=== PATIENT | female | born 1950 | race Caucasian/White ===

== ENCOUNTER → 2022-12-06 13:54 | Outpatient (BNVA) | payer MEDICARE, SELFPAY | PROVIDERS: PCP Physical Medicine & Rehabilitation; Visit Provider Physician Assistant | DX: M53.3 Sacrococcygeal disorders, not elsewhere classified (principal); G89.29 Other chronic pain; M43.26 Fusion of spine, lumbar region; Z85.528 Personal history of other malignant neoplasm of kidney; Z90.5 Acquired absence of kidney | CPT/HCPCS: 99202 ==

== ENCOUNTER 2024-03-04 08:22 | Outpatient (REF) | payer MEDICARE, SELFPAY ==
--- NOTE | ~2024-03-04 | XR_ITS ---
EXAMINATION: XR PELVIS CLINICAL INFORMATION: Hip pain. COMPARISON: None available. TECHNIQUE: AP view of the pelvis. FINDINGS: There is bony demineralization. The right acetabular joint space is well-maintained. There is moderate narrowing of the supermedial left acetabular joint space. There is peripheral osteophyte formation of the articular surfaces of the left hip. There is subchondral sclerosis of the acetabular roofs bilaterally. The femoral heads are smooth. The sacroiliac joints are symmetric and well-maintained. The pubic symphysis is intact. There are degenerative changes of the lumbosacral spine. L4-5 fusion hardware is noted. There are abdominal and pelvic surgical clips. XR/XR pelvis 1-2V IMPRESSION: 1. There is moderate to marked osteoarthritic change of the left hip, and minimal osteoarthritic change is seen of the right hip. 2. No fracture or dislocation is seen. Electronically signed by: Zane Lopez MD 04/02/2024 04:20 PM EDT
== END 2024-03-04 08:23 | disposition home or self-care (01) ==
LOC: HO.HOSX 08:22
PROVIDERS: Visit Provider Orthopaedic Surgery
DX: M25.559 Pain in unspecified hip (principal); M16.12 Unilateral primary osteoarthritis, left hip
CPT/HCPCS: 72170; 99202

== ENCOUNTER 2024-03-04 09:04 | Outpatient (AMB) | payer MEDICARE, SELFPAY ==
--- NOTE | 2024-03-04 09:10 | A.OFFVIS_ITS ---
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 Patient reports thatthis pain has been present for about two years now. No hx of physical therapy. About 3 months ago she had injections done in the hip andl the knee. She explains that the injection administered to the lateral aspect of the hip. She has some numbness and tingling radiating down the leg, which does improve with movement. Her pain is felt more significantly with gait initiation and prolonged walking. 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 Patient reports that this pain has been present for about two years now. No hx of physical therapy. About 3 months ago she had injections done in the hip andl the knee. She explains that the injection administered to the lateral aspect of the hip. She has some numbness and tingling radiating down the leg, which does improve with movement. Her pain is felt more significantly with gait initiation and prolonged walking. She had a spinal fusion which she feels contributes to much of her buttock pain. She has had intra-articular injections which have only been minimally helpful. 2 years ago she was able to play pickleball and walk comfortably. SHe would like to get back to such activity. [facility] Surgical History (Updated 03/04/24 @ 09:18 by Holly Alonso [facility]) History of back surgery Hx of right knee surgery History of left knee surgery History of hysterectomy H/O bilateral breast biopsy Hx of appendectomy (~1967) Physical Exam Vital Signs: BMI result Body Mass Index 25.8 Extrem Other: + Trendelenberg gait on the left + impingement on left hip Results Reviewed Results Reviewed: I personally reviewed relevant radiographs. S/p Lumbar fusion with left hop moderate to severe OA. Assessment & Plan Assessment & Plan (1) Arthritis of left hip: Code(s): M16.12 - Unilateral primary osteoarthritis, left hip Category: Medical Plan: This is a 73 yo F with left hip OA. She cannot walk comfortably or engage in daily activities without pain. She has taken NSAIDs (Meloxicam) and had intra- articualr injections with no benefit. This pain has been worsening for ~2 years. I recommend left SAM. I discussed the risks benefits and alternatives including but not limited to the risk of pain, infection, dislocation, LLD, dislocation, nerve injury, need for further surgery as well as potential medical complications such as blood clots, pulmonary embolism and cardiac complications. SHe expressed understanding and would like to proceed forward. We will have her speak with our Nurse Navigator and begin the pre operative clearance process. All her questions were answered. Plan I recommend Left SAM, She will meet with our Nurse Navigator Kathy for surgical planning Orders: Orders XR pelvis 1-2V Today M25.559 - Pain in unspecified hip Coding Level of Care Code New Pt Level 4 (77810) Diagnoses Arthritis of left hip M16.12
[2024-03-04 09:12] VITALS: BMI 25.8
== END 2024-03-04 10:00 | disposition home or self-care (01) ==
PROVIDERS: PCP Physical Medicine & Rehabilitation; Visit Provider Orthopaedic Surgery
DX: M16.12 Unilateral primary osteoarthritis, left hip (principal)
CPT/HCPCS: 99204

== ENCOUNTER → 2024-03-12 08:49 | Outpatient (BNVA) | payer MEDICARE, SELFPAY | PROVIDERS: PCP Internal Medicine | DX: Z01.818 Encounter for other preprocedural examination (principal) ==

== ENCOUNTER 2024-04-11 08:04 | Outpatient (REF) | payer MEDICARE, SELFPAY ==
--- NOTE | ~2024-04-11 | XR_ITS ---
EXAMINATION: XR HIP, LEFT CLINICAL INFORMATION: Left hip pain. Preoperative evaluation. COMPARISON: Pelvic radiograph dated 03/04/2024. TECHNIQUE: AP view of the pelvis as well as AP and frog-leg lateral views of the left hip. FINDINGS: Severe left hip joint space narrowing with subchondral sclerosis, marginal osteophytes, and femoral neck buttressing. Mild right hip joint space narrowing with marginal osteophytes. No acute fracture or dislocation. No concerning lytic or blastic osseous lesion. No evidence of femoral head avascular necrosis. XR/XR hip LT w PEL1V IMPRESSION: 1. Severe left hip osteoarthritis with femoral neck buttressing. 2. Mild right hip osteoarthritis. Electronically signed by: Alireza Thacker MD 04/17/2024 12:05 PM EDT
== END 2024-04-11 08:05 | disposition home or self-care (01) ==
LOC: HO.HOSX 08:04
PROVIDERS: Visit Provider Physician Assistant
DX: Z01.818 Encounter for other preprocedural examination (principal); M25.552 Pain in left hip; M16.12 Unilateral primary osteoarthritis, left hip
CPT/HCPCS: 73502; 99212

== ENCOUNTER 2024-04-11 09:06 | Outpatient (AMB) | payer MEDICARE, SELFPAY ==
--- NOTE | 2024-04-11 09:09 | A.OFFVIS_ITS ---
Vital Signs 04/11/24 09:13 Height 5 ft 6 in Weight 160 lb BMI 25.8 Intake Visit Reasons: Pre-Op: L SAM w/NE 04/17/24 Intake Note: Courtney is a 73 year old female who presents today for a pre op appointment for her left SAM 04/17/24 NE. Allergies itraconazole [From Sporanox] Allergy (Severe, Verified 04/11/24 09:12) Facial Swelling, throat swelling HPI HPI Pre-Op: L SAM w/NE 04/17/24: Details: 73-year-old female who presents in the office today for her preoperative history and physical exam prior to a left total hip arthroplasty to be performed on 04/17/[address] Akhil Donato.?She has tried and fail all conservative treatment and the left hip osteoarthritis has affected her quality of life and therefore, she has elected to move forward with a left total hip arthroplasty. ? Patient has an allergy history, as follows:? -Itraconazole; facial edema and throat edema? ? Patient is currently taking, as follows:? -Bupropion HCI SR 150 mg PO QAM? -Calcium carbonate 200 mg PO BID PRN? -Fluoxetine 40 mg PO QAM? -Omeprazole magnesium 20 mg PO daily PRN? -Solifenacin 5 mg PO daily? ? Patient has a medical history, as follows:? -Depression? -Anxiety? -Fatty liver? -GERD? -Hx of blood transfusion? -Hx of kidney cancer? ? Patient has a surgical history, as follows:? -Hx of nephrectomy, left 2005? -Hx?of pubovaginal sling? -Hx of colonoscopy? -Hx of tubal ligation? -Hx of ovarian cystectomy? -Hx of back surgery? -Hx of right knee surgery? -Hx of left knee surgery? -Hx of hysterectomy? -Hx?bilateral breast biopsy? -Hx of appendectomy? ? Patient has a social history, as follows:? -Tobacco: Former user? PFSH Medical History (Updated 04/09/24 @ 10:44 by Maria Dolores Chen RN) Depression Anxiety Arthritis Fatty liver Osteoarthritis Back pain GERD (gastroesophageal reflux disease) History of blood transfusion (~2000) History of kidney cancer Surgical History (Updated 04/11/24 @ 09:38 by Christi George PA-C) History of nephrectomy, left (~2005) History of pubovaginal sling Hx of colonoscopy Hx of tubal ligation Hx of ovarian cystectomy History of back surgery Hx of right knee surgery History of left knee surgery History of hysterectomy H/O bilateral breast biopsy Hx of appendectomy (~1966) Social History (Updated 04/11/24 @ 09:12 by Олег Lazaro) Are you a primary primary health care nurse to a significant other at home: No Do you presently have visiting nurse or other home services: No Alcohol intake: never Comment: aware of trip hazard Patient Tobacco Use Status: Former Tobacco user Tobacco use type: Cigarette Review of Systems Const All systems reviewed & are unremarkable except as noted in HPI and below Physical Exam Vital Signs: BMI result Body Mass Index 25.8 Const General: cooperative, healthy appearing, comfortable, no acute distress, well developed, alert and awake Orientation/consciousness: patient oriented x3 HEENT Head: Yes normal to inspection, Yes normocephalic and Yes atraumatic Eyes General: appearance normal, both eyes and all related structures Neck Neck: Yes normal visual inspection and Yes no lymphadenopathy Resp Effort & Inspection: normal respiratory effort and able to speak in complete sentences Cardio Rate: regular rate Peripheral pulses: Peripheral pulses 2+ throughout GI Inspection: Yes normal to inspection Palpation (GI): Soft to palpation Skin General skin exam: no rashes or lesions noted Neuro General: patient oriented x3 Extrem Other: + Trendelenberg gait on the left + impingement on left hip Psych Mental Status: mental status grossly normal Assessment & Plan Assessment & Plan (1) Arthritis of left hip: Code(s): M16.12 - Unilateral primary osteoarthritis, left hip Category: Medical Plan Ms. De Santiago is a 73-year-old female who presents in the office today for her preoperative history and physical exam prior to a left total hip arthroplasty to be performed on 04/17/[address] Akhil Donato.?? ? Patient has an allergy history, as follows:? -Itraconazole; facial edema and throat edema? ? Patient is currently taking, as follows:? -Bupropion HCI SR 150 mg PO QAM? -Calcium carbonate 200 mg PO BID PRN? -Fluoxetine 40 mg PO QAM? -Omeprazole magnesium 20 mg PO daily PRN? -Solifenacin 5 mg PO daily? ? Patient has a medical history, as follows:? -Depression? -Anxiety? -Fatty liver? -GERD? -Hx of blood transfusion? -Hx of kidney cancer; in 2006, has one kidney ? Patient has a surgical history, as follows:? -Hx of nephrectomy, left 2005? -Hx?of pubovaginal sling? -Hx of colonoscopy? -Hx of tubal ligation? -Hx of ovarian cystectomy? -Hx of back surgery? -Hx of right knee surgery? -Hx of left knee surgery? -Hx of hysterectomy? -Hx?bilateral breast biopsy? -Hx of appendectomy? ? Patient has a social history, as follows:? -Tobacco: Former user? ? I discussed in detail the procedure and what to expect pre and post operatively. We discussed the risks, benefits, alternatives to the surgery and the rehabilitation course. The risks include infection, bleeding, nerve injury, ongoing pain, swelling, and stiffness, perioperative risk of injury to bones and soft tissues, and blood clots.?? ? I have answered all questions and with their understanding they have consented to move forward with a left total hip arthroplasty to be performed on 04/17/[address] Akhil Donato.? Patient confirms having a walker. We discussed post operative PT. The patient would like to attend an outpatient facility but is unsure the location at this time. I will place the order today and the patient will call once she decides where she would like to attend. The order will be faxed at that time. ? Patient is unable to take NSAIDs due to a hx of nephrectomy in 2005. Will be prescribe Lovanox for 6 weeks post-op for DVT prophylaxis due to hx of kidney cancer. Follow-up will be at the post operative appointment on 05/02/24, or sooner if needed.? ? X-rays obtained for surgical planning.? Orders: Orders XR hip LT w PEL1V Today M25.559 - Pain in unspecified hip PT Evaluation and Treatment Today Z96.642 - Presence of left artificial hip joint Patient Instructions: Scribed by Kisha Berg medical review coordinator, for Christi George PA-C on 04/11/2024 at 9:25 am, EST.? Coding Level of Care Code Global (91136) Diagnoses Arthritis of left hip M16.12
[2024-04-11 09:13] VITALS: BMI 25.8
== END 2024-04-11 09:36 | disposition home or self-care (01) ==
PROVIDERS: PCP Internal Medicine; Visit Provider Physician Assistant
DX: M16.12 Unilateral primary osteoarthritis, left hip (principal)
CPT/HCPCS: 99024

== ENCOUNTER 2024-04-17 06:31 | Inpatient (IN) | payer MEDICARE, SELFPAY ==
[2024-04-09 10:24] VITALS: BP 126/76; PULSE 88; RESP 16; O2SAT 96; BMI 25.5
--- NOTE | 2024-04-09 10:47 | HO.ANESPROP2 ---
Documented by User: Anju Landaverde NP 04/16/24 10:34 HPI - Anesthesia Eval Consult details Narrative: 73yo F for Left Hip Total Replacement, 04/17/24 Medically optimized per [facility] preop clinic Cardiac optimized No recent illness. Mild seasonal allergy, no PND No CP/SOB with limited activity d/t hip pain GERD: ppi controls PMFSH Active Problems Active Problems: All Active Problems Arthritis of left hip (Acute) Chronic SI joint pain (Acute) Past Medical History Medical History Depression Anxiety Arthritis Fatty liver Osteoarthritis Back pain GERD (gastroesophageal reflux disease) History of blood transfusion (~2000) History of kidney cancer Family History Family history of problems with anesthesia: No Surgical History Surgical History History of nephrectomy, left (~2005) History of pubovaginal sling Hx of colonoscopy Hx of tubal ligation Hx of ovarian cystectomy History of back surgery Hx of right knee surgery History of left knee surgery History of hysterectomy H/O bilateral breast biopsy Hx of appendectomy (~1966) History of Problems with Anesthesia: No Social History Social History Household Members: Spouse and Significant Other Housing: House Are you a primary rn progressive care unit to a significant other at home: No Do you presently have visiting nurse or other home services: No Alcohol intake: never Comment: aware of trip hazard Patient Tobacco Use Status: Former Tobacco user Tobacco use type: Cigarette Smoked in Last 30 Days: No Use of substances other than those prescribed or required for medical reasons: No Have you been hit, kicked, punched, or otherwise hurt by someone within the past year? If so, by whom?: No Spiritual Healthcare Practices: none Oriental Orthodox Healthcare Practices: none Cultural Healthcare Practices: none Are you DNR?: No Advance Directives: No Advance Directives Information Provided: Yes Advance Directives on File: No Recently lost weight without trying: No Nutrition Risks: No Nutritional Risk Meds Allergies Allergy/AdvReac Type Severity Reaction Status Date / Time itraconazole [From Sporanox] Allergy Severe Facial Verified 04/11/24 09:12 Swelling, throat swelling Home Medications ?Medication ?Instructions ?Recorded ?Confirmed ?Last Taken ?Type solifenacin 5 mg tablet (Vesicare) 5 mg PO DAILY 03/04/24 04/09/24 04/16/24 History bupropion HCl 150 mg tablet,12 hr 150 mg PO QAM 04/09/24 04/09/24 04/16/24 History sustained-release calcium carbonate (Tums) 200 mg PO BID PRN Gastric Reflux 04/09/24 04/09/24 04/16/24 History fluoxetine 40 mg capsule 40 mg PO QAM 04/09/24 04/09/24 04/17/24 History omeprazole magnesium 20 mg 20 mg PO DAILY PRN Gastric Reflux 04/09/24 04/09/24 04/17/24 History tablet,delayed release (Prilosec OTC) Exam Height,Weight and Vital Signs: Height 5 ft 6.14 in Weight 72.1 kg Last Vital Signs Pulse 88 04/09/24 10:24 Resp 16 04/09/24 10:24 BP 126/76 04/09/24 10:24 Pulse Ox 96 04/09/24 10:24 O2 Del Method Room Air 04/09/24 10:24 Narrative Narrative: ECHO 12/2023 Summary The left ventricle is normal in size, wall thickness and systolic function. The ejection fraction is 55-65%. No regional wall motion abnormalities seen. Normal diastolic function. The right ventricle is normal in size and function. No significant valve disease. Comparison Comparison is made to the study of December 12, 2012. EKG 07/2023 Ventricular Rate: 76 BPM Atrial Rate: 76 BPM P-R Interval: 164 ms QRS Duration: 88 ms Q-T Interval: 412 ms QTC Calculation(Bazett): 463 ms P [place]: 20 degrees R [place]: 60 degrees T [place]: 52 degrees Normal sinus rhythm Nonspecific ST abnormality Abnormal ECG When compared with ECG of 27-SEP-2010 08:03, Nonspecific T wave abnormality now evident in Inferior leads Confirmed by JILLIAN LOCKWOOD ([id number]) on 07/31/2023 12:16:26 PM Airway Mallampati Class: I TM Dist: >3cm Neck ROM: Full Partial: Upper Loose/Missing/Broken Teeth: Yes (implants broken, posts remain) Heart: RRR Lungs: CTAB Assessment and Plan Assessment Anesthesia Assessment: Anesthesia Plan Discussed and PAT Visit Final Anesthetic Review Family History of Problems with Anesthesia: No History of Problems with Anesthesia: No Documented by User: Stephanie Copeland MD 04/17/24 08:28 PMFSH Past Medical History Medical History Depression Anxiety Arthritis Fatty liver Osteoarthritis Back pain GERD (gastroesophageal reflux disease) History of blood transfusion (~2000) History of kidney cancer Surgical History Surgical History History of nephrectomy, left (~2005) History of pubovaginal sling Hx of colonoscopy Hx of tubal ligation Hx of ovarian cystectomy History of back surgery Hx of right knee surgery History of left knee surgery History of hysterectomy H/O bilateral breast biopsy Hx of appendectomy (~1966) Social History Social History Household Members: Spouse and Significant Other Housing: House Are you a primary rn progressive care unit to a significant other at home: No Do you presently have visiting nurse or other home services: No Alcohol intake: never Comment: aware of trip hazard Patient Tobacco Use Status: Former Tobacco user Tobacco use type: Cigarette Smoked in Last 30 Days: No Use of substances other than those prescribed or required for medical reasons: No Have you been hit, kicked, punched, or otherwise hurt by someone within the past year? If so, by whom?: No Spiritual Healthcare Practices: none Oriental [employer] Healthcare Practices: none Cultural Healthcare Practices: none Are you DNR?: No Advance Directives: No Advance Directives Information Provided: Yes Advance Directives on File: No Recently lost weight without trying: No Nutrition Risks: No Nutritional Risk Meds Allergies Allergy/AdvReac Type Severity Reaction Status Date / Time itraconazole [From Sporanox] Allergy Severe Facial Verified 04/11/24 09:12 Swelling, throat swelling Home Medications ?Medication ?Instructions ?Recorded ?Confirmed ?Last Taken ?Type solifenacin 5 mg tablet (Vesicare) 5 mg PO DAILY 03/04/24 04/09/24 04/16/24 History bupropion HCl 150 mg tablet,12 hr 150 mg PO QAM 04/09/24 04/09/24 04/16/24 History sustained-release calcium carbonate (Tums) 200 mg PO BID PRN Gastric Reflux 04/09/24 04/09/24 04/16/24 History fluoxetine 40 mg capsule 40 mg PO QAM 04/09/24 04/09/24 04/17/24 History omeprazole magnesium 20 mg 20 mg PO DAILY PRN Gastric Reflux 04/09/24 04/09/24 04/17/24 History tablet,delayed release (Prilosec OTC) Exam Airway Mallampati Class: II Assessment and Plan Final Anesthetic Review NPO: Yes ASA Class: II Final Preanesthetic Review: No Changes in Pt Med Stat, Meds/Allgs Chart Reviewed, Consent Obtained/Reviewed and Anes Risks/Benef Reviewed Patient Risk: Low Procedure Risk: Low Anesthetic Plan Anesthetic Plan: GA Disposition: Standard PACU
[2024-04-09 12:02] LABS: Hematocrit 40.1 % (37.0-47.0); Hemoglobin 13.4 g/dl (12.0-16.0); Mean Corpuscular HGB Conc 33.4 g/dl (31.0-35.0); Mean Corpuscular Hemoglobin 31.2 pg (27.0-33.0); Mean Corpuscular Volume 93.5 fL (80.0-98.0); Mean Platelet Volume 9.6 fL (9.4-12.3); Platelet Count 286 X10*3/uL (160-400); Red Blood Count 4.29 X10*6/uL (4.20-5.50); Red Cell Distribution Width 13.4 % (11.0-16.0); White Blood Count 8.1 X10*3/uL (4.8-10.8)
[2024-04-09 12:37] LABS: Anion Gap 13 (12-20); Blood Urea Nitrogen 21 mg/dL (9-16); Calcium 9.8 mg/dL (8.4-10.2); Carbon Dioxide 26 mmol/L (22-29); Chloride 107 mmol/L (96-108); Creatinine Clr Calc Pharmacy 54.5; Estimated Glomerular Filt Rate 60; Glucose Random 104 mg/dL (60-115); Potassium 4.1 mmol/L (3.3-5.1); Sodium 142 mmol/L (135-145)
[2024-04-09 12:56] LABS: MRSA Nasal PCR NEGATIVE (Negative); SA Nasal PCR NEGATIVE (Negative)
[2024-04-17] VITALS (14 sets, daily range): BP systolic 97–137; BP diastolic 54–76; PULSE 78–96; RESP 14–20; TEMP 36.1–36.9; O2SAT 93–100
--- NOTE | ~2024-04-17 | XR_ITS ---
EXAMINATION: XR PELVIS CLINICAL INFORMATION: Status post revision left hip. COMPARISON: None available. TECHNIQUE: AP view of the pelvis. FINDINGS: Status post total hip prosthesis revision and postoperative changes present. There are surgical sherlyn along the lateral hip from intervention. XR/XR pelvis 1-2V IMPRESSION: Is post left hip prosthetic revision. There is new lateral proximal femoral curved fransisca and cerclage wires when compared to previous study 04/17/2024. No change in the left hip total prosthesis. Rest of the pelvis is unremarkable. Electronically signed by: João James MD 04/19/2024 07:58 PM EDT RP
--- NOTE | ~2024-04-17 | XR_ITS ---
EXAMINATION: XR HIP, LEFT CLINICAL INFORMATION: [place] snap while ambulating COMPARISON: April 17, 2024 TECHNIQUE: Two views of the left hip. FINDINGS: Patient is status post total left hip replacement with well-positioned prosthesis. There is fracture through the base of the greater can't, new since previous study. Soft tissues unremarkable. Postsurgical sherlyn present in the left hip XR/XR hip LT w PEL1V IMPRESSION: Fracture through the greater trochanter Electronically signed by: Boston Almendarez MD 04/18/2024 08:39 AM EDT
--- NOTE | ~2024-04-17 | XR_ITS ---
EXAMINATION: XR PELVIS CLINICAL INFORMATION: Total left hip arthroplasty. COMPARISON: Left hip radiographs dated 04/11/2024. TECHNIQUE: AP view of the lower pelvis. FINDINGS: Left hip arthroplasty in expected anatomic alignment. No hardware fracture or dislocation. No osseous fracture. No perihardware lucency. No radiopaque foreign body. Overlying surgical sherlyn. Phleboliths within the pelvis. Mild right hip osteoarthritis. XR/XR pelvis 1-2V IMPRESSION: Left hip arthroplasty without evidence of complication. Electronically signed by: Alireza Thacker MD 04/17/2024 12:04 PM EDT
[2024-04-17] MEDS: Lactated Ringers 1,000 ML 100 ML IVCONT ×3 (06:48→22:03)
[2024-04-17] MEDS: oxyCODONE HCl ER 10 MG TAB.ER.12H PO ×3 (06:48→22:08)
[2024-04-17 06:58] LABS: Hematocrit 38.3 % (37.0-47.0)
--- NOTE | 2024-04-17 07:28 | MHC.SHP ---
Pre-Procedural Eval Section A - 24 Hr Update-Section A only Date of Service: 04/17/24 The patient is an INPATIENT: No Changes since office visit: No Cold of Flu in the past 2 weeks, No New Medical Problems, No Changes in Medication and No Patient answered all questions The patient has been examined within 24 hours of the surgical procedure. The History & Physical has been completed within 30 days and I have reviewed it.: Yes Section B - Complete if H&P > 30 days Chief Complaint: LTHA Allergies: Allergies Allergy/AdvReac Type Severity Reaction Status Date / Time itraconazole [From Sporanox] Allergy Severe Facial Verified 04/11/24 09:12 Swelling, throat swelling Plan I have reviewed the history and physical and performed a pertinent physical examination on my patient. No changes have occurred unless specified. Time Spent With Patient Time: Total time managing care of this patient today ____ minutes.
--- NOTE | 2024-04-17 09:26 | PM.OP ---
Brief Operative Note Date of Service: 04/17/24 Pre-op diagnosis: Left hip OA Post-op diagnosis: same Procedure: Left SAM Implants: [place] Trident2 52 [place] Accolade2 #6 132 /+2.5 36 ceramic Surgeon: Akhil Donato MD Anesthesia: GETA and local Was an Procedures Nurse used for this Procedure?: Yes Procedures Nurse: Christi George Estimated blood loss (mL): 250 IV fluids (mL): 1,000 Pathology: other Condition: stable Disposition: PACU
--- NOTE | 2024-04-17 09:36 | PHA.MEDREC ---
Addendum entered by Moisés Hood 04/17/24 09:42: [facility] verified Original Note: Pharmacy Consult ? Medication Reconciliation Pharmacy has reviewed the medication reconciliation done by nurse.
[2024-04-17] MEDS: Tolterodine Tartrate LA 4 MG CAP.ER.24H PO (11:58)
[2024-04-17] MEDS: FLUoxetine HCl 20 MG CAPSULE 40 MG PO (11:59)
[2024-04-17] MEDS: HYDROmorphone HCl 0.5 MG/0.5 ML SYRINGE 0.25 MG IVPUSH ×3 (11:59→22:07)
[2024-04-17] MEDS: Docusate Sodium 100 MG CAPSULE PO ×2 (11:59→22:08)
[2024-04-17] MEDS: ceFAZolin Sodium/Dextrose,Iso 2 GM/50 ML PIGGYBACK IV (13:49)
[2024-04-17] MEDS: oxyCODONE HCl Immed Release 5 MG TABLET PO (13:55)
--- NOTE | 2024-04-17 14:21 | HO.PM.IMCN ---
History of Present Illness Data of Consult Service Date: 04/17/24 Requesting physician: Akhil Donato Primary Care Provider: Billy Floyd MD HPI Reason for consult: medical consult 74 yo f with a medical hx including GERD, mood disorder, and hx of L kidney cancer (s/p left nephrectomy) now s/p L THR secondary to OA post op day 0. Feeling well. No N/V, dizziness, SOB or chest pain. has not urinated yet. L leg still with numbness. Review of Systems ENT: Denies dizziness Cardiovascular: Cardiovascular: Denies chest pain and Denies dyspnea Respiratory: Respiratory: Denies dyspnea Gastrointestinal: Gastrointestinal: Denies abdominal pain Neurologic: Denies dizziness [facility] Medical History (Updated 04/17/24 @ 15:03 by Kathrine Ovalle PA-C) Depression Anxiety Arthritis Fatty liver Osteoarthritis Back pain GERD (gastroesophageal reflux disease) History of blood transfusion (~2000) History of kidney cancer Surgical History History of nephrectomy, left (~2005) History of pubovaginal sling Hx of colonoscopy Hx of tubal ligation Hx of ovarian cystectomy History of back surgery Hx of right knee surgery History of left knee surgery History of hysterectomy H/O bilateral breast biopsy Hx of appendectomy (~1966) Social History Household Members: Significant Other Housing: House Are you a primary resident care supervisor to a significant other at home: No Do you presently have visiting nurse or other home services: No Alcohol intake: never Comment: aware of trip hazard Patient Tobacco Use Status: Former Tobacco user Tobacco use type: Cigarette Smoked in Last 30 Days: No Use of substances other than those prescribed or required for medical reasons: No Have you been hit, kicked, punched, or otherwise hurt by someone within the past year? If so, by whom?: No Do you feel safe in your current relationship?: Yes Is there a partner from a previous relationship who is making you feel unsafe now?: No Are you made to feel afraid or neglected: No Spiritual Healthcare Practices: none Voodoo Healthcare Practices: none Cultural Healthcare Practices: none Are you DNR?: No Advance Directives: No Advance Directives Information Provided: Yes Advance Directives on File: No Do you have a plan to hurt others: No Plan Recently lost weight without trying: No Eating poorly because of decreased appetite: No Nutrition Risks: No Nutritional Risk Patient : No : No Poor oral hygiene: No Meds Allergies Allergy/AdvReac Type Severity Reaction Status Date / Time itraconazole [From Sporanox] Allergy Severe Facial Verified 04/11/24 09:12 Swelling, throat swelling Active Medications: Current Medications Acetaminophen (Acetaminophen 325 Mg Tablet) 650 mg PO Q6H PRN PRN Reason: Pain, Mild (Pain Scale 1-3), fever or headache Bupropion HCl (Bupropion Hcl Xl 150 Mg Tab.Er.24h) 150 mg PO DAILY [facility] Calcium Carbonate (Calcium Carbonate 750 Mg Tab.Chew) 375 mg PO BID PRN PRN Reason: Gastric Reflux Docusate Sodium (Docusate Sodium 100 Mg Capsule) 100 mg PO BID [facility] Last Admin: 04/17/24 11:59 Dose: 100 mg Fluoxetine HCl (Fluoxetine Hcl 20 Mg Capsule) 40 mg PO DAILY [facility] Last Admin: 04/17/24 11:59 Dose: 40 mg Hydromorphone HCl (Hydromorphone Hcl 0.5 Mg/0.5 Ml Syringe) 0.25 mg IVPUSH Q5M PRN PRN Reason: Pain, Moderate to Severe (Pain Scale 4-10) Stop: 04/17/24 14:29 Hydromorphone HCl (Hydromorphone Hcl 0.5 Mg/0.5 Ml Syringe) 0.25 mg IVPUSH Q4H PRN; Protocol PRN Reason: Pain, Severe (Pain Scale 7-10) Last Admin: 04/17/24 11:59 Dose: 0.25 mg Lactated Ringer's (Lr) 1,000 mls @ 100 mls/hr IVCONT .Q10H [facility] Last Admin: 04/17/24 12:05 Dose: 100 mls/hr Cefazolin Sodium/Dextrose (Ancef) 2 gm in 50 mls @ 100 mls/hr IV POSTOP@1430 ONE Stop: 04/17/24 14:59 Last Admin: 04/17/24 13:49 Dose: 100 mls/hr Naloxone HCl (Naloxone Hcl 0.4 Mg/Ml Vial) 0.04 mg IVPUSH Q5M PRN PRN Reason: Excessive sedation or RR < 8 Omeprazole (Omeprazole 20 Mg Capsule.Dr) 20 mg PO DAILY PRN PRN Reason: Gastric Reflux Ondansetron HCl (Ondansetron Hcl 4 Mg/2 Ml Vial) 4 mg IVPUSH ONCE PRN PRN Reason: Nausea and Vomiting Stop: 04/17/24 14:29 Ondansetron HCl (Ondansetron Hcl 4 Mg/2 Ml Vial) 4 mg IVPUSH Q8H PRN PRN Reason: Nausea and Vomiting Oxycodone HCl (Oxycodone Hcl Immed Release 5 Mg Tablet) 5 mg PO Q4H PRN PRN Reason: Pain, Moderate(Pain Scale 4-6) Last Admin: 04/17/24 13:55 Dose: 5 mg Oxycodone HCl (Oxycodone Hcl Er 10 Mg Tab.Er.12h) 10 mg PO BID [facility] Last Admin: 04/17/24 11:58 Dose: 10 mg Sodium Chloride (0.9 % Sodium Chloride Flush 3 Ml Syringe) [facility] Tolterodine Tartrate (Tolterodine Tartrate La 4 Mg Cap.Er.24h) 4 mg PO DAILY [facility] Last Admin: 04/17/24 11:58 Dose: 4 mg Home Medications ?Medication ?Instructions ?Recorded ?Confirmed ?Last Taken ?Type solifenacin 5 mg tablet (Vesicare) 5 mg PO DAILY 03/04/24 04/09/24 04/16/24 History bupropion HCl 150 mg tablet,12 hr 150 mg PO DAILY 04/09/24 04/17/24 04/16/24 History sustained-release calcium carbonate (Tums) 200 mg PO BID PRN Gastric Reflux 04/09/24 04/09/24 04/16/24 History fluoxetine 40 mg capsule 40 mg PO DAILY 04/09/24 04/17/24 04/17/24 History omeprazole magnesium 20 mg 20 mg PO DAILY PRN Gastric Reflux 04/09/24 04/09/24 04/17/24 History tablet,delayed release (Prilosec OTC) Physical Exam Vital Signs and Narrative: Vital Signs: Last Vital Signs Temp 97.4 F 04/17/24 11:26 Pulse 84 04/17/24 11:26 Resp 16 04/17/24 11:26 BP 105/61 04/17/24 11:26 Pulse Ox 96 04/17/24 11:26 O2 Del Method Room Air 04/17/24 11:26 O2 Flow Rate 3 04/17/24 10:58 BMI result Body Mass Index 25.5 Const: Other: notes still some mild confusion from anesthesia General: cooperative, healthy appearing, comfortable, no acute distress, alert and awake Orientation/consciousness: oriented to person, oriented to place and oriented to time Resp: Effort & Inspection: normal respiratory effort and able to speak in complete sentences Auscultation: clear to auscultation bilaterally Cardio: Rate: regular rate Rhythm: regular rhythm Heart sounds: S1 normal heart sound present and S2 normal heart sound present GI: Inspection: Yes normal to inspection Percussion: Yes normal to percussion Auscultation: normal bowel sounds Neuro: General: oriented to person, oriented to place and oriented to time Extrem: Other: pneumo boots on currently. able to move legs Results Labs 04/17/24 06:52 04/09/24 11:17 Imaging Radiologist's Impressions: Impressions Pelvis X-Ray 04/17/24 10:40 IMPRESSION: Left hip arthroplasty without evidence of complication. Electronically signed by: Alireza Thacker MD 04/17/2024 12:04 PM EDT RP Assessment and Plan (1) Status post total hip replacement, left: Status: Acute (2) Arthritis of left hip: Status: Chronic (3) GERD (gastroesophageal reflux disease): Status: Chronic (4) History of kidney cancer: Status: Resolved Plan 74 yo f with a medical hx including GERD, mood disorder, and hx of L kidney cancer (s/p left nephrectomy) now s/p L THR secondary to OA post op day 0 L hip OA - s/p L THR - plan per ortho GERD - continue omeprazole 20mg QD PRN - TUMs 375mg PO BID PRN mood disorder - continue buproprion 150mg PO QD and fluoxetine 40mg PO QD hx L kidney ca - s/p nephrectomy Thank you for allowing me to consult and care for this patient. If any questions or concerns regarding her care please contact me.
--- NOTE | 2024-04-17 15:00 | P.OP_ITS ---
Operative Note Operative Note Date of Service: 04/17/24 Narrative: Date of Service: 04/17/24 Pre-op diagnosis: Left hip OA Post-op diagnosis: same Procedure: Left SAM Implants: [place]2 52 Rosalinda Accolade2 #6 132 /+2.5 36 ceramic Surgeon: Akhil Donato MD Anesthesia: GETA and local Was an Produce Field Merchandiser used for this Procedure?: Yes Produce Field Merchandiser: Christi George Estimated blood loss (mL): 250 IV fluids (mL): 1,000 Pathology: other Condition: stable Disposition: PACU Patient was brought into the operating room and placed in the right lateral decubitus position. All bony prominences were well padded and the limb was prepped and draped in standard sterile fashion. A time-out was called to identify proper site procedure proper surgeon IV antibiotics and 1 g of tranexamic acid were administered. I began by making a curvilinear incision over the posterolateral aspect of the greater trochanter. Dissection was taken down to the tensor fascia which was incised in line with the incision and a Charnley retractor was placed. Cautery was used to maintain hemostasis. The hip was internally rotated and the external rotators were identified. The vessels were cauterized and a full-thickness capsular/external rotator layer was developed starting just proximal to the piriformis. This layer was tagged and a dull Hohmann retractor was placed underneath the neck in the hip was dislocated. A neck cut was made 1 cm proximal to the lesser trochanter and the head and neck were removed and measured 48-50mm on the back table. The head was deformed and eburnated. I then removed the labrum and cauterized the fovea. I started with a 44 reamer and medialized to the inner table. I sequentially reamed up to a size 52 and impacted a 52mm cup at 45 degrees of inclination and 25 degrees of version. I then placed a 20 deg posterior lipped liner and turned my attention to the femur. I identified the piriformis insertion and used this as a starting point for my manny cutter. The medius tendon was protected with a Hibs retractor. A Charnley awl was inserted in the canal and a curved curette used to remove the lateral bone. I irrigated copiously. I then sequentially broached in the patient's natural version to a size 6 and placed my trial implants. I used a #6/132/+2.5 based on my pre-operative template. I removed all instrumentation and copiously irrigated. I placed my final femoral implant and again took the hip through range of motion and was satisfied with the stability and length. The final +2.5 implant was impacted in place and the hip reduced. I then irrigated copiously and placed 1 g of local tranexamic acid. I performed a capsular closure with 2.0 fiberwire, Preeti's fascia with 0 Vicryl, subcuticular with 2-0 Vicryl and the skin with sherlyn. Patient was placed into a sterile dressing. Patient was extubated brought to the recovery room in stable condition. There were no known complications.
[2024-04-17] MEDS: 0.9 % Sodium Chloride Flush 3 ML SYRINGE IVFLUSH (22:07)
[2024-04-18] VITALS (8 sets, daily range): BP systolic 96–123; BP diastolic 50–62; PULSE 87–97; RESP 16–18; TEMP 34.7–37.8; O2SAT 95–98
[2024-04-18] MEDS: HYDROmorphone HCl 0.5 MG/0.5 ML SYRINGE 0.25 MG IVPUSH ×4 (02:00→19:33)
[2024-04-18] MEDS: Acetaminophen 325 MG TABLET 650 MG PO ×2 (04:30→11:58)
[2024-04-18] MEDS: oxyCODONE HCl Immed Release 5 MG TABLET PO ×2 (04:30→11:39)
[2024-04-18 06:46] LABS: Anion Gap 10 (12-20); Blood Urea Nitrogen 14 mg/dL (9-16); Carbon Dioxide 27 mmol/L (22-29); Chloride 106 mmol/L (96-108); Creatinine Clr Calc Pharmacy 58.1; Estimated Glomerular Filt Rate > 60; Glucose Fasting 120 mg/dL (60-99); Potassium 4.7 mmol/L (3.3-5.1); Sodium 138 mmol/L (135-145)
[2024-04-18 07:08] LABS: Basophils Percent Auto 0.3 % (0-2); Hematocrit 28.9 % (37.0-47.0); Hemoglobin 9.5 g/dl (12.0-16.0); Imm Gran Pct Auto 0.7 % (0.0-0.4); Lymphocytes Percent Auto 7.3 % (20-40); MANUAL DIFF FLAG SCAN; Mean Corpuscular HGB Conc 32.9 g/dl (31.0-35.0); Mean Corpuscular Hemoglobin 30.4 pg (27.0-33.0); Mean Corpuscular Volume 92.6 fL (80.0-98.0); Mean Platelet Volume 9.9 fL (9.4-12.3); Monocytes Absolute Auto 1.7 X10*3/uL (0.1-1.2); Monocytes Percent Auto 11.6 % (2-11); Neutrophils Absolute Auto 11.4 x10*3/uL (2.0-8.3); Neutrophils Percent Auto 80.1 % (45-73); Platelet Count 224 X10*3/uL (160-400); Red Blood Count 3.12 X10*6/uL (4.20-5.50); Red Cell Distribution Width 13.3 % (11.0-16.0); SCAN SMEAR FLAG 1; White Blood Count 14.2 X10*3/uL (4.8-10.8)
--- NOTE | 2024-04-18 07:56 | HO.POSTANES ---
Post Anesthesia Evaluation Post Anesthesia Evaluation Date of Service: 04/18/24 Vital Signs: Vital Signs Temp Pulse Resp BP Pulse Ox O2 Del Method 04/18/24 07:24 106/57 L 04/18/24 07:00 94.4 F L 95 18 96/50 L 95 Room Air 04/18/24 03:00 97.2 F 88 17 123/56 L 95 Room Air 04/17/24 23:00 97.2 F 87 18 107/59 L 96 Room Air Anesthesia: General Endotracheal-GETA Mental Status: Awake Pain Control: Satisfactory Nausea/Vomiting: None Hydration: Adequate Anesthesia-Related Issues: No Anes. Related Issues
[2024-04-18] MEDS: Docusate Sodium 100 MG CAPSULE PO ×2 (08:14→19:33)
[2024-04-18] MEDS: FLUoxetine HCl 20 MG CAPSULE 40 MG PO (08:14)
[2024-04-18] MEDS: 0.9 % Sodium Chloride Flush 3 ML SYRINGE IVFLUSH (08:14)
[2024-04-18] MEDS: Tolterodine Tartrate LA 4 MG CAP.ER.24H PO (08:14)
[2024-04-18] MEDS: Lactated Ringers 1,000 ML 100 ML IVCONT ×2 (08:59→19:31)
[2024-04-18 09:15] LABS: SLIDE REVIEW VERIFIED
[2024-04-18] MEDS: oxyCODONE HCl ER 10 MG TAB.ER.12H PO ×2 (09:25→19:33)
--- NOTE | 2024-04-18 09:37 | PM.PNORT ---
Subjective Subjective Date of Service: 04/18/24 Interval history: Patient is a 74-year-old female who is postop day 1 from left total hip arthroplasty Patient reports that overnight, she was attempting to ambulate to the commode, when she felt a snapping sensation, and had increased pain Has been unable to bear weight since that time Increased pain in the left lower extremity, particularly at the hip Physical Exam Vital Signs: Vital Signs: Last Vital Signs Temp 94.4 F L 04/18/24 07:00 Pulse 95 04/18/24 07:00 Resp 18 04/18/24 07:00 BP 106/57 L 04/18/24 07:24 Pulse Ox 95 04/18/24 07:00 O2 Del Method Room Air 04/18/24 07:00 O2 Flow Rate 3 04/17/24 10:58 BMI result Body Mass Index 25.5 Extrem: Other: No visible deformity of the left hip Patient reports tenderness to gentle palpation about the lateral aspect of the left hip Dressing clean, dry, intact Compartments soft, nontender Distal sensation intact Capillary refill brisk No evidence of shortening or external rotation Procedures Date of Service Date of Service: 04/18/24 Progress Note: A&P Assessment and plan (1) Status post total hip replacement, left: Status: Acute (2) Periprosthetic fracture around internal prosthetic left hip joint: Status: Acute Plan X-rays today demonstrate minimally displaced periprosthetic fracture of the greater trochanter of the left hip Case was discussed with Dr. Donato, who did see the patient this morning Toe-touch weight-bearing on left lower extremity NPO at midnight for surgery tomorrow The risks and benefits of operative treatment were discussed with the patient and the patient wishes to proceed with surgery. These risks include, but are not limited to, risk of damage to blood vessels, nerves, tendons, infection, recurrence, incomplete relief of preoperative symptoms, persistent pain, possible need for further surgery, and the risks associated with regional blocks and/or anesthesia. Plan is to take the patient to the operating room at some point in the next few weeks for the following procedures: 1. Left total hip arthroplasty revision Time Spent With Patient Time: Total time managing care of this patient today ____ minutes. Quality Stroke Does the patient have a stroke diagnosis?: No VTE Prior VTE?: No VTE Risk Level:: Surgical - very high VTE Device Contraindication: N/A - Device Ordered VTE Drug Contraindication: Treatment Not Indicated (Revision tomorrow)
--- NOTE | 2024-04-18 11:24 | MHC.CM.PN ---
IMM delivered. Patient lives in a home w/ S[place]Juan[address] [place]. Independent. Uses cane/walker PRN. PCP Billy Floyd MD Report she has an HCP naming agents: Dionna, [place] and daughter Kathrine. S.O will bring in copy. DP: Awaiting revision in OR tomorrow. Will need STR. Prefers [facility]. Referral in [facility]. CM will continue to follow.
[2024-04-18] MEDS: buPROPion HCl XL 150 MG TAB.ER.24H PO (11:41)
[2024-04-19] VITALS (12 sets, daily range): BP systolic 92–133; BP diastolic 53–70; PULSE 84–99; RESP 14–19; TEMP 36.3–38.4; O2SAT 94–100
[2024-04-19] MEDS: HYDROmorphone HCl 0.5 MG/0.5 ML SYRINGE 0.25 MG IVPUSH ×5 (03:53→21:14)
[2024-04-19] MEDS: Lactated Ringers 1,000 ML 100 ML IVCONT (03:56)
[2024-04-19 07:39] LABS: Basophils Absolute Auto 0.1 X10*3/uL (0.0-0.2); Basophils Percent Auto 0.4 % (0-2); Eosinophils Percent Auto 0.3 % (0-4); Hematocrit 26.8 % (37.0-47.0); Imm Gran Pct Auto 0.8 % (0.0-0.4); Lymphocytes Absolute Auto 1.6 X10*3/uL (1.2-4.9); Lymphocytes Percent Auto 12.7 % (20-40); MANUAL DIFF FLAG SCAN; Mean Corpuscular HGB Conc 33.6 g/dl (31.0-35.0); Mean Corpuscular Hemoglobin 31.5 pg (27.0-33.0); Mean Corpuscular Volume 93.7 fL (80.0-98.0); Monocytes Absolute Auto 1.6 X10*3/uL (0.1-1.2); Neutrophils Absolute Auto 9.1 x10*3/uL (2.0-8.3); PLT CLUMP 1; Red Blood Count 2.86 X10*6/uL (4.20-5.50); Red Cell Distribution Width 13.3 % (11.0-16.0); SCAN SMEAR FLAG 1
--- NOTE | 2024-04-19 07:55 | PM.EVENT ---
Event Note Date of Service: 04/19/24 Event Note: Patient seen this morning Revision LT SAM to be done later today She is NPO All questions answered Time Spent With Patient Time: Total time managing care of this patient today ____ minutes.
[2024-04-19 08:12] LABS: Neutrophils Percent Auto 10.7 % (45-73); Platelet Count 199 X10*3/uL (160-400); White Blood Count 12.6 X10*3/uL (4.8-10.8)
[2024-04-19 08:13] LABS: SLIDE REVIEW VERIFIED
[2024-04-19 08:17] LABS: Anion Gap 13 (12-20); Blood Urea Nitrogen 10 mg/dL (9-16); Calcium 8.9 mg/dL (8.4-10.2); Carbon Dioxide 23 mmol/L (22-29); Chloride 105 mmol/L (96-108); Creatinine Clr Calc Pharmacy 64.2; Estimated Glomerular Filt Rate > 60; Glucose Fasting 99 mg/dL (60-99); Sodium 137 mmol/L (135-145)
[2024-04-19] MEDS: oxyCODONE HCl ER 10 MG TAB.ER.12H PO ×2 (09:24→19:47)
--- NOTE | 2024-04-19 10:29 | MHC.CM.PN ---
Patient scheduled for OR today. [facility] are following. Will need updated PT eval post op. CM will continue to follow.
--- NOTE | 2024-04-19 12:46 | PC.NURSE ---
Pt reporting pain in left left. PRN and scheduled pain medications given with moderate/good affect. Pt requesting ice packs for affected leg. Education provided to pt on appropriate use of ice pack, 15-20 mins on, followed by 15-20 mins off. Pt has purwick in place due to pain with ambulation to bedside commode, per MAKEDA Duarte and MD Donato may be toe touch weight bearing at this time. Pt aware of plan to go to OR this shift. Pt maintains NPO status for procedure.
--- NOTE | 2024-04-19 13:57 | PC.NURSE ---
Patient arrived to [facility] with one IV present. #22 right FA. Site asymptomatic, flushed well.
--- NOTE | 2024-04-19 13:58 | MHC.SHP ---
Pre-Procedural Eval Section A - 24 Hr Update-Section A only Date of Service: 04/19/24 The patient is an INPATIENT: Yes Changes since office visit: No Cold of Flu in the past 2 weeks, No New Medical Problems, No Changes in Medication and No Patient answered all questions The patient has been examined within 24 hours of the surgical procedure. The History & Physical has been completed within 30 days and I have reviewed it.: Yes Section B - Complete if H&P > 30 days Chief Complaint: LTHA Allergies: Allergies Allergy/AdvReac Type Severity Reaction Status Date / Time itraconazole [From Sporanox] Allergy Severe Facial Verified 04/19/24 13:32 Swelling, throat swelling Plan I have reviewed the history and physical and performed a pertinent physical examination on my patient. No changes have occurred unless specified. Time Spent With Patient Time: Total time managing care of this patient today ____ minutes.
--- NOTE | 2024-04-19 14:05 | PC.NURSE ---
Nose to Toes wash completed preop for SAM revision. Patient unable to turn due to increased pain. OR nurse to finish wash once in the OR.
[2024-04-19] MEDS: Lactated Ringers 1,000 ML 80 ML IVCONT (14:33)
[2024-04-19] MEDS: ceFAZolin Sodium/Dextrose,Iso 2 GM/50 ML PIGGYBACK IV ×2 (14:50→21:03)
--- NOTE | 2024-04-19 16:50 | HO.ANESPROP2 ---
HPI - Anesthesia Eval Consult details Narrative: For revision left hip replacement PMFSH Active Problems Active Problems: All Active Problems Periprosthetic fracture around internal prosthetic left hip joint (Acute) Status post total hip replacement, left (Acute) Arthritis of left hip (Chronic) Chronic SI joint pain (Acute) GERD (gastroesophageal reflux disease) (Chronic) Past Medical History Medical History Depression Anxiety Arthritis Fatty liver Osteoarthritis Back pain GERD (gastroesophageal reflux disease) History of blood transfusion (~2000) History of kidney cancer Narrative: no h/o cardiac or pulmon disease. Family History Family history of problems with anesthesia: No Surgical History Surgical History (Updated 04/19/24 @ 13:32 by Desi Jones RN) History of total left hip arthroplasty History of nephrectomy, left (~2005) History of pubovaginal sling Hx of colonoscopy Hx of tubal ligation Hx of ovarian cystectomy History of back surgery Hx of right knee surgery History of left knee surgery History of hysterectomy H/O bilateral breast biopsy Hx of appendectomy (~1966) History of Problems with Anesthesia: No Social History Social History Household Members: Significant Other Housing: House Are you a primary intensive care anaesthetist to a significant other at home: No Do you presently have visiting nurse or other home services: No Alcohol intake: never Comment: aware of trip hazard Patient Tobacco Use Status: Former Tobacco user Tobacco use type: Cigarette Smoked in Last 30 Days: No Use of substances other than those prescribed or required for medical reasons: No Currently Displaying Signs/Symptoms of Drug Intoxication Withdrawal: No Have you been hit, kicked, punched, or otherwise hurt by someone within the past year? If so, by whom?: No Do you feel safe in your current relationship?: Yes Is there a partner from a previous relationship who is making you feel unsafe now?: No Are you made to feel afraid or neglected: No Spiritual Healthcare Practices: none Yarsanism Healthcare Practices: none Cultural Healthcare Practices: none Are you DNR?: No Advance Directives: No Advance Directives Information Provided: Yes Advance Directives on File: No Do you have a plan to hurt others: No Plan Recently lost weight without trying: No Eating poorly because of decreased appetite: No Nutrition Risks: No Nutritional Risk Patient : No : No Poor oral hygiene: No service: No Meds Allergies Allergy/AdvReac Type Severity Reaction Status Date / Time itraconazole [From Sporanox] Allergy Severe Facial Verified 04/19/24 13:32 Swelling, throat swelling Active Medications: Current Medications Acetaminophen (Acetaminophen 325 Mg Tablet) 650 mg PO Q6H PRN PRN Reason: Pain, Mild (Pain Scale 1-3), fever or headache Last Admin: 04/18/24 11:58 Dose: 650 mg Bupropion HCl (Bupropion Hcl Xl 150 Mg Tab.Er.24h) 150 mg PO DAILY [facility] Last Admin: 04/19/24 08:36 Dose: Not Given Calcium Carbonate (Calcium Carbonate 750 Mg Tab.Chew) 375 mg PO BID PRN PRN Reason: Gastric Reflux Docusate Sodium (Docusate Sodium 100 Mg Capsule) 100 mg PO BID [facility] Last Admin: 04/19/24 08:36 Dose: Not Given Fluoxetine HCl (Fluoxetine Hcl 20 Mg Capsule) 40 mg PO DAILY [facility] Last Admin: 04/19/24 08:36 Dose: Not Given Hydromorphone HCl (Hydromorphone Hcl 0.5 Mg/0.5 Ml Syringe) 0.25 mg IVPUSH Q4H PRN; Protocol PRN Reason: Pain, Severe (Pain Scale 7-10) Last Admin: 04/19/24 13:00 Dose: 0.25 mg Lactated Ringer's (Lr) 1,000 mls @ 80 mls/hr IVCONT .[id number] [facility] Last Admin: 04/19/24 14:33 Dose: 80 mls/hr Sodium Chloride (Ns) 100 mls @ 100 mls/hr IV ONCE ONE Stop: 04/19/24 16:50 Naloxone HCl (Naloxone Hcl 0.4 Mg/Ml Vial) 0.04 mg IVPUSH Q5M PRN PRN Reason: Excessive sedation or RR < 8 Omeprazole (Omeprazole 20 Mg Capsule.Dr) 20 mg PO DAILY PRN PRN Reason: Gastric Reflux Ondansetron HCl (Ondansetron Hcl 4 Mg/2 Ml Vial) 4 mg IVPUSH Q8H PRN PRN Reason: Nausea and Vomiting Oxycodone HCl (Oxycodone Hcl Immed Release 5 Mg Tablet) 5 mg PO Q4H PRN PRN Reason: Pain, Moderate(Pain Scale 4-6) Last Admin: 04/18/24 11:39 Dose: 5 mg Oxycodone HCl (Oxycodone Hcl Er 10 Mg Tab.Er.12h) 10 mg PO BID [facility] Last Admin: 04/19/24 09:24 Dose: 10 mg Sodium Chloride (0.9 % Sodium Chloride Flush 3 Ml Syringe) 3 ml IVFLUSH QSHIFT [facility] Last Admin: 04/19/24 08:01 Dose: Not Given Tolterodine Tartrate (Tolterodine Tartrate La 4 Mg Cap.Er.24h) 4 mg PO DAILY [facility] Last Admin: 04/19/24 08:38 Dose: Not Given Home Medications ?Medication ?Instructions ?Recorded ?Confirmed ?Last Taken ?Type solifenacin 5 mg tablet (Vesicare) 5 mg PO DAILY 03/04/24 04/09/24 04/16/24 History bupropion HCl 150 mg tablet,12 hr 150 mg PO DAILY 04/09/24 04/17/24 04/16/24 History sustained-release calcium carbonate (Tums) 200 mg PO BID PRN Gastric Reflux 04/09/24 04/09/24 04/16/24 History fluoxetine 40 mg capsule 40 mg PO DAILY 04/09/24 04/17/24 04/17/24 History omeprazole magnesium 20 mg 20 mg PO DAILY PRN Gastric Reflux 04/09/24 04/09/24 04/17/24 History tablet,delayed release (Prilosec OTC) Exam Height,Weight and Vital Signs: Height 5 ft 6.14 in Weight 72.1 kg Last Vital Signs Temp 101.1 F H 04/19/24 13:32 Pulse 94 04/19/24 13:32 Resp 16 04/19/24 13:32 BP 131/70 04/19/24 13:32 Pulse Ox 98 04/19/24 13:32 O2 Del Method Room Air 04/19/24 13:32 O2 Flow Rate 3 04/17/24 10:58 Pertinent Lab Results Pertinent Lab Results: Laboratory Tests 04/09/24 04/09/24 04/09/24 10:57 11:15 11:17 WBC 8.1 RBC 4.29 Hgb 13.4 Hct 40.1 MCV 93.5 MCH 31.2 MCHC 33.4 RDW 13.4 Plt Count 286 MPV 9.6 Immature Gran % (Auto) Neut % (Auto) Lymph % (Auto) [place] % (Auto) Eos % (Auto) Baso % (Auto) Lymph # (Auto) [place] # (Auto) Eos # (Auto) Baso # (Auto) Abs Immat Gran (auto) Absolute Neuts (auto) Absolute Nucleated RBC 0.000 Nucleated RBC % (auto) 0.0 Smear Tech's Comments Sodium 142 Potassium 4.1 Chloride 107 Carbon Dioxide 26 Anion Gap 13 BUN 21 H Creatinine 0.92 Estim Creat Clear Calc 54.5 Estimated GFR 60 Random Glucose 104 Fasting Glucose Calcium 9.8 Nasal Screen MRSA (PCR) NEGATIVE Nasal S. aureus Screen NEGATIVE Nasal MRSA/S.aureus Interp SEE NOTE Blood Type B Negative Antibody Screen NEGATIVE Crossmatch 04/17/24 04/18/24 04/19/24 06:52 05:39 05:37 WBC 14.2 H 12.6 H RBC 3.12 L D 2.86 L Hgb 13.0 9.5 L D 9.0 L Hct 38.3 28.9 L D 26.8 L MCV 92.6 93.7 MCH 30.4 31.5 MCHC 32.9 33.6 RDW 13.3 13.3 Plt Count 224 199 MPV 9.9 10.0 Immature Gran % (Auto) 0.7 H 0.8 H Neut % (Auto) 80.1 H 10.7 L Lymph % (Auto) 7.3 L 12.7 L [place] % (Auto) 11.6 H 13.0 H Eos % (Auto) 0.0 0.3 Baso % (Auto) 0.3 0.4 Lymph # (Auto) 1.0 L 1.6 [place] # (Auto) 1.7 H 1.6 H Eos # (Auto) 0.0 0.0 Baso # (Auto) 0.0 0.1 Abs Immat Gran (auto) 0.10 H 0.10 H Absolute Neuts (auto) 11.4 H 9.1 H Absolute Nucleated RBC 0.000 0.000 Nucleated RBC % (auto) 0.0 0.0 Smear Tech's Comments VERIFIED VERIFIED Sodium 138 137 Potassium 4.7 4.0 Chloride 106 105 Carbon Dioxide 27 23 Anion Gap 10 L 13 BUN 14 10 Creatinine 0.85 0.77 Estim Creat Clear Calc 58.1 64.2 Estimated GFR > 60 > 60 Random Glucose Fasting Glucose 120 H 99 Calcium 9.0 D 8.9 Nasal Screen MRSA (PCR) Nasal S. aureus Screen Nasal MRSA/S.aureus Interp Blood Type Antibody Screen Crossmatch 04/19/24 08:52 WBC RBC Hgb Hct MCV MCH MCHC RDW Plt Count MPV Immature Gran % (Auto) Neut % (Auto) Lymph % (Auto) [place] % (Auto) Eos % (Auto) Baso % (Auto) Lymph # (Auto) [place] # (Auto) Eos # (Auto) Baso # (Auto) Abs Immat Gran (auto) Absolute Neuts (auto) Absolute Nucleated RBC Nucleated RBC % (auto) Smear Tech's Comments Sodium Potassium Chloride Carbon Dioxide Anion Gap BUN Creatinine Estim Creat Clear Calc Estimated GFR Random Glucose Fasting Glucose Calcium Nasal Screen MRSA (PCR) Nasal S. aureus Screen Nasal MRSA/S.aureus Interp Blood Type B Negative Antibody Screen NEGATIVE Crossmatch See Detail Airway Mallampati Class: II TM Dist: <=3cm Neck ROM: Full Heart: ok Lungs: ok Assessment and Plan Assessment Anesthesia Assessment: Anesthesia Plan Discussed and Chart Reviewed Final Anesthetic Review Family History of Problems with Anesthesia: No History of Problems with Anesthesia: No NPO: Yes ASA Class: III Final Preanesthetic Review: No Changes in Pt Med Stat, Meds/Allgs Chart Reviewed, Consent Obtained/Reviewed and Anes Risks/Benef Reviewed Patient Risk: Intermediate Procedure Risk: Intermediate Anesthetic Plan Anesthetic Plan: Spinal and Agree w/ Assess. and Plan Disposition: Standard PACU
--- NOTE | 2024-04-19 17:40 | PM.OP ---
Brief Operative Note Date of Service: 04/19/24 Pre-op diagnosis: Periprosthetic fracture left femur Post-op diagnosis: same Procedure: Revision arthroplasty left femur with ORIF greater trochanter Surgeon: Akhil Donato MD Anesthesia: MAC, local and spinal Was an Resident Services Manager used for this Procedure?: Yes Resident Services Manager: Christi George Estimated blood loss (mL): 500 IV fluids (mL): 1,000 Pathology: none sent Condition: stable Disposition: PACU
--- NOTE | 2024-04-19 17:44 | P.OP_ITS ---
Operative Note Operative Note Date of Service: 04/19/24 Narrative: Date of Service: 04/19/24 Pre-op diagnosis: Periprosthetic fracture left femur Post-op diagnosis: same Procedure: Revision arthroplasty left femur with ORIF greater trochanter Implants: [place] Modular jainism [id number] stem with 19+10 conical body and - 5/36 ceramic Roslainda greater trochanteric 100 mm long claw plate and 4 cerclage wires. Surgeon: Akhil Donato MD Anesthesia: MAC, local and spinal Was an Marine Design Engineer used for this Procedure?: Yes Marine Design Engineer: Christi George Estimated blood loss (mL): 500 IV fluids (mL): 1,000 Pathology: none sent Condition: stable Disposition: PACU Indications: This is a 74-year-old woman who underwent left total hip arthroplasty approximately 48 hours ago. This was uncomplicated but in the middle of the night postop day 1 she got out of bed and twisted and stepped awkwardly and heard a pop. Radiographs showed a fracture of the greater trochanter and a rotational change in her femoral alignment. She was consented to return to the operating room to undergo greater trochanteric ORIF plus/minus revision arthroplasty. Procedure in detail Patient was brought into the operating room and placed in the right lateral decubitus position. All bony prominences were well padded and the limb was prepped and draped in standard sterile fashion. A time-out was called to identify proper site procedure proper surgeon IV antibiotics and 1 g of tranexamic acid were administered. I began by making a curvilinear incision over the posterolateral aspect of the greater trochanter. Dissection was taken down through the prior incision. There was a hematoma but no unusual findings. I opened up the capsulotomy. There was a greater trochanteric fracture. I put a bone hook under the neck of the femur and as I dislocated I pulled out the entire femur. Given this instability I elected to place a modular jainism stem. I reamed aggressively to a 17 and placed 155 mm x 17 stem. I then trialed a +10 19 conical body and was satisfied with the stability and length. This was removed and I turned my attention to the greater trochanter. I selected 100 mm greater trochanteric claw plate. Two cerclage wires were passed distal to the lesser tuberosity using a cerclage Passer and hugging the bone circumferentially. I placed 2 cerclage wires through the greater trochanteric and reduced the fracture. I had an anatomic reduction and I tightened the wires proximally and distally. I was satisfied with the reduction and so I loosened up the cerclage and returned to the body. I reamed to a 19 and placed a 19+ 10 modular jainism conical body. I trialed with several heads and was most satisfied with a -5. 0 satisfied with the length and stability. My final implant was placed and the hip was reduced. In a reduced position I retightened all the cerclage wires and again was happy with the reduction. These were crimped and cut and I took the hip through range of motion. It was stable in the length was good. The reduction was anatomic. I then irrigated copiously and closed with FiberWire and the capsule and a Quill on the fascia and Vicryl 0 and 2-0 for the subQ and sherlyn on the skin. Patient was placed in a sterile dressing and placed supine on the operative table. A radiograph was obtained I was satisfied with the length and the alignment and the hardware position. Patient was then extubated and brought to recovery room in stable condition. There were no known complications.
[2024-04-19] MEDS: Acetaminophen 1,000 MG/100 ML PIGGYBACK 400 MG IV ×2 (17:57→23:26)
[2024-04-19 18:21] LABS: Hematocrit 33.8 % (37.0-47.0); Hemoglobin 11.4 g/dl (12.0-16.0); Mean Corpuscular HGB Conc 33.7 g/dl (31.0-35.0); Mean Corpuscular Hemoglobin 31.1 pg (27.0-33.0); Mean Corpuscular Volume 92.1 fL (80.0-98.0); Mean Platelet Volume 9.6 fL (9.4-12.3); Platelet Count 188 X10*3/uL (160-400); Red Blood Count 3.67 X10*6/uL (4.20-5.50); Red Cell Distribution Width 13.3 % (11.0-16.0); White Blood Count 16.8 X10*3/uL (4.8-10.8)
[2024-04-19 18:22] LABS: Anion Gap 11 (12-20); Blood Urea Nitrogen 8 mg/dL (9-16); Calcium 8.5 mg/dL (8.4-10.2); Carbon Dioxide 25 mmol/L (22-29); Chloride 105 mmol/L (96-108); Creatinine Clr Calc Pharmacy 63.3; Estimated Glomerular Filt Rate > 60; Glucose Random 102 mg/dL (60-115); Potassium 3.7 mmol/L (3.3-5.1); Sodium 137 mmol/L (135-145)
--- NOTE | 2024-04-19 19:17 | PC.NURSE ---
Pt received 2 units of blood in OR. Per PACU nurse Shonda CORDERO cannot be completed as Anesthesiologist charts blood transfusions on paper. MAKEDA Lomax texted at 19:21 to clarify any restrictions on pt, per PA patient can be TTWB.
[2024-04-19] MEDS: Docusate Sodium 100 MG CAPSULE PO (19:46)
[2024-04-19] MEDS: oxyCODONE HCl Immed Release 5 MG TABLET 10 MG PO (23:28)
[2024-04-20] VITALS (14 sets, daily range): BP systolic 91–119; BP diastolic 54–65; PULSE 86–105; RESP 16–20; TEMP 36.6–37.2; O2SAT 93–96
[2024-04-20] MEDS: Lactated Ringers 1,000 ML 80 ML IVCONT ×2 (03:18→17:20)
[2024-04-20] MEDS: oxyCODONE HCl Immed Release 5 MG TABLET 10 MG PO ×3 (03:42→17:26)
[2024-04-20] MEDS: ceFAZolin Sodium/Dextrose,Iso 2 GM/50 ML PIGGYBACK IV ×3 (04:41→23:59)
[2024-04-20] MEDS: Acetaminophen 1,000 MG/100 ML PIGGYBACK 400 MG IV ×3 (05:11→17:19)
[2024-04-20 06:33] LABS: MANUAL DIFF FLAG NO
[2024-04-20 06:59] LABS: Anion Gap 12 (12-20); Blood Urea Nitrogen 9 mg/dL (9-16); Calcium 8.1 mg/dL (8.4-10.2); Carbon Dioxide 23 mmol/L (22-29); Chloride 104 mmol/L (96-108); Estimated Glomerular Filt Rate > 60; Glucose Fasting 122 mg/dL (60-99); Potassium 3.8 mmol/L (3.3-5.1); Sodium 135 mmol/L (135-145)
[2024-04-20 07:03] LABS: Basophils Percent Auto 0.3 % (0-2); Eosinophils Absolute Auto 0.1 X10*3/uL (0.0-0.4); Eosinophils Percent Auto 0.7 % (0-4); Hematocrit 26.2 % (37.0-47.0); Hemoglobin 8.7 g/dl (12.0-16.0); Imm Gran Abs Auto 0.11 X10*3/uL (0.00-0.03); Imm Gran Pct Auto 0.9 % (0.0-0.4); Lymphocytes Absolute Auto 1.5 X10*3/uL (1.2-4.9); Lymphocytes Percent Auto 12.1 % (20-40); Mean Corpuscular HGB Conc 33.2 g/dl (31.0-35.0); Mean Corpuscular Hemoglobin 30.7 pg (27.0-33.0); Mean Corpuscular Volume 92.6 fL (80.0-98.0); Mean Platelet Volume 10.3 fL (9.4-12.3); Monocytes Absolute Auto 1.4 X10*3/uL (0.1-1.2); Monocytes Percent Auto 11.1 % (2-11); Neutrophils Absolute Auto 9.3 x10*3/uL (2.0-8.3); Neutrophils Percent Auto 74.9 % (45-73); Platelet Count 158 X10*3/uL (160-400); Red Blood Count 2.83 X10*6/uL (4.20-5.50); Red Cell Distribution Width 13.3 % (11.0-16.0); White Blood Count 12.4 X10*3/uL (4.8-10.8)
[2024-04-20] MEDS: oxyCODONE HCl ER 10 MG TAB.ER.12H PO ×2 (09:02→20:22)
[2024-04-20] MEDS: FLUoxetine HCl 20 MG CAPSULE 40 MG PO (09:02)
[2024-04-20] MEDS: Docusate Sodium 100 MG CAPSULE PO ×2 (09:02→20:21)
[2024-04-20] MEDS: Tolterodine Tartrate LA 4 MG CAP.ER.24H PO (09:02)
[2024-04-20] MEDS: buPROPion HCl XL 150 MG TAB.ER.24H PO (09:03)
--- NOTE | 2024-04-20 10:05 | PM.PNORT ---
Subjective Subjective Date of Service: 04/20/24 Interval history: POD1 s/p revision arthroplasty left femur with ORIF greater trochanter Patient is resting in bed - reports pain Overnight the patient reported uncontrolled pain - Adjustmenets made, continues to struggle with pain management No additional complaints Physical Exam Vital Signs: Vital Signs: Last Vital Signs Temp 98.4 F 04/20/24 07:57 Pulse 87 04/20/24 08:06 Resp 18 04/20/24 07:57 BP 106/58 L 04/20/24 08:06 Pulse Ox 94 04/20/24 07:57 O2 Del Method Room Air 04/20/24 07:57 O2 Flow Rate 3 04/17/24 10:58 BMI result Body Mass Index 25.5 Const: General: cooperative, healthy appearing and no acute distress Resp: Effort & Inspection: normal respiratory effort and able to speak in complete sentences Cardio: Rate: regular rate Peripheral pulses: Peripheral pulses 2+ throughout GI: Palpation (GI): Soft to palpation Skin: Lesions: no lesions Rashes: no rashes Extrem: Other: left hip dressing is c/d/i. Able to dorsi/plantar flex. Calf is supple and nontender. Sensation intact. Pedal pulse intact. Procedures Date of Service Date of Service: 04/20/24 Progress Note: A&P Assessment and plan (1) Periprosthetic fracture around internal prosthetic left hip joint: Status: Acute (2) Status post total hip replacement, left: Status: Acute Plan Continue pain mgmnt H&H 8.7/26.2 - 2 units of pRBC's ordered, was transfused 2 units during surgery as well Continue to monitor H&H Continue dvt ppx Continue PT/OT for revision arthroplasty left femur with ORIF greater trochanter - TTWB LLE Dispo planning-Pending new PT eval, pain mgmnt continue to be a struggle, monitor and adjustments as needed. Overnight Oxycodone increased to 10mg, Dilaudid frequency increased and added IV tylenol Time Spent With Patient Time: Total time managing care of this patient today ____ minutes. Quality Stroke Does the patient have a stroke diagnosis?: No VTE Prior VTE?: No VTE Risk Level:: Surgical - very high VTE Device Contraindication: N/A - Device Ordered VTE Drug Contraindication: Treatment Not Indicated (Revision tomorrow)
[2024-04-20] MEDS: HYDROmorphone HCl 0.5 MG/0.5 ML SYRINGE 0.25 MG IVPUSH ×2 (11:57→22:45)
--- NOTE | 2024-04-20 16:19 | HO.POSTANES ---
Post Anesthesia Evaluation Post Anesthesia Evaluation Date of Service: 04/20/24 Vital Signs: Vital Signs Temp Pulse Resp BP Pulse Ox O2 Del Method 04/20/24 16:00 97.9 F 87 20 109/56 L 04/20/24 15:32 97.9 F 87 20 109/56 L 96 Room Air 04/20/24 12:25 98.8 F 100 16 104/56 L 04/20/24 12:05 98.5 F 105 H 18 113/56 L 04/20/24 11:58 98.5 F 105 H 18 113/56 L 96 Room Air 04/20/24 08:06 87 106/58 L 04/20/24 07:57 98.4 F 90 18 91/54 L 94 Room Air Anesthesia: Spinal Mental Status: Awake Pain Control: Satisfactory (pain is still an issue) Nausea/Vomiting: None Hydration: Adequate Anesthesia-Related Issues: No Anes. Related Issues
[2024-04-21] MEDS: oxyCODONE HCl Immed Release 5 MG TABLET 10 MG PO ×4 (02:37→18:32)
[2024-04-21 02:57] VITALS: BP 148/71; PULSE 91; RESP 16; TEMP 37; O2SAT 96
[2024-04-21] MEDS: HYDROmorphone HCl 0.5 MG/0.5 ML SYRINGE 0.25 MG IVPUSH ×3 (04:38→16:06)
[2024-04-21] MEDS: Lactated Ringers 1,000 ML 80 ML IVCONT (05:57)
[2024-04-21 06:24] LABS: MANUAL DIFF FLAG NO
[2024-04-21 06:46] LABS: Anion Gap 12 (12-20); Blood Urea Nitrogen 8 mg/dL (9-16); Calcium 8.8 mg/dL (8.4-10.2); Carbon Dioxide 23 mmol/L (22-29); Chloride 108 mmol/L (96-108); Estimated Glomerular Filt Rate > 60; Glucose Fasting 93 mg/dL (60-99); Potassium 3.8 mmol/L (3.3-5.1); Sodium 139 mmol/L (135-145)
[2024-04-21 06:56] LABS: Basophils Absolute Auto 0.1 X10*3/uL (0.0-0.2); Basophils Percent Auto 0.4 % (0-2); Eosinophils Absolute Auto 0.2 X10*3/uL (0.0-0.4); Eosinophils Percent Auto 1.7 % (0-4); Hematocrit 32.6 % (37.0-47.0); Hemoglobin 10.9 g/dl (12.0-16.0); Imm Gran Abs Auto 0.13 X10*3/uL (0.00-0.03); Imm Gran Pct Auto 1.1 % (0.0-0.4); Lymphocytes Absolute Auto 1.3 X10*3/uL (1.2-4.9); Lymphocytes Percent Auto 10.2 % (20-40); Mean Corpuscular HGB Conc 33.4 g/dl (31.0-35.0); Mean Corpuscular Volume 89.8 fL (80.0-98.0); Mean Platelet Volume 10.5 fL (9.4-12.3); Monocytes Absolute Auto 1.3 X10*3/uL (0.1-1.2); Monocytes Percent Auto 10.9 % (2-11); Neutrophils Absolute Auto 9.3 x10*3/uL (2.0-8.3); Neutrophils Percent Auto 75.7 % (45-73); Platelet Count 164 X10*3/uL (160-400); Red Blood Count 3.63 X10*6/uL (4.20-5.50); Red Cell Distribution Width 14.3 % (11.0-16.0); White Blood Count 12.2 X10*3/uL (4.8-10.8)
[2024-04-21 07:54] VITALS: BP 138/70; PULSE 97; RESP 18; TEMP 37.2; O2SAT 95
[2024-04-21] MEDS: ceFAZolin Sodium/Dextrose,Iso 2 GM/50 ML PIGGYBACK IV ×3 (08:42→23:40)
[2024-04-21] MEDS: oxyCODONE HCl ER 10 MG TAB.ER.12H PO ×2 (08:42→20:24)
[2024-04-21] MEDS: buPROPion HCl XL 150 MG TAB.ER.24H PO (08:43)
[2024-04-21] MEDS: FLUoxetine HCl 20 MG CAPSULE 40 MG PO (08:43)
[2024-04-21] MEDS: Tolterodine Tartrate LA 4 MG CAP.ER.24H PO (08:43)
[2024-04-21] MEDS: Docusate Sodium 100 MG CAPSULE PO ×2 (08:43→20:24)
[2024-04-21] MEDS: Acetaminophen 325 MG TABLET 650 MG PO (09:30)
--- NOTE | 2024-04-21 09:31 | PC.NURSE ---
PRN 650mg Tylenol given for 6/10 pain at pt request.
--- NOTE | 2024-04-21 09:31 | PM.PNORT ---
Subjective Subjective Date of Service: 04/21/24 Interval history: POD2 s/p revision arthroplasty left femur with ORIF greater trochanter Patient is resting in bed - reports pain Worked with P.T./O.T. yesterday to get into the recliner - Pain No additional complaints Physical Exam Vital Signs: Vital Signs: Last Vital Signs Temp 99.0 F 04/21/24 07:54 Pulse 97 04/21/24 07:54 Resp 18 04/21/24 07:54 BP 138/70 04/21/24 07:54 Pulse Ox 95 04/21/24 07:54 O2 Del Method Room Air 04/21/24 07:54 O2 Flow Rate 3 04/17/24 10:58 BMI result Body Mass Index 25.5 Const: General: cooperative, healthy appearing and no acute distress Resp: Effort & Inspection: normal respiratory effort and able to speak in complete sentences Cardio: Rate: regular rate Peripheral pulses: Peripheral pulses 2+ throughout GI: Palpation (GI): Soft to palpation Skin: Lesions: no lesions Rashes: no rashes Extrem: Other: left hip dressing is reinforced - c/d/i. Able to dorsi/plantar flex. Calf is supple and nontender. Sensation intact. Pedal pulse intact. Procedures Date of Service Date of Service: 04/21/24 Progress Note: A&P Assessment and plan (1) Periprosthetic fracture around internal prosthetic left hip joint: Status: Acute (2) Status post total hip replacement, left: Status: Acute Plan Continue pain mgmnt H&H improved today after 2 units pRBC's transfused yesterday 10.9/32.6 Continue to monitor H&H Continue dvt ppx Continue PT/OT for revision arthroplasty left femur with ORIF greater trochanter - TTWB LLE Dispo planning-PT, pain mgmnt. Time Spent With Patient Time: Total time managing care of this patient today ____ minutes. Quality Stroke Does the patient have a stroke diagnosis?: No VTE Prior VTE?: No VTE Risk Level:: Surgical - very high VTE Device Contraindication: N/A - Device Ordered VTE Drug Contraindication: Treatment Not Indicated (Revision tomorrow)
[2024-04-21 11:34] VITALS: BP 133/64; PULSE 95; RESP 20; TEMP 36.8; O2SAT 96
[2024-04-21 15:37] VITALS: BP 116/69; PULSE 89; RESP 16; TEMP 36.8; O2SAT 96
[2024-04-21 19:39] VITALS: BP 116/66; PULSE 77; RESP 17; TEMP 36.5; O2SAT 96
[2024-04-21 23:39] VITALS: BP 106/56; PULSE 87; RESP 16; TEMP 36.6; O2SAT 94
[2024-04-22 03:40] VITALS: BP 104/57; PULSE 86; RESP 16; TEMP 36.6; O2SAT 96
[2024-04-22] MEDS: HYDROmorphone HCl 0.5 MG/0.5 ML SYRINGE 0.25 MG IVPUSH ×5 (05:38→23:21)
[2024-04-22 06:16] LABS: MANUAL DIFF FLAG NO
[2024-04-22 06:21] LABS: Basophils Absolute Auto 0.1 X10*3/uL (0.0-0.2); Basophils Percent Auto 0.6 % (0-2); Eosinophils Absolute Auto 0.4 X10*3/uL (0.0-0.4); Eosinophils Percent Auto 3.6 % (0-4); Hematocrit 33.2 % (37.0-47.0); Hemoglobin 10.9 g/dl (12.0-16.0); Imm Gran Abs Auto 0.19 X10*3/uL (0.00-0.03); Imm Gran Pct Auto 1.7 % (0.0-0.4); Lymphocytes Absolute Auto 1.8 X10*3/uL (1.2-4.9); Lymphocytes Percent Auto 16.4 % (20-40); Mean Corpuscular HGB Conc 32.8 g/dl (31.0-35.0); Mean Corpuscular Hemoglobin 30.1 pg (27.0-33.0); Mean Corpuscular Volume 91.7 fL (80.0-98.0); Mean Platelet Volume 9.5 fL (9.4-12.3); Monocytes Absolute Auto 1.3 X10*3/uL (0.1-1.2); Monocytes Percent Auto 11.4 % (2-11); Neutrophils Absolute Auto 7.3 x10*3/uL (2.0-8.3); Neutrophils Percent Auto 66.3 % (45-73); Platelet Count 225 X10*3/uL (160-400); Red Blood Count 3.62 X10*6/uL (4.20-5.50); Red Cell Distribution Width 14.1 % (11.0-16.0)
[2024-04-22 07:01] LABS: Anion Gap 12 (12-20); Blood Urea Nitrogen 9 mg/dL (9-16); Calcium 9.2 mg/dL (8.4-10.2); Carbon Dioxide 28 mmol/L (22-29); Chloride 104 mmol/L (96-108); Creatinine Clr Calc Pharmacy 62.6; Estimated Glomerular Filt Rate > 60; Glucose Fasting 91 mg/dL (60-99); Potassium 4.3 mmol/L (3.3-5.1); Sodium 140 mmol/L (135-145)
[2024-04-22 07:36] VITALS: BP 120/70; PULSE 84; RESP 18; TEMP 36.1; O2SAT 94
--- NOTE | 2024-04-22 07:37 | PM.PNORT ---
Subjective Subjective Date of Service: 04/22/24 Interval history: POD3 s/p revision arthroplasty left femur with ORIF greater troch Patient is resting in bed - reports pain Worked with P.T./O.T. yesterday to get into the recliner - Pain No additional complaints Physical Exam Vital Signs: Vital Signs: Last Vital Signs Temp 97 F 04/22/24 07:36 Pulse 84 04/22/24 07:36 Resp 18 04/22/24 07:36 BP 120/70 04/22/24 07:36 Pulse Ox 94 04/22/24 07:36 O2 Del Method Room Air 04/22/24 07:36 O2 Flow Rate 3 04/17/24 10:58 BMI result Body Mass Index 25.5 Const: General: cooperative, healthy appearing and no acute distress Resp: Effort & Inspection: normal respiratory effort and able to speak in complete sentences Cardio: Rate: regular rate Peripheral pulses: Peripheral pulses 2+ throughout GI: Palpation (GI): Soft to palpation Skin: Lesions: no lesions Rashes: no rashes Extrem: Other: left hip dressing taken down and replaced with new Aquacel dressing. [place] intact. No surrounding erythema or drainage. Able to dorsi/plantar flex. Calf is supple and nontender. Sensation intact. Pedal pulse intact. Procedures Date of Service Date of Service: 04/22/24 Progress Note: A&P Assessment and plan (1) Periprosthetic fracture around internal prosthetic left hip joint: Status: Acute (2) Status post total hip replacement, left: Status: Acute Plan Continue pain mgmnt Continue dvt ppx Continue PT/OT for revision arthroplasty left femur with ORIF greater trochanter - TTWB LLE Dispo planning-PT, pain mgmnt., rehab placement - Cleared for d/c from orthopedic perspective Time Spent With Patient Time: Total time managing care of this patient today ____ minutes. Quality Stroke Does the patient have a stroke diagnosis?: No VTE Prior VTE?: No VTE Risk Level:: Surgical - very high VTE Device Contraindication: N/A - Device Ordered VTE Drug Contraindication: Treatment Not Indicated (Revision tomorrow)
[2024-04-22] MEDS: oxyCODONE HCl Immed Release 5 MG TABLET 10 MG PO ×3 (07:40→15:55)
[2024-04-22] MEDS: Docusate Sodium 100 MG CAPSULE PO ×2 (07:40→19:57)
[2024-04-22] MEDS: FLUoxetine HCl 20 MG CAPSULE 40 MG PO (07:40)
[2024-04-22] MEDS: buPROPion HCl XL 150 MG TAB.ER.24H PO (07:40)
[2024-04-22] MEDS: Tolterodine Tartrate LA 4 MG CAP.ER.24H PO (07:41)
[2024-04-22] MEDS: oxyCODONE HCl ER 10 MG TAB.ER.12H PO (07:41)
[2024-04-22] MEDS: ceFAZolin Sodium/Dextrose,Iso 2 GM/50 ML PIGGYBACK IV ×3 (07:41→23:22)
--- NOTE | 2024-04-22 07:42 | PM.DS ---
DS: Providers Provider Date of Service: 04/22/24 Date of admission: 04/17/24 06:31 Primary care physician: Billy Floyd MD Consults: 04/17/24 11:18 Consult to Hospitalist Routine Comment: Consulting Provider: Hospitalist Reason For Exam: Medical management - one kidney DS: Diagnosis Discharge Diagnosis (1) Periprosthetic fracture around internal prosthetic left hip joint: Status: Acute (2) Status post total hip replacement, left: Status: Acute DS: Summary Hospital Course Hospital Course: The patient underwent a successful left total hip arthroplasty, they were transferred to PACU and then to the floor to recover. Post operative x-rays were obtained and revealed good alignment and positioning of SAM. POD0 evening the patient was ambulating to the bathroom and felt a snap and increased pain in the left hip. X-rays were obtained and she was found to have a new periprosthetic hip fracture. The patient was brought back to the operating room for revision left total hip arthroplasty with ORIF of the greater trochanter. Intraoperatively the patient was transfused 2 units of pRBC's. The following day POD1 he H&H was still low at 8.7/26.2. She was transfused 2 units of pRBC's as well. Her vitals are stable, afebrile at 97.0. Labs on discharge are stable H/H 10.9/33.2. POD 1 they were started on Aspirin 325mg po bid for DVT ppx, they also received Physical Therapy services twice a day. Prior to discharge, their dressing was changed, incision clean dry and intact, new Aquacel dressing applied and the plan was to be discharged to rehab for additional physical therapy and occupational therapy. TTWB left lower extremity with a walker Time Attestation Discharge Coordination Time (in mins): 30 Quality: Safe Use of Opioids Does Pt have an Active Cancer Diagnosis on the Problem List?: No Quality: Stroke Does the patient have a stroke diagnosis?: No Physical Exam Vital Signs: Vital Signs: Last Vital Signs Temp 97 F 04/22/24 07:36 Pulse 84 04/22/24 07:36 Resp 18 04/22/24 07:36 BP 120/70 04/22/24 07:36 Pulse Ox 94 04/22/24 07:36 O2 Del Method Room Air 04/22/24 07:36 O2 Flow Rate 3 04/17/24 10:58 BMI result Body Mass Index 25.5 Const: General: cooperative, healthy appearing and no acute distress Resp: Effort & Inspection: normal respiratory effort and able to speak in complete sentences Cardio: Rate: regular rate Peripheral pulses: Peripheral pulses 2+ throughout GI: Palpation (GI): Soft to palpation Skin: Lesions: no lesions Rashes: no rashes Extrem: Other: left hip dressing taken down and replaced with new Aquacel dressing. [place] intact. No surrounding erythema or drainage. Able to dorsi/plantar flex. Calf is supple and nontender. Sensation intact. Pedal pulse intact. DS: Data Data Completed and Pending Completed studies during hospitalization [Text1]: Pending at discharge 04/17/24 09:16 Surgical [PTH] Routine Labs on day of discharge: Laboratory Results - last 24 hr 04/19/24 04/22/24 08:52 05:28 WBC 11.0 H RBC 3.62 L Hgb 10.9 L Hct 33.2 L MCV 91.7 MCH 30.1 MCHC 32.8 RDW 14.1 Plt Count 225 D MPV 9.5 Immature Gran % (Auto) 1.7 H Neut % (Auto) 66.3 Lymph % (Auto) 16.4 L [place] % (Auto) 11.4 H Eos % (Auto) 3.6 Baso % (Auto) 0.6 Lymph # (Auto) 1.8 [place] # (Auto) 1.3 H Eos # (Auto) 0.4 Baso # (Auto) 0.1 Abs Immat Gran (auto) 0.19 H Absolute Neuts (auto) 7.3 Absolute Nucleated RBC 0.000 Nucleated RBC % (auto) 0.0 Sodium 140 Potassium 4.3 Chloride 104 Carbon Dioxide 28 Anion Gap 12 BUN 9 Creatinine 0.79 Estim Creat Clear Calc 62.6 Estimated GFR > 60 Fasting Glucose 91 Calcium 9.2 Blood Type B Negative Antibody Screen NEGATIVE Crossmatch See Detail Discharge Plan Discharge Anticipated Discharge Date/Time: 04/22/24 12:00 Patient Disposition: Xfer SNF Discharge Diagnosis: s/p left total hip arthroplasty with ORIF greater trochanter Referrals: Billy Floyd MD [Primary Care Provider] - 1 Week Discharge Medications: New acetaminophen 325 mg Tablet 650 mg PO Q6H PRN (Reason: Pain, Mild (Pain Scale 1-3), fever or headache) 30 Days Qty: 240 0RF oxycodone 10 mg tablet 10 mg PO Q4H PRN (Reason: Pain, Moderate(Pain Scale 4-6)) 7 Days Qty: 42 0RF Rx Instructions: Partial Fill upon patient request. docusate sodium 100 mg Capsule 100 mg PO BID 30 Days Qty: 60 0RF Continued (DME) walker Misc See Rx Instructions .ROUTE .MEDSUPPLY Qty: 1 0RF Rx Instructions: Folding front wheeled walker fluoxetine 40 mg Capsule 40 mg PO DAILY bupropion HCl 150 mg Tablet Sustained-Release 12 Hr 150 mg PO DAILY calcium carbonate [Tums] 200 mg calcium (500 mg) Tablet,Chewable 200 mg PO BID PRN (Reason: Gastric Reflux) omeprazole magnesium [Prilosec OTC] 20 mg Tablet,Delayed Release (Dr/Ec) 20 mg PO DAILY PRN (Reason: Gastric Reflux) solifenacin [Vesicare] 5 mg tablet 5 mg PO DAILY Discharge Orders: Discharge Order (Routine); Ordered 04/22/24 Ordered By: Christi George Diet: Advance to usual diet Activity on Discharge: Use cane or walker Stand Alone Forms: Patient Portal Discharge page Print Language: Croatian Care Plan Goals: restore fxn to left hip Health Concerns: Avoid NSAIDs Plan of Treatment: Physical Therapy for total hip arthroplasty: posterior precautions, gait training, ROM, strength TTWB WITH WALKER LLE Limit stair climbing No showering, no tub bath-keep dressing clean, dry and intact No driving x6 weeks Continue Aspirin x 6 weeks for DVT ppx Follow up with [facility] Orth[facility]ics in 2 weeks Assessment: stable for d/c
--- NOTE | 2024-04-22 09:24 | MHC.CM.PN ---
Addendum entered by Rasheeda Guzman RN 04/22/24 09:44: Per ortho, dc cancelled. Plan to dc tomorrow. Patient, RN and facility aware. Original Note: Per ortho, patient cleared for dc to acute rehab. Patient accepted a bed at [facility]. BLS transport scheduled for 12pm. RN, patient and ortho aware. IMM delivered.
[2024-04-22] MEDS: Calcium Carbonate 750 MG TAB.CHEW 375 MG PO (11:47)
[2024-04-22 12:25] VITALS: BP 126/66; PULSE 97; RESP 18; TEMP 36.3; O2SAT 98
[2024-04-22] MEDS: Acetaminophen 325 MG TABLET 650 MG PO ×2 (15:55→23:21)
[2024-04-22 16:00] VITALS: BP 130/69; PULSE 99; RESP 18; TEMP 36.3; O2SAT 97
[2024-04-22 19:23] VITALS: BP 105/59; PULSE 93; RESP 16; TEMP 36.7; O2SAT 96
[2024-04-22 23:31] VITALS: BP 125/60; PULSE 84; RESP 16; TEMP 36.4; O2SAT 97
[2024-04-23 03:20] VITALS: BP 119/58; PULSE 91; RESP 16; TEMP 36.2; O2SAT 99
[2024-04-23] MEDS: HYDROmorphone HCl 0.5 MG/0.5 ML SYRINGE 0.25 MG IVPUSH ×6 (03:31→22:24)
[2024-04-23] MEDS: oxyCODONE HCl Immed Release 5 MG TABLET 10 MG PO ×5 (05:33→23:53)
[2024-04-23 07:45] VITALS: BP 115/64; PULSE 86; RESP 18; TEMP 36.1; O2SAT 97
[2024-04-23] MEDS: Docusate Sodium 100 MG CAPSULE PO ×2 (08:32→20:02)
[2024-04-23] MEDS: ceFAZolin Sodium/Dextrose,Iso 2 GM/50 ML PIGGYBACK IV ×3 (08:32→23:54)
[2024-04-23] MEDS: buPROPion HCl XL 150 MG TAB.ER.24H PO (08:32)
[2024-04-23] MEDS: Tolterodine Tartrate LA 4 MG CAP.ER.24H PO (08:32)
[2024-04-23] MEDS: FLUoxetine HCl 20 MG CAPSULE 40 MG PO (08:32)
[2024-04-23 08:55] LABS: MANUAL DIFF FLAG NO
[2024-04-23 08:58] LABS: Basophils Absolute Auto 0.1 X10*3/uL (0.0-0.2); Basophils Percent Auto 0.7 % (0-2); Eosinophils Absolute Auto 0.4 X10*3/uL (0.0-0.4); Eosinophils Percent Auto 3.9 % (0-4); Hematocrit 32.3 % (37.0-47.0); Hemoglobin 10.8 g/dl (12.0-16.0); Lymphocytes Absolute Auto 1.2 X10*3/uL (1.2-4.9); Lymphocytes Percent Auto 12.5 % (20-40); Mean Corpuscular HGB Conc 33.4 g/dl (31.0-35.0); Mean Corpuscular Hemoglobin 30.5 pg (27.0-33.0); Mean Corpuscular Volume 91.2 fL (80.0-98.0); Mean Platelet Volume 9.6 fL (9.4-12.3); Monocytes Absolute Auto 0.9 X10*3/uL (0.1-1.2); Monocytes Percent Auto 9.5 % (2-11); Neutrophils Percent Auto 70.4 % (45-73); Platelet Count 261 X10*3/uL (160-400); Red Blood Count 3.54 X10*6/uL (4.20-5.50); White Blood Count 9.9 X10*3/uL (4.8-10.8)
--- NOTE | 2024-04-23 09:12 | P.DS_ITS ---
DS: Providers Provider Date of Service: 04/23/24 Date of admission: 04/17/24 06:31 Primary care physician: Billy Floyd MD Consults: 04/17/24 11:18 Consult to Hospitalist Routine Comment: Consulting Provider: Hospitalist Reason For Exam: Medical management - one kidney DS: Diagnosis Discharge Diagnosis (1) Periprosthetic fracture around internal prosthetic left hip joint: Status: Acute (2) Status post total hip replacement, left: Status: Acute DS: Summary Hospital Course Hospital Course: The patient underwent a successful left total hip arthroplasty, they were transferred to PACU and then to the floor to recover. Post operative x-rays were obtained and revealed good alignment and positioning of SAM. POD0 evening the patient was ambulating to the bathroom and felt a snap and increased pain in the left hip. X-rays were obtained and she was found to have a new periprosthetic hip fracture. The patient was brought back to the operating room for revision left total hip arthroplasty with ORIF of the greater trochanter. Intraoperatively the patient was transfused 2 units of pRBC's. The following day POD1 he H&H was still low at 8.7/26.2. She was transfused 2 units of pRBC's as well. Her vitals are stable, afebrile at 97.0. Labs on discharge are stable H/H 10.9/33.2. POD 1 they were started on Aspirin 325mg po bid for DVT ppx, they a lso received Physical Therapy services twice a day. Prior to discharge, their dressing was changed, incision clean dry and intact, new Aquacel dressing applied and the plan was to be discharged to rehab for additional physical therapy and occupational therapy. TTWB left lower extremity with a walker Time Attestation Discharge Coordination Time (in mins): 30 Quality: Safe Use of Opioids Does Pt have an Active Cancer Diagnosis on the Problem List?: No Quality: Stroke Does the patient have a stroke diagnosis?: No Physical Exam Vital Signs: Vital Signs: Last Vital Signs Temp 97.0 F 04/23/24 07:45 Pulse 86 04/23/24 07:45 Resp 18 04/23/24 07:45 BP 115/64 04/23/24 07:45 Pulse Ox 97 04/23/24 07:45 O2 Del Method Room Air 04/23/24 07:45 O2 Flow Rate 3 04/17/24 10:58 BMI result Body Mass Index 25.5 Extrem: Other: left hip dressing is c/d/i. Able to dorsi/plantar flex. Calf is supple and nontender. Sensation intact. Pedal pulse intact. DS: Data Data Completed and Pending Completed studies during hospitalization [Text1]: Pending at discharge 04/17/24 09:16 Surgical [PTH] Routine Labs on day of discharge: Laboratory Results - last 24 hr 04/23/24 08:14 WBC 9.9 RBC 3.54 L Hgb 10.8 L Hct 32.3 L MCV 91.2 MCH 30.5 MCHC 33.4 RDW 14.0 Plt Count 261 MPV 9.6 Immature Gran % (Auto) 3.0 H Neut % (Auto) 70.4 Lymph % (Auto) 12.5 L [place] % (Auto) 9.5 Eos % (Auto) 3.9 Baso % (Auto) 0.7 Lymph # (Auto) 1.2 [place] # (Auto) 0.9 Eos # (Auto) 0.4 Baso # (Auto) 0.1 Abs Immat Gran (auto) 0.30 H Absolute Neuts (auto) 7.0 Absolute Nucleated RBC 0.000 Nucleated RBC % (auto) 0.0 Discharge Plan Discharge Anticipated Discharge Date/Time: 04/22/24 12:00 Patient Disposition: Xfer [facility] Discharge Diagnosis: s/p left total hip arthroplasty with ORIF greater trochanter Referrals: [facility] [Outside] - 1 Week Billy Floyd MD [Primary Care Provider] - 1 Week Discharge Medications: New acetaminophen 325 mg Tablet 650 mg PO Q6H PRN (Reason: Pain, Mild (Pain Scale 1-3), fever or headache) 30 Days Qty: 240 0RF oxycodone 10 mg tablet 10 mg PO Q4H PRN (Reason: Pain, Moderate(Pain Scale 4-6)) 7 Days Qty: 42 0RF Rx Instructions: Partial Fill upon patient request. docusate sodium 100 mg Capsule 100 mg PO BID 30 Days Qty: 60 0RF Continued (DME) walker Misc See Rx Instructions .ROUTE .MEDSUPPLY Qty: 1 0RF Rx Instructions: Folding front wheeled walker fluoxetine 40 mg Capsule 40 mg PO DAILY bupropion HCl 150 mg Tablet Sustained-Release 12 Hr 150 mg PO DAILY calcium carbonate [Tums] 200 mg calcium (500 mg) Tablet,Chewable 200 mg PO BID PRN (Reason: Gastric Reflux) omeprazole magnesium [Prilosec OTC] 20 mg Tablet,Delayed Release (Dr/Ec) 20 mg PO DAILY PRN (Reason: Gastric Reflux) solifenacin [Vesicare] 5 mg tablet 5 mg PO DAILY Discharge Orders: Discharge Order (Routine); Ordered 04/23/24 Ordered By: Christi George Diet: Advance to usual diet Activity on Discharge: Use cane or walker Stand Alone Forms: Patient Portal Discharge page Print Language: Macedonian Care Plan Goals: restore fxn to left hip Health Concerns: Avoid NSAIDs Plan of Treatment: Physical Therapy for total hip arthroplasty: posterior precautions, gait training, ROM, strength TTWB WITH WALKER LLE Limit stair climbing No showering, no tub bath-keep dressing clean, dry and intact No driving x6 weeks Continue Aspirin x 6 weeks for DVT ppx Follow up with [facility] Orthopedics in 2 weeks Assessment: stable for d/c
--- NOTE | 2024-04-23 09:28 | MHC.CM.PN ---
Discharge to [facility] is cancelled today. Patient to work with PT and OT again today. Fabian and Rafy have been notified of the cancelled discharge today.
[2024-04-23 11:14] VITALS: BP 121/68; PULSE 89; RESP 18; TEMP 36.7; O2SAT 95
--- NOTE | 2024-04-23 13:18 | PM.PNORT ---
Subjective Subjective Date of Service: 04/23/24 Interval history: POD4 s/p revision arthroplasty left femur with ORIF greater troch Patient is resting in bed - reports pain Worked with P.T./O.T. yesterday to get into the recliner - Pain , continues to have limitations with activity No additional complaints Physical Exam Vital Signs: Vital Signs: Last Vital Signs Temp 98.1 F 04/23/24 11:14 Pulse 89 04/23/24 11:14 Resp 18 04/23/24 11:14 BP 121/68 04/23/24 11:14 Pulse Ox 95 04/23/24 11:14 O2 Del Method Room Air 04/23/24 11:14 O2 Flow Rate 3 04/17/24 10:58 BMI result Body Mass Index 25.5 Extrem: Other: left hip dressing is c/d/i. Able to dorsi/plantar flex. Calf is supple and nontender. Sensation intact. Pedal pulse intact. Procedures Date of Service Date of Service: 04/23/24 Progress Note: A&P Assessment and plan (1) Periprosthetic fracture around internal prosthetic left hip joint: Status: Acute (2) Status post total hip replacement, left: Status: Acute Plan Continue pain mgmnt Continue dvt ppx Continue PT/OT for revision arthroplasty left femur with ORIF greater trochanter - TTWB LLE Dispo planning-continued PT, pain mgmnt., rehab placement - Time Spent With Patient Time: Total time managing care of this patient today ____ minutes. Quality Stroke Does the patient have a stroke diagnosis?: No VTE Prior VTE?: No VTE Risk Level:: Surgical - very high VTE Device Contraindication: N/A - Device Ordered VTE Drug Contraindication: Treatment Not Indicated (Revision tomorrow)
[2024-04-23] MEDS: methocarbamoL 750 MG TABLET PO ×2 (14:14→20:02)
[2024-04-23 15:45] VITALS: BP 122/68; PULSE 100; RESP 18; TEMP 37.3; O2SAT 96
[2024-04-23 19:10] VITALS: BP 117/57; PULSE 99; RESP 14; TEMP 37.4; O2SAT 95
[2024-04-23 22:55] VITALS: BP 132/66; PULSE 90; RESP 16; TEMP 37.1; O2SAT 96
[2024-04-24] MEDS: HYDROmorphone HCl 0.5 MG/0.5 ML SYRINGE 0.25 MG IVPUSH (02:51)
[2024-04-24 02:57] VITALS: BP 130/70; PULSE 92; RESP 16; TEMP 36.8; O2SAT 94
[2024-04-24] MEDS: ceFAZolin Sodium/Dextrose,Iso 2 GM/50 ML PIGGYBACK IV (07:15)
[2024-04-24] MEDS: oxyCODONE HCl Immed Release 5 MG TABLET 10 MG PO (07:25)
[2024-04-24] MEDS: FLUoxetine HCl 20 MG CAPSULE 40 MG PO (07:26)
[2024-04-24] MEDS: buPROPion HCl XL 150 MG TAB.ER.24H PO (07:26)
[2024-04-24] MEDS: Docusate Sodium 100 MG CAPSULE PO (07:26)
[2024-04-24] MEDS: methocarbamoL 750 MG TABLET PO (07:26)
[2024-04-24] MEDS: Tolterodine Tartrate LA 4 MG CAP.ER.24H PO (07:26)
--- NOTE | 2024-04-24 07:39 | PM.DS ---
DS: Providers Provider Date of Service: 04/24/24 Date of admission: 04/17/24 06:31 Primary care physician: Billy Floyd MD Consults: 04/17/24 11:18 Consult to Hospitalist Routine Comment: Consulting Provider: Hospitalist Reason For Exam: Medical management - one kidney DS: Diagnosis Discharge Diagnosis (1) Periprosthetic fracture around internal prosthetic left hip joint: Status: Acute (2) Status post total hip replacement, left: Status: Acute DS: Summary Hospital Course Hospital Course: The patient underwent a successful left total hip arthroplasty, they were transferred to PACU and then to the floor to recover. Post operative x-rays were obtained and revealed good alignment and positioning of SAM. POD0 evening the patient was ambulating to the bathroom and felt a snap and increased pain in the left hip. X-rays were obtained and she was found to have a new periprosthetic hip fracture. The patient was brought back to the operating room for revision left total hip arthroplasty with ORIF of the greater trochanter. Intraoperatively the patient was transfused 2 units of pRBC's. The following day POD1 he H&H was still low at 8.7/26.2. She was transfused 2 units of pRBC's as well. Her vitals are stable, afebrile at 98.3. Labs on discharge are stable H/H 10.8/32.3. POD 1 they were started on Aspirin 325mg po bid for DVT ppx, they also received Physical Therapy services twice a day. Prior to discharge, their dressing was changed, incision clean dry and intact, new Aquacel dressing applied and the plan was to be discharged to rehab for additional physical therapy and occupational therapy. TTWB left lower extremity with a walker Time Attestation Discharge Coordination Time (in mins): 30 Quality: Safe Use of Opioids Does Pt have an Active Cancer Diagnosis on the Problem List?: No Quality: Stroke Does the patient have a stroke diagnosis?: No Physical Exam Vital Signs: Vital Signs: Last Vital Signs Temp 98.3 F 04/24/24 02:57 Pulse 92 04/24/24 02:57 Resp 16 04/24/24 02:57 BP 130/70 04/24/24 02:57 Pulse Ox 94 04/24/24 02:57 O2 Del Method Room Air 04/24/24 02:57 O2 Flow Rate 3 04/17/24 10:58 BMI result Body Mass Index 25.5 Extrem: Other: left hip dressing is c/d/i. Able to dorsi/plantar flex. Calf is supple and nontender. Sensation intact. Pedal pulse intact. DS: Data Data Completed and Pending Completed studies during hospitalization [Text1]: Pending at discharge 04/17/24 09:16 Surgical [PTH] Routine Labs on day of discharge: Laboratory Results - last 24 hr 04/23/24 08:14 WBC 9.9 RBC 3.54 L Hgb 10.8 L Hct 32.3 L MCV 91.2 MCH 30.5 MCHC 33.4 RDW 14.0 Plt Count 261 MPV 9.6 Immature Gran % (Auto) 3.0 H Neut % (Auto) 70.4 Lymph % (Auto) 12.5 L [place] % (Auto) 9.5 Eos % (Auto) 3.9 Baso % (Auto) 0.7 Lymph # (Auto) 1.2 [place] # (Auto) 0.9 Eos # (Auto) 0.4 Baso # (Auto) 0.1 Abs Immat Gran (auto) 0.30 H Absolute Neuts (auto) 7.0 Absolute Nucleated RBC 0.000 Nucleated RBC % (auto) 0.0 Discharge Plan Discharge Anticipated Discharge Date/Time: 04/22/24 12:00 Patient Disposition: Xfer [facility] Discharge Diagnosis: s/p left total hip arthroplasty with ORIF greater trochanter Referrals: [facility] [Outside] - 1 Week Christi George PA-C [Physician Power Shear Operator] - 2 Weeks (05/02/24 14:15 [facility] Christi George PA-C) Discharge Medications: New acetaminophen 325 mg Tablet 650 mg PO Q6H PRN (Reason: Pain, Mild (Pain Scale 1-3), fever or headache) 30 Days Qty: 240 0RF oxycodone 10 mg tablet 10 mg PO Q4H PRN (Reason: Pain, Moderate(Pain Scale 4-6)) 7 Days Qty: 42 0RF Rx Instructions: Partial Fill upon patient request. docusate sodium 100 mg Capsule 100 mg PO BID 30 Days Qty: 60 0RF Continued (KORY) pao [place] See Rx Instructions .ROUTE .MEDSUPPLY Qty: 1 0RF Rx Instructions: Folding front wheeled walker fluoxetine 40 mg Capsule 40 mg PO DAILY bupropion HCl 150 mg Tablet Sustained-Release 12 Hr 150 mg PO DAILY calcium carbonate [Tums] 200 mg calcium (500 mg) Tablet,Chewable 200 mg PO BID PRN (Reason: Gastric Reflux) omeprazole magnesium [Prilosec OTC] 20 mg Tablet,Delayed Release (Dr/Ec) 20 mg PO DAILY PRN (Reason: Gastric Reflux) solifenacin [Vesicare] 5 mg tablet 5 mg PO DAILY Discharge Orders: Discharge Order (Routine); Ordered 04/24/24 Ordered By: Christi George Diet: Advance to usual diet Activity on Discharge: Use cane or walker Stand Alone Forms: Patient Portal Discharge page Print Language: Hebrew Care Plan Goals: restore fxn to left hip Health Concerns: Avoid NSAIDs Plan of Treatment: Physical Therapy for total hip arthroplasty: posterior precautions, gait training, ROM, strength TTWB WITH WALKER LLE Limit stair climbing No showering, no tub bath-keep dressing clean, dry and intact No driving x6 weeks Continue Aspirin x 6 weeks for DVT ppx Follow up with [facility] Orthopedics in 2 weeks Assessment: stable for d/c Discharge Date/Time: 04/24/24 11:30
[2024-04-24 08:00] VITALS: BP 134/72; PULSE 92; RESP 18; TEMP 36.4; O2SAT 96
[2024-04-24] MEDS: Aspirin 325 MG TABLET PO (08:21)
--- NOTE | 2024-04-24 10:23 | MHC.CM.PN ---
Patient is discharged today. [facility] @ 11:30am via BLS.
[2024-04-24 11:25] VITALS: BP 136/63; PULSE 95; RESP 18; TEMP 36.2; O2SAT 98
--- NOTE | 2024-05-20 13:11 | P.CDIM_ITS ---
PROVIDER RESPONSE TEXT: To clarify, the appropriate diagnosis supported by the clinical indicators: Periprosthetic fracture left hip: Tramuatic QUERY TEXT: PHYSICIAN'S DOCUMENTATION REQUEST Date of Query: 05/03/2024 09:53 AM EDT Patient Name: Courtney De Santiago Admit Date: 04/17/2024 Dear Akhil Donato MD, RETROSPECTIVE QUERY A review of the medical record indicates additional documentation may be needed. Please review below and update the documentation accordingly. Documentation in the record indicates the patient was admitted with a fracture. Clinical Indicators: Op note dated 04/19/24 - Total left hip arthroplasty performed. Hospital course documentation: This was uncomplicated but in the middle of the night postop day 1 she got out of bed and twisted and stepped awkwardly and heard a pop. Radiographs showed a fracture of the greater trochanter and a rotational change in her femoral alignm ent. X-ray - New periprosthetic hip fracture. Patient brought to the operating room for revision left tota l hip arthroplasty with ORIF of the greater trochanter. Please provide the following additional clarification regarding further specifics to the documented h ip fracture: Periprosthetic fracture left hip Traumatic, Pathologic, Mechanical or other Other (explain) Clinically unable to determine (explain) Thank you, Ana Maria Ferro, CCS, CDIS Use of terms such as suspected, likely, concern for, or probable (associated with a specific diagnosi s that is being evaluated, monitored, or treated as if it exists) are acceptable and can be coded in the inpatient se tting, when documented at the time of discharge. Please use your independent medical judgment in providing your response. THIS QUERY IS PART OF THE PERMANENT MEDICAL RECORD
== END 2024-04-24 11:30 | disposition skilled nursing facility (03) | DRG 467 ==
LOC: HO.SSSA 06:33 → HO.S3 10:20
PROVIDERS: Anesthesiology; Nurse Practitioner; Physician Assistant; Admitting Provider Orthopaedic Surgery; PCP Internal Medicine; Visit Provider Orthopaedic Surgery
PROC: 0SRB03A Replacement of Left Hip Joint with Ceramic Synthetic Substitute, Uncemented, Open Approach (ICD-10-PCS; CPT 27130; principal; 2024-04-17 08:40)
PROC: 0SPS0JZ Removal of Synthetic Substitute from Left Hip Joint, Femoral Surface, Open Approach (ICD-10-PCS; principal; 2024-04-19 15:00)
DX: M16.12 Unilateral primary osteoarthritis, left hip (principal); M97.02XA Periprosthetic fracture around internal prosthetic left hip joint, initial encounter; S72.112A Displaced fracture of greater trochanter of left femur, initial encounter for closed fracture; X58.XXXA Exposure to other specified factors, initial encounter; K21.9 Gastro-esophageal reflux disease without esophagitis; F39 Unspecified mood [affective] disorder; Z85.528 Personal history of other malignant neoplasm of kidney; Z90.5 Acquired absence of kidney; Z87.891 Personal history of nicotine dependence; Z79.899 Other long term (current) drug therapy
CPT/HCPCS: 36415; 72170; 73502; 80048; 85014; 85018; 85025; 85027; 86850; 86900; 86901; 86923; 87640; 87641; 88304; 88311; 97110; 97116; 97161; 97163; 97166; 97167; 97530; 97535; C1713; C1776; J0131; J0690; J1100; J1170; J2250; J2371; J2405; J2704; J2795; J3010; J7120; P9016

== ENCOUNTER → 2024-04-17 06:31 | Outpatient (BNV) | payer MEDICARE, SELFPAY | PROVIDERS: Admitting Provider Orthopaedic Surgery; PCP Internal Medicine; Visit Provider Physician Assistant | DX: K21.9 Gastro-esophageal reflux disease without esophagitis (principal); M16.12 Unilateral primary osteoarthritis, left hip; Z85.528 Personal history of other malignant neoplasm of kidney; Z96.642 Presence of left artificial hip joint | CPT/HCPCS: 99221 ==

== ENCOUNTER → 2024-04-17 06:31 | Outpatient (BNV) | payer MEDICARE, SELFPAY | PROVIDERS: Admitting Provider Orthopaedic Surgery; PCP Internal Medicine; Visit Provider Orthopaedic Surgery | DX: M97.02XA Periprosthetic fracture around internal prosthetic left hip joint, initial encounter (principal); Z96.642 Presence of left artificial hip joint | CPT/HCPCS: 27130; 27138; 27248; 99024; 99499 ==

== ENCOUNTER 2024-05-02 14:13 | Outpatient (REF) | payer MEDICARE, SELFPAY ==
--- NOTE | ~2024-05-02 | XR_ITS ---
EXAMINATION: XR PELVIS 2 VIEWS CLINICAL INFORMATION: Periprosthetic fracture around internal prosthetic left hip joint M97.02XA. COMPARISON: XR Pelvis 04/19/2024. TECHNIQUE: AP views of the pelvis. FINDINGS: Redemonstration of a left hip arthroplasty with a lateral femoral stabilization plate and cerclage wires in unchanged anatomic alignment. No hardware fracture or perihardware lucency to suggest loosening or infection. Redemonstration of a proximal left femoral fracture in near-anatomic alignment. No significant new bone/callus formation. No concerning lytic or blastic osseous lesion. Mild right hip osteoarthritis, unchanged. Phleboliths and surgical clips within the pelvis. Partially visualized lower lumbar spine orthopedic hardware. XR/XR pelvis 1-2V IMPRESSION: Left hip arthroplasty and left femoral ORIF without evidence of complication. Proximal left femoral fracture in near-anatomic alignment without significant new bone/callus formation. Electronically signed by: Alireza Thacker MD 07/03/2024 12:12 PM JOSE RAUL
== END 2024-05-02 14:14 | disposition home or self-care (01) ==
LOC: HO.HOSX 14:13
PROVIDERS: Visit Provider Physician Assistant
DX: M97.02XA Periprosthetic fracture around internal prosthetic left hip joint, initial encounter (principal); Z96.642 Presence of left artificial hip joint
CPT/HCPCS: 72170; 99212

== ENCOUNTER 2024-05-02 14:24 | Outpatient (AMB) | payer MEDICARE, SELFPAY ==
--- NOTE | 2024-05-02 14:27 | A.OFFVIS_ITS ---
Intake Visit Reasons: 2WK PO: L SAM w/NE 04/17/24 Intake Note: Courtney is a 74 year old male who presents to the office today for a 2WK PO: L SAM w/NE 04/17/24. Pt states her pain is controlled with the tylenol and oxycodone. Pt states she has PT 3x a day at her facility which she states is very helpful. Allergies itraconazole [From Sporanox] Allergy (Severe, Verified 05/02/24 14:28) Facial Swelling, throat swelling HPI HPI 2WK PO: L SAM w/NE 04/17/24: Details: 74-year-old female who presents in the office today 2 weeks status post left total hip arthroplasty, which was performed on 04/17/[address] Donato. The patient underwent a revision arthroplasty of the left femur with ORIF greater trochanter which was performed on 04/19/[address] Donato. While in the office today, the patient reports her left hip pain is managed with Tylenol and oxycodone. She is attending physical therapy three times a week at her facility with benefit. She remains TTWB with a walker. Overall she is doing quite well. [facility] Medical History (Updated 05/02/24 @ 00:04 by Background Daemon) Arthritis of left hip Depression Anxiety Arthritis Fatty liver Osteoarthritis Back pain GERD (gastroesophageal reflux disease) History of blood transfusion (~2000) History of kidney cancer Surgical History (Updated 05/02/24 @ 00:04 by Background Daemon) History of total left hip arthroplasty History of nephrectomy, left (~2005) History of pubovaginal sling Hx of colonoscopy Hx of tubal ligation Hx of ovarian cystectomy History of back surgery Hx of right knee surgery History of left knee surgery History of hysterectomy H/O bilateral breast biopsy Hx of appendectomy (~1966) Social History Household Members: Significant Other Housing: House Are you a primary senior resident care director to a significant other at home: No Do you presently have visiting nurse or other home services: No 75 years or older and lives alone: No Alcohol intake: never Comment: aware of trip hazard Patient Tobacco Use Status: Former Tobacco user Tobacco use type: Cigarette service: No Review of Systems Const All systems reviewed & are unremarkable except as noted in HPI and below Physical Exam Extrem Other: Left hip incision site is c/d/i. [place] intact. No surrounding erythema, edema or drainage. Able to dorsi/plantar flex. NVI. Assessment & Plan Assessment & Plan (1) Status post total hip replacement, left: Code(s): Z96.642 - Presence of left artificial hip joint Category: Surgical Plan 74-year-old female who presents in the office today 2 weeks status post left total hip arthroplasty, which was performed on 04/17/[address] Donato. The patient underwent a revision arthroplasty of the left femur with ORIF greater t rochanter which was performed on 04/19/[address] Donato. While in the office today, the patient reports her left hip pain is managed with Tylenol and oxycodone. She is attending physical therapy three times a week at her facility with benefit. She remains TTWB with a walker. Overall she is doing quite well. While in the office today her catina were removed, steri-strips applied. She will remain TTWB for a total of 6 weeks post op. She will continue to work with physical therapy. She will f/u in 4 weeks with x-rays with Dr. Donato, sooner if needed. Orders: Orders XR pelvis 1-2V 05/02/24 M97.02XA - Periprosthetic fracture around internal prosthetic left hip joint, initial encounter Patient Instructions: Scribed by Yane Valencia medical equipment repair technician, for Christi George PA-C on 05/02/24 at 2:43 pm EST. Coding Level of Care Code Global (31802) Diagnoses Status post total hip replacement, left Z96.642
== END 2024-05-02 15:07 | disposition home or self-care (01) ==
PROVIDERS: PCP Internal Medicine; Visit Provider Physician Assistant
DX: Z96.642 Presence of left artificial hip joint (principal)
CPT/HCPCS: 99024

== ENCOUNTER 2024-06-03 12:04 | Outpatient (REF) | payer MEDICARE, SELFPAY ==
--- NOTE | ~2024-06-03 | XR_ITS ---
EXAMINATION: XR PELVIS CLINICAL INFORMATION: M25.559 - Pain in unspecified hip. COMPARISON: Most recent pelvic radiograph dated 05/02/2024. TECHNIQUE: AP views of the pelvis. FINDINGS: Redemonstration of a left hip arthroplasty with a lateral femoral stabilization plate and cerclage wires. No hardware fracture. Persistent fracture line within the proximal femur which appears more prominent when compared to the prior examination and could indicate nonunion. Mild new bone/callus formation along the medial aspect of the most distal cerclage wires. There is mild increased prominence in lucency adjacent to the proximal femoral component measuring 4.6 cm in craniocaudal dimension. Findings could represent the postsurgical result versus stress shielding. Early loosening could be considered, however, is thought less likely. Mild right hip osteoarthritis, unchanged. No concerning lytic or blastic osseous lesion. Surgical clips and phleboliths redemonstrated within the pelvis. XR/XR pelvis 1-2V IMPRESSION: 1. Left hip arthroplasty with a lateral femoral stabilization plate and cerclage wires. Persistent fracture line within the proximal femur which appears more prominent when compared to the prior examination and could indicate nonunion. Mild new bone/callus formation along the medial aspect of the most distal cerclage wires. 2. Mild increased prominence in lucency adjacent to the proximal femoral component measuring 4.6 cm in craniocaudal dimension. Findings could represent a postsurgical result versus stress shielding. Electronically signed by: Alireza Thacker MD 07/03/2024 12:12 PM [facility] [place] Workstation: [id number]
== END 2024-06-03 12:05 | disposition home or self-care (01) ==
LOC: HO.HOSX 12:04
PROVIDERS: Visit Provider Orthopaedic Surgery
DX: M25.559 Pain in unspecified hip (principal); M97.02XA Periprosthetic fracture around internal prosthetic left hip joint, initial encounter
CPT/HCPCS: 72170; 99212

== ENCOUNTER 2024-06-03 13:15 | Outpatient (AMB) | payer MEDICARE, SELFPAY ==
--- NOTE | 2024-06-03 13:28 | A.OFFVIS_ITS ---
Intake Visit Reasons: PO - L SAM Revision 04/19/24 Intake Note: Courtney is a 74 year old male who presents to the office today for a post operative appointment s/p L SAM w/NE 04/17/24. As per Alicias note, the patients was instructed to remain Toe Touch Weight Bearing at her last visit . She currently is in a wheelchair and states that she was not able to begin toe touch weight bearing. Her pain is tolerable as she is taking Oxycodone and Tylenol. She is looking to be able to start walking. Allergies itraconazole [From Sporanox] Allergy (Severe, Verified 06/03/24 13:29) Facial Swelling, throat swelling HPI HPI PO - L SAM Revision 04/19/24: Details: Courtney is a 74 year old male who presents to the office today for a post operative appointment s/p L SAM w/NE 04/17/24. She has no pain and but has not been weight-bearing yet. Her pain is tolerable as she is taking Oxycodone and Tylenol. She is looking to be able to start walking. [facility] Medical History (Updated 05/02/24 @ 00:04 by Background Daemon) Arthritis of left hip Depression Anxiety Arthritis Fatty liver Osteoarthritis Back pain GERD (gastroesophageal reflux disease) History of blood transfusion (~2000) History of kidney cancer Surgical History (Updated 05/02/24 @ 00:04 by Background Daemon) History of total left hip arthroplasty History of nephrectomy, left (~2005) History of pubovaginal sling Hx of colonoscopy Hx of tubal ligation Hx of ovarian cystectomy History of back surgery Hx of right knee surgery History of left knee surgery History of hysterectomy H/O bilateral breast biopsy Hx of appendectomy (~1966) Social History Household Members: Significant Other Housing: House Are you a primary home health care physician to a significant other at home: No Do you presently have visiting nurse or other home services: No 75 years or older and lives alone: No Alcohol intake: never Comment: aware of trip hazard Patient Tobacco Use Status: Former Tobacco user Tobacco use type: Cigarette service: No Physical Exam Extrem Other: No pain with hip range of motion. Incision clean dry and intact. 2+ dorsalis pedis pulse Results Reviewed Results Reviewed: I personally reviewed relevant radiographs. Left hip revision with trochanteric plate in unchanged alignment from prior. No hardware complications. Assessment & Plan Assessment & Plan (1) Periprosthetic fracture around internal prosthetic left hip joint: Code(s): M97.02XA - Periprosthetic fracture around internal prosthetic left hip joint, initial encounter Category: Medical Plan: Courtney is 6 weeks status post revision left hip arthroplasty. She may begin weight-bearing as tolerated with a walker. I wrote a prescription for physical therapy. Follow up 6 weeks. Orders: Orders PT Evaluation and Treatment Today M97.02XA - Periprosthetic fracture around internal prosthetic left hip joint, initial encounter XR pelvis 1-2V Today M25.559 - Pain in unspecified hip Coding Level of Care Code Global (38629) Diagnoses Periprosthetic fracture around internal prosthetic left hip joint M97.02XA
== END 2024-06-03 13:50 | disposition home or self-care (01) ==
PROVIDERS: PCP Internal Medicine; Visit Provider Orthopaedic Surgery
DX: M97.02XA Periprosthetic fracture around internal prosthetic left hip joint, initial encounter (principal)
CPT/HCPCS: 99024

== ENCOUNTER 2024-06-18 08:00 | Outpatient (REF) | payer MEDICARE, SELFPAY | END 2024-06-18 08:01 | disposition home or self-care (01) | LOC: HO.HOSX 08:00 | PROVIDERS: Visit Provider Physician Assistant | DX: Z13.89 Encounter for screening for other disorder (principal) ==

== ENCOUNTER 2024-07-29 08:41 | Outpatient (REF) | payer MEDICARE, SELFPAY ==
--- NOTE | ~2024-07-29 | XR_ITS ---
EXAMINATION: XR HIP, LEFT CLINICAL INFORMATION: M25.552 - Pain in left hip COMPARISON: Correlated to pelvis x-rays same day and pelvis x-ray dated June 03, 2024 TECHNIQUE: Proximal lateral oblique view of the left hip. FINDINGS: There is loosening in the intertrochanteric region of the metallic prosthesis. There is a old cortical irregularity/disruption of the proximal diaphysis, left femur. Status post total left hip arthroplasty, cerclage and femoral stabilization plate. XR/XR hip LT 1V IMPRESSION: Persistent loosening and probable old nonhealing fracture, intertrochanteric region/proximal diaphysis, left femur Electronically signed by: Dennis Mccray MD 08/01/2024 08:05 AM JOSE RAUL KELLY
--- NOTE | ~2024-07-29 | XR_ITS ---
EXAMINATION: XR PELVIS CLINICAL INFORMATION: M25.559 - Pain in unspecified hip COMPARISON: X-ray dated June 03, 2024. TECHNIQUE: AP view of the pelvis. FINDINGS: Excluded to the iliac crests, bilaterally. Metallic left hip arthroplasty prosthesis with an acetabular and femoral component well-seated in the osseous structures. Status post cerclage in the intertrochanteric region of the left femur and status post metallic anchor in the greater trochanter to the proximal diaphysis of the left femur. There is loosening in the intertrochanteric region of the metallic prosthesis. No gross malalignment. Osteopenia versus osteoporosis. Right hip is intact with normal alignment. Multiple vascular clips overlapping the lower pelvis. XR/XR pelvis 1-2V IMPRESSION: Status post left hip arthroplasty cerclage and lateral femoral stabilization plate with persistent loosening in the intertrochanteric region. Electronically signed by: Dennis Mccray MD 08/01/2024 08:03 AM JOSE RAUL
--- OUTSIDE RECORDS SUMMARY | 2024-07-29 09:05 | XMS_ITS | Continuity of Care Document ---
Author Organization [facility] Address [address] [place] [address] Phone Care Team Providers Care Blood Tester Name Role Phone Van KAY, RVT, RPVI, David Unavailable U navailable Allergies, Adverse Reactions, Alerts Substance Reaction Status Criticality itraconazole Active No Information Medications Medication Instructions Dosage Effective Dates (start - stop) Status Comments Eliquis 5 mg tablet 2 tablets twice a da y for 1 week, the take 1 tablet twice a day - Active Wellbutrin XL 150 mg 24 hr tablet, extended release - Active Vesicare 5 mg tablet - Active Procedures Procedure Date Office/Oupt E&M New Pt 30 Mins- CT & [place] Duplex Scan-extrem Veins; Uni/ CT & [place] J Advance Directives Directive Yes / No Effective Date File Name Other Directive No 07/26/2024 N/A WARNING:The information contained in this section is historical and is provided for information only and does not constitute a legal document or any assurance that the information is still accurate. Please verify the information with the mary of the legal document before using it for clinical purposes. Encounters Encounter Description Practice Location Reason(s) For Visit Diagnoses Date Provider Providers Copied on Encounter Office/Oupt E&M New Pt 30 Mins- CT & [place] [facility], [address] [place] [address] [address], [id number], [place] tel:[phone] [facility] Chronic venous hypertension (idiopathic) without complications of left lower extremityPostth rombotic syndrome with other complications of left lower extremityLymphe hattie, not elsewhere classifiedHered itary lymphedema 5 Van KAY, KOBI, RUKHSANA Hernandez. [address], [address], [place], [id number] , [place]. tel:[phone] [facility], [address], [place], [id number], [place] tel:[phone] [facility] [place] [facility] [place] Pain in left leg 5 Van KAY, KOBI, RUKHSANA Hernandez. [address], [address], [place], [id number] , [place]. [phone] Referring Provider: David Araujo MD, KOBI, RUKHSANA, [address], [place], [address] . tel:[phone] Family History Family Member Type Diagnosis Age At Onset No Information Payers Payer name Insurance type Covered republican ID Authoriza tion(s) Medicare SUZY JOY [id number] [facility] AARP Supplement CI [id number] Social History Type Description Quantity Date Captured Comments Alcohol Use Details Unknown Caffeine Use Details Unknown Tobacco Use Status No Information Smoking Status Former Smoker Non-Smoking Tobacco Use Details : No Details Available : No Details Available Sex Female Vital Signs Date / Time: Height Weight BMI Pulse Rate Blood Pressure Temperature Respiratory Rate Body Surface Area Head Circumference Head Circ. Percentile Wt./Ever. Percentile BMI percentile Pulse Ox Inhaled Ox 72.570 kg (160.00 lbs) 25.9 0 kg/m eter (2) 132/76 mm[Hg] Chief Complaint And Reason For Visit No Information Reason For Referral Reason For Referral No Information Plan Of Treatment Date Type Action Status Goal Diet education completed Goal Tobacco cessation counseling completed Referral Ordered: Weight management: Referral to physician timeframe: 3 Months (related to Body mass index (BMI) 25.0-25.9, adult) ordered Appointment Cuortney De SantiagoED Appointment Courtney De Santiago BOOKED History Of Present Illness Encounter Date Complaint History Of Prese nt Illness No Information Functional Status Date Functional Assessmen t No Information Instructions Date Instruction Additional Infor kezia Patient education booklet given Related to Chronic venous hypertension (idiopathic) without complications of left lower extremity Diet education Related to Body mass index (BMI) 25.0-25.9, adult Giving Encouragement to exercise Related to Body mass index (BMI) 25.0-25.9, adult Lifestyle education Related to B verónica mass index (BMI) 25.0-25.9, adult Compression stocking usage as conservative measure Related to Chronic venous hypertension (idiopathic) without complications of left lower extremity Assessments Type Assessment Date No Information Patient Care Teams Name Effective Dates (start - stop) Status Members No Information
--- OUTSIDE RECORDS SUMMARY | 2024-07-29 09:05 | XMS_ITS ---
Author Name [facility] Organization Unknown History of Medication Use Medication Directions Dispensed Refills Start Date End Date [facility] bupropion HCl 300 mg oral tablet extended release 24 hr 07/09/2022 completed Vesicare 5 mg oral tablet 07/09/2022 completed prednisone 10 mg oral tablet 07/09/2022 completed cyclobenzaprine 10 mg oral tablet take 1 tablet (10 mg) by oral route 2 times per day 07/09/2022 completed oxycodone 5 mg oral tablet take 1 tablet (5 mg) by oral route every 4-6 hours as needed 07/09/2022 completed alendronate 70 mg oral tablet 07/09/2022 completed Neurontin 100 mg oral capsule take 1 capsule (100 mg) by oral route 3 times per day 07/09/2022 completed zolpidem 5 mg oral tablet 07/09/2022 completed sulfamethoxazole-trim ethoprim 800-160 mg oral tablet 07/09/2022 completed fluoxetine 20 mg oral capsule 07/09/2022 completed gabapentin 100 mg oral capsule 07/09/2022 completed Vesicare 10 mg oral tablet 07/09/2022 completed omeprazole 20 mg oral capsule,delayed release(/EC) 07/09/2022 completed
--- OUTSIDE RECORDS SUMMARY | 2024-07-29 09:05 | XMS_ITS | Clinical Summary ---
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, ESTRADA Unavailable Unav ailable Payers Payer Name Policy Type Policy Number Effective Date Expira tion Date MEDICARE.NGS.PDGM [id number] Problems Condition Name Condition Details Condition Category Status Onset Date Resolution Date Last Treatment Date Treating Clinician Comments PATHOLOGICAL FRACTURE, LEFT FEMUR, SUBS FOR FX W ROUTN HEAL Active 2023-07 00:00: 00 PERIPROSTH FRACTURE AROUND INTERNAL PROSTH L HIP JT, SUBS Active 2023-07 00:00: 00 DEPRESSION, UNSPECIFIED Active 07-24 00:00: 00 ANXIETY DISORDER, UNSPECIFIED Active 07-24 00:00: 00 OVERACTIVE BLADDER Active 07-24 00:00: 00 ANEMIA, UNSPECIFIED Active 07-24 00:00: 00 PRESENCE OF LEFT ARTIFICIAL HIP JOINT Active 04-17 00:00: 00 RETIREMENT (CURRENT) USE OF ASPIRIN Active 2023-07 00:00: 00 ARTHRODESIS STATUS Active 07-24 00:00: 00 Allergies, Adverse Reactions, Alerts Allergy Name Allergy Type Status Severity Reaction(s) Onset Date Inactive Date Treating Clinician Comments ITRACONAZOLE Propensity to adverse reactions Active 03-19 11:15: 36 Medications Ordered Medication Name Filled Medication Name Start Date Stop Date Current Medication? Ordering Clinician Indication Dosage Frequency Signature (SIG) Comments Components aspirin 325 mg tablet 2023-07 00:00: 00 Yes [id number] NSAID 325 mg 2 TIMES DAILY 325 mg 2 TIMES DAILY (route: oral) Med Classific ation: Analgesic , Anti-infl ammatory or Antipyret ic oxycodone 5 mg capsule 2023-07 00:00: 00 Yes [id number] PAIN 5 mg EVERY 6 HOURS 5 mg EVERY 6 HOURS (route: oral) Med Classific ation: Analgesic , Anti-infl ammatory or Antipyret ic Prozac 40 mg capsule 2023-07 00:00: 00 Yes [id number] DEPRESSION 40 mg DAILY 40 mg DAILY (route: oral) Med Classific ation: Central Nervous System Agents Tylenol 325 mg capsule 2023-07 00:00: 00 Yes [id number] PAIN MED 975 mg 3 TIMES DAILY 975 mg 3 TIMES DAILY (route: oral) Med Classific ation: Analgesic , Anti-infl ammatory or Antipyret ic Vesicare 10 mg tablet 2023-07 00:00: 00 Yes [id number] OVERACTIVE BLADDER 5 mg DAILY 5 mg DAILY (route: oral) Med Classific ation: Genitouri nary Therapy Wellbutrin XL 150 mg 24 hr tablet, extended release 2023-07 00:00: 00 Yes [id number] DEPRESSION 150 mg DAILY 150 mg DAILY (route: oral) Med Classific ation: Central Nervous System Agents Calcium 600 + D(3) 600 mg-10 mcg (400 unit) tablet 2023-07 00:00: 00 Yes [id number] SUPPLEMENT 1 tablet 2 TIMES DAILY 1 tablet 2 TIMES DAILY (route: oral) Med Classific ation: Electroly te Balance-N utritiona l Products Immunizations Ordered Immunization Name Filled Immunization Name Date Status Comments Refusal Reason INFLUENZA, TIV (INACTIVATED) 2023-06-21 00:00:00 BOOSTER -COVID-19 VACCINE, COVID-19 VACCINE 2021-11-10 00:00:00 DOSE #2, COVID-19 VACCINE 2020-10-26 00:00:00 DOSE #1, COVID-19 VACCINE 2020-10-06 00:00:00 SHINGLES, TIV (INACTIVATED) 2020-04-30 00:00:00 PNEUMOCOCCAL (PPV), PPV 2018-08-30 00:00:00 Vital Signs Vital Name Observation Time Observation Value Commen ts Temperature 2024-06-10 09:11:00.000 97.6 [degF] Temperature 2024-06-04 12:15:00.000 97.7 [degF] Temperature 2024-05-29 09:30:00.000 97.6 [degF] Temperature 2024-05-27 09:02:00.000 97.6 [degF] Temperature 2024-05-21 13:17:00.000 97.2 [degF] Temperature 2024-05-20 09:36:00.000 97.8 [degF] Temperature 2024-05-17 11:32:00.000 97.2 [degF] Temperature 2024-05-16 09:14:00.000 98.6 [degF] Temperature 2024-05-13 10:01:00.000 98 [degF] Temperature 2024-05-09 09:48:00.000 98.1 [degF] Temperature 2024-05-07 12:36:00.000 97 [degF] Temperature 2024-05-06 09:38:00.000 98.5 [degF] Temperature 2024-05-05 11:12:00.000 100.4 [degF] BMI (%) 2024-05-05 11:12:00.000 25 kg/m2 Height 2024-05-05 11:12:00.000 66 [in_us] Pulse 2024-06-10 09:11:00.000 80 /min Pulse 2024-06-04 12:15:00.000 87 /min Pulse 2024-05-29 09:30:00.000 72 /min Pulse 2024-05-27 09:02:00.000 82 /min Pulse 2024-05-21 13:17:00.000 74 /min Pulse 2024-05-20 09:36:00.000 88 /min Pulse 2024-05-17 11:32:00.000 82 /min Pulse 2024-05-16 09:14:00.000 89 /min Pulse 2024-05-13 10:01:00.000 92 /min Pulse 2024-05-09 09:48:00.000 98 /min Pulse 2024-05-07 12:36:00.000 95 /min Pulse 2024-05-06 09:38:00.000 82 /min Pulse 2024-05-05 11:12:00.000 84 /min O2 Saturation (%) 2024-06-10 09:12:00.000 97 % O2 Saturation (%) 2024-06-04 12:15:00.000 95 % O2 Saturation (%) 2024-05-29 09:30:00.000 99 % O2 Saturation (%) 2024-05-27 09:03:00.000 97 % O2 Saturation (%) 2024-05-21 13:18:00.000 97 % O2 Saturation (%) 2024-05-17 11:32:00.000 96 % O2 Saturation (%) 2024-05-16 09:14:00.000 97 % O2 Saturation (%) 2024-05-09 09:48:00.000 95 % O2 Saturation (%) 2024-05-07 12:36:00.000 96 % O2 Saturation (%) 2024-05-06 09:40:00.000 97 % O2 Saturation (%) 2024-05-05 11:12:00.000 97 % Respirations 2024-06-10 09:11:00.000 18 /min Respirations 2024-06-04 12:15:00.000 18 /min Respirations 2024-05-29 09:30:00.000 18 /min Respirations 2024-05-27 09:02:00.000 18 /min Respirations 2024-05-21 13:17:00.000 18 /min Respirations 2024-05-20 09:36:00.000 18 /min Respirations 2024-05-17 11:32:00.000 16 /min Respirations 2024-05-16 09:14:00.000 16 /min Respirations 2024-05-13 10:01:00.000 18 /min Respirations 2024-05-09 09:48:00.000 16 /min Respirations 2024-05-07 12:36:00.000 16 /min Respirations 2024-05-06 09:38:00.000 18 /min Respirations 2024-05-05 11:12:00.000 18 /min Weight (lbs) 2024-05-05 11:12:00.000 160 [lb_av] Systolic Blood Pressure 2024-06-10 09:11:00.000 126 mm [Hg] Systolic Blood Pressure 2024-06-04 12:15:00.000 120 mm [Hg] Systolic Blood Pressure 2024-05-29 09:30:00.000 118 mm [Hg] Systolic Blood Pressure 2024-05-27 09:02:00.000 126 mm [Hg] Systolic Blood Pressure 2024-05-21 13:17:00.000 124 mm [Hg] Systolic Blood Pressure 2024-05-20 09:36:00.000 124 mm [Hg] Systolic Blood Pressure 2024-05-17 11:32:00.000 120 mm [Hg] Systolic Blood Pressure 2024-05-16 09:14:00.000 128 mm [Hg] Systolic Blood Pressure 2024-05-13 10:01:00.000 140 mm [Hg] Systolic Blood Pressure 2024-05-09 09:48:00.000 120 mm [Hg] Systolic Blood Pressure 2024-05-07 12:36:00.000 118 mm [Hg] Systolic Blood Pressure 2024-05-06 09:38:00.000 134 mm [Hg] Systolic Blood Pressure 2024-05-05 11:12:00.000 128 mm [Hg] Diastolic Blood Pressure 2024-06-10 09:11:00.000 72 mm [Hg] Diastolic Blood Pressure 2024-06-04 12:15:00.000 70 mm [Hg] Diastolic Blood Pressure 2024-05-29 09:30:00.000 62 mm [Hg] Diastolic Blood Pressure 2024-05-27 09:02:00.000 78 mm [Hg] Diastolic Blood Pressure 2024-05-21 13:17:00.000 68 mm [Hg] Diastolic Blood Pressure 2024-05-20 09:36:00.000 72 mm [Hg] Diastolic Blood Pressure 2024-05-17 11:32:00.000 80 mm [Hg] Diastolic Blood Pressure 2024-05-16 09:14:00.000 70 mm [Hg] Diastolic Blood Pressure 2024-05-13 10:01:00.000 76 mm [Hg] Diastolic Blood Pressure 2024-05-09 09:48:00.000 62 mm [Hg] Diastolic Blood Pressure 2024-05-07 12:36:00.000 64 mm [Hg] Diastolic Blood Pressure 2024-05-06 09:38:00.000 66 mm [Hg] Diastolic Blood Pressure 2024-05-05 11:12:00.000 70 mm [Hg] Plan of Treatment Planned Activity Planned Date Details Comments Future Scheduled Test RN TO OBSE RVE, ASSESS, EVALUATE, AND DEVELOP AN INDIVIDUALIZED PLAN OF CARE. AGENCY MAY ACCEPT ORDERS FROM CONSULTING PHYSICIANS RN TO OBSERVE AND ASSESS, STEM DRYER MAINTAINER/TAPE MAKER TO OBSERVE FOR RISK FOR FALLS AND INSTRUCT IN FALL PREVENTION, HOME SAFETY, MEDICATION MANAGEMENT, INFECTION PREVENTION, AND NUTRITION MANAGEMENT. RN/STEM DRYER MAINTAINER/TAPE MAKER NURSE MAY PERFORM O2 SATURATION LEVEL ON ADMISSION AND PRN FOR RN TO ASSESS/STEM DRYER MAINTAINER TO OBSERVE PATIENT, WITH NOTIFICATION TO THE PHYSICIAN IF SATURATION IS 90% IN THE ABSENCE OF MORE SPECIFIC PARAMETERS FROM THE PHYSICIAN. AGENCY MAY PERFORM A RESUMPTION OF CARE VISIT FOLLOWING ANY HOSPITAL ADMISSION. RN/STEM DRYER MAINTAINER/TAPE MAKER TO MONITOR CO-MORBID CONDITIONS LISTED ON THE PLAN OF CARE AND ANY NEW CONDITIONS THAT PRESENT THEMSELVES DURING THIS EPISODE TO IDENTIFY CHANGES AND INTERVENE TO MINIMIZE COMPLICATIONS. [code = RN TO OBSERVE, ASSESS, EVALUATE, AND DEVELOP AN INDIVIDUALIZED PLAN OF CARE. AGENCY MAY ACCEPT ORDERS FROM CONSULTING PHYSICIANS RN TO OBSERVE AND ASSESS, STEM DRYER MAINTAINER/TAPE MAKER TO OBSERVE FOR RISK FOR FALLS AND INSTRUCT IN FALL PREVENTION, HOME SAFETY, MEDICATION MANAGEMENT, INFECTION PREVENTION, AND NUTRITION MANAGEMENT. RN/STEM DRYER MAINTAINER/TAPE MAKER NURSE MAY PERFORM O2 SATURATION LEVEL ON ADMISSION AND PRN FOR RN TO ASSESS/STEM DRYER MAINTAINER TO OBSERVE PATIENT, WITH NOTIFICATION TO THE PHYSICIAN IF SATURATION IS 90% IN THE ABSENCE OF MORE SPECIFIC PARAMETERS FROM THE PHYSICIAN. AGENCY MAY PERFORM A RESUMPTION OF CARE VISIT FOLLOWING ANY HOSPITAL ADMISSION. RN/STEM DRYER MAINTAINER/TAPE MAKER TO MONITOR CO-MORBID CONDITIONS LISTED ON THE PLAN OF CARE AND ANY NEW CONDITIONS THAT PRESENT THEMSELVES DURING THIS EPISODE TO IDENTIFY CHANGES AND INTERVENE TO MINIMIZE COMPLICATIONS.] Future Scheduled Test RISK FOR H OSPITALIZATION; RN TO ASSESS/TEACH, TAPE MAKER/STEM DRYER MAINTAINER TO OBSERVE/TEACH PATIENT/CAREGIVER ON RISK FOR HOSPITALIZATION/EMERGENCY ROOM VISITS, TEACH SIGNS AND SYMPTOMS THAT PUT PATIENT AT RISK, WHEN TO NOTIFY NURSE/PHYSICIAN OF COMPLICATIONS/DECLINE, AND WHEN TO CALL 911. [code = RISK FOR HOSPITALIZATION; RN TO ASSESS/TEACH, TAPE MAKER/STEM DRYER MAINTAINER TO OBSERVE/TEACH PATIENT/CAREGIVER ON RISK FOR HOSPITALIZATION/EMERGENCY ROOM VISITS, TEACH SIGNS AND SYMPTOMS THAT PUT PATIENT AT RISK, WHEN TO NOTIFY NURSE/PHYSICIAN OF COMPLICATIONS/DECLINE, AND WHEN TO CALL 911.] Future Scheduled Test MEDICATION MANAGEMENT; RN/STEM DRYER MAINTAINER/TAPE MAKER TO REVIEW MEDICATIONS FOR INTERACTIONS, EFFECTIVENESS OF DRUG THERAPY, AND SIGNS/SYMPTOMS OF ADVERSE REACTIONS. MAY INSTRUCT AND REINFORCE MEDICATION TEACHING RELATED TO THE USE OF MEDICATIONS, DOSAGE, FREQUENCY, PURPOSE, SIDE EFFECTS, AND TO REPORT COMPLICATIONS. [code = MEDICATION MANAGEMENT; RN/STEM DRYER MAINTAINER/TAPE MAKER TO REVIEW MEDICATIONS FOR INTERACTIONS, EFFECTIVENESS OF DRUG THERAPY, AND SIGNS/SYMPTOMS OF ADVERSE REACTIONS. MAY INSTRUCT AND REINFORCE MEDICATION TEACHING RELATED TO THE USE OF MEDICATIONS, DOSAGE, FREQUENCY, PURPOSE, SIDE EFFECTS, AND TO REPORT COMPLICATIONS.] Future Scheduled Test RN/STEM DRYER MAINTAINER/TAPE MAKER TO PERFORM/TEACH INCISION TO LEFT HIP TO PT/ CAREGIVER [code = RN/STEM DRYER MAINTAINER/TAPE MAKER TO PERFORM/TEACH INCISION TO LEFT HIP TO PT/ CAREGIVER ] Future Scheduled Test PAIN MANAG EMENT; RN TO ASSESS AND TEACH, TAPE MAKER/STEM DRYER MAINTAINER TO OBSERVE AND TEACH AND PROVIDE EDUCATION ON PAIN MANAGEMENT TECHNIQUES. [code = PAIN MANAGEMENT; RN TO ASSESS AND TEACH, TAPE MAKER/STEM DRYER MAINTAINER TO OBSERVE AND TEACH AND PROVIDE EDUCATION ON PAIN MANAGEMENT TECHNIQUES.] Future Scheduled Test FALL REDUC TION MANAGEMENT; RN TO ASSESS AND TEACH, STEM DRYER MAINTAINER/TAPE MAKER TO OBSERVE AND TEACH ON EDUCATION AND INTERVENTION TO IDENTIFY FALL RISK FACTORS SUCH MEDICATIONS THAT MAY CAUSE DIZZINESS, CHRONIC DISEASES, PSYCHOLOGICAL FACTORS, AND EMPOWER/EDUCATE PATIENT/CAREGIVER TO MINIMIZE FALL RISK. [code = FALL REDUCTION MANAGEMENT; RN TO ASSESS AND TEACH, STEM DRYER MAINTAINER/TAPE MAKER TO OBSERVE AND TEACH ON EDUCATION AND INTERVENTION TO IDENTIFY FALL RISK FACTORS SUCH MEDICATIONS THAT MAY CAUSE DIZZINESS, CHRONIC DISEASES, PSYCHOLOGICAL FACTORS, AND EMPOWER/EDUCATE PATIENT/CAREGIVER TO MINIMIZE FALL RISK.] Future Scheduled Test PHYSICAL T HERAPIST TO EVALUATE FOR STRENGTH TRAINING AND MOBILITY [code = PHYSICAL THERAPIST TO EVALUATE FOR STRENGTH TRAINING AND MOBILITY ] Future Scheduled Test AGENCY MAY PERFORM A RESUMPTION OF CARE VISIT FOLLOWING ANY HOSPITAL ADMISSION. PT TO EVALUATE, OBSERVE / ASSESS, AND MONITOR, SENIOR EXECUTIVE ASSISTANT TO OBSERVE AND MONITOR, PROVIDE SKILLED THERAPEUTIC INTERVENTION, ACTIVITY, EDUCATION, AND TRAINING TO ADDRESS; PT/SENIOR EXECUTIVE ASSISTANT TO PROVIDE GAIT TRAINING FOR IMPROVED MOBILITY AND /OR TO NORMALIZE GAIT PATTERN THERAPEUTIC EXERCISES AND ESTABLISHING A HOME EXERCISE PROGRAM (PT/SENIOR EXECUTIVE ASSISTANT) PT/SENIOR EXECUTIVE ASSISTANT TO PROVIDE STAIR TRAINING SIT TO/FROM STAND TRANSFERS (PT/SENIOR EXECUTIVE ASSISTANT) PT / SENIOR EXECUTIVE ASSISTANT TO MONITOR AND EDUCATE ON OXYGEN SATURATION DURING ADLS/IADLS, NOTIFY PHYSICIAN AND/OR THE RN CLINICAL MATH INSTRUCTOR FOR PHYSICIAN NOTIFICATION AND IF O2 SATS BELOW PHYSICIAN ORDERED PARAMETERS AFTER 10 MIN OF REST PT / SENIOR EXECUTIVE ASSISTANT TO EDUCATE ON HIP REPLACEMENT SELF-MANAGEMENT PT/SENIOR EXECUTIVE ASSISTANT TO IDENTIFY FALL RISK FACTORS; EDUCATE THE PATIENT/CAREGIVER ON WAYS TO REDUCE FALL RISK FACTORS AND ESTABLISH HOME EXERCISE PROGRAM TO MINIMIZE FALL RISK. MAY TEACH THE PATIENT FLOOR RECOVERY WHEN CLINICALLY APPROPRIATE PT / SENIOR EXECUTIVE ASSISTANT MAY EDUCATE ON PAIN MANAGEMENT CLINICALLY INDICATED, INCLUDING NON-PHARMACOLOGICAL PAIN REDUCTION TECHNIQUES. [code = AGENCY MAY PERFORM A RESUMPTION OF CARE VISIT FOLLOWING ANY HOSPITAL ADMISSION. PT TO EVALUATE, OBSERVE / ASSESS, AND MONITOR, SENIOR EXECUTIVE ASSISTANT TO OBSERVE AND MONITOR, PROVIDE SKILLED THERAPEUTIC INTERVENTION, ACTIVITY, EDUCATION, AND TRAINING TO ADDRESS; PT/SENIOR EXECUTIVE ASSISTANT TO PROVIDE GAIT TRAINING FOR IMPROVED MOBILITY AND /OR TO NORMALIZE GAIT PATTERN THERAPEUTIC EXERCISES AND ESTABLISHING A HOME EXERCISE PROGRAM (PT/SENIOR EXECUTIVE ASSISTANT) PT/SENIOR EXECUTIVE ASSISTANT TO PROVIDE STAIR TRAINING SIT TO/FROM STAND TRANSFERS (PT/SENIOR EXECUTIVE ASSISTANT) PT / SENIOR EXECUTIVE ASSISTANT TO MONITOR AND EDUCATE ON OXYGEN SATURATION DURING ADLS/IADLS, NOTIFY PHYSICIAN AND/OR THE RN CLINICAL MATH INSTRUCTOR FOR PHYSICIAN NOTIFICATION AND IF O2 SATS BELOW PHYSICIAN ORDERED PARAMETERS AFTER 10 MIN OF REST PT / SENIOR EXECUTIVE ASSISTANT TO EDUCATE ON HIP REPLACEMENT SELF-MANAGEMENT PT/SENIOR EXECUTIVE ASSISTANT TO IDENTIFY FALL RISK FACTORS; EDUCATE THE PATIENT/CAREGIVER ON WAYS TO REDUCE FALL RISK FACTORS AND ESTABLISH HOME EXERCISE PROGRAM TO MINIMIZE FALL RISK. MAY TEACH THE PATIENT FLOOR RECOVERY WHEN CLINICALLY APPROPRIATE PT / SENIOR EXECUTIVE ASSISTANT MAY EDUCATE ON PAIN MANAGEMENT CLINICALLY INDICATED, INCLUDING NON-PHARMACOLOGICAL PAIN REDUCTION TECHNIQUES. ] Future Scheduled Test AGENCY MAY PERFORM A RESUMPTION OF CARE VISIT FOLLOWING ANY HOSPITAL ADMISSION. OT TO EVALUATE, OBSERVE / ASSESS, AND MONITOR, JACKIE TO OBSERVE AND MONITOR, PROVIDE SKILLED THERAPEUTIC INTERVENTION, ACTIVITY, EDUCATION, AND TRAINING TO ADDRESS; PERSONAL HYGIENE/GROOMING (OT/AJCKIE) BATHING/SHOWERING (OT/MECHANIC CHIEF) DRESSING (OT/JACKIE) ACTIVITIES OF DAILY LIVING (OT/JACKIE) TOILET TRANSFER (OT/MECHANIC CHIEF) BATH/SHOWER TRANSFER (OT/MECHANIC CHIEF) THERAPEUTIC EXERCISE (OT/MECHANIC CHIEF) OT/MECHANIC CHIEF TO MONITOR AND EDUCATE ON OXYGEN SATURATION DURING ADLS/IADLS, NOTIFY PHYSICIAN AND/OR THE RN CLINICAL MATH INSTRUCTOR FOR PHYSICIAN NOTIFICATION AND IF O2 SATS BELOW 90% AFTER 10 MIN OF REST. OT / MECHANIC CHIEF TO IDENTIFY FALL RISK FACTORS; EDUCATE THE PATIENT/CAREGIVER ON WAYS TO REDUCE FALL RISK FACTORS AND ESTABLISH HOME EXERCISE PROGRAM TO MINIMIZE FALL RISK. MAY TEACH THE PATIENT FLOOR RECOVERY WHEN CLINICALLY APPROPRIATE. OT/MECHANIC CHIEF TO TEACH HIP REPLACEMENT SELF-MANAGEMENT OT/JACKIE MAY EDUCATE ON PAIN MANAGEMENT CLINICALLY INDICATED, INCLUDING NON-PHARMACOLOGICAL PAIN REDUCTION TECHNIQUES. [code = AGENCY MAY PERFORM A RESUMPTION OF CARE VISIT FOLLOWING ANY HOSPITAL ADMISSION. OT TO EVALUATE, OBSERVE / ASSESS, AND MONITOR, JACKIE TO OBSERVE AND MONITOR, PROVIDE SKILLED THERAPEUTIC INTERVENTION, ACTIVITY, EDUCATION, AND TRAINING TO ADDRESS; PERSONAL HYGIENE/GROOMING (OT/JACKIE) BATHING/SHOWERING (OT/JACKIE) DRESSING (OT/JACKIE) ACTIVITIES OF DAILY LIVING (OT/MECHANIC CHIEF) TOILET TRANSFER (OT/MECHANIC CHIEF) BATH/SHOWER TRANSFER (OT/MECHANIC CHIEF) THERAPEUTIC EXERCISE (OT/MECHANIC CHIEF) OT/JACKIE TO MONITOR AND EDUCATE ON OXYGEN SATURATION DURING ADLS/IADLS, NOTIFY PHYSICIAN AND/OR THE RN CLINICAL MATH INSTRUCTOR FOR PHYSICIAN NOTIFICATION AND IF O2 SATS BELOW 90% AFTER 10 MIN OF REST. OT / MECHANIC CHIEF TO IDENTIFY FALL RISK FACTORS; EDUCATE THE PATIENT/CAREGIVER ON WAYS TO REDUCE FALL RISK FACTORS AND ESTABLISH HOME EXERCISE PROGRAM TO MINIMIZE FALL RISK. MAY TEACH THE PATIENT FLOOR RECOVERY WHEN CLINICALLY APPROPRIATE. OT/JACKIE TO TEACH HIP REPLACEMENT SELF-MANAGEMENT OT/MECHANIC CHIEF MAY EDUCATE ON PAIN MANAGEMENT CLINICALLY INDICATED, INCLUDING NON-PHARMACOLOGICAL PAIN REDUCTION TECHNIQUES. ] Goal 2024-06-10 Patient Goal - T O HEAL WITHOUT COMPLICATIONS Goal Provider Goal - A PLAN OF CARE WILL BE ESTABLISHED THAT MEETS THE PATIENTS NEEDS. PATIENT WILL DEMONSTRATE OXYGEN SATURATION WITHIN NORMAL LIMITS OR PATIENTS OPTIMAL LEVEL ESTABLISHED BY THE PHYSICIAN THROUGHOUT CARE. CHANGES TO CO-MORBID CONDITIONS AND ANY NEW CONDITIONS WILL BE IDENTIFIED AND REPORTED TO THE PHYSICIAN. Goal Provider Goal - PATIENT/CAREGIVER WILL VERBALIZE UNDERSTANDING OF SIGNS AND SYMPTOMS THAT PUT THE PATIENT AT RISK FOR HOSPITALIZATION /EMERGENCY ROOM VISITS, WHEN TO NOTIFY NURSE/PHYSICIAN OF COMPLICATIONS/DECLINE AND WHEN TO CALL 911. Goal Provider Goal - PATIENT/ CAREGIVER TO VERBALIZE, AND CONSISTENTLY DEMONSTRATE EFFECTIVE, SAFE MANAGEMENT OF MEDICATION INCLUDING KNOWLEDGE OF EFFECTIVENESS, POTENTIAL SIDE EFFECTS AND DRUG REACTIONS AND WHEN TO CONTACT THE APPROPRIATE CARE PROVIDER. PATIENT/CAREGIVER WILL BE ABLE TO VERBALIZE UNDERSTANDING OF MEDICATION REGIMEN AND ACCURATELY TAKE MEDICATIONS PRESCRIBED WITHOUT ADVERSE EFFECTS BY END OF EPISODE. Goal Provider Goal - PATIENT/CAREGIVER WILL VERBALIZE / DEMONSTRATE ABILITY TO ASSESS INCISION ON LEFT HIP FOR S/S OF INFECTION DAILY. WOUND STATUS WILL IMPROVE EVIDENCED BY A DECREASE IN SIZE, ABSENCE OF INFECTION, AND DECREASED PAIN BY END OF EPISODE. Goal Provider Goal - PATIENT /CAREGIVER WILL VERBALIZE / DEMONSTRATE UNDERSTANDING OF PAIN CONTROL MEASURES BY END OF EPISODE. Goal Provider Goal - PATIENT/CAREGIVER ABLE TO IDENTIFY FALL RISK FACTORS AND IMPLEMENT STRATEGIES TO MINIMIZE FALL RISK. PATIENT/WILL VERBALIZE/DEMONSTRATE AN ABILITY TO ADHERE TO FALL REDUCTION SELF-MANAGEMENT AND LIFE-STYLE CHANGES AT DISCHARGE. PERSONAL GOAL STATED BY PATIENT/ WILL BE MET BY END OF EPISODE Goal Provider Goal - PATIENT WILL DEMO INDEP PERFORMANCE OF SUPINE AND SEATED HEP IN 4 WEEKS TO PROMOTE LE STABILITY AND ACTIVITY TOLERANCE PATIENT WILL IMPROVE HOUSEHOLD GAIT AND STAIRS FROM MIN LILI INDEPENDENT IN 8 WEEKS TO PROMOTE IMPROVED FUNCTIONAL MOBILITY PATIENT WILL IMPROVE HOUSEHOLD TRANSFERS FROM CGA AND MIN A TO INDEPENDENT IN 6 WEEKS TO PROMOTE IMPROVED FUNCTIONAL MOBILITY PT LTG: PATIENT WILL MAINTAIN OXYGEN SATURATION WITHIN PHYSICIAN ORDERED PARAMETERS THROUGHOUT EPISODE OF CARE. PT GOAL: PATIENT WILL DEMONSTRATE OPTIMAL OUTCOMES INCLUDING INCREASED ROM AND STRENGTH WITH NO COMPLICATIONS FOLLOWING HIP SURGERY BY END OF EPISODE. PT LTG: PATIENT/CAREGIVER WILL DEMONSTRATE ADHERENCE TO FALL REDUCTION SELF-MANAGEMENT AND REDUCING FALL RISK FACTORS TO MINIMIZE FALL RISK BY END OF EPISODE PT LTG: PATIENT WILL BE INDEPENDENT WITH IMPLEMENTATION OF HEP WITHIN 4 WEEKS PT LTG: CAREGIVER WILL BE INDEPENDENT ASSISTING PATIENT TO COMPLETE HEP WITHIN 4 WEEKS PT GOAL: PATIENT WILL DEMONSTRATE UNDERSTANDING OF PAIN MANAGEMENT TECHNIQUES BY END OF EPISODE. Goal Provider Goal - OT STG: PATIENT WILL BE ABLE TO COMPLETE GROOMING SKILLS FROM MINIMAL ASSISTANCE IN FRONT OF THE SINK TO MODIFIED INDEPENDENCE SITTING IN FRONT OF THE SINK WITH A SECURE CHAIR WITHIN 3 WEEKS. OT LTG: PATIENT WILL DEMONSTRATE IMPROVED ABILITY TO PERFORM BATHING/SHOWERING AND REDUCE CAREGIVER BURDEN FROM UNABLE TO MIN A TO SHOWER WITHIN 6 WEEKS OT STG: PATIENT WILL DEMONSTRATE IMPROVED ABILITY TO PERFORM LOWER BODY DRESSING FOLLOWING HIP PRECAUTIONS TO REDUCE CAREGIVER BURDEN AND UTILIZING ADAPTIVE EQUIPMENT FROM MOD A TO MODIFIED INDEPENDENCE WITHIN 4 WEEKS. OT STG: PATIENT WILL DEMONSTRATE IMPROVEMENT IN MODIFIED JOEL INDEX SCORE FROM 62 TO 75 INDICATING DECREASED DEPENDENCY ON CAREGIVER ASSISTANCE WITH ACTIVITIES OF DAILY LIVING WITHIN 8 WEEKS OT LTG: PATIENT WILL DEMONSTRATE IMPROVED ABILITY TO PERFORM TOILET TRANSFERS TO REDUCE FALL RISK AND RISK OF INCONTINENCE AND UTI DEVELOPMENT FROM MIN A TO MODIFIED INDEPENDENCE WITHIN 4 WEEKS MAINTAINING HIP PRECAUTIONS AND WEIGHT BEARING LLE. OT LTG: PATIENT WILL DEMONSTRATE IMPROVED ABILITY AND SAFETY TO PERFORM BATH/SHOWER TRANSFER FROM UNABLE TO MIN A WITHIN 6 WEEKS OT LTG: PATIENT WILL DEMONSTRATE IMPROVED BUE MUSCLE STRENGTH EVIDENCED BY AN IMPROVEMENT IN MMT/FUNCTIONAL STRENGTH FROM 3+/5 TO 4+/5 WITHIN 6 WEEKS IN ORDER TO COMPLETE TRANSFER TRAINING AND FUNCTIONAL MOBILITY MORE INDEPENDENTLY WHEN ABLE TO WALK. OT LTG: PATIENT WILL MAINTAIN OXYGEN SATURATION WITHIN PHYSICIAN ORDERED PARAMETERS THROUGHOUT THE EPISODE OF CARE. OT LTG: PATIENT/CAREGIVER WILL BE ABLE TO IMPLEMENT RECOMMENDATIONS SPECIFIC TO FALL REDUCTION FOR IMPROVED ADL/IADL COMPLETION AND HOME SAFETY BY END OF EPISODE. OT GOAL: PATIENT/CAREGIVER WILL INCORPORATE HIP REPLACEMENT PATIENT EMPOWERMENT STRATEGIES INTO DAILY ROUTINE BY END OF EPISODE. OT LTG: PATIENT WILL DEMONSTRATE UNDERSTANDING OF PAIN MANAGEMENT TECHNIQUES BY END OF EPISODE. Reason for Visit INDEPENDENT WITH USE OF ASSISTIVE DEVICE Encounters Start Date/Time End Date/Time Encounter Type Admission Type Attending [facility] Department Encounter ID Discharge Date Discharge Status Discharge Condition Discharge Reason Percent Goals Met 2024-05-05 00:00:00 2024-06-10 00:00:00 Outpatient NEW ADMISSION [facility] [id number] 2024-06-10 00:00:00 DISCHARGE TO HOME OR SELF CARE INDEPENDEN T WITH USE OF ASSISTIVE DEVICE HH OR [facility]- GOALS MET 100.00
== END 2024-07-29 08:42 | disposition home or self-care (01) ==
LOC: HO.HOSX 08:41
PROVIDERS: Visit Provider Orthopaedic Surgery
DX: M25.552 Pain in left hip (principal); M25.559 Pain in unspecified hip
CPT/HCPCS: 72170; 73501; 99212

== ENCOUNTER 2024-07-29 10:23 | Outpatient (AMB) | payer MEDICARE, SELFPAY ==
--- NOTE | 2024-07-29 10:36 | MHC.OFFVIS ---
Intake Visit Reasons: PO - L SAM Revision 04/19/24 Intake Note: Courtney is a 74 year old female who presents today for a follow up s/p Left Hip Arthroplasty 04/17/24 & Revision Arthroplasty with ORIF of greater Trochanter 04/19/24. At her last visit in May she was instructed to begin weight bearing as tolerated with a walker. She presents today ambulating with a cane, she reports that the hip has felt better. continues to work with PT. She thinks that the left leg is shorter than the right. On she was concerned of pain and swelling of the left lower extremity, she was seen at PT who suggested to be checked to rule out DVT. She had 2 DVT - being treated with Elliquis. Allergies itraconazole [From Sporanox] Allergy (Severe, Verified 06/03/24 13:29) Facial Swelling, throat swelling HPI HPI PO - L SAM Revision 04/19/24: Details: Courtney is a 74 year old female who presents today for a follow up s/p Left Hip Arthroplasty 04/17/24 & Revision Arthroplasty with ORIF of greater Trochanter 04/19/24. At her last visit in May she was instructed to begin weight bearing as tolerated with a walker. She presents today ambulating with a cane, she reports that the hip has felt better. continues to work with PT. She thinks that the left leg is shorter than the right. On she was concerned of pain and swelling of the left lower extremity, she was seen at PT who suggested to be checked to rule out DVT. She had 2 DVT - being treated with Elliquis. [facility] Medical History (Updated 05/02/24 @ 00:04 by Background Daemon) Arthritis of left hip Depression Anxiety Arthritis Fatty liver Osteoarthritis Back pain GERD (gastroesophageal reflux disease) History of blood transfusion (~2000) History of kidney cancer Surgical History (Updated 05/02/24 @ 00:04 by Background Daemon) History of total left hip arthroplasty History of nephrectomy, left (~2005) History of pubovaginal sling Hx of colonoscopy Hx of tubal ligation Hx of ovarian cystectomy History of back surgery Hx of right knee surgery History of left knee surgery History of hysterectomy H/O bilateral breast biopsy Hx of appendectomy (~1966) Social History Household Members: Significant Other Housing: House Are you a primary child care to a significant other at home: No Do you presently have visiting nurse or other home services: No 75 years or older and lives alone: No Alcohol intake: never Comment: aware of trip hazard Patient Tobacco Use Status: Former Tobacco user Tobacco use type: Cigarette service: No Physical Exam Extrem Other: Trendelenburg gait. No pain with passive motion. Results Reviewed Results Reviewed: I personally reviewed relevant radiographs. Radiographs suggest possible proximal migration of the plate although hard to be certain. Fracture appears unchanged from prior. No evidence of healing but no evidence of displacement either. Assessment & Plan Assessment & Plan (1) Periprosthetic fracture around internal prosthetic left hip joint: Code(s): M97.02XA - Periprosthetic fracture around internal prosthetic left hip joint, initial encounter Category: Medical Plan: Continue weight-bearing with walker and PT. like to see her back in 3 months. She had a blood clot and is being treated with Eliquis. She is looking to find a cheaper alternative. (2) Status post total hip replacement, left: Code(s): Z96.642 - Presence of left artificial hip joint Category: Surgical Plan: Orders: Orders XR pelvis 1-2V Today M25.559 - Pain in unspecified hip XR hip LT 1V Today M25.552 - Pain in left hip Coding Level of Care Code Global (44028) Diagnoses Periprosthetic fracture around internal prosthetic left hip joint M97.02XA Status post total hip replacement, left Z96.642
--- OUTSIDE RECORDS SUMMARY | 2024-07-29 11:24 | XMS_ITS | Continuity of Care Document ---
Author Organization [facility] Address [address] [place] [address] Phone Care Team Providers Care Stone Setter Apprentice Name Role Phone Van KAY, RVT, RPVI, [...] Mins- [place] & [place] [facility], [address] [place] [address] [address], [id number], [place] tel:[phone] [facility] Chronic venous hypertension (idiopathic) without complications of left lower extremityPostth rombotic syndrome with other complications of left lower extremityLymphe hattie, not elsewhere classifiedHered itary lymphedema 5 Van KAY, KOBI, RUKHSANA Hernandez. [address], [address], [place], [id number] , [place]. tel:[phone] [facility], [address], [place], [id number], [place] tel:[phone] [facility] [place] Pain in left leg 5 Van KAY, KOBI, RUKHSANA Hernandez. [address], [address], [place], [id number] , [place]. [phone] Referring Provider: David Araujo MD, KOBI, RUKHSANA, [address], [place], [address] . tel:[phone] Family History Family Member Type Diagnosis Age At Onset No Information Payers Payer name Insurance type Covered constitution party ID Authoriza tion(s) Medicare SUZY JOY [id number] [facility] AARP Supplement CI [id number] Social History Type Description Quantity Date [...] mass index (BMI) 25.0-25.9, adult) ordered Appointment Courtney De SantiagoED Appointment Courtney De Santiago BOOKED [...]
--- OUTSIDE RECORDS SUMMARY | 2024-07-29 11:24 | XMS_ITS | Clinical Summary ---
Author Organization Unknown Care Team Providers Care Vp Of Customer Experience Strategy Name Role Phone OSMANY KAY, JJ Unavailable Unavailable NAPJOANIE OT, VALENCIA Unavailable Unavailable CONDINO ENGINEERING PROJECT DESIGNER/PRICE, ESTRADA Unavailable Unav ailable Payers Payer Name Policy Type Policy Number Effective Date Expira tion Date MEDICARE.NGS.PDGM [id number] Problems Condition Name Condition Details Condition Category [...] ARTIFICIAL HIP JOINT Active 04-17 00:00: 00 SHELTER (CURRENT) USE OF ASPIRIN Active 2023-07 00:00: [...] 325 mg tablet 2023-07 00:00: 00 Yes [id number] NSAID 325 mg 2 TIMES DAILY 325 mg 2 TIMES DAILY (route: oral) Med Classific ation: Analgesic , Anti-infl ammatory or Antipyret ic oxycodone 5 mg capsule 2023-07 00:00: 00 Yes [id number] PAIN 5 mg EVERY 6 HOURS 5 mg EVERY 6 HOURS (route: oral) Med Classific ation: Analgesic , Anti-infl ammatory or Antipyret ic Prozac 40 mg capsule 2023-07 00:00: 00 Yes [id number] DEPRESSION 40 mg DAILY 40 mg DAILY (route: oral) Med Classific ation: Central Nervous System Agents Tylenol 325 mg capsule 2023-07 00:00: 00 Yes [id number] PAIN MED 975 mg 3 TIMES DAILY 975 mg 3 TIMES DAILY (route: oral) Med Classific ation: Analgesic , Anti-infl ammatory or Antipyret ic Vesicare 10 mg tablet 2023-07 00:00: 00 Yes [id number] OVERACTIVE BLADDER 5 mg DAILY 5 mg DAILY (route: oral) Med Classific ation: Genitouri nary Therapy Wellbutrin XL 150 mg 24 hr tablet, extended release 2023-07 00:00: 00 Yes [id number] DEPRESSION 150 mg DAILY 150 mg DAILY (route: oral) Med Classific ation: Central Nervous System Agents Calcium 600 + D(3) 600 mg-10 mcg (400 unit) tablet 2023-07 00:00: 00 Yes [id number] SUPPLEMENT 1 tablet 2 TIMES DAILY 1 [...] CONSULTING PHYSICIANS RN TO OBSERVE AND ASSESS, AWS SOLUTION ARCHITECT/ALTERNATIVE ENERGY ENGINEER TO OBSERVE FOR RISK FOR FALLS AND INSTRUCT IN FALL PREVENTION, HOME SAFETY, MEDICATION MANAGEMENT, INFECTION PREVENTION, AND NUTRITION MANAGEMENT. RN/AWS SOLUTION ARCHITECT/ALTERNATIVE ENERGY ENGINEER NURSE MAY PERFORM O2 SATURATION LEVEL ON ADMISSION AND PRN FOR RN TO ASSESS/AWS SOLUTION ARCHITECT TO OBSERVE PATIENT, WITH NOTIFICATION TO THE PHYSICIAN IF SATURATION IS 90% IN THE ABSENCE OF MORE SPECIFIC PARAMETERS FROM THE PHYSICIAN. AGENCY MAY PERFORM A RESUMPTION OF CARE VISIT FOLLOWING ANY HOSPITAL ADMISSION. RN/AWS SOLUTION ARCHITECT/ALTERNATIVE ENERGY ENGINEER TO MONITOR CO-MORBID CONDITIONS LISTED ON THE PLAN OF CARE AND ANY NEW CONDITIONS THAT PRESENT THEMSELVES DURING THIS EPISODE TO IDENTIFY CHANGES AND INTERVENE TO MINIMIZE COMPLICATIONS. [code = RN TO OBSERVE, ASSESS, EVALUATE, AND DEVELOP AN INDIVIDUALIZED PLAN OF CARE. AGENCY MAY ACCEPT ORDERS FROM CONSULTING PHYSICIANS RN TO OBSERVE AND ASSESS, AWS SOLUTION ARCHITECT/ALTERNATIVE ENERGY ENGINEER TO OBSERVE FOR RISK FOR FALLS AND INSTRUCT IN FALL PREVENTION, HOME SAFETY, MEDICATION MANAGEMENT, INFECTION PREVENTION, AND NUTRITION MANAGEMENT. RN/AWS SOLUTION ARCHITECT/ALTERNATIVE ENERGY ENGINEER NURSE MAY PERFORM O2 SATURATION LEVEL ON ADMISSION AND PRN FOR RN TO ASSESS/AWS SOLUTION ARCHITECT TO OBSERVE PATIENT, WITH NOTIFICATION TO THE PHYSICIAN IF SATURATION IS 90% IN THE ABSENCE OF MORE SPECIFIC PARAMETERS FROM THE PHYSICIAN. AGENCY MAY PERFORM A RESUMPTION OF CARE VISIT FOLLOWING ANY HOSPITAL ADMISSION. RN/AWS SOLUTION ARCHITECT/ALTERNATIVE ENERGY ENGINEER TO MONITOR CO-MORBID CONDITIONS LISTED ON THE PLAN OF CARE AND ANY NEW CONDITIONS THAT PRESENT THEMSELVES DURING THIS EPISODE TO IDENTIFY CHANGES AND INTERVENE TO MINIMIZE COMPLICATIONS.] Future Scheduled Test RISK FOR H OSPITALIZATION; RN TO ASSESS/TEACH, ALTERNATIVE ENERGY ENGINEER/AWS SOLUTION ARCHITECT TO OBSERVE/TEACH PATIENT/CAREGIVER ON RISK FOR HOSPITALIZATION/EMERGENCY ROOM VISITS, TEACH SIGNS AND SYMPTOMS THAT PUT PATIENT AT RISK, WHEN TO NOTIFY NURSE/PHYSICIAN OF COMPLICATIONS/DECLINE, AND WHEN TO CALL 911. [code = RISK FOR HOSPITALIZATION; RN TO ASSESS/TEACH, ALTERNATIVE ENERGY ENGINEER/AWS SOLUTION ARCHITECT TO OBSERVE/TEACH PATIENT/CAREGIVER ON RISK FOR HOSPITALIZATION/EMERGENCY ROOM VISITS, TEACH SIGNS AND SYMPTOMS THAT PUT PATIENT AT RISK, WHEN TO NOTIFY NURSE/PHYSICIAN OF COMPLICATIONS/DECLINE, AND WHEN TO CALL 911.] Future Scheduled Test MEDICATION MANAGEMENT; RN/AWS SOLUTION ARCHITECT/ALTERNATIVE ENERGY ENGINEER TO REVIEW MEDICATIONS FOR INTERACTIONS, EFFECTIVENESS OF DRUG THERAPY, AND SIGNS/SYMPTOMS OF ADVERSE REACTIONS. MAY INSTRUCT AND REINFORCE MEDICATION TEACHING RELATED TO THE USE OF MEDICATIONS, DOSAGE, FREQUENCY, PURPOSE, SIDE EFFECTS, AND TO REPORT COMPLICATIONS. [code = MEDICATION MANAGEMENT; RN/AWS SOLUTION ARCHITECT/ALTERNATIVE ENERGY ENGINEER TO REVIEW MEDICATIONS FOR INTERACTIONS, EFFECTIVENESS OF DRUG THERAPY, AND SIGNS/SYMPTOMS OF ADVERSE REACTIONS. MAY INSTRUCT AND REINFORCE MEDICATION TEACHING RELATED TO THE USE OF MEDICATIONS, DOSAGE, FREQUENCY, PURPOSE, SIDE EFFECTS, AND TO REPORT COMPLICATIONS.] Future Scheduled Test RN/AWS SOLUTION ARCHITECT/ALTERNATIVE ENERGY ENGINEER TO PERFORM/TEACH INCISION TO LEFT HIP TO PT/ CAREGIVER [code = RN/AWS SOLUTION ARCHITECT/ALTERNATIVE ENERGY ENGINEER TO PERFORM/TEACH INCISION TO LEFT HIP TO PT/ CAREGIVER ] Future Scheduled Test PAIN MANAG EMENT; RN TO ASSESS AND TEACH, ALTERNATIVE ENERGY ENGINEER/AWS SOLUTION ARCHITECT TO OBSERVE AND TEACH AND PROVIDE EDUCATION ON PAIN MANAGEMENT TECHNIQUES. [code = PAIN MANAGEMENT; RN TO ASSESS AND TEACH, ALTERNATIVE ENERGY ENGINEER/AWS SOLUTION ARCHITECT TO OBSERVE AND TEACH AND PROVIDE EDUCATION ON PAIN MANAGEMENT TECHNIQUES.] Future Scheduled Test FALL REDUC TION MANAGEMENT; RN TO ASSESS AND TEACH, AWS SOLUTION ARCHITECT/ALTERNATIVE ENERGY ENGINEER TO OBSERVE AND TEACH ON EDUCATION AND INTERVENTION TO IDENTIFY FALL RISK FACTORS SUCH MEDICATIONS THAT MAY CAUSE DIZZINESS, CHRONIC DISEASES, PSYCHOLOGICAL FACTORS, AND EMPOWER/EDUCATE PATIENT/CAREGIVER TO MINIMIZE FALL RISK. [code = FALL REDUCTION MANAGEMENT; RN TO ASSESS AND TEACH, AWS SOLUTION ARCHITECT/ALTERNATIVE ENERGY ENGINEER TO OBSERVE AND TEACH ON EDUCATION AND [...] TO EVALUATE, OBSERVE / ASSESS, AND MONITOR, HOP FARM WORKER TO OBSERVE AND MONITOR, PROVIDE SKILLED THERAPEUTIC INTERVENTION, ACTIVITY, EDUCATION, AND TRAINING TO ADDRESS; PT/HOP FARM WORKER TO PROVIDE GAIT TRAINING FOR IMPROVED MOBILITY AND /OR TO NORMALIZE GAIT PATTERN THERAPEUTIC EXERCISES AND ESTABLISHING A HOME EXERCISE PROGRAM (PT/HOP FARM WORKER) PT/HOP FARM WORKER TO PROVIDE STAIR TRAINING SIT TO/FROM STAND TRANSFERS (PT/HOP FARM WORKER) PT / HOP FARM WORKER TO MONITOR AND EDUCATE ON OXYGEN SATURATION DURING ADLS/IADLS, NOTIFY PHYSICIAN AND/OR THE RN CLINICAL MANAGER OF CASE MANAGEMENT FOR PHYSICIAN NOTIFICATION AND IF O2 SATS BELOW PHYSICIAN ORDERED PARAMETERS AFTER 10 MIN OF REST PT / HOP FARM WORKER TO EDUCATE ON HIP REPLACEMENT SELF-MANAGEMENT PT/HOP FARM WORKER TO IDENTIFY FALL RISK FACTORS; EDUCATE THE PATIENT/CAREGIVER ON WAYS TO REDUCE FALL RISK FACTORS AND ESTABLISH HOME EXERCISE PROGRAM TO MINIMIZE FALL RISK. MAY TEACH THE PATIENT FLOOR RECOVERY WHEN CLINICALLY APPROPRIATE PT / HOP FARM WORKER MAY EDUCATE ON PAIN MANAGEMENT CLINICALLY INDICATED, INCLUDING NON-PHARMACOLOGICAL PAIN REDUCTION TECHNIQUES. [code = AGENCY MAY PERFORM A RESUMPTION OF CARE VISIT FOLLOWING ANY HOSPITAL ADMISSION. PT TO EVALUATE, OBSERVE / ASSESS, AND MONITOR, HOP FARM WORKER TO OBSERVE AND MONITOR, PROVIDE SKILLED THERAPEUTIC INTERVENTION, ACTIVITY, EDUCATION, AND TRAINING TO ADDRESS; PT/HOP FARM WORKER TO PROVIDE GAIT TRAINING FOR IMPROVED MOBILITY AND /OR TO NORMALIZE GAIT PATTERN THERAPEUTIC EXERCISES AND ESTABLISHING A HOME EXERCISE PROGRAM (PT/HOP FARM WORKER) PT/HOP FARM WORKER TO PROVIDE STAIR TRAINING SIT TO/FROM STAND TRANSFERS (PT/HOP FARM WORKER) PT / HOP FARM WORKER TO MONITOR AND EDUCATE ON OXYGEN SATURATION DURING ADLS/IADLS, NOTIFY PHYSICIAN AND/OR THE RN CLINICAL MANAGER OF CASE MANAGEMENT FOR PHYSICIAN NOTIFICATION AND IF O2 SATS BELOW PHYSICIAN ORDERED PARAMETERS AFTER 10 MIN OF REST PT / HOP FARM WORKER TO EDUCATE ON HIP REPLACEMENT SELF-MANAGEMENT PT/HOP FARM WORKER TO IDENTIFY FALL RISK FACTORS; EDUCATE THE PATIENT/CAREGIVER ON WAYS TO REDUCE FALL RISK FACTORS AND ESTABLISH HOME EXERCISE PROGRAM TO MINIMIZE FALL RISK. MAY TEACH THE PATIENT FLOOR RECOVERY WHEN CLINICALLY APPROPRIATE PT / HOP FARM WORKER MAY EDUCATE ON PAIN MANAGEMENT CLINICALLY INDICATED, INCLUDING NON-PHARMACOLOGICAL PAIN REDUCTION TECHNIQUES. ] Future Scheduled Test AGENCY MAY PERFORM A RESUMPTION OF CARE VISIT FOLLOWING ANY HOSPITAL ADMISSION. OT TO EVALUATE, OBSERVE / ASSESS, AND MONITOR, JACKIE TO OBSERVE AND MONITOR, PROVIDE SKILLED THERAPEUTIC INTERVENTION, ACTIVITY, EDUCATION, AND TRAINING TO ADDRESS; PERSONAL HYGIENE/GROOMING (OT/JACKIE) BATHING/SHOWERING (OT/ENGINEERING PROJECT DESIGNER) DRESSING (OT/JACKIE) ACTIVITIES OF DAILY LIVING (OT/JACKIE) TOILET TRANSFER (OT/ENGINEERING PROJECT DESIGNER) BATH/SHOWER TRANSFER (OT/ENGINEERING PROJECT DESIGNER) THERAPEUTIC EXERCISE (OT/ENGINEERING PROJECT DESIGNER) OT/ENGINEERING PROJECT DESIGNER TO MONITOR AND EDUCATE ON OXYGEN SATURATION DURING ADLS/IADLS, NOTIFY PHYSICIAN AND/OR THE RN CLINICAL MANAGER OF CASE MANAGEMENT FOR PHYSICIAN NOTIFICATION AND IF O2 SATS BELOW 90% AFTER 10 MIN OF REST. OT / ENGINEERING PROJECT DESIGNER TO IDENTIFY FALL RISK FACTORS; EDUCATE THE PATIENT/CAREGIVER ON WAYS TO REDUCE FALL RISK FACTORS AND ESTABLISH HOME EXERCISE PROGRAM TO MINIMIZE FALL RISK. MAY TEACH THE PATIENT FLOOR RECOVERY WHEN CLINICALLY APPROPRIATE. OT/ENGINEERING PROJECT DESIGNER TO TEACH HIP REPLACEMENT SELF-MANAGEMENT OT/JACKIE MAY [...] (OT/JACKIE) DRESSING (OT/JACKIE) ACTIVITIES OF DAILY LIVING (OT/ENGINEERING PROJECT DESIGNER) TOILET TRANSFER (OT/ENGINEERING PROJECT DESIGNER) BATH/SHOWER TRANSFER (OT/ENGINEERING PROJECT DESIGNER) THERAPEUTIC EXERCISE (OT/ENGINEERING PROJECT DESIGNER) OT/JACKIE TO MONITOR AND EDUCATE ON OXYGEN SATURATION DURING ADLS/IADLS, NOTIFY PHYSICIAN AND/OR THE RN CLINICAL MANAGER OF CASE MANAGEMENT FOR PHYSICIAN NOTIFICATION AND IF O2 SATS BELOW 90% AFTER 10 MIN OF REST. OT / ENGINEERING PROJECT DESIGNER TO IDENTIFY FALL RISK FACTORS; EDUCATE THE PATIENT/CAREGIVER ON WAYS TO REDUCE FALL RISK FACTORS AND ESTABLISH HOME EXERCISE PROGRAM TO MINIMIZE FALL RISK. MAY TEACH THE PATIENT FLOOR RECOVERY WHEN CLINICALLY APPROPRIATE. OT/JACKIE TO TEACH HIP REPLACEMENT SELF-MANAGEMENT OT/ENGINEERING PROJECT DESIGNER MAY EDUCATE ON PAIN MANAGEMENT CLINICALLY INDICATED, [...] End Date/Time Encounter Type Admission Type Attending [facility] Department Encounter ID Discharge Date Discharge Status Discharge Condition Discharge Reason Percent Goals Met 2024-05-05 00:00:00 2024-06-10 00:00:00 Outpatient NEW ADMISSION VALENCIA BENNETT [facility] [id number] 2024-06-10 00:00:00 DISCHARGE TO HOME OR SELF CARE INDEPENDEN T WITH USE OF ASSISTIVE DEVICE HH OR PAL- GOALS MET 100.00
== END 2024-07-29 11:27 | disposition home or self-care (01) ==
PROVIDERS: PCP Internal Medicine; Visit Provider Orthopaedic Surgery
DX: M97.02XA Periprosthetic fracture around internal prosthetic left hip joint, initial encounter (principal); Z96.642 Presence of left artificial hip joint
CPT/HCPCS: 99024

== ENCOUNTER → 2024-07-29 10:29 | Outpatient (BNV) | payer MEDICARE, SELFPAY | PROVIDERS: Visit Provider Radiology Diagnostic Radiology | DX: S72.142A Displaced intertrochanteric fracture of left femur, initial encounter for closed fracture (principal); Z96.642 Presence of left artificial hip joint | CPT/HCPCS: 72170; 73501 ==

== ENCOUNTER 2024-10-31 08:18 | Outpatient (REF) | payer MEDICARE, SELFPAY ==
--- NOTE | ~2024-10-31 | XR_ITS ---
EXAMINATION: XR PELVIS XR HIP, LEFT CLINICAL INFORMATION: M25.552 - Pain in left hip COMPARISON: Numerous priors, dating back to 03/04/2024, most recently 07/29/2024. TECHNIQUE: Two views of the left hip. FINDINGS: Redemonstration of a revision arthroplasty of the left hip. Stable mild lucency surrounding the most proximal aspect of the femoral stem prosthesis, without significant change. Fixation hardware with cerclage wires involving the lateral greater trochanter , unchanged in appearance. No significant subsidence when compared with the most recent radiographs. No acute fracture. Stable subtle lucency surrounding the superior one third of the acetabular prosthesis. This is unchanged compared with the postoperative radiographs of 05/02/2024. Mild osteoarthrosis of the right hip joint, unchanged. No bone lesions. Fixation hardware in the lower lumbar spine at L4-5 with disc prosthesis. No complication evident. Soft tissues demonstrate small surgical clips within the right paramedian pelvis. There are vascular calcifications. XR/XR pelvis 1-2V IMPRESSION: Since the most recent exam, no significant interval change in the appearance of the revision left hip arthroplasty. No acute findings seen. Electronically signed by: Freddy Kim MD 10/31/2024 09:51 AM EDT
--- NOTE | ~2024-10-31 | XR_ITS ---
EXAMINATION: XR PELVIS XR HIP, LEFT CLINICAL INFORMATION: M25.552 - Pain in left hip COMPARISON: Numerous priors, dating back to 03/04/2024, most recently 07/29/2024. TECHNIQUE: Two views of the left hip. FINDINGS: Redemonstration of a revision arthroplasty of the left hip. Stable mild lucency surrounding the most proximal aspect of the femoral stem prosthesis, without significant change. Fixation hardware with cerclage wires involving the lateral greater trochanter , unchanged in appearance. No significant subsidence when compared with the most recent radiographs. No acute fracture. Stable subtle lucency surrounding the superior one third of the acetabular prosthesis. This is unchanged compared with the postoperative radiographs of 05/02/2024. Mild osteoarthrosis of the right hip joint, unchanged. No bone lesions. Fixation hardware in the lower lumbar spine at L4-5 with disc prosthesis. No complication evident. Soft tissues demonstrate small surgical clips within the right paramedian pelvis. There are vascular calcifications. XR/XR hip LT 1V IMPRESSION: Since the most recent exam, no significant interval change in the appearance of the revision left hip arthroplasty. No acute findings seen. Electronically signed by: Freddy Kim MD 10/31/2024 09:51 AM EDT
--- OUTSIDE RECORDS SUMMARY | 2024-10-31 08:27 | XMS_ITS | Clinical Summary ---
Author Organization [facility] ity Address [address] [place] [address] Care Team Providers Care Muck Boss Name Role Phone Unavailable Primary Care Provider Unavailabl e Social History Tobacco Use Types Packs/Day Years Used Date Smoking Tobacco: Never Assessed Comments Unknown Sex and Gender Information Value Date Recorded Sex Assigned at Not on file Legal Sex Female 1:27 PM EST Gender Identity Not on file Sexual Orientation Not on file Plan of Treatment Health Maintenance Due Date Last Done Comments DTaP,Tdap,and Td Vaccines (1 - Tdap) 1968 Pneumococcal Vaccine: 50+ Ye ars (1 of 1 - PCV) 1999 Zoster Vaccines (1 of 2) 1999 COVID-19 Vaccine (2023-2 5 season) 2024 RSV Immunization Adult Patie nts (1 - 1-dose 75+ series) 2024 Colorectal Cancer Screening: Colonoscopy 05/17/2024 Depression Screening 05/17/2024 Falls Risk Assessment 05/17/2024 Hepatitis C Screening 05/17/2024 Osteoporosis Screening (Bone Density Screening) 05/17/2024 Social Influencers of Health Screening 05/17/2024 Influenza Vaccine (Season Ended) 2025 HIB Vaccines Aged Out No longer eligi ble based on patient's age to complete this topic HPV Vaccines Aged Out No longer eligi ble based on patient's age to complete this topic Hepatitis A Vaccines Aged Out No long er eligible based on patient's age to complete this topic Hepatitis B Vaccines Aged Out No long er eligible based on patient's age to complete this topic IPV Vaccines Aged Out No longer eligi ble based on patient's age to complete this topic MMR Vaccines Aged Out No longer eligi ble based on patient's age to complete this topic Meningococcal ACWY Vaccine Aged Out N o longer eligible based on patient's age to complete this topic Meningococcal B Vaccine Aged Out No l onger eligible based on patient's age to complete this topic RSV Immunization Patients Un effie 20 months Aged Out No longer eligible b ased on patient's age to complete this topic Varicella Vaccines Aged Out No longer eligible based on patient's age to complete this topic Advance Directives Documents on File Type Date Recorded Patient Stenciling Machine Tender Expl anation Health Care Decision (hx) 05/13/2024 AD SAMM DIRECTIVE
--- OUTSIDE RECORDS SUMMARY | 2024-10-31 08:28 | XMS_ITS | Clinical Summary ---
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 Swallow whole; do not crush, chew, or divide. Active solifenacin (VESICARE) 10 MG tablet Take 10 mg by mouth every morning. Active zolpidem (AMBIEN) 5 MG tablet Take 5 mg by mouth nightly as needed for sleep. Active FLUoxetine (PROzac) 20 MG capsule Take 20 mg by mouth every morning. Active Cyanocobalamin (VITAMIN B-12 PO) Take 1 tablet by mouth nightly. Active Calcium Carbonate-Vitamin D (CALCIUM-VITAMIN D3 PO) Take 1 tablet by mouth nightly. Active Active Problems Problem Noted Date Diagnosed Date Spinal stenosis, lumbar jamel on, without neurogenic claudication 02/06/2018 Social History Tobacco Use Types Packs/Day Years Used Date Smoking Tobacco: Former Cigarettes Q uit: 01/31/1968 Smokeless Tobacco: Former Alcohol Use Standard Drinks/Week Comments No 0 (1 standard drink = 0.6 oz pur e alcohol) occass AUDIT-C Answer Date Recorded Frequency of Alcohol Consumption Never 01/30/2018 Average Number of Drinks Not on file 018 Frequency of Binge Drinking Not on file 01/21 Sex and Gender Information Value Date Recorded Sex Assigned at Not on file Gender Identity Not on file Sexual Orientation Not on file Last Filed Vital Signs Vital Sign Reading Time Taken Comments Blood Pressure 103/64 02/07/2018 11:17 AM EDT Pulse 72 02/07/2018 11:17 AM EDT Temperature 36.8 ??C (98.2 ??F) 02/07/2018 11:17 AM E DT Respiratory Rate 18 02/07/2018 11:17 AM EDT Oxygen Saturation 97% 02/07/2018 11:17 AM EDT Inhaled Oxygen Concentration - - Weight 73 kg (161 lb) 02/06/2018 7:50 AM EDT Height 165.1 cm (5' 5 ) 02/06/2018 7:50 AM EDT Body Mass Index 26.79 02/06/2018 7:50 AM EDT Plan of Treatment Health Maintenance Due Date Last Done Comments Hepatitis C Virus Screening 1950 DTaP/Tdap/Td Vaccines (1 - Tdap) 1968 Mammogram 1989 Colonoscopy 1994 Pneumococcal Vaccines 50+ (1 of 1 - PCV) 1999 Zoster (Shingles) Vaccine (1 of 2) 1999 DXA Bone Density (Females,Ag es 65 and older) 2014 Influenza Vaccine 02/22/2024 05/16/2006 COVID-19 Vaccine (1 - 2023-2 5 season) 2024 RSV Vaccine 60 years and old er and Patients (1 - 1-dose 75+ series) 2024 Hepatitis B Vaccines Aged Out No long er eligible based on patient's age to complete this topic Medical Devices Implanted Type Area On Site Manager Device Identifier Shelf Expiration Date Model / Serial / Lot 7-13 Rise 8mm Cage Implanted:Qt y: 1 on 02/06/2018 by Shemar Small MD at [facility] Cage N/A: Spine Lumbar [employer] 193.001 / / 35mm Deangelo Implanted:Qt y: 1 on 02/06/2018 by Shemar Small MD at [facility] Nail/Deangelo N/A: Spine Lumbar [employer] MINIMALLY INVASIVE T [id number] / / 40mm Deangelo Implanted:Qt y: 1 on 02/06/2018 by Shemar Small MD at [facility] Nail/Deangelo N/A: Spine Lumbar [employer] MINIMALLY INVASIVE T [id number] / / 6.5 X 55mm Voyager Screw Implanted:Qt y: 1 on 02/06/2018 by Shemar Small MD at [facility] Screw N/A: Spine Lumbar [employer] MINIMALLY INVASIVE T [id number] / / 6.5 X 50mm Voyager Screw Implanted:Qt y: 1 on 02/06/2018 by Shemar Small MD at [facility] Screw N/A: Spine Lumbar [employer] MINIMALLY INVASIVE T [id number] / / 6.5 X 45mm Voyager Screw Implanted:Qt y: 2 on 02/06/2018 by Shemar Small MD at [facility] Screw N/A: Spine Lumbar [employer] MINIMALLY INVASIVE T [id number] / / Fibrinet Implanted:Qt y: 1 on 02/06/2018 by Shemar Small MD at [facility] Tissue N/A: Spine Lumbar Other 03/20/2018 [id number] / / [id number] Advance Directives * Full Code (Latest Code Status on File) Date Activated Date Inactivated Comments 02/06/2018 3:26 PM Care Teams Carpenters Helper Relationship Specialty Start Date End Date Billy Floyd MD [address] [id number] PCP - General Internal Medicine 01/30/18
--- OUTSIDE RECORDS SUMMARY | 2024-10-31 08:28 | XMS_ITS | Data Portability ---
Author Organization [facility], Main Office Address [address] [facility] [address] [place] [address] Care Team Providers Care Quality Assurance Group Leader Name Role Phone MAGGY FLOYD Primary Care Provider [facility] Referring Provider ALLEN RUBALCAVA Orthopedic Surgeon [phone] MARTHA PACE Chemical Operator JAKE BERNARD Hydrodynamics Teacher SHARON CASTANEDA Referring Provider [phone] JOSE TEMPLETON Orthopedic Surgeon JARAD RO Referring Provider ELADIA DUKE Phys. Med. & Rehab [phone] JJ DONATO Referring Provider [phone] OFE AMIN Referring Provider Assessment Encounter Date Assessment Date Assessment LastModified by Organization Details LastModified Time 01/08/2024 01/08/2024 This service was provided using telemedicine. Patient consented to video & audio visit Patient was located in the [facility]. Provider was located in the office. No other persons participated in the telemedicine visit except for the patient unless otherwise indicated here. {{}} Total time of visit was 25 minutes. [email or web address] Not available 01/08/2024 13:29:51 05/09/2024 05/09/2024 This service was provided using telemedicine. Patient consented to video & audio visit Patient was located in the [facility]. Provider was located in the office. No other persons participated in the telemedicine visit except for the patient unless otherwise indicated here. {{}} Total time of visit was 25 minutes. [email or web address] Not available 05/10/2024 08:50:33 Plan of Treatment Reminders Order Date Submit Date Provider Last Modified By Organization Details Last Modified Time Details Appointments None recorded. Lab vitamin D, 25-hydroxy, total, serum 2024 025 [facility] (Centralized Electronic Ordering - All Locations), Patient Can Go To The Location Of Their Choice, 18:05:52 BNP (B-type natriuretic peptide), serum or plasma 2024 025 [facility] (Centralized Electronic Ordering - All Locations), Patient Can Go To The Location Of Their Choice, 18:05:52 CMP, serum or plasma 2024 025 [facility] (Centralized Electronic Ordering - All Locations), Patient Can Go To The Location Of Their Choice, 18:05:51 CBC w/ auto diff 2024 025 [facility] (Centralized Electronic Ordering - All Locations), Patient Can Go To The Location Of Their Choice, 18:05:50 TSH, ultra-sensi tive, serum 2024 025 [facility] (Centralized Electronic Ordering - All Locations), Patient Can Go To The Location Of Their Choice, 18:05:52 CBC w/ auto diff 2023 024 [facility] (Centralized Electronic Ordering - All Locations), Patient Can Go To The Location Of Their Choice, 4 09:04:53 iron + total iron-bindin g capacity (TIBC), serum 2023 [facility] (Centralized Electronic Ordering - All Locations), Patient Can Go To The Location Of Their Choice, 09:04:52 ferritin, serum or plasma 2023 024 [facility] (Centralized Electronic Ordering - All Locations), Patient Can Go To The Location Of Their Choice, 09:04:52 Referral orthopedic surgeon referral - Ongoing L. inner thigh pain. 06/17/ 2024 06/17/2 024 [facility], [address], [place], [address], 10:34:58 Procedures None recorded. Surgeries None recorded. Imaging None recorded. Medication Orders calcium 600 mg (as carbonate)- vitamin D3 10 mcg (400 unit) tablet 2023 [facility], [address] [place], [address], 11:18:45 meloxicam 15 mg tablet 2023 [facility], [address] [place], [address], 15:19:34 Patient TargetsNo targets recorded. Patient Instructions Encounter Date Encounter Id Patient Instructions Last Modified By Organization Details Last Modified Time 05/07/2024 [id number] I have reviewed the note and agree with the assessment and plan of care. [email or web address] Not available 05/07/2024 11:42:02 05/09/2024 [id number] osteoporosis: care instructions [email or web address] Not available 05/10/2024 09:03:32 anemia: care instructions [email or web address] Not available 05/10/2024 09:04:49 At [facility] follow up visit, all current and discharge medications (OTC, herbal therapies, supplements) reviewed and reconciled with patient and or caregiver, including potential side effects, drug interactions, instructions, and the consequences of not taking medication. Reviewed potential barriers to medication adherence, such as side effects from medication or cost of medication. [email or web address] Not available 05/09/2024 15:17:45 Reason for Referral Orthopedic Surgeon Referral for Pain of left thigh Ongoing L. inner thigh pain. Referring Physician: Ilda Booker, Internal Medicine, Encounter Date: 01/08/2024 Results Created Date Observation Date Name Description Value Unit Range Abnormal Flag Note LastModifiedBy Organization Detail LastModifiedTime 10/08/1910/07/2024 CBC WITH DIFFE RENTI AL/PL ATELE T WBC 8.1 x10e3 /uL 3.4-10 .8 normal Not Available [facility] ([facility]) [address] [place], [address], 10/08/2024 18:05:50 10/08/19 25 10/07/2024 CBC WITH DIFFE RENTI AL/PL ATELE T RBC 4.54 x10e6 /uL 3.77-5 .28 normal Not Available [facility] ([facility]) [address] [place], [address], 10/08/2024 18:05:50 10/08/19 25 10/07/2024 CBC WITH DIFFE RENTI AL/PL ATELE T hemoglobin 13.5 g/dL 11.1-1 5.9 normal Not Available [facility] ([facility]) [address] [place], [address], 10/08/2024 18:05:50 10/08/19 25 10/07/2024 CBC WITH DIFFE RENTI AL/PL ATELE T hematocrit 40.2 % 34.0-4 6.6 normal Not Available [facility] ([facility]) [address] [place], [address], 10/08/2024 18:05:50 10/08/19 25 10/07/2024 CBC WITH DIFFE RENTI AL/PL ATELE T MCV 89 fL 79-97 normal Not Available [facility] ([facility]) [address] [place], [address], 10/08/2024 18:05:50 10/08/19 25 10/07/2024 CBC WITH DIFFE RENTI AL/PL ATELE T MCH 29.7 pg 26.6-3 3.0 normal Not Available [facility] ([facility]) [address] [place], [address], 10/08/2024 18:05:50 10/08/19 25 10/07/2024 CBC WITH DIFFE RENTI AL/PL ATELE T MCHC 33.6 g/dL 31.5-3 5.7 normal Not Available [facility] ([facility]) [address] [place], [address], 10/08/2024 18:05:50 10/08/19 25 10/07/2024 CBC WITH DIFFE RENTI AL/PL ATELE T RDW 13.3 % 11.7-1 5.4 Not Available [facility] ([facility]) [address] [place], [address], 10/08/2024 18:05:50 10/08/19 25 10/07/2024 CBC WITH DIFFE RENTI AL/PL ATELE T platelets 369 x10e3 /uL 150-45 0 normal Not Available [facility] ([facility]) [address] [place], [address], 10/08/2024 18:05:50 10/08/19 25 10/07/2024 CBC WITH DIFFE RENTI AL/PL ATELE T neutrophils 65 % not estab. normal Not Available [facility] ([facility]) [address] [place], [address], 10/08/2024 18:05:50 10/08/19 25 10/07/2024 CBC WITH DIFFE RENTI AL/PL ATELE T lymphs 22 % not estab. normal Not Available [facility] ([facility]) [address] [place], [address], 10/08/2024 18:05:50 10/08/19 25 10/07/2024 CBC WITH DIFFE RENTI AL/PL ATELE T monocytes 9 % not estab. normal Not Available [facility] ([facility]) [address] [place], [address], 10/08/2024 18:05:50 10/08/19 25 10/07/2024 CBC WITH DIFFE RENTI AL/PL ATELE T eos 2 % not estab. normal Not Available [facility] ([facility]) [address] [facility], [place], [address], 10/08/2024 18:05:50 10/08/19 25 10/07/2024 CBC WITH DIFFE RENTI AL/PL ATELE T basos 1 % not estab. normal Not Available [facility] ([facility]) [address] [facility], [place], [address], 10/08/2024 18:05:50 10/08/19 25 10/07/2024 CBC WITH DIFFE RENTI AL/PL ATELE T immature cells MACHINE II COREMAKER Not Available [facility] ([facility]) [address] [facility], [place], [address], 10/08/2024 18:05:50 10/08/19 25 10/07/2024 CBC WITH DIFFE RENTI AL/PL ATELE T neutrophils (absolute) 5.3 x10e3 /uL 1.4-7. 0 normal Not Available [facility] ([facility]) [address] [place], [address], 10/08/2024 18:05:50 10/08/19 25 10/07/2024 CBC WITH DIFFE RENTI AL/PL ATELE T lymphs (absolute) 1.8 x10e3 /uL 0.7-3. 1 normal Not Available [facility] ([facility]) [address] [place], [address], 10/08/2024 18:05:50 10/08/19 25 10/07/2024 CBC WITH DIFFE RENTI AL/PL ATELE T monocytes(ab solute) 0.7 x10e3 /uL 0.1-0. 9 normal Not Available [facility] ([facility]) [address] [place], [address], 10/08/2024 18:05:50 10/08/19 25 10/07/2024 CBC WITH DIFFE RENTI AL/PL ATELE T eos (absolute) 0.2 x10e3 /uL 0.0-0. 4 normal Not Available [facility] ([facility]) [address] [facility], [place], [address], 10/08/2024 18:05:50 10/08/19 25 10/07/2024 CBC WITH DIFFE RENTI AL/PL ATELE T baso (absolute) 0.1 x10e3 /uL 0.0-0. 2 normal Not Available [facility] ([facility]) [address] [facility], [place], [address], 10/08/2024 18:05:50 10/08/19 25 10/07/2024 CBC WITH DIFFE RENTI AL/PL ATELE T immature granulocytes 1 % not estab. Not Available [facility] ([facility]) [address] [facility], [place], [address], 10/08/2024 18:05:50 10/08/19 25 10/07/2024 CBC WITH DIFFE RENTI AL/PL ATELE T immature grans (abs) 0.1 x10e3 /uL 0.0-0. 1 Not Available [facility] ([facility]) [address] [place], [address], 10/08/2024 18:05:50 10/08/19 25 10/07/2024 CBC WITH DIFFE RENTI AL/PL ATELE T NRBC MACHINE II COREMAKER Not Available [facility] ([facility]) [address] [place], [address], 10/08/2024 18:05:50 10/08/19 25 10/07/2024 CBC WITH DIFFE RENTI AL/PL ATELE T hematology comments: MACHINE II COREMAKER Not Available [facility] ([facility]) [address] [place], [address], 10/08/2024 18:05:50 10/08/19 25 10/07/2024 COMP. METAB OLIC PANEL (14) glucose 108 mg/dL 70-99 above high normal Not Available [facility] ([facility]) [address] [place], [address], 10/08/2024 18:05:51 10/08/19 25 10/07/2024 COMP. METAB OLIC PANEL (14) BUN 18 mg/dL 8-27 normal Not Available [facility] ([facility]) [address] [place], [address], 10/08/2024 18:05:51 10/08/19 25 10/07/2024 COMP. METAB OLIC PANEL (14) creatinine 1.12 mg/dL 0.57-1 .00 above high normal Not Available [facility] ([facility]) [address] [place], [address], 10/08/2024 18:05:51 10/08/19 25 10/07/2024 COMP. METAB OLIC PANEL (14) eGFR 51 mL/mi n/1.7 3 >59 below low normal Not Available [facility] ([facility]) [address] [place], [address], 10/08/2024 18:05:51 10/08/19 25 10/07/2024 COMP. METAB OLIC PANEL (14) BUN/creatini ne ratio 16 12-28 normal Not Available [facility] ([facility]) [address] [facility] [place], [address], 10/08/2024 18:05:51 10/08/19 25 10/07/2024 COMP. METAB OLIC PANEL (14) sodium 139 mmol/ L 134-14 4 normal Not Available [facility] ([facility]) [address] [facility] [place], [address], 10/08/2024 18:05:51 10/08/19 25 10/07/2024 COMP. METAB OLIC PANEL (14) chloride 102 mmol/ L 96-106 normal Not Available [facility] ([facility]) [address] [facility] [place], [address], 10/08/2024 18:05:51 10/08/19 25 10/07/2024 COMP. METAB OLIC PANEL (14) carbon dioxide, total 19 mmol/ L 20-29 below low normal Not Available [facility] ([facility]) [address] [facility] [place], [address], 10/08/2024 18:05:51 10/08/19 25 10/07/2024 COMP. METAB OLIC PANEL (14) calcium 9.6 mg/dL 8.7-10 .3 normal Not Available [facility] ([facility]) [address] [facility] [place], [address], 10/08/2024 18:05:51 10/08/19 25 10/07/2024 COMP. METAB OLIC PANEL (14) protein, total 7.1 g/dL 6.0-8. 5 normal Not Available [facility] ([facility]) [address] [facility] [place], [address], 10/08/2024 18:05:51 10/08/19 25 10/07/2024 COMP. METAB OLIC PANEL (14) albumin 4.6 g/dL 3.8-4. 8 normal Not Available [facility] ([facility]) [address] [facility] [place], [address], 10/08/2024 18:05:51 10/08/19 25 10/07/2024 COMP. METAB OLIC PANEL (14) globulin, total 2.5 g/dL 1.5-4. 5 Not Available [facility] ([facility]) [address] [facility] [place], [address], 10/08/2024 18:05:51 10/08/19 25 10/07/2024 COMP. METAB OLIC PANEL (14) bilirubin, total 0.4 mg/dL 0.0-1. 2 normal Not Available [facility] ([facility]) [address] [facility] [place], [address], 10/08/2024 18:05:51 10/08/19 25 10/07/2024 COMP. METAB OLIC PANEL (14) alkaline phosphatase 128 IU/L 44-121 above high normal Not Available [facility] ([facility]) [address] [place], [address], 10/08/2024 18:05:51 10/08/19 25 10/07/2024 COMP. METAB OLIC PANEL (14) AST (SGOT) 19 IU/L 0-40 normal Not Available [facility] ([facility]) [address] [place], [address], 10/08/2024 18:05:51 10/08/19 25 10/07/2024 COMP. METAB OLIC PANEL (14) ALT (SGPT) 11 IU/L 0-32 normal Not Available [facility] ([facility]) [address] [place], [address], 10/08/2024 18:05:51 10/08/19 25 10/08/2024 COMP. METAB OLIC PANEL (14) potassium 4.4 mmol/ L 3.5-5. 2 normal Not Available [facility] ([facility]) [address] [place], [address], 10/08/2024 18:05:51 10/08/19 25 10/08/2024 VITAM IN D, 25-HY DROXY vitamin D, 25-hydroxy 25.3 NG/mL 30.0-1 00.0 below low normal Vitam in D defic iency has been defin ed by the Insti tute of Medic ine and an Endoc rine Socie ty pract ice guide line as a level of serum 25-OH vitam in D less than 20 ng/mL (1,2) . The Endoc rine Socie ty went on to furth er defin e vitam in D insuf ficie ncy as a level betwe en 21 and 29 ng/mL (2). 1. IOM (Inst itute of Medic ine). 2010. Dieta ry refer ence intak es for calci um and D. Deana nesbitt [place]: The [facility] . 2. Soila montalvo MF, Maribell salinas [place], Davy off-F nona i POSEY, et al. Evalu ation , treat ment, and preve ntion of vitam in D defic iency : an Endoc rine Socie ty clini pantera pract ice guide line. JCEM. 2010; 96(7) :1911 -30. Not Available [facility] ([facility]) [address] [facility], [place], [address], 10/08/2024 18:05:52 10/08/1910/08/2024 B-TYP E NATRI URETI C PEPTI DE B-type natriuretic peptide 14.7 pg/mL 0.0-10 0.0 Sieme ns AD[facility] XP metho dolog y Not Available [facility] ([facility]) [address] [facility], [place], [address], 10/08/2024 18:05:52 10/08/1910/08/2024 TSH RFX ON ABNOR MAL TO FREE T4 TSH 4.210 uIU/m L 0.450- 4.500 normal Not Available [facility] ([facility]) [address] [facility], [place], [address], 10/08/2024 18:05:52 04/17/2004/17/2024 XR, hip + pelvi s, unila teral No observ ation record ed. [facility] (Medical Records) [address] [place], [address], 2024 15:49:57 04/18/2004/18/2024 XR, hip, unila teral No observ ation record ed. [facility] (Medical Records) [address] [place], [address], 04/18/2024 09:20:48 04/19/20 24 04/19/2024 XR, pelvi s No observ ation record ed. [facility] (Medical Records) [address] [facility], [place], [address], 04/20/2024 10:54:01 07/29/19 25 07/26/2024 US, duple x, venou s, extre mity, compl ete No observ ation record ed. [facility] [address] [facility] [address], [place], [address], 07/29/2024 09:27:26 10/11/19 25 10/10/2024 XR, chest , 2 view Chest 2 Views Fronta l and Lat Reason : dyspne a COMPAR LISA: 01/26/20 18 FINDIN GS: LINES AND TUBES: None. LUNGS AND PLEURA : Clear lungs. Normal pulmon clay vascul arity. No pleura l effusi on. No pneumo thorax . HEART, MEDIAS TINUM AND ZEE: Heart is normal in size. Normal medias tinal and hilar contou r. BONES AND SOFT TISSUE S: No acute abnorm ality. Epigas tric/l eft upper quadra nt surger y. IMPRES BLANE: Normal chest. WSN: [id number] Orderi ng Physic meghna: Kurtis Booker ia Dictat ed By: Rory Bhatti MD Dictat ed Date/T nataliya: 5:04 pm Review ed By: Rory Bhatti MD Signed By: Rory Bhatti MD Signed Date/T nataliya: 5:04 pm Transc ribed By: KAN Transc ribed Date/T nataliya: 5:02 pm Patien t Class: Outpat ient [email or web address] [facility] (Outpt Imaging) [address], [place], [address], 10/10/2024 19:54:30 10/11/19 25 10/10/2024 imagi ng/di agnos tic resul t No observ ation record ed. [facility] [address], [place], [address], 10/11/2024 10:44:14 Result Notes None recorded. Problems Name Problem SNOMED Code Status Onset Date Resolution Date Notes Provider Name and Address Organization Details Recorded Time Abdomina l pain 01291077 Completed 201102/04/2014 RECORDED 05/16/20 12 9:09AM BY ARIANA CARRION MA, ANNOTATI ON/ADDEN DUM BRANDEN Martinez [address] [facility] [address], [place], [address], [facility] 2 09:55:02 Allergic rhinitis 08277221 Active 2013 [place] Torres, [facility] 8 08:50:35 Anxiety state 047167625 Active 2013 SUZ[place] Torres, [facility] 8 08:49:46 Patient status finding 099210182 Completed 201307/01/2014 RECORDED 08/06/19 14 9:46AM BY KATTY JO I, OFFICE VISIT Maggy kohli MD [address] [facility] [address], [place], [address], [facility] 6 06:40:11 Urinary bladder problem 662656124 Active 2013 SUZ[place] Torres, [facility] 8 08:50:06 Elevated blood-pr essure reading without diagnosi s of hyperten blane 539501979 Active 2013 [place] Torres, [facility] 8 08:50:30 Screenin g for malignan t neoplasm of breast Completed 201102/04/2014 RECORDED 05/16/20 12 9:09AM BY ARIANA CARRION MA, ANNOTATI ON/ADDEN DUM Maggy kohli MD [address] [facility] [address], [place], [address], [facility] 6 06:40:11 Screenin g for malignan t neoplasm of cervix Completed 201102/04/2014 RECORDED 05/16/20 12 9:09AM BY ARIANA CARRION MA, ISHA ON/FRANK kohli MD [address] [facility] [address], [place], [address], [facility] 6 06:40:11 Chest pain [id number] Completed 201002/04/2014 DATE: 02/05/20 11; IMPRESSI ON: L ANTERIOR CHEST WALL PAIN FOLLOWIN G PULLING INJURY WHILE WEEDING YESTERDA Y. SUSPECT STRAIN OF INTERCOS TALS, PT ELECTS FOR XRAY. REST, HEAT/ICE , NSAID DURING DAY AND NARCOTIC MED AT NIGHT PRN. WILL CONTACT PT WITH RESULT WHEN AVAIL.; RECORDED 05/16/20 12 9:09AM BY ARIANA CARRION MA, ANNOTMYCHAL ON/FRANK kohli MD [address] [facility] [address], [place], [address], [facility] 6 06:40:11 Degenera tion of interver tebral disc 90042082 Completed 201102/04/2014 RECORDED 05/16/20 12 9:09AM BY ARIANA CARRION MA, ISHA ON/FRANK kohli MD [address] [facility] [address], [place], [address], [facility] 6 06:40:11 History of depressi on 596848134 Completed 201310/10/2014 RECORDED 08/06/19 14 9:43AM BY KATTY JO I, OFFICE VISIT Maggy kohli MD [address] [facility] [address], [place], [address], [facility] 6 06:40:11 Depressi ve disorder 44877980 Completed 201202/04/2014 RECORDED 08/09/19 13 4:37PM BY MOOKIE YOU MA, ANNOTATI ON/ADDEN DUM Maggy kohli MD [address] [facility] [address], [place], [address], [facility] 6 06:40:10 Dizzines s and giddines s 991270159 Completed 200702/04/2014 RESOLVED DATE: 11/05/19 08; RECORDED 11/05/19 08 5:56PM BY MAGGY CHANDRA MD, ANNOTATI ON/ADDEN DUM Maggy kohli MD [address] [facility] [address], [place], [address], [facility] 6 06:40:11 Dysphagi a [id number] Completed 201102/04/2014 RECORDED 05/16/20 12 9:09AM BY ARIANA CARRION MA, ANNOTATI ON/ADD Maggy kohli MD [address] [facility] [address], [place], [address], [facility] 6 06:40:11 Dysuria 87113173 Completed 200702/04/2014 RESOLVED DATE: 11/05/19 08; RECORDED 11/05/19 08 5:56PM BY MAGGY CHANDRA MD, ANNOTATI ON/ Maggy kohli MD [address] [facility] [address], [place], [address], [facility] 6 06:40:11 External hemorrho ids 99879585 Active 2013 [place] Torres, [facility] 8 08:49:52 Gastroes ophageal reflux disease 714817817 Active 2013 [place] Torres, [facility] 8 08:49:49 Adult health examinat ion Completed 201202/04/2014 RECORDED 11/23/19 13 1:10PM BY KATTY JO I, ANNOTATI ON/ DUM Maggy kohli MD [address], [place], [address], [facility] 6 06:40:11 Adult health examinat ion Completed 201307/01/2014 RECORDED 08/06/19 14 10:23AM BY ESTUARDO FERNANDEZ, HISTORIC AL SUMMARY Maggy kohli MD [address], [place], [address], [facility] 6 06:40:11 General examinat ion of patient Completed 200702/04/2014 RECORDED 11/05/19 08 5:57PM BY MAGGY CHANDRA MD, ANNOTATI ON/ Maggy kohli MD [address], [place], [address], [facility] 6 06:40:11 Hypercho lesterol emia 58428070 Completed 201302/21/2017 RECORDED 08/06/19 14 9:43AM BY KATTY JO I, OFFICE VISIT Maggy kohli MD [address], [place], [address], [facility] 7 13:46:36 Insomnia 838316310 Active 2013 Mookie harris MA null, [facility] 8 08:50:24 Kidney disease 28805585 Completed 201310/10/2014 RECORDED 08/06/19 14 9:43AM BY KATTY JO I, OFFICE VISIT Maggy kohli MD [address], [place], [address], [facility] 6 06:40:11 Laborato ry procedur e performe d 186282748 Completed 201307/01/2014 RECORDED 09/13/19 14 11:38AM BY DRISS FERRER, LAB REQ Maggy kohli MD [address] [address], [place], [address], [facility] 6 06:40:11 Lipoma of skin and subcutan eous tissue of face 21539382 Completed 201202/04/2014 RECORDED 08/01/19 13 9:48AM BY MAGGY CHANDRA MD, ANNOTATI ON/ADDEN DUM Maggy kohli MD [address] [address], [place], [address], [facility] 6 06:40:10 Malaise and fatigue 084635036 Completed 201202/04/2014 RECORDED 11/23/19 13 1:10PM BY KATTY JO I, ANNOTATI ON/ADDEN DUM [place] Torres, [facility] 8 08:50:10 Postmeno pausal state 30051435 Active 2013 IMPRESSI ON: MANY OF HER SX (FATIGUE , HAIR CHANGES, SKIN DRYNESS, VAGINAL DRYNESS, COLD INTOLERA NCE) CAN BE RELATED TO MENOPAUS E. 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 6 17:42:58 Osteopor osis 96116452 Active 2013 Mookie harris [place] null, [facility] 8 08:50:38 Sign or symptom of the urinary system 07448943 Completed 200702/04/2014 RESOLVED DATE: 11/05/19 08; KULWINDER ON: D/C DETROL SAMPLES OF ENABLEX FOR TRIAL; RECORDED 11/05/19 08 5:56PM BY MAGGY CHANDRA MD, ANNOTATI ON/ADDEN DUM Maggy kohli MD [address] [facility] [address], [place], [address], [facility] 6 06:40:11 Hand joint pain 888972726 Completed 201102/04/2014 RECORDED 05/16/20 12 9:09AM BY ARIANA CARRION MA, ISHA ON/ADDEN WAQAS kohli MD [address] [facility] [address], [place], [address], [facility] 6 06:40:11 Knee pain Completed 201102/04/2014 RECORDED 05/16/20 12 9:09AM BY ARIANA CARRION MA, ISHA ON/FRANK kohli MD [address] [facility] [address], [place], [address], [facility] 6 06:40:11 Joint pain in ankle and foot Completed 201102/04/2014 RECORDED 05/16/20 12 9:09AM BY ARIANA CARRION MA, ISHA ON/ADDJUAN FRANCISCO kohli MD [address] [facility] [address], [place], [address], [facility] 6 06:40:11 Tobacco user [id number] Completed 201307/01/2014 RECORDED 02/05/20 14 9:01AM BY KATTY JO I, OFFICE VISIT Maggy kohli MD [address], [place], [address], [facility] 6 06:40:10 History of clinical finding in subject [id number] Completed 201307/01/2014 RECORDED 08/06/19 14 9:44AM BY KATTY JO I, OFFICE VISIT Maggy kohli MD [address], [place], [address], [facility] 6 06:40:11 Primary malignan t neoplasm of kidney [id number] Active 2005 Maggy kohli MD [address], [place], [address], [facility] 1 10:56:21 Dyspnea [id number] Completed 201302/04/2014 IMPRESSI ON: NO EVIDENCE FOR HEART OR LUNG DS. SHE WILL USE OTC LORATIDI NE IF HER SX WORSEN.; RECORDED 08/06/19 14 7:03AM BY MERRITT GARYATI ON/ADDEN DUM Krishan Dominique [facility] 5 11:52:26 Screenin g for malignan t neoplasm of colon Completed 201102/04/2014 RECORDED 05/16/20 12 9:09AM BY ARIANA CARRION MA, ANNOTATI ON/ADDEN DUM Maggy kohli MD [address], [place], [address], [facility] 6 06:40:11 Conjunct ival hemorrha ge [id number] Completed 200702/04/2014 RESOLVED DATE: 11/05/19 08; RECORDED 11/05/19 08 5:56PM BY MAGGY CHANDRA MD, ANNOTATI ON/ADDEN DUM Maggy kohli MD [address] [facility] [address], [place], [address], [facility] 6 06:40:10 Suicide attempt Active 2013 Mookie harris [place] null, [facility] 8 08:50:40 Administ ration of diphther ia and tetanus vaccine Completed 201202/04/2014 RECORDED 11/23/19 13 1:10PM BY KATTY JO I, ISHA ON/ADDEN WAQAS kohli MD [address] [facility] [address], [place], [address], [facility] 6 06:40:11 Dermatop hytosis of the body Completed 201102/04/2014 RECORDED 07/20/20 12 11:31AM BY JORGE WILEY MA, ISHA ON/FRANK kohli MD [address] [address], [place], [address], [facility] 6 06:40:10 Urge incontin ence of urine 22491670 Completed 201102/04/2014 RECORDED 05/16/20 12 9:09AM BY ARIANA CARRION MA, ISHA ON/FRANK kohli MD [address] [address], [place], [address], [facility] 6 06:40:11 Urinary incontin ence 172071230 Active 2013 Mookie harris [place] null, [facility] 8 08:50:14 Urinary tract infectio us disease 80477384 Completed 200702/04/2014 RESOLVED DATE: 11/05/19 08; RECORDED 11/05/19 08 5:57PM BY MAGGY CHANDRA MD, ISHA ON/FRANK kohli MD [address] [address], [place], [address], [facility] 6 06:40:11 Benign paroxysm al position al vertigo [id number] Completed 201202/04/2014 IMPRESSI ON: SHE WILL TRY EXERCISE S AND IF THE VERTIGO PERSISTS SHE WILL CALL AND WE WILL DO A REFERRAL TO [facility].; RECORDED 08/01/19 13 9:48AM BY MAGGY CHANDRA MD, ANNOTATI ON/ADDEN DUM Maggy kohli MD [address] [facility] [address], [place], [address], [facility] 6 06:40:10 Abdomina l pain 82950052 Completed 201103/03/2014 RECORDED 05/16/20 12 9:09AM BY ARIANA CARRION MA, MERRITTATI ON/ADDEN DUM Nancie Dumont [facility] [address] [facility] [address], [place], [address], [facility] 2 09:55:02 Anxiety state [id number] Completed 201303/03/2014 RECORDED 02/05/20 14 7:08AM BY ISHA GARY ON/ADDEN DUM SUZY Torres, [facility] 8 08:49:46 Patient status finding [id number] Completed 201303/03/2014 RECORDED 02/05/20 14 7:07AM BY ISHA GARY ON/ADDEN WAQAS kohli MD [address] [facility] [address], [place], [address], [facility] 6 06:40:11 Urinary bladder problem 896409210 Completed 201303/03/2014 RECORDED 02/05/20 14 7:08AM BY ISHA GARY ON/ADDEN WAQAS harris [place] null, [facility] 8 08:50:06 Screenin g for malignan t neoplasm of breast Completed 201103/03/2014 RECORDED 05/16/20 12 9:09AM BY ARIANA CARRION MA, ANNOTATI ON/ADDJUAN FRANCISCO kohli MD [address] [facility] [address], [place], [address], [facility] 6 06:40:11 Screenin g for malignan t neoplasm of cervix Completed 201103/03/2014 RECORDED 05/16/20 12 9:09AM BY ARIANA CARRION MA, ANNOTATI ON/ADDJUAN FRANCISCO kohli MD [address] [facility] [address], [place], [address], [facility] 6 06:40:11 Chest pain 78913992 Completed 201003/03/2014 DATE: 02/05/20 11; IMPRESSI ON: L ANTERIOR CHEST WALL PAIN FOLLOWIN G PULLING INJURY WHILE WEEDING YESTERDA Y. SUSPECT STRAIN OF INTERCOS TALS, PT ELECTS FOR XRAY. REST, HEAT/ICE , NSAID DURING DAY AND NARCOTIC MED AT NIGHT PRN. WILL CONTACT PT WITH RESULT WHEN AVAIL.; RECORDED 05/16/20 12 9:09AM BY ARIANA CARRION MA, ANNOTATI ON/FRANK kohli MD [address] [facility] [address], [place], [address], [facility] 6 06:40:11 Reduced libido 9241184 Active 2013 IMPRESSI ON: REFERRAL TO ENDO FOR FURTHER EVALUATI ON Mookie harris [place] null, [facility] 8 08:50:42 Degenera tion of interver tebral disc [id number] Completed 201103/03/2014 RECORDED 05/16/20 12 9:09AM BY ARIANA CARRION MA, ISHA ON/FRANK kohli MD [address], [place], [address], [facility] 6 06:40:11 History of depressi on [id number] Completed 201303/03/2014 RECORDED 02/05/20 14 7:08AM BY KATTY JO I, ANNOTATI ON/ADDEN DUM Maggy kohli MD [address] [facility] [address], [place], [address], [facility] 6 06:40:11 Depressi ve disorder 94400519 Completed 201203/03/2014 RECORDED 08/09/19 13 4:37PM BY MOOKIE YOU MA, ANNOTATI ON/ADDEN DUM Maggy kohli MD [address] [facility] [address], [place], [address], [facility] 6 06:40:10 Dizzines s and giddines s 793071613 Completed 200703/03/2014 RESOLVED DATE: 11/05/19 08; RECORDED 11/05/19 08 5:56PM BY MAGGY CHANDRA MD, ANNOTATI ON/ADDEN DUM Maggy kohli MD [address] [facility] [address], [place], [address], [facility] 6 06:40:11 Dysphagi a 33797699 Completed 201103/03/2014 RECORDED 05/16/20 12 9:09AM BY ARIANA CARRION MA, ANNOTATI ON/ADDEN DUM Maggy kohli MD [address] [facility] [address], [place], [address], [facility] 6 06:40:11 Dysuria 65107388 Completed 200703/03/2014 RESOLVED DATE: 11/05/19 08; RECORDED 11/05/19 08 5:56PM BY MAGGY CHANDRA MD, ANNOTATI ON/ADDEN DUM Maggy kohli MD [address], [place], [address], [facility] 6 06:40:11 External hemorrho ids [id number] Completed 201303/03/2014 RECORDED 02/05/20 14 7:07AM BY MERRITT GARYATI ON/ADDEN DUM [facility] 8 08:49:52 Gastroes ophageal reflux disease 580564038 Completed 201303/03/2014 RECORDED 02/05/20 14 7:08AM BY ISHA GARY ON/ADDEN DUM [facility] 8 08:49:49 Adult health examinat ion Completed 201203/03/2014 RECORDED 11/23/19 13 1:10PM BY ISHA GARY ON/ADDEN DUM Maggy kohli MD [address], [place], [address], [facility] 6 06:40:11 General examinat ion of patient Completed 200703/03/2014 RECORDED 11/05/19 08 5:57PM BY MAGGY CHANDRA MD, ISHA ON/ADDEN WAQAS kohli MD [address] [facility] [address], [place], [address], [facility] 6 06:40:11 Hypercho lesterol emia 18581674 Completed 201303/03/2014 RECORDED 02/05/20 14 7:08AM BY ISHA GARY ON/ADDEN WAQAS kohli MD [address] [facility] [address], [place], [address], [facility] 7 13:46:36 Kidney disease 41996103 Completed 201303/03/2014 RECORDED 02/05/20 14 7:08AM BY KATTY JO I ANNOTATI ON/ADDEN WAQAS kohli MD [address] [facility] [address], [place], [address], [facility] 6 06:40:11 Laborato ry procedur e performe d [id number] Completed 201303/03/2014 RECORDED 02/05/20 14 7:07AM BY KATTY JO I ANNOTATI ON/ADDEN WAQAS kohli MD [address] [facility] [address], [place], [address], [facility] 6 06:40:11 Lipoma of skin and subcutan eous tissue of face 69018577 Completed 201303/03/2014 RECORDED 02/05/20 14 7:07AM BY MERRITT GARYATI ON/ADDJUAN FRANCISCO kohli MD [address] [facility] [address], [place], [address], [facility] 6 06:40:10 Malaise and fatigue 374444401 Active 2013 IMPRESSI ON: THIS MAY BE RELATED TO HER DEPRESSI ON AND WELL TO HORMONAL CHANGES. WE WILL REFER HER TO ENDO FOR FURTHER EVALUATI ON AND POSSIBLE HORMONE REPLACEM ENT. SUYZ Torres, [facility] 8 08:50:10 Postmeno pausal state [id number] Completed 201303/03/2014 IMPRESSI ON: MANY OF HER SX (FATIGUE , HAIR CHANGES, SKIN DRYNESS, VAGINAL DRYNESS, COLD INTOLERA NCE) CAN BE RELATED TO MENOPAUS E. SHE IS WORKING WITH HER DOG BEAUTICIAN ON THIS.; RECORDED 02/05/20 14 7:07AM BY KATTY JO I ANNOTATI ON/ADDEN DUM SUZY Torres [facility] 8 08:50:03 Oophorec alec Completed 201303/03/2014 RIGHT; RECORDED 02/05/20 14 7:08AM BY KATTY JO I, ANNOTATI ON/ADDEN DUM Mookie harris MA [facility] 8 08:49:59 Sign or symptom of the urinary system 73383132 Completed 200703/03/2014 RESOLVED DATE: 11/05/19 08; IMPRESSI ON: D/C DETROL SAMPLES OF ENABLEX FOR TRIAL; RECORDED 11/05/19 08 5:56PM BY MAGGY CHANDRA MD, MERRITTATI ON/ADDEN DUM Maggy kohli MD [address] [address], [place], [address], [facility] 6 06:40:11 Hand joint pain 605187777 Completed 201103/03/2014 RECORDED 05/16/20 12 9:09AM BY ARIANA CARRION MA, ANNOTATI ON/ADDEN DUM Maggy kohli MD [address] [address], [place], [address], [facility] 6 06:40:11 Knee pain Completed 201103/03/2014 RECORDED 05/16/20 12 9:09AM BY ARIANA CARRION MA, ANNOTATI ON/ADDJUAN FRANCISCO DUM Maggy kohli MD [address] [address], [place], [address], [facility] 6 06:40:11 Joint pain in ankle and foot Completed 201103/03/2014 RECORDED 05/16/20 12 9:09AM BY ARIANA CARRION MA, ANNOTATI ON/FRANK kohli MD [address] [facility] [address], [place], [address], [facility] 6 06:40:11 Dyspnea 456565805 Completed 201303/03/2014 IMPRESSI ON: NO EVIDENCE FOR HEART OR LUNG DS. SHE WILL USE OTC LORATIDI NE IF HER SX WORSEN.; RECORDED 08/06/19 14 7:03AM BY ISHA GARY ON/ADDEN DUM [facility] 5 11:52:26 Screenin g for malignan t neoplasm of colon Completed 201103/03/2014 RECORDED 05/16/20 12 9:09AM BY ARIANA CARRION MA, ISHA ON/ADD DUM Maggy kohli MD [address] [facility] [address], [place], [address], [facility] 6 06:40:11 Conjunct ival hemorrha 10973005 Completed 200703/03/2014 RESOLVED DATE: 11/05/19 08; RECORDED 11/05/19 08 5:56PM BY MAGGY CHANDRA MD, ISHA ON/ WAQAS kohli MD [address] [facility] [address], [place], [address], [facility] 6 06:40:10 Administ ration of diphther ia and tetanus vaccine Completed 201203/03/2014 RECORDED 11/23/19 13 1:10PM BY ISHA GARY ON/ WAQAS kohli MD [address] [facility] [address], [place], [address], [facility] 6 06:40:11 Dermatop hytosis of the body Completed 201103/03/2014 RECORDED 07/20/20 12 11:31AM BY JORGE WILEY MA, ISHA ON/CHARLA WAQAS kohli MD [address] [facility] [address], [place], [address], [facility] 6 06:40:10 Urge incontin ence of urine 75082689 Completed 201103/03/2014 RECORDED 05/16/20 12 9:09AM BY ARIANA CARRION MA, MERRITTATI ON/ Maggy kohli MD [address] [address], [place], [address], [facility] 6 06:40:11 Urinary tract infectio us disease 61666769 Completed 200703/03/2014 RESOLVED DATE: 11/05/19 08; RECORDED 11/05/19 08 5:57PM BY MAGGY CHANDRA MD, ANNOTATI ON/ADD DUM Maggy kohli MD [address] [address], [place], [address], [facility] 6 06:40:11 Benign paroxysm al position al vertigo 026857067 Completed 201303/03/2014 IMPRESSI ON: SHE WILL TRY EXERCISE S AND IF THE VERTIGO PERSISTS SHE WILL CALL AND WE WILL DO A REFERRAL TO [facility].; RECORDED 02/05/20 14 7:07AM BY KATTY JO I, ISHA ON/ Maggy kohli MD [address] [address], [place], [address], [facility] 6 06:40:10 Mass of body structur e 162411418 Completed 10/10/2014 Maggy kohli MD [address] [address], [place], [address], [facility] 6 06:40:11 Carpal tunnel syndrome 22416519 Active Maggy kohli MD [address] [address], [place], [address], [facility] 6 06:40:10 Spinal stenosis of lumbar region 76591591 Active [facility] to Dr Raza because she failed conserva tive treatmen t. Had surgery in [place] by Dr Staci kohli MD [address] [facility] [address], [facility] [place], [place], 9, [facility] 8 10:15:37 Lumbar spondylo sis 494458239 Active Followed by Dr Sanjeev kohli MD [address] [facility] [address], [facility] [place], [place], 9, [facility] 6 06:40:10 Osteoart hritis of knee 274891824 Active Followed by Dr Sanjeev kohli MD [address] [address], [facility] [place], [place], 9, 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 6 06:40:10 Scoliosi s of lumbar spine 773082431 Active Followed by Dr Sanjeev kohli MD [address] [address], [facility] [place], [place], 9, [facility] 6 06:40:10 Pes anserinu s bursitis 82220713 Active Followed by Dr Snajeev kohli MD [address] [address], [facility] [place], [place], 9, [facility] 6 06:40:10 Degenera tion of lumbar interver tebral disc 30030752 Active Followed by Dr Sanjeev kohli MD [address] [address], [facility] [place], [facility] 6 06:40:10 Osteopen ia 335622753 Active Maggy kohli MD [address] [address], [facility] [place], [facility] 6 17:42:58 Pain in left lower limb 928822160 Active 2016 Seen by [facility]; started September 2016 Maggy kohli MD [address], [place], [address], [facility] 7 21:02:07 Shoulder pain 07685084 Active 2016 Seen by [facility]; started September 2016 Maggy kohli MD [address], [place], [address], [facility] 7 21:02:34 Hyperlip idemia 32330300 Active 2016 Maggy kohli MD [address], [place], [address], [facility] 7 13:48:42 Pannicul itis 79022367 Active [address] scan done September 2018 w/o change. Maggy kohli MD [address], [place], [address], [facility] 9 08:31:41 Solitary nodule of lung 582394745 Active 2018 RML; will repeat in 1 year given smoking hx. Maggy kohli MD [address], [place], [address], [facility] 9 08:33:06 Pain of left knee region 95974604008 4109 Active 2021 Followed by [facility]; injected . Maggy kohli MD [address], [place], [address], [facility] 2 16:16:44 Piriform is syndrome 640242877 Active 2021 Nancie Dumont [facility] [address], [place], [address], [facility] 2 14:52:33 Sacroili ac joint pain 390170090 Active 2021 Nancie Dumont, [facility] [address] [facility] [address], [place], [address], [facility] 2 14:53:26 Left lower quadrant pain 519134502 Active 2021 Nancie Dumont, [facility] [address] [address], [facility] [place], [address], [facility] 2 15:12:41 Abdomina l pain 49750518 Active 2021 RECORDED 05/16/20 12 9:09AM BY ARIANA CARRION MA, ANNOTATI ON/ADDEN DUM Nancie Dumont, [address] [address], [place], [address], [facility] 2 09:55:02 Lumbosac ral radiculi tis 17088846 Active [address] Best. Currentl y treated with meds. Also seen by [facility] and injected . Maggy kohli MD [address] [address], [place], [address], [facility] 3 07:41:33 Pain of left thigh 64294985391 9105 Active 2023 Gerardo frost, [facility] 4 16:46:52 Pain of left hip joint 38331191916 9100 Active 2023 Seen by [facility] and hip replacem ent recommen ded. Maggy kohli MD [address] [address], [place], [address], [facility] 4 14:11:10 Fracture of neck of femur 6230126 Active 2023 Maggy kohli MD [address] [address], [place], [address], [facility] 4 09:20:04 Dyspnea 769435516 Active 2024 IMPRESSI ON: NO EVIDENCE FOR HEART OR LUNG DS. SHE WILL USE OTC LORATIDI NE IF HER SX WORSEN.; RECORDED 08/06/19 14 7:03AM BY ISHA GARY ON/ADDEN DUM Krishan frost, [facility] 5 11:52:26 Vitamin D deficien cy 74117473 Active 2024 Krishan frost, [facility] 5 12:01:57 Fatigue 37968418 Active 2024 Krishan frost, [facility] 5 12:22:31 Problem Notes None recorded. Procedures Surgical History Date Name Laterality Status Provider Name and Address Organization Details Recorded Time 04/19 revision of hip arthroplasty completed Stephanie Thakur [facility] 4 12:51:04 04/17 Total hip arthroplasty completed Stephanie Thakur [facility] 4 09:50:22 06/07 Advanced Care Planning completed Maggy Floyd MD [address] [facility] [address], [place], [address] , [facility] 3 10:02:52 08/08 injection into lumbar epidural space completed Stephanie Thakur [facility] 3 11:19:32 02/28 arthroscopic knee operation completed Kareem wilkins MA [facility] 2 14:24:10 04/20 Date of Last Colonoscopy completed Janna Garcia [facility] 1 11:25:32 04/20 Colonoscopy completed April Fernandez [facility] 1 15:10:14 04/20 esophagogastroduodenoscopy completed iRna Fernandez [facility] 1 15:10:37 08/13 Six-Item Cognitive Test completed Juliana Ng MA [facility] 1 10:31:00 06/18 Mini-Cog Test completed Katty Mansfield [facility] 9 14:21:34 04/05 Mini-Cog Test completed Katty Mansfield [facility] 8 10:48:47 02/02 decompression of lumbar spine completed Mookie wilkins MA [facility] 2 14:14:37 12/20 Epidurography completed Tisha Ball [facility] 8 13:36:59 05/03 Most Recent Mammogram completed Melanie Urbano [facility] 7 14:25:58 05/03 Mammogram screening completed Mookie wilkins MA [facility] 8 10:02:26 02/21 Fall Risk Assessment completed Katty Mansfield [facility] 7 13:20:20 02/21 Mini-Cog Test completed Katty Mansfield [facility] 7 13:20:30 01/02 Hydrocortisone acetate inj completed Katty Mansfield [facility] 7 11:46:08 10/09 Fall Risk Assessment completed Katty Mansfield [facility] 5 11:21:42 10/09 Mini-Cog Test completed Katty Mansfield [facility] 5 11:21:42 04/17 Cancer Surgery completed Katty Mansfield [facility] 8 10:38:08 07/24 Removal kidney open radical completed Kareem wilkins MA [facility] 8 10:02:10 12/22 Hysterectomy completed Katty Mansfield [facility] 8 10:38:08 07/24 Repair bladder defect completed Mookie wilkins MA [facility] 8 10:01:47 07/24 Breast Biopsy completed Katty Mansfield [facility] 5 11:21:42 02/22 Tubal Ligation completed Katty Mansfield [facility] 8 10:38:08 07/11 Appendectomy completed Katty Mansfield [facility] 8 10:38:08 Removal of ovary(s) completed Jere wilkins MA [facility] 8 10:02:41 Imaging Results Imaging Date Name Status LastModified by Organiz ation Details LastModified Time 2024 XR, hip + pelvis, unilateral completed [facility] (Medical Records) [address] [place], [address], 2024 15:49:57 04/18/2024 XR, hip, unilateral completed [facility] (Medical Records) [address] [place], [address], 04/18/2024 09:20:48 04/19/2024 XR, pelvis completed [facility] (Medical Records) [address] [place], [address], 04/20/2024 10:54:01 07/26/2024 US, duplex, venous, extremity, complete completed [facility] [address] [address], [place], [address], 07/29/2024 09:27:26 10/10/2024 XR, chest, 2 view completed [email or web address] (Outpt Imaging) [address], [place], [address], 10/10/2024 19:54:30 10/10/2024 imaging/diagnos tic result completed [facility] [address], [place], [address], 10/11/2024 10:44:14 Procedure Notes None recorded. Medical Equipment None Reported. Allergies Allergen ID Allergen Name Allergen Category Reaction Reaction Severity Criticality Documentation Date Start Date Code Code System Note Provider Name and Address Organization Details Recorded Time 71 Sporanox medicatio n anaphylax is Not available Not available 02/04/20142013 6 RxNorm Lucita Guzman MA [facility] 15:59:28 Medications Name Sig Start Date Stop Date Status Note LastModified by Organization Details LastModified Time bupropion hcl xl 300 mg tb24 active Not Available Not Available Not Available vesicare tab 5mgvesica re active Not Available Not Available Not Available fluoxetin e cap 20mgfluox etine hcl active Not Available Not Available No t Available fluoxetin e hcl 20 mg caps active Not Available Not Available Not Available vesicare 5 mg tabs active Not Available Not Available No t Available omeprazol e 20 mg cpdr active Not Available Not Available Not Available alendrona te tab 70mgalend ronate sodium active Not Available Not Available Not Available bupropion tab 150mg srbupropi on hcl sr active Not Available Not Available No t Available bupropn hcl tab 300mg xlbupropi on hcl xl active Not Available Not Available No t Available omeprazol e cap 20mgomepr azole active Not Available Not Available Not Available zolpidem tab 5mgzolpid em tartrate active Not Available Not Available Not Available amoxicill in cap 500mgamox icillin active Not Available Not Available Not Available zolpidem tartrate 5 mg tabs active Not Available Not Available No t Available alendrona te sodium 70 mg tabs active Not Available Not Available Not Available fluoxetin e 40 mg capsule TAKE ONE CAPSULE BY MOUTH EVERY DAY 2024 active Not Available Not Available Not Avai lable cyclobenz aprine 10 mg tablet Take 1 tablet 3 times a day by oral route as directed for 10 days. 06/14 completed Not Available Not Available Not Available amoxicill in 500 mg capsule active Not Available Not Available Not Available Inderal LA 80 mg capsule,e xtended release DAILY 10/30 completed RECORDED 10/31/19 09 12:57PM BY MOOKIE YOU MA, OFFICE VISIT; Not Available Not Available Not Available acetamino phen 325 mg tablet Take 3 tablets 3 times a day by oral route as directed for 21 days. 04/05 completed Not Available Not Available Not Available prednison e 10 mg tablet Take 1 tablet every day by oral route with meals for 3 days. 02/22 completed Not Available Not Available Not Available aspirin 325 mg tablet Take 1 tablet twice a day by oral route as directed . 10/07 completed Not Available Not Available Not Available Senna Lax 8.6 mg tablet Take 2 tablets twice a day by oral route as needed. 03/29 completed Not Available Not Available Not Available tolterodi ne ER 4 mg capsule,e xtended release 24 hr QD 10/30 completed RECORDED 10/31/19 09 8:56AM BY MOOKIE YOU MA, OFFICE VISIT; Not Available Not Available Not Available meloxicam 15 mg tablet Take 1 tablet every day by oral route as directed for 30 days. 05/09 completed Not Available Not Available Not Available ondansetr on HCl 4 mg tablet TAKE 1 TABLET BY MOUTH EVERY 6 TO 8 HOURS NEEDED FOR NAUSEA DIRECTED 04/12 completed Not Available Not Available Not Available alendrona te 70 mg tablet TAKE 1 TABLET BY MOUTH ONCE WEEKLY 09/27 completed Not Available Not Available Not Available Zithromax Z-Ghulam 250 mg tablet QD 12/10 completed RECORDED 01/09/20 07 11:11AM BY SHAHEEN KILGORE, MEDICATI ON AUTO-KINJAL CTIVATIO N;2PO QD FOR 1 DAY, THEN 1 QD FOR 4 DAYS. Not Available Not Available Not Available Wellbutri n SR 150 mg tablet, 12 hr sustained -release DAILY 2012 active RECORDED 08/06/19 14 9:45AM BY KATTY JO I, OFFICE VISIT; Not Available Not Available Not Available sulfameth oxazole 800 mg-trimet hoprim 160 mg tablet Take 1 tablet every 12 hours by oral route for 5 days. 07/15 completed Not Available Not Available Not Available ketorolac 0.5 % eye drops Instill 1 drop 3 times a day by ophthalm ic route for 25 days. 02/22 completed Not Available Not Available Not Available oxycodone -acetamin ophen 5 mg-325 mg tablet EVERY 6 HOURS NEEDED active Not Available Not Available No t Available fluoxetin e 20 mg tablet Take 2 tablets every day by oral route. 06/18 completed Not Available Not Available Not Available hydrocort isone 1 %-pramoxi ne 1 % rectal foam 4 TIMES PER DAY NEEDED FOR HEMORRHO IDS 09/05 completed RECORDED 09/13/19 14 11:38AM BY MAGGY CHANDRA MD, MEDICATI ON AUTO-KINJAL CTIVATIO N; Not Available Not Available Not Available clotrimaz ole-betam ethasone 1 %-0.05 % topical cream BID TO AFFECTED AREA 2015 active RECORDED 07/19/20 12 1:12PM BY MAGGY CHANDRA MD, MEDICATI ON AUTO-KINJAL CTIVATIO N; Not Available Not Available Not Available conjugate d estrogens 0.625 mg tablet DAILY 05/16 completed RECORDED 05/16/20 12 10:00AM BY ARIANA CARRION MA, OFFICE VISIT; Not Available Not Available Not Available fluoxetin e 10 mg capsule Take 3 capsules every day by oral route in the morning for 90 days. 06/22 completed Not Available Not Available Not Available omeprazol e 20 mg capsule,d elayed release TAKE ONE CAPSULE BY MOUTH EVERY DAY 12/04 completed Not Available Not Available Not Available zolpidem 5 mg tablet TAKE ONE TABLET BY MOUTH AT BEDTIME NEEDED 2024 active Not Available Not Available Not Avai lable gabapenti n 100 mg capsule Take 3 capsules 3 times a day by oral route for 30 days. 01/25 completed Not Available Not Available Not Available methylpre dnisolone 4 mg tablets in a dose pack active Not Available Not Available Not Available fluoxetin e 20 mg capsule Take 1 capsule every day by oral route for 30 days. 10/03 completed Not Available Not Available Not Available loratadin e 10 mg tablet DAILY FOR SEASONAL ALLERGIC RHINITIS 2012 active RECORDED 02/05/20 14 9:01AM BY KATTY JO I, OFFICE VISIT; Not Available Not Available Not Available progester one micronize d 100 mg capsule AT BEDTIME active RECORDED 02/05/20 14 9:08AM BY KATTY JO I, OFFICE VISIT; Not Available Not Available Not Available oxycodone 5 mg tablet TAKE 1 TABLET BY MOUTH EVERY 4 TO 6 HOURS NEEDED FOR PAIN DIRECTED (DO NOT DRIVE WHILE ON THIS MEDICATI ON) 04/12 completed Not Available Not Available Not Available metaxalon e 800 mg tablet QID 10/30 completed RECORDED 10/31/19 09 12:57PM BY MOOKIE YOU MA, OFFICE VISIT; Not Available Not Available Not Available bupropion HCl XL 300 mg 24 hr tablet, extended release Take 1 tablet every day by oral route. 03/29 completed Not Available Not Available Not Available bupropion HCl XL 150 mg 24 hr tablet, extended release TAKE ONE TABLET BY MOUTH ONCE DAILY 2024 active Not Available Not Available Not Avai lable Multivita min 50 Plus tablet Take 1 tablet 3 times a week by oral route in the evening. 07/15 completed Not Available Not Available Not Available Readi-Cat 2 2.1 % (w/v), 2.0 % (w/w) oral suspensio n Take 450 mL twice a day by oral route as directed for 1 day. 06/14 completed Not Available Not Available Not Available solifenac in 5 mg tablet TAKE ONE TABLET BY MOUTH EVERY DAY 2024 active Not Available Not Available Not Avai lable Vesicare 10 mg tablet Take 1 tablet every day by oral route. 10/03 completed constipa tion Not Available Not Available Not Available darifenac in ER 7.5 mg tablet,ex tended release 24 hr DAILY 10/11 completed RECORDED 10/12/19 12 1:13PM BY IVANA Jain, ANNOTATI ON/ADDEN DUM; Not Available Not Available Not Available acetamino phen 975 mg 3 times a day 10/07 completed Not Available Not Available Not Available Flonase Q NARES QAM 10/30 completed RECORDED 10/31/19 09 12:57PM BY MOOKIE YOU MA, OFFICE VISIT; Not Available Not Available Not Available Vicodin Q 4HR/PRN BACK PAIN 2007 active RECORDED 09/04/19 08 2:16PM BY MAGGY CHANDRA MD, ANNOTATI ON/ADDEN DUM; Not Available Not Available Not Available lidocaine 1 patch daily 10/07 completed Not Available Not Available Not Available Zostavax (PF) 19,400 unit/0.65 mL subcutane ous suspensio n ONE TIME DOSE 05/17 completed RECORDED 05/17/20 12 9:16AM BY MAGGY CHANDRA MD, MEDICATI ON AUTO-KINJAL CTIVATIO N; Not Available Not Available Not Available calcium 600 mg (as carbonate )-vitamin D3 10 mcg (400 unit) tablet Take 1 tablet twice a day by oral route for 90 days. 10/07 completed Not Available Not Available Not Available oxycodone 10 mg tablet Take 1 tablet every 6 hours by oral route as directed for 7 days. 10/07 completed Not Available Not Available Not Available Probiotic DAILY active RECORDED 08/06/19 14 9:45AM BY KATTY JO I, OFFICE VISIT; Not Available Not Available Not Available Suprep Bowel Prep Kit 17.5 gram-3.13 gram-1.6 gram oral solution 06/07 completed Not Available Not Available Not Available Eliquis 5 mg tablet active Not Available Not Available No t Available Shingrix (PF) 50 mcg/0.5 mL intramusc ular suspensio n, kit 08/13 completed Not Available Not Available Not Available Eliquis DVT-PE Treatment 30-Day Starter 5 mg (74 tablets) in dose pack 10/07 completed Not Available Not Available Not Available Vitals Date Recorded Body height Body mass index (BMI) Body weight Heart rate Oxygen saturation Oxygen saturation in Arterial blood by Pulse oximetry Body temperature Systolic blood pressure Diastolic blood pressure Provider Name and Address Organization Details Last Updated DateTime 4 165.74 cm 26.5 kg/m2 15709.1 8 g 83 /min 95 % 95 % 98 [degF] 125 mm[Hg] 72 mm[Hg] Siobhan Lima MA [facility] 4 15:07:59 Date Recorded Body height Provider Name an d Address Organization Details Last Updated DateTime 05/09/2024 165.74 cm Betty Patterson LPN [facility] 05/09/2024 15:18:43 Date Recorded Body height Body mass index (BMI) Body weight Heart rate Oxygen saturation Oxygen saturation in Arterial blood by Pulse oximetry Body temperature Systolic blood pressure Diastolic blood pressure Provider Name and Address Organization Details Last Updated DateTime 5 165.74 cm 26.4 kg/m2 30897.7 8 g 101 /min 96 % 96 % 97.7 [degF] 123 mm[Hg] 78 mm[Hg] John perez MA [facility] 5 11:17:40 Social History Question Answer Notes LastModified by Organizat ion Details LastModified Time Tobacco Smoking Status Former Smoker Not Available [facility] 05/26/2020 03:36:40 Do You Have An Advance Directive? Yes Information not available 06/14/2022 What Is Your Level Of Alcohol Consumption? Occasional [id number] Information not available 05/26/2020 Is Blood Transfusion Acceptable In An Emergency? Yes [id number] Information not available 05/26/2020 What Is Your Level Of Caffeine Consumption? Moderate 2 Cups Of Coffee Daily [id number] Information not available 05/26/2020 How Much Tobacco Do You Chew? None [id number] Information not available 05/26/2020 In The 14 Days Before Symptom Onset, Have You Had Close Contact With A Laboratory-[facility] COVID-19 While That Case Was Ill? No Information not available 06/14/2022 In The 14 Days Before Symptom Onset, Have You Had Close Contact With A Person Who Is Under Investigation For COVID-19 While That Person Was Ill? No Information not available 06/14/2022 Have You Been To An Area Known To Be High Risk For COVID-19? No Information not available 06/14/2022 Are You Currently Employed? No Retired [id number] Information not available 05/26/2020 Are You Deaf Or Do You Have Serious Difficulty Hearing? Yes Information not available 06/14/2022 What Type Of Diet Are You Following? REGULAR [id number] Information not available 05/26/2020 Which Illicit Or Recreational Drugs Have You Used? None [id number] Information not available 05/26/2020 Do You Or Have You Ever Used E-cigarettes Or Vape? 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 16+yearssince kelin neil Information not available 03/04/2021 Live Alone Or With Others? With Others Keturah Osorio) Information not available 06/14/2022 Do You Take Precautions To Prevent Distracted Driving? Yes [employer] Information not available 02/21/2017 How Often Do You Need To Have Someone Help You When You Read Instructions, Pamphlets, Or Other Written Material From Your Doctor Or Pharmacy? Never [employer] Information not available 02/21/2017 Have You Served In The ? No [employer] Information not available 02/21/2017 Have You Or Anyone In Your Household Had Any Of The Following Symptoms In The Last 14 Days: Sore Throat, Cough, Chills, Body Aches For Unknown Reasons, Shortness Of Breath For Unknown Reasons, Loss Of Smell, Loss Of Taste, Fever At Or Greater Than 100 Degrees Fahrenheit? No [employer] Information not available 02/17/2020 Are You Or Anyone In Your Household A Health Care Provider Or Emergency Responder? No [employer] Information not available 02/17/2020 To The Best Of Your Knowledge Have You Been In Close Proximity To Any Individual Who Tested Positive For COVID-19? No [employer] Information not available 02/17/2020 *AWV ONLY* Are You Presently Prescribed Opioid Medication By PCP Or Specialist? If YES -Provider Assess The Benefit For Other, Non-opioid Pain Therapies Instead, Even If The Patient Does Not Have OUD But Is Possibly At Risk. No Information not available 03/04/2021 Have You Recently Traveled To A [place] [id number] High Risk Area Or Gathering In The Last 10 Days? No Information not available 08/13/2020 Marital Status Informatio n not available 06/14/2022 What Was The Date Of Your Most Recent Tobacco Screening? 06/07/2023 [email or web address] Information not available 06/07/2023 How Many Children Do You Have? 5 3 Sons And 2 Daughters And 14 GC And 4 GGC [email or web address] Information not available 08/13/2020 What Is Your Current Pack Years? 10packyears Information not available 06/14/2022 Do You Use Protection During Sex? No [id number] Information not available 05/26/2020 Difficulty Reading? Yes Information not available 06/14/2022 Seat Belts Used Routinely Yes Information not available 06/14/2022 Are You Sexually Active? Yes [id number] Information not available 05/26/2020 Smoke Alarm In Home Yes Information not available 06/14/2022 At What Age Did You Start Smoking Tobacco? 16 Quit At 20 Information not available 04/12/2022 Are You Passively Exposed To Smoke? No [email or web address] Information not available 02/21/2017 Do You Or Have You Ever Used Smokeless Tobacco? Never Used Smokeless Tobacco [id number] Information not available 05/26/2020 How Much Tobacco Do You Smoke? 0.5 PPD [id number] Information not available 05/26/2020 Do You Use Any Illicit Or Recreational Drugs? No Information not available 06/14/2022 Do You Use Sunscreen Routinely? No [id number] Information not available 05/26/2020 How Many Years Have You Smoked Tobacco? 4 [id number] Information not available 05/26/2020 Difficulty Watching TV? No Information not available 06/14/2022 Do You Or Have You Ever Used Any Other Forms Of Tobacco Or Nicotine? No Information not available 06/14/2022 Sex: Unknown Functional Status Question Answer Note LastModified by Organizat ion Details LastModified Time Do you have difficulty walking or climbing stairs? No Information not available 06/14/2022 [address]iculty driving at night? Yes Information no t available 06/14/2022 Are you able to walk? YESWOREST Information not available 06/14/2022 Do you have difficulty doing errands alone? No Information not available 06/14/2022 Are you able to care for yourself? Yes [id number] Information not available 05/26/2020 Do you have difficulty dressing or bathing? No Information not available 06/14/2022 What is your exercise level? None [id number] Information not available 05/26/2020 Mental Status Question Answer Note LastModified by Organization D etails LastModified Time Do you have difficulty concentrating, remembering or making decisions? No Information no t available 06/14/2022 Family History Relationship Description Onset Age of this Age Resolved Age Notes LastModified by Organization Details LastModified Time Father Myocardial infarction 65 Not available 06/14 13:51:22 Father Alcohol abuse 65 [email or web address] Not available 03/24 11:38:15 Sister Atrial fibrillation 67 Not available 13:51:22 Brother Atrial fibrillation 69 Not available 13:51:22 Brother Malignant tumor of colon [email or web address] Not available 15:43:09 Mother Atrial fibrillation Not available 13:51:22 Mother Arthritis 83 [email or web address] Not avail able 04/05/2018 11:38:46 Mother Chronic renal failure 83 Not available 2021 13:51:22 Medical History Condition Response Other N Gout N Blood Diseases N Kidney Stones N Hyperthyroidism N Breast Cancer N Lung Disease N COPD N Depression N Hypothyroidism N Defects or Inherited Disease N Anesthesia Complications N Headaches/Migraines N Varicose Veins N Anxiety Disorder N Obesity N Vision or Eye Problems N Arthritis N Head Injury/Concussion N Polyps N Infertility N Congenital Anomalies N Acid Reflux (GERD) Y Cancer Y Stroke N ADHD N Endometriosis N High Cholesterol N Liver Disease N Fibromyalgia N Kidney Disease N Heart Problems N Ear or Hearing Problems N Hospitalizations N Thyroid Problems N GI Problems N Acne N Skin Problems N Eating Disorder N Anemia N Constipation N Bladder Problems N Mental Illness N Ovarian Cancer N Diabetes N Blood Transfusions N Seizures/Epilepsy N Tuberculosis N AIDS/HIV N Congestive Heart Failure (CHF) N Eczema N Diverticulitis N Abuse/Domestic Violence N Allergies Y Asthma N Reflux/GERD N Hepatitis N Pulmonary Embolism N Hypertension N Osteoporosis N Chicken Pox N Autism Spectrum Disorder (ASD) N Gynecological History Statement/Question Response Current Control Method Hysterectom y Date of Last Colonoscopy 04/20/2021 Most Recent Mammogram 05/03/2017 Obstetrics History GPAL:G 0 P 0 0 0 0 Immunizations Vaccine Type Date Status Note Provider Nam e and Address Organization Details Recorded Time influenza, unspecified formulation 6 completed April Fernandez [facility] 02/21/2017 14:02:35 pneumococcal, unspecified formulation 6 completed April Fernandez [facility] 02/21/2017 14:02:55 Pneumococcal conjugate PCV 13 8 completed SUZY Tai [facility] 01/28/2022 09:18:25 Influenza, high-dose, trivalent, PF 8 completed Indiana Manrique MA [facility] 07/15/2021 11:33:10 Influenza, high-dose, trivalent, PF 9 completed Katty frost [facility] 06/18/2019 14:18:04 zoster recombinant 0 completed SUZY Tai [facility] 01/28/2022 09:18:25 Influenza, split virus, quadrivalent, preservative 0 completed SUZY Tai [facility] 01/28/2022 09:18:25 COVID-19, mRNA, LNP-S, PF, 30 mcg/0.3 mL dose 1 completed [facility]Y [facility] 03/04/2021 11:34:30 COVID-19, mRNA, LNP-S, PF, 30 mcg/0.3 mL dose 1 completed SUZY [place], [facility] 03/04/2021 11:34:51 Influenza, split virus, quadrivalent, preservative 1 completed SUZY [place], [facility] 07/15/2021 11:33:10 COVID-19, mRNA, LNP-S, PF, 30 mcg/0.3 mL dose 1 completed SUZY [place], [facility] 06/07/2021 16:01:23 zoster live 2 completed SUZY Avila, [facility] 07/15/2021 11:33:10 COVID-19, mRNA, LNP-S, PF, 100 mcg/0.5mL dose or 50 mcg/0.25mL dose 2 completed SUZY Tai [facility] 01/28/2022 09:18:25 pneumococcal polysaccharide PPV23 5 completed [facility] 01/28/2022 09:18:26 influenza, unspecified formulation 6 completed SUZY Tai [facility] 01/28/2022 09:18:26 Influenza, high-dose, quadrivalent, PF 2 completed SUZY [place], [facility] 12/01/2022 15:02:27 Td (adult), 2 Lf tetanus toxoid, preservative free, adsorbed 0 completed Not Available [facility] 02/04/2014 14:00:31 Tdap 3 completed Not Available [facility] 02/04/2014 14:00:31 Td (adult), 2 Lf tetanus toxoid, preservative free, adsorbed 3 completed Maggy Floyd MD [address], [address], [facility] 06/08/2023 08:17:29 Past Encounters Encounter ID Performer Location Encounter Start Date Encounter Closed Date Diagnosis/Indication Diagnosis SNOMED-CT Code Diagnosis ICD10 Code Diagnosis Note [id number] [facility]Comm [facility] [address] [facility] [place] [address] 09/19/2006 00:00:00 [id number] auto[facility]Comm erce [address] [facility],[address] [place] [address] 07/18/2006 00:00:00 [id number] auto[employer]Comm erce [address] [facility] [place] [address] 06/29/2006 00:00:00 [id number] auto[employer]Comm erce [address] [facility] [place] [address] 05/05/2006 00:00:00 [id number] autoEComm erce [address] [facility],[address] [place] [address] 10/17/2006 00:00:00 [id number] auto[employer]Comm erce [address] [facility],[address] [place] [address] 11/20/2006 00:00:00 [id number] autoEComm erce [address] [facility] [place] [address] 12/05/2006 00:00:00 [id number] auto[facility]Comm erce [address] [facility] [place] [address] 01/08/2007 00:00:00 [id number] autoEComm erce [address] [facility] [place] [address] 02/07/2007 00:00:00 [id number] autoEComm erce [address] [facility],[address] [place] [address] 02/22/2007 00:00:00 [id number] autoEComm erce [address] [facility],[address] [place] [address] 09/04/2007 00:00:00 [id number] [place] [address] 10/19/2007 00:00:00 [id number] [place] [address] 11/05/2007 00:00:00 [id number] [address] [place] [address] 10/30/2008 00:00:00 [id number] [place] [address] 09/01/2009 00:00:00 [id number] [address] [place] [address] 09/21/2009 00:00:00 [id number] autoEComm erce [address] [facility],[address] [place] [address] 07/27/2010 00:00:00 [id number] autoEComm erce [address] [facility],[address] [place] [address] 02/04/2011 00:00:00 [id number] autoEComm erce [address] [facility],[address] [place] [address] 05/25/2011 00:00:00 [id number] autoEComm erce [address] [facility] [address] [place] [address] 05/16/2012 00:00:00 [id number] autoEComm erce [address] [facility] [address] [place] [address] 08/01/2012 00:00:00 [id number] autoEComm erce [address] [facility],[address] [place] [address] 11/22/2012 00:00:00 [id number] [address]Comm [address] [place] [address] 12/27/2012 00:00:00 [id number] auto[address]Comm er[address] [place] [address] 08/06/2013 00:00:00 [id number] autoEComm erce [address] [facility] [place] [address] 02/04/2014 00:00:00 [id number] Kattylinsey Ramosdoyle Main Office [address] [place] [address] [place] [address] 07/01/2014 10:16:40 07/01/2014 10:47:00 Mass of body structure 251765662 mass at lower left back which appears to be a cyst. [id number] Kattylinsey Ramosdoyle Main Office [address] [place] [address] [place] [address] 10/09/2014 10:46:17 10/09/2014 11:53:11 Adult health examination 781715143 Menopause present 413730791 Administra tion of pneumococcal vaccine 18393281 Allergic rhinitis 85011962 Hypercholesterolemia 74666916 Varicella vaccination 92368542 [id number] Maggy Floyd MD Main Office [address] [place] [address] [place] [address] 01/13/2016 15:38:45 01/13/2016 16:27:38 Degenerative joint disease involving multiple joints 397651191 M15.9 Osteopenia 410160778 M85 .80 we looked into boniva because it is only once a month but it is not covered by her insurance. She will look at taking the fosomax at different times but will continue with it. She is also taking calcium and vitamin D. Gastroesop hageal reflux disease 589569006 K21.9 She is concerned about calcium absorption while taking prilosec so she will change to an OTC H2 belkis. [id number] Maggy Floyd MD Main Office [address] [place] [address] [place] [address] 02/21/2017 12:53:36 02/21/2017 14:22:37 Adult health examination 653147535 Z00.00 Urinary incontinence 165 493761 R32 She will try an increased dose of vesicare and if her problem persists after one month she will make a urology appointmen t. Osteopenia 775407478 M85 .80 Taking fosomax and tolerating it well. She is also taking calcium and vitamin D. Gastroesop hageal reflux disease 227218181 K21.9 She was concerned about calcium absorption with a PPI but has continued it since she gets symptom relief. Insomnia 832392947 G47.0 0 Uses prn and it helps. Single austen or depressive episode 386562197 F32.9 Under control with meds. Hyperlipidemia 05518371 E78.5 Not on meds; check fasting level. Varicella vaccination 68 800058 Z23 Administra tion of pneumococcal vaccine 31158660 Z23 Screening for malignant neoplasm of breast 622574851 Z12.39 Hearing loss 51066944 H9 1.93 [id number] Maggy Floyd MD Main Office [address] [place] [address] 09/27/2017 08:45:11 09/27/2017 09:49:54 Insomnia 973382642 G47.00 Uses prn and it helps. Degenerati on of lumbar intervertebral disc 52817748 M51.36 [id number] Maggy Floyd MD Main Office [facility] [address] [place] [address] 12/04/2017 10:52:56 12/04/2017 11:59:03 Lymphadenopathy 18845890 R59.9 These are chronic and seen on imaging for more than 10 years. Small, benign and no further work-up is needed. [id number] Maggy Floyd MD Main Office [facility] [address] [place] [address] 01/25/2018 09:36:11 01/25/2018 10:36:45 Pre-surgery evaluation 559492592 Z01.818 According to Mcqueen stone-op risk assessment , patient has 0.36% risk of stone-op MS or cardiac arrest. EKG unchanged from 2011, no acute abnormalit y, labs and CXR are pending. No further work-up necessary, may proceed as scheduled. Urinary incontinence 165 183581 R32 Degenerati on of lumbar intervertebral disc 51681748 M51.36 having L4-L5 decompress ion and fusion 02/[address] Ephraim Rubalcava 87127709 R53.83 [id number] Maggy Floyd MD Main Office [address] [place] [address] 02/08/2018 09:48:24 02/08/2018 10:13:39 [id number] Maggy Floyd MD Main Office [address] [address] [place] [address] 04/05/2018 10:33:16 04/05/2018 11:59:31 Adult health examination 772824558 Z00.00 Hyperlipidemia 17658087 E78.5 Not on meds; check fasting level. Spinal fernando nosis of lumbar region 83549282 M48.061 resolved with surgery Insomnia 614448990 G47.0 0 Uses prn ambien and it helps. [id number] ELLIE Martinez Main Office [address] [address] [place] [address] 09/14/2018 08:46:31 09/14/2018 09:21:14 Plantar fasciitis 920665955 M72.2 will refer to podiatry, take meloxicam once daily as directed with food. ice, elevate, wear fasciitis sleeve, supportive shoes, do not walk barefoot, continue exercises. [id number] Maggy Floyd MD Main Office [address] [address] [place] [address] 10/03/2018 10:09:39 10/03/2018 11:03:57 Hyperlipidemia 30287683 E78.5 Not on meds; check fasting level. Urinary incontinence 165 526807 R32 She would like to go down on her vesicare dose because of constipati on which started after increasing the dose. Major depr essive disorder 334134607 F32.9 She feels that this is no longer under good control so will increase her dose of fluoxetine . Osteophyte of bone 11961 25887 53740 M77.9 Bone spur at the left heel. Followed by podiatry. Panniculitis 64749608 M7 9.3 [id number] Maggy Floyd MD Main Office [address] [address] [place] [address] 06/18/2019 14:08:42 06/18/2019 15:10:03 Adult health examination 046946775 Z00.00 UTD with immunizati ons except due for an updated shingles vaccine. Had a colonoscop y done last year. Hyperlipidemia 27014744 E78.5 Not on meds; check fasting level. Osteoporosis 54664412 M8 1.0 Major depr essive disorder 317672273 F32.1 She feels that this is no longer under good control so will add wellbutrin to her regimen. Solitary n odule of lung 631198754 R91.1 [id number] Maggy Floyd MD [facility] [address] [facility] [address] [facility] [place] [address] 02/17/2020 13:26:01 02/17/2020 15:03:20 Insomnia 320726575 G47.00 Uses prn ambien and it helps. Major depr essive disorder 207217339 F32.1 She feels that this is no longer under good control so will add wellbutrin to her regimen. Urinary bl adder problem 479115371 N32.9 Anxiety state 112625317 F41.1 [id number] Maggy Floyd MD Main Office [address] [facility] [address] [place] [address] 08/13/2020 10:14:55 08/13/2020 11:20:20 Adult health examination 510469027 Z00.00 UTD with immunizati ons. Had one shingles shot and will be returning for her second one. Had a colonoscop y done in 2018 but because of a poor prep she was advised to repeat it in 1 year. She has not done so yet. Screening for malignant neoplasm of breast 604720220 Z12.39 Screening for malignant neoplasm of colon 679651323 Z12.11 Had a colonoscop y in 2018 but a repeat was recommende d because of poor prep. She will make her own appointmen t. Multiple joint pain 3567 8005 M25.50 Fhx of RA. Will do screening labs and refer to rheum. Hyperlipidemia 88956774 E78.5 Not on meds; check fasting level. Major depr essive disorder 858884821 F32.1 Doing well on prozac and wellbutrin . [id number] Isabel Smith Main Office [address] [facility] [address] [facility] [place] [address] 03/04/2021 11:16:20 03/04/2021 11:55:55 Insomnia 057513661 G47.00 just filled zolpidem 03/03 with 2 refills. Anxiety state 127746700 F41.1 Single austen or depressive episode 806073018 F32.1 Feeling depressed, will increase fluoxetine to 40mg for now, she has been taking 30mg. F/u with PCP in 3 months for recheck. Fatigue 40838058 R53.83 will check labs Vitamin D deficiency 347 10671 E55.9 Low back pain 849742325 M54.5 s/p surgery 3 years ago. will check XR. [id number] Tisha Zimmermanross Main Office [address] [address] [place] [place] [address] 06/07/2021 15:21:32 06/07/2021 16:32:44 Pre-surgery evaluation 121067966 Z01.818 Patient is at low risk for cardiopulm onary complicati ons with planned procedure based on comorbidit ies, good exertional tolerance and overall procedure risk. Patient advised to avoid aspirin and NSAIDS for 7 days prior. May proceed to scheduled surgery as planned. Hold meds am of procedure Mcqueen 0.2% Cramp in lower limb 4499 85969 R25.2 try tonic water at night, labs today, stretching Abnormal urine odor 8769 003 R82.90 check urine Bilateral cataracts 9572 2004 H26.9 having surgery for this with progressiv e vision changes [id number] Maggy Floyd MD Main Office [address] [place] [address] 07/15/2021 11:23:35 07/15/2021 12:21:52 Increased frequency of urination 821222080 R35.0 Urine dip looks negative and last urine was also normal but she was treated with 5 days of bactrim. Will order another send out UA with reflex culture and will not treat until results are back. If she does not have a UTI and the symptoms persist we will do a urology referral for further evaluation . [id number] Jarad [facility]ains [facility] [address] [address] [place] [place] [address] 01/28/2022 08:30:44 01/28/2022 10:31:02 Pain of left knee joint 9725712782 20380 M25.562 [id number] Maggy Flody MD Main Office [address] [place] [address] 02/22/2022 09:55:47 02/22/2022 10:33:59 Pre-surgery evaluation 708770972 Z01.818 She is low-risk for surgery and cleared for her upcoming left knee surgery. Tear of me dial meniscus of knee 731983986 S83.242A Having repair of her left medial meniscus done 02/28/[address] Templeton. [id number] ELLIE Martinez Main Office [address] [address] [place] [address] 04/12/2022 14:08:29 04/12/2022 14:57:50 Left lower quadrant pain 210870811 R10.32 will check labs and urine. History of nephrectomy 7210456016 9104 Z90.5 left, she has one kidney, has been taking nsaids and tylenol Piriformis syndrome 1291 76991 G57.02 Suspect piriformis syndrome causing LLQ and left SI joint pain, will check XRs, muscle relaxer and heat as needed. stretches as tolerated. Sacroiliac joint pain 20 9679670 M53.3 Gastroesop hageal reflux disease 271827150 K21.9 tums not helping, GERD sx. will check labs. [id number] Maggy Floyd MD Main Office [address] [address] [place] [address] 06/14/2022 13:51:03 06/14/2022 14:37:46 Pain of left hip joint 7819659656 31912 M25.552 [id number] Tyler Booker PA-C Main Office [address] [address] [place] [address] 12/01/2022 14:49:15 12/01/2022 15:57:04 Easy bruising 351496934 R58 not on AC or aspirin, will check labs for further evaluation advised pt to be more gentle when applying moisturizi ng lotion, avoid 'banging' into things, and to stay well hydrated [id number] Maggy Floyd MD Main Office [address] [address] [place] [address] 06/07/2023 09:18:08 06/07/2023 10:36:41 Adult health examination 819450049 Z00.00 UTD with immunizati ons including COVID but has not gotten the recent booster. Also has not yet had the flu vaccine. Had one shingles shot and will be returning for her second one. Had a colonoscop y done in 2020 and is due again in 2025. She has not had a mammogram in years and has no plans to get another one. Advance care planning 71 3948979 Z71.89 Discussed HCP and MOLST forms. Requires a tetanus booster 220125871 Z23 Dyspnea on exertion 6084 5006 R06.09 This is possibly due from caitykamilla lisa. She has a remote smoking history but her peak flow in the office was 360 which is normal for her age, sex and height. Her EKG shows a prolonged QT. Will refer to cardiology for further evaluation . At [facility] ed risk for falls 621983564 Z91.81 She often feels unsteady on her feet. Hyperlipidemia 46642015 E78.5 Not on meds; check fasting level. [id number] Ilda Booker PA-C Main Office [address] [facility] [address] [place] [address] 12/26/2023 14:33:48 12/26/2023 15:55:56 Pain of left thigh 6010584014 31741 M79.652 Presenting for chronic pain in the L. inner thigh which I suspect to be muscular in nature, possibly related to her knee and hip issues and mechanics of movement. Lower suspicion for lumbar radiculopa thy given that her pain is isolated to her mid inner thigh. Plan is to trial on meloxicam 15 mg for two weeks and have a telehealth visit for recheck. If no improvemen t, will send referral for Orthopedic s. [id number] Ilda Booker PA-C Tele[facility] [address] [place] [address] 01/08/2024 12:39:47 01/08/2024 13:44:12 Pain of left thigh 6374586905 08845 M79.652 Presenting for chronic pain in the L. inner thigh which I suspect to be muscular in nature, possibly related to her knee and hip issues and mechanics of movement. Lower suspicion for lumbar radiculopa thy given that her pain is isolated to her mid inner thigh. meloxicam 15 mg did not alleviate . At this point I will ask;pt to see an orthopedis t for consult on this ongoing issue. [id number] Maggy Floyd MD Main Office [address] [facility] [address] [place] [address] 05/07/2024 08:11:45 05/07/2024 11:42:11 [id number] [facility] [address] [facility] [address] [place] [address] 05/09/2024 15:11:05 05/14/2024 08:58:23 Intertrochanteric fracture 859429351 S72.142A Followed by Dr Donato and has a f/u 05/31/24. Currently pain is controlled with oxycodone and tylenol. Receiving PT and OT. Not yet weight bearing. Osteoporosis 15861519 M8 1.0 Restart calcium Anemia 958895952 D64.9 Received 4 units PRBC's in the hospital. Will check to ensure bleeding has stopped. [id number] Ilda Booker PA-C Main Office 36[address] [facility] [address] [place] [address] 10/07/2024 10:49:39 10/07/2024 12:08:34 Dyspnea 015548262 R06.00 Exertional SOB and fatigue for 3 weeks post-COVID infection. Lungs clear to auscultati on, no audible wheezing. Did not have symptoms of prior to COVID infection. We will order CBC (hx of anemia), CMP, and pro bnp. Vitamin D deficiency 347 95556 E55.9 Pt has hx of vitamin D deficiency and is not currently taking supplement s. Will check Vit D levels. Fatigue 97591533 R53.83 Increased fatigue 3 weeks post-COVID infection without significan t improvemen t. Will check TSH to r/o hypothyroi dism. Deep venou s thrombosis of lower extremity 789780879 I82.409 On Eliquis. Provoked by surgery in March. Pt. has f/u with vascular in October. Will continue Eliquis as directed until then. Health Concerns Section Related Observation LastModified by Organization Detai ls LastModified Time None Recorded Concern Status LastModified by Organization Details LastModified Time None Recorded Advance Directives Directive Y: Payers Encounter Date Sequence Insurance Name Policy Number Policy Gallegos Covered Member ID Gallegos Member ID Guarantor Name 12/26/2023 2 [employer] - OPTIONS Courtney Johnson Jonnathan [id number] Courtney S Jonnathan 12/26/2023 1 [place] Courtney S Jonnathan [id number] Courtney S Jonnathan 01/08/2024 2 [employer] - OPTIONS Courtney S Jonnathan [id number] Courtney S Jonnathan 01/08/2024 1 [place] [place] Courtney S Jonnathan [id number] Courtney S Jonnathan 05/07/2024 2 [employer] - OPTIONS Courtney S Jonnathan [id number] Courtney S Jonnathan 05/07/2024 1 [place] [employer] Courtney S Jonnathan [id number] Courtney S Jonnathan 05/09/2024 2 [employer] - OPTIONS Courtney S Jonnathan [id number] Courtney S Jonnathan 05/09/2024 1 [place] [employer] Courtney S Jonnathan [id number] Courtney S Jonnathan 10/07/2024 2 [employer] - OPTIONS Courtney S Jonnathan [id number] Courtney S Jonnathan 10/07/2024 1 [place]: [facility] GOVERNMENT SERVICES Courtney S Jonnathan [id number] Courtney S Jonnathan Notes Date Note Type Note Provider Name and Address Organization Details Recorded Time 12/26/2023 text/html 73 yo female wit h history of lumbar disc disease presenting for one year of pain to her inner left thigh from groin to knee along with numbness/tingling to plantar aspect of left foot and medial ankle/lower leg. She states this pain began while in PT after having a knee operation one year ago and has not subsided since. She denies any focal trauma precipitating her pain. She has intermittent back pain but notes that it is not always present with her current symptoms. Has used gabapentin intermittently at home with some relief but does not like how it makes her feel. Tylenol is not helpful. Pain is worse when sitting and at night. Pt. has h/o L. hip arthritis and was seen by ortho 3 m ago with cortisone injection to L. hip. Ilda Booker PA-C [address] [address], [place], [address], [facility] 12/26/2023 16:59:14 01/08/2024 text/html 73 yo female wit h history of lumbar disc disease presenting for on f/u one year of pain to her inner left thigh from groin to knee along with numbness/tingling to plantar aspect of left foot and medial ankle/lower leg. She states this pain began while in PT after having a knee operation one year ago and has not subsided since. She denies any focal trauma precipitating her pain. She has intermittent back pain but notes that it is not always present with her current symptoms. Has used gabapentin intermittently at home with some relief but does not like how it makes her feel. Tylenol was not helpful. Pain is worse when sitting and at night. Pt. has h/o L. hip arthritis and was seen by ortho 3 m ago with cortisone injection to L. hip. Meloxicam was started at 15 mg dose, but did not seem to help either. Ilda Booker PA-C [address] [facility] [address], [place], [address], [facility] 01/08/2024 13:32:02 05/07/2024 text/html Hospitalization Contact RecordReported bypatient.Follow UpHospital: SNF; admit date: (Please enter in format 'MM/DD/YYYY') (04/24/2024); date of discharge: (Please enter in format 'MM/DD/YYYY') (05/03/2024); date of contact: (Please enter in format 'MM/DD/YYYY') (05/07/2024); Fabian RehabNotes:Medicare covered inpatient stay? yesMedicare CONI with in 48 working hours? yesHigh Complexity code valid on or before:AprilModerate Complexity code valid on or before:AprilHCP on file? yesMOLST on file? noDischarge Summary available? yes 74 year old female [facility] for further medical management and re conditioning due to left hip fracture reconstruction. Patient is not weight bearing in wheel chair at this time. Patient to see ortho on 05/31/2024 will evaluate if able to bear weight at this time. During rehab stay was receiving PT, OT chcf . Patient is on strict protocol due to unable to ambulate . Patient is on second floor in her bedroom close to bathroom. Unable to transition from one room to another . Still in a lot of pain has [facility] home care that started on Monday05/05/2024 . Due to limited movement , patient is bed bound patient is not receiving full PT services. At this time patient denies chest pain, shortness of breath, nausea, vomiting or fever. Incision area is clean try ,intact. Patient does reports swelling and slight warm to the touch, pain is an 6 out of 10. Has spoken to Ortho and noted to be normal at this time. Medication was reviewed and discuss with VNA, no questions or concerns at this time. PCP Heads Up:Patient would like to discuss medication for anxiety noted had panic attack on Monday. Due to unable to ambulate changed in person visit to telehealth visit for 05/09/2024 at 3:20 pm with PCP. Maggy Floyd MD [address], [address], [facility] 05/07/2024 11:42:08 05/09/2024 text/html Hospitalization Contact RecordReported bypatient.Follow UpHospital: SNF; admit date: (Please enter in format 'MM/DD/YYYY') (04/24/2024); date of discharge: (Please enter in format 'MM/DD/YYYY') (05/03/2024); date of contact: (Please enter in format 'MM/DD/YYYY') (05/07/2024); Orgas RehabNotes:Medicare covered inpatient stay? yesMedicare CONI with in 48 working hours? yesHigh Complexity code valid on or before:AprilModerate Complexity code valid on or before:AprilHCP on file? yesMOLST on file? noDischarge Summary available? yes 74 year old female [facility] for further medical management and re conditioning due to left hip fracture reconstruction. Patient is not weight bearing in wheel chair at this time. Patient to see ortho on 05/31/2024 will evaluate if able to bear weight at this time. During rehab stay was receiving PT, OT chcf . Patient is on strict protocol due to unable to ambulate . Patient is on second floor in her bedroom close to bathroom. Unable to transition from one room to another . Still in a lot of pain has [facility] home care that started on Monday05/05/2024 . Due to limited movement , patient is bed bound patient is not receiving full PT services. At this time patient denies chest pain, shortness of breath, nausea, vomiting or fever. Incision area is clean try ,intact. Patient does reports swelling and slight warm to the touch, pain is an 6 out of 10. Has spoken to Ortho and noted to be normal at this time. Medication was reviewed and discuss with VNA, no questions or concerns at this time. She was admitted to [facility] for a routine left hip replacement secondary to end-stage OA. Surgery was done by Dr Donato on 04/17/24. Two days later she was walking with a walker and 2 hospital staff to the bathroom and after 2 steps she felt a crack and was diagnosed with a fx of her left greater trochanter. She returned to the OR for further surgery on 04/19. Will she was an inpatient she was noted to have a low H/H and was given 4 units of PRBC's. Her initial H/H was 8.7/26.2 and her last H/H done 04/28/24 was 9.6/30.7. She has been home since 05/04/24 and is starting PT and OT. twice weekly and VNA is coming in. She is currently taking oxycodone 5-10 mg with 975 mg of tylenol for the pain. Maggy Floyd MD [address] [address], [place], [address], [facility] 05/10/2024 09:07:39 10/07/2024 text/html 74 y/o female presents with 3 weeks of exertional SOB and fatigue after covid infection. SOB accompanied by diaphoresis. Pt did not take any antiviral for COVID infection. She had a L hip operation back in March 2024, which was complicated by provoked DVT in Jul 2023, on 10 mg Eliquis daily. Reports sleeping up to 12 hours per night without feeling rested with significantly reduced energy levels during the day, making it hard to do daily tasks. She feels like SOB and fatigue are the same or worse than when they started after the covid infection. She denies any chest pain, palpitations, light headedness, or dizziness. She reports increased incidence of acid reflux, states she has been using Tums but has not been taking omeprazole. Ilda Booker PA-C [address] [address], [place], [address], [facility] 10/07/2024 13:14:57 OBGyn Episode No OBEpisode recorded.
== END 2024-10-31 08:19 | disposition home or self-care (01) ==
LOC: HO.HOSX 08:18
PROVIDERS: Visit Provider Orthopaedic Surgery
DX: M25.552 Pain in left hip (principal); M25.559 Pain in unspecified hip; M97.02XA Periprosthetic fracture around internal prosthetic left hip joint, initial encounter
CPT/HCPCS: 72170; 73501; 99212

== ENCOUNTER 2024-10-31 09:10 | Outpatient (AMB) | payer MEDICARE, SELFPAY ==
--- NOTE | 2024-10-31 09:21 | A.OFFVIS_ITS ---
Vital Signs 10/31/24 09:25 Height 5 ft 6 in Weight 160 lb BMI 25.8 Intake Visit Reasons: OV- L SAM Revision 04/19/24 Intake Note: Courtney is a 74 year old female who presents today for a follow up about 7 months s/p Left Hip Arthroplasty 04/17/24 & Revision Arthroplasty with ORIF of greater Trochanter 04/19/24. At her last visit she was instructed that she would continue weight bearing with a walker and physical therapy. She had a blood clot which was being managed with Eliquis. Patient reports that she is still not walking right, it is mildly painful when she is weight bearing. She is working with PT 2x a week at [facility] in [place]. She is frustrated that she is at the 6 month robbie and is still struggling. She would like to know if she has reached MMI or if things will get better. Allergies itraconazole [From Sporanox] Allergy (Severe, Verified 10/31/24 09:27) Facial Swelling, throat swelling HPI HPI OV- L SAM Revision 04/19/24: Details: This is a 74-year-old woman who underwent a uncomplicated hip replacement March of 2024. She sustained a postoperative periprosthetic fracture and a long stem distally fixated implant was placed with a greater trochanteric claw plate. We advanced her ambulation slowly and she was slowly improving until the last few months her pain has been worsening. Her primary complaint is poor gait mechanics rather than pain however. She uses walker to ambulate and can not walk normal. [facility] Medical History Arthritis of left hip Depression Anxiety Arthritis Fatty liver Osteoarthritis Back pain GERD (gastroesophageal reflux disease) History of blood transfusion (~2000) History of kidney cancer Surgical History History of total left hip arthroplasty History of nephrectomy, left (~2005) History of pubovaginal sling Hx of colonoscopy Hx of tubal ligation Hx of ovarian cystectomy History of back surgery Hx of right knee surgery History of left knee surgery History of hysterectomy H/O bilateral breast biopsy Hx of appendectomy (~1966) Social History Household Members: Significant Other Housing: House Are you a primary social worker palliative care to a significant other at home: No Do you presently have visiting nurse or other home services: No 75 years or older and lives alone: No Alcohol intake: never Comment: aware of trip hazard Patient Tobacco Use Status: Former Tobacco user Tobacco use type: Cigarette service: No Physical Exam Vital Signs: BMI result Body Mass Index 25.8 Extrem Other: Severe Trendelenburg gait. Minimal pain with hip range of motion. Incision clean dry and intact Results Reviewed Results Reviewed: I personally reviewed relevant radiographs. Compared to prior radiographs there is cable breakage and change in the position of the claw plate. Assessment & Plan Assessment & Plan (1) Periprosthetic fracture around internal prosthetic left hip joint: Code(s): M97.02XA - Periprosthetic fracture around internal prosthetic left hip joint, initial encounter Category: Medical Plan: This is a 74-year-old woman with a periprosthetic femur fracture treated with revision arthroplasty and a claw plate. I suspect there is slow healing of the greater trochanter as the position does not look significantly altered but I can not rule out continued nonunion and I recommend removal of the claw plate. I think this would that will allow her abductor to function more normally. I discussed this with her. She is hesitant to go forward and wants to seek a 2nd opinion I recommend she see Dr. Acosta at [facility]. I will help coordinate that visit for. Orders: Orders XR pelvis 1-2V 10/31/24 M25.559 - Pain in unspecified hip XR hip LT 1V 10/31/24 M25.552 - Pain in left hip Referrals Orthopedics Referral M97.02XA - Periprosthetic fracture around internal prosthetic left hip joint, initial encounter Coding Level of Care Code Est Pt Level 3 (54202) Diagnoses Periprosthetic fracture around internal prosthetic left hip joint M97.02XA
[2024-10-31 09:25] VITALS: BMI 25.8
--- OUTSIDE RECORDS SUMMARY | 2024-10-31 09:50 | XMS_ITS | Clinical Summary ---
Author Organization [facility] ity Address [address] [place] [address] Care Team Providers Care Director Of District Office Name Role Phone Unavailable Primary Care Provider [...] Documents on File Type Date Recorded Patient Director Of Laboratory Operations Expl anation Health Care Decision (hx) 05/13/2024 AD SAMM DIRECTIVE
--- OUTSIDE RECORDS SUMMARY | 2024-10-31 09:50 | XMS_ITS | Clinical Summary ---
Author Organization [facility] Address [address] [place] [address] Care Team Providers Care Fitter Type Bar And Segment Name Role Phone Billy Floyd MD Primary Care Provider [phone] Allergies Active Allergy Reactions Criticality Noted Date [...] this topic Medical Devices Implanted Type Area Full Time Device Identifier Shelf Expiration Date Model / Serial / Lot 7-13 Rise 8mm Cage Implanted:Qt y: 1 on 02/06/2018 by Shemar Small MD at [facility] Cage N/A: Spine Lumbar [employer] 193.001 / / 35mm Deangelo Implanted:Qt y: 1 on 02/06/2018 by Shemar Small MD at [facility] Nail/Deangelo N/A: Spine Lumbar [employer] MINIMALLY INVASIVE T [id number] / / 40mm Deangelo Implanted:Qt y: 1 on 02/06/2018 by Shemar Small MD at [facility] Nail/Deangelo N/A: Spine Lumbar [employer] MINIMALLY INVASIVE T [id number] / / 6.5 X 55mm Voyager Screw Implanted:Qt y: 1 on 02/06/2018 by Shemar Small MD at [facility] Screw N/A: Spine Lumbar [employer] MINIMALLY INVASIVE T [id number] / / 6.5 X 50mm Voyager Screw Implanted:Qt y: 1 on 02/06/2018 by Shemar Small MD at [facility] Screw N/A: Spine Lumbar [employer] MINIMALLY INVASIVE T [id number] / / 6.5 X 45mm Voyager Screw Implanted:Qt y: 2 on 02/06/2018 by Shemar Small MD at [facility] Screw N/A: Spine Lumbar [employer] MINIMALLY INVASIVE T [id number] / / Fibrinet Implanted:Qt y: 1 on 02/06/2018 by Shemar Small MD at [facility] Tissue N/A: Spine Lumbar Other 03/20/2018 [id number] / / [id number] Advance Directives * Full Code (Latest Code Status on File) Date Activated Date Inactivated Comments 02/06/2018 3:26 PM Care Teams Fitter Type Bar And Segment Relationship Specialty Start Date End Date Billy Floyd MD [address] [address] PCP - General Internal Medicine 01/30/18
== END 2024-10-31 09:50 | disposition home or self-care (01) ==
LOC: HO.HOS 09:11
PROVIDERS: PCP Internal Medicine; Visit Provider Orthopaedic Surgery
DX: M97.02XA Periprosthetic fracture around internal prosthetic left hip joint, initial encounter (principal); Z96.642 Presence of left artificial hip joint
CPT/HCPCS: 99213

== ENCOUNTER → 2024-10-31 09:17 | Outpatient (BNV) | payer MEDICARE, SELFPAY | PROVIDERS: Visit Provider Radiology Diagnostic Radiology | DX: M25.552 Pain in left hip (principal); Z96.642 Presence of left artificial hip joint; M97.02XD Periprosthetic fracture around internal prosthetic left hip joint, subsequent encounter | CPT/HCPCS: 72170; 73501 ==

== ENCOUNTER 2024-11-29 09:07 | Outpatient (REF) | payer MEDICARE, SELFPAY ==
--- NOTE | ~2024-11-29 | CT_ITS ---
CLINICAL HISTORY: M97.02XA - Periprosthetic fracture around internal prosthetic left hip j... CT left hip without contrast Comparison: DX/NE/SR - XR HIP LT 1V - 10/31/24 09:17 EDT DX/SR - XR PELVIS 1-2V - 10/31/24 09:17 EDT DX/SR - XR HIP LT 1V - 07/29/24 10:29 EST CR/NE/SR - XR HIP LT W PEL1V - 04/18/24 08:00 EDT CR/SR - XR HIP LT W PEL1V - 04/11/24 08:26 EDT Findings: No acute fracture or dislocation. Status post left total hip arthroplasty. There is a sideplate and cerclage wires at the previously seen fracture of the greater trochanter. There is osseous bridging. A well corticated fracture line is seen, chronic. An acute fracture line is not evident, however there is beam hardening artifact which limits evaluation. Lucency /decreased bone mineralization at the greater trochanter is again seen, although with limited visualization due to beam hardening artifact. Lucency in acetabulum is not visualized; particle disease is not suspected in the acetabulum.Decreased bone mineralization. Mild degenerative change of the pubic symphysis. There is no joint effusion. There is no fluid collection. The muscles are normal in attenuation and bulk for the patient's age. Moderate calcified atherosclerotic disease. Impression: No acute findings. Intact left total hip arthroplasty status post open reduction internal fixation of the previously seen fracture of the greater trochanter with evidence of healing. This document has been electronically signed by: Jaylin Pereyra MD on 11/29/2024 23:17:36
--- OUTSIDE RECORDS SUMMARY | 2024-11-29 09:21 | XMS_ITS | Clinical Summary ---
Author Organization [facility] Address [address] [place] [address] Care Team Providers Care Garnett Machine Operator Helper Name Role Phone Billy Floyd MD Primary Care Provider [phone] Allergies Active Allergy Reactions Criticality Noted Date Comments Itraconazole Anaphylaxis High 01/30/2018 Medications buPROPion (WELLBUTRIN XL) 300 MG 24 hr [...] 1 tablet by mouth nightly. Active Calcium Carbonate-Vitam in D (CALCIUM-VITAMI N D3 PO) Take 1 tablet by mouth [...] of Binge Drinking Not on file 01/21 Comments Unknown Sex and Gender Information Value Date Recorded Sex Assigned at Not on file Legal Sex Female 1:30 PM EDT Gender Identity Not on file Sexual Orientation [...] Density (Females,Ag es 65 and older) 2014 COVID-19 Vaccine ( - 2023-2 5 season) 2024 RSV Vaccine 60 years and old er and Patients (1 - 1-dose 75+ series) 2024 Influenza Vaccine 02/21/2025 05/16/2006 Hepatitis B Vaccines Aged Out No long er eligible based on patient's age to complete this topic Medical Devices Implanted Type Area Aircraft Seat Upholsterer Device Identifier Shelf Expiration Date Model / Serial / Lot 7-13 Rise 8mm Cage Implanted:Qt y: 1 on 02/06/2018 by Shemar Small MD at [facility] Cage N/A: Spine Lumbar [employer] 193.001 / / 35mm Deangelo Implanted:Qt y: 1 on 02/06/2018 by Shemar Small MD at [facility] Nail/Deangelo N/A: Spine Lumbar [employer] PER[employer] [id number] / / 40mm Deangelo Implanted:Qt y: 1 on 02/06/2018 by Shemar Small MD at [facility] Nail/Deangelo N/A: Spine Lumbar [employer] A[employer] PER[employer]HERA [id number] / / 6.5 X 55mm Voyager Screw Implanted:Qt y: 1 on 02/06/2018 by Shemar Small MD at [facility] Screw N/A: Spine Lumbar [employer] [id number] / / 6.5 X 50mm Voyager Screw Implanted:Qt y: 1 on 02/06/2018 by Shemar Small MD at [facility] Screw N/A: Spine Lumbar [employer] [id number] / / 6.5 X 45mm Voyager Screw Implanted:Qt y: 2 on 02/06/2018 by Shemar Small MD at [facility] Screw N/A: Spine Lumbar [employer] PER[employer] [id number] / / Fibrinet Implanted:Qt y: 1 on 02/06/2018 by Shemar Small MD at [facility] Tissue N/A: Spine Lumbar Other 03/20/2018 [id number] / / [id number] Insurance MEDICARE PART A [facility] Advance Directives * Full Code (Latest Code Status on File) Date Activated Date Inactivated Comments 02/06/2018 3:26 PM Care Teams Garnett Machine Operator Helper Relationship Specialty Start Date End Date Billy Floyd MD [address] [address] PCP - General Internal Medicine 01/30/18
--- OUTSIDE RECORDS SUMMARY | 2024-11-29 09:21 | XMS_ITS | Continuity of Care Document ---
Author Organization [facility] Address [address] [place] [address] Phone Care Team Providers Care Cognos Report Developer Name Role Phone Van KAY, RVT, RPVI, David Unavailable U navailable Allergies, Adverse Reactions, Alerts Substance Reaction Status Criticality itraconazole Active No Information Medications Medication Instructions Dosage Effective Dates (start - stop) Status Comments Eliquis 5 mg tablet take 1 tablet by ora l route 2 times every day (start after completion of her current Eliquis RX) - Active Eliquis 5 mg tablet take 1 tablet by ora l route 2 times every day 5 MG - Active Eliquis 5 mg tablet 2 tablets twice a da y for 1 week, the take 1 tablet twice a day - Active Wellbutrin XL 150 mg 24 hr tablet, extended release - Active Vesicare 5 mg tablet - Active Procedures Procedure Date PT Did Not Receive Services Duplex Scan-extrem Veins; Uni/ CT & [place] A PT Did Not Receive Services Duplex Scan-extrem Veins; Uni/ [place] & [place] F Office/Oupt E&M New Pt 30 Mins- CT & [place] Duplex Scan-extrem Veins; Uni/ [place] & [place] J Advance Directives Directive Yes / No Effective Date File Name No Information Encounters Encounter Description Practice Location Reason(s) For Visit Diagnoses Date Provider Providers Copied on Encounter [facility], [address] [place] [address] [address], [id number], [place] tel:[phone] CVR - [place] No Information 5 Van KAY RVT, RUKHSANA Hernandez. [address] [place] [address], [place], [place], [id number] , [place]. tel:[phone] Referring Provider: Billy Turcios, [address] [place] [address] Suite [facility], [place], [address]. tel:[phone] [facility], [address] [place] [address] Dr [address], [place], [id number], [place] [phone] CVR - [place] Pain in left leg 5 Van KAY RVT, RUKHSANA Hernandez. [address] [place] [address], [place], [place], [id number] , [place]. tel:[phone] Referring Provider: Billy Turcios, [address] [place] [address] Suite [facility], [place], [address]. tel:[phone] [facility], [address] [place] [address] Dr [address], [place], [id number], [place] tel:[phone] CVR - [place] No Information 5 Van KAY RVT, RUKHSANA Hernandez. [address] [place] [address], [place], [place], [id number] , [place]. tel:[phone] Referring Provider: Billy Turcios, [address] [place] [address] Suite [facility], [place], [address]. tel:[phone] [facility], [address] [place] [address] Dr [address], [place], [id number], [place] tel:[phone] CVR - [place] Chronic embolism and thrombosis of left femoral veinPain in left leg 5 Van KAY RVT, RUKHSANA Hernandez. [address] [place] [address], [place], [place], [id number] , [place]. tel:[phone] Referring Provider: Billy Floyd MD , [facility] [address], [place], [address]. tel:[phone] Office/Oupt E&M New Pt 30 Mins- CT & [place] [facility], [address] [place] [address] [address] [address], [place], [id number], tel:[phone] CVR - [facility] Chronic venous hypertension (idiopathic) without complications of left lower extremityPostt hrombotic syndrome with other complications of left lower extremityLymph edema, not elsewhere classifiedHere ditary lymphedema 5 Van KAY, KOBI, RUKHSANA Hernandez. [address] [place] [address], [place], [place], [id number] , [place]. tel:[phone] [facility], [address] [place] [address] 1000, [place], [id number], tel:[phone] CVR [facility] Pain in left leg 5 Van KAY, KOBI, RUKHSANA Hernandez. [address] [place] [address], [place], [place], [id number] , [place]. tel:[phone] Referring Provider: David Araujo MD, KOBI, RUKHSANA, [address] [place] [address], [address]. tel:[phone] Family History Family Member Type Diagnosis Age At Onset No Information Payers Payer name Insurance type Covered libertarian ID Authoriza tion(s) Medicare SUZY JOY [id number] [facility] AARP Supplement CI [id number] Social History Type Description Quantity Date Captured Comments Sex Female Smoking Status No Information Chief Complaint And Reason For Visit No Information Reason For Referral Reason For Referral No Information Plan Of Treatment Date Type Action Status Goal Diet education completed Goal Tobacco cessation counseling completed Referral Ordered: Weight management: Referral to physician timeframe: 3 Months (related to Body mass index (BMI) 25.0-25.9, adult) ordered History Of Present Illness Encounter Date Complaint [...]
--- OUTSIDE RECORDS SUMMARY | 2024-11-29 09:21 | XMS_ITS | Clinical Summary ---
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
== END 2024-11-29 09:08 | disposition home or self-care (01) ==
LOC: HO.CT 09:07
PROVIDERS: Visit Provider Orthopaedic Surgery
DX: M97.02XA Periprosthetic fracture around internal prosthetic left hip joint, initial encounter (principal)
CPT/HCPCS: 73700

== ENCOUNTER → 2024-11-29 09:08 | Outpatient (BNV) | payer MEDICARE, SELFPAY | PROVIDERS: Visit Provider Radiology Diagnostic Radiology | DX: M97.02XA Periprosthetic fracture around internal prosthetic left hip joint, initial encounter (principal) | CPT/HCPCS: 73700 ==

== ENCOUNTER → 2025-01-27 11:10 | Outpatient (BNVA) | payer MEDICARE, SELFPAY | PROVIDERS: PCP Internal Medicine | DX: Z01.818 Encounter for other preprocedural examination (principal) ==

== ENCOUNTER 2025-02-04 10:06 | Outpatient (REF) | payer MEDICARE, SELFPAY ==
--- OUTSIDE RECORDS SUMMARY | 2025-01-30 07:34 | XMS_ITS | Continuity of Care Document ---
Author Organization [facility] Address [address] [place] [address] Phone Care Team Providers Care Ekg/Ecg Technician Name Role Phone Van KAY, RVT, RPVI, [...] Providers Copied on Encounter [facility], [address] [place] [address] [address], [id number], [phone] CVR - [place] - [place] No Information 5 Van KAY RVT, RUKHSANA Hernandez. [address] [place] [address], [place], [place], [id number] , [place]. tel:[phone] [facility], [address] [place] [address] [address], [place], [id number], tel:[phone] CVR - [place] - [place] No Information 5 Van KAY RVT, RUKHSANA Hernandez. [address] [place] [address], [place], [place], [id number] , [place]. tel:[phone] Referring Provider: Billy Turcios, [address] [place] [address], [address]. tel:[phone] [facility], [address] [place] [address] [address], [place], [id number], tel:[phone] CVR - [place] Pain in left leg 5 Van KAY RVT, RUKHSANA Hernandez. [address] [place] [address], [place], [place], [id number] , [place]. tel:[phone] Referring Provider: Billy Turcios, [address] [place] [address], [place], [address]. tel:[phone] [facility], [address] [place] [address] [address], [id number], [place] tel:[phone] CVR - [place] No Information 5 Van KAY RVT, RUKHSANA Hernandez. [address] [place] [address], [place], [place], [id number] , [place]. [phone] Referring Provider: Billy Turcios, [address] [place] [address], [place], [address]. tel:[phone] [facility], [address] [place] [address] [facility] [address] [address], [place], [id number], [place] tel:[phone] CVR - [place] - [place] Chronic embolism and thrombosis of left femoral veinPain in left leg 5 Van KAY RVT, RUKHSANA Hernandez. [address] [place] [address], [place], [place], [id number] , [place]. [phone] Referring Provider: Billy Floyd MD J, [address] [place] [address] [address], [place], [address]. tel:[phone] Office/Oupt E&M New Pt 30 Mins- CT & [place] [facility], [address] [place] [address] [facility] 1000[facility] 1000[place], [id number], [place] tel:[phone] CVR - [place] - [place] Chronic venous hypertension (idiopathic) without complications of left lower extremityPostt hrombotic syndrome with other complications of left lower extremityLymph edema, not elsewhere classifiedHere ditary lymphedema 5 Van KAY RVT, RUKHSANA Hernandez. [address] [place] [address], [place], [place], [id number] , [place]. tel:[phone] [place] [facility], [address] [place] [address] [facility] 1000[facility] 1000[place], [id number], [place] [phone] CVR - [facility] Pain in left leg 5 Van KAY RVT, RPVI Robert. [address] [place] [address], [place], [place], [id number] , [place]. tel:[phone] Referring Provider: David Araujo MD, RVT, RPVI, [address] [place] [address], [place], [address]. tel:[phone] Family History Family Member Type Diagnosis Age At Onset No Information Payers Payer name Insurance type Covered libertarian ID Authoriza tion(s) Medicare SUZY JOY [id number] [facility] AARP Supplement [id number] Social History Type Description Quantity Date [...]
--- OUTSIDE RECORDS SUMMARY | 2025-01-30 23:59 | XMS_ITS | Continuity of Care Document ---
Author Organization [facility] Address [address] [place] [address]- Care Team Providers Care Post Splitter Name Role Phone Mariel KAY, Billy Turcios Primary Care Physician [facility] [id number] Date(s): 01/23/25 - 01/30/25 [facility] [address] [place] [address]- Attending Physician: Homer Green MD Referring Physician: Akhil Donato MD Encounter Type: Office Visit Allergies, Adverse Reactions, Alerts Substance Criticality Severity Reaction Reaction Severity Status Sporanox Edema of throat Acti ve Medications Ambien Tablet = 5 mg, By Mouth, Daily at bedtime, PRN sleep, 0 Refills, Soft Stop, 07/03/09 3:56:59 PM EST Start Date: 07/03/09 Stop Date: 07/09/09 Status: Ordered Repeat number: 1 BuPROpion = 150 mg, By Mouth, Daily, 0 Refills, Maintenance, 02/23/22 1:58:00 PM EDT, Partial fill upon patientrequest if the prescription is for a schedule II opioid drug. Start Date: 02/23/22 Status: Ordered Repeat number: 1 Claritin 10 mg oral tablet 10 mg, 1, tablet, By Mouth, Daily, PRN, # 30 tablet, Refills 0, Maintenance, Congestion, 04/10/24 10:48:00 AM EDT, Partial fill upon patient request if the prescription is for a schedule II opioid drug. Start Date: 04/10/24 Status: Ordered Quantity: 30.0 Unit: tablet Repeat number: 1 Meloxicam Daily, 0 Refills, Maintenance, 03/18/24 9:33:00 AM EDT, Partial fill upon patient request if the prescription is for a schedule II opioid drug. Start Date: 03/18/24 Status: Ordered Repeat number: 1 Prozac Capsule 40 mg, By Mouth, Daily, Refills 0, Tot. Refills 0, 11/26/07 1:27:01 PM EDT Start Date: 11/26/07 Status: Ordered Repeat number: 1 solifenacin 5 mg oral tablet 1 tablet = 5 mg, By Mouth, Daily, # 30 tablet, 0 Refills, Maintenance, 03/18/24 9:33:00 AM EDT, Tablet, Partial fill upon patient request if the prescription is for a schedule II opioid drug. Start Date: 03/18/24 Status: Ordered Quantity: 30.0 Unit: tablet Repeat number: 1 Problem List Condition Confirmation Course Effective Dates Status Health St atus Informant Dyspnea on exertion Confirmed Active MDD (major depressive disorder) Confirmed Active Menopause Confirmed Active Osteopenia Confirmed Active Social History Social History Type Response Smoking Status Former smoker, quit more than 30 days ago entered on: 03/18/24 Sex Sex Representation Female (finding) EKG study * Event Display: ECG 12-Lead Authored Date: Please click on pdf link to open report * Event Display: ECG 12-Lead Authored Date: Ventricular Rate: 75 BPM Atrial Rate: 75 BPM P-R Interval: 176 ms QRS Duration: 86 ms Q-T Interval: 408 ms QTC Calculation(Bazett): 455 ms P [place]: 35 degrees R [place]: 37 degrees T [place]: 40 degrees Normal sinus rhythm Low voltage QRS Nonspecific ST and T wave abnormality Abnormal ECG When compared with ECG of 27-Jul-2023 13:36, No significant change was found Confirmed by Gerald Keller ([id number]) on 01/23/2025 3:22:24 PM [place]: Gerald Keller Cardiology Outpatient Note * Peter KAY, Homer Johnson: PERFORM Event Display: Cardiology Note Office Authored Date: Patient: ??OLESYA, SINGH ? Age:??74 Years?Sex:??Female?:??1950?? Indication for Consult PRE-OP HIP REPLACEMENT History of Present Illness/Interval History HISTORY OF PRESENT ILLNESS ?? A 74-year-old female presents for follow-up for preoperative clearance for hip replacement surgery.She saw her primary care doctor last week for the same.?? She underwent left total hip replacement in March 2024.?? Soon postoperatively she had a left femur fracture.?? She was reoperated on and reports to me that she has significant blood loss, needing 4 units of transfusion.?? She is still cannot walk with a normal gait and there is plan to reoperate on the left hip again.? Denies chest pain, exertional dyspnea, syncope, presyncope, orthopnea, PND, lower extremity edema, or other cardiac symptoms. ? ASSESSMENT AND PLAN ?? 74-year-old female with no significant cardiac history presents as referral for preoperative clearance.?? She was seen in the preoperative medicine clinic in February 2024 prior to her initial left hipreplacement, was seen by our nurse practitioner Sara in March who provided subsequent preoperative risk assessment.?? She was also seen by her primary care provider last week for preoperative risk assessment, although I do not have the EKG or clinic note to review at this time. ?? She does not have an elevated cardiac risk compared to age-matched peers.?? She has an abnormal butstable ECG and has had a normal echocardiogram in the past.?? She does not require further cardiac workup prior to surgery.?? In the future, she does not require cardiology for preop risk assessment.?? It can be done by her primary care provider or the preoperative medicine clinic.?? She can follow- up with cardiology as needed. ?? Note created with the assistance of [employer] scribe software. ?? Homer Green MD [facility] [phone] ?? [address] [place] [address] Review of Systems 10+ system ROS performed, pertinent positives and negatives in HPI and below. ??See scanned patientquestionnaire. Physical Exam Vitals & Measurements HR:??81??(Peripheral)?? BP:??113/78?? SpO2:??100%?? HT:??168??cm?? WT:??73.4??kg?? BMI:??26.01?? Weight lb/oz: 161 lb 13 oz Gen: pleasant, in no distress on room air, ambulating with cane Resp: lungs clear to auscultation bilaterally CV: normal rate, regular rhythm, no murmurs rubs or gallops. Ext: ??No JVD. ??No lower extremity edema. No carotid bruits.?? Assessment/Plan Pre-op exam Ordered: ECG 12 Lead ?? Allergies Sporanox??(Edema of throat) Home Medications Ambien Tablet, 5 mg, By Mouth, Daily at bedtime, PRN BuPROpion, 150 mg, By Mouth, Daily Claritin 10 mg oral tablet, 10 mg= 1 tablet, By Mouth, Daily, PRN Meloxicam, Daily Prozac Capsule, 40 mg, By Mouth, Daily solifenacin 5 mg oral tablet, 5 mg= 1 tablet, By Mouth, Daily Diagnostic Impression ECG ECG 12-Lead * Preliminary * ?? 14:33:32 Please click on pdf link to open report ?? ECG 12-Lead * Preliminary * ?? 14:33:32 Ventricular Rate: 75 BPM Atrial Rate: 75 BPM P-R Interval: 176 ms QRS Duration: 86 ms Q-T Interval: 408 ms QTC Calculation(Bazett): 455 ms P [place]: 35 degrees R [place]: 37 degrees T [place]: 40 degrees Normal sinus rhythm Low voltage QRS Nonspecific ST and T wave abnormality Abnormal ECG When compared with ECG of 27-Jul-2023 13:36, No significant change was found ?? [place]: , Echo Echocardiogram - Complete ?? 08:26:31 Summary The left ventricle is normal in size, wall thickness and systolic function. The ejection fraction is 55-65%. No regional wall motion abnormalities seen. Normal diastolic function. The right ventricle is normal in size and function. No significant valve disease. ?? Comparison Comparison is made to the study of December 12, 2012. There is no significant change. ?? Signature ?? Signed By: Terrence Reed MD Problem List/Past Medical History Ongoing Dyspnea on exertion MDD (major depressive disorder) Menopause Osteopenia Procedure/Surgical History Esophagogastroduodenoscopy and biopsy: 04/20/21 Colonoscopy: 04/20/21 Colonoscopy with polypectomy and biopsy of colon: 05/24/18 Social History Alcohol Use: Never. Substance Abuse Use: Never. Tobacco Use: Former smoker, quit more than 30 days ago. Family History Father: Cardiovascular disease Son: Cardiovascular disease Sister: DVT - Deep vein thrombosis Patient Care team information Care Team Personnel Name: Mariel KAY, Billy Turcios Position: [facility] Outreach Member Role: PCP Address: [address] [place] [address] Telecom: Name: Jah KAY, Shemar Eastman Position: [facility] BAND MACHINE OPERATOR MD Member Role: Lifetime BAND MACHINE OPERATOR Physician Address: [address] [place], [place] [address]s [facility] Physician Extender - [place], [place] [address] Telecom: Care Team Related Persons Name: JAMILA SANTIAGO Name: JAMILA ESTEVEZ Insurance Providers Guarantor name: [employer] Plan Information #: 1 Payer: MEDICARE B Payer Identifier: KARI Member Number: [id number] Group Number: Subscriber Identifier: [id number] Relationship to Subscriber: self Coverage Type: NA Coverage Verification Date: NA Telecom: NA Address: Health Plan Information #: 2 Payer: [employer] SECONDARY ONLY Payer Identifier: Member Number: [id number] Group Number: Subscriber Identifier: [id number] Relationship to Subscriber: self Coverage Type: MEDICARE Coverage Verification Date: Telecom: Address:
--- NOTE | ~2025-02-04 | US_ITS ---
EXAMINATION: US TRIPLEX LOWER EXTREMITY, LEFT CLINICAL INFORMATION: R60.9 - Edema, unspecified, chronic DVT, preoperative planning for joint replacement 02/18/2025 COMPARISON: None available. TECHNIQUE: Color-flow triplex imaging with spectral analysis and compression Doppler were performed on the left lower extremity. FINDINGS: Common femoral vein is patent with normal direction of flow. There is a continuous venous waveform the demonstrates normal respiratory variability. There is a duplicated superficial femoral vein in the distal thigh. The deeper segment is not completely compressible containing hypoechoic material and no flow on color Doppler or spectral interrogation. The venous waveform is documented in the more superficial branch. There is a duplicated branch of the popliteal vein. Popliteal vein contains hypoechoic material and is noncompressible. There is no flow on color Doppler and spectral interrogation. The duplicated branch is patent with a venous waveform. Other deep veins are patent with flow on color Doppler and spectral analysis. US/US venous duplex LE LT IMPRESSION: Examination is positive for deep vein thrombosis in the distal femoral vein and popliteal vein. This could be acute, but chronic is not ruled out. 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 The deeper branch of the distal femoral vein duplicated system is occluded and the duplicated popliteal vein is also occluded. Electronically signed by: Vlad Sánchez MD 02/04/2025 11:22 AM EDT
--- OUTSIDE RECORDS SUMMARY | 2025-02-04 11:08 | XMS_ITS | Clinical Summary ---
Author Organization [facility] Address [address] [place] [address] Care Team Providers Care [employer] Lookout Name Role Phone Billy Floyd MD Primary Care Provider [phone] Allergies Active Allergy Reactions Criticality Noted Date [...] 72 02/07/2018 11:17 AM EDT Temperature 36.8 C (98.2 F) 02/07/2018 11:17 AM EDT Respiratory Rate 18 02/07/2018 11:17 AM EDT [...] this topic Medical Devices Implanted Type Area Cnc Manufacturing Engineer Device Identifier Shelf Expiration Date Model / Serial / Lot 7-13 Rise 8mm Cage Implanted:Qt y: 1 on 02/06/2018 by Shemar Small MD at [facility] Cage N/A: Spine Lumbar [employer] [id number] / / 35mm Deangelo Implanted:Qt y: 1 on 02/06/2018 by Shemar Small MD at [facility] Nail/Deangelo N/A: Spine Lumbar [employer] [id number] / / 40mm Deangelo Implanted:Qt y: 1 on 02/06/2018 by Shemar Small MD at [facility] Nail/Deangelo N/A: Spine Lumbar [employer] [id number] / / 6.5 X 55mm Voyager Screw Implanted:Qt y: 1 on 02/06/2018 by Shemar Small MD at [facility] Screw N/A: Spine Lumbar [employer] [id number] / / 6.5 X 50mm Voyager Screw Implanted:Qt y: 1 on 02/06/2018 by Shemar Small MD at [facility] Screw N/A: Spine Lumbar [employer] [id number] / / 6.5 X 45mm Voyager Screw Implanted:Qt y: 2 on 02/06/2018 by Shemar Small MD at [facility] Screw N/A: Spine Lumbar [employer] [id number] / / Fibrinet Implanted:Qt y: 1 on 02/06/2018 by Shemar Small MD at [facility] Tissue N/A: Spine Lumbar Other 03/20/2018 [id number] / / [id number] Insurance MEDICARE PART A & B [facility] Advance Directives * Full Code (Latest Code Status on File) Date Activated Date Inactivated Comments 02/06/2018 3:26 PM Care Teams [place] Relationship Specialty Start Date End Date Billy Floyd MD [address] [address] PCP - General Internal Medicine 01/30/18
--- OUTSIDE RECORDS SUMMARY | 2025-02-04 11:09 | XMS_ITS | Data Portability ---
Author Organization [facility], Main Office Address [address] [place] [address] Care Team Providers Care Semiconductor Development Technician Name Role Phone MAGGY FLOYD Primary Care Provider [facility] Referring Provider [phone] ALLEN RUBALCAVA Orthopedic Surgeon MARTHA PACE Telephoto Installer JAKE BERNARD Pit Supervisor SHARON CASTANEDA Referring Provider JOSE TEMPLETON Orthopedic Surgeon JARAD RO Referring Provider ELADIA DUKE Phys. [facility] JJ DONATO Referring Provider [phone] OFE AMIN Referring Provider Assessment Encounter Date Assessment Date Assessment LastModified by Organization Details LastModified Time 05/09/2024 05/09/2024 This service was provided using telemedicine. Patient consented to video & audio visit Patient was located in the [facility]. Provider was located in the office. No other persons participated in the telemedicine visit except for the patient unless otherwise indicated here. Total time of visit was 25 minutes. joanne Not available 05/10/2024 08:50:33 01/17/2025 01/17/2025 Patient is at lo w risk for cardiopulmonary complications with planned procedure based on comorbidities, good exertional tolerance and overall procedure risk. Patient advised to avoid aspirin for 14 days and NSAIDS for 7 days prior. May proceed to scheduled surgery as planned. [email or web address] Not available 01/17/2025 11:01:46 Plan of Treatment Reminders Order Date Submit Date Provider Last Modified By Organization Details Last Modified Time Details Appointments FOLLOW UP 2024 10:15A Tae kohli MD Not available Not available Not available Lab CBC w/ auto diff 2024 025 [facility] (Centralized Electronic Ordering - All Locations), Patient Can Go To The Location Of Their Choice, 01/18/2025 06:07:29 PT/PTT, plasma 2024 025 [facility] (Centralized Electronic Ordering - All Locations), Patient Can Go To The Location Of Their Choice, 01/18/2025 06:07:30 CMP, serum or plasma 2024 025 [facility] (Centralized Electronic Ordering - All Locations), Patient Can Go To The Location Of Their Choice, 01/18/2025 06:07:30 lipid panel, serum 2024 025 [facility] (Centralized Electronic Ordering - All Locations), Patient Can Go To The Location Of Their Choice, 12/19/2024 06:07:31 vitamin D, 25-hydrox y, total, serum 2024 025 [facility] (Centralized Electronic Ordering - All Locations), Patient Can Go To The Location Of Their Choice, 10/08/2024 18:05:52 BNP (B-type natriuret ic peptide), serum or plasma 2024 025 [facility] (Centralized Electronic Ordering - All Locations), Patient Can Go To The Location Of Their Choice, 10/08/2024 18:05:52 CMP, serum or plasma 2024 025 [facility] (Centralized Electronic Ordering - All Locations), Patient Can Go To The Location Of Their Choice, 10/08/2024 18:05:51 CBC w/ auto diff 2024 025 [facility] (Centralized Electronic Ordering - All Locations), Patient Can Go To The Location Of Their Choice, 10/08/2024 18:05:50 TSH, ultra-sen sitive, serum 2024 025 [facility] (Centralized Electronic Ordering - All Locations), Patient Can Go To The Location Of Their Choice, [id number] 10/08/2024 18:05:52 CBC w/ auto diff 2023 024 [email or web address] [facility] (Centralized Electronic Ordering - All Locations), Patient Can Go To The Location Of Their Choice, 12/06/2024 10:49:51 iron + total iron-bind ing capacity (TIBC), serum 2023 024 [facility] (Centralized Electronic Ordering - All Locations), Patient Can Go To The Location Of Their Choice, 05/10/2024 09:04:52 ferritin, serum or plasma 2023 024 [facility] (Centralized Electronic Ordering - All Locations), Patient Can Go To The Location Of Their Choice, 05/10/2024 09:04:52 Referral orthopedi c surgeon referral - Surgery done on left hip by Dr Donato in March 2024. She would like a second opinion concernin g her options since she is still having pain and difficult y walking. She spoke to Dr Donato about this and he reportedl y encourage d her to get a second opinion. 2024 025 [facility] Orthopedic Scheduling Dept, [address] [place], [address], 01/06/2025 20:18:56 Procedures None recorded. Surgeries None recorded. Imaging electroca rdiogram 2024 025 [email or web address] In-Office Order, Internal Use Only DO Not Attach Compendium DO Not Attach Compendium, Do Not Delete/merge, [id number] 01/17/2025 12:40:09 MAMMO, screening , bilateral - Perform Diagnosti c Mammogram and Breast Ultrasoun d if needed / Perform Ultrasoun d Guided Aspiratio n and/or Breast Biopsy if warranted 2024 025 [facility] Radiology, [address], [place], [address], 12/13/2024 13:51:12 Medication Orders zolpidem 5 mg tablet [address] [facility], [address] [place], [address], 12/14/2024 08:38:25 calcium 600 mg (as carbonate )-vitamin D3 10 mcg (400 unit) tablet [address] [facility], [address] [place], [address], 10/07/2024 11:18:45 Patient TargetsNo targets recorded. Patient Instructions Encounter Date Encounter Id Patient Instructions Last Modified By Organization Details Last Modified Time 05/07/2024 [id number] I have reviewed the note and agree with the assessment and plan of care. [email or web address] Not available 05/07/2024 11:42:02 05/09/2024 [id number] osteoporosis: care instructions [email or web address] Not available 05/10/2024 09:03:32 anemia: care instructions [email or web address] Not available 05/10/2024 09:04:49 At [facility] follow up visit, all current and discharge medications (OTC, herbal therapies, supplements) reviewed and reconciled with patient and or caregiver, including potential side effects, drug interactions, instructions, and the consequences of not taking medication. Reviewed potential barriers to medication adherence, such as side effects from medication or cost of medication. [email or web address] Not available 05/09/2024 15:17:45 12/13/2024 [id number] insomnia: care instructions [email or web address] Not available 12/13/2024 13:48:13 high cholesterol: care instructions [email or web address] Not available 12/13/2024 13:48:13 preventing falls: care instructions [email or web address] Not available 12/13/2024 13:40:12 well visit, over 65: care instructions [email or web address] Not available 12/13/2024 13:40:12 Reason for Referral Orthopedic Surgeon Referral for Pain of left hip joint Surgery done on left hip by Dr Donato in March 2024. She would like a second opinion concerning her options since she is still having pain and difficulty walking. She spoke to Dr Donato about this and he reportedly encouraged her to get a second opinion. Referring Physician: Maggy Floyd, Family Medicine, Encounter Date: 12/13/2024 Results Created Date Observation Date Name Description Value Unit Range Abnormal Flag Note LastModifiedBy Organization Detail LastModifiedTime 10/08/1910/07/2024 CBC WITH DIFFE RENTI AL/PL ATELE T WBC 8.1 x10e3 /uL 3.4-10 .8 normal Not Available [facility] ([facility]) [address] [place], [address], 10/08/2024 18:05:50 10/08/19 25 10/07/2024 CBC WITH DIFFE RENTI AL/PL ATELE T RBC 4.54 x10e6 /uL 3.77-5 .28 normal Not Available [facility] ([facility]) [address] [place], [address], 10/08/2024 18:05:50 10/08/19 25 10/07/2024 CBC WITH DIFFE RENTI AL/PL ATELE T hemoglobin 13.5 g/dL 11.1-1 5.9 normal Not Available [facility] ([facility]) [address] [place], [address], 10/08/2024 18:05:50 10/08/19 25 10/07/2024 CBC WITH DIFFE RENTI AL/PL ATELE T hematocrit 40.2 % 34.0-4 6.6 normal Not Available [facility] ([facility]) [address] [place], [address], 10/08/2024 18:05:50 10/08/19 25 10/07/2024 CBC WITH DIFFE RENTI AL/PL ATELE T MCV 89 fL 79-97 normal Not Available [facility] ([facility]) [address] [place], [address], 10/08/2024 18:05:50 10/08/19 25 10/07/2024 CBC WITH DIFFE RENTI AL/PL ATELE T MCH 29.7 pg 26.6-3 3.0 normal Not Available [facility] ([facility]) [address] [place], [address], 10/08/2024 18:05:50 10/08/19 25 10/07/2024 CBC WITH DIFFE RENTI AL/PL ATELE T MCHC 33.6 g/dL 31.5-3 5.7 normal Not Available [facility] ([facility]) [address] [place], [address], 10/08/2024 18:05:50 10/08/19 25 10/07/2024 CBC WITH DIFFE RENTI AL/PL ATELE T RDW 13.3 % 11.7-1 5.4 Not Available [facility] ([facility]) [address] [place], [address], 10/08/2024 18:05:50 10/08/19 25 10/07/2024 CBC WITH DIFFE RENTI AL/PL ATELE T platelets 369 x10e3 /uL 150-45 0 normal Not Available [facility] ([facility]) [address] [place], [address], 10/08/2024 18:05:50 10/08/19 25 10/07/2024 CBC WITH DIFFE RENTI AL/PL ATELE T neutrophils 65 % not estab. normal Not Available [facility] ([facility]) [address] [place], [address], 10/08/2024 18:05:50 10/08/19 25 10/07/2024 CBC WITH DIFFE RENTI AL/PL ATELE T lymphs 22 % not estab. normal Not Available [facility] ([facility]) [address] [place], [address], 10/08/2024 18:05:50 10/08/19 25 10/07/2024 CBC WITH DIFFE RENTI AL/PL ATELE T monocytes 9 % not estab. normal Not Available [facility] ([facility]) [address] [place], [address], 10/08/2024 18:05:50 10/08/19 25 10/07/2024 CBC WITH DIFFE RENTI AL/PL ATELE T eos 2 % not estab. normal Not Available [facility] ([facility]) [address] [place], [address], 10/08/2024 18:05:50 10/08/19 25 10/07/2024 CBC WITH DIFFE RENTI AL/PL ATELE T basos 1 % not estab. normal Not Available [facility] ([facility]) [address] [facility], [place], [address], 10/08/2024 18:05:50 10/08/19 25 10/07/2024 CBC WITH DIFFE RENTI AL/PL ATELE T immature cells WHARF BUILDER Not Available [facility] ([facility]) [address] [place], [address], 10/08/2024 18:05:50 10/08/19 25 10/07/2024 CBC WITH DIFFE RENTI AL/PL ATELE T neutrophils (absolute) 5.3 x10e3 /uL 1.4-7. 0 normal Not Available [facility] ([facility]) [address] [place], [address], 10/08/2024 18:05:50 10/08/19 25 10/07/2024 CBC WITH DIFFE RENTI AL/PL ATELE T lymphs (absolute) 1.8 x10e3 /uL 0.7-3. 1 normal Not Available [facility] ([facility]) [address] [place], [address], 10/08/2024 18:05:50 10/08/19 25 10/07/2024 CBC WITH DIFFE RENTI AL/PL ATELE T monocytes(ab solute) 0.7 x10e3 /uL 0.1-0. 9 normal Not Available [facility] ([facility]) [address] [facility], [place], [address], 10/08/2024 18:05:50 10/08/19 25 10/07/2024 CBC WITH DIFFE RENTI AL/PL ATELE T eos (absolute) 0.2 x10e3 /uL 0.0-0. 4 normal Not Available [facility] ([facility]) [address] [facility], [place], [address], 10/08/2024 18:05:50 10/08/19 25 10/07/2024 CBC WITH DIFFE RENTI AL/PL ATELE T baso (absolute) 0.1 x10e3 /uL 0.0-0. 2 normal Not Available [facility] ([facility]) [address] [facility], [place], [address], 10/08/2024 18:05:50 10/08/19 25 10/07/2024 CBC WITH DIFFE RENTI AL/PL ATELE T immature granulocytes 1 % not estab. Not Available [facility] ([facility]) [address] [facility], [place], [address], 10/08/2024 18:05:50 10/08/19 25 10/07/2024 CBC WITH DIFFE RENTI AL/PL ATELE T immature grans (abs) 0.1 x10e3 /uL 0.0-0. 1 Not Available [facility] ([facility]) [address] [place], [address], 10/08/2024 18:05:50 10/08/19 25 10/07/2024 CBC WITH DIFFE RENTI AL/PL ATELE T NRBC WHARF BUILDER Not Available [facility] ([facility]) [address] [facility], [place], [address], 10/08/2024 18:05:50 10/08/19 25 10/07/2024 CBC WITH DIFFE RENTI AL/PL ATELE T hematology comments: WHARF BUILDER Not Available [facility] ([facility]) [address] [facility] [place], [address], 10/08/2024 18:05:50 10/08/19 25 10/07/2024 COMP. METAB OLIC PANEL (14) glucose 108 mg/dL 70-99 above high normal Not Available [facility] ([facility]) [address] [facility] [place], [address], 10/08/2024 18:05:51 10/08/19 25 10/07/2024 COMP. METAB OLIC PANEL (14) BUN 18 mg/dL 8-27 normal Not Available [facility] ([facility]) [address] [facility] [place], [address], 10/08/2024 18:05:51 10/08/19 25 10/07/2024 COMP. METAB OLIC PANEL (14) creatinine 1.12 mg/dL 0.57-1 .00 above high normal Not Available [facility] ([facility]) [address] [facility] [place], [address], 10/08/2024 18:05:51 10/08/19 25 10/07/2024 COMP. METAB OLIC PANEL (14) eGFR 51 mL/mi n/1.7 3 >59 below low normal Not Available [facility] ([facility]) [address] [place], [address], 10/08/2024 18:05:51 10/08/19 25 10/07/2024 COMP. METAB OLIC PANEL (14) BUN/creatini ne ratio 16 12-28 normal Not Available [facility] ([facility]) [address] [place], [address], 10/08/2024 18:05:51 10/08/19 25 10/07/2024 COMP. METAB OLIC PANEL (14) sodium 139 mmol/ L 134-14 4 normal Not Available [facility] ([facility]) [address] [place], [address], 10/08/2024 18:05:51 10/08/19 25 10/07/2024 COMP. METAB OLIC PANEL (14) chloride 102 mmol/ L 96-106 normal Not Available [facility] ([facility]) [address] [place], [address], 10/08/2024 18:05:51 10/08/19 25 10/07/2024 COMP. METAB OLIC PANEL (14) carbon dioxide, total 19 mmol/ L 20-29 below low normal Not Available [facility] ([facility]) [address] [place], [address], 10/08/2024 18:05:51 10/08/19 25 10/07/2024 COMP. METAB OLIC PANEL (14) calcium 9.6 mg/dL 8.7-10 .3 normal Not Available [facility] ([facility]) [address] [place], [address], 10/08/2024 18:05:51 10/08/19 25 10/07/2024 COMP. METAB OLIC PANEL (14) protein, total 7.1 g/dL 6.0-8. 5 normal Not Available [facility] ([facility]) [address] [place], [address], 10/08/2024 18:05:51 10/08/19 25 10/07/2024 COMP. METAB OLIC PANEL (14) albumin 4.6 g/dL 3.8-4. 8 normal Not Available [facility] ([facility]) [address] [place], [address], 10/08/2024 18:05:51 10/08/19 25 10/07/2024 COMP. METAB OLIC PANEL (14) globulin, total 2.5 g/dL 1.5-4. 5 Not Available [facility] ([facility]) [address] [place], [address], 10/08/2024 18:05:51 10/08/19 25 10/07/2024 COMP. METAB OLIC PANEL (14) bilirubin, total 0.4 mg/dL 0.0-1. 2 normal Not Available [facility] ([facility]) [address] [place], [address], 10/08/2024 18:05:51 10/08/19 25 10/07/2024 COMP. METAB OLIC PANEL (14) alkaline phosphatase 128 IU/L 44-121 above high normal Not Available [facility] ([facility]) [address] [place], [address], 10/08/2024 18:05:51 10/08/19 25 10/07/2024 COMP. METAB OLIC PANEL (14) AST (SGOT) 19 IU/L 0-40 normal Not Available [facility] ([facility]) [address] [place], [address], 10/08/2024 18:05:51 10/08/19 25 10/07/2024 COMP. METAB OLIC PANEL (14) ALT (SGPT) 11 IU/L 0-32 normal Not Available [facility] ([facility]) [address] [place], [address], 10/08/2024 18:05:51 10/08/19 25 10/08/2024 COMP. METAB OLIC PANEL (14) potassium 4.4 mmol/ L 3.5-5. 2 normal Not Available [facility] ([facility]) [address] [place], [address], 10/08/2024 18:05:51 10/08/19 25 10/08/2024 VITAM IN [...] um and D. Deana nesbitt [place]: The [facility] . 2. Soila montalvo [place], Maribell salinas [place], Bisch off-F errar i POSEY, et al. Evalu ation , treat ment, and preve ntion of vitam in D defic iency : an Endoc rine Socie ty clini pantera pract ice guide line. JCEM. 2010; 96(7) :1911 -30. Not Available [facility] ([facility]) [address] [place], [address], 10/08/2024 18:05:52 10/08/1910/08/2024 B-TYP E NATRI URETI C PEPTI DE B-type natriuretic peptide 14.7 pg/mL 0.0-10 0.0 Sieme ns [facility] XP metho dolog y Not Available [facility] ([facility]) [address] [place], [address], 10/08/2024 18:05:52 10/08/1910/08/2024 TSH RFX ON ABNOR MAL TO FREE T4 TSH 4.210 uIU/m L 0.450- 4.500 normal Not Available [facility] ([facility]) [address] [place], [address], 10/08/2024 18:05:52 12/19/19 25 12/19/2024 LIPID PANEL cholesterol, total 239 mg/dL 100-19 9 above high normal Not Available [facility] ([facility]) [address] [place], [address], 12/19/2024 06:07:31 12/19/19 25 12/19/2024 LIPID PANEL triglyceride s 97 mg/dL 0-149 normal Not Available [facility] ([facility]) [address] [place], [address], 12/19/2024 06:07:31 12/19/19 25 12/19/2024 LIPID PANEL HDL cholesterol 87 mg/dL >39 normal Not Available [facility]) [address] [place], [address], 12/19/2024 06:07:31 12/19/19 25 12/19/2024 LIPID PANEL VLDL cholesterol pantera 17 mg/dL 5-40 Not Available [facility] ([facility]) [address] [place], [address], 12/19/2024 06:07:31 12/19/1912/19/2024 LIPID PANEL LDL chol calc ([facility]) 135 mg/dL 0-99 above high normal Not Available [facility] ([facility]) [address] [place], [address], 12/19/2024 06:07:31 12/19/1912/19/2024 LIPID PANEL LDL calc comment: WHARF BUILDER Not Available [facility] ([facility]) [address] [place], [address], 12/19/2024 06:07:31 01/18/20 25 01/17/2025 CBC WITH DIFFE RENTI AL/PL ATELE T WBC 6.4 x10e3 /uL 3.4-10 .8 normal Not Available [facility] ([facility]) [address] [place], [address], 01/18/2025 06:07:29 01/18/20 25 01/17/2025 CBC WITH DIFFE RENTI AL/PL ATELE T RBC 4.34 x10e6 /uL 3.77-5 .28 normal Not Available [facility] ([facility]) [address] [place], [address], 01/18/2025 06:07:29 01/18/20 25 01/17/2025 CBC WITH DIFFE RENTI AL/PL ATELE T hemoglobin 13.2 g/dL 11.1-1 5.9 normal Not Available [facility] ([facility]) [address] [place], [address], 01/18/2025 06:07:29 01/18/20 25 01/17/2025 CBC WITH DIFFE RENTI AL/PL ATELE T hematocrit 40.2 % 34.0-4 6.6 normal Not Available [facility] ([facility]) [address] [place], [address], 01/18/2025 06:07:29 01/18/20 25 01/17/2025 CBC WITH DIFFE RENTI AL/PL ATELE T MCV 93 fL 79-97 normal Not Available [facility] ([facility]) [address] [place], [address], 01/18/2025 06:07:29 01/18/20 25 01/17/2025 CBC WITH DIFFE RENTI AL/PL ATELE T MCH 30.4 pg 26.6-3 3.0 normal Not Available [facility] ([facility]) [address] [place], [address], 01/18/2025 06:07:29 01/18/20 25 01/17/2025 CBC WITH DIFFE RENTI AL/PL ATELE T MCHC 32.8 g/dL 31.5-3 5.7 normal Not Available [facility] ([facility]) [address] [place], [address], 01/18/2025 06:07:29 01/18/20 25 01/17/2025 CBC WITH DIFFE RENTI AL/PL ATELE T RDW 12.9 % 11.7-1 5.4 Not Available [facility] ([facility]) [address] [place], [address], 01/18/2025 06:07:29 01/18/20 25 01/17/2025 CBC WITH DIFFE RENTI AL/PL ATELE T platelets 281 x10e3 /uL 150-45 0 normal Not Available [facility] ([facility]) [address] [facility], [place], [address], 01/18/2025 06:07:29 01/18/20 25 01/17/2025 CBC WITH DIFFE RENTI AL/PL ATELE T neutrophils 63 % not estab. normal Not Available [facility] ([facility]) [address] [facility], [place], [address], 01/18/2025 06:07:29 01/18/20 25 01/17/2025 CBC WITH DIFFE RENTI AL/PL ATELE T lymphs 25 % not estab. normal Not Available [facility] ([facility]) [address] [facility], [place], [address], 01/18/2025 06:07:29 01/18/20 25 01/17/2025 CBC WITH DIFFE RENTI AL/PL ATELE T monocytes 9 % not estab. normal Not Available [facility] ([facility]) [address] [facility], [place], [address], 01/18/2025 06:07:29 01/18/20 25 01/17/2025 CBC WITH DIFFE RENTI AL/PL ATELE T eos 2 % not estab. normal Not Available [facility] ([facility]) [address] [facility], [place], [address], 01/18/2025 06:07:29 01/18/20 25 01/17/2025 CBC WITH DIFFE RENTI AL/PL ATELE T basos 1 % not estab. normal Not Available [facility] ([facility]) [address] [facility], [place], [address], 01/18/2025 06:07:29 01/18/20 25 01/17/2025 CBC WITH DIFFE RENTI AL/PL ATELE T immature cells WHARF BUILDER Not Available [facility] ([facility]) [address] [place], [address], 01/18/2025 06:07:29 01/18/20 25 01/17/2025 CBC WITH DIFFE RENTI AL/PL ATELE T neutrophils (absolute) 4.1 x10e3 /uL 1.4-7. 0 normal Not Available [facility] ([facility]) [address] [place], [address], 01/18/2025 06:07:29 01/18/20 25 01/17/2025 CBC WITH DIFFE RENTI AL/PL ATELE T lymphs (absolute) 1.6 x10e3 /uL 0.7-3. 1 normal Not Available [facility] ([facility]) [address] [place], [address], 01/18/2025 06:07:29 01/18/20 25 01/17/2025 CBC WITH DIFFE RENTI AL/PL ATELE T monocytes(ab solute) 0.6 x10e3 /uL 0.1-0. 9 normal Not Available [facility] ([facility]) [address] [place], [address], 01/18/2025 06:07:29 01/18/20 25 01/17/2025 CBC WITH DIFFE RENTI AL/PL ATELE T eos (absolute) 0.2 x10e3 /uL 0.0-0. 4 normal Not Available [facility] ([facility]) [address] [place], [address], 01/18/2025 06:07:29 01/18/20 25 01/17/2025 CBC WITH DIFFE RENTI AL/PL ATELE T baso (absolute) 0.0 x10e3 /uL 0.0-0. 2 normal Not Available [facility] ([facility]) [address] [place], [address], 01/18/2025 06:07:29 01/18/20 25 01/17/2025 CBC WITH DIFFE RENTI AL/PL ATELE T immature granulocytes 0 % not estab. Not Available [facility] ([facility]) [address] [facility], [place], [address], 01/18/2025 06:07:29 01/18/20 25 01/17/2025 CBC WITH DIFFE RENTI AL/PL ATELE T immature grans (abs) 0.0 x10e3 /uL 0.0-0. 1 Not Available [facility] ([facility]) [address] [facility], [place], [address], 01/18/2025 06:07:29 01/18/20 25 01/17/2025 CBC WITH DIFFE RENTI AL/PL ATELE T NRBC WHARF BUILDER Not Available [facility] ([facility]) [address] [facility], [place], [address], 01/18/2025 06:07:29 01/18/20 25 01/17/2025 CBC WITH DIFFE RENTI AL/PL ATELE T hematology comments: WHARF BUILDER Not Available [facility] ([facility]) [address] [facility], [place], [address], 01/18/2025 06:07:29 01/18/20 25 01/18/2025 COMP. METAB OLIC PANEL (14) glucose 82 mg/dL 70-99 normal Not Available [facility] ([facility]) [address] [facility], [place], [address], 01/18/2025 06:07:30 01/18/20 25 01/18/2025 COMP. METAB OLIC PANEL (14) BUN 14 mg/dL 8-27 normal Not Available [facility] ([facility]) [address] [facility], [place], [address], 01/18/2025 06:07:30 01/18/20 25 01/18/2025 COMP. METAB OLIC PANEL (14) creatinine 1.00 mg/dL 0.57-1 .00 normal Not Available [facility] ([facility]) [address] [facility] [place], [address], 01/18/2025 06:07:30 01/18/20 25 01/18/2025 COMP. METAB OLIC PANEL (14) eGFR 59 mL/mi n/1.7 3 >59 below low normal Not Available [facility] ([facility]) [address] [facility], [place], [address], 01/18/2025 06:07:30 01/18/20 25 01/18/2025 COMP. METAB OLIC PANEL (14) BUN/creatini ne ratio 14 12-28 normal Not Available [facility] ([facility]) [address] [facility], [place], [address], 01/18/2025 06:07:30 01/18/20 25 01/18/2025 COMP. METAB OLIC PANEL (14) sodium 140 mmol/ L 134-14 4 normal Not Available [facility] ([facility]) [address] [place], [address], 01/18/2025 06:07:30 01/18/20 25 01/18/2025 COMP. METAB OLIC PANEL (14) potassium 4.7 mmol/ L 3.5-5. 2 normal Not Available [facility] ([facility]) [address] [place], [address], 01/18/2025 06:07:30 01/18/20 25 01/18/2025 COMP. METAB OLIC PANEL (14) chloride 103 mmol/ L 96-106 normal Not Available [facility] ([facility]) [address] [place], [address], 01/18/2025 06:07:30 01/18/20 25 01/18/2025 COMP. METAB OLIC PANEL (14) carbon dioxide, total 20 mmol/ L 20-29 normal Not Available [facility] ([facility]) [address] [facility] [place], [address], 01/18/2025 06:07:30 01/18/20 25 01/18/2025 COMP. METAB OLIC PANEL (14) calcium 9.8 mg/dL 8.7-10 .3 normal Not Available [facility] ([facility]) [address] [facility], [place], [address], 01/18/2025 06:07:30 01/18/20 25 01/18/2025 COMP. METAB OLIC PANEL (14) protein, total 7.1 g/dL 6.0-8. 5 normal Not Available [facility] ([facility]) [address] [facility] [place], [address], 01/18/2025 06:07:30 01/18/20 25 01/18/2025 COMP. METAB OLIC PANEL (14) albumin 4.7 g/dL 3.8-4. 8 normal Not Available [facility] ([facility]) [address] [facility] [place], [address], 01/18/2025 06:07:30 01/18/20 25 01/18/2025 COMP. METAB OLIC PANEL (14) globulin, total 2.4 g/dL 1.5-4. 5 Not Available [facility] ([facility]) [address] [place], [address], 01/18/2025 06:07:30 01/18/20 25 01/18/2025 COMP. METAB OLIC PANEL (14) bilirubin, total 0.2 mg/dL 0.0-1. 2 normal Not Available [facility] ([facility]) [address] [facility] [place], [address], 01/18/2025 06:07:30 01/18/20 25 01/18/2025 COMP. METAB OLIC PANEL (14) alkaline phosphatase 96 IU/L 44-121 normal Not Available [facility] ([facility]) [address] [facility], [place], [address], 01/18/2025 06:07:30 01/18/20 25 01/18/2025 COMP. METAB OLIC PANEL (14) AST (SGOT) 17 IU/L 0-40 normal Not Available [facility] ([facility]) [address] [facility], [place], [address], 01/18/2025 06:07:30 01/18/20 25 01/18/2025 COMP. METAB OLIC PANEL (14) ALT (SGPT) 9 IU/L 0-32 normal Not Available [facility] ([facility]) [address] [facility], [place], [address], 01/18/2025 06:07:30 01/18/20 25 01/17/2025 PT AND PTT INR 1.0 0.9-1. 2 Refer ence inter kendy is for non-a ntico agula phuc patie nts. Sugge sted INR thera peuti c range for Vitam in K antag onist thera py: Stand stan Dose (mode rate inten sity thera peuti c range ): 2.0 - 3.0 Highe r inten sity thera peuti c range 2.5 - 3.5 Not Available [facility] ([facility]) [address] [facility], [place], [address], 01/18/2025 06:07:30 01/18/20 25 01/17/2025 PT AND PTT prothrombin time 10.5 sec 9.1-12 .0 normal Not Available [facility] ([facility]) [address] [place], [address], 01/18/2025 06:07:30 01/18/20 25 01/17/2025 PT AND PTT APTT 24 sec 24-33 normal This test has not been valid ated for monit oring unfra ction ated hepar in thera py. aPTT- based thera peuti c range s for unfra ction ated hepar in thera py have not been estab wil lazo. For gener al guide lines on Hepar in monit oring , refer to the [facility] y[facility]vany of Kieran walters. Not Available [facility] ([facility]) [address], [place], [address], 01/18/2025 06:07:30 04/17/20 24 2024 XR, hip + pelvi s, unila teral No observ ation record ed. [facility] (Medical Records) [address] [place], [address], 2024 15:49:57 04/18/20 24 04/18/2024 XR, hip, unila teral No observ ation record ed. [facility] (Medical Records) [address] [place], [address], 04/18/2024 09:20:48 04/19/20 24 04/19/2024 XR, pelvi s No observ ation record ed. [facility] (Medical Records) [address] [place], [address], 04/20/2024 10:54:01 07/29/19 25 07/26/2024 US, duple x, venou s, extre mity, compl ete No observ ation record ed. [facility] [address], [place], [address], 07/29/2024 09:27:26 10/11/19 25 10/10/2024 XR, chest [...] surger y. IMPRES BLANE: Normal chest. WSN: [id number] Orderi ng Physic meghna: Kurtis Booker Dictat ed By: Rory Bhatti MD Dictat ed Date/T nataliya: 5:04 pm Review ed By: Rory Bhatti MD Signed By: Rory Bhatti MD Signed Date/T nataliya: 5:04 pm Transc ribed By: CSB Transc ribed Date/T nataliya: 5:02 pm Patien t Class: Outpat ient [email or web address] [facility] (Outpt Imaging) [address], [place], [address], 10/10/2024 19:54:30 10/11/1910/10/2024 imagi ng/di agnos tic resul t No observ ation record ed. [facility] [address], [place], [address], 10/11/2024 10:44:14 11/21/1911/19/2024 US, duple x, arter ial, lower extre mity, compl ete No observ ation record ed. [facility] [address] [facility] [address], [place], [address], 11/20/2024 09:02:12 01/18/2001/17/2025 elect rocar diogr am No observ ation record ed. [email or web address] In-Office Order Internal Use Only DO Not Attach Compendium DO Not Attach Compendium, Do Not Delete/merge, [id number] 01/17/2025 12:38:10 01/18/20 elect rocar diogr am No observ ation record ed. [email or web address] In-Office Order Internal Use Only DO Not Attach Compendium DO Not Attach Compendium, Do Not Delete/merge, [id number] 01/17/2025 11:04:37 Result Notes Documentation Provider Name and Address Organization Details Recorded Time Xr, Chest, 2 View : Chest 2 Views Frontal and Lat Reason: dyspnea COMPARISON: 01/25/2018 FINDINGS: LINES AND TUBES: None. LUNGS AND PLEURA: Clear lungs. Normal pulmonary vascularity. No pleural effusion. No pneumothorax. HEART, MEDIASTINUM AND ZEE: Heart is normal in size. Normal mediastinal and hilar contour. BONES AND SOFT TISSUES: No acute abnormality. Epigastric/left upper quadrant surgery. IMPRESSION: Normal chest. WSN: [id number] Ordering Physician: Ilda Booker Dictated By: Anatoliy Bhatti MD Dictated Date/Time: 10/10/24 5:04 pm Reviewed By: Anatoliy Bhatti MD Signed By: Anatoliy Bhatti MD Signed Date/Time: 10/10/24 5:04 pm Transcribed By: KAN Transcribed Date/Time: 10/10/24 5:02 pm Patient Class: Outpatient Ilda Booker PA-C [address], [address], [facility] 10/10/2024 19:54:30 Problems Name Problem SNOMED Code Status Onset Date Resolution Date Notes Provider Name and Address Organization Details Recorded Time Abdomina l pain 96535993 Completed 201102/04/2014 RECORDED 05/16/20 12 9:09AM BY ARIANA CARRION MA, ANNOTATI ON/ADDEN ELLIE Kelley [address], [address], [facility] 2 09:55:02 Allergic rhinitis 46602379 Active 2013 SUZY Torres, [facility] 8 08:50:35 Anxiety state 144427194 Active 2013 SUZY Torres, [facility] 8 08:49:46 Patient status finding [id number] Completed 201307/01/2014 RECORDED 08/06/19 14 9:46AM BY KATTY JO I, OFFICE VISIT Maggy kohli MD [address] [place], [address], [facility] 6 06:40:11 Urinary bladder problem 126502478 Active 2013 Mookie harris [place] null, [facility] 8 08:50:06 Elevated blood-pr essure reading without diagnosi s of hyperten blane 382369376 Active 2013 Mookie harris [place] null, [facility] 8 08:50:30 Screenin g for malignan t neoplasm of breast Completed 201102/04/2014 RECORDED 05/16/20 12 9:09AM BY ARIANA CARRION MA, ISHA ON/FRANK kohli MD [address] [facility] [address], [place], [address], [facility] 6 06:40:11 Screenin g for malignan t neoplasm of cervix Completed 201102/04/2014 RECORDED 05/16/20 12 9:09AM BY ARIANA CARRION MA, ISHA ON/FRANK kohli MD [address] [facility] [address], [place], [address], [facility] 6 06:40:11 Chest pain 24766602 Completed 201002/04/2014 DATE: 02/05/20 11; IMPRESSI ON: L ANTERIOR CHEST WALL PAIN FOLLOWIN G PULLING INJURY WHILE WEEDING YESTERDA Y. SUSPECT STRAIN OF INTERCOS TALS, PT ELECTS FOR XRAY. REST, HEAT/ICE , NSAID DURING DAY AND NARCOTIC MED AT NIGHT PRN. WILL CONTACT PT WITH RESULT WHEN AVAIL.; RECORDED 05/16/20 12 9:09AM BY ARIANA CARRION MA, MERRITTATI ON/FRANK kohli MD [address] [facility] [address], [place], [address], [facility] 6 06:40:11 Degenera tion of interver tebral disc 37585990 Completed 201102/04/2014 RECORDED 05/16/20 12 9:09AM BY ARIANA CARRION MA, ANNOTATI ON/ADDEN DUM Maggy kohli MD [address], [place], [address], [facility] 6 06:40:11 History of depressi on 526246197 Completed 201310/10/2014 RECORDED 08/06/19 14 9:43AM BY KATTY JO I, OFFICE VISIT Maggy kohli MD [address], [place], [address], [facility] 6 06:40:11 Depressi ve disorder 49193328 Completed 201202/04/2014 RECORDED 08/09/19 13 4:37PM BY MOOKIE YOU MA, ISHA ON/ADDEN DUM Maggy kohli MD [address], [place], [address], [facility] 6 06:40:10 Dizzines s and giddines s 693620514 Completed 200702/04/2014 RESOLVED DATE: 11/05/19 08; RECORDED 11/05/19 08 5:56PM BY MAGGY CHANDRA MD, ANNOTMYCHAL ON/FRANK kohli MD [address], [place], [address], [facility] 6 06:40:11 Dysphagi a 91597216 Completed 201102/04/2014 RECORDED 05/16/20 12 9:09AM BY ARIANA CARRION MA, ANNOTATI ON/ADDEN WAQAS kohli MD [address], [place], [address], [facility] 6 06:40:11 Dysuria 17181084 Completed 200702/04/2014 RESOLVED DATE: 11/05/19 08; RECORDED 11/05/19 08 5:56PM BY MAGGY CHANDRA MD, MERRITTATI / Maggy kohli MD [address], [place], [address], [facility] 6 06:40:11 External hemorrho ids 30159611 Active 2013 SUZY Torres, [facility] 8 08:49:52 Gastroes ophageal reflux disease 276905770 Active 2013 SUZY Torres, [facility] 8 08:49:49 Adult health examinat ion Completed 201202/04/2014 RECORDED 11/23/19 13 1:10PM BY KATTY JO I, ISHA / Maggy kohli MD [address], [place], [address], [facility] 6 06:40:11 Adult health examinat ion Completed 201307/01/2014 RECORDED 08/06/19 14 10:23AM BY ESTUARDO FERNANDEZ, HISTORIC AL SUMMARY Maggy kohli MD [address], [place], [address], [facility] 6 06:40:11 General examinat ion of patient Completed 200702/04/2014 RECORDED 11/05/19 08 5:57PM BY MAGGY CHANDRA MD, ISHA / Maggy kohli MD [address], [place], [address], [facility] 6 06:40:11 Hypercho lesterol emia 69640606 Completed 201302/21/2017 RECORDED 08/06/19 14 9:43AM BY KATTY JO I, OFFICE VISIT Maggy kohli MD [address] [facility] [address], [place], [address], [facility] 7 13:46:36 Insomnia 193701407 Active 2013 SUZY Torres, [facility] 8 08:50:24 Kidney disease 40117737 Completed 201310/10/2014 RECORDED 08/06/19 14 9:43AM BY KATTY JO I, OFFICE VISIT Maggy kohli MD [address] [facility] [address], [place], [address], [facility] 6 06:40:11 Laborato ry procedur e performe d 986542491 Completed 201307/01/2014 RECORDED 09/13/19 14 11:38AM BY DRISS FERRER, LAB REQ Maggy kohli MD [address] [address], [place], [address], [facility] 6 06:40:11 Lipoma of skin and subcutan eous tissue of face 35198398 Completed 201202/04/2014 RECORDED 08/01/19 13 9:48AM BY MAGGY CHANDRA MD, ANNOTATI ON/ADDEN DUM Maggy kohli MD [address] [facility] [address], [place], [address], [facility] 6 06:40:10 Malaise and fatigue 082584496 Completed 201202/04/2014 RECORDED 11/23/19 13 1:10PM BY KATTY JO I, ANNOTATI ON/ADDEN DUM SUZY Torres, [facility] 8 08:50:10 Postmeno pausal state 28671153 Active 2013 IMPRESSI ON: MANY OF HER SX (FATIGUE , HAIR CHANGES, SKIN DRYNESS, VAGINAL DRYNESS, COLD INTOLERA NCE) CAN BE RELATED TO MENOPAUS E. 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 SUZY Torres, [facility] 8 08:50:03 Migraine 65166955 Active 2013 SUZY Torres, [facility] 8 08:50:33 Oophorec alec Active 2013 RIGHT Mookie SUZY Goncalves, [facility] 8 08:49:59 Generali zed osteoart hritis 488921104 Active [address] Sanjeev kohli MD [address], [place], [address], [facility] 6 17:42:58 Osteopor osis 15638609 Active 2013 Mookie SUZY Goncalves, [facility] 8 08:50:38 Sign or symptom of the urinary system 27322629 Completed 200702/04/2014 RESOLVED DATE: 11/05/19 08; IMPRESSI ON: D/C DETROL SAMPLES OF ENABLEX FOR TRIAL; RECORDED 11/05/19 08 5:56PM BY MAGGY CHANDRA MD, ANNOTATI ON/FRANK kohli MD [address], [place], [address], [facility] 6 06:40:11 Pain of joint of hand 929700427 Completed 201102/04/2014 RECORDED 05/16/20 12 9:09AM BY ARIANA CARRION MA, MERRITTATI ON/FRANK kohli MD [address], [place], [address], [facility] 6 06:40:11 Knee pain Completed 201102/04/2014 RECORDED 05/16/20 12 9:09AM BY ARIANA CARRION MA, ANNOTATI ON/ADDEN DUM Maggy kohli MD [address] [facility] [address], [place], [address], [facility] 6 06:40:11 Joint pain in ankle and foot Completed 201102/04/2014 RECORDED 05/16/20 12 9:09AM BY ARIANA CARRION MA, ANNOTATI ON/ADDEN DUM Maggy kohli MD [address] [facility] [address], [place], [address], [facility] 6 06:40:11 Tobacco user [id number] Completed 201307/01/2014 RECORDED 02/05/20 14 9:01AM BY KATTY JO I, OFFICE VISIT Maggy kohli MD [address] [facility] [address], [place], [address], [facility] 6 06:40:10 History of clinical finding in subject 102641393 Completed 201307/01/2014 RECORDED 08/06/19 14 9:44AM BY KATTY JO I, OFFICE VISIT Maggy kohli MD [address] [facility] [address], [place], [address], [facility] 6 06:40:11 Primary malignan t neoplasm of kidney 89595947 Active 2005 Maggy kohli MD [address] [facility] [address], [place], [address], [facility] 1 10:56:21 Dyspnea 784593722 Completed 201302/04/2014 IMPRESSI ON: NO EVIDENCE FOR HEART OR LUNG DS. SHE WILL USE OTC LORATIDI NE IF HER SX WORSEN.; RECORDED 08/06/19 14 7:03AM BY KATTY JO I, ANNOTATI ON/ADDEN DUM Krishan Mchenry null, [facility] 5 11:52:26 Screenin g for malignan t neoplasm of colon Completed 201102/04/2014 RECORDED 05/16/20 12 9:09AM BY ARIANA CARRION MA, ANNOTATI ON/ADD DUM Maggy kohli MD [address] [address], [place], [address], [facility] 6 06:40:11 Conjunct ival hemorrha ge 98072125 Completed 200702/04/2014 RESOLVED DATE: 11/05/19 08; RECORDED 11/05/19 08 5:56PM BY MAGGY CHANDRA MD, ANNOTATI ON/ADD DUM Maggy kohli MD [address] [address], [place], [address], [facility] 6 06:40:10 Suicide attempt Active 2013 Mookie harris MA null, [facility] 8 08:50:40 Administ ration of diphther ia and tetanus vaccine Completed 201202/04/2014 RECORDED 11/23/19 13 1:10PM BY ISHA GARY ON/ WAQAS kohli MD [address] [address], [place], [address], [facility] 6 06:40:11 Dermatop hytosis of the body Completed 201102/04/2014 RECORDED 07/20/20 12 11:31AM BY JORGE WILEY MA, ISHA ON/ADD DUM Maggy kohli MD [address] [address], [place], [address], [facility] 6 06:40:10 Urge incontin ence of urine 39574907 Completed 201102/04/2014 RECORDED 05/16/20 12 9:09AM BY ARIANA CARRION MA, MERRITTATI ON/ADD WAQAS kohli MD [address] [facility] [address], [place], [address], [facility] 6 06:40:11 Urinary incontin ence 570072269 Active 2013 Mookie harris MA null, [facility] 8 08:50:14 Urinary tract infectio us disease 37741346 Completed 200702/04/2014 RESOLVED DATE: 11/05/19 08; RECORDED 11/05/19 08 5:57PM BY MAGGY CHANDRA MD, ANNOTATI ON/ADD WAQAS kohli MD [address] [facility] [address], [place], [address], [facility] 6 06:40:11 Benign paroxysm al position al vertigo 000696117 Completed 201202/04/2014 IMPRESSI ON: SHE WILL TRY EXERCISE S AND IF THE VERTIGO PERSISTS SHE WILL CALL AND WE WILL DO A REFERRAL TO [facility].; RECORDED 08/01/19 13 9:48AM BY MAGGY CHANDRA MD, ISHA ON/ADD WAQAS kohli MD [address] [facility] [address], [place], [address], [facility] 6 06:40:10 Abdomina l pain 48518227 Completed 201103/03/2014 RECORDED 05/16/20 12 9:09AM BY ARIANA CARRION MA, ISHA ON/ADDELLIE Engel [address] [facility] [address], [place], [address], [facility] 2 09:55:02 Anxiety state 879203581 Completed 201303/03/2014 RECORDED 02/05/20 14 7:08AM BY MERRITT GARYATI ON/ADDEN DUM Mookie harris MA null, [facility] 8 08:49:46 Patient status finding [id number] Completed 201303/03/2014 RECORDED 02/05/20 14 7:07AM BY MERRITT GARYATI ON/ADDEN DUM Maggy kohli MD [address] [facility] [address], [place], [address], [facility] 6 06:40:11 Urinary bladder problem 446247395 Completed 201303/03/2014 RECORDED 02/05/20 14 7:08AM BY MERRITT GARYATI ON/ADDEN DUM Mookie harris MA null, [facility] 8 08:50:06 Screenin g for malignan t neoplasm of breast Completed 201103/03/2014 RECORDED 05/16/20 12 9:09AM BY ARIANA CARRION MA, ISHA ON/ADDEN WAQAS kohli MD [address] [facility] [address], [place], [address], [facility] 6 06:40:11 Screenin g for malignan t neoplasm of cervix Completed 201103/03/2014 RECORDED 05/16/20 12 9:09AM BY ARIANA CARRION MA, ISHA ON/ADDJUAN FRANCISCO kohli MD [address], [place], [address], [facility] 6 06:40:11 Chest pain 22047203 Completed 201003/03/2014 DATE: 02/05/20 11; IMPRESSI ON: L ANTERIOR CHEST WALL PAIN FOLLOWIN G PULLING INJURY WHILE WEEDING YESTERDA Y. SUSPECT STRAIN OF INTERCOS TALS, PT ELECTS FOR XRAY. REST, HEAT/ICE , NSAID DURING DAY AND NARCOTIC MED AT NIGHT PRN. WILL CONTACT PT WITH RESULT WHEN AVAIL.; RECORDED 05/16/20 12 9:09AM BY ARIANA CARRION MA, ISHA ON/ADDEN DUM Maggy kohli MD [address] [facility] [address], [place], [address], [facility] 6 06:40:11 Reduced libido 8373632 Active 2013 IMPRESSI ON: REFERRAL TO ENDO FOR FURTHER EVALUATI ON Mookie harris MA null, [facility] 8 08:50:42 Degenera tion of interver tebral disc 93527096 Completed 201103/03/2014 RECORDED 05/16/20 12 9:09AM BY ARIANA CARRION MA, ISHA ON/ADDEN DUM Maggy kohli MD [address] [address], [place], [address], [facility] 6 06:40:11 History of depressi on 205614799 Completed 201303/03/2014 RECORDED 02/05/20 14 7:08AM BY KATTY JO I, ISHA ON/ADDEN DUM Maggy kohli MD [address] [address], [place], [address], [facility] 6 06:40:11 Depressi ve disorder 82894577 Completed 201203/03/2014 RECORDED 08/09/19 13 4:37PM BY MOOKIE YOU MA, ISHA ON/ADDEN DUM Maggy kohli MD [address] [address], [place], [address], [facility] 6 06:40:10 Dizzines s and giddines s 466607631 Completed 200703/03/2014 RESOLVED DATE: 11/05/19 08; RECORDED 11/05/19 08 5:56PM BY MAGGY CHANDRA MD, ANNOTATI ON/ADDEN DUM Maggy kohli MD [address], [place], [address], [facility] 6 06:40:11 Dysphagi a 19362550 Completed 201103/03/2014 RECORDED 05/16/20 12 9:09AM BY ARIANA CARRION MA, ISHA ON/ADDEN WAQAS kohli MD [address], [place], [address], [facility] 6 06:40:11 Dysuria 08920207 Completed 200703/03/2014 RESOLVED DATE: 11/05/19 08; RECORDED 11/05/19 08 5:56PM BY MAGGY CHANDRA MD, ANNOTATI ON/ADDEN WAQAS kohli MD [address] [facility] [address], [place], [address], [facility] 6 06:40:11 External hemorrho ids 23377759 Completed 201303/03/2014 RECORDED 02/05/20 14 7:07AM BY ISHA GARY ON/ADDEN DUM Mookie harris MA [facility] 8 08:49:52 Gastroes ophageal reflux disease 379440063 Completed 201303/03/2014 RECORDED 02/05/20 14 7:08AM BY ISHA GARY ON/ADDEN DUM [facility] 08:[facility]49 Adult health examinat ion Completed 201203/03/2014 RECORDED 11/23/19 13 1:10PM BY ISHA GARY ON/ADDEN WAQAS kohli MD [address] [facility] [address], [place], [address], [facility] 6 06:40:11 General examinat ion of patient Completed 200703/03/2014 RECORDED 11/05/19 08 5:57PM BY MAGGY CHANDRA MD, ISHA ON/FRANK kohli MD [address], [place], [address], [facility] 6 06:40:11 Hypercho lesterol emia 61826552 Completed 201303/03/2014 RECORDED 02/05/20 14 7:08AM BY ISHA GARY ON/FRANK kohli MD [address], [place], [address], [facility] 7 13:46:36 Kidney disease 69630374 Completed 201303/03/2014 RECORDED 02/05/20 14 7:08AM BY ISHA GARY ON/FRANK kohli MD [address], [place], [address], [facility] 6 06:40:11 Laborato ry procedur e performe d 993184410 Completed 201303/03/2014 RECORDED 02/05/20 14 7:07AM BY ISHA GARY ON/FRANK kohli MD [address], [place], [address], [facility] 6 06:40:11 Lipoma of skin and subcutan eous tissue of face 77251630 Completed 201303/03/2014 RECORDED 02/05/20 14 7:07AM BY ISHA GARY ON/FRANK kohli MD [address], [place], [address], [facility] 6 06:40:10 Malaise and fatigue 120409537 Active 2013 IMPRESSI ON: THIS MAY BE RELATED TO HER DEPRESSI ON AND WELL TO HORMONAL CHANGES. WE WILL REFER HER TO [facility] FOR FURTHER EVALUATI ON AND POSSIBLE HORMONE REPLACEM ENT. SUZY Torres, [facility] 8 08:50:10 Postmeno pausal state 17026040 Completed 201303/03/2014 IMPRESSI ON: MANY OF HER SX (FATIGUE , HAIR CHANGES, SKIN DRYNESS, VAGINAL DRYNESS, COLD INTOLERA NCE) CAN BE RELATED TO MENOPAUS E. 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.; RECORDED 02/05/20 14 7:07AM BY ISHA GARY ON/ADDEN DUM SUZY Torres, [facility] 8 08:50:03 Oophorec alec Completed 201303/03/2014 RIGHT; RECORDED 02/05/20 14 7:08AM BY ISHA GARY ON/ADDEN DUM SUZY Torres, [facility] 8 08:49:59 Sign or symptom of the urinary system 88329358 Completed 200703/03/2014 RESOLVED DATE: 11/05/19 08; IMPRESSI ON: D/C DETROL SAMPLES OF ENABLEX FOR TRIAL; RECORDED 11/05/19 08 5:56PM BY MAGGY CHANDRA MD, ANNOTATI ON/ADD DUM Maggy kohli MD [address], [place], [address], [facility] 6 06:40:11 Pain of joint of hand 682816901 Completed 201103/03/2014 RECORDED 05/16/20 12 9:09AM BY ARIANA CARRION MA, ANNOTATI ON/ADDEN DUM Maggy kohli MD [address], [place], [address], [place] [facility] 6 06:40:11 Knee pain Completed 201103/03/2014 RECORDED 05/16/20 12 9:09AM BY ARIANA CARRION MA, ANNOTATI ON/ADDEN DUM Maggy kohli MD [address] [facility] [address], [place], [address], [facility] 6 06:40:11 Joint pain in ankle and foot Completed 201103/03/2014 RECORDED 05/16/20 12 9:09AM BY ARIANA CARRION MA, ANNOTATI ON/ADDEN DUM Maggy kohli MD [address] [facility] [address], [place], [address], [facility] 6 06:40:11 Dyspnea 950585778 Completed 201303/03/2014 IMPRESSI ON: NO EVIDENCE FOR HEART OR LUNG DS. SHE WILL USE OTC LORATIDI NE IF HER SX WORSEN.; RECORDED 08/06/19 14 7:03AM BY KATTY JO I, MERRITTATI ON/ADDEN DUM Krishan Dominique [facility] 5 11:52:26 Screenin g for malignan t neoplasm of colon Completed 201103/03/2014 RECORDED 05/16/20 12 9:09AM BY ARIANA CARRION MA, MERRITTATI ON/ADDEN DUM Maggy kohli MD [address] [facility] [address], [place], [address], [facility] 6 06:40:11 Conjunct ival hemorrha ge 99371024 Completed 200703/03/2014 RESOLVED DATE: 11/05/19 08; RECORDED 11/05/19 08 5:56PM BY MAGGY CHANDRA MD, ANNOTATI ON/ADDEN DUM Maggy kohli MD [address] [facility] [address], [place], [address], [facility] 6 06:40:10 Administ ration of diphther ia and tetanus vaccine Completed 201203/03/2014 RECORDED 11/23/19 13 1:10PM BY ISHA GARY ON/FRANK kohli MD [address] [address], [facility] [place], [address], [facility] 6 06:40:11 Dermatop hytosis of the body Completed 201103/03/2014 RECORDED 07/20/20 12 11:31AM BY JORGE WILEY MA, ISHA ON/FRANK kohli MD [address] [address], [facility] [place], [address], [facility] 6 06:40:10 Urge incontin ence of urine 82178340 Completed 201103/03/2014 RECORDED 05/16/20 12 9:09AM BY ARIANA CARRION MA, ISHA ON/FRANK kohli MD [address] [address], [place], [address], [facility] 6 06:40:11 Urinary tract infectio us disease 01766198 Completed 200703/03/2014 RESOLVED DATE: 11/05/19 08; RECORDED 11/05/19 08 5:57PM BY MAGGY CHANDRA MD, ISHA ON/FRANK kohli MD [address] [address], [place], [address], [facility] 6 06:40:11 Benign paroxysm al position al vertigo 704685164 Completed 201303/03/2014 IMPRESSI ON: SHE WILL TRY EXERCISE S AND IF THE VERTIGO PERSISTS SHE WILL CALL AND WE WILL DO A REFERRAL TO [facility].; RECORDED 02/05/20 14 7:07AM BY ISHA GARY/FRANK kohli MD [address] [facility] [address], [place], [address], [facility] 6 06:40:10 Mass of body structur e 638797268 Completed 10/10/2014 Maggy kohli MD [address] [facility] [address], [facility] [place] [place], [facility], [facility] 6 06:40:11 Carpal tunnel syndrome 16726901 Active Maggy kohli MD [address] [address], [facility] [place] [place], [facility] 6 06:40:10 Spinal stenosis of lumbar region 11423828 [facility] Dr Raza because she failed conserva tive treatmen t. Had surgery in by Dr Staci kohli MD [address] [address], [place], [address], [facility] 8 10:15:37 Lumbar spondylo sis 540495016 Active Followed by Dr Sanjeev kohli MD [address] [address], [place], 9, [facility] 6 06:40:10 Osteoart hritis of knee 688018970 Active Followed by Dr Sanjeev kohli MD [address] [address], [place], 9, [facility] 6 06:40:10 Generali zed osteoart hritis of the hand 563830614 Active Followed by Dr Sanjeev kohli MD [address] [address], [place], 9, [facility] 6 06:40:10 Scoliosi s of lumbar spine 349179768 Active Followed by Dr Sanjeev kohli MD [address] [address], [place], [address], [facility] 6 06:40:10 Pes anserinu s bursitis 22559782 Active Followed by Dr Sanjeev kohli MD [address], [place], [address], [facility] 6 06:40:10 Degenera tion of lumbar interver tebral disc 66787410 Active Followed by Dr Sanjeev kohli MD [address], [place], [address], [facility] 6 06:40:10 Osteopen ia 356772981 Active Maggy kohli MD [address], [place], [address], [facility] 6 17:42:58 Pain in left lower limb 855488358 Active 2016 Seen by [facility]; started September 2016 Maggy kohli MD [address], [place], [address], [facility] 7 21:02:07 Pain of shoulder region 23823354 Active 2016 Seen by [facility]; started September 2016 Maggy kohli MD [address], [place], [address], [facility] 7 21:02:34 Hyperlip idemia 94737279 Active 2016 Maggy kohli MD [address], [place], [address], [facility] 7 13:48:42 Cliff itis 81863022 Active [address] scan done September 2018 w/o change. Maggy kohli MD [address], [place], [address], [facility] 9 08:31:41 Solitary nodule of lung 898649540 Active 2018 RML; will repeat in 1 year given smoking hx. Maggy kohli MD [address], [place], [address], [facility] 9 08:33:06 Pain of left knee region 02827631558 4109 Active 2021 Followed by [facility]; injected . Maggy kohli MD [address], [place], [address], [facility] 2 16:16:44 Piriform is syndrome 526860626 Active 2021 Nancie Dumont, [facility] [address] [facility] [address], [place], [address], [facility] 2 14:52:33 Pain of sacroili ac joint 582554024 Active 2021 Nancie Dumont, [facility] [address], [place], [address], [facility] 2 14:53:26 Left lower quadrant pain 868076303 Active 2021 Nancie Dumont, [facility] [address] [facility] [address], [place], [address], [facility] 2 15:12:41 Abdomina l pain 31947152 Active 2021 RECORDED 05/16/20 12 9:09AM BY ARIANA CARRION MA, ANNOTATI ON/ADDEN DUM Nancie Dumont [facility] [address] [facility] [address], [place], [address], [facility] 2 09:55:02 Lumbosac ral radiculi tis 26096211 Active [address] Best. Currentl y treated with meds. Also seen by [facility] and injected . Maggy kohli MD [address], [place], [address], [facility] 3 07:41:33 Pain of left thigh 02020314718 9105 Active 2023 Gerardo Bowles santosh, [facility] 4 16:46:52 Pain of left hip joint 99702935420 9100 Active 2023 Seen by [facility] and hip replacem ent recommen ded. Maggy kohli MD [address], [place], [address], [facility] 4 14:11:10 Fracture of neck of femur 1175357 Active 2023 Maggy kohli MD [address], [place], [address], [facility] 4 09:20:04 Dyspnea 564907665 Active 2024 IMPRESSI ON: NO EVIDENCE FOR HEART OR LUNG DS. SHE WILL USE OTC LORATIDI NE IF HER SX WORSEN.; RECORDED 08/06/19 14 7:03AM BY ISHA GARY ON/ADDEN DUM Krishan frost [facility] 5 11:52:26 Vitamin D deficien cy 80087735 Active 2024 Krishan frost [facility] 5 12:01:57 Fatigue 26140287 Active 2024 Krishan frost [facility] 5 12:22:31 Problem Notes None recorded. Procedures Surgical History Date Name Laterality Status Provider Name and Address Organization Details Recorded Time 04/19 revision of hip arthroplasty completed Stephanie Thakur [facility] 4 12:51:04 04/17 Total hip arthroplasty completed Stephanie Thakur [facility] 4 09:50:22 06/07 Advanced Care Planning completed Maggy Floyd MD [address] [facility] [address], [place], [address] , [facility] 3 10:02:52 08/08 injection into lumbar epidural space completed Stephanie Thakur [facility] 3 11:19:32 02/28 arthroscopic knee operation completed Kareem wilkins MA [facility] 2 14:24:10 04/20 Date of Last Colonoscopy completed Janna Garcia [facility] 1 11:25:32 04/20 Colonoscopy completed April Fernandez [facility] 1 15:10:14 04/20 esophagogastroduodenoscopy completed Rina Fernandez [facility] 1 15:10:37 08/13 Six-Item Cognitive Test completed Juliana Ng MA [facility] 1 10:31:00 06/18 Mini-Cog Test completed Katty Mansfield [facility] 9 14:21:34 04/05 Mini-Cog Test completed Katty Mansfield [facility] 8 10:48:47 02/02 decompression of lumbar spine completed Mookie wilkins MA [facility] 2 14:14:37 12/20 Epidurography completed Tisha Ball [facility] 8 13:36:59 05/03 Most Recent Mammogram completed Melanie Urbano [facility] 7 14:25:58 05/03 Mammogram screening completed Mookie wilkins MA [facility] 8 10:02:26 02/21 Fall Risk Assessment completed Katty Mansfield [facility] 7 13:20:20 02/21 Mini-Cog Test completed Katty Mansfield [facility] 7 13:20:30 01/02 Hydrocortisone acetate inj completed Katty Shyla [facility] 7 11:46:08 10/09 Fall Risk Assessment completed Katty Mansfield [facility] 5 11:21:42 10/09 Mini-Cog Test completed Katty Mansfield [facility] 5 11:21:42 04/17 Cancer Surgery completed Katty Mansfield [facility] 8 10:38:08 07/24 Removal kidney open radical completed Kareem wilkins MA [facility] 8 10:02:10 12/22 Hysterectomy completed Katty Mansfield [facility] 8 10:38:08 07/24 Repair bladder defect completed Mookie wilkins MA [facility] 8 10:01:47 07/24 Breast Biopsy completed Katty Mansfield [facility] 5 11:21:42 02/22 Tubal Ligation completed Katty Mansfield [facility] 8 10:38:08 07/11 Appendectomy completed Katty Mansfield [facility] 8 10:38:08 Removal of ovary(s) completed Jere wilkins MA [facility] 8 10:02:41 Imaging Results None recorded. Procedure Notes None recorded. Medical Equipment None Reported. Allergies Allergen ID Allergen Name Allergen Category Reaction Reaction Severity Criticality Documentation Date Start Date Code Code System Note Provider Name and Address Organization Details Recorded Time 7114 Sporanox medicatio n anaphylax is Not available Not available 02/04/20142013 6 RxNorm SUZY Vaughan [place] - [facility] 15:59:28 Medications Name Sig Start Date Stop [...] completed Not Available Not Available Not Available atorvasta tin 10 mg tablet Take 1 tablet every day by oral route at bedtime for 90 days, for choleste rol. 2024 active Not Available Not Available Not Avai lable aspirin 325 mg tablet Take 1 tablet [...] mg tablet TAKE ONE TABLET BY MOUTH ONCE DAILY AT BEDTIME 2024 active Not Available Not Available Not Clifford monroe gabapenti n 100 mg capsule Take 3 [...] RECORDED 10/12/19 12 1:13PM BY IVANA Jain, ANNOTMYCHAL ON/FRANK ALAN; Not Available Not Available Not Available acetamino [...] Available Not Available Eliquis 5 mg tablet 01/17 completed DVT on left Not Available Not Available Not Available Shingrix (PF) 50 mcg/0.5 mL intramusc [...] blood by Pulse oximetry Body temperature Systolic And Diastolic Provider Name and Address Organization Details Last Updated DateTime 165.74 cm 26.4 kg/m2 38554.7 8 g 101 /min 96 % 96 % 97.7 [degF] 123/78 mm[Hg] John perez MA [facility] 5 11:17:40 Date Recorded Body height Body mass index (BMI) Body weight Heart rate Oxygen saturation Oxygen saturation in Arterial blood by Pulse oximetry Body temperature Systolic And Diastolic Provider Name and Address Organization Details Last Updated DateTime 165.74 cm 26.8 kg/m2 00368.9 6 g 85 /min 94 % 94 % 98.2 [degF] 135/76 mm[Hg] Heidy Simon MA [facility] 5 12:59:18 Date Recorded Body height Body mass index (BMI) Body weight Oxygen saturation Oxygen saturation in Arterial blood by Pulse oximetry Heart rate Body temperature Systolic And Diastolic Provider Name and Address Organization Details Last Updated DateTime 165.74 cm 26.8 kg/m2 66269.3 6 g 98 % 98 % 87 /min 98.1 [degF] 130/81 mm[Hg] Lucita Guzman MA [facility] 5 10:49:21 Date Recorded Body height Provider Name an d Address Organization Details Last Updated DateTime 05/09/2024 165.74 cm Betty Patterson LPN [facility] 05/09/2024 15:18:43 Social History Question Answer Notes LastModified by Organizat ion Details LastModified Time Tobacco Smoking Status Former Smoker Not Available [facility] 05/26/2020 03:36:40 Do You Have An Advance Directive? Yes Information not available 06/14/2022 Is Blood Transfusion Acceptable In An Emergency? Yes [id number] Information not available 05/26/2020 What Is Your Level Of Caffeine Consumption? Moderate 2 Cups Of Coffee Daily [id number] Information not available 05/26/2020 How Much Tobacco Do You Chew? None [id number] Information not available 05/26/2020 In The 14 Days Before Symptom Onset, Have You Had Close Contact With A Laboratory-confi rmed COVID-19 While That Case Was Ill? No Information not available 06/14/2022 In The 14 Days Before Symptom Onset, Have You Had Close Contact With A Person Who Is Under Investigation For COVID-19 While That Person Was Ill? No Information not available 06/14/2022 Have You Been To An Area Known To Be High Risk For COVID-19? No Information not available 06/14/2022 Are You Deaf Or Do You Have Serious Difficulty Hearing? Yes Information not available 06/14/2022 What Type Of Diet Are You Following? REGULAR [id number] Information not available 05/26/2020 Which Illicit Or Recreational Drugs Have You Used? None [id number] Information not available 05/26/2020 When Did You Quit Smoking? 16+yearssin ji cary Information not available 03/04/2021 Live Alone Or With Others? With Others Constantinocharan ([place] Information not available 06/14/2022 Do You Take Precautions To Prevent Distracted Driving? Yes Information not available 02/21/2017 How Often Do You Need To Have Someone Help You When You Read Instructions, Pamphlets, Or Other Written Material From Your Doctor Or Pharmacy? Never [email or web address] Roomultzki Information not available 02/21/2017 Have You Served In The ? No [email or web address] Roomultzki Information not available 02/21/2017 Have You Or Anyone In Your Household Had Any Of The Following Symptoms In The Last 14 Days: Sore Throat, Cough, Chills, Body Aches For Unknown Reasons, Shortness Of Breath For Unknown Reasons, Loss Of Smell, Loss Of Taste, Fever At Or Greater Than 100 Degrees Fahrenheit? No Information not available 02/17/2020 Are You Or Anyone In Your Household A Health Care Provider Or Emergency Responder? No Palmer Hargreavesultzki Information not available 02/17/2020 To The Best Of Your Knowledge Have You Been In Close Proximity To Any Individual Who Tested Positive For COVID-19? No ksDada Roomultzki Information not available 02/17/2020 *AWV ONLY* Are You Presently Prescribed Opioid Medication By PCP Or Specialist? If YES -Provider Assess The Benefit For Other, Non-opioid Pain Therapies Instead, Even If The Patient Does Not Have OUD But Is Possibly At Risk. No Information not available 03/04/2021 Have You Recently Traveled To A COVID-19 High Risk Area Or Gathering In The Last 10 Days? No [email or web address] Information not available 08/13/2020 Marital Status Informatio n not available 06/14/2022 What Was The Date Of Your Most Recent Tobacco Screening? 12/13/2024 [email or web address] Information not available 12/13/2024 How Many Children Do You Have? 5 3 Sons And 2 Daughters And 14 GC And 4 GGC [email or web address] Information not available 08/13/2020 What Is Your Current Pack Years? 10packyears Information not available 06/14/2022 Do You Use Protection During Sex? No [id number] Information not available 05/26/2020 Difficulty Reading? Yes Information not available 06/14/2022 Seat Belts Used Routinely Yes Information not available 06/14/2022 Are You Sexually Active? Yes [id number] Information not available 05/26/2020 Smoke Alarm In Home Yes Information not available 06/14/2022 At What Age Did You Start Smoking Tobacco? 16 Quit At 20 Information not available 04/12/2022 Are You Passively Exposed To Smoke? No Information not available 02/21/2017 How Much Tobacco Do You Smoke? 0.5 PPD [id number] Information not available 05/26/2020 Do You Use Sunscreen Routinely? No [id number] Information not available 05/26/2020 How Many Years Have You Smoked Tobacco? 4 [id number] Information not available 05/26/2020 Difficulty Watching TV? No Information not available 06/14/2022 Do You Have Difficulty Walking Or Climbing Stairs? No Information not available 06/14/2022 Sex: Unknown Functional Status Question Answer Note LastModified by Organizat ion Details LastModified Time Do you or have you ever used smokeless tobacco? Never used smokeless tobacco [id number] Information not available 05/26/2020 Are you currently employed? No retired [id number] Information not available 05/26/2020 Difficulty driving at night? Yes Information not available 06/14/2022 Are you able to care for yourself? Yes [id number] Information not available 05/26/2020 Do you have difficulty dressing or bathing? No Information not available 06/14/2022 Do you or have you ever used e-cigarettes or vape? Never used electronic cigarettes Information not available 06/14/2022 What is your exercise level? None [id number] Information not available 05/26/2020 Do you use any illicit or recreational drugs? No Information not available 06/14/2022 Do you or have you ever used any other forms of tobacco or nicotine? No Information not available 06/14/2022 What is your level of alcohol consumption? Occasional [id number] Information not available 05/26/2020 Are you able to walk? YESWOREST Information not available 06/14/2022 Do you have difficulty doing errands alone? 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 No Information no t available 06/14/2022 Family History Relationship Description Onset Age of this Age Resolved Age Notes LastModified by Organization Details LastModified Time Father Myocardial infarction 65 Not available 06/14 13:51:22 Father Harmful pattern of use of alcohol 65 [email or web address] Not available 03/24 11:38:15 Sister Atrial fibrillation 67 Not available 13:51:22 Brother Atrial fibrillation 69 Not available 13:51:22 Brother Malignant tumor of colon oliverm Not available 15:43:09 Mother Atrial fibrillation Not available 13:51:22 Mother Arthritis 83 [email or web address] Not avail able 04/05/2018 11:38:46 Mother Chronic renal failure 83 Not available 2021 13:51:22 Notes:1 older sister and 1 o lder brother Medical History Condition Response Other N Gout N Kidney Stones N Blood Diseases N Hyperthyroidism N Breast Cancer N Depression N COPD N Lung Disease N Hypothyroidism N Defects or Inherited Disease [...] Problems N GI Problems N Acne N Eating Disorder N Skin Problems N Anemia N Constipation N Bladder Problems N Mental Illness N Ovarian Cancer N Diabetes N Blood Transfusions N Seizures/Epilepsy N Tuberculosis N AIDS/HIV N Congestive Heart Failure (CHF) N Eczema N Diverticulitis N Abuse/Domestic Violence N Asthma N Allergies Y Reflux/GERD N Hepatitis N Pulmonary Embolism N Hypertension N Chicken Pox N Autism Spectrum Disorder (ASD) N Osteoporosis N Gynecological History Statement/Question Response Current Control Method Hysterectom y Date of Last Colonoscopy 04/20/2021 Most Recent Mammogram 05/03/2017 Obstetrics History GPAL:G 0 P 0 0 0 0 Immunizations Vaccine Type Date Status Note Provider Nam e and Address Organization Details Recorded Time influenza, unspecified formulation 6 completed April frost [facility] 02/21/2017 14:02:35 pneumococcal, unspecified formulation 6 completed April frost [facility] 02/21/2017 14:02:55 Pneumococcal conjugate PCV 13 8 completed SU[facility] 01/28/2022 09:18:25 Influenza, high-dose, trivalent, PF 8 completed Indiana Manrique MA [facility] 07/15/2021 11:33:10 Influenza, high-dose, trivalent, PF 9 completed Katty frost [facility] 06/18/2019 14:18:04 zoster recombinant 0 completed SUZY [facility] 01/28/2022 09:18:25 Influenza, split virus, quadrivalent, preservative 0 completed SUZY [facility] 01/28/2022 09:18:25 COVID-19, mRNA, LNP-S, PF, 30 mcg/0.3 mL dose 1 completed [facility] 03/04/2021 11:34:30 COVID-19, mRNA, LNP-S, PF, 30 mcg/0.3 mL dose 1 completed SUZY [place], [facility] 03/04/2021 11:34:51 Influenza, split virus, quadrivalent, preservative 1 completed SUZY Avila, [facility] 07/15/2021 11:33:10 COVID-19, mRNA, LNP-S, PF, 30 mcg/0.3 mL dose 1 completed SUZY Vaughan, [facility] 06/07/2021 16:01:23 zoster live 2 completed SUZY Av[place], [facility] 07/15/2021 11:33:10 COVID-19, mRNA, LNP-S, PF, 100 mcg/0.5mL dose or 50 mcg/0.25mL dose 2 completed SUZY Tai, [facility] 01/28/2022 09:18:25 pneumococcal polysaccharide PPV23 5 completed SUZY Tai, [facility] 01/28/2022 09:18:26 influenza, unspecified formulation 6 completed SUZY Tai, [facility] 01/28/2022 09:18:26 Influenza, high-dose, quadrivalent, PF 2 completed SUZY [place], [facility] 12/01/2022 15:02:27 Td (adult), 2 Lf tetanus toxoid, preservative free, adsorbed 0 completed Not Available [facility] 02/04/2014 14:00:31 Tdap 3 completed Not Available [facility] 02/04/2014 14:00:31 Td (adult), 2 Lf tetanus toxoid, preservative free, adsorbed 3 completed Maggy Floyd MD [address] [facility] [address], [place], [address], [facility] 06/08/2023 08:17:29 Past Encounters Encounter ID Performer Location Encounter Start Date Encounter Closed Date Diagnosis/Indication Diagnosis SNOMED-CT Code Diagnosis ICD10 Code Diagnosis Note [id number] autoEComm erce [address] [facility],[address] [place] [address] 09/19/2006 00:00:00 [id number] autoEComm erce [address] [facility],[address] [place] [address] 07/18/2006 00:00:00 [id number] autoEComm erce [address] [facility],[address] [place] [address] 06/29/2006 00:00:00 [id number] autoEComm erce [address] [facility],[address] [place] [address] 05/05/2006 00:00:00 [id number] autoEComm erce [address] [facility],[address] [place] [address] 10/17/2006 00:00:00 [id number] autoEComm erce [address] [facility],[address] [place] [address] 11/20/2006 00:00:00 [id number] autoEComm erce [address] [facility],[address] [place] [address] 12/05/2006 00:00:00 [id number] autoEComm erce [address] [facility],[address] [place] [address] 01/08/2007 00:00:00 [id number] autoEComm erce [address] [facility],[address] [place] [address] 02/07/2007 00:00:00 [id number] autoEComm erce [address] [facility],[address] [place] [address] 02/22/2007 00:00:00 [id number] autoEComm erce [address] [facility],[address] [place] [address] 09/04/2007 00:00:00 [id number] auto[address]Comm erce [address] [place] [address] 10/19/2007 00:00:00 [id number] autoEComm erce [address] [place] [address] 11/05/2007 00:00:00 [id number] [address]Comm erce [address] [place] [address] 10/30/2008 00:00:00 [id number] auto[address]Comm erce [address] [place] [address] 09/01/2009 00:00:00 [id number] auto[address]Comm erce [address] [place] [address] 09/21/2009 00:00:00 [id number] autoEComm erce [address] [facility],[address] [place] [address] 07/27/2010 00:00:00 [id number] autoEComm erce [address] [facility] [address] [place] [address] 02/04/2011 00:00:00 [id number] autoEComm erce [address] [facility] [address] [place] [address] 05/25/2011 00:00:00 [id number] autoEComm erce [address] [facility],[address] [place] [address] 05/16/2012 00:00:00 [id number] autoEComm erce [address] [facility] [address] [place] [address] 08/01/2012 00:00:00 [id number] autoEComm erce [address] [place] [address] 11/22/2012 00:00:00 [id number] autoEComm erce [address] [facility] [address] [place] [address] 12/27/2012 00:00:00 [id number] autoEComm erce [address] [facility],[address] [place] [address] 08/06/2013 00:00:00 [id number] autoEComm erce [address] [facility], [address] [place] [address] 02/04/2014 00:00:00 [id number] Maggy Floyd MD Main Office [address] [address] [place] [address] 07/01/2014 10:16:40 07/01/2014 10:47:00 Mass of body structure 371353695 mass at lower left back which appears to be a cyst. [id number] Maggy Floyd MD Main Office [address] [address] [place] [address] 10/09/2014 10:46:17 10/09/2014 11:53:11 Adult health examination 488249860 Menopause present 571440514 Administra tion of pneumococcal vaccine 64442812 Allergic rhinitis 60631241 Hypercholesterolemia 25311714 Varicella vaccination 42594299 [id number] Maggy Floyd MD Main Office [address] [place] [address] [place] [address] 01/13/2016 15:38:45 01/13/2016 16:27:38 Generalized osteoarthritis 374267226 M15.9 Osteopenia 459801146 M85 .80 we looked into boniva because it is only once a month but it is not covered by her insurance. She will look at taking the fosomax at different times but will continue with it. She is also taking calcium and vitamin D. Gastroesop hageal reflux disease 248612902 K21.9 She is concerned about calcium absorption while taking prilosec so she will change to an OTC H2 belkis. [id number] Maggy Floyd MD Main Office [address] [address] [place] [address] 02/21/2017 12:53:36 02/21/2017 14:22:37 Adult health examination 849637136 Z00.00 Urinary incontinence 165 249287 R32 She will try an increased dose of vesicare and if her problem persists after one month she will make a urology appointmen t. Osteopenia 463537761 M85 .80 Taking fosomax and tolerating it well. She is also taking calcium and vitamin D. Gastroesop hageal reflux disease 555045399 K21.9 She was concerned about calcium absorption with a PPI but has continued it since she gets symptom relief. Insomnia 114039954 G47.0 0 Uses prn and it helps. Single austen or depressive episode 609535738 F32.9 Under control with meds. Hyperlipidemia 35936206 E78.5 Not on meds; check fasting level. Varicella vaccination 68 567360 Z23 Administra tion of pneumococcal vaccine 08895670 Z23 Screening for malignant neoplasm of breast 988611715 Z12.39 Hearing loss 07555730 H9 1.93 [id number] Maggy Floyd MD Main Office [address] [address] [place] [address] 09/27/2017 08:45:11 09/27/2017 09:49:54 Insomnia 392093771 G47.00 Uses prn and it helps. Degenerati on of lumbar intervertebral disc 29745518 M51.36 [id number] Maggy Floyd MD Main Office [address] [place] [address] 12/04/2017 10:52:56 12/04/2017 11:59:03 Lymphadenopathy 90706600 R59.9 These are chronic and seen on imaging for more than 10 years. Small, benign and no further work-up is needed. [id number] ELLIE Martinez Main Office [address] [place] [address] 01/25/2018 09:36:11 01/25/2018 10:36:45 Pre-surgery evaluation 622375503 Z01.818 According to Mcqueen stone-op risk assessment , patient has 0.36% risk of stone-op [place] or cardiac arrest. EKG unchanged from 2011, no acute abnormalit y, labs and CXR are pending. No further work-up necessary, may proceed as scheduled. Urinary incontinence 165 099729 R32 Degenerati on of lumbar intervertebral disc 80400252 M51.36 having L4-L5 decompress ion and fusion 02/[address] Ephraim Rubalcava 50012479 R53.83 [id number] Maggy Floyd MD Main Office [address] [place] [address] 02/08/2018 09:48:24 02/08/2018 10:13:39 [id number] Maggy Floyd MD Main Office [address] [address] [place] [address] 04/05/2018 10:33:16 04/05/2018 11:59:31 Adult health examination 682550376 Z00.00 Hyperlipidemia 08433083 E78.5 Not on meds; check fasting level. Spinal fernando nosis of lumbar region 23298015 M48.061 resolved with surgery Insomnia 999891852 G47.0 0 Uses prn ambien and it helps. [id number] Maggy Floyd MD Main Office [address] [address] [place] [address] 09/14/2018 08:46:31 09/14/2018 09:21:14 Plantar fasciitis 434441074 M72.2 will refer to podiatry, take meloxicam once daily as directed with food. ice, elevate, wear fasciitis sleeve, supportive shoes, do not walk barefoot, continue exercises. [id number] Maggy Floyd MD Main Office [address] [address] [place] [address] 10/03/2018 10:09:39 10/03/2018 11:03:57 Hyperlipidemia 52339631 E78.5 Not on meds; check fasting level. Urinary incontinence 165 545979 R32 She would like to go down on her vesicare dose because of constipati on which started after increasing the dose. Major depr essive disorder 388211555 F32.9 She feels that this is no longer under good control so will increase her dose of fluoxetine . Osteophyte of bone 12014 91991 71605 M77.9 Bone spur at the left heel. Followed by podiatry. Panniculitis 88896656 M7 9.3 [id number] Maggy Floyd MD Main Office [address] [address] [place] [address] 06/18/2019 14:08:42 06/18/2019 15:10:03 Adult health examination 962847806 Z00.00 UTD with immunizati ons except due for an updated shingles vaccine. Had a colonoscop y done last year. Hyperlipidemia 23290288 E78.5 Not on meds; check fasting level. Osteoporosis 96180439 M8 1.0 Major depr essive disorder 208688639 F32.1 She feels that this is no longer under good control so will add wellbutrin to her regimen. 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 Major depr essive disorder 802253465 F32.1 She feels that this is no longer under good control so will add wellbutrin to her regimen. Urinary bl adder problem 720063253 N32.9 Anxiety state 578642796 F41.1 [id number] Maggy Floyd MD Main Office 3640 [facility] [address] [place] [address] 08/13/2020 10:14:55 08/13/2020 11:20:20 Adult health examination 734412352 Z00.00 UTD with immunizati ons. Had one shingles shot and will be returning for her second one. Had a colonoscop y done in 2018 but because of a poor prep she was advised to repeat it in 1 year. She has not done so yet. Screening for malignant neoplasm of breast 396407255 Z12.39 Screening for malignant neoplasm of colon 338395864 Z12.11 Had a colonoscop y in 2018 but a repeat was recommende d because of poor prep. She will make her own appointmen t. Pain of mu ltiple joints 44334953 M25.50 Fhx of RA. Will do screening labs and refer to rheum. Hyperlipidemia 59813461 E78.5 Not on meds; check fasting level. Major depr essive disorder 945687614 F32.1 Doing well on prozac and wellbutrin . [id number] ELLIE Martinez Main Office 36[address] [facility] [address] [facility] [place] [address] 03/04/2021 11:16:20 03/04/2021 11:55:55 Insomnia 126172941 G47.00 just filled zolpidem 03/03 with 2 refills. Anxiety state 182253545 F41.1 Single austen or depressive episode 185206815 F32.1 Feeling depressed, will increase fluoxetine to 40mg for now, she has been taking 30mg. F/u with PCP in 3 months for recheck. Fatigue 53102038 R53.83 will check labs Vitamin D deficiency 347 83822 E55.9 Low back pain 050457536 M54.5 s/p surgery 3 years ago. will check XR. [id number] Savannah monreal MD Main Office 2310 [facility] [address] [place] [address] 06/07/2021 15:21:32 06/07/2021 16:32:44 Pre-surgery evaluation 078873950 Z01.818 Patient is at low risk for cardiopulm onary complicati ons with planned procedure based on comorbidit ies, good exertional tolerance and overall procedure risk. Patient advised to avoid aspirin and NSAIDS for 7 days prior. May proceed to scheduled surgery as planned. Hold meds am of procedure Mcqueen 0.2% Cramp in lower limb 4499 55629 R25.2 try tonic water at night, labs today, stretching Abnormal urine odor 8769 003 R82.90 check urine Bilateral cataracts 9572 2004 H26.9 having surgery for this with progressiv e vision changes [id number] Maggy Floyd MD Main Office [address] [place] [address] 07/15/2021 11:23:35 07/15/2021 12:21:52 Increased frequency of urination 168001522 R35.0 Urine dip looks negative and last urine was also normal but she was treated with 5 days of bactrim. Will order another send out UA with reflex culture and will not treat until results are back. If she does not have a UTI and the symptoms persist we will do a urology referral for further evaluation . [id number] Jarad Bains MD [facility] 3640 [facility] [address] [place] [address] 01/28/2022 08:30:44 01/28/2022 10:31:02 Pain of left knee joint 0181101663 48584 M25.562 [id number] Maggy Floyd MD Main Office 0[address] [facility] [address] [place] [address] 02/22/2022 09:55:47 02/22/2022 10:33:59 Pre-surgery evaluation 142310785 Z01.818 She is low-risk for surgery and cleared for her upcoming left knee surgery. Tear of me dial meniscus of knee 958007677 S83.242A Having repair of her left medial meniscus done 02/28/[address] Templeton. [id number] Maggy Floyd MD Main Office 9[address] [facility] [address] [place] [address] 04/12/2022 14:08:29 04/12/2022 14:57:50 Left lower quadrant pain 489693465 R10.32 will check labs and urine. History of nephrectomy 5534120822 9104 Z90.5 left, she has one kidney, has been taking nsaids and tylenol Piriformis syndrome 1291 74330 G57.02 Suspect piriformis syndrome causing LLQ and left SI joint pain, will check XRs, muscle relaxer and heat as needed. stretches as tolerated. Pain of sa croiliac joint 606968182 M53.3 Gastroesop hageal reflux disease 120365735 K21.9 tums not helping, GERD sx. will check labs. [id number] Maggy Floyd MD Main Office 6427 [facility] [address] [place] [address] 06/14/2022 13:51:03 06/14/2022 14:37:46 Pain of left hip joint 4998762921 39219 M25.552 [id number] Manuel Beasley MD Main Office 8840 [facility] [address] [place] [address] 12/01/2022 14:49:15 12/01/2022 15:57:04 Easy bruising 879925713 R58 not on AC or aspirin, will check labs for further evaluation advised pt to be more gentle when applying moisturizi ng lotion, avoid 'banging' into things, and to stay well hydrated [id number] Maggy Floyd MD Main Office 0200 [facility] [address] [place] [address] 06/07/2023 09:18:08 06/07/2023 10:36:41 Adult health examination 713352304 Z00.00 UTD with immunizati ons including COVID [...] get another one. Advance care planning 71 6528561 Z71.89 Discussed HCP and MOLST forms. Requires a tetanus booster 669410713 Z23 Dyspnea on exertion 6084 5006 R06.09 This is possibly due from griffin gonzalez. She has a remote smoking history but her peak flow in the office was 360 which is normal for her age, sex and height. Her EKG shows a prolonged QT. Will refer to cardiology for further evaluation . At [facility] ed risk for falls 470445205 Z91.81 She often feels unsteady on her feet. Hyperlipidemia 70045322 E78.5 Not on meds; check fasting level. [id number] Manuel Beasley MD Main Office 3640 [facility] [address] [place] [address] 12/26/2023 14:33:48 12/26/2023 15:55:56 Pain of left thigh 9284153209 21867 M79.652 Presenting for chronic pain in the [...] t, will send referral for Orthopedic s. [id number] Manuel Beasley MD [facility] 3640 [facility] [address] [place] [address] 01/08/2024 12:39:47 01/08/2024 13:44:12 Pain of left thigh 1408786968 23151 M79.652 Presenting for chronic pain in the [...] t for consult on this ongoing issue. [id number] Maggy Floyd MD Main Office [address] [address] [place] [address] 05/07/2024 08:11:45 05/07/2024 11:42:11 [id number] [facility] [address] [place] [address] 05/09/2024 15:11:05 05/14/2024 08:58:23 Intertrochanteric fracture 570393100 S72.142A Followed by Dr Donato and has a f/u 05/31/24. Currently pain is controlled with oxycodone and tylenol. Receiving PT and OT. Not yet weight bearing. Osteoporosis 82215418 M8 1.0 Restart calcium Anemia 844415343 D64.9 Received 4 units PRBC's in the hospital. Will check to ensure bleeding has stopped. [id number] Maggy Floyd MD Main Office [address] [place] [address] 10/07/2024 10:49:39 10/07/2024 12:08:34 Dyspnea 926302307 R06.00 Exertional SOB and fatigue for 3 weeks post-COVID infection. Lungs clear to auscultati on, no audible wheezing. Did not have symptoms of prior to COVID infection. We will order CBC (hx of anemia), CMP, and pro bnp. Vitamin D deficiency 347 14968 E55.9 Pt has hx of vitamin D deficiency and is not currently taking supplement s. Will check Vit D levels. Fatigue 89182734 R53.83 Increased fatigue 3 weeks post-COVID infection without significan t improvemen t. Will check TSH to r/o hypothyroi dism. Deep venou s thrombosis of lower extremity 516883866 I82.409 On Eliquis. Provoked by surgery in March. Pt. has f/u with vascular in October. Will continue Eliquis as directed until then. [id number] Maggy Floyd MD Main Office 3640 [facility] [address] [place] [address] 12/13/2024 12:44:14 12/13/2024 13:51:12 Adult health examination 633503770 Z00.00 UTD with immunizati ons including COVID but has not gotten the recent booster. Also has not yet had the flu vaccine. Had one shingles shot and will be returning for her second one. Had a colonoscop y done in 2020 and is due again in 2025. She has not had a mammogram in years and has no plans to get another one. Screening for malignant neoplasm of breast 481404863 Z12.39 She will make her own appointmen t Pure hypercholesterolemia 215120789 E78.00 Insomnia 675265580 G47.0 0 Uses prn ambien and it helps. Pain of le ft hip joint 6682871972 54761 M25.552 Severe austen or depression 270686871 F32.2 She is on meds that don't seem to be helping. Much of her depression is related to her chronic left hip and leg pain. We will treat that first and then address her depression again. [id number] Maggy Floyd MD Main Office 3640 [facility] 207 [facility] [place] [address] 01/17/2025 10:39:12 01/17/2025 11:14:55 Preoperative state 94964642 Z01.818 No medical contraindi cations to proposed procedure. Mcqueen Perioperat jose Cardiac Risk was calculated and the risk for perioperat jose [place] is <1%. May proceed to surgery as planned. Pain of le ft hip joint 5422084097 29293 M25.552 pre-operat jose medical clearance for left total hip revision on 02/18/[address] Jj Donato ( ) of [facility]. Under general anesthesia with a block Health Concerns Section Related Observation LastModified by Organization Detai ls LastModified Time None Recorded Concern Status LastModified by Organization Details LastModified Time None Recorded Advance Directives Directive Y: Payers Insurance Date Sequence Insurance Name Policy Number Policy Gallegos Covered Member ID Gallegos Member ID Guarantor Name 01/27/2025 2 [facility] Courtney Johnson Jonnathan [id number] Courtney Johnson Jonnathan 01/17/2025 1 MEDICARE B-[place]: [employer] Courtney Johnson Jonnathan [id number] Courtney Johnson Jonnathan Notes Date Note Type Note Provider Name and Address Organization Details Recorded Time 05/07/2024 text/html Hospitalization Contact RecordReported bypatient.Follow UpHospital: SNF; admit date: (Please enter in format 'MM/DD/YYYY') (04/24/2024); date of discharge: (Please enter in format 'MM/DD/YYYY') (05/03/2024); date of contact: (Please enter in format 'MM/DD/YYYY') (05/07/2024); [facility]? yesMedicare CONI with in 48 working hours? yesHigh Complexity code valid on or before:AprilModerate Complexity code valid on or before:AprilHCP on file? yesMOLST on file? noDischarge Summary available? yes 74 year old female [facility] for further medical management and re conditioning due to left hip fracture reconstruction. Patient is not weight bearing in wheel chair at this time. Patient to see ortho on 05/31/2024 will evaluate if able to bear weight at this time. During rehab stay was receiving PT, OT mcc . Patient is on strict protocol due [...] 3:20 pm with PCP. Maggy Floyd MD [address] [address], [place], [address], [facility] 05/07/2024 11:42:08 05/09/2024 text/html Hospitalization Contact RecordReported bypatient.Follow UpHospital: SNF; admit date: (Please enter in format 'MM/DD/YYYY') (04/24/2024); date of discharge: (Please enter in format 'MM/DD/YYYY') (05/03/2024); date of contact: (Please enter in format 'MM/DD/YYYY') (05/07/2024); [facility] stay? yesMedicare CONI with in 48 working hours? yesHigh Complexity code valid on or before:AprilModerate Complexity code valid on or before:AprilHCP on file? yesMOLST on file? noDischarge Summary available? yes 74 year old female [facility] for further medical management and re conditioning due to left hip fracture reconstruction. Patient is not weight bearing in wheel chair at this time. Patient to see ortho on 05/31/2024 will evaluate if able to bear weight at this time. During rehab stay was receiving PT, OT mcc . Patient is on strict protocol due [...] at this time. She was admitted to [facility] for a routine left hip replacement secondary [...] tylenol for the pain. Maggy Floyd MD [address] [address], [place], [address], [facility] 05/10/2024 09:07:39 10/07/2024 text/html 74 y/o female [...] not been taking omeprazole. Ilda Booker PA-C [address] [address], [place], [address], [facility] 10/07/2024 13:14:57 12/13/2024 text/html Medicare Annual Wellness VisitReported bypatient.Diet and Nutrition:healthy diet; discussed vitamin and supplement use; discussed maintaining calcium balance Fracture Risk:no history of fractures;previous musculoskeletal injuries(left shoulder); also with low back; seeing a chiropractor 3 times a week over the last 2 weeks. No change yet in back pain. Physical Activity:does not exercise on a regular basis Depression Risk:no loss of interest in activities; no agitation; no loss of energy (sometimes uses meds); no thoughts of suicide;history of mood disorders;history of depression Orientation:no disorientation to time; no disorientation to date; no disorientation to place Concentration and Memory:no decreased concentrating ability; no memory lapses or loss; does not forget words Speech/Motor difficulties:no speech difficulties; no difficulty expressing formulated concepts Hearing:no loss of hearing Vision:no vision problems Activities of Daily Living:able to bathe with limited or no assistance; able to contol urination and bowels; able to dress with limited or no assistance; able to feed self with limited or no assistance; able to get out of chair or bed with limited or no assistance; able to groom with limited or no assistance; able to toilet with limited or no assistance Instrumental Activities of Daily Living:able to do house work with limited or no assistance; able to grocery shop with limited or no assistance; able to manage medications with limited or no assistance; able to manage money with limited or no assistance; able to prepare meals with limited or no assistance; able to use the phone with limited or no assistance Falls Risk Assessment:no dizziness/vertigo;garo quent falls while walking(off balance when getting up from a seated position) Was having ADDISON but this has resolved. She had surgery on her left hip after a fracture in March 2024 and then a revision was done 2 days later. Both surgeries were done by Dr Donato. She has continuing pain in her left leg and difficulty doing stairs and walking. She states that Dr Donato recommends additional surgery but she would like a second opinion before proceeding. Maggy Floyd MD [address] [address], [place], [address], [facility] 12/14/2024 08:53:06 01/17/2025 text/html Courtney is a 74yr old F who presents for pre-operative medical clearance for left total hip revision on 02/18/[address] Jj Donato ( ) of [facility]. Under general anesthesia with a block. Denies any acute complaints at this time. known allergy to sporanox, and has tolerated anesthesia in the past without complications. The patient does not follow w/ Cardiology and notes that he can walk multiple blocks and has no limitations with going up multiple flights of stairs before becoming symptomatic METS score ~ > 4. The patient currently denies chest pain, shortness of breath, palpitations, fever, chills, and nausea/vomiting. MAKEDA KULKARNI [address], [place], [address], [facility] 01/17/2025 11:26:39 OBGyn Episode No OBEpisode recorded.
== END 2025-02-04 10:07 | disposition home or self-care (01) ==
LOC: HO.US 10:06
PROVIDERS: Visit Provider Physician Assistant
DX: R22.42 Localized swelling, mass and lump, left lower limb (principal)
CPT/HCPCS: 93971

== ENCOUNTER → 2025-02-04 10:08 | Outpatient (BNV) | payer MEDICARE, SELFPAY | PROVIDERS: Visit Provider Radiology Diagnostic Radiology | DX: I82.432 Acute embolism and thrombosis of left popliteal vein (principal) | CPT/HCPCS: 93971 ==

== ENCOUNTER 2025-02-20 13:23 | Outpatient (AMB) | payer MEDICARE, SELFPAY ==
--- NOTE | 2025-02-20 13:24 | A.OFFVIS_ITS ---
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 Was scheduled for Left hip revision on 02/18/25. 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 She had left hip arthroplasty on 04/17/2024 and revision with ORIF of the greater trochanter on 04/19/2024. Postprocedure she had significant blood loss. She had a DVT which was being managed by Eliquis at that time. At the current time she is not being anticoagulated. She is a nonsmoker nondiabetic. She is undergoing reintervention by Orthopedic surgery. She actually had a 2nd opinion outside and agreed that this may be the best option for her. The concern here is the prior history of DVT and the inability to anticoagulate in the perioperative period. She now presents to us for vascular evaluation. [facility] Medical History COVID-19 Hx of transfusion of packed red blood cells Anemia DVT (deep venous thrombosis) Hx of malignant neoplasm of kidney Fracture neck of femur Suicide attempt Elevated blood pressure reading in office without diagnosis of hypertension Solitary lung nodule Fatigue Scoliosis of lumbar spine Osteopenia Osteoporosis Panniculitis Pes anserinus bursitis Lumbosacral radiculitis Lumbar spondylosis Degeneration of lumbar intervertebral disc Spinal stenosis of lumbar region Piriformis syndrome Allergic rhinitis Carpal tunnel syndrome Migraine Insomnia Hyperlipidemia Vitamin D deficiency Arthritis of left hip Depression Anxiety Arthritis Fatty liver Osteoarthritis Back pain GERD (gastroesophageal reflux disease) History of blood transfusion (~2000) History of kidney cancer Surgical History History of esophagogastroduodenoscopy (EGD) History of revision of total hip arthroplasty Hx of unilateral oophorectomy History of total left hip arthroplasty History of nephrectomy, left (~2005) History of pubovaginal sling Hx of colonoscopy Hx of tubal ligation Hx of ovarian cystectomy History of back surgery Hx of right knee surgery History of left knee surgery History of hysterectomy H/O bilateral breast biopsy Hx of appendectomy (~1967) Social History Household Members: Significant Other Housing: House Are you a primary patient care specialist to a significant other at home: Yes Do you presently have visiting nurse or other home services: No 75 years or older and lives alone: No Alcohol intake: never Comment: aware of trip hazard Patient Tobacco Use Status: Former Tobacco user Tobacco use type: Cigarette service: No Review of Systems Const All systems reviewed & are unremarkable except as noted in HPI and below Reports no additional complaints ENT Reports Normal hearing present Card Denies chest pain, Denies chest pain at rest, Denies chest pain with activity and Denies pedal edema Resp Denies cough GI Denies abdominal pain Musc Denies abnormal gait, Denies muscle cramps and Denies radiating pain into limb Skin/Breast Denies skin ulcer and Denies wounds Neuro Reports Normal hearing present and Denies abnormal gait Psych Reports no additional complaints Physical Exam Vital Signs: BMI result Body Mass Index 26.6 Const General: cooperative, healthy appearing and comfortable Orientation/consciousness: oriented to person, oriented to place and oriented to time HEENT Head: Yes normal to inspection Neck Neck: Yes normal visual inspection Carotids: no bruits Chest Chest palpation & inspection: normal inspection of the chest Resp Effort & Inspection: normal respiratory effort and able to speak in complete sentences Auscultation: clear to auscultation bilaterally, no crackles, no rales, no rhonchi and no wheezes Cardio Rate: regular rate Rhythm: regular rhythm Heart sounds: S1 normal heart sound present and S2 normal heart sound present Bruits: no carotid bruits Peripheral pulses: Peripheral pulses 2+ throughout GI Inspection: Yes normal to inspection Skin Wounds: no wounds Hair: normal Neuro General: oriented to person, oriented to place and oriented to time Cranial nerves: Yes CN's II-XII intact bilaterally and Yes Normal hearing present Cognition (Neuro): normal cognition Motor exam (neuro): 5/5 motor strength present throughout Extrem Other: venous exam: +2 edema General: No clubbing, No cyanosis and Yes edema Psych Appearance: grossly normal Mental Status: mental status grossly normal Speech and movement: Normal speech and movement present Assessment & Plan Assessment & Plan (1) DVT (deep venous thrombosis): Comment: July 2024 after last hip replacement in Mar 2024. Treated with Eliquis and now off of anticoagulant since January 20 2025. Code(s): I82.409 - Acute embolism and thrombosis of unspecified deep veins of unspecified lower extremity Category: Medical Qualifiers: DVT location: lower extremity Affected thrombotic vein of extremity: femoral Chronicity: chronic Laterality: left Qualified Code(s): I82.512 - Chronic embolism and thrombosis of left femoral vein Plan: In short patient has chronic left lower extremity DVT. This was confirmed on ultrasound dated 02/04/2025. The concern here is that she is undergoing orthopedic reintervention. She will be off anticoagulation in the perioperative period. Patient will require placement of inferior vena cava filter. Risks benefits complications were discussed in detail with the patient This includes but is not limited to bleeding, infection, heart attack, need for emergent surgical repair, limb ischemia, blood vessel damage, bleeding, puncture, kidney injury, bruising, allergic reaction, and skin reaction. The patient demonstrates a clear understanding. We will schedule for the next appropriate time. Thank you for allowing us to assist in this patient's care. Coding Level of Care Code New Pt Level 4 (64734) Diagnoses Chronic deep vein thrombosis (DVT) of femoral vein of left lower extremity I82.512 DVT location: lower extremity Affected thrombotic vein of extremity: femoral Chronicity: chronic Laterality: left
[2025-02-20 13:28] VITALS: BMI 26.6
--- OUTSIDE RECORDS SUMMARY | 2025-02-20 13:37 | XMS_ITS | Clinical Summary ---
Author Organization [facility] ity Address [address] [place] [address] Care Team Providers Care Relationship Mgr Name Role Phone Unavailable Primary Care Provider [...] series) 2024 Colorectal Cancer Screening: Colonoscopy 05/17/2024 Falls Risk Assessment 05/17/2024 Hepatitis C Screening 05/17/2024 Osteoporosis Screening (Bone Density Screening) 05/17/2024 Social Influencers of Health Screening 05/17/2024 Depression Screening 07/24/2024 Influenza Vaccine (#1) 2025 HIB Vaccines Aged Out No longer [...] Documents on File Type Date Recorded Patient Internet Database Specialist Expl anation Health Care Decision (hx) 05/13/2024 AD SAMM DIRECTIVE
--- OUTSIDE RECORDS SUMMARY | 2025-02-20 13:37 | XMS_ITS | Clinical Summary ---
Author Organization [facility] Address [address] [place] [address] Care Team Providers Care Clip Baker Name Role Phone Billy Floyd MD Primary Care Provider [phone] Allergies Active Allergy Reactions Criticality Noted Date [...] this topic Medical Devices Implanted Type Area Nurse Administrator Device Identifier Shelf Expiration Date Model / Serial / Lot 7-13 Rise 8mm Cage Implanted:Qt y: 1 on 02/06/2018 by Shemar Small MD at [facility] Cage N/A: Spine Lumbar [employer] [id number] / / 35mm Deangelo Implanted:Qt y: 1 on 02/06/2018 by Shemar Small MD at [facility] Nail/Deangelo N/A: Spine Lumbar [employer] MINIMALLY INVASIVE T [id number] / / 40mm Deangelo Implanted:Qt y: 1 on 02/06/2018 by Shemar Small MD at [facility] Nail/Deangelo N/A: Spine Lumbar [employer] MINIMALLY INVASIVE T [id number] / / 6.5 X 55mm Voyager Screw Implanted:Qt y: 1 on 02/06/2018 by Shemar Small MD at [facility] Screw N/A: Spine Lumbar [employer] MINIMALLY INVASIVE T [id number] / / 6.5 X 50mm Voyager Screw Implanted:Qt y: 1 on 02/06/2018 by Shemar Small MD at [facility] Screw N/A: Spine Lumbar [employer] MINIMALLY INVASIVE T [id number] / / 6.5 X 45mm Voyager Screw Implanted:Qt y: 2 on 02/06/2018 by Shemar Small MD at [facility] Screw N/A: Spine Lumbar [employer] MINIMALLY INVASIVE T [id number] / / Fibrinet Implanted:Qt y: 1 on 02/06/2018 by Shemar Small MD at [facility] Tissue N/A: Spine Lumbar Other 03/20/2018 [id number] / / [id number] Insurance MEDICARE PART A & B [facility] Advance Directives * Full Code (Latest Code Status on File) Date Activated Date Inactivated Comments 02/06/2018 3:26 PM Care Teams Clip Baker Relationship Specialty Start Date End Date Billy Floyd MD [address] [facility] [address] [place] [address] PCP - General Internal Medicine 01/30/18
== END 2025-02-20 14:01 | disposition home or self-care (01) ==
LOC: HO.HVS 13:23
PROVIDERS: Visit Provider Surgery Vascular Surgery
DX: I82.512 Chronic embolism and thrombosis of left femoral vein (principal)
CPT/HCPCS: 99204

== ENCOUNTER → 2025-02-20 13:23 | Outpatient (BNVA) | payer MEDICARE, SELFPAY | PROVIDERS: Visit Provider Surgery Vascular Surgery | DX: I82.512 Chronic embolism and thrombosis of left femoral vein (principal) | CPT/HCPCS: 99202 ==

== ENCOUNTER 2025-03-03 09:28 | Day surgery (SDC) | payer MEDICARE, SELFPAY ==
--- OUTSIDE RECORDS SUMMARY | 2025-02-21 11:46 | XMS_ITS | Clinical Summary ---
Author Organization [facility] Address [address] [place] [address] Care Team Providers Care Construction Site Manager Name Role Phone Billy Floyd MD Primary Care Provider [phone] Allergies Active Allergy Reactions Criticality Noted Date [...] this topic Medical Devices Implanted Type Area Drug Safety Assistant Device Identifier Shelf Expiration Date Model / Serial / Lot 7-13 Rise 8mm Cage Implanted:Qt y: 1 on 02/06/2018 by Shemar Small MD at [facility] Cage N/A: Spine Lumbar [employer] 193.001 / / 35mm Deangelo Implanted:Qt y: 1 on 02/06/2018 by Shemar Small MD at [facility] Nail/Deangelo N/A: Spine Lumbar [employer] MINIMALLY INVASIVE T [id number] / / 40mm Deangelo Implanted:Qt y: 1 on 02/06/2018 by Shemar Small MD at [facility] Nail/Deangelo N/A: Spine Lumbar [employer] MINIMALLY INVASIVE T [id number] / / 6.5 X 55mm Voyager Screw Implanted:Qt y: 1 on 02/06/2018 by Shemar Small MD at [facility] Screw N/A: Spine Lumbar [employer] MINIMALLY INVASIVE T [id number] / / 6.5 X 50mm Voyager Screw Implanted:Qt y: 1 on 02/06/2018 by Shemar Small MD at [facility] Screw N/A: Spine Lumbar [employer] MINIMALLY INVASIVE T [id number] / / 6.5 X 45mm Voyager Screw Implanted:Qt y: 2 on 02/06/2018 by Shemar Small MD at [facility] Screw N/A: Spine Lumbar [employer] MINIMALLY INVASIVE T [id number] / / Fibrinet Implanted:Qt y: 1 on 02/06/2018 by Shemar Small MD at [facility] Tissue N/A: Spine Lumbar Other 03/20/2018 [id number] / / [id number] Insurance MEDICARE PART A & B [facility] Advance Directives * Full Code (Latest Code Status on File) Date Activated Date Inactivated Comments 02/06/2018 3:26 PM Care Teams Construction Site Manager Relationship Specialty Start Date End Date Billy Floyd MD [address] [facility] [place] [place] [address] [place] [address] PCP - General Internal Medicine 01/30/18
--- OUTSIDE RECORDS SUMMARY | 2025-02-21 11:46 | XMS_ITS | Clinical Summary ---
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
[2025-03-03] VITALS (12 sets, daily range): BP systolic 114–141; BP diastolic 60–77; PULSE 70–90; RESP 10–19; TEMP 36.7–36.9; O2SAT 94–100; BMI 26.1
[2025-03-03 10:18] LABS: MANUAL DIFF FLAG NO
[2025-03-03 10:23] LABS: Hematocrit 40.4 % (37.0-47.0); Hemoglobin 13.5 g/dl (12.0-16.0); Imm Gran Abs Auto 0.04 X10*3/uL (0.00-0.03); Imm Gran Pct Auto 0.7 % (0.0-0.4); Lymphocytes Absolute Auto 1.5 X10*3/uL (1.2-4.9); Mean Corpuscular HGB Conc 33.4 g/dl (31.0-35.0); Mean Corpuscular Hemoglobin 30.8 pg (27.0-33.0); Mean Corpuscular Volume 92.0 fL (80.0-98.0); NRBC Abs Auto 0.000 X10*3/uL (0.0-0.012); NRBC Pct Auto 0.0 /100WBC (0.0-0.2); Platelet Count 250 X10*3/uL (160-400); Red Blood Count 4.39 X10*6/uL (4.20-5.50); White Blood Count 5.8 X10*3/uL (4.8-10.8)
[2025-03-03 10:36] LABS: Blood Urea Nitrogen 15 mg/dL (9-16); Creatinine Clr Calc Pharmacy 53.6; Estimated Glomerular Filt Rate 59
--- NOTE | 2025-03-03 11:44 | W.PM.OPN ---
Operative Note Operative Note Date of Service: 03/03/25 Narrative: Angiogram report from [facility] Preoperative diagnosis: Deep venous thrombosis Postoperative diagnosis: Same Procedure: 1. Ultrasound-guided right common femoral vein access 2. Inferior vena cavogram 3. Placement of inferior vena cava filter Surgeon:Xiang Medrano M.D., FACS, RPVI Shotgun Shell Assembly Machine Operator:None Anesthesia: Local only Specimens:none Drains:none Estimated blood loss: Less than 10 ml Radiation dose: 58.3 mGy Implant: Bard Bartow retrievable vena cava filter Indications: 74-year-old female with prior history of DVT scheduled for orthopedic reintervention. Due to the concern of DVT around the perioperative and inability to anticoagulate she now presents for vena cava filter placement The patient has signed the informed consent after reviewing risks, complications, benefits, and alternatives previously discussed with the patient. The patient was given the opportunity to ask any additional questions or voice any concerns. All questions were answered to the patient's satisfaction. Procedure in detail: Patient was brought to the angiography suite prior to which a time-out was called for patient identification and site verification. Bilateral groins were prepped and draped in the standard surgical fashion. Under ultrasound guidance right common femoral vein was punctured with micro puncture needle and wire. Subsequently a precision 5 Ghanaian sheath was then placed. Sabre Energyson wire was advanced to the level of the vena cava. Vena cavogram was then undertaken through the 5 Ghanaian sheath. This was a baseline study to define the variant anatomy, caval size, location and number of renal veins, and to evaluate for ileo caval thrombus. Under direct fluoroscopic guidance we exchanged out the 5 Ghanaian sheath for the Bard Bartow sheath. We brought the filter into position. This was then subsequently deployed. The inner cannula was then removed. Through the sheath a hand injection was performed to assess filter position. Once this was accomplished the sheath was then removed, and hemostasis was achieved with 10 minutes of direct compression. No immediate complications occurred and the patient was returned to the recovery suite with no complications Interpretation of films: 1. Ultrasound demonstrates appropriate femoral vein puncture. Image of which was saved. 2. There was no ileal caval thrombus noted 3. There are single renal veins bilaterally and the IVC is normal in caliber. There is no aberrant anatomy. 4. The filter was deployed appropriately and position below the lowest renal vein. Conclusion: 1. Successful placement of Bard Bethany IVC filter 2. Anticoagulation status: Resume regular anticoagulation as indicated 4 hours post filter placement This note is constructed using voice recognition software. While every effort has been made to ensure accuracy, cyber workforce developer and manager errors may have been included. Thank you for allowing me to participate in the care of your patient. Yours sincerely, Xiang Medrano MD, FACS, R.P.V.I.
== END 2025-03-03 14:28 | disposition home or self-care (01) ==
PROVIDERS: Visit Provider Surgery Vascular Surgery
DX: I82.512 Chronic embolism and thrombosis of left femoral vein (principal); Z96.642 Presence of left artificial hip joint; Z87.81 Personal history of (healed) traumatic fracture; Z92.89 Personal history of other medical treatment; D64.9 Anemia, unspecified; R03.0 Elevated blood-pressure reading, without diagnosis of hypertension; G57.00 Lesion of sciatic nerve, unspecified lower limb; M51.16 Intervertebral disc disorders with radiculopathy, lumbar region; M81.0 Age-related osteoporosis without current pathological fracture; Z85.528 Personal history of other malignant neoplasm of kidney; Z90.5 Acquired absence of kidney; E78.5 Hyperlipidemia, unspecified; E55.9 Vitamin D deficiency, unspecified; Z79.899 Other long term (current) drug therapy; Z91.51 Personal history of suicidal behavior; Z88.8 Allergy status to other drugs, medicaments and biological substances; Z87.891 Personal history of nicotine dependence; Z98.890 Other specified postprocedural states
CPT/HCPCS: 36415; 37191; 82565; 84520; 85025; C1769; C1880; J1644; J2250; J3010; Q9967

== ENCOUNTER → 2025-03-03 09:28 | Outpatient (BNV) | payer MEDICARE, SELFPAY | PROVIDERS: Visit Provider Surgery Vascular Surgery | DX: I82.512 Chronic embolism and thrombosis of left femoral vein (principal) | CPT/HCPCS: 37191 ==

== ENCOUNTER 2025-03-27 09:48 | Outpatient (AMB) | payer MEDICARE, SELFPAY ==
--- NOTE | 2025-03-27 10:05 | MHC.OFFVIS ---
Intake Visit Reasons: Pre-Op LT SAM Rev. w/NE 04/01/25 Intake Note: Courtney is a 74 year old female who presents today for a post operative visit to discuss left SAM revision, DOI 04/01/25. Pain management agreement reviewed and signed. Allergies itraconazole (From Sporanox) Allergy (Severe, Verified 03/27/25 10:31) Facial Swelling, throat swelling HPI Comments Details: Ms De Santiago presents to the office today for Orthopedic Pre op clearance. She is scheduled for Left SAM revision; primarily the trochanteric claw plate on 04/01/[address] Donato. She underwent an uncomplicated Left hip replacement March of 2024. She sustained a postoperative periprosthetic fracture and a long stem distally fixated implant was placed with a greater trochanteric claw plate on 04/19/24. We advanced her ambulation slowly and she was slowly improving until the last few months her pain has been worsening. Her primary complaint is poor gait mechanics rather than pain however. She uses walker to ambulate and can not walk normal After her surgery, she developed a DVT in her LLE which required anticoagulant therapy. Most revenet U/S dated 02/04/25, DVT still present. Currently, she has dc the [place] and had an IVC filter placed on 03/03/[address] Medrano. The patient lives with her partner in a two level home with 4 steps to enter. [facility] Medical History (Updated 02/21/25 @ 10:58 by Xiang Medrano MD) COVID-19 Hx of transfusion of packed red blood cells Anemia DVT (deep venous thrombosis) Hx of malignant neoplasm of kidney Fracture neck of femur Suicide attempt Elevated blood pressure reading in office without diagnosis of hypertension Solitary lung nodule Fatigue Scoliosis of lumbar spine Osteopenia Osteoporosis Panniculitis Pes anserinus bursitis Lumbosacral radiculitis Lumbar spondylosis Degeneration of lumbar intervertebral disc Spinal stenosis of lumbar region Piriformis syndrome Allergic rhinitis Carpal tunnel syndrome Migraine Insomnia Hyperlipidemia Vitamin D deficiency Arthritis of left hip Depression Anxiety Arthritis Fatty liver Osteoarthritis Back pain GERD (gastroesophageal reflux disease) History of blood transfusion (~2000) History of kidney cancer Surgical History (Updated 03/18/25 @ 07:58 by Siobhan Araujo RN) Hx of surgical procedure History of esophagogastroduodenoscopy (EGD) History of revision of total hip arthroplasty Hx of unilateral oophorectomy History of total left hip arthroplasty History of nephrectomy, left (~2005) History of pubovaginal sling Hx of colonoscopy Hx of tubal ligation Hx of ovarian cystectomy History of back surgery Hx of right knee surgery History of left knee surgery History of hysterectomy H/O bilateral breast biopsy Hx of appendectomy (~1966) Social History Household Members: Significant Other Housing: House Are you a primary post acute care nurse to a significant other at home: No Do you presently have visiting nurse or other home services: No Alcohol intake: never Patient Tobacco Use Status: Former Tobacco user Tobacco use type: Cigarette Use of substances other than those prescribed or required for medical reasons: No Have you been hit, kicked, punched, or otherwise hurt by someone within the past year? If so, by whom?: No Are you DNR?: No Advance Directives: No Advance Directives Information Provided: No Advance Directives on File: No Patient : No : No Poor oral hygiene: Yes service: No Review of Systems Const All systems reviewed & are unremarkable except as noted in HPI and below Physical Exam Const General: cooperative, healthy appearing, comfortable and no acute distress Orientation/consciousness: patient oriented x3 HEENT Head: Yes normal to inspection and Yes atraumatic Ears: hearing grossly normal bilaterally Eyes General: appearance normal, both eyes and all related structures Neck Neck: Yes normal visual inspection and Yes no lymphadenopathy Resp Effort & Inspection: normal respiratory effort and able to speak in complete sentences Cardio Peripheral pulses: Peripheral pulses 2+ throughout Neuro General: patient oriented x3 Extrem Other: Left hip incision well healed, no open wounds or abraisons. Severe Trendelenburg gait. Minimal pain with hip range of motion. No venous stasis. NVI . Psych Appearance: well kempt Results Reviewed Results Reviewed: xray of the left hip obtained today for pre op planning. Assessment & Plan Assessment & Plan (1) Periprosthetic fracture around internal prosthetic left hip joint: Code(s): M97.02XA - Periprosthetic fracture around internal prosthetic left hip joint, initial encounter Category: Medical Plan: Dr Donato was available to meet with Jonnathan today. We discussed the extent of her prior hip surgery and the current status of the implant and the claw plate. We discussed the surgical procedure in detail today; which includes removal of the claw plate and to check the stability of the hip prosthesis. The patient did express understanding our goal is to remove the plate only to see if this helps improve her gait mechanics and pain. If the hip prosthesis is not stable, that would likely require another surgery. The patient did express trying to avoid another surgery of that nature if at all possible. We did review pre op preparation with labs and reviewing patients medication regimen prior to surgery. She was sent to the lab for her MRSA nasal swab along with T&S. I discussed at length the post op course which includes physical therapy services in the hospital along with the discharge routine and the patients plan upon discharge. Patient would like to be DC home with VNA. I explained to the patient, once they are DC home, they will receive VNA services which will include PT 2-3x per week. We also discussed their choice for outpatient PT once they are discharged from home PT. She would like to attend [facility] in [place] as it is closer to her home. Post op DVT ppx was also discussed and the considering the patient has a h/o DVT and has an IVC filter in place, she will need to be covered with an anticoagulant therapy, such as Lovenox or Eliquis. I reviewed with the patient their post op pain medication regimen along with the detailed wean program. The patient did express understanding of this and agreed to the narcotic policy. Lastly, I discussed with the patient the risks to the procedure. Risks including but not limited to infection, injury to surrounding nerves, tissue , bone, small and large vessels, stiffness, aseptic loosening, fracture, dislocation, amputation, DVT/PE along with intraoperative complications including but not limited to . The patient does express understanding, all questions were answered and the patient would like to proceed? with Revision Left total hip arthroplasty including Removal of hardware with Dr. Donato. Consents were signed and dated while in the office today.? Post-Operative Recovery Notes: DVT ppx :Lovenox vs Eiquis ( DVT+ and has IVC Fikter) Hospital DC plan: Home with VNA Physical Therapy: [facility]-rx faxed over Walker obtained Orders: Orders Hemoglobin A1c 03/27/25 E11.9 - Type 2 diabetes mellitus without complications PT Evaluation and Treatment 03/27/25 M97.02XA - Periprosthetic fracture around internal prosthetic left hip joint, initial encounter XR hip LT min 2V 03/27/25 M25.552 - Pain in left hip Type and Screen 03/27/25 Z01.818 - Encounter for other preprocedural examination Coding Level of Care Code Est Pt Level 4 (09270) Complex EM visit Add On G2211 Diagnoses Periprosthetic fracture around internal prosthetic left hip joint M97.02XA
--- OUTSIDE RECORDS SUMMARY | 2025-03-27 10:45 | XMS_ITS | Clinical Summary ---
Author Organization [facility] Address [address] [place] [address] Care Team Providers Care Land Agent Name Role Phone Billy Floyd MD Primary Care Provider [phone] Allergies Active Allergy Reactions Criticality Noted Date [...] Health Maintenance Due Date Last Done Comments Advance Care Planning 1950 Hepatitis C Virus Screening 1950 DTaP/Tdap/Td Vaccines [...] this topic Medical Devices Implanted Type Area Guidance Services Coordinator Device Identifier Shelf Expiration Date Model / Serial / Lot 7-13 Rise 8mm Cage Implanted:Qt y: 1 on 02/06/2018 by Shemar Small MD at [facility] Cage N/A: Spine Lumbar [employer] [id number] / / 35mm Deangelo Implanted:Qt y: 1 on 02/06/2018 by Shemar Small MD at [facility] Nail/Deangelo N/A: Spine Lumbar [employer] MINIMALLY INVASIVE T [id number] / / 40mm Deangelo Implanted:Qt y: 1 on 02/06/2018 by Shemar Small MD at [facility] Nail/Deangelo N/A: Spine Lumbar [employer] MINIMALLY INVASIVE T [id number] / / 6.5 X 55mm Voyager Screw Implanted:Qt y: 1 on 02/06/2018 by Shemar Small MD at [facility] Screw N/A: Spine Lumbar [employer] MINIMALLY INVASIVE T [id number] / / 6.5 X 50mm Voyager Screw Implanted:Qt y: 1 on 02/06/2018 by Shemar Small MD at [facility] Screw N/A: Spine Lumbar [employer] MINIMALLY INVASIVE T [id number] / / 6.5 X 45mm Voyager Screw Implanted:Qt y: 2 on 02/06/2018 by Shemar Small MD at [facility] Screw N/A: Spine Lumbar [employer] MINIMALLY INVASIVE T [id number] / / Fibrinet Implanted:Qt y: 1 on 02/06/2018 by Shemar Small MD at [facility] Tissue N/A: Spine Lumbar Other 03/20/2018 [id number] / / [id number] Insurance MEDICARE PART A & B [facility] Advance Directives * Full Code (Latest Code Status on File) Date Activated Date Inactivated Comments 02/06/2018 3:26 PM Care Teams Land Agent Relationship Specialty Start Date End Date Billy Floyd MD [address] [address] PCP - General Internal Medicine 01/30/18
--- OUTSIDE RECORDS SUMMARY | 2025-03-27 10:45 | XMS_ITS | Clinical Summary ---
Author Organization [facility] ity Address [address] [place] [address] Care Team Providers Care Ict Trainer Name Role Phone Unavailable Primary Care Provider [...] Documents on File Type Date Recorded Patient Body Man Expl anation Health Care Decision (hx) 05/13/2024 AD SAMM DIRECTIVE
== END 2025-03-27 10:45 | disposition home or self-care (01) ==
LOC: HO.HOS 09:49
PROVIDERS: Visit Provider Physician Assistant
DX: M97.02XA Periprosthetic fracture around internal prosthetic left hip joint, initial encounter (principal)
CPT/HCPCS: 99214; G2211

== ENCOUNTER → 2025-03-27 09:50 | Outpatient (BNV) | payer MEDICARE, SELFPAY | PROVIDERS: Visit Provider Radiology Diagnostic Radiology | DX: T84.021A Dislocation of internal left hip prosthesis, initial encounter (principal) | CPT/HCPCS: 73502 ==

== ENCOUNTER 2025-03-27 13:02 | Outpatient (REF) | payer MEDICARE, SELFPAY ==
--- OUTSIDE RECORDS SUMMARY | 2025-01-30 07:34 | XMS_ITS | Continuity of Care Document ---
Author Organization [facility] Address [address] [place] [address] Phone Care Team Providers Care Periodontal Assistant Name Role Phone Van KAY, RVT, RPVI, [...] Providers Copied on Encounter [facility], [address] [place] [address] [address], [id number], [phone] CVR - [place] No Information 5 Van KAY RVT, RUKHSANA Hernandez. [address] [place] [address], [place], [id number] , [place]. tel:[phone] [facility], [address] [place] [address] 1000[address], [place], [id number], tel:[phone] CVR - [place] No Information 5 Van KAY RVT, RUKHSANA Hernandez. [address] [place] [address], [place], [place], [id number] , [place]. tel:[phone] Referring Provider: Billy Turcios, [address] [place] [address], [address]. tel:[phone] [facility], [address] [place] [address] 1000[address], [place], [id number], tel:[phone] CVR - [place] Pain in left leg 5 Van KAY RVT, RUKHSANA Hernandez. [address] [place] [address], [place], [place], [id number] , [place]. tel:[phone] Referring Provider: Billy Turcios, [address] [place] [address], [place], [address]. tel:[phone] [facility], [address] [place] [address] 1000[address] 1000[place], [id number], [place] tel:[phone] CVR - [place] No Information 5 Van KAY RVT, RUKHSANA Hernandez. [address] [place] [address], [place], [place], [id number] , [place]. [phone] Referring Provider: Billy Turcios, [address] [place] [address], [place], [address]. tel:[phone] [facility], [address] [place] [address] [facility] 1000[facility], [place], [id number], [place] tel:[phone] CVR - [place] - [place] Chronic embolism and thrombosis of left femoral veinPain in left leg 5 Van KAY RVT, RUKHSANA Hernandez. [address] [place] [address], [place], [place], [id number] , [place]. [phone] Referring Provider: Billy Floyd MD J, [address] [place] [address] [address], [place], [address]. tel:[phone] Office/Oupt E&M New Pt 30 Mins- CT & [place] [facility], [address] [place] [address] [facility] 1000[facility] 1000[place], [id number], [place] tel:[phone] CVR - [place] - [place] Chronic venous hypertension (idiopathic) without complications of left lower extremityPostt hrombotic syndrome with other complications of left lower extremityLymph edema, not elsewhere classifiedHere ditary lymphedema 5 Van KAY RVT, RUKHSANA Hernandez. [address] [place] [address], [place], [place], [id number] , [place]. tel:[phone] [facility], [address] [place] [address] [facility] 1000[facility] 1000[place], [id number], [place] [phone] CVR - [facility] Pain in left leg 5 Van KAY RVT, RPVI Robert. [address] [place] [address], [place], [place], [id number] , [place]. tel:[phone] Referring Provider: David Araujo MD, RVT, RPVI, [address] [place] [address], [place], [address]. tel:[phone] Family History Family Member Type Diagnosis Age At Onset No Information Payers Payer name Insurance type Covered alliance party ID Authoriza tion(s) Medicare SUZY JOY [id number] [facility] AARP Supplement CI [id number] Social History Type Description Quantity Date [...] Information Instructions Date Instruction Additional Infor mation Patient education booklet given Related to Chronic [...]
--- NOTE | ~2025-03-27 | XR_ITS ---
EXAMINATION: XR HIP, LEFT CLINICAL INFORMATION: M25.552 - Pain in left hip COMPARISON: November 29, 2024 CT TECHNIQUE: AP upright, AP supine, and frog-leg lateral views of the left hip. FINDINGS: Again noted are changes from revision of a total hip arthroplasty on the left. There is cerclage wire placed just inferior to the lesser trochanter into a persistent fracture line. There is a cable plate device over the greater trochanter. The most cephalad compatible is detached on 1 and, new since the prior. The second most caudal cerclage wire that extends into the fracture line appears broken anteriorly, unchanged. There is heterotopic ossification located at the medial cephalad tip of the greater trochanter plate. Hardware positioning is stable. There is no abnormal lucency at bone metal interfaces. The right hip joint demonstrates small marginal osteophytes involving the acetabular roof, femoral head, and fovea. There are enthesophytes involving greater trochanter.. XR/XR hip LT min 2V IMPRESSION: Complex revision left total hip arthroplasty with greater trochanteric cable plate. The most cephalad cerclage wire has broken since the prior CT. Stable broken cerclage wire anteriorly in the region of the lesser trochanteric fracture. Wire extends into the fracture line which demonstrates nonunion or partial nonunion. Mild degenerative changes are present in the right hip. Electronically signed by: Vlad Sánchez MD 03/27/2025 10:17 AM EDT
--- OUTSIDE RECORDS SUMMARY | 2025-03-28 13:13 | XMS_ITS | Clinical Summary ---
Author Organization [facility] Address [address] [place] [address] Care Team Providers Care Account Development Executive Name Role Phone Billy Floyd MD Primary Care Provider [phone] [phone] Allergies Active Allergy Reactions Criticality Noted Date [...] this topic Medical Devices Implanted Type Area Bee Breeder Device Identifier Shelf Expiration Date Model / Serial / Lot 7-13 Rise 8mm Cage Implanted:Qt y: 1 on 02/06/2018 by Shemar Small MD at [facility] Cage N/A: Spine Lumbar [employer] [id number] / / 35mm Deangelo Implanted:Qt y: 1 on 02/06/2018 by Shemar Small MD at [facility] Nail/Deangelo N/A: Spine Lumbar [employer] MINIMALLY INVASIVE T [id number] / / 40mm Deangelo Implanted:Qt y: 1 on 02/06/2018 by Shemar Small MD at [facility] Nail/Deangelo N/A: Spine Lumbar [employer] MINIMALLY INVASIVE T [id number] / / 6.5 X 55mm Voyager Screw Implanted:Qt y: 1 on 02/06/2018 by Shemar Small MD at [facility] Screw N/A: Spine Lumbar [employer] MINIMALLY INVASIVE T [id number] / / 6.5 X 50mm Voyager Screw Implanted:Qt y: 1 on 02/06/2018 by Shemar Small MD at [facility] Screw N/A: Spine Lumbar [employer] MINIMALLY INVASIVE T [id number] / / 6.5 X 45mm Voyager Screw Implanted:Qt y: 2 on 02/06/2018 by Shemar Small MD at [facility] Screw N/A: Spine Lumbar [employer] MINIMALLY INVASIVE T [id number] / / Fibrinet Implanted:Qt y: 1 on 02/06/2018 by Shemar Small MD at [facility] Tissue N/A: Spine Lumbar Other 03/20/2018 [id number] / / [id number] Insurance MEDICARE PART A & B [facility] Advance Directives * Full Code (Latest Code Status on File) Date Activated Date Inactivated Comments 02/06/2018 3:26 PM Care Teams Account Development Executive Relationship Specialty Start Date End Date Billy Floyd MD [address] [address] PCP - General Internal Medicine 01/30/18
--- OUTSIDE RECORDS SUMMARY | 2025-03-28 13:13 | XMS_ITS | Clinical Summary ---
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
== END 2025-03-27 13:03 | disposition home or self-care (01) ==
LOC: HO.HOSX 13:02
PROVIDERS: Visit Provider Physician Assistant
DX: Z01.818 Encounter for other preprocedural examination (principal); M97.02XA Periprosthetic fracture around internal prosthetic left hip joint, initial encounter; E11.9 Type 2 diabetes mellitus without complications
CPT/HCPCS: 73502; 99212

== ENCOUNTER 2025-04-01 07:07 | Outpatient (BNV) | payer MEDICARE, SELFPAY | END 2025-04-01 10:13 | PROVIDERS: Admitting Provider Physician Assistant; Visit Provider Radiology Diagnostic Radiology | DX: S72.125A Nondisplaced fracture of lesser trochanter of left femur, initial encounter for closed fracture (principal); Z47.2 Encounter for removal of internal fixation device | CPT/HCPCS: 72170 ==

== ENCOUNTER 2025-04-01 07:07 | Inpatient (IN) | payer MEDICARE, SELFPAY ==
[2025-01-30 10:25] VITALS: BP 126/79; PULSE 80; RESP 16; O2SAT 97; BMI 26.6
--- NOTE | 2025-01-30 10:42 | P.CONAN_ITS ---
HPI - Anesthesia Eval Consult details Narrative: Pending IVC Filter - Vascular office visit 02/20/25 74yo F for Left Total Hip Arthroplasty revision of a revision, 02/18/25 s/p Left SAM 04/17/24 with GA-ETT 7 -> post-op displaced fx during admission and revision L SAM 04/19/25 with spinal Medically optimized per PCP Cardiac optimized. (Eval'd by cardiology prior to 2023 SAM d/t abnormal EKG. No change to EKG or symptoms since) No recent illness No CP/SOB with activity limited by hip pain Post Op DVT 07/2024 - now chronic LLE and Left groin - was on eliquis for 6 months, course completed. Repeat US confirms DVT remains GERD: prn TUMS only PMFSH Active Problems Active Problems: All Active Problems Periprosthetic fracture around internal prosthetic left hip joint (Acute) Status post total hip replacement, left (Acute) Chronic SI joint pain (Acute) Past Medical History Medical History COVID-19 Hx of transfusion of packed red blood cells Anemia DVT (deep venous thrombosis) Hx of malignant neoplasm of kidney Fracture neck of femur Suicide attempt Elevated blood pressure reading in office without diagnosis of hypertension Solitary lung nodule Fatigue Scoliosis of lumbar spine Osteopenia Osteoporosis Panniculitis Pes anserinus bursitis Lumbosacral radiculitis Lumbar spondylosis Degeneration of lumbar intervertebral disc Spinal stenosis of lumbar region Piriformis syndrome Allergic rhinitis Carpal tunnel syndrome Migraine Insomnia Hyperlipidemia Vitamin D deficiency Arthritis of left hip Depression Anxiety Arthritis Fatty liver Osteoarthritis Back pain GERD (gastroesophageal reflux disease) History of blood transfusion (~2000) History of kidney cancer Family History Family history of problems with anesthesia: No Surgical History Surgical History History of esophagogastroduodenoscopy (EGD) History of revision of total hip arthroplasty Hx of unilateral oophorectomy History of total left hip arthroplasty History of nephrectomy, left (~2005) History of pubovaginal sling Hx of colonoscopy Hx of tubal ligation Hx of ovarian cystectomy History of back surgery Hx of right knee surgery History of left knee surgery History of hysterectomy H/O bilateral breast biopsy Hx of appendectomy (~1966) History of Problems with Anesthesia: No Social History Social History Household Members: Significant Other Housing: House Are you a primary child care director to a significant other at home: No Do you presently have visiting nurse or other home services: No 75 years or older and lives alone: No Alcohol intake: never Comment: aware of trip hazard Patient Tobacco Use Status: Former Tobacco user Tobacco use type: Cigarette service: No Meds Allergies Allergy/AdvReac Type Severity Reaction Status Date / Time itraconazole (From Sporanox) Allergy Severe Facial Verified 02/20/25 13:33 Swelling, throat swelling Home Medications ?Medication ?Instructions ?Recorded ?Confirmed ?Last Taken ?Type solifenacin 5 mg tablet (Vesicare) 5 mg PO DAILY 03/0401/30/25 04/16/24 History bupropion HCl 150 mg tablet,12 hr 150 mg PO DAILY 03/2401/30/25 04/16/24 History sustained-release calcium carbonate (Tums) 200 mg PO BID PRN Gastric Re flux 04/09/24 01/30/25 04/16/24 History fluoxetine 40 mg capsule 40 mg PO DAILY 04/09/2401/2104/17/24 History cholecalciferol (vitamin D3) 10 10 mcg PO BEDTIME 10/2201/30/25 Unknown History mcg (400 unit) capsule atorvastatin 10 mg tablet (Lipitor) 10 mg PO BEDTIME 0 01/27/25 01/30/25 Unknown History Exam Height,Weight and Vital Signs: Height 5 ft 6 in Weight 74.843 kg Last Vital Signs Pulse 80 01/30/25 10:25 Resp 16 01/30/25 10:25 BP 126/79 01/30/25 10:25 Pulse Ox 97 01/30/25 10:25 O2 Del Method Room Air 01/30/25 10:25 Narrative Narrative: ECHO 12/2023 Summary The left ventricle is normal in size, wall thickness and systolic function. The ejection fraction is 55-65%. No regional wall motion abnormalities seen. Normal diastolic function. The right ventricle is normal in size and function. No significant valve disease. Comparison Comparison is made to the study of December 12, 2012. EKG 12/2024 Ventricular Rate: 75 BPM Atrial Rate: 75 BPM P-R Interval: 176 ms QRS Duration: 86 ms Q-T Interval: 408 ms QTC Calculation(Bazett): 455 ms P [place]: 35 degrees R [place]: 37 degrees T [place]: 40 degrees Normal sinus rhythm Low voltage QRS Nonspecific ST and T wave abnormality Abnormal ECG When compared with ECG of 27-Jul-2023 13:36, No significant change was found Confirmed by Gerald Keller ([id number]) on 01/23/2025 3:22:24 PM Airway Mallampati Class: II TM Dist: >3cm Neck ROM: Full Partial: Upper Loose/Missing/Broken Teeth: Yes (implants broken, posts remain) Heart: RRR Lungs: CTAB Assessment and Plan Assessment Anesthesia Assessment: Anesthesia Plan Discussed and PAT Visit Final Anesthetic Review Family History of Problems with Anesthesia: No History of Problems with Anesthesia: No
[2025-01-30 12:10] LABS: MRSA Nasal PCR NEGATIVE (Negative); SA Nasal PCR NEGATIVE (Negative)
[2025-03-18 08:17] VITALS: BMI 26.3
[2025-03-27 12:14] LABS: Hemoglobin A1C 117.3091 umol/L; Total Hemoglobin (HGBA1C) 3368.9709 umol/L
[2025-03-27 12:32] LABS: MRSA Nasal PCR NEGATIVE (Negative); SA Nasal PCR NEGATIVE (Negative)
--- OUTSIDE RECORDS SUMMARY | 2025-03-28 23:59 | XMS_ITS | Continuity of Care Document ---
Author Organization [facility] Address [address] [place] [address]- Care Team Providers Care Vp Product Management Name Role Phone Billy Floyd MD Primary Care Physician Encounter 03/21/25 - 03/28/25 [facility] [address], [address] [place] [address]- Attending Physician: Billy Floyd MD Admitting Physician: Billy Floyd MD Referring Physician: Billy Floyd MD Encounter Type: OutPatient One Time Allergies, Adverse Reactions, Alerts Substance Criticality Severity Reaction Reaction Severity Status Sporanox Edema of throat Acti ve Medications Ambien Tablet = 5 mg, By Mouth, Daily at bedtime, PRN sleep, 0 Refills, Soft Stop, 07/03/09 3:56:59 PM EST Start Date: 07/03/09 Stop Date: 07/09/09 Status: Ordered Medication Dispense Status: Completed Total Allowed Fills: 1 Fills Dispensed: 0 BuPROpion = 150 mg, By Mouth, Daily, 0 Refills, Maintenance, 02/23/22 1:58:00 PM EDT, Partial fill upon patientrequest if the prescription is for a schedule II opioid drug. Start Date: 02/23/22 Status: Ordered Medication Dispense Status: Completed Total Allowed Fills: 1 Fills Dispensed: 0 Claritin 10 mg oral tablet 10 mg, 1, tablet, By Mouth, Daily, PRN, # 30 tablet, Refills 0, Maintenance, Congestion, 04/10/24 10:48:00 AM EDT, Partial fill upon patient request if the prescription is for a schedule II opioid drug. Start Date: 04/10/24 Status: Ordered Medication Dispense Status: Completed Quantity: 30.0 Unit: tablet Total Allowed Fills: 1 Fills Dispensed: 0 Meloxicam Daily, 0 Refills, Maintenance, 03/18/24 9:33:00 AM EDT, Partial fill upon patient request if the prescription is for a schedule II opioid drug. Start Date: 03/18/24 Status: Ordered Medication Dispense Status: Completed Total Allowed Fills: 1 Fills Dispensed: 0 Prozac Capsule 40 mg, By Mouth, Daily, Refills 0, Tot. Refills 0, 11/26/07 1:27:01 PM EDT Start Date: 11/26/07 Status: Ordered Medication Dispense Status: Completed Total Allowed Fills: 1 Fills Dispensed: 0 solifenacin 5 mg oral tablet 1 tablet = 5 mg, By Mouth, Daily, # 30 tablet, 0 Refills, Maintenance, 03/18/24 9:33:00 AM EDT, Tablet, Partial fill upon patient request if the prescription is for a schedule II opioid drug. Start Date: 03/18/24 Status: Ordered Medication Dispense Status: Completed Quantity: 30.0 Unit: tablet Total Allowed Fills: 1 Fills Dispensed: 0 Problem List Condition Confirmation Course Effective Dates Status Health St atus Informant Dyspnea on exertion Confirmed Active MDD (major depressive disorder) Confirmed Active Menopause Confirmed Active Osteopenia Confirmed Active Results Radiology Reports * Exam Date Time Procedure Performing Provider Status 03/21/25 11:10 AM MM Digital Mammo Screening Auth (Verified) Notes: (MM Digital Mammo Screening) Reason For Exam: Z12.31 SCREENING RESULT: MM Digital Mammo Screening PROCEDURE: MM Digital Mammo Screening INDICATION: Screening for breast cancer. COMPARISON: 07/02/2009. No other prior examinations are available at the time of interpretation. TECHNIQUE: Full-field digital bilateral CC and MLO 3D tomosynthesis. Computer-aided detection (CAD) was utilized in the interpretation of this study. DENSITY: There are scattered areas of fibroglandular density. FINDINGS: No suspicious masses, microcalcifications, areas of architectural distortion, or skin thickening to suggest malignancy. IMPRESSION: No mammographic evidence of malignancy. RECOMMENDATION: Annual mammographic screening. BI-RADS: 1 (Negative) Lay letter mailed to patient WSN: [id number] Ordering Physician: Billy Floyd By: Zay Moreno MD Dictated Date/Time: 03/23/25 5:33 pm Reviewed By: Zay Moreno MD Signed By: Zay Moreno MD Signed Date/Time: 03/23/25 5:33 pm Transcribed By: KAN Drum Barker Operator Date/Time: 03/23/25 5:31 pm Birads: Social History Social History Type Response Smoking Status Former smoker, quit more than 30 days ago entered on: 03/18/24 Sex Sex Representation Female (finding) Patient Care team information Care Team Personnel Name: Billy Floyd MD Position: [facility] Outreach Member Role: PCP Address: [address] [place] [id number] Telecom: Name: Jah KAY, Shemar Eastman Position: [facility] COIN PURSE FRAMER MD Member Role: Lifetime COIN PURSE FRAMER Physician Address: [address] [place], [place] [address] [facility] Emergency Response Technician [place], [place] [address] Telecom: Care Team Related Persons Name: JAMILA SANTIAGO Name: JAMILA ESTEVEZ Insurance Providers Guarantor name: [facility] Health Plan Information #: 1 Payer: MEDICARE B Payer Identifier: KARI Member Number: [id number] Group Number: Subscriber Identifier: [id number] Relationship to Subscriber: self Coverage Type: NA Coverage Verification Date: NA Telecom: NA Address: Health Plan Information #: 2 Payer: [employer] SECONDARY ONLY Payer Identifier: NA Member Number: [id number] Group Number: NA Subscriber Identifier: [id number] Relationship to Subscriber: self Coverage Type: MEDICARE Coverage Verification Date: NA Telecom: NA Address:
[2025-04-01] VITALS (17 sets, daily range): BP systolic 97–120; BP diastolic 51–70; PULSE 72–91; RESP 11–18; TEMP 36.3–36.9; O2SAT 94–100
--- NOTE | ~2025-04-01 | FL_ITS ---
EXAMINATION: FL GUIDANCE ONLY HISTORY: removal of plate on left hip COMPARISON: Correlation is made to plain films of the left hip dated 03/27/2025. TECHNIQUE: Fluoroscopy time: 0.1 minutes. Cumulative Dose: 1.67 mGy. DAP: 0.0291 mGym2 Images: 2. FINDINGS: Fluoroscopic spot films demonstrate a portion of a left hip arthroplasty. FL/FL guidance in OR IMPRESSION: Fluoroscopy during procedure. Please see procedure report for additional information. Electronically signed by: David Butt MD 04/01/2025 01:12 PM EDT
--- NOTE | ~2025-04-01 | XR_ITS ---
EXAMINATION: XR PELVIS 1-2 VIEWS HISTORY: HIP REVISION LEFT COMPARISON: Correlation is made with plain films of the pelvis dated 10/31/2024. FINDINGS: A single portable view of the pelvis performed at 10:12 AM is submitted. A left total hip arthroplasty is again noted. There has been removal of the previously seen hardware along the greater trochanter. XR/XR pelvis 1-2V IMPRESSION: Interval removal of hardware along the greater trochanter of the left femur. Electronically signed by: David Butt MD 04/01/2025 10:38 AM EDT
--- NOTE | ~2025-04-01 | XR_ITS ---
EXAMINATION: XR LEFT HIP CLINICAL INFORMATION: REVISION LEFT TOTAL HIP COMPARISON: October 31, 2024 TECHNIQUE: AP view of the left hip. FINDINGS: Hardware from revision of total hip arthroplasty is again noted on the left. The distal end of the femoral stem is not included on the x-ray. The greater trochanteric cable plate has been replaced with a longer plate. There are multiple new cerclage wires. The greater trochanter is not as well seen on the current study and may have been partially resected. A vertical lucency is present through the base of the lesser trochanter that was not clearly evident on the prior. XR/XR pelvis 1-2V IMPRESSION: Interval revision of a greater trochanteric cable plate. Greater trochanter is not clearly evident and may have been resected. There is a vertical lucency through the base of the lesser trochanter that was not clearly evident on the prior and could represent an avulsion fracture. Electronically signed by: Vlad Sánchez MD 04/01/2025 02:25 PM EDT
--- OUTSIDE RECORDS SUMMARY | 2025-04-01 07:23 | XMS_ITS | Clinical Summary ---
Author Organization [facility] Address [address] [place] [address] Care Team Providers Care Financial Services Specialist Name Role Phone Billy Floyd MD Primary Care Provider [phone] [phone] Allergies Active Allergy Reactions Criticality Noted Date [...] Density (Females,Ag es 65 and older) 2014 RSV Vaccine 60 years and old er and Patients (1 - 1-dose 75+ series) 2024 Influenza Vaccine 02/21/2025 05/16/2006 COVID-19 Vaccine ( - 2023-2 5 season) 2025 Hepatitis B Vaccines Aged Out No long er eligible based on patient's age to complete this topic Medical Devices Implanted Type Area Pinion Sorter Device Identifier Shelf Expiration Date Model / Serial / Lot 7-13 Rise 8mm Cage Implanted:Qt y: 1 on 02/06/2018 by Shemar Small MD at [facility] Cage N/A: Spine Lumbar [employer] 193.001 / / 35mm Deangelo Implanted:Qt y: 1 on 02/06/2018 by Shemar Small MD at [facility] Nail/Deangelo N/A: Spine Lumbar [employer] MINIMALLY INVASIVE T [id number] / / 40mm Deangelo Implanted:Qt y: 1 on 02/06/2018 by Shemar Small MD at [facility] Nail/Deangelo N/A: Spine Lumbar [employer] MINIMALLY INVASIVE T [id number] / / 6.5 X 55mm Voyager Screw Implanted:Qt y: 1 on 02/06/2018 by Shemar Small MD at [facility] Screw N/A: Spine Lumbar [employer] MINIMALLY INVASIVE T [id number] / / 6.5 X 50mm Voyager Screw Implanted:Qt y: 1 on 02/06/2018 by Shemar Small MD at [facility] Screw N/A: Spine Lumbar [employer] MINIMALLY INVASIVE T [id number] / / 6.5 X 45mm Voyager Screw Implanted:Qt y: 2 on 02/06/2018 by Shmear Small MD at [facility] Screw N/A: Spine Lumbar [employer] MINIMALLY INVASIVE T [id number] / / Fibrinet Implanted:Qt y: 1 on 02/06/2018 by Shemar Small MD at [facility] Tissue N/A: Spine Lumbar Other 03/20/2018 [id number] / / [id number] Insurance MEDICARE PART A & B [facility] Advance Directives * Full Code (Latest Code Status on File) Date Activated Date Inactivated Comments 02/06/2018 3:26 PM Care Teams Financial Services Specialist Relationship Specialty Start Date End Date Billy Floyd MD [address] [address] PCP - General Internal Medicine 01/30/18
--- OUTSIDE RECORDS SUMMARY | 2025-04-01 07:23 | XMS_ITS | Clinical Summary ---
Author Organization [facility] ity Address [address] [place] [address] Care Team Providers Care Reel Stripper Name Role Phone Unavailable Primary Care Provider [...] Documents on File Type Date Recorded Patient Lace Roller Expl anation Health Care Decision (hx) 05/13/2024 AD SAMM DIRECTIVE
[2025-04-01] MEDS: oxyCODONE HCl ER 10 MG TAB.ER.12H PO ×2 (07:30→20:20)
[2025-04-01] MEDS: Lactated Ringers 1,000 ML 100 ML IVCONT ×3 (07:46→20:18)
--- NOTE | 2025-04-01 08:17 | HO.ANESPROP2 ---
Documented by User: Heather Izaguirre NP 03/28/25 15:02 HPI - Anesthesia Eval Consult details Narrative: 74yo F for Left Total Hip Arthroplasty revision of a revision, 04/01/25 s/p Left SAM 04/17/24 with GA-ETT 7 -> post-op displaced fx during admission and revision L SAM 04/19/25 with spinal s/p IVC placement right common femoral vein DVT Medically optimized per PCP Cardiac optimized. (Eval'd by cardiology prior to 2023 SAM d/t abnormal EKG. No change to EKG or symptoms since) No recent illness No CP/SOB with activity limited by hip pain GERD: prn TUMS only PMFSH Active Problems Active Problems: All Active Problems (Updated 02/21/25 @ 10:58 by Xiang Medrano MD) Periprosthetic fracture around internal prosthetic left hip joint (Acute) Status post total hip replacement, left (Acute) Chronic SI joint pain (Acute) DVT (deep venous thrombosis) (Acute) Past Medical History Medical History COVID-19 Hx of transfusion of packed red blood cells Anemia DVT (deep venous thrombosis) Hx of malignant neoplasm of kidney Fracture neck of femur Suicide attempt Elevated blood pressure reading in office without diagnosis of hypertension Solitary lung nodule Fatigue Scoliosis of lumbar spine Osteopenia Osteoporosis Panniculitis Pes anserinus bursitis Lumbosacral radiculitis Lumbar spondylosis Degeneration of lumbar intervertebral disc Spinal stenosis of lumbar region Piriformis syndrome Allergic rhinitis Carpal tunnel syndrome Migraine Insomnia Hyperlipidemia Vitamin D deficiency Arthritis of left hip Depression Anxiety Arthritis Fatty liver Osteoarthritis Back pain GERD (gastroesophageal reflux disease) History of blood transfusion (~2000) History of kidney cancer Family History Family history of problems with anesthesia: No Surgical History Surgical History Hx of surgical procedure History of esophagogastroduodenoscopy (EGD) History of revision of total hip arthroplasty Hx of unilateral oophorectomy History of total left hip arthroplasty History of nephrectomy, left (~2005) History of pubovaginal sling Hx of colonoscopy Hx of tubal ligation Hx of ovarian cystectomy History of back surgery Hx of right knee surgery History of left knee surgery History of hysterectomy H/O bilateral breast biopsy Hx of appendectomy (~1966) History of Problems with Anesthesia: No Social History Social History Household Members: Significant Other Housing: House Are you a primary home health aide caregiver to a significant other at home: No Do you presently have visiting nurse or other home services: No Alcohol intake: never Patient Tobacco Use Status: Former Tobacco user Tobacco use type: Cigarette Use of substances other than those prescribed or required for medical reasons: No Have you been hit, kicked, punched, or otherwise hurt by someone within the past year? If so, by whom?: No Are you DNR?: No Advance Directives: No Advance Directives Information Provided: No Advance Directives on File: No Patient : No : No Poor oral hygiene: Yes service: No Meds Allergies Allergy/AdvReac Type Severity Reaction Status Date / Time itraconazole (From Sporanox) Allergy Severe Facial Verified 04/01/25 07:23 Swelling, throat swelling Home Medications ?Medication ?Instructions ?Recorded ?Confirmed ?Last Taken ?Type bupropion HCl 150 mg tablet,12 hr 150 mg PO DAILY 04/09/24 03/03/25 04/16/24 History sustained-release calcium carbonate (Tums) 200 mg PO BID PRN Gastric Reflux 04/09/24 03/03/25 04/16/24 History fluoxetine 40 mg capsule 40 mg PO DAILY 04/09/24 03/03/25 04/17/24 History atorvastatin 10 mg tablet (Lipitor) 10 mg PO BEDTIME 01/27/25 03/03/25 Unknown History calcium 600 mg (as 1 tab PO BEDTIME 03/18/25 03/18/25 Unknown History carbonate)-vitamin D3 10 mcg (400 unit) tablet (Calcium 600 + D(3)) solifenacin 5 mg tablet (Vesicare) 5 mg PO DAILY 03/18/25 03/18/25 Unknown History Exam Height,Weight and Vital Signs: Height 5 ft 6 in Weight 73.936 kg Last Vital Signs Pulse 80 01/30/25 10:25 Resp 16 01/30/25 10:25 BP 126/79 01/30/25 10:25 Pulse Ox 97 01/30/25 10:25 O2 Del Method Room Air 01/30/25 10:25 Pertinent Lab Results Pertinent Lab Results: Laboratory Tests 01/30/25 03/27/25 03/27/25 10:35 10:55 11:40 ESR Estimat Average Glucose Hemoglobin A1c % C-Reactive Protein Nasal Screen MRSA (PCR) NEGATIVE NEGATIVE Nasal S. aureus Screen NEGATIVE NEGATIVE Nasal MRSA/S.aureus Interp SEE NOTE SEE NOTE Blood Type B Negative Antibody Screen NEGATIVE 03/27/25 11:48 ESR 6 Estimat Average Glucose 105 Hemoglobin A1c % 5.3 C-Reactive Protein 0.23 Nasal Screen MRSA (PCR) Nasal S. aureus Screen Nasal MRSA/S.aureus Interp Blood Type Antibody Screen Laboratory Tests 03/03/25 10:13 WBC 5.8 RBC 4.39 D Hgb 13.5 D Hct 40.4 D Plt Count 250 Assessment and Plan Final Anesthetic Review Family History of Problems with Anesthesia: No History of Problems with Anesthesia: No Documented by User: Anju Landaverde NP 03/31/25 07:55 [facility] Past Medical History Medical History COVID-19 Hx of transfusion of packed red blood cells Anemia DVT (deep venous thrombosis) Hx of malignant neoplasm of kidney Fracture neck of femur Suicide attempt Elevated blood pressure reading in office without diagnosis of hypertension Solitary lung nodule Fatigue Scoliosis of lumbar spine Osteopenia Osteoporosis Panniculitis Pes anserinus bursitis Lumbosacral radiculitis Lumbar spondylosis Degeneration of lumbar intervertebral disc Spinal stenosis of lumbar region Piriformis syndrome Allergic rhinitis Carpal tunnel syndrome Migraine Insomnia Hyperlipidemia Vitamin D deficiency Arthritis of left hip Depression Anxiety Arthritis Fatty liver Osteoarthritis Back pain GERD (gastroesophageal reflux disease) History of blood transfusion (~2000) History of kidney cancer Surgical History Surgical History Hx of surgical procedure History of esophagogastroduodenoscopy (EGD) History of revision of total hip arthroplasty Hx of unilateral oophorectomy History of total left hip arthroplasty History of nephrectomy, left (~2005) History of pubovaginal sling Hx of colonoscopy Hx of tubal ligation Hx of ovarian cystectomy History of back surgery Hx of right knee surgery History of left knee surgery History of hysterectomy H/O bilateral breast biopsy Hx of appendectomy (~1967) Social History Social History Household Members: Significant Other Housing: House Are you a primary home health aide caregiver to a significant other at home: No Do you presently have visiting nurse or other home services: No Alcohol intake: never Patient Tobacco Use Status: Former Tobacco user Tobacco use type: Cigarette Use of substances other than those prescribed or required for medical reasons: No Have you been hit, kicked, punched, or otherwise hurt by someone within the past year? If so, by whom?: No Are you DNR?: No Advance Directives: No Advance Directives Information Provided: No Advance Directives on File: No Patient : No : No Poor oral hygiene: Yes service: No Meds Allergies Allergy/AdvReac Type Severity Reaction Status Date / Time itraconazole (From Sporanox) Allergy Severe Facial Verified 04/01/25 07:23 Swelling, throat swelling Home Medications ?Medication ?Instructions ?Recorded ?Confirmed ?Last Taken ?Type bupropion HCl 150 mg tablet,12 hr 150 mg PO DAILY 04/09/24 03/03/25 04/16/24 History sustained-release calcium carbonate (Tums) 200 mg PO BID PRN Gastric Reflux 04/09/24 03/03/25 04/16/24 History fluoxetine 40 mg capsule 40 mg PO DAILY 04/09/24 03/03/25 04/17/24 History atorvastatin 10 mg tablet (Lipitor) 10 mg PO BEDTIME 01/27/25 03/03/25 Unknown History calcium 600 mg (as 1 tab PO BEDTIME 03/18/25 03/18/25 Unknown History carbonate)-vitamin D3 10 mcg (400 unit) tablet (Calcium 600 + D(3)) solifenacin 5 mg tablet (Vesicare) 5 mg PO DAILY 03/18/25 03/18/25 Unknown History Exam Narrative Narrative: ECHO 12/2023 Summary The left ventricle is normal in size, wall thickness and systolic function. The ejection fraction is 55-65%. No regional wall motion abnormalities seen. Normal diastolic function. The right ventricle is normal in size and function. No significant valve disease. Comparison Comparison is made to the study of December 12, 2012. EKG 12/2024 Ventricular Rate: 75 BPM Atrial Rate: 75 BPM P-R Interval: 176 ms QRS Duration: 86 ms Q-T Interval: 408 ms QTC Calculation(Bazett): 455 ms P [place]: 35 degrees R [place]: 37 degrees T [place]: 40 degrees Normal sinus rhythm Low voltage QRS Nonspecific ST and T wave abnormality Abnormal ECG When compared with ECG of 27-Jul-2023 13:36, No significant change was found Confirmed by Gerald Keller ([id number]) on 01/23/2025 3:22:24 PM Airway Mallampati Class: II TM Dist: >3cm Neck ROM: Full Partial: Upper Loose/Missing/Broken Teeth: Yes (implants broken, posts remain) Assessment and Plan Assessment Anesthesia Assessment: Chart Reviewed (PAT 01/2025) Documented by User: Tricia Ryan DO 04/01/25 08:19 [facility] Past Medical History Medical History COVID-19 Hx of transfusion of packed red blood cells Anemia DVT (deep venous thrombosis) Hx of malignant neoplasm of kidney Fracture neck of femur Suicide attempt Elevated blood pressure reading in office without diagnosis of hypertension Solitary lung nodule Fatigue Scoliosis of lumbar spine Osteopenia Osteoporosis Panniculitis Pes anserinus bursitis Lumbosacral radiculitis Lumbar spondylosis Degeneration of lumbar intervertebral disc Spinal stenosis of lumbar region Piriformis syndrome Allergic rhinitis Carpal tunnel syndrome Migraine Insomnia Hyperlipidemia Vitamin D deficiency Arthritis of left hip Depression Anxiety Arthritis Fatty liver Osteoarthritis Back pain GERD (gastroesophageal reflux disease) History of blood transfusion (~2000) History of kidney cancer Family History Family history of problems with anesthesia: No Surgical History Surgical History Hx of surgical procedure History of esophagogastroduodenoscopy (EGD) History of revision of total hip arthroplasty Hx of unilateral oophorectomy History of total left hip arthroplasty History of nephrectomy, left (~2005) History of pubovaginal sling Hx of colonoscopy Hx of tubal ligation Hx of ovarian cystectomy History of back surgery Hx of right knee surgery History of left knee surgery History of hysterectomy H/O bilateral breast biopsy Hx of appendectomy (~1966) History of Problems with Anesthesia: No Social History Social History Household Members: Significant Other Housing: House Are you a primary home health aide caregiver to a significant other at home: No Do you presently have visiting nurse or other home services: No Alcohol intake: never Patient Tobacco Use Status: Former Tobacco user Tobacco use type: Cigarette Use of substances other than those prescribed or required for medical reasons: No Have you been hit, kicked, punched, or otherwise hurt by someone within the past year? If so, by whom?: No Are you DNR?: No Advance Directives: No Advance Directives Information Provided: No Advance Directives on File: No Patient : No : No Poor oral hygiene: Yes service: No Meds Allergies Allergy/AdvReac Type Severity Reaction Status Date / Time itraconazole (From Sporanox) Allergy Severe Facial Verified 04/01/25 07:23 Swelling, throat swelling Home Medications ?Medication ?Instructions ?Recorded ?Confirmed ?Last Taken ?Type bupropion HCl 150 mg tablet,12 hr 150 mg PO DAILY 04/09/24 03/03/25 04/16/24 History sustained-release calcium carbonate (Tums) 200 mg PO BID PRN Gastric Reflux 04/09/24 03/03/25 04/16/24 History fluoxetine 40 mg capsule 40 mg PO DAILY 04/09/24 03/03/25 04/17/24 History atorvastatin 10 mg tablet (Lipitor) 10 mg PO BEDTIME 01/27/25 03/03/25 Unknown History calcium 600 mg (as 1 tab PO BEDTIME 03/18/25 03/18/25 Unknown History carbonate)-vitamin D3 10 mcg (400 unit) tablet (Calcium 600 + D(3)) solifenacin 5 mg tablet (Vesicare) 5 mg PO DAILY 03/18/25 03/18/25 Unknown History Exam Exam Date and Time: 04/01/25 0818 Height,Weight and Vital Signs: Height 5 ft 6 in Weight 73.936 kg Last Vital Signs Pulse 80 01/30/25 10:25 Resp 16 07/10/25 10:25 BP 126/79 01/30/25 10:25 Pulse Ox 97 01/30/25 10:25 O2 Del Method Room Air 01/30/25 10:25 Vital Signs Pulse Rate 80 01/30/25 10:25 Respiratory Rate 16 01/30/25 10:25 Blood Pressure 126/79 01/30/25 10:25 Pulse Oximetry 97 01/30/25 10:25 Oxygen Delivery Method Room Air 01/30/25 10:25 Temperature 98.4 F 04/01/25 07:47 Pulse Rate 79 04/01/25 07:47 Respiratory Rate 15 04/01/25 07:47 Blood Pressure 110/70 04/01/25 07:47 Pulse Oximetry 97 04/01/25 07:47 Oxygen Delivery Method Room Air 04/01/25 07:47 Airway Mallampati Class: I TM Dist: >3cm Neck ROM: Full Partial: Upper Loose/Missing/Broken Teeth: Yes (implants broken, posts remain) Heart: S1S2 Lungs: CTAB Assessment and Plan Assessment Anesthesia Assessment: Anesthesia Plan Discussed and Chart Reviewed Final Anesthetic Review Family History of Problems with Anesthesia: No History of Problems with Anesthesia: No NPO: Yes ASA Class: III Final Preanesthetic Review: No Changes in Pt Med Stat, Meds/Allgs Chart Reviewed, Consent Obtained/Reviewed and Anes Risks/Benef Reviewed Patient Risk: Intermediate Procedure Risk: Intermediate Anesthetic Plan Anesthetic Plan: GA and Agree w/ Assess. and Plan Disposition: Standard PACU
--- NOTE | 2025-04-01 08:20 | MHC.SHP ---
Pre-Procedural Eval Section A - 24 Hr Update-Section A only Date of Service: 04/01/25 The patient is an INPATIENT: No Changes since office visit: No Cold of Flu in the past 2 weeks, No New Medical Problems, No Changes in Medication and No Patient answered all questions The patient has been examined within 24 hours of the surgical procedure. The History & Physical has been completed within 30 days and I have reviewed it.: Yes Section B - Complete if H&P > 30 days Chief Complaint: Lt SAM revision Allergies: Allergies Allergy/AdvReac Type Severity Reaction Status Date / Time itraconazole (From Sporanox) Allergy Severe Facial Verified 04/01/25 07:23 Swelling, throat swelling Plan I have reviewed the history and physical and performed a pertinent physical examination on my patient. No changes have occurred unless specified. Time Spent With Patient Time: Total time managing care of this patient today ____ minutes.
--- NOTE | 2025-04-01 10:51 | PHA.MEDREC ---
Pharmacy Consult ? Medication Reconciliation Pharmacy has reviewed the medication reconciliation done by nursing, also called [facility] [phone] to confirm med list. Pharmacy staff confirmed rx for atorvastatin 10 mg, bupropion XL 150 mg, fluoxetine 40 mg and vesicare 5 mg are still active.
--- NOTE | 2025-04-01 14:57 | PM.OP ---
Brief Operative Note Date of Service: 04/01/25 Pre-op diagnosis: Greater trochanteric fracture with retained hardware Post-op diagnosis: same Procedure: Revision open reduction internal fixation left greater trochanter Implants: 200mm trochanteric claw plate Surgeon: Akhil Donato MD Anesthesia: GETA and local Was an Support Group Manager used for this Procedure?: Yes Support Group Manager: Sonny Edouard Estimated blood loss (mL): 250 IV fluids (mL): 2,000 Pathology: none sent Condition: stable Disposition: PACU
[2025-04-01] MEDS: oxyCODONE HCl Immed Release 5 MG TABLET PO ×2 (17:44→23:58)
[2025-04-01] MEDS: 0.9 % Sodium Chloride Flush 3 ML SYRINGE IVFLUSH (20:20)
[2025-04-02 00:45] VITALS: RESP 16
--- NOTE | 2025-04-02 00:55 | HO.PM.IMCN ---
History of Present Illness Data of Consult Service Date: 04/02/25 Requesting physician: Sonny Edouard Primary Care Provider: Unknown Physician HPI Reason for consult: medical management pt is a 74 yo f with a pmhx significant for HLD, anxiety/depression, GERD, OAB and hx DVT with failed eliquis tx requring IVC filter (still in place), who is s/p revision open reduction internal fixation L greater trochanter yesterday. pt reports pain flucutates, pain management helps. she is concerned to go home due to pain and feels she needs a STR. she still has some numbness in the upper thigh, but can feel touch. has urinated, no freuqency or dysuria, no chest pain, SOB, nausea or vomiting. Review of Systems Review of Systems: Yes all other systems are reviewed and are negative [facility] Medical History COVID-19 Hx of transfusion of packed red blood cells Anemia DVT (deep venous thrombosis) Hx of malignant neoplasm of kidney Fracture neck of femur Suicide attempt Elevated blood pressure reading in office without diagnosis of hypertension Solitary lung nodule Fatigue Scoliosis of lumbar spine Osteopenia Osteoporosis Panniculitis Pes anserinus bursitis Lumbosacral radiculitis Lumbar spondylosis Degeneration of lumbar intervertebral disc Spinal stenosis of lumbar region Piriformis syndrome Allergic rhinitis Carpal tunnel syndrome Migraine Insomnia Hyperlipidemia Vitamin D deficiency Arthritis of left hip Depression Anxiety Arthritis Fatty liver Osteoarthritis Back pain GERD (gastroesophageal reflux disease) History of blood transfusion (~2000) History of kidney cancer Surgical History Hx of surgical procedure History of esophagogastroduodenoscopy (EGD) History of revision of total hip arthroplasty Hx of unilateral oophorectomy History of total left hip arthroplasty History of nephrectomy, left (~2005) History of pubovaginal sling Hx of colonoscopy Hx of tubal ligation Hx of ovarian cystectomy History of back surgery Hx of right knee surgery History of left knee surgery History of hysterectomy H/O bilateral breast biopsy Hx of appendectomy (~1966) Social History Household Members: Spouse Housing: House Are you a primary intensive care anaesthetist to a significant other at home: No Do you presently have visiting nurse or other home services: No Alcohol intake: never Patient Tobacco Use Status: Former Tobacco user Tobacco use type: Cigarette Use of substances other than those prescribed or required for medical reasons: No Currently Displaying Signs/Symptoms of Drug Intoxication Withdrawal: No Have you been hit, kicked, punched, or otherwise hurt by someone within the past year? If so, by whom?: No Do you feel safe in your current relationship?: Yes Is there a partner from a previous relationship who is making you feel unsafe now?: No Are you made to feel afraid or neglected: No Are you DNR?: No Advance Directives: No Advance Directives Information Provided: No Advance Directives on File: No Do you have a plan to hurt others: No Plan Recently lost weight without trying: No Nutrition Risks: No Nutritional Risk Patient : No : No Poor oral hygiene: No service: No Meds Allergies Allergy/AdvReac Type Severity Reaction Status Date / Time itraconazole (From Sporanox) Allergy Severe Facial Verified 04/01/25 07:23 Swelling, throat swelling Active Medications: Current Medications Acetaminophen (Acetaminophen 325 Mg Tablet) 650 mg PO Q6H PRN PRN Reason: Pain, Mild 1-3,fever,headache Last Admin: 04/01/25 23:59 Dose: 650 mg Bupropion HCl (Bupropion Hcl Xl 150 Mg Tab.Er.24h) 150 mg PO DAILY [facility] Calcium Carbonate (Calcium Carbonate 750 Mg Tab.Chew) 750 mg PO BID PRN PRN Reason: Gastric Reflux Celecoxib (Celecoxib 200 Mg Capsule) 200 mg PO BID [facility] Last Admin: 04/01/25 20:21 Dose: 200 mg Docusate Sodium (Docusate Sodium 100 Mg Capsule) 100 mg PO BID [facility] Last Admin: 04/01/25 20:21 Dose: 100 mg Enoxaparin Sodium (Enoxaparin Sodium 40 Mg/0.4 Ml Syringe) 40 mg SUBCUT Q24H [facility] Fluoxetine HCl (Fluoxetine Hcl 20 Mg Capsule) 40 mg PO DAILY [facility] Hydromorphone HCl (Hydromorphone Hcl 0.5 Mg/0.5 Ml Syringe) 0.25 mg IVPUSH Q4H PRN; Protocol PRN Reason: Pain, Severe (Pain Scale 7-10) Cefazolin Sodium/Dextrose (Ancef) 2 gm in 50 mls @ 100 mls/hr IV Q8H [facility] Stop: 04/02/25 16:59 Lactated Ringer's (Lr) 1,000 mls @ 100 mls/hr IVCONT .Q10H [facility] Stop: 04/02/25 08:00 Last Admin: 04/01/25 20:18 Dose: 100 mls/hr Ondansetron HCl (Ondansetron Hcl 4 Mg/2 Ml Vial) 4 mg IVPUSH Q8H PRN PRN Reason: Nausea and Vomiting Oxycodone HCl (Oxycodone Hcl Er 10 Mg Tab.Er.12h) 10 mg PO BID [facility] Last Admin: 04/01/25 20:20 Dose: 10 mg Oxycodone HCl (Oxycodone Hcl Immed Release 5 Mg Tablet) 5 mg PO Q4H PRN PRN Reason: Pain, Moderate(Pain Scale 4-6) Last Admin: 04/01/25 23:58 Dose: 5 mg Sodium Chloride (0.9 % Sodium Chloride Flush 3 Ml Syringe) 3 ml IVFLUSH QSHIFT [facility] Last Admin: 04/01/25 20:20 Dose: 3 ml Tolterodine Tartrate (Tolterodine Tartrate La 4 Mg Cap.Er.24h) 4 mg PO DAILY [facility] Home Medications ?Medication ?Instructions ?Recorded ?Confirmed ?Last Taken ?Type calcium carbonate (Tums) 200 mg PO BID PRN Gastric Reflux 04/09/24 03/03/25 04/16/24 History fluoxetine 40 mg capsule 40 mg PO DAILY 04/09/24 04/01/25 03/31/25 History atorvastatin 10 mg tablet (Lipitor) 10 mg PO BEDTIME 01/27/25 04/01/25 03/31/25 History calcium 600 mg (as 1 tab PO BEDTIME 03/18/25 04/01/25 03/31/25 History carbonate)-vitamin D3 10 mcg (400 unit) tablet (Calcium 600 + D(3)) solifenacin 5 mg tablet (Vesicare) 5 mg PO DAILY 03/18/25 04/01/25 03/31/25 History bupropion HCl 150 mg 24 hr tablet, 150 mg PO DAILY 04/01/25 04/01/25 Unknown History extended release Physical Exam Vital Signs and Narrative: Vital Signs: Last Vital Signs Temp 98.4 F 04/01/25 16:33 Pulse 83 04/01/25 16:33 Resp 18 04/01/25 16:33 BP 115/64 04/01/25 16:33 Pulse Ox 97 04/01/25 16:33 O2 Del Method Room Air 04/01/25 16:33 O2 Flow Rate 2 04/01/25 14:37 BMI result Body Mass Index 26.3 General: AOx3, no acute distress Resp: CTA bilaterally CVS: S1, S2, RRR GI: +BS, NT, no distention Skin: Warm, dry Neuro: Cranial nerves II-XII grossly intact bilaterally. Motor grossly intact bilaterally. decreased sensation L lateral thigh but motor intact. Extremities: No pitting edema Psych: Appropriate affect Results Imaging Radiologist's Impressions: Impressions Pelvis X-Ray 04/01/25 10:20 IMPRESSION: Interval removal of hardware along the greater trochanter of the left femur. Electronically signed by: David Butt MD 04/01/2025 10:38 AM EDT RP Guidance Fluoroscopy 04/01/25 10:45 IMPRESSION: Fluoroscopy during procedure. Please see procedure report for additional information. Electronically signed by: David Butt MD 04/01/2025 01:12 PM EDT RP Pelvis X-Ray 04/01/25 13:40 IMPRESSION: Interval revision of a greater trochanteric cable plate. Greater trochanter is not clearly evident and may have been resected. There is a vertical lucency through the base of the lesser trochanter that was not clearly evident on the prior and could represent an avulsion fracture. Electronically signed by: Vlad Sánchez MD 04/01/2025 02:25 PM EDT RP Assessment and Plan (1) Periprosthetic fracture around internal prosthetic left hip joint: Status: Acute (2) Status post-operative repair of closed fracture of left hip: Status: Acute Plan pt is a 74 yo f with a pmhx significant for HLD, anxiety/depression, GERD, OAB and hx DVT with failed eliquis tx requring IVC filter (still in place), who is s/p revision open reduction internal fixation L greater trochanter yesterday. s/p revision open reduction internal fixation L greater trochanter - POD1 - plan per surgery - pt requesting STR hx DVT - pt on lovenox, recommend prophylaxis with lovenox x4 weeks post op - recommend early mobilization, compression with pneumoboots, leg exercises to prevent clot formation HLD - continue statin anxiety/depression - continue bupropion and fluoxetine GERD - continue TUMS OAB - continue vesicare Thank you for allowing me to participate in the pt's care. Signing off. Please contact the medical team if any questions or concerns.
--- NOTE | 2025-04-02 00:57 | PC.NURSE ---
Patient void approx 75mL via purewick around midnight.
[2025-04-02 03:36] VITALS: BP 122/62; PULSE 89; RESP 18; TEMP 36.3; O2SAT 96
[2025-04-02 06:05] LABS: MANUAL DIFF FLAG NO
--- NOTE | 2025-04-02 06:08 | PC.NURSE ---
Patient has completed 3 DTV
[2025-04-02 06:23] LABS: Hematocrit 27.8 % (37.0-47.0); Hemoglobin 9.3 g/dl (12.0-16.0); Imm Gran Abs Auto 0.07 X10*3/uL (0.00-0.03); Imm Gran Pct Auto 0.5 % (0.0-0.4); Lymphocytes Absolute Auto 1.1 X10*3/uL (1.2-4.9); Mean Corpuscular HGB Conc 33.5 g/dl (31.0-35.0); Mean Corpuscular Hemoglobin 30.7 pg (27.0-33.0); Mean Corpuscular Volume 91.7 fL (80.0-98.0); NRBC Abs Auto 0.000 X10*3/uL (0.0-0.012); NRBC Pct Auto 0.0 /100WBC (0.0-0.2); Platelet Count 224 X10*3/uL (160-400); Red Blood Count 3.03 X10*6/uL (4.20-5.50); White Blood Count 12.8 X10*3/uL (4.8-10.8)
[2025-04-02] MEDS: oxyCODONE HCl Immed Release 5 MG TABLET PO ×3 (06:26→15:36)
[2025-04-02 06:32] LABS: Anion Gap 13 (12-20); Blood Urea Nitrogen 14 mg/dL (9-16); Calcium 8.2 mg/dL (8.4-10.2); Carbon Dioxide 26 mmol/L (22-29); Chloride 107 mmol/L (96-108); Creatinine Clr Calc Pharmacy 55.5; Estimated Glomerular Filt Rate > 60; Potassium 4.4 mmol/L (3.3-5.1); Sodium 142 mmol/L (135-145)
[2025-04-02 07:45] VITALS: BP 95/49; PULSE 94; RESP 18; TEMP 36.8; O2SAT 95
--- NOTE | 2025-04-02 07:57 | PM.PNORT ---
Subjective Subjective Date of Service: 04/02/25 Interval history: POD1 s/p Revision open reduction internal fixation left greater trochanter Patient is resting in bed comfortably No overnight events Pain is managed No additional complaints Physical Exam Vital Signs: Vital Signs: Last Vital Signs Temp 98.2 F 04/02/25 07:45 Pulse 94 04/02/25 07:45 Resp 18 04/02/25 07:45 BP 95/49 L 04/02/25 07:45 Pulse Ox 95 04/02/25 07:45 O2 Del Method Room Air 04/02/25 07:45 O2 Flow Rate 2 04/01/25 14:37 BMI result Body Mass Index 26.3 Const: General: cooperative, healthy appearing and no acute distress Resp: Effort & Inspection: normal respiratory effort and able to speak in complete sentences Extrem: Other: right hip dressing is c/d/i. Able to dorsi/plantar flex. Calf is supple and nontender. Sensation intact. Pedal pulse intact. Psych: Appearance: grossly normal Mental Status: mental status grossly normal Attitude: cooperative Procedures Date of Service Date of Service: 04/02/25 Progress Note: A&P Assessment and plan (1) Status post-operative repair of closed fracture of left hip: Status: Acute (2) Periprosthetic fracture around internal prosthetic left hip joint: Status: Acute Plan Continue pain mgmnt Begin Lovenox for dvt ppx begin PT/OT: TTWB with walker No NSAIDs: 1 kidney Dispo planning-Pending PT eval, pain mgmnt, rehab placement Time Spent With Patient Time: Total time managing care of this patient today ____ minutes. Quality Stroke Does the patient have a stroke diagnosis?: No VTE Prior VTE?: No VTE Risk Level:: Medical - moderate - high VTE Device Contraindication: N/A - Device Ordered VTE Drug Contraindication: N/A - Med Ordered
[2025-04-02] MEDS: oxyCODONE HCl ER 10 MG TAB.ER.12H PO (08:02)
[2025-04-02] MEDS: buPROPion HCl XL 150 MG TAB.ER.24H PO (08:02)
--- NOTE | 2025-04-02 09:18 | HO.POSTANES ---
Post Anesthesia Evaluation Post Anesthesia Evaluation Date of Service: 04/02/25 Vital Signs: Vital Signs Temp Pulse Resp BP Pulse Ox O2 Del Method 04/02/25 07:45 98.2 F 94 18 95/49 L 95 Room Air 04/02/25 03:36 97.4 F 89 18 122/62 96 Room Air 04/02/25 00:45 16 Anesthesia: General Mental Status: Awake Pain Control: Satisfactory Nausea/Vomiting: None Hydration: Adequate Anesthesia-Related Issues: No Anes. Related Issues
[2025-04-02 09:45] VITALS: BP 100/56; PULSE 89
[2025-04-02] MEDS: Lactated Ringers 1,000 ML 100 ML IVCONT (10:48)
--- NOTE | 2025-04-02 13:27 | PM.DS ---
DS: Providers Provider Date of Service: 04/02/25 Date of admission: 04/01/25 07:07 Date of discharge: 04/02/25 Primary care physician: Unknown Physician Consults: 04/01/25 16:29 Consult to Case Management Routine Comment: revision lt marce str Consult to Hospitalist Routine Comment: Consulting Provider: [facility] Hospitalists Reason For Exam: medical management, h/o dvt DS: Diagnosis Discharge Diagnosis (1) Status post-operative repair of closed fracture of left hip: Status: Acute (2) Periprosthetic fracture around internal prosthetic left hip joint: Status: Acute DS: Summary Hospital Course Hospital Course: The patient underwent a successful left hip open reduction internal fixation, they were transferred to PACU and then to the floor to recover. During their stay, their vitals were stable, afebrile at 98.2. Labs were unremarkable, H/H 9.3/27.8. POD 1 they were started on Lovenox for DVT ppx, they also received Physical Therapy services twice a day. Prior to discharge, their dressing was clean dry and intact, and the plan was to be discharged home with VNA services. Time Attestation Discharge Coordination Time (in mins): 30 Quality: Safe Use of Opioids Does Pt have an Active Cancer Diagnosis on the Problem List?: No Quality: Stroke Does the patient have a stroke diagnosis?: No Physical Exam Vital Signs: Vital Signs: Last Vital Signs Temp 98.2 F 04/02/25 07:45 Pulse 89 04/02/25 09:45 Resp 18 04/02/25 07:45 BP 100/56 L 04/02/25 09:45 Pulse Ox 95 04/02/25 07:45 O2 Del Method Room Air 04/02/25 07:45 O2 Flow Rate 2 04/01/25 14:37 BMI result Body Mass Index 26.3 Const: General: cooperative, healthy appearing and no acute distress Resp: Effort & Inspection: normal respiratory effort and able to speak in complete sentences Extrem: Other: right hip dressing is c/d/i. Able to dorsi/plantar flex. Calf is supple and nontender. Sensation intact. Pedal pulse intact. Psych: Appearance: grossly normal Mental Status: mental status grossly normal Attitude: cooperative DS: Data Data Completed and Pending Completed studies during hospitalization [Text1]: Procedures Removal of Synthetic Substitute from Left Hip Joint, Femoral Surface, Open Approach (04/17/24) Replacement of Left Hip Joint with Ceramic Synthetic Substitute, Uncemented, Open Approach (04/17/24) Replacement of Left Hip Joint, Femoral Surface with Ceramic Synthetic Substitute, Uncemented, Open Approach (04/17/24) Reposition Left Upper Femur with Internal Fixation Device, Open Approach (04/17/24) Transfusion of Nonautologous Red Blood Cells into Peripheral Vein, Percutaneous Approach (04/17/24) Labs on day of discharge: Laboratory Results - last 24 hr 04/02/25 05:28 WBC 12.8 H RBC 3.03 L D Hgb 9.3 L D Hct 27.8 L D MCV 91.7 MCH 30.7 MCHC 33.5 RDW 13.9 Plt Count 224 MPV 9.7 Immature Gran % (Auto) 0.5 H Neut % (Auto) 78.8 H Lymph % (Auto) 8.6 L [place] % (Auto) 11.6 H Eos % (Auto) 0.1 Baso % (Auto) 0.4 Lymph # (Auto) 1.1 L [place] # (Auto) 1.5 H Eos # (Auto) 0.0 Baso # (Auto) 0.1 Abs Immat Gran (auto) 0.07 H Absolute Neuts (auto) 10.1 H Absolute Nucleated RBC 0.000 Nucleated RBC % (auto) 0.0 Sodium 142 Potassium 4.4 Chloride 107 Carbon Dioxide 26 Anion Gap 13 BUN 14 Creatinine 0.90 Estim Creat Clear Calc 55.5 Estimated GFR > 60 Fasting Glucose 99 Calcium 8.2 L D Discharge Plan Discharge Anticipated Discharge Date/Time: 04/02/25 13:25 Patient Disposition: Xfer [facility] Discharge Diagnosis: s/p left hip ORIF Referrals: Sonny Edouard PA-C [Physician Instrument Checker, Orthopedics] - 04/17/25 2:00 pm Discharge Medications: New enoxaparin 40 mg/0.4 mL Syringe 40 mg subcut Q24H 42 Days Qty: 16.8 0RF acetaminophen 325 mg Tablet 650 mg PO Q6H PRN (Reason: Pain, Mild 1-3,Fever,Headache) 30 Days Qty: 240 0RF docusate sodium 100 mg Capsule 100 mg PO BID 30 Days Qty: 60 0RF oxycodone 5 mg Tablet 5 mg PO Q4H PRN (Reason: Pain, Moderate(Pain Scale 4-6)) 7 Days Qty: 42 0RF Rx Instructions: Partial Fill upon patient request. [facility] See [facility] Instructions .ROUTE .MEDSUPPLY Qty: 1 0RF Rx Instructions: Folding front wheeled walker calcium carbonate-vitamin D3 [Calcium 600 + D(3)] 600 mg-10 mcg (400 unit) Tablet 1 tab PO BEDTIME solifenacin [Vesicare] 5 mg Tablet 5 mg PO DAILY bupropion HCl 150 mg Tablet Extended Release 24 Hr 150 mg PO DAILY fluoxetine 40 mg Capsule 40 mg PO DAILY calcium carbonate [Tums] 200 mg calcium (500 mg) Tablet,Chewable 200 mg PO BID PRN (Reason: Gastric Reflux) atorvastatin [Lipitor] 10 mg tablet 10 mg PO BEDTIME Discharge Orders: Discharge Order (Routine); Ordered 04/02/25 Ordered By: Christi George Diet: Advance to usual diet Activity on Discharge: Use cane or walker Stand Alone Forms: Patient Portal Discharge page Print Language: [place] Island[place] Care Plan Goals: Physical Therapy for left hip ORIF: gait training, ROM, glute, core and quad strengthening TTWB with walker Limit stair climbing No showering, no tub bath-keep dressing clean, dry and intact No driving x 6 weeks Continue Lovenox x 6 weeks Follow up with [facility] Orthopedics in 2 weeks -Bandage/Incision Site Care: -Ice 20mins at a time -Make sure you use a towel or cloth on your skin as a barrier -DO NOT remove the bandage -Keep Bandage clean, dry and intact -Do not get the bandage wet: -No tub bath, pools or hot tubs -If there are any concerns regarding the bandage please call orthopedics: [phone] -Precautions: -Do not turn your operative leg inward (avoid twisting the foot in) -Avoid low chairs and deep couches -Use supportive shoes with nonslip soles -Physical Therapy: -Patient is WBAT with the use of a walker -Gait training -Limit stair climbing -Hip range of motion -Strengthening: Quadriceps and hip muscles -Walking: Gait training and gradually increasing distance with walker -Ankle pumps and incentive spirometry to limit the risk of blood clot -Diet: -Resume regular diet as tolerated. -Drink plenty of fluids and eat a high-fiber foods to avoid constipation -This is a common side effect of pain medication) -Take stool softeners as prescribed -Blood Clot Prevention: -Take the prescribed blood thinner as directed for 6 weeks -Perform ankle pumps and walk frequently with the walker and assistance if needed -Report calf pain, swelling, or shortness of breath immediately Health Concerns: None Plan of Treatment: restore fxn to left hip Assessment: stable for discharge
[2025-04-02 15:32] VITALS: BP 102/55; PULSE 91; RESP 20; TEMP 36.6; O2SAT 94
--- NOTE | 2025-04-07 16:17 | P.OP_ITS ---
Operative Note Operative Note Date of Service: 04/01/25 Narrative: Date of Service: 04/01/25 Pre-op diagnosis: Greater trochanteric fracture with retained hardware Post-op diagnosis: same Procedure: Revision open reduction internal fixation left greater trochanter Implants: 200mm trochanteric claw plate Surgeon: Akhil Dnoato MD Anesthesia: GETA and local Was an Optometric Tech used for this Procedure?: Yes Optometric Tech: Sonny Edouard Estimated blood loss (mL): 250 IV fluids (mL): 2,000 Pathology: none sent Condition: stable Disposition: PACU Patient was brought into the operating room and placed in the right lateral decubitus position. All bony prominences were well padded and the limb was prepped and draped in standard sterile fashion. A time-out was called to identify proper site procedure proper surgeon IV antibiotics and 1 g of tranexamic acid were administered. I began by making a curvilinear incision over the posterolateral aspect of the greater trochanter. Dissection was taken down to the tensor fascia which was incised in line with the incision and a Charnley retractor was placed. Cautery was used to maintain hemostasis. A [employer] cautery wand was used to maintain hemostasis as well. I dissected sharply down to the plate over the greater trochanter. I identified the proximal aspect of the plate. I then used a combination of cautery and periosteal elevation and sharp dissection to remove the soft tissue from the plate and surrounding bony fragments. There were broken tension bands that were identified and then removed without complication. I then removed the tension bands from the shaft portion and the tension bands from the proximal portion. With care I was able to slowly dissect the soft tissue and remove the plate from the fractured greater trochanter. I then was able to assess the stability of the trochanteric piece. This was markedly unstable. There was a pseudoarthrosis between the lateral shaft and the greater trochanter. The greater trochanteric piece extended circumferentially around the calcar to include the superior aspect of the lesser tuberosity. The hip was reduced and the the prosthesis was ingrown to the femoral shaft. This was not loose. Normal joint fluid was expressed from the joint. There was no evidence of infection. I slowly dissected around the greater trochanteric piece but this was difficult to mobilize given that it involved the lesser trochanter and a large portion of bone and grown into the calcar and essentially was preventing this from migrating proximally but it was grossly loose. In order to mobilize the greater trochanteric piece I had to separate it from the bone that had developed proximal to the lesser.. This was done slowly and meticulously. IT was a large piece that was independantly loose. I used a rongeur to remove seperate the fragments leaving the greater trochanteric fragment attached to the abductor and collected healthy bone graft on the back table. I was able to isolate and migrate this greater trochanteric piece posterior and distally as it was scared and contracted anterior and proximal. The piece was healthy and strong and securely attached to the abductor tendons but there was abundant scar tissue anteriorly and it was being pulled anterior. I released using periosteal elevation and cautery around the anterior aspect of the greater trochanter. Finally I was left with a sizable and healthy and soled piece of greater trochanteric bone measuring 5 x 4 cm with an attached abductor. A long greater trochanteric claw plate was then affixed closely to bone proximally. Longitudinal sharp dissection was taken through the abductor and I was able to place the tines on the bone of the greater trochanteric piece. Cerclage wire was used to affix the claw to the lesser trochanteric piece. I then brought the piece distally and began by using distal cerclage wire. A total of 6 cerclage wires 5 or which were through the plate were applied to maintain the greater trochanter piece in close proximity to the shaft. The cerclage were placed using standard AO technique. The cerclage were then tightened and I was extremely satisfied with the stability of the fixation. I ranged the hip and there was no motion at the fracture site in the hip was stable. I irrigated copiously with saline. At this point I had collected bone from the lesser trochanteric region and tused a rongeur to create morselized bone graft. 10 cc of Vitoss was also added to the mixture. I then irrigated copiously with pulse lavage. This was impaced under the trochanteric plate and between and around the greater trochanteric piece and the lateral femoral shaft. I was satisfied with the repair and the grafting. I confirmed hardware position with intraoperative AP radiograph. I performed a capsular closure of the ITB with running Quill and Preeti's fascia with 0 Vicryl, subcuticular with 2-0 Vicryl and the skin with sherlyn. Patient was placed into a sterile dressing. Patient was extubated brought to the recovery room in stable condition. There were no known complications.
== END 2025-04-02 17:13 | disposition skilled nursing facility (03) | DRG 481 ==
LOC: HO.SSSA 07:20 → HO.S3 15:42
PROVIDERS: Nurse Practitioner; Orthopaedic Surgery; Admitting Provider Physician Assistant; Visit Provider Physician Assistant
PROC: 0QS704Z Reposition Left Upper Femur with Internal Fixation Device, Open Approach (ICD-10-PCS; principal; 2025-04-01 08:40)
DX: S72.112A Displaced fracture of greater trochanter of left femur, initial encounter for closed fracture (principal); M97.02XA Periprosthetic fracture around internal prosthetic left hip joint, initial encounter; X58.XXXA Exposure to other specified factors, initial encounter; Z90.5 Acquired absence of kidney; Z85.528 Personal history of other malignant neoplasm of kidney; Z87.891 Personal history of nicotine dependence; Z79.899 Other long term (current) drug therapy
CPT/HCPCS: 36415; 72170; 80048; 83036; 85025; 85652; 86140; 86850; 86900; 86901; 87640; 87641; 97162; 97166; C1713; C9088; J0131; J0690; J1100; J1171; J1650; J2003; J2704; J2795; J3010; J7120

== ENCOUNTER → 2025-04-01 07:07 | Outpatient (BNV) | payer MEDICARE, SELFPAY | PROVIDERS: Admitting Provider Physician Assistant; Visit Provider Orthopaedic Surgery | DX: Z47.89 Encounter for other orthopedic aftercare (principal); Z87.81 Personal history of (healed) traumatic fracture; M97.02XA Periprosthetic fracture around internal prosthetic left hip joint, initial encounter | CPT/HCPCS: 27248; 99024 ==

== ENCOUNTER → 2025-04-01 07:07 | Outpatient (BNV) | payer MEDICARE, SELFPAY | PROVIDERS: Admitting Provider Physician Assistant; Visit Provider Physician Assistant | DX: M97.02XA Periprosthetic fracture around internal prosthetic left hip joint, initial encounter (principal); Z98.890 Other specified postprocedural states; Z87.81 Personal history of (healed) traumatic fracture | CPT/HCPCS: 99223 ==

== ENCOUNTER 2025-04-16 08:21 | Outpatient (REF) | payer MEDICARE, SELFPAY ==
--- OUTSIDE RECORDS SUMMARY | 2025-04-16 09:06 | XMS_ITS | Clinical Summary ---
Author Organization [facility] Address [address] [place] [address] Phone Care Team Providers Care Project Management Manager Name Role Phone Billy Floyd MD Primary Care Provider [phone] Allergies Active Allergy Reactions Criticality Noted Date Comments Itraconazole Other High 04/02/2025 Medications solifenacin (VESICARE) 5 mg tablet Take 1 tablet (5 mg total) by mouth 1 (one) time each day. Swallow tablet whole; do not crush, chew, or split. 04/03/20 25 Active acetaminophen (TYLENOL) 325 mg tablet Take 2 tablets (650 mg total) by mouth every 6 (six) hours if needed for mild pain or fever - temperature GREATER than 38 C (100.4 F). 30 tablet 04/08/20 25 Active atorvastatin (LIPITOR) 10 mg tablet Take 1 tablet (10 mg total) by mouth at bedtime. 30 each 04/08/20 25 Active buPROPion XL (WELLBUTRIN XL) 150 mg 24 hr tablet Take 1 tablet (150 mg total) by mouth 1 (one) time each day. Do not crush, chew, or split. 30 each 04/08/20 25 025 Active docusate sodium (COLACE) 100 mg capsule Take 1 capsule (100 mg total) by mouth 2 (two) times a day. 60 each 04/08/20 25 025 Active enoxaparin (LOVENOX) 40 mg/0.4 mL syringeIndica tions:deep vein thrombosis prevention Inject 0.4 mL (40 mg total) under the skin 1 (one) time each day at the same time. 30 each 04/08/20 25 Active FLUoxetine (PROzac) 40 mg capsule Take 1 capsule (40 mg total) by mouth 1 (one) time each day. 30 each 04/08/20 25 Active cholecalcifer ol (VITAMIN D-3) 10 mcg (400 unit) tablet Take 1 tablet (400 Units total) by mouth 1 (one) time each day. 30 each 04/09/20 25 Active senna (SENOKOT) 8.6 mg tablet Take 2 tablets (17.2 mg total) by mouth at bedtime. 60 each 04/08/20 Active enoxaparin (LOVENOX) 40 mg/0.4 mL syringe Inject 0.4 mL (40 mg total) under the skin 1 (one) time each day at the same time. 04/03/20 Discontinued acetaminophen (TYLENOL) 325 mg tablet Take 2 tablets (650 mg total) by mouth every 6 (six) hours if needed for mild pain or fever - temperature GREATER than 38 C (100.4 F). Discontinued docusate sodium (COLACE) 100 mg capsule Take 1 capsule (100 mg total) by mouth 2 (two) times a day. Discontinued oxyCODONE (ROXICODONE) 5 mg immediate release tablet Take 1 tablet (5 mg total) by mouth every 4 (four) hours if needed for moderate pain. Max Daily Amount: 30 mg Discontinued calcium carbonate-vit D3-min 600 mg-10 mcg (400 unit) tablet Take 1 tablet by mouth at bedtime. 04/02/20 Discontinued(St op Taking at Discharge) buPROPion XL (WELLBUTRIN XL) 150 mg 24 hr tablet Take 1 tablet (150 mg total) by mouth 1 (one) time each day. Do not crush, chew, or split. 04/03/20 Discontinued FLUoxetine (PROzac) 40 mg capsule Take 1 capsule (40 mg total) by mouth 1 (one) time each day. 09/11/20 25 09/16/2 025 Discontinued calcium carbonate (TUMS) 500 mg (200 mg elemental calcium) chewable tablet Chew 1 tablet (500 mg total) 2 (two) times a day if needed for indigestion or heartburn. 025 Discontinued(St op Taking at Discharge) atorvastatin (LIPITOR) 10 mg tablet Take 1 tablet (10 mg total) by mouth at bedtime. 025 Discontinued oxyCODONE (ROXICODONE) 5 mg immediate release tablet Take 1 tablet (5 mg total) by mouth every 4 (four) hours if needed for moderate pain for up to 7 days. Max Daily Amount: 30 mg 15 tablet 04/08/20 025 oxyBUTYnin 2.5 mg tablet Take 2.5 mg by mouth 2 (two) times a day. 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 04/02/2025 Encounters Date Type Department Care Team Description 04/07/2025 Plan of Care Documentation [facility] [address] [place] [address] 04/02/2025 5:37 PM EDT - 04/09/2025 12:20 PM EDT Hospital Encounter [facility] [address] [place] [address] Benita Borrero, Discharge Disposition: Home-Health Care c from Last 3 Months Medical History Medical History Date Comments Anemia Osteoporosis GERD (gastroesophageal reflux disease) Depression Social History Tobacco Use Types Packs/Day Years Used Date Smoking Tobacco: Never Assessed Health Literacy Answer Date Recorded How often do you need to hav e someone help you when you read instructions, pamphlets, or other written material from your doctor or pharmacy? Never 04/08/2025 Caregiver: How often do you need to have someone help you when you read instructions, pamphlets, or other written material from your doctor or pharmacy? Not on file 04/08/2025 Transportation Answer Date Recorded Has the lack of transportati on kept you from meetings, work, or from getting things needed for daily living? No Has the lack of transportati on kept you from medical appointments or from getting medications? No 04/03/2025 Social Isolation Answer Date Recorded How often do you feel lonely or isolated from those around you? Sometimes 04/09/2025 Interpersonal Safety Answer Date Record ed Physical Abuse 04/02/2025 Verbal Abuse 04/02/2025 Comments Unknown Sex and Gender Information Value Date Recorded Sex Assigned at Female 04/02/2025 3:26 PM EDT Legal Sex Female 1:27 PM EST Gender Identity Female 04/02/2025 3:26 PM EDT Sexual Orientation Straight 04/02/2025 3: 26 PM EDT Obstetrics History Last Filed Vital Signs Vital Sign Reading Time Taken Comments Blood Pressure 97/63 04/09/2025 7:31 AM EDT Pulse 82 04/09/2025 7:31 AM EDT Temperature 36.8 C (98.2 F) 04/09/2025 7:31 AM EDT Respiratory Rate 18 04/09/2025 7:31 AM EDT Oxygen Saturation 96% 04/09/2025 7:31 AM EDT Inhaled Oxygen Concentration - - Weight 77.2 kg (170 lb 3.2 oz) 04/05/2025 10:05 AM EDT Height 168 cm (5' 6.14 ) 04/02/2025 12:28 PM EDT Body Mass Index 27.35 04/02/2025 12:28 PM EDT Plan of Treatment Health Maintenance Due Date Last Done Comments Zoster Vaccines (3 of 3) 06/19/2020 04/24/2020, 1101/2012 RSV Immunization Adult Patients (1 - 1-dose 75+ series) 2024 Cholesterol Screening (Lipid Panel) 05/17/2024 Colorectal Cancer Screening: Colonoscopy 05/17/2024 Hepatitis C Screening 05/17/2024 Medicare Annual Wellness Visit 05/17/2024 Osteoporosis Screening (Bone Density Screening) 05/17/2024 COVID-19 Vaccine ( season) 2025 11/10/2021, 05/25/2021, 10/26/2020, Additional history exists Influenza Vaccine (#1) 2025 2, 03/24/2021, 03/26/2020, Additional history exists Falls Risk Assessment 04/09/2026 04/09/2025 Social Influencers of Health Screening 04/09/2026 04/09/2025 DTaP,Tdap,and Td Vaccines (4 - Td or Tdap) 06/07/2033 06/07/2023, 08/01/2012, 09/14/1999 Pneumococcal Vaccine: 50+ Years Completed 04/02/2018, 04/21/2016, 10/09/2014 Breast Cancer Screening Discontinued 03/23/2025 Depression Screening Completed 04/09/2025 HIB Vaccines Aged Out No longer eligi [...] to complete this topic RSV Immunization Patients Under 20 months Aged Out No longer eligible based on patient's age to complete this topic Varicella Vaccines Aged Out No longer eligible based on patient's age to complete this topic Procedures Procedure Name Priority Date/Time Associated Diagnosis Comments SOLIS URINE CULTURE TUBE Routine 04/05/2025 1:05 PM EDT URINALYSIS WITH REFLEX MICROSCOPIC AND CULTURE Routine 04/05/2025 1:05 PM EDT URINALYSIS WITH REFLEX MICROSCOPIC AND CULTURE Routine 04/05/2025 1:05 PM EDT CULTURE URINE Routine 04/05/2025 1:05 PM EDT FERRITIN Add-On 04/03/2025 5:18 AM EDT IRON Add-On 04/03/2025 5:18 AM EDT CBC WITH AUTO DIFFERENTIAL Routine 04/03/2025 5:18 AM EDT COMPREHENSIVE METABOLIC PANEL Routine 04/03/2025 5:18 AM EDT CBC AND DIFFERENTIAL Routine 04/03/2025 5:18 AM EDT from Last 3 Months Results * (ABNORMAL) Urinalysis with reflex microscopic and culture (04/05/2025 1:05 PM EDT) Pathologist [facility] Specific [place] Urine 1.013 1.003 - 1.030 LAB URINALYSIS - AUTOMATED METHOD 04/05/2025 1:32 PM [facility] pH, Urine 6.5 5.0 - 8.0 pH LAB URINALYSIS - AUTOMATED METHOD 04/05/2025 1:32 PM [facility] Leukocytes, Urine Trace(A) Negative LAB URINALYSIS - AUTOMATED METHOD 04/05/2025 1:32 PM [facility] Nitrite, Urine Negative Negative LAB URINALYSIS - AUTOMATED METHOD 04/05/2025 1:32 PM [facility] Protein, Urine Trace <=Trace mg/dL LAB URINALYSIS - AUTOMATED METHOD 04/05/2025 1:32 PM [facility] Glucose, Urine Negative Negative mg/dL LAB URINALYSIS - AUTOMATED METHOD 04/05/2025 1:32 PM [facility] Ketones, Urine Negative Negative mg/dL LAB URINALYSIS - AUTOMATED METHOD 04/05/2025 1:32 PM [facility] Urobilinogen, Urine 0.2 0.2 - 1.0 mg/dL LAB URINALYSIS - AUTOMATED METHOD 04/05/2025 1:32 PM [facility] Bilirubin, Urine Negative Negative LAB URINALYSIS - AUTOMATED METHOD 04/05/2025 1:32 PM [facility] Blood, Urine Negative Negative LAB URINALYSIS - AUTOMATED METHOD 04/05/2025 1:[address] [facility] RBC, Urine 2.0 0 - 4 /HPF LAB URINALYSIS - AUTOMATED METHOD 04/05/2025 1:[address] [facility] WBC, Urine 1.1 0 - 4 /HPF LAB URINALYSIS - AUTOMATED METHOD 04/05/2025 1:[address] [facility] Squamous Epithelial, Urine 10 0 - 60 /LPF LAB URINALYSIS - AUTOMATED METHOD 04/05/2025 1:[address] [facility] Bacteria, Urine Negative Negative /HPF LAB URINALYSIS - AUTOMATED METHOD 04/05/2025 1:[address] [facility] Hyaline Casts, Urine 0.0 0 - 3 /LPF LAB URINALYSIS - AUTOMATED METHOD 04/05/2025 1:[address] [facility] Urine Urine specimen obtained by clean catch procedure / Unknown Non-blood Collection / Unknown 04/05/2025 1:05 PM EDT 04/05/2025 1:12 PM EDT us Loraine ASHFORD LAB URINE ORDERABLES Final R esult Performing Organization Address City/[facility]/ZIP Co de Phone Number [facility] [address] [place] [address], [place] [phone] * [facility] urine culture tube (04/05/2025 1:05 PM EDT) Extra Tube Hold for add-ons. 04/05/2025 3:[address] [facility] Comment:Auto resulted. Urine Urine specimen obtained by clean catch procedure / Unknown Non-blood Collection / Unknown 04/05/2025 1:05 PM EDT 04/05/2025 1:12 PM EDT us Loraine ASHFORD LAB URINE ORDERABLES Final R esult [facility] [address] [place] [address], [place] [phone] * Culture urine (04/05/2025 1:05 PM EDT) [facility] Culture, Urine No growth 04/06/2025 7:[address] [facility] Urine Urine specimen obtained by clean catch procedure / Unknown Non-blood Collection / Unknown 04/05/2025 1:05 PM EDT 04/05/2025 1:32 PM EDT Loraine ASHFORD LAB MICROBIOLOGY - GENERAL O RDERABLES Final Result [facility] [address] [place] [address], [place] [phone] * (ABNORMAL) CBC auto differential (04/03/2025 5:18 AM EDT) [facility] WBC 11.6(H) 4.8 - 10.8 K/mcL LAB HEMETOLOGY METHOD 04/03/2025 5:[address] [facility] RBC 2.80(L) 3.80 - 4.80 M/[facility] LAB HEMETOLOGY METHOD 04/03[facility]2025 [facility] Hemoglobin 8.4(L) 11.5 - 16.0 g/dL LAB HEMETOLOGY METHOD 04/03/2025 5:[address] [facility] Hematocrit 26.4(L) 35.0 - 47.0 % LAB HEMETOLOGY METHOD 04/03/2025 5:[address] [facility] MCV 95.3 79.0 - 98.0 FL LAB HEMETOLOGY METHOD 04/03/2025 5:[facility] MCH 30.3 27.0 - 32.0 pcg LAB HEMETOLOGY METHOD 04/03/2025 5:46 [facility] MCHC 31.8(L) 32.0 - 37.0 g/dL LAB HEMETOLOGY METHOD 04/03/2025 5:46 AM [facility] RDW 14.1 11.0 - 15.0 % LAB HEMETOLOGY METHOD 04/03/2025 5:46 AM [facility] Platelets 201 130 - 400 K/mcL LAB HEMETOLOGY METHOD 04/03/2025 5:46 AM [facility] MPV 9.8 7.0 - 11.0 FL LAB HEMETOLOGY METHOD 04/03/2025 5:46 AM [facility] NRBC 0.0 <1.0 % LAB HEMETOLOGY METHOD 04/03/2025 5:46 AM [facility] NRBC Absolute 0.00 <0.10 K/mcL LAB HEMETOLOGY METHOD 04/03/2025 5:46 AM [facility] Neutrophils Relative 69.2 % LAB HEMETOLOGY METHOD 04/03/2025 5:46 AM [facility] Lymphocytes Relative 15.9 % LAB HEMETOLOGY METHOD 04/03/2025 5:46 AM [facility] Monocytes Relative 10.4 % LAB HEMETOLOGY METHOD 04/03/2025 5:46 AM [facility] Eosinophils Relative 3.6 % LAB HEMETOLOGY METHOD 04/03/2025 5:46 AM [facility] Basophils Relative 0.6 % LAB HEMETOLOGY METHOD 04/03/2025 5:46 AM [facility] Immature Granulocytes Relative 0.3 % LAB HEMETOLOGY METHOD 04/03/2025 5:46 AM [facility] Neutrophils Absolute 8.02(H) 1.50 - 7.00 K/mcL LAB HEMETOLOGY METHOD 04/03/2025 5:[address] [facility] Lymphocytes Absolute 1.85 1.00 - 5.00 K/mcL LAB HEMETOLOGY METHOD 04/03/2025 5:[address] [facility] Monocytes Absolute 1.21(H) 0.20 - 1.00 K/mcL LAB HEMETOLOGY METHOD 04/03/2025 5:[address] [facility] Eosinophils Absolute 0.42 0.00 - 0.50 K/[facility] LAB HEMETOLOGY METHOD 04/03/2025 5:[address] [facility] Basophils Absolute 0.07 0.00 - 0.20 K/[facility] LAB HEMETOLOGY METHOD 04/03/2025 5:[address] [facility] Immature Granulocytes Absolute 0.04(H) 0.00 - 0.03 K/[facility] LAB HEMETOLOGY METHOD 04/03/2025 5:[address] [facility] Blood Venous blood specimen / Unknown Venipuncture / Unknown 04/03/2025 5:18 AM EDT 04/03/2025 5:37 AM EDT us Krishna Shafer NP LAB BLOOD ORDERABLES Final Res ult Performing Organization Address [facility]/State/ZIP Co de Phone Number [facility] [address] [place] [address], * (ABNORMAL) Iron (04/03/2025 5:18 AM EDT) Iron 11(L) 40 - 150 mcg/dL LAB CHEMISTRY METHOD 04/04/2025 12:[address] [facility] Blood Venous blood specimen / Unknown Venipuncture / Unknown 04/03/2025 5:18 AM EDT 04/03/2025 5:37 AM EDT us Loraine Urrutia PA LAB BLOOD ORDERABLES Final R esult Performing Organization Address City/[facility]/ZIP Co de Phone Number [facility] [address] [place] [address], [place] [phone] * Ferritin (04/03/2025 5:18 AM EDT) Pathologist [facility] Ferritin 221 8 - 252 ng/mL LAB CHEMISTRY METHOD 04/04/2025 12:[address] [facility] Blood Venous blood specimen / Unknown Venipuncture / Unknown 04/03/2025 5:18 AM EDT 04/03/2025 5:37 AM EDT Loraine ASHFORD LAB BLOOD ORDERABLES Final R esult Performing Organization Address [facility]/ZIP Co de Phone Number [facility] [address] [place] [address], [place] [phone] * (ABNORMAL) Comprehensive metabolic panel (04/03/2025 5:18 AM EDT) [facility] Sodium 140 133 - 145 mmol/L LAB CHEMISTRY METHOD 04/03/2025 6:[address] [facility] Potassium 4.0 3.5 - 5.5 mmol/L LAB CHEMISTRY METHOD 04/03/2025 6:18 AM [facility] Chloride 107 96 - 110 mmol/L LAB CHEMISTRY METHOD 04/03/2025 6:[address] [facility] CO2 29 21 - 32 mmol/L LAB CHEMISTRY METHOD 04/03/2025 6:[address] [facility] Anion Gap 4 3 - 11 LAB CHEMISTRY METHOD 04/03/2025 6:[address] [facility] Glucose 90 70 - 100 mg/dL LAB CHEMISTRY METHOD 04/03/2025 6:18 AM [facility] BUN 18 5 - 25 mg/dL LAB CHEMISTRY METHOD 04/03/2025 6:[address] [facility] Creatinine 0.84 0.50 - 1.10 mg/dL LAB CHEMISTRY METHOD 04/03/2025 6:18 AM [facility] eGFR 73 >=60 mL/min/1. 73m2 LAB CHEMISTRY METHOD 04/03/2025 6:18 AM [facility] Comment:Calculation based on the Chronic Kidney Disease Epidemiology Collaboration (CKD-EPI) equation refit without adjustment for race. BUN/Creatinine Ratio 21.4 LAB CHEMISTRY METHOD 04/03/2025 6:18 AM [facility] Calcium 8.4(L) 8.5 - 10.5 mg/dL LAB CHEMISTRY METHOD 04/03/2025 6:18 AM [facility] AST (SGOT) 53(H) 10 - 42 unit/L LAB CHEMISTRY METHOD 04/03/2025 6:18 AM [facility] ALT (SGPT) 16 10 - 60 unit/L LAB CHEMISTRY METHOD 04/03/2025 6:18 AM [facility] Alkaline Phosphatase 68 42 - 121 unit/L LAB CHEMISTRY METHOD 04/03/2025 6:18 AM [facility] Total Protein 5.2(L) 6.0 - 8.0 g/dL LAB CHEMISTRY METHOD 04/03/2025 6:18 AM [facility] Albumin 2.9(L) 3.2 - 5.0 g/dL LAB CHEMISTRY METHOD 04/03/2025 6:18 AM [facility] Total Bilirubin 0.4 0.0 - 1.4 mg/dL LAB CHEMISTRY METHOD 04/03/2025 6:18 AM [facility] Blood Venous blood specimen / Unknown Venipuncture / Unknown 04/03/2025 5:18 AM EDT 04/03/2025 5:37 AM EDT us Krishan Shafer NP LAB BLOOD ORDERABLES Final Res ult [facility] [address] [place] [address], [place] [phone] from Last 3 Months Insurance MEDICARE [facility] Advance Directives Documents on File Type Date 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 Do not modify or discontinue any currently active code status orders. Care Teams Project Management Manager Relationship Specialty Start Date End Date Billy Floyd MD [address] [place], [place] PCP - General Internal Medicine 04/03/25
--- OUTSIDE RECORDS SUMMARY | 2025-04-16 09:07 | XMS_ITS | Clinical Summary ---
Author Organization [facility] Address [address] [place] [address] Care Team Providers Care Fleet Service Manager Name Role Phone Billy Floyd MD Primary Care Provider [phone] Allergies Active Allergy Reactions Criticality Noted Date [...] this topic Medical Devices Implanted Type Area Sole Leveler Device Identifier Shelf Expiration Date Model / Serial / Lot 7-13 Rise 8mm Cage Implanted:Qt y: 1 on 02/06/2018 by Shemar Small MD at [facility] Cage N/A: Spine Lumbar [employer] 193.001 / / 35mm Deangelo Implanted:Qt y: 1 on 02/06/2018 by Shemar Small MD at [facility] Nail/Deangelo N/A: Spine Lumbar [employer] MINIMALLY INVASIVE T [id number] / / 40mm Deangelo Implanted:Qt y: 1 on 02/06/2018 by Shemar Small MD at [facility] Nail/Deangelo N/A: Spine Lumbar [employer] MINIMALLY INVASIVE T [id number] / / 6.5 X 55mm Voyager Screw Implanted:Qt y: 1 on 02/06/2018 by Shemar Small MD at [facility] Screw N/A: Spine Lumbar [employer] MINIMALLY INVASIVE T [id number] / / 6.5 X 50mm Voyager Screw Implanted:Qt y: 1 on 02/06/2018 by Shemar Small MD at [facility] Screw N/A: Spine Lumbar [employer] MINIMALLY INVASIVE T [id number] / / 6.5 X 45mm Voyager Screw Implanted:Qt y: 2 on 02/06/2018 by Shemar Small MD at [facility] Screw N/A: Spine Lumbar [employer] MINIMALLY INVASIVE T [id number] / / Fibrinet Implanted:Qt y: 1 on 02/06/2018 by Shemar Small MD at [facility] Tissue N/A: Spine Lumbar Other 03/20/2018 [id number] / / [id number] Insurance MEDICARE PART A & B [facility] Advance Directives * Full Code (Latest Code Status on File) Date Activated Date Inactivated Comments 02/06/2018 3:26 PM Care Teams Fleet Service Manager Relationship Specialty Start Date End Date Billy Floyd MD [address] [address] PCP - General Internal Medicine 01/30/18
== END 2025-04-16 08:22 | disposition home or self-care (01) ==
LOC: HO.HOSX 08:21
PROVIDERS: Visit Provider Physician Assistant
DX: Z13.89 Encounter for screening for other disorder (principal)

== ENCOUNTER 2025-04-17 11:16 | Outpatient (REF) | payer MEDICARE, SELFPAY ==
--- NOTE | ~2025-04-17 | XR_ITS ---
EXAMINATION: XR HIP, LEFT CLINICAL INFORMATION: M25.552 - Pain in left hip COMPARISON: Numerous priors, most recently 04/01/2025. TECHNIQUE: AP pelvis, and 2 views of the left hip. FINDINGS: There has been re-revision arthroplasty of the left hip. Lateral plate has been removed and a longer plate has been installed. Numerous cerclage wires present both overlying the greater trochanter and extending to the mid diaphysis. Femoral stem, femoral head component, and acetabular component appears similar in anatomic alignment. No periprosthetic fracture or complication evident. There are lateral skin sherlyn in place. There are vascular calcifications present. On the AP pelvis, there is L4-[address] There are degenerative changes present in the lower lumbar spine. There are mild degenerative changes present in the right hip. The pelvis appears intact without fracture or bone lesion. There are surgical clips in the right inferior pelvis. XR/XR hip LT min 2V IMPRESSION: Revision of revision arthroplasty left hip without definite complication. Electronically signed by: Freddy Kim MD 04/17/2025 02:41 PM EDT
--- OUTSIDE RECORDS SUMMARY | 2025-04-18 13:05 | XMS_ITS | Clinical Summary ---
Author Organization [facility] Address [address] [place] [address] Phone Care Team Providers Care Manager Supplier Name Role Phone Billy Floyd MD Primary Care Provider [phone]- [phone] Allergies Active Allergy Reactions Criticality Noted Date [...] Team Description 04/07/2025 Plan of Care Documentation [facility] [address] [place] [address] 04/02/2025 5:37 PM EDT - 04/09/2025 12:20 PM EDT Hospital Encounter [facility] [address] [place] [address] Benita Borrero, Discharge Disposition: Home-Health Care c [...] and culture (04/05/2025 1:05 PM EDT) Specific [place] Urine 1.013 1.003 - 1.030 LAB URINALYSIS - AUTOMATED METHOD 04/05/2025 1:32 PM [facility] pH, Urine 6.5 5.0 - 8.0 pH LAB URINALYSIS - AUTOMATED METHOD 04/05/2025 1:32 PM [facility] Leukocytes, Urine Trace(A) Negative LAB URINALYSIS - AUTOMATED METHOD 04/05/2025 1:32 PM [facility] Nitrite, Urine Negative Negative LAB URINALYSIS - AUTOMATED METHOD 04/05/2025 1:32 PM [facility] Protein, Urine Trace <=Trace mg/dL LAB URINALYSIS - AUTOMATED METHOD 04/05/2025 1:32 PM [facility] Glucose, Urine Negative Negative mg/dL LAB URINALYSIS - AUTOMATED METHOD 04/05/2025 1:32 PM [facility] Ketones, Urine Negative Negative mg/dL LAB URINALYSIS - AUTOMATED METHOD 04/05/2025 1:32 PM [facility] Urobilinogen, Urine 0.2 0.2 - 1.0 mg/dL LAB URINALYSIS - AUTOMATED METHOD 04/05/2025 1:32 PM [facility] Bilirubin, Urine Negative Negative LAB URINALYSIS - AUTOMATED METHOD 04/05/2025 1:32 PM [facility] Blood, Urine Negative Negative LAB URINALYSIS - AUTOMATED METHOD 04/05/2025 1:32 PM [facility] RBC, Urine 2.0 0 - 4 /HPF LAB URINALYSIS - AUTOMATED METHOD 04/05/2025 1:32 PM EDT [facility] WBC, Urine 1.1 0 - 4 /HPF LAB URINALYSIS - AUTOMATED METHOD 04/05/2025 1:32 PM EDT [facility] Squamous Epithelial, Urine 10 0 - 60 /LPF LAB URINALYSIS - AUTOMATED METHOD 04/05/2025 1:32 PM EDT [facility] Bacteria, Urine Negative Negative /HPF LAB URINALYSIS - AUTOMATED METHOD 04/05/2025 1:32 PM EDT [facility] Hyaline Casts, Urine 0.0 0 - 3 /LPF LAB URINALYSIS - AUTOMATED METHOD 04/05/2025 1:32 PM EDT [facility] Urine Urine specimen obtained by clean catch procedure / Unknown Non-blood Collection / Unknown 04/05/2025 1:05 PM EDT 04/05/2025 1:12 PM EDT us Loraine ASHFORD LAB URINE ORDERABLES Final R esult Performing Organization Address City/[facility]/ZIP Co de Phone Number [facility] [address] [place] [address], [place] [phone] * [facility] urine culture tube (04/05/2025 1:05 PM EDT) Extra Tube Hold for add-ons. 04/05/2025 3:01 PM EDT [facility] Comment:Auto resulted. Urine Urine specimen obtained by clean catch procedure / Unknown Non-blood Collection / Unknown 04/05/2025 1:05 PM EDT 04/05/2025 1:12 PM EDT us Loraine ASHFORD LAB URINE ORDERABLES Final R esult [facility] [address] [place] [address], [place] [phone] * Culture urine (04/05/2025 1:05 PM EDT) [facility] Culture, Urine No growth 04/06/2025 7:24 AM EDT [facility] Urine Urine specimen obtained by clean catch procedure / Unknown Non-blood Collection / Unknown 04/05/2025 1:05 PM EDT 04/05/2025 1:32 PM EDT us Loraine ASHFORD LAB MICROBIOLOGY - GENERAL O RDERABLES Final Result [facility] [address] [place] [address], [place] [phone] * (ABNORMAL) CBC auto differential (04/03/2025 5:18 AM EDT) [facility] WBC 11.6(H) 4.8 - 10.8 K/mcL LAB HEMETOLOGY METHOD 04/03/2025 5:46 AM EDT [facility] RBC 2.80(L) 3.80 - 4.80 M/mcL LAB HEMETOLOGY METHOD 04/03/2025 5:46 AM [facility] Hemoglobin 8.4(L) 11.5 - 16.0 g/dL LAB HEMETOLOGY METHOD 04/03/2025 5:46 AM [facility] Hematocrit 26.4(L) 35.0 - 47.0 % LAB HEMETOLOGY METHOD 04[facility]03[facility]25 [facility] MCV 95.3 79.0 - 98.0 FL LAB HEMETOLOGY METHOD [facility]/03[facility]2025 5[facility] MCH 30.3 27.0 - 32.0 pcg LAB HEMETOLOGY METHOD 04/03/2025 5:46 AM [facility] MCHC 31.8(L) 32.0 - 37.0 g/dL LAB HEMETOLOGY METHOD 04/03/2025 5:46 AM [facility] RDW 14.1 11.0 - 15.0 % LAB HEMETOLOGY METHOD 04/03/2025 5:46 AM [facility] Platelets 201 130 - 400 K/mcL LAB HEMETOLOGY METHOD 04/03/2025 5:46 AM [facility] MPV 9.8 7.0 - 11.0 FL LAB HEMETOLOGY METHOD 04/03/2025 5:46 AM [facility] NRBC 0.0 <1.0 % LAB HEMETOLOGY METHOD 04/03/2025 5:46 AM [facility] NRBC Absolute 0.00 <0.10 K/mcL LAB HEMETOLOGY METHOD 04/03/2025 5:46 AM [facility] Neutrophils Relative 69.2 % LAB HEMETOLOGY METHOD 04/03/2025 5:46 AM [facility] Lymphocytes Relative 15.9 % LAB HEMETOLOGY METHOD 04/03/2025 5:46 AM [facility] Monocytes Relative 10.4 % LAB HEMETOLOGY METHOD 04/03/2025 5:46 AM [facility] Eosinophils Relative 3.6 % LAB HEMETOLOGY METHOD 04/03/2025 5:46 AM [facility] Basophils Relative 0.6 % LAB HEMETOLOGY METHOD 04/03/2025 5:46 AM [facility] Immature Granulocytes Relative 0.3 % LAB HEMETOLOGY METHOD 04/03/2025 5:46 AM [facility] Neutrophils Absolute 8.02(H) 1.50 - 7.00 K/mcL LAB HEMETOLOGY METHOD 04/03/2025 5:46 AM [facility] Lymphocytes Absolute 1.85 1.00 - 5.00 K/[facility] LAB HEMETOLOGY METHOD 04/03/2025 5:46 AM EDT [facility] Monocytes Absolute 1.21(H) 0.20 - 1.00 K/mcL LAB HEMETOLOGY METHOD 04/03/2025 5:46 AM EDT [facility] Eosinophils Absolute 0.42 0.00 - 0.50 K/[facility] LAB HEMETOLOGY METHOD 04/03/2025 5:46 AM EDT [facility] Basophils Absolute 0.07 0.00 - 0.20 K/[facility] LAB HEMETOLOGY METHOD 04/03/2025 5:46 AM EDT [facility] Immature Granulocytes Absolute 0.04(H) 0.00 - 0.03 K/[facility] LAB HEMETOLOGY METHOD 04/03/2025 5:46 AM EDT [facility] Blood Venous blood specimen / Unknown Venipuncture / Unknown 04/03/2025 5:18 AM EDT 04/03/2025 5:37 AM EDT us Krishan Shafer BOX LIDDER LAB BLOOD ORDERABLES Final Res ult Performing Organization Address City/[facility]/ZIP Co de Phone Number [facility] [address] [place] [address], * (ABNORMAL) Iron (04/03/2025 5:18 AM EDT) Iron 11(L) 40 - 150 mcg/dL LAB CHEMISTRY METHOD 04/04/2025 12:56 PM EDT [facility] Blood Venous blood specimen / Unknown Venipuncture / Unknown 04/03/2025 5:18 AM EDT 04/03/2025 5:37 AM EDT us Loraine Urrutia PA LAB BLOOD ORDERABLES Final R esult [facility] [address] [place] [address], [place] [phone] * Ferritin (04/03/2025 5:18 AM EDT) [facility] Ferritin 221 8 - 252 ng/mL LAB CHEMISTRY METHOD 04/04/2025 12:33 PM EDT [facility] Blood Venous blood specimen / Unknown Venipuncture / Unknown 04/03/2025 5:18 AM EDT 04/03/2025 5:37 AM EDT Loraine ASHFORD LAB BLOOD ORDERABLES Final R esult [facility] [address] [place] [address], [place] [phone] * (ABNORMAL) Comprehensive metabolic panel (04/03/2025 5:18 AM EDT) [facility] Sodium 140 133 - 145 mmol/L LAB CHEMISTRY METHOD 04/03/2025 6:18 AM T [facility] Potassium 4.0 3.5 - 5.5 mmol/L LAB CHEMISTRY METHOD 04/03/2025 6:18 AM [facility] Chloride 107 96 - 110 mmol/L LAB CHEMISTRY METHOD 04/03/2025 6:18 AM [facility] CO2 29 21 - 32 mmol/L LAB CHEMISTRY METHOD 04/03/2025 6:18 AM [facility] Anion Gap 4 3 - 11 LAB CHEMISTRY METHOD 04/03/2025 6:18 AM [facility] Glucose 90 70 - 100 mg/dL LAB CHEMISTRY METHOD 04/03/2025 6:18 AM [facility] BUN 18 5 - 25 mg/dL LAB CHEMISTRY METHOD 04/03/2025 6:18 AM [facility] Creatinine 0.84 0.50 - 1.10 mg/dL LAB CHEMISTRY METHOD 04/03/2025 6:18 AM [facility] eGFR 73 >=60 mL/min/1. 73m2 LAB CHEMISTRY METHOD 04/03/2025 6:18 AM [facility] Comment:Calculation based on the Chronic Kidney Disease Epidemiology Collaboration (CKD-EPI) equation refit without adjustment for race. BUN/Creatinine Ratio 21.4 LAB CHEMISTRY METHOD 04/03/2025 6:18 AM [facility] Calcium 8.4(L) 8.5 - 10.5 mg/dL LAB CHEMISTRY METHOD 04/03/2025 6:18 AM [facility] AST (SGOT) 53(H) 10 - 42 unit/L LAB CHEMISTRY METHOD 04/03/2025 6:18 AM [facility] ALT (SGPT) 16 10 - 60 unit/L LAB CHEMISTRY METHOD 04/03/2025 6:18 AM [facility] Alkaline Phosphatase 68 42 - 121 unit/L LAB CHEMISTRY METHOD 04/03/2025 6:18 AM [facility] Total Protein 5.2(L) 6.0 - 8.0 g/dL LAB CHEMISTRY METHOD 04/03/2025 6:18 AM [facility] Albumin 2.9(L) 3.2 - 5.0 g/dL LAB CHEMISTRY METHOD 04/03/2025 6:18 AM [facility] Total Bilirubin 0.4 0.0 - 1.4 mg/dL LAB CHEMISTRY METHOD 04/03/2025 6:18 AM [facility] Blood Venous blood specimen / Unknown Venipuncture / Unknown 04/03/2025 5:18 AM EDT 04/03/2025 5:37 AM EDT us Krishan Shafer NP LAB BLOOD ORDERABLES Final Res ult [facility] [address] [place] [address], [place] [phone] from Last 3 Months Insurance MEDICARE [facility] Advance Directives Documents on File Type Date Recorded Patient Spreader Operator Expl anation Health Care Decision (hx) [...] currently active code status orders. Care Teams Manager Supplier Relationship Specialty Start Date End Date Billy Floyd MD [address] [facility] [address], [place] PCP - General Internal Medicine 04/03/25
--- OUTSIDE RECORDS SUMMARY | 2025-04-18 13:06 | XMS_ITS | Clinical Summary ---
Author Organization [facility] Address [address] [place] [address] Care Team Providers Care Environmental Permitting Specialist Name Role Phone Billy Floyd MD Primary Care Provider [phone] [phone] Allergies Active Allergy Reactions Criticality Noted Date [...] this topic Medical Devices Implanted Type Area Mulcher Operator Device Identifier Shelf Expiration Date Model / Serial / Lot 7-13 Rise 8mm Cage Implanted:Qt y: 1 on 02/06/2018 by Shemar Small MD at [facility] Cage N/A: Spine Lumbar [employer] 193.001 / / 35mm Deangelo Implanted:Qt y: 1 on 02/06/2018 by Shemar Small MD at [facility] Nail/Deangelo N/A: Spine Lumbar [employer] MINIMALLY INVASIVE T [id number] / / 40mm Deangelo Implanted:Qt y: 1 on 02/06/2018 by Shemar Small MD at [facility] Nail/Deangelo N/A: Spine Lumbar [employer] MINIMALLY INVASIVE T [id number] / / 6.5 X 55mm Voyager Screw Implanted:Qt y: 1 on 02/06/2018 by Shemar Small MD at [facility] Screw N/A: Spine Lumbar [employer] MINIMALLY INVASIVE T [id number] / / 6.5 X 50mm Voyager Screw Implanted:Qt y: 1 on 02/06/2018 by Shemar Small MD at [facility] Screw N/A: Spine Lumbar [employer] MINIMALLY INVASIVE T [id number] / / 6.5 X 45mm Voyager Screw Implanted:Qt y: 2 on 02/06/2018 by Shemar Small MD at [facility] Screw N/A: Spine Lumbar [employer] MINIMALLY INVASIVE T [id number] / / Fibrinet Implanted:Qt y: 1 on 02/06/2018 by Shemar Small MD at [facility] Tissue N/A: Spine Lumbar Other 03/20/2018 [id number] / / [id number] Insurance MEDICARE PART A & B [facility] Advance Directives * Full Code (Latest Code Status on File) Date Activated Date Inactivated Comments 02/06/2018 3:26 PM Care Teams Environmental Permitting Specialist Relationship Specialty Start Date End Date Billy Floyd MD [address] [address] PCP - General Internal Medicine 01/30/18
--- OUTSIDE RECORDS SUMMARY | 2025-06-07 20:00 | XMS_ITS | Clinical Summary ---
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 04-10 00:00: 00 [facility] (CURRENT) USE OF ANTICOAGULAN TS Active 04-10 [...] 2023-07 00:00: 00 01-29 23:59 :00 No [id number] NSAID 325 mg 2 TIMES DAILY 325 mg 2 TIMES DAILY (route: oral) Med Classific ation: Analgesic , Anti-infl ammatory or Antipyret ic oxycodone 5 mg capsule 2023-07 00:00: 00 01-29 23:59 :00 No [id number] PAIN 5 mg EVERY 6 HOURS 5 mg EVERY 6 HOURS (route: oral) Med Classific ation: Analgesic , Anti-infl ammatory or Antipyret ic Prozac 40 mg capsule 2023-07 00:00: 00 01-29 23:59 :00 No [id number] DEPRESSION 40 mg DAILY 40 mg DAILY (route: oral) Med Classific ation: Central Nervous System Agents Tylenol 325 mg capsule 2023-07 00:00: 00 01-29 23:59 :00 No [id number] PAIN MED 975 mg 3 TIMES DAILY 975 mg 3 TIMES DAILY (route: oral) Med Classific ation: Analgesic , Anti-infl ammatory or Antipyret ic Vesicare 10 mg tablet 2023-07 00:00: 00 01-29 23:59 :00 No [id number] OVERACTIVE BLADDER 5 mg DAILY 5 mg DAILY (route: oral) Med Classific ation: Genitouri nary Therapy Wellbutrin XL 150 mg 24 hr tablet, extended release 2023-07 00:00: 00 01-29 23:59 :00 No [id number] DEPRESSION 150 mg DAILY 150 mg DAILY (route: oral) Med Classific ation: Central Nervous System Agents Calcium 600 + D(3) 600 mg-10 mcg (400 unit) tablet 2023-07 00:00: 00 01-29 23:59 :00 No [id number] SUPPLEMENT 1 tablet 2 TIMES DAILY 1 [...] CONSULTING PHYSICIANS, RN TO OBSERVE AND ASSESS, PASTRY SUPERVISOR/SCALE TECHNICIAN TO OBSERVE FOR RISK FOR FALLS AND INSTRUCT IN FALL PREVENTION, HOME SAFETY, MEDICATION MANAGEMENT, INFECTION PREVENTION, AND NUTRITION MANAGEMENT. RN/PASTRY SUPERVISOR/SCALE TECHNICIAN NURSE MAY PERFORM O2 SATURATION LEVEL ON ADMISSION AND PRN FOR RN TO ASSESS/PASTRY SUPERVISOR TO OBSERVE PATIENT, WITH NOTIFICATION TO THE PHYSICIAN IF SATURATION IS 90% IN THE ABSENCE OF MORE SPECIFIC PARAMETERS FROM THE PHYSICIAN. AGENCY MAY PERFORM A RESUMPTION OF CARE VISIT FOLLOWING ANY HOSPITAL ADMISSION. RN/PASTRY SUPERVISOR/SCALE TECHNICIAN TO MONITOR CO-MORBID CONDITIONS LISTED ON THE PLAN OF CARE AND ANY NEW CONDITIONS THAT PRESENT THEMSELVES DURING THIS EPISODE TO IDENTIFY CHANGES AND INTERVENE TO MINIMIZE COMPLICATIONS. [code = RN TO OBSERVE, ASSESS, EVALUATE, AND DEVELOP AN INDIVIDUALIZED PLAN OF CARE. AGENCY MAY ACCEPT ORDERS FROM CONSULTING PHYSICIANS, RN TO OBSERVE AND ASSESS, PASTRY SUPERVISOR/SCALE TECHNICIAN TO OBSERVE FOR RISK FOR FALLS AND INSTRUCT IN FALL PREVENTION, HOME SAFETY, MEDICATION MANAGEMENT, INFECTION PREVENTION, AND NUTRITION MANAGEMENT. RN/PASTRY SUPERVISOR/SCALE TECHNICIAN NURSE MAY PERFORM O2 SATURATION LEVEL ON ADMISSION AND PRN FOR RN TO ASSESS/PASTRY SUPERVISOR TO OBSERVE PATIENT, WITH NOTIFICATION TO THE PHYSICIAN IF SATURATION IS 90% IN THE ABSENCE OF MORE SPECIFIC PARAMETERS FROM THE PHYSICIAN. AGENCY MAY PERFORM A RESUMPTION OF CARE VISIT FOLLOWING ANY HOSPITAL ADMISSION. RN/PASTRY SUPERVISOR/SCALE TECHNICIAN TO MONITOR CO-MORBID CONDITIONS LISTED ON THE PLAN OF CARE AND ANY NEW CONDITIONS THAT PRESENT THEMSELVES DURING THIS EPISODE TO IDENTIFY CHANGES AND INTERVENE TO MINIMIZE COMPLICATIONS.] Future Scheduled Test MEDICATION MANAGEMENT; RN/PASTRY SUPERVISOR/SCALE TECHNICIAN TO REVIEW MEDICATIONS FOR INTERACTIONS, EFFECTIVENESS OF DRUG THERAPY, AND SIGNS/SYMPTOMS OF ADVERSE REACTIONS. MAY INSTRUCT AND REINFORCE MEDICATION TEACHING RELATED TO THE USE OF MEDICATIONS, DOSAGE, FREQUENCY, PURPOSE, SIDE EFFECTS, AND TO REPORT COMPLICATIONS. [code = MEDICATION MANAGEMENT; RN/PASTRY SUPERVISOR/SCALE TECHNICIAN TO REVIEW MEDICATIONS FOR INTERACTIONS, EFFECTIVENESS OF DRUG THERAPY, AND SIGNS/SYMPTOMS OF ADVERSE REACTIONS. MAY INSTRUCT AND REINFORCE MEDICATION TEACHING RELATED TO THE USE OF MEDICATIONS, DOSAGE, FREQUENCY, PURPOSE, SIDE EFFECTS, AND TO REPORT COMPLICATIONS.] Future Scheduled Test RN TO ASSE SS/TEACH, PASTRY SUPERVISOR,SCALE TECHNICIAN TO OBSERVE AND TEACH MEASURES FOR RECOVERY AND SELF MANAGEMENT POST HIP REPLACEMENT TO MINIMIZE COMPLICATIONS AND REDUCE RISK OF HOSPITALIZATION. [code = RN TO ASSESS/TEACH, PASTRY SUPERVISOR,SCALE TECHNICIAN TO OBSERVE AND TEACH MEASURES FOR RECOVERY AND SELF MANAGEMENT POST HIP REPLACEMENT TO MINIMIZE COMPLICATIONS AND REDUCE RISK OF HOSPITALIZATION.] Future Scheduled Test RN TO ASSE SS/TEACH, PASTRY SUPERVISOR/SCALE TECHNICIAN TO OBSERVE/TEACH SURGICAL AFTERCARE MANAGEMENT TO AVOID HOSPITALIZATION. [code = RN TO ASSESS/TEACH, PASTRY SUPERVISOR/SCALE TECHNICIAN TO OBSERVE/TEACH SURGICAL AFTERCARE MANAGEMENT TO AVOID HOSPITALIZATION.] Future Scheduled Test RN TO ASSE SS/TEACH, PASTRY SUPERVISOR,SCALE TECHNICIAN TO OBSERVE AND TEACH MEASURES FOR SELF-MANAGEMENT POST A SURGICAL HIP REPLACEMENT OR FEMUR FRACTURE TO MINIMIZE COMPLICATIONS AND REDUCE RISK OF HOSPITALIZATION. [code = RN TO ASSESS/TEACH, PASTRY SUPERVISOR,SCALE TECHNICIAN TO OBSERVE AND TEACH MEASURES FOR SELF-MANAGEMENT POST A SURGICAL HIP REPLACEMENT OR FEMUR FRACTURE TO MINIMIZE COMPLICATIONS AND REDUCE RISK OF HOSPITALIZATION.] Future Scheduled Test PAIN MANAG EMENT; RN TO ASSESS AND TEACH, SCALE TECHNICIAN/PASTRY SUPERVISOR TO OBSERVE AND TEACH AND PROVIDE EDUCATION ON PAIN MANAGEMENT TECHNIQUES. [code = PAIN MANAGEMENT; RN TO ASSESS AND TEACH, SCALE TECHNICIAN/PASTRY SUPERVISOR TO OBSERVE AND TEACH AND PROVIDE EDUCATION ON PAIN MANAGEMENT TECHNIQUES.] Future Scheduled Test BLOOD CLOT MANAGEMENT; RN TO ASSESS AND TEACH/ PASTRY SUPERVISOR /SCALE TECHNICIAN TO OBSERVE AND TEACH AND PROVIDE EDUCATION ON BLOOD CLOT MANAGEMENT. [code = BLOOD CLOT MANAGEMENT; RN TO ASSESS AND TEACH/ PASTRY SUPERVISOR /SCALE TECHNICIAN TO OBSERVE AND TEACH AND PROVIDE EDUCATION ON BLOOD CLOT MANAGEMENT.] Future Scheduled Test FALL REDUC TION MANAGEMENT; RN TO ASSESS AND OBSERVE, PASTRY SUPERVISOR/SCALE TECHNICIAN TO OBSERVE FALL RISK FACTORS AND EDUCATE PATIENT/CAREGIVER ON STRATEGIES TO MINIMIZE THE RISK OF FALLING. [code = FALL REDUCTION MANAGEMENT; RN TO ASSESS AND OBSERVE, PASTRY SUPERVISOR/SCALE TECHNICIAN TO OBSERVE FALL RISK FACTORS AND EDUCATE [...] TO EVALUATE, OBSERVE / ASSESS, AND MONITOR, MUSHROOM GROWING SUPERVISOR TO OBSERVE AND MONITOR, PROVIDE SKILLED THERAPEUTIC INTERVENTION, ACTIVITY, EDUCATION, AND TRAINING TO ADDRESS; PT/MUSHROOM GROWING SUPERVISOR TO PROVIDE GAIT TRAINING FOR IMPROVED MOBILITY AND /OR TO NORMALIZE GAIT PATTERN THERAPEUTIC EXERCISES AND ESTABLISHING A HOME EXERCISE PROGRAM (PT/MUSHROOM GROWING SUPERVISOR) PT/MUSHROOM GROWING SUPERVISOR TO PROVIDE STAIR TRAINING BED TRANSFERS (PT/MUSHROOM GROWING SUPERVISOR) SIT TO/FROM STAND TRANSFERS (PT/MUSHROOM GROWING SUPERVISOR) PT / MUSHROOM GROWING SUPERVISOR TO MONITOR AND EDUCATE ON OXYGEN SATURATION DURING ADLS/IADLS, NOTIFY PHYSICIAN AND/OR THE RN CLINICAL PERMASTONE MECHANIC FOR PHYSICIAN NOTIFICATION AND IF O2 SATS BELOW PHYSICIAN ORDERED PARAMETERS AFTER 10 MIN OF REST PT / MUSHROOM GROWING SUPERVISOR TO EDUCATE ON HIP REPLACEMENT SELF-MANAGEMENT PT/MUSHROOM GROWING SUPERVISOR TO IDENTIFY FALL RISK FACTORS; EDUCATE THE PATIENT/CAREGIVER ON WAYS TO REDUCE FALL RISK FACTORS AND ESTABLISH HOME EXERCISE PROGRAM TO MINIMIZE FALL RISK. MAY TEACH THE PATIENT FLOOR RECOVERY WHEN CLINICALLY APPROPRIATE PT / MUSHROOM GROWING SUPERVISOR MAY EDUCATE ON PAIN MANAGEMENT CLINICALLY INDICATED, INCLUDING NON-PHARMACOLOGICAL PAIN REDUCTION TECHNIQUES. [code = AGENCY MAY PERFORM A RESUMPTION OF CARE VISIT FOLLOWING ANY HOSPITAL ADMISSION. PT TO EVALUATE, OBSERVE / ASSESS, AND MONITOR, MUSHROOM GROWING SUPERVISOR TO OBSERVE AND MONITOR, PROVIDE SKILLED THERAPEUTIC INTERVENTION, ACTIVITY, EDUCATION, AND TRAINING TO ADDRESS; PT/MUSHROOM GROWING SUPERVISOR TO PROVIDE GAIT TRAINING FOR IMPROVED MOBILITY AND /OR TO NORMALIZE GAIT PATTERN THERAPEUTIC EXERCISES AND ESTABLISHING A HOME EXERCISE PROGRAM (PT/MUSHROOM GROWING SUPERVISOR) PT/MUSHROOM GROWING SUPERVISOR TO PROVIDE STAIR TRAINING BED TRANSFERS (PT/MUSHROOM GROWING SUPERVISOR) SIT TO/FROM STAND TRANSFERS (PT/MUSHROOM GROWING SUPERVISOR) PT / MUSHROOM GROWING SUPERVISOR TO MONITOR AND EDUCATE ON OXYGEN SATURATION DURING ADLS/IADLS, NOTIFY PHYSICIAN AND/OR THE RN CLINICAL PERMASTONE MECHANIC FOR PHYSICIAN NOTIFICATION AND IF O2 SATS BELOW PHYSICIAN ORDERED PARAMETERS AFTER 10 MIN OF REST PT / MUSHROOM GROWING SUPERVISOR TO EDUCATE ON HIP REPLACEMENT SELF-MANAGEMENT PT/MUSHROOM GROWING SUPERVISOR TO IDENTIFY FALL RISK FACTORS; EDUCATE THE PATIENT/CAREGIVER ON WAYS TO REDUCE FALL RISK FACTORS AND ESTABLISH HOME EXERCISE PROGRAM TO MINIMIZE FALL RISK. MAY TEACH THE PATIENT FLOOR RECOVERY WHEN CLINICALLY APPROPRIATE PT / MUSHROOM GROWING SUPERVISOR MAY EDUCATE ON PAIN MANAGEMENT CLINICALLY INDICATED, [...] PAIN MANAGEMENT TECHNIQUES BY END OF EPISODE. Encounters Start Date/Time End Date/Time Encounter Type Admission Type Attending [facility] Care Department Encounter ID Discharge Date Discharge Status Discharge Condition Discharge Reason Percent Goals Met 2025-04-10 00:00:00 2025-06-08 00:00:00 Outpatient [place] MORGAN [facility] [id number] 20.83
--- OUTSIDE RECORDS SUMMARY | 2025-06-07 20:00 | XMS_ITS | Clinical Summary ---
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 04-10 00:00: 00 INTERMEDIATE (CURRENT) USE OF ANTICOAGULAN TS Active 04-10 [...] 2023-07 00:00: 00 01-29 23:59 :00 No [id number] NSAID 325 mg 2 TIMES DAILY 325 mg 2 TIMES DAILY (route: oral) Med Classific ation: Analgesic , Anti-infl ammatory or Antipyret ic oxycodone 5 mg capsule 2023-07 00:00: 00 01-29 23:59 :00 No [id number] PAIN 5 mg EVERY 6 HOURS 5 mg EVERY 6 HOURS (route: oral) Med Classific ation: Analgesic , Anti-infl ammatory or Antipyret ic Prozac 40 mg capsule 2023-07 00:00: 00 01-29 23:59 :00 No [id number] DEPRESSION 40 mg DAILY 40 mg DAILY (route: oral) Med Classific ation: Central Nervous System Agents Tylenol 325 mg capsule 2023-07 00:00: 00 01-29 23:59 :00 No [id number] PAIN MED 975 mg 3 TIMES DAILY 975 mg 3 TIMES DAILY (route: oral) Med Classific ation: Analgesic , Anti-infl ammatory or Antipyret ic Vesicare 10 mg tablet 2023-07 00:00: 00 01-29 23:59 :00 No [id number] OVERACTIVE BLADDER 5 mg DAILY 5 mg DAILY (route: oral) Med Classific ation: Genitouri nary Therapy Wellbutrin XL 150 mg 24 hr tablet, extended release 2023-07 00:00: 00 01-29 23:59 :00 No [id number] DEPRESSION 150 mg DAILY 150 mg DAILY (route: oral) Med Classific ation: Central Nervous System Agents Calcium 600 + D(3) 600 mg-10 mcg (400 unit) tablet 2023-07 00:00: 00 01-29 23:59 :00 No [id number] SUPPLEMENT 1 tablet 2 TIMES DAILY 1 [...] CONSULTING PHYSICIANS, RN TO OBSERVE AND ASSESS, FINISHING MACHINE TENDER/DEPUTY MANAGER TO OBSERVE FOR RISK FOR FALLS AND INSTRUCT IN FALL PREVENTION, HOME SAFETY, MEDICATION MANAGEMENT, INFECTION PREVENTION, AND NUTRITION MANAGEMENT. RN/FINISHING MACHINE TENDER/DEPUTY MANAGER NURSE MAY PERFORM O2 SATURATION LEVEL ON ADMISSION AND PRN FOR RN TO ASSESS/FINISHING MACHINE TENDER TO OBSERVE PATIENT, WITH NOTIFICATION TO THE PHYSICIAN IF SATURATION IS 90% IN THE ABSENCE OF MORE SPECIFIC PARAMETERS FROM THE PHYSICIAN. AGENCY MAY PERFORM A RESUMPTION OF CARE VISIT FOLLOWING ANY HOSPITAL ADMISSION. RN/FINISHING MACHINE TENDER/DEPUTY MANAGER TO MONITOR CO-MORBID CONDITIONS LISTED ON THE PLAN OF CARE AND ANY NEW CONDITIONS THAT PRESENT THEMSELVES DURING THIS EPISODE TO IDENTIFY CHANGES AND INTERVENE TO MINIMIZE COMPLICATIONS. [code = RN TO OBSERVE, ASSESS, EVALUATE, AND DEVELOP AN INDIVIDUALIZED PLAN OF CARE. AGENCY MAY ACCEPT ORDERS FROM CONSULTING PHYSICIANS, RN TO OBSERVE AND ASSESS, FINISHING MACHINE TENDER/DEPUTY MANAGER TO OBSERVE FOR RISK FOR FALLS AND INSTRUCT IN FALL PREVENTION, HOME SAFETY, MEDICATION MANAGEMENT, INFECTION PREVENTION, AND NUTRITION MANAGEMENT. RN/FINISHING MACHINE TENDER/DEPUTY MANAGER NURSE MAY PERFORM O2 SATURATION LEVEL ON ADMISSION AND PRN FOR RN TO ASSESS/FINISHING MACHINE TENDER TO OBSERVE PATIENT, WITH NOTIFICATION TO THE PHYSICIAN IF SATURATION IS 90% IN THE ABSENCE OF MORE SPECIFIC PARAMETERS FROM THE PHYSICIAN. AGENCY MAY PERFORM A RESUMPTION OF CARE VISIT FOLLOWING ANY HOSPITAL ADMISSION. RN/FINISHING MACHINE TENDER/DEPUTY MANAGER TO MONITOR CO-MORBID CONDITIONS LISTED ON THE PLAN OF CARE AND ANY NEW CONDITIONS THAT PRESENT THEMSELVES DURING THIS EPISODE TO IDENTIFY CHANGES AND INTERVENE TO MINIMIZE COMPLICATIONS.] Future Scheduled Test MEDICATION MANAGEMENT; RN/FINISHING MACHINE TENDER/DEPUTY MANAGER TO REVIEW MEDICATIONS FOR INTERACTIONS, EFFECTIVENESS OF DRUG THERAPY, AND SIGNS/SYMPTOMS OF ADVERSE REACTIONS. MAY INSTRUCT AND REINFORCE MEDICATION TEACHING RELATED TO THE USE OF MEDICATIONS, DOSAGE, FREQUENCY, PURPOSE, SIDE EFFECTS, AND TO REPORT COMPLICATIONS. [code = MEDICATION MANAGEMENT; RN/FINISHING MACHINE TENDER/DEPUTY MANAGER TO REVIEW MEDICATIONS FOR INTERACTIONS, EFFECTIVENESS OF DRUG THERAPY, AND SIGNS/SYMPTOMS OF ADVERSE REACTIONS. MAY INSTRUCT AND REINFORCE MEDICATION TEACHING RELATED TO THE USE OF MEDICATIONS, DOSAGE, FREQUENCY, PURPOSE, SIDE EFFECTS, AND TO REPORT COMPLICATIONS.] Future Scheduled Test RN TO ASSE SS/TEACH, FINISHING MACHINE TENDER,DEPUTY MANAGER TO OBSERVE AND TEACH MEASURES FOR RECOVERY AND SELF MANAGEMENT POST HIP REPLACEMENT TO MINIMIZE COMPLICATIONS AND REDUCE RISK OF HOSPITALIZATION. [code = RN TO ASSESS/TEACH, FINISHING MACHINE TENDER,DEPUTY MANAGER TO OBSERVE AND TEACH MEASURES FOR RECOVERY AND SELF MANAGEMENT POST HIP REPLACEMENT TO MINIMIZE COMPLICATIONS AND REDUCE RISK OF HOSPITALIZATION.] Future Scheduled Test RN TO ASSE SS/TEACH, FINISHING MACHINE TENDER/DEPUTY MANAGER TO OBSERVE/TEACH SURGICAL AFTERCARE MANAGEMENT TO AVOID HOSPITALIZATION. [code = RN TO ASSESS/TEACH, FINISHING MACHINE TENDER/DEPUTY MANAGER TO OBSERVE/TEACH SURGICAL AFTERCARE MANAGEMENT TO AVOID HOSPITALIZATION.] Future Scheduled Test RN TO ASSE SS/TEACH, FINISHING MACHINE TENDER,DEPUTY MANAGER TO OBSERVE AND TEACH MEASURES FOR SELF-MANAGEMENT POST A SURGICAL HIP REPLACEMENT OR FEMUR FRACTURE TO MINIMIZE COMPLICATIONS AND REDUCE RISK OF HOSPITALIZATION. [code = RN TO ASSESS/TEACH, FINISHING MACHINE TENDER,DEPUTY MANAGER TO OBSERVE AND TEACH MEASURES FOR SELF-MANAGEMENT POST A SURGICAL HIP REPLACEMENT OR FEMUR FRACTURE TO MINIMIZE COMPLICATIONS AND REDUCE RISK OF HOSPITALIZATION.] Future Scheduled Test PAIN MANAG EMENT; RN TO ASSESS AND TEACH, DEPUTY MANAGER/FINISHING MACHINE TENDER TO OBSERVE AND TEACH AND PROVIDE EDUCATION ON PAIN MANAGEMENT TECHNIQUES. [code = PAIN MANAGEMENT; RN TO ASSESS AND TEACH, DEPUTY MANAGER/FINISHING MACHINE TENDER TO OBSERVE AND TEACH AND PROVIDE EDUCATION ON PAIN MANAGEMENT TECHNIQUES.] Future Scheduled Test BLOOD CLOT MANAGEMENT; RN TO ASSESS AND TEACH/ FINISHING MACHINE TENDER /DEPUTY MANAGER TO OBSERVE AND TEACH AND PROVIDE EDUCATION ON BLOOD CLOT MANAGEMENT. [code = BLOOD CLOT MANAGEMENT; RN TO ASSESS AND TEACH/ FINISHING MACHINE TENDER /DEPUTY MANAGER TO OBSERVE AND TEACH AND PROVIDE EDUCATION ON BLOOD CLOT MANAGEMENT.] Future Scheduled Test FALL REDUC TION MANAGEMENT; RN TO ASSESS AND OBSERVE, FINISHING MACHINE TENDER/DEPUTY MANAGER TO OBSERVE FALL RISK FACTORS AND EDUCATE PATIENT/CAREGIVER ON STRATEGIES TO MINIMIZE THE RISK OF FALLING. [code = FALL REDUCTION MANAGEMENT; RN TO ASSESS AND OBSERVE, FINISHING MACHINE TENDER/DEPUTY MANAGER TO OBSERVE FALL RISK FACTORS AND EDUCATE [...] TO EVALUATE, OBSERVE / ASSESS, AND MONITOR, GEOTHERMAL POWERPLANT SUPERVISOR TO OBSERVE AND MONITOR, PROVIDE SKILLED THERAPEUTIC INTERVENTION, ACTIVITY, EDUCATION, AND TRAINING TO ADDRESS; PT/GEOTHERMAL POWERPLANT SUPERVISOR TO PROVIDE GAIT TRAINING FOR IMPROVED MOBILITY AND /OR TO NORMALIZE GAIT PATTERN THERAPEUTIC EXERCISES AND ESTABLISHING A HOME EXERCISE PROGRAM (PT/GEOTHERMAL POWERPLANT SUPERVISOR) PT/GEOTHERMAL POWERPLANT SUPERVISOR TO PROVIDE STAIR TRAINING BED TRANSFERS (PT/GEOTHERMAL POWERPLANT SUPERVISOR) SIT TO/FROM STAND TRANSFERS (PT/GEOTHERMAL POWERPLANT SUPERVISOR) PT / GEOTHERMAL POWERPLANT SUPERVISOR TO MONITOR AND EDUCATE ON OXYGEN SATURATION DURING ADLS/IADLS, NOTIFY PHYSICIAN AND/OR THE RN CLINICAL DRUM STRAIGHTENER FOR PHYSICIAN NOTIFICATION AND IF O2 SATS BELOW PHYSICIAN ORDERED PARAMETERS AFTER 10 MIN OF REST PT / GEOTHERMAL POWERPLANT SUPERVISOR TO EDUCATE ON HIP REPLACEMENT SELF-MANAGEMENT PT/GEOTHERMAL POWERPLANT SUPERVISOR TO IDENTIFY FALL RISK FACTORS; EDUCATE THE PATIENT/CAREGIVER ON WAYS TO REDUCE FALL RISK FACTORS AND ESTABLISH HOME EXERCISE PROGRAM TO MINIMIZE FALL RISK. MAY TEACH THE PATIENT FLOOR RECOVERY WHEN CLINICALLY APPROPRIATE PT / GEOTHERMAL POWERPLANT SUPERVISOR MAY EDUCATE ON PAIN MANAGEMENT CLINICALLY INDICATED, INCLUDING NON-PHARMACOLOGICAL PAIN REDUCTION TECHNIQUES. [code = AGENCY MAY PERFORM A RESUMPTION OF CARE VISIT FOLLOWING ANY HOSPITAL ADMISSION. PT TO EVALUATE, OBSERVE / ASSESS, AND MONITOR, GEOTHERMAL POWERPLANT SUPERVISOR TO OBSERVE AND MONITOR, PROVIDE SKILLED THERAPEUTIC INTERVENTION, ACTIVITY, EDUCATION, AND TRAINING TO ADDRESS; PT/GEOTHERMAL POWERPLANT SUPERVISOR TO PROVIDE GAIT TRAINING FOR IMPROVED MOBILITY AND /OR TO NORMALIZE GAIT PATTERN THERAPEUTIC EXERCISES AND ESTABLISHING A HOME EXERCISE PROGRAM (PT/GEOTHERMAL POWERPLANT SUPERVISOR) PT/GEOTHERMAL POWERPLANT SUPERVISOR TO PROVIDE STAIR TRAINING BED TRANSFERS (PT/GEOTHERMAL POWERPLANT SUPERVISOR) SIT TO/FROM STAND TRANSFERS (PT/GEOTHERMAL POWERPLANT SUPERVISOR) PT / GEOTHERMAL POWERPLANT SUPERVISOR TO MONITOR AND EDUCATE ON OXYGEN SATURATION DURING ADLS/IADLS, NOTIFY PHYSICIAN AND/OR THE RN CLINICAL DRUM STRAIGHTENER FOR PHYSICIAN NOTIFICATION AND IF O2 SATS BELOW PHYSICIAN ORDERED PARAMETERS AFTER 10 MIN OF REST PT / GEOTHERMAL POWERPLANT SUPERVISOR TO EDUCATE ON HIP REPLACEMENT SELF-MANAGEMENT PT/GEOTHERMAL POWERPLANT SUPERVISOR TO IDENTIFY FALL RISK FACTORS; EDUCATE THE PATIENT/CAREGIVER ON WAYS TO REDUCE FALL RISK FACTORS AND ESTABLISH HOME EXERCISE PROGRAM TO MINIMIZE FALL RISK. MAY TEACH THE PATIENT FLOOR RECOVERY WHEN CLINICALLY APPROPRIATE PT / GEOTHERMAL POWERPLANT SUPERVISOR MAY EDUCATE ON PAIN MANAGEMENT CLINICALLY [...] End Date/Time Encounter Type Admission Type Attending [facility] Care Department Encounter ID Discharge Date Discharge Status Discharge Condition Discharge Reason Percent Goals Met 2025-04-10 00:00:00 2025-06-08 00:00:00 Outpatient [place] MORGAN [facility] [id number] 20.83
== END 2025-04-17 11:17 | disposition home or self-care (01) ==
LOC: HO.HOSX 11:16
PROVIDERS: Visit Provider Physician Assistant
DX: M97.02XA Periprosthetic fracture around internal prosthetic left hip joint, initial encounter (principal)
CPT/HCPCS: 73502; 99212

== ENCOUNTER 2025-04-17 14:00 | Outpatient (AMB) | payer MEDICARE, SELFPAY ==
--- NOTE | 2025-04-17 14:18 | A.OFFVIS_ITS ---
<Statement entered by Akhil Donato MD - 04/24/25 09:16> I spoke with Courtney at length about her surgery. I recommend she remain toe- touch weight-bearing with crutches and/or walker. The radiographs redemonstrate excellent position of the plate but this is a t difficult fracture to heal and she understands that. Intake Visit Reasons: 2WKPO: L SAM Rev. w/NE 04/01/25 Intake Note: Courtney is a 74 year old female who presents today post operatively after undergoing a left total hip arthroplasty, performed by Dr. Donato on 04/01/25. Patient reports that her current pain level is an 8 out of 10. She would discuss exactly what happened in surgery as she does not recall. Allergies itraconazole (From Sporanox) Allergy (Severe, Verified 04/17/25 14:20) Facial Swelling, throat swelling Medication List - Last Reconciled 04/17/25 by Sonny Edouard PA-C acetaminophen 650 mg (2 x 325 mg) PO Q6H PRN 30 days atorvastatin (Lipitor) 10 mg PO BEDTIME bupropion HCl XL 150 mg PO DAILY calcium carbonate (Tums) 200 mg PO BID PRN calcium carbonate-vitamin D3 600 mg-10 mcg (400 unit) (Calcium 600 + D(3)) 1 tab PO BEDTIME docusate sodium 100 mg PO BID 30 days enoxaparin 40 mg (0.4 mL) subcut Q24H 42 days fluoxetine 40 mg PO DAILY oxycodone 5 mg PO Q4H PRN 7 days solifenacin (Vesicare) 5 mg PO DAILY walker Folding front wheeled walker HPI HPI 2WKPO: L SAM Rev. w/NE 04/01/25: Details: 75-year-old female returns to the office today status post left total hip revision arthroplasty with them removal of claw plate on 04/01/[address] Donato. The patient comes in today ambulating toe-touch weight-bearing with a walker. She states her pain is definitely improved since before surgery and feels her hip is more stable. FOR[facility], [facility] Medical History COVID-19 Hx of transfusion of packed red blood cells Anemia DVT (deep venous thrombosis) Hx of malignant neoplasm of kidney Fracture neck of femur Suicide attempt Elevated blood pressure reading in office without diagnosis of hypertension Solitary lung nodule Fatigue Scoliosis of lumbar spine Osteopenia Osteoporosis Panniculitis Pes anserinus bursitis Lumbosacral radiculitis Lumbar spondylosis Degeneration of lumbar intervertebral disc Spinal stenosis of lumbar region Piriformis syndrome Allergic rhinitis Carpal tunnel syndrome Migraine Insomnia Hyperlipidemia Vitamin D deficiency Arthritis of left hip Depression Anxiety Arthritis Fatty liver Osteoarthritis Back pain GERD (gastroesophageal reflux disease) History of blood transfusion (~2000) History of kidney cancer Surgical History Hx of surgical procedure History of esophagogastroduodenoscopy (EGD) History of revision of total hip arthroplasty Hx of unilateral oophorectomy History of total left hip arthroplasty History of nephrectomy, left (~2005) History of pubovaginal sling Hx of colonoscopy Hx of tubal ligation Hx of ovarian cystectomy History of back surgery Hx of right knee surgery History of left knee surgery History of hysterectomy H/O bilateral breast biopsy Hx of appendectomy (~1966) Social History Household Members: Spouse Housing: House Are you a primary resident care manager rn to a significant other at home: No Do you presently have visiting nurse or other home services: No 75 years or older and lives alone: No Alcohol intake: never Patient Tobacco Use Status: Former Tobacco user Tobacco use type: Cigarette service: No Review of Systems Const All systems reviewed & are unremarkable except as noted in HPI and below Physical Exam Extrem Other: Left hip incision is clean dry and intact no surrounding erythema or drainage. She has good sensation calf is supple and nontender neurovascularly intact. Results Reviewed Results Reviewed: X-rays of the left hip obtained in the office today and reviewed by me show intact orthopedic hardware with stable fracture pattern. Assessment & Plan Assessment & Plan (1) Periprosthetic fracture around internal prosthetic left hip joint: Code(s): M97.02XA - Periprosthetic fracture around internal prosthetic left hip joint, initial encounter Category: Medical Plan: Dr. Donato was available to see the patient with me today. The sherlyn were removed and Steri-Strips were applied. We explained the extent of the procedure and recovery. Which includes continued toe-touch weight-bearing for another 6 weeks. We need to ensure good bone healing and stability of the fracture site. Patient is scheduled to come back on 05/15/[address] Donato she will see us back sooner if needed. Orders: Orders XR hip LT min 2V Today M25.552 - Pain in left hip Coding Level of Care Code Global (07627) Diagnoses Periprosthetic fracture around internal prosthetic left hip joint M97.02XA
--- OUTSIDE RECORDS SUMMARY | 2025-04-17 18:29 | XMS_ITS | Data Portability ---
Author Organization [facility], Main Office Address [address] [facility] [place] [address] Care Team Providers Care Leadite Heater Name Role Phone MAGGY FLOYD Primary Care Provider [facility] Referring Provider ALLEN RUBALCAVA Orthopedic Surgeon MARTHA PACE Mandarin Tutor JAKE BERNARD Art Supervisor SHARON CASTANEDA Referring Provider JOSE TEMPLETON Orthopedic Surgeon [phone] Referring Provider ELADIA DUKE [facility] JJ DONATO Referring Provider OFE AMIN Referring Provider BETSY NOLASCO Referring Provider Assessment Encounter Date Assessment Date Assessment LastModified by Organization Details LastModified Time 05/09/2024 05/09/2024 This service was provided using telemedicine. Patient consented to video & audio visit Patient was located in the [facility]. Provider was located in the office. No other persons participated in the telemedicine visit except for the patient unless otherwise indicated here. Total time of visit was 25 minutes. [email or web address] Not available 05/10/2024 08:50:33 01/17/2025 01/17/2025 Patient [...] Modified Time Details Appointments FOLLOW UP 2024 10:15Harley kohli MD Not available Not available Not [...] The Location Of Their Choice, 10/08/2024 18:05:52 CBC w/ auto diff 2023 024 [email or web address] [facility] (Centralized Electronic Ordering - All Locations), Patient Can Go To The Location Of Their Choice, 12/06/2024 10:49:51 iron + total iron-bind ing capacity (TIBC), serum 2023 CADENCE [facility] (Centralized [...] to get a second opinion. 2024 025 [facility] Orthopedic Scheduling Dept, [address] [place] [address], [id number], 01/06/2025 20:18:56 Procedures None recorded. Surgeries None recorded. Imaging electroca rdiogram 2024 025 [email or web address] In-Office Order, Internal Use Only DO Not Attach Compendium DO Not Attach Compendium, Do Not Delete/merge, [id number] 01/17/2025 12:40:09 MAMMO, screening , bilateral - Perform Diagnosti c Mammogram and Breast Ultrasoun d if needed / Perform Ultrasoun d Guided Aspiratio n and/or Breast Biopsy if warranted 2024 025 [email or web address] [facility], [address] [place] [address], [id number], 12/13/2024 13:51:12 Medication Orders zolpidem 5 mg tablet 2024 025 [facility], [address] [place], [address], 12/14/2024 08:38:25 calcium 600 mg (as carbonate )-vitamin D3 10 mcg (400 unit) tablet 2023 024 [facility], [address] [place], [address], 10/07/2024 11:18:45 Patient TargetsNo targets recorded. Patient Instructions Encounter Date Encounter Id Patient Instructions Last Modified By Organization Details Last Modified Time 05/07/2024 [id number] I have reviewed the note and agree with the assessment and plan of care. [email or web address] Not available 05/07/2024 11:42:02 05/09/2024 [id number] osteoporosis: care instructions [email or web address] Not available 05/10/2024 09:03:32 anemia: care instructions [email or web address] Not available 05/10/2024 09:04:49 At today's hospital follow up visit, all current and discharge medications (OTC, herbal therapies, supplements) reviewed and reconciled with patient and or caregiver, including potential side effects, drug interactions, instructions, and the consequences of not taking medication. Reviewed potential barriers to medication adherence, such as side effects from medication or cost of medication. [email or web address] Not available 05/09/2024 15:17:45 12/13/2024 [id number] insomnia: care instructions [email or web address] Not available 12/13/2024 [...] Abnormal Flag Note LastModifiedBy Organization Detail LastModifiedTime 10/08/19 25 10/07/2024 CBC WITH DIFFE RENTI AL/PL ATELE T WBC 8.1 x10e3 /uL 3.4-10 .8 normal Not Available [facility] ([facility]) [address] [place], [address], 10/08/2024 18:05:50 10/08/19 25 10/07/2024 CBC WITH DIFFE RENTI AL/PL ATELE T RBC 4.54 x10e6 /uL 3.77-5 .28 normal Not Available [facility] ([facility]) [address] [place], [address], 10/08/2024 18:05:50 10/08/19 25 10/07/2024 CBC WITH DIFFE RENTI AL/PL ATELE T hemoglobin 13.5 g/dL 11.1-1 5.9 normal Not Available [facility] ([facility]) [address] [place], [address], 10/08/2024 18:05:50 10/08/19 25 10/07/2024 CBC WITH DIFFE RENTI AL/PL ATELE T hematocrit 40.2 % 34.0-4 6.6 normal Not Available [facility] ([facility]) [address] [place], [address], 10/08/2024 18:05:50 10/08/19 25 10/07/2024 CBC WITH DIFFE RENTI AL/PL ATELE T MCV 89 fL 79-97 normal Not Available [facility] ([facility]) [address] [place], [address], 10/08/2024 18:05:50 10/08/19 25 10/07/2024 CBC WITH DIFFE RENTI AL/PL ATELE T MCH 29.7 pg 26.6-3 3.0 normal Not Available [facility] ([facility]) [address] [place], [address], 10/08/2024 18:05:50 10/08/19 25 10/07/2024 CBC WITH DIFFE RENTI AL/PL ATELE T MCHC 33.6 g/dL 31.5-3 5.7 normal Not Available [facility] ([facility]) [address] [place], [address], 10/08/2024 18:05:50 10/08/19 25 10/07/2024 CBC WITH DIFFE RENTI AL/PL ATELE T RDW 13.3 % 11.7-1 5.4 Not Available [facility] ([facility]) [address] [place], [address], 10/08/2024 18:05:50 10/08/19 25 10/07/2024 CBC WITH DIFFE RENTI AL/PL ATELE T platelets 369 x10e3 /uL 150-45 0 normal Not Available [facility] ([facility]) [address] [place], [address], 10/08/2024 18:05:50 10/08/19 25 10/07/2024 CBC WITH DIFFE RENTI AL/PL ATELE T neutrophils 65 % not estab. normal Not Available [facility] ([facility]) [address] [place], [address], 10/08/2024 18:05:50 10/08/19 25 10/07/2024 CBC WITH DIFFE RENTI AL/PL ATELE T lymphs 22 % not estab. normal Not Available [facility] ([facility]) [address] [place], [address], 10/08/2024 18:05:50 10/08/19 25 10/07/2024 CBC WITH DIFFE RENTI AL/PL ATELE T monocytes 9 % not estab. normal Not Available [facility] ([facility]) [address] [place], [address], 10/08/2024 18:05:50 10/08/19 25 10/07/2024 CBC WITH DIFFE RENTI AL/PL ATELE T eos 2 % not estab. normal Not Available [facility] ([facility]) [address] [place], [address], 10/08/2024 18:05:50 10/08/19 25 10/07/2024 CBC WITH DIFFE RENTI AL/PL ATELE T basos 1 % not estab. normal Not Available [facility] ([facility]) [address] [place], [address], 10/08/2024 18:05:50 10/08/19 25 10/07/2024 CBC WITH DIFFE RENTI AL/PL ATELE T immature cells [facility] Not Available [facility] ([facility]) [address] [place], [address], 10/08/2024 18:05:50 10/08/19 25 10/07/2024 CBC WITH DIFFE RENTI AL/PL ATELE T neutrophils (absolute) 5.3 x10e3 /uL 1.4-7. 0 normal Not Available [facility] ([facility]) [address] [place], [address], 10/08/2024 18:05:50 10/08/19 25 10/07/2024 CBC WITH DIFFE RENTI AL/PL ATELE T lymphs (absolute) 1.8 x10e3 /uL 0.7-3. 1 normal Not Available [facility] ([facility]) [address] [place], [address], 10/08/2024 18:05:50 10/08/19 25 10/07/2024 CBC WITH DIFFE RENTI AL/PL ATELE T monocytes(ab solute) 0.7 x10e3 /uL 0.1-0. 9 normal Not Available [facility] ([facility]) [address] [facility], [place], [address], 10/08/2024 18:05:50 10/08/19 25 10/07/2024 CBC WITH DIFFE RENTI AL/PL ATELE T eos (absolute) 0.2 x10e3 /uL 0.0-0. 4 normal Not Available [facility] ([facility]) [address] [facility], [place], [address], 10/08/2024 18:05:50 10/08/19 25 10/07/2024 CBC WITH DIFFE RENTI AL/PL ATELE T baso (absolute) 0.1 x10e3 /uL 0.0-0. 2 normal Not Available [facility] ([facility]) [address] [place], [address], 10/08/2024 18:05:50 10/08/19 25 10/07/2024 CBC WITH DIFFE RENTI AL/PL ATELE T immature granulocytes 1 % not estab. Not Available [facility] ([facility]) [address] [place], [address], 10/08/2024 18:05:50 10/08/19 25 10/07/2024 CBC WITH DIFFE RENTI AL/PL ATELE T immature grans (abs) 0.1 x10e3 /uL 0.0-0. 1 Not Available [facility] ([facility]) [address] [place], [address], 10/08/2024 18:05:50 10/08/19 25 10/07/2024 CBC WITH DIFFE RENTI AL/PL ATELE T NRBC [facility] Not Available [facility] ([facility]) [address] [place], [address], 10/08/2024 18:05:50 10/08/19 25 10/07/2024 CBC WITH DIFFE GABI AL/PL ABALE T hematology comments: [facility] Not Available [facility] ([facility]) [address] [place], [address], 10/08/2024 18:05:50 10/08/19 25 10/07/2024 COMP. METAB OLIC PANEL (14) glucose 108 mg/dL 70-99 above high normal Not Available [facility] ([facility]) [address] [place], [address], 10/08/2024 18:05:51 10/08/19 25 10/07/2024 COMP. METAB OLIC PANEL (14) BUN 18 mg/dL 8-27 normal Not Available [facility] ([facility]) [address] [facility], [place], [address], 10/08/2024 18:05:51 10/08/19 25 10/07/2024 COMP. METAB OLIC PANEL (14) creatinine 1.12 mg/dL 0.57-1 .00 above high normal Not Available [facility] ([facility]) [address] [place], [address], 10/08/2024 18:05:51 10/08/19 25 10/07/2024 COMP. METAB OLIC PANEL (14) eGFR 51 mL/mi n/1.7 3 >59 below low normal Not Available [facility] ([facility]) [address] [place], [address], 10/08/2024 18:05:51 10/08/19 25 10/07/2024 COMP. METAB OLIC PANEL (14) BUN/creatini ne ratio 16 12-28 normal Not Available [facility] ([facility]) [address] [place], [address], 10/08/2024 18:05:51 10/08/19 25 10/07/2024 COMP. METAB OLIC PANEL (14) sodium 139 mmol/ L 134-14 4 normal Not Available [facility] ([facility]) [address] [place], [address], 10/08/2024 18:05:51 10/08/19 25 10/07/2024 COMP. METAB OLIC PANEL (14) chloride 102 mmol/ L 96-106 normal Not Available [facility] ([facility]) [address] [place], [address], 10/08/2024 18:05:51 10/08/19 25 10/07/2024 COMP. METAB OLIC PANEL (14) carbon dioxide, total 19 mmol/ L 20-29 below low normal Not Available [facility] ([facility]) [address] [facility] [place], [address], 10/08/2024 18:05:51 10/08/19 25 10/07/2024 COMP. METAB OLIC PANEL (14) calcium 9.6 mg/dL 8.7-10 .3 normal Not Available [facility] ([facility]) [address] [place], [address], 10/08/2024 18:05:51 10/08/19 25 10/07/2024 COMP. METAB OLIC PANEL (14) protein, total 7.1 g/dL 6.0-8. 5 normal Not Available [facility] ([facility]) [address] [facility] [place], [address], 10/08/2024 18:05:51 10/08/19 25 10/07/2024 COMP. METAB OLIC PANEL (14) albumin 4.6 g/dL 3.8-4. 8 normal Not Available [facility] ([facility]) [address] [facility] [place], [address], 10/08/2024 18:05:51 10/08/19 25 10/07/2024 COMP. METAB OLIC PANEL (14) globulin, total 2.5 g/dL 1.5-4. 5 Not Available [facility] ([facility]) [address] [facility], [place], [address], 10/08/2024 18:05:51 10/08/19 25 10/07/2024 COMP. METAB OLIC PANEL (14) bilirubin, total 0.4 mg/dL 0.0-1. 2 normal Not Available [facility] ([facility]) [address] [facility] [place], [address], 10/08/2024 18:05:51 10/08/19 25 10/07/2024 COMP. METAB OLIC PANEL (14) alkaline phosphatase 128 IU/L 44-121 above high normal Not Available [facility] ([facility]) [address] [facility] [place], [address], 10/08/2024 18:05:51 10/08/19 25 10/07/2024 COMP. METAB OLIC PANEL (14) AST (SGOT) 19 IU/L 0-40 normal Not Available [facility] ([facility]) [address] [place], [address], 10/08/2024 18:05:51 10/08/19 25 10/07/2024 COMP. METAB OLIC PANEL (14) ALT (SGPT) 11 IU/L 0-32 normal Not Available [facility] ([facility]) [address] [place], [address], 10/08/2024 18:05:51 10/08/19 25 10/08/2024 COMP. METAB OLIC PANEL (14) potassium 4.4 mmol/ L 3.5-5. 2 normal Not Available [facility] ([facility]) [address] [place], [address], 10/08/2024 18:05:51 10/08/19 25 10/08/2024 VITAM IN [...] Medic ine). 2010. Dieta ry refer ence mariolaak es for calci um and D. Deana nesbitt [place]: The [facility] Press . 2. Soila montalvo [place], Maribell salinas [place], Bisch off-F errar i POSEY, et al. Evalu ation , treat ment, and preve ntion of vitam in D defic iency : an Endoc rine Socie ty clini pantera pract ice guide line. JCEM. 2010; 96(7) :1911 -30. Not Available [facility] ([facility]) [address] [place], [address], 10/08/2024 18:05:52 10/08/19 25 10/08/2024 B-TYP E NATRI URETI C PEPTI DE B-type natriuretic peptide 14.7 pg/mL 0.0-10 0.0 Sieme ns AD[facility] XP metho dolog y Not Available [facility] ([facility]) [address] [place], [address], 10/08/2024 18:05:52 10/08/19 25 10/08/2024 TSH RFX ON ABNOR MAL TO FREE T4 TSH 4.210 uIU/m L 0.450- 4.500 normal Not Available [facility] ([facility]) [address] [place], [address], 10/08/2024 18:05:52 12/19/19 25 12/19/2024 LIPID PANEL cholesterol, total 239 mg/dL 100-19 9 above high normal Not Available [facility] ([facility]) [address] [place], [address], 12/19/2024 06:07:31 12/19/19 25 12/19/2024 LIPID PANEL triglyceride s 97 mg/dL 0-149 normal Not Available [facility] ([facility]) [address] [place], [address], 12/19/2024 06:07:31 12/19/19 25 12/19/2024 LIPID PANEL HDL cholesterol 87 mg/dL >39 normal Not Available [facility] ([facility]) [address] [facility], [place], [address], 12/19/2024 06:07:31 12/19/1912/19/2024 LIPID PANEL VLDL cholesterol pantera 17 mg/dL 5-40 Not Available [facility] ([facility]) [address] [place], [address], 12/19/2024 06:07:31 12/19/1912/19/2024 LIPID PANEL LDL chol calc ([email or web address] 135 mg/dL 0-99 above high normal Not Available [facility] ([facility]) [address] [place], [address], 12/19/2024 06:07:31 12/19/1912/19/2024 LIPID PANEL LDL calc comment: [facility] Not Available [facility] ([facility]) [address] [facility], [place], [address], 12/19/2024 06:07:31 01/18/20 25 01/17/2025 CBC WITH DIFFE RENTI AL/PL ATELE T WBC 6.4 x10e3 /uL 3.4-10 .8 normal Not Available [facility] ([facility]) [address] [place], [address], 01/18/2025 06:07:29 01/18/20 25 01/17/2025 CBC WITH DIFFE RENTI AL/PL ATELE T RBC 4.34 x10e6 /uL 3.77-5 .28 normal Not Available [facility] ([facility]) [address] [place], [address], 01/18/2025 06:07:29 01/18/20 25 01/17/2025 CBC WITH DIFFE RENTI AL/PL ATELE T hemoglobin 13.2 g/dL 11.1-1 5.9 normal Not Available [facility] ([facility]) [address] [place], [address], 01/18/2025 06:07:29 01/18/20 25 01/17/2025 CBC WITH DIFFE RENTI AL/PL ATELE T hematocrit 40.2 % 34.0-4 6.6 normal Not Available [facility] ([facility]) [address] [facility], [place], [address], 01/18/2025 06:07:29 01/18/20 25 01/17/2025 CBC WITH DIFFE RENTI AL/PL ATELE T MCV 93 fL 79-97 normal Not Available [facility] ([facility]) [address] [place], [address], 01/18/2025 06:07:29 01/18/20 25 01/17/2025 CBC WITH DIFFE RENTI AL/PL ATELE T MCH 30.4 pg 26.6-3 3.0 normal Not Available [facility] ([facility]) [address] [place], [address], 01/18/2025 06:07:29 01/18/2001/17/2025 CBC WITH DIFFE RENTI AL/PL ATELE T MCHC 32.8 g/dL 31.5-3 5.7 normal Not Available [facility] ([facility]) [address] [place], [address], 01/18/2025 06:07:29 01/18/20 25 01/17/2025 CBC WITH DIFFE RENTI AL/PL ATELE T RDW 12.9 % 11.7-1 5.4 Not Available [facility] ([facility]) [address] [facility], [place], [address], 01/18/2025 06:07:29 01/18/20 25 01/17/2025 CBC WITH DIFFE RENTI AL/PL ATELE T platelets 281 x10e3 /uL 150-45 0 normal Not Available [facility] ([facility]) [address] [facility], [place], [address], 01/18/2025 06:07:29 01/18/20 25 01/17/2025 CBC WITH DIFFE RENTI AL/PL ATELE T neutrophils 63 % not estab. normal Not Available [facility] ([facility]) [address] [facility], [place], [address], 01/18/2025 06:07:29 01/18/20 25 01/17/2025 CBC WITH DIFFE RENTI AL/PL ATELE T lymphs 25 % not estab. normal Not Available [facility] ([facility]) [address] [facility], [place], [address], 01/18/2025 06:07:29 01/18/20 25 01/17/2025 CBC WITH DIFFE RENTI AL/PL ATELE T monocytes 9 % not estab. normal Not Available [facility] ([facility]) [address] [facility], [place], [address], 01/18/2025 06:07:29 01/18/20 25 01/17/2025 CBC WITH DIFFE RENTI AL/PL ATELE T eos 2 % not estab. normal Not Available [facility] ([facility]) [address] [facility], [place], [address], 01/18/2025 06:07:29 01/18/20 25 01/17/2025 CBC WITH DIFFE RENTI AL/PL ATELE T basos 1 % not estab. normal Not Available [facility] ([facility]) [address] [facility], [place], [address], 01/18/2025 06:07:29 01/18/20 25 01/17/2025 CBC WITH DIFFE RENTI AL/PL ATELE T immature cells [facility] Not Available [facility] ([facility]) [address] [place], [address], 01/18/2025 06:07:29 01/18/20 25 01/17/2025 CBC WITH DIFFE RENTI AL/PL ATELE T neutrophils (absolute) 4.1 x10e3 /uL 1.4-7. 0 normal Not Available [facility] ([facility]) [address] [place], [address], 01/18/2025 06:07:29 01/18/20 25 01/17/2025 CBC WITH DIFFE RENTI AL/PL ATELE T lymphs (absolute) 1.6 x10e3 /uL 0.7-3. 1 normal Not Available [facility] ([facility]) [address] [place], [address], 01/18/2025 06:07:29 01/18/20 25 01/17/2025 CBC WITH DIFFE RENTI AL/PL ATELE T monocytes(ab solute) 0.6 x10e3 /uL 0.1-0. 9 normal Not Available [facility] ([facility]) [address] [place], [address], 01/18/2025 06:07:29 01/18/20 25 01/17/2025 CBC WITH DIFFE RENTI AL/PL ATELE T eos (absolute) 0.2 x10e3 /uL 0.0-0. 4 normal Not Available [facility] ([facility]) [address] [place], [address], 01/18/2025 06:07:29 01/18/20 25 01/17/2025 CBC WITH DIFFE RENTI AL/PL ATELE T baso (absolute) 0.0 x10e3 /uL 0.0-0. 2 normal Not Available [facility] ([facility]) [address] [facility], [place], [address], 01/18/2025 06:07:29 01/18/20 25 01/17/2025 CBC WITH DIFFE RENTI AL/PL ATELE T immature granulocytes 0 % not estab. Not Available [facility] ([facility]) [address] [facility], [place], [address], 01/18/2025 06:07:29 01/18/20 25 01/17/2025 CBC WITH DIFFE RENTI AL/PL ATELE T immature grans (abs) 0.0 x10e3 /uL 0.0-0. 1 Not Available [facility] ([facility]) [address] [facility], [place], [address], 01/18/2025 06:07:29 01/18/20 25 01/17/2025 CBC WITH DIFFE RENTI AL/PL ATELE T NRBC [facility] Not Available [facility] ([facility]) [address] [facility], [place], [address], 01/18/2025 06:07:29 01/18/20 25 01/17/2025 CBC WITH DIFFE RENTI AL/PL ATELE T hematology comments: [facility] Not Available [facility] ([facility]) [address] [facility], [place], [address], 01/18/2025 06:07:29 01/18/20 25 01/18/2025 COMP. METAB OLIC PANEL (14) glucose 82 mg/dL 70-99 normal Not Available [facility] ([facility]) [address] [facility], [place], [address], 01/18/2025 06:07:30 01/18/20 25 01/18/2025 COMP. METAB OLIC PANEL (14) BUN 14 mg/dL 8-27 normal Not Available [facility] ([facility]) [address] [facility], [place], [address], 01/18/2025 06:07:30 01/18/20 25 01/18/2025 COMP. METAB OLIC PANEL (14) creatinine 1.00 mg/dL 0.57-1 .00 normal Not Available [facility] ([facility]) [address] [facility] [place], [address], 01/18/2025 06:07:30 01/18/20 25 01/18/2025 COMP. METAB OLIC PANEL (14) eGFR 59 mL/mi n/1.7 3 >59 below low normal Not Available [facility] ([facility]) [address] [facility] [place], [address], 01/18/2025 06:07:30 01/18/20 25 01/18/2025 COMP. METAB OLIC PANEL (14) BUN/creatini ne ratio 14 12-28 normal Not Available [facility] ([facility]) [address] [facility] [place], [address], 01/18/2025 06:07:30 01/18/20 25 01/18/2025 COMP. METAB OLIC PANEL (14) sodium 140 mmol/ L 134-14 4 normal Not Available [facility] ([facility]) [address] [facility] [place], [address], 01/18/2025 06:07:30 01/18/20 25 01/18/2025 COMP. METAB OLIC PANEL (14) potassium 4.7 mmol/ L 3.5-5. 2 normal Not Available [facility] ([facility]) [address] [facility] [place], [address], 01/18/2025 06:07:30 01/18/20 25 01/18/2025 COMP. METAB OLIC PANEL (14) chloride 103 mmol/ L 96-106 normal Not Available [facility] ([facility]) [address] [facility] [place], [address], 01/18/2025 06:07:30 01/18/20 25 01/18/2025 COMP. METAB OLIC PANEL (14) carbon dioxide, total 20 mmol/ L 20-29 normal Not Available [facility] ([facility]) [address] [facility] [place], [address], 01/18/2025 06:07:30 01/18/20 25 01/18/2025 COMP. METAB OLIC PANEL (14) calcium 9.8 mg/dL 8.7-10 .3 normal Not Available [facility] ([facility]) [address] [facility] [place], [address], 01/18/2025 06:07:30 01/18/20 25 01/18/2025 COMP. METAB OLIC PANEL (14) protein, total 7.1 g/dL 6.0-8. 5 normal Not Available [facility] ([facility]) [address] [facility] [place], [address], 01/18/2025 06:07:30 01/18/20 25 01/18/2025 COMP. METAB OLIC PANEL (14) albumin 4.7 g/dL 3.8-4. 8 normal Not Available [facility] ([facility]) [address] [facility] [place], [address], 01/18/2025 06:07:30 01/18/20 25 01/18/2025 COMP. METAB OLIC PANEL (14) globulin, total 2.4 g/dL 1.5-4. 5 Not Available [facility] ([facility]) [address] [place], [address], 01/18/2025 06:07:30 01/18/20 25 01/18/2025 COMP. METAB OLIC PANEL (14) bilirubin, total 0.2 mg/dL 0.0-1. 2 normal Not Available [facility] ([facility]) [address] [facility] [place], [address], 01/18/2025 06:07:30 01/18/20 25 01/18/2025 COMP. METAB OLIC PANEL (14) alkaline phosphatase 96 IU/L 44-121 normal Not Available [facility] ([facility]) [address] [place], [address], 01/18/2025 06:07:30 01/18/20 25 01/18/2025 COMP. METAB OLIC PANEL (14) AST (SGOT) 17 IU/L 0-40 normal Not Available [facility] ([facility]) [address] [place], [address], 01/18/2025 06:07:30 01/18/20 25 01/18/2025 COMP. METAB OLIC PANEL (14) ALT (SGPT) 9 IU/L 0-32 normal Not Available [facility] ([facility]) [address] [place], [address], 01/18/2025 06:07:30 01/18/20 25 01/17/2025 PT AND [...] range 2.5 - 3.5 Not Available [facility] ([facility]) [address] [place], [address], 01/18/2025 06:07:30 01/18/20 25 01/17/2025 PT AND PTT prothrombin time 10.5 sec 9.1-12 .0 normal Not Available [facility] ([facility]) [address] [place], [address], 01/18/2025 06:07:30 01/18/20 25 01/17/2025 PT AND [...] , refer to the [facility] t[facility] of Kieran walters. Not Available [facility] ([facility]) [address] [facility], [place], [address], 01/18/2025 06:07:30 04/02/2004/03/2025 TROY TIN ferritin 221 NG/mL 8-252 Not Available [facility] U/S Dept [address] [place] [address], [place], [address], 04/04/2025 12:34:23 04/02/2004/03/2025 TROY TIN note See Report [facility], [address], Jude p[place] d, [facility] [place] [address] Not Available [facility]/S Dept [address] [place], [place] [address]y, [place], [address], 04/04/2025 12:34:23 04/02/20 25 04/03/2025 IRON iron 11 mcg/d L 40-150 low Not Available [facility]/S Dept [address] [place] [address], [place], [address], 04/04/2025 12:57:42 04/02/2004/03/2025 IRON note See Report low [facility], [address], [place], [place] [address] Not Available [facility]/S Dept [address] [place], [place] [address]y[facility] [place], [address], 04/04/2025 12:57:42 04/02/20 25 04/05/2025 URINA LYSIS WITH REFLE X MICRO SCOPI C AND CULTU RE specific gravity urine 1.013 1.003- 1.030 Not Available [facility]/S Dept [address] [place] [address] Pkwy, [place], [address], 04/05/2025 13:33:39 04/02/2004/05/2025 URINA LYSIS WITH REFLE X MICRO SCOPI C AND CULTU RE pH, urine 6.5 pH 5.0-8. 0 Not Available [address], [place], [address], 04/05/2025 13:33:39 04/02/20 25 04/05/2025 URINA LYSIS WITH REFLE X MICRO SCOPI C AND CULTU RE leukocytes, urine Trace negati ve abnormal Not Available [address], [place], [address], 04/05/2025 13:33:39 04/02/20 25 04/05/2025 URINA LYSIS WITH REFLE X MICRO SCOPI C AND CULTU RE nitrite, urine Negati ve negati ve Not Available [facility] [address] [place] [address] Pkwy, [place], [address], 04/05/2025 13:33:39 04/02/20 25 04/05/2025 URINA LYSIS WITH REFLE X MICRO SCOPI C AND CULTU RE protein, urine Trace mg/dL <=trac e Not Available [address], [place], [address], 04/05/2025 13:33:39 04/02/20 25 04/05/2025 URINA LYSIS WITH REFLE X MICRO SCOPI C AND CULTU RE glucose, urine Negati ve mg/dL negati ve Not Available [facility] [address] [place] [address] Pkwy, [place], [address], 04/05/2025 13:33:39 04/02/20 25 04/05/2025 URINA LYSIS WITH REFLE X MICRO SCOPI C AND CULTU RE ketones, urine Negati ve mg/dL negati ve Not Available [facility]/S Dept [address] [place] [address] Pkwy, [place], [address], 04/05/2025 13:33:39 04/02/2004/05/2025 URINA LYSIS WITH REFLE X MICRO SCOPI C AND CULTU RE urobilinogen , urine 0.2 mg/dL 0.2-1. 0 Not Available [facility] [address] [place] [address] Pkwy, [place], [address], 04/05/2025 13:33:39 04/02/2004/05/2025 URINA LYSIS WITH REFLE X MICRO SCOPI C AND CULTU RE bilirubin, urine Negati ve negati ve Not Available [facility] [address] [place] [address] Pkwy, [place], [address], 04/05/2025 13:33:39 04/02/2004/05/2025 URINA LYSIS WITH REFLE X MICRO SCOPI C AND CULTU RE blood, urine Negati ve negati ve Not Available [facility] [address] [place] [address] Pkwy, [place], [address], 04/05/2025 13:33:39 04/02/20 25 04/05/2025 URINA LYSIS WITH REFLE X MICRO SCOPI C AND CULTU RE RBC, urine 2.0 /hpf 0-4 Not Available [facility] [address] [place] [address] Pkwy [place], [address], 04/05/2025 13:33:39 04/02/2004/05/2025 URINA LYSIS WITH REFLE X MICRO SCOPI C AND CULTU RE WBC, urine 1.1 /hpf 0-4 Not Available [facility] [address] [place] [address] Pkwy [place], [address], 04/05/2025 13:33:39 04/02/20 25 04/05/2025 URINA LYSIS WITH REFLE X MICRO SCOPI C AND CULTU RE squamous epithelial, urine 10 /lpf 0-60 Not Available [facility]/S Dept [address] [place] [address], [address], 04/05/2025 13:33:39 04/02/20 25 04/05/2025 URINA LYSIS WITH REFLE X MICRO SCOPI C AND CULTU RE bacteria, urine Negati ve /hpf negati ve Not Available [facility]/S Dept [address] [place] [address], [address], 04/05/2025 13:33:39 04/02/20 25 04/05/2025 URINA LYSIS WITH REFLE X MICRO SCOPI C AND CULTU RE hyaline casts, urine 0.0 /lpf 0-3 Not Available [facility]/S Dept [address] [place] [address], [address], 04/05/2025 13:33:39 04/02/20 25 04/05/2025 URINA LYSIS WITH REFLE X MICRO SCOPI C AND CULTU RE note See Report [facility], [address], [place] [address] Not Available [facility]/S Dept [address] [place] [address], [address], 04/05/2025 13:33:39 04/02/2004/02/2025 CULTU RE URINE .note See Note Origi nal Order ing Provi effie: TAURUS STEVENS [facility] - [address], [place] [address] Not Available [facility]/S Dept [address] [place] [address], [address], 04/06/2025 07:27:12 04/02/20 25 04/05/2025 CULTU RE URINE culture, urine No growth Not Available [facility] U/S Dept [address], [place], [address], 04/06/2025 07:27:12 04/17/20 24 2024 XR, hip + pelvi s, unila teral No observ ation record ed. [facility] (Medical Records) [address] [place], [address], 2024 15:49:57 04/18/2004/18/2024 XR, hip, unila teral No observ ation record ed. [facility] (Medical Records) [address] [place], [address], 04/18/2024 09:20:48 04/19/2004/19/2024 XR, pelvi s No observ ation record ed. [facility] (Medical Records) [address] [place], [address], 04/20/2024 10:54:01 07/29/19 25 07/26/2024 US, duple x, venou s, extre mity, compl ete No observ ation record ed. [facility] [address] [facility] [address], [place], [address], 07/29/2024 09:27:26 10/11/1910/10/2024 XR, chest , 2 view Chest 2 [...] surger y. IMPRES BLANE: Normal chest. WSN: [id number] Orderi ng Physic meghna: Kurtis Booker Dictat ed By: Rory Bhatti MD Dictat ed Date/T nataliya: 5:04 pm Review ed By: Davy KAY, Rory dale Signed By: Rory Bhatti MD Signed Date/T nataliya: 5:04 pm Transc ribed By: CSB Transc ribed Date/T nataliya: 5:02 pm Patien t Class: Outpat ient [email or web address] [facility] (Outpt Imaging) [address], [place], [address], 10/10/2024 19:54:30 10/11/19 25 10/10/2024 imagi ng/di agnos tic resul t No observ ation record ed. [facility] [address], [place], [address], 10/11/2024 10:44:14 11/21/19 25 11/19/2024 US, duple x, arter ial, lower extre mity, compl ete No observ ation record ed. [facility] [address], [place], [address], 11/20/2024 09:02:12 01/18/20 25 01/17/2025 elect rocar diogr am No observ ation record ed. [email or web address] In-Office Order Internal Use Only DO Not Attach Compendium DO Not Attach Compendium, Do Not Delete/merge, 01/17/2025 12:38:10 01/18/20 elect rocar diogr am No observ ation record ed. [email or web address] In-Office Order Internal Use Only DO Not Attach Compendium DO Not Attach Compendium, Do Not Delete/merge, 01/17/2025 11:04:37 03/23/20 25 03/21/2025 MAMMO , scree lisa, digit al, bilat eral PROCED URE: MM Digita l Mammo Screen ing INDICA TION: Screen ing for breast cancer . COMPAR LISA: 2008. No other prior examin ations are availa ble at the time of interp retati on. TECHNI QUE: Full-f ield digita l bilate ral CC and MLO 3D tomosy nthesi s. Comput er-aid ed detect ion (CAD) was utiliz ed in the interp retati on of this study. DENSIT Y: There are scatte red areas of fibrog landul ar densit y. FINDIN GS: No suspic ious masses , microc alcifi cation s, areas of earnest ectura l distor tion, or skin thicke lisa to sugges t malign arnold. IMPRES BLANE: No mammog raphic eviden ce of malign arnold. RECOMM ENDATI ON: Annual mammog raphic screen ing. BI-RAD S: 1 (Negat jose) Lay letter mailed to matilde rubio WSN: [id number] Orderi ng Physic meghna: Maggy Quinn Dictat ed By: Maksim Horton MD Dictat ed Date/T nataliya: 5:33 pm Review ed By: Maksim Horton MD Signed By: Maksim Horton MD Signed Date/T nataliya: 5:33 pm Transc ribed By: KAN Transc riptio n Date/T nataliya: 5:31 pm Birads : Matilde t Class: Outpat ient [email or web address] [facility] (Outpt Imaging) [address] [place] [address], [address], 03/25/2025 15:47:16 Result Notes Documentation Provider Name and Address [...] upper quadrant surgery. IMPRESSION: Normal chest. WSN: [id number] Ordering Physician: Ilda Booker Dictated By: Anatoliy Bhatti MD Dictated Date/Time: 10/10/24 5:04 pm Reviewed By: Anatoliy Bhatti MD Signed By: Anatoliy Bhatti MD Signed Date/Time: 10/10/24 5:04 pm Transcribed By: KAN Transcribed Date/Time: 10/10/24 5:02 pm Patient Class: Outpatient Ilda [facility] [address], [address], [facility] 10/10/2024 19:54:30 Mammo, Screening, Digital, Bilateral : PROCEDURE: MM Digital Mammo Screening INDICATION: Screening [...] (Negative) Lay letter mailed to patient WSN: [id number] Ordering Physician: Maggy Floyd Dictated By: Zay Moreno MD Dictated Date/Time: 03/23/25 5:33 pm Reviewed By: Zay Moreno MD Signed By: Zay Moreno MD Signed Date/Time: 03/23/25 5:33 pm Transcribed By: KAN Hand Worker Date/Time: 03/23/25 5:31 pm Birads: [facility] Class: [facility] 03/25/2025 15:47:16 Problems Name Problem SNOMED Code Status Onset Date Resolution Date Notes Provider Name and Address Organization Details Recorded Time Mass of body structur e 296527190 Completed 10/10/2014 Maggy kohli MD [address] [facility] [address], [place], [address], [facility] 6 06:40:11 Carpal tunnel syndrome 89804280 Active Maggy kohil MD [address] [facility] [address], [place], [address], [facility] 6 06:40:10 Spinal stenosis of lumbar region 84815075 Active [facility] Dr [facility] Referred to Dr Raza because she failed conserva tive treatmen t. Had surgery in [place] by Dr Staci kohli MD [address] [facility] [address], [place], [address], [facility] 8 10:15:37 Lumbar spondylo sis 560560666 Active Followed by Dr Sanjeev kohli MD [address] [facility] [address], [place], [address], [facility] 6 06:40:10 Osteoart hritis of knee 065988105 Active Followed by Dr Sanjeev kohli MD [address] 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 [address], [place], [address], [facility] 6 06:40:10 Scoliosi s of lumbar spine 025282061 Active Followed by Dr Sanjeev kohli MD [address] [facility] [address], [place], [address], [facility] 6 06:40:10 Pes anserinu s bursitis 59071868 Active Followed by Dr Sanjeev kohli MD [address] [facility] [address], [place], [address], [facility] 6 06:40:10 Degenera tion of lumbar interver tebral disc 89796378 Active Followed by Dr Sanjeev kohli MD [address], [facility] [place], [address], [facility] 6 06:40:10 Osteopen ia 543574032 Active Maggy kohli MD [address], [facility] [place], [address], [facility] 6 17:42:58 Primary malignan t neoplasm of kidney 27448342 Active 2005 Maggy kohli MD [address], [facility] [place], [address], [facility] 1 10:56:21 Dizzines s and giddines s 071748284 Completed 200702/04/2014 RESOLVED DATE: 11/05/19 08; RECORDED 11/05/19 08 5:56PM BY MAGGY CHANDRA MD, ANNOTATI ON/ADDEN DUM Maggy kohli MD [address] [facility] [address], [facility] [place], [address], [facility] 6 06:40:11 Dysuria 42432479 Completed 200702/04/2014 RESOLVED DATE: 11/05/19 08; RECORDED 11/05/19 08 5:56PM BY MAGGY CHANDRA MD, ANNOTATI ON/ADDEN DUM Maggy kohli MD [address], [place], [address], [facility] 6 06:40:11 General examinat ion of patient Completed 200702/04/2014 RECORDED 11/05/19 08 5:57PM BY MAGGY CHANDRA MD, ANNOTATI ON/ADDEN DUM Maggy kohli MD [address], [facility] [place], [address], [facility] 6 06:40:11 Sign or symptom of the urinary system 26801846 Completed 200702/04/2014 RESOLVED DATE: 11/05/19 08; KULWINDER ON: D/C DETROL SAMPLES OF ENABLEX FOR TRIAL; RECORDED 11/05/19 08 5:56PM BY MAGGY CHANDRA MD, MERRITTATI ON/ DUM Maggy kohli MD [address] [facility] [address], [facility] [place], [address], [facility] 6 06:40:11 Conjunct ival hemorrha ge 68518046 Completed 200702/04/2014 RESOLVED DATE: 11/05/19 08; RECORDED 11/05/19 08 5:56PM BY MAGGY CHANDRA MD, ANNOTATI ON/ Maggy kohli MD [address] [facility] [address], [facility] [place], [address], [facility] 6 06:40:10 Urinary tract infectio us disease 32177925 Completed 200702/04/2014 RESOLVED DATE: 11/05/19 08; RECORDED 11/05/19 08 5:57PM BY MAGGY CHANDRA MD, ANNOTATI ON/ Maggy kohli MD [address] [facility] [address], [facility] [place], [address], [facility] 6 06:40:11 Dizzines s and giddines s 084392740 Completed 200703/03/2014 RESOLVED DATE: 11/05/19 08; RECORDED 11/05/19 08 5:56PM BY MAGGY CHANDRA MD, MERRITTATI / Maggy kohli MD [address] [facility] [address], [facility] [place], [address], [facility] 6 06:40:11 Dysuria 11284724 Completed 200703/03/2014 RESOLVED DATE: 11/05/19 08; RECORDED 11/05/19 08 5:56PM BY MAGGY CHANDRA MD, ANNOTATI ON/ADD DUM Maggy kohli MD [address] [facility] [address], [facility] [place], [address], [facility] 6 06:40:11 General examinat ion of patient Completed 200703/03/2014 RECORDED 11/05/19 08 5:57PM BY MAGGY CHANDRA MD, ANNOTATI ON/ Maggy kohli MD [address] [facility] [address], [facility] [place], [address], [facility] 6 06:40:11 Sign or symptom of the urinary system 06697103 Completed 200703/03/2014 RESOLVED DATE: 11/05/19 08; IMPRESSI ON: D/C DETROL SAMPLES OF ENABLEX FOR TRIAL; RECORDED 11/05/19 08 5:56PM BY MAGGY CHANDRA MD, ANNOTATI ON/ Maggy kohli MD [address] [facility] [address], [facility] [place], [address], [facility] 6 06:40:11 Conjunct ival hemorrha ge 08672390 Completed 200703/03/2014 RESOLVED DATE: 11/05/19 08; RECORDED 11/05/19 08 5:56PM BY MAGGY CHANDRA MD, ANNOTATI ON/ Maggy kohli MD [address] [facility] [address], [facility] [place], [address], [facility] 6 06:40:10 Urinary tract infectio us disease 12924907 Completed 200703/03/2014 RESOLVED DATE: 11/05/19 08; RECORDED 11/05/19 08 5:57PM BY MAGGY CHANDRA MD, ANNOTATI ON/ Maggy kohli MD [address] [facility] [address], [facility] [place], [address], [facility] 6 06:40:11 Chest pain 71020844 Completed 201002/04/2014 DATE: 02/05/20 11; IMPRESSI ON: L ANTERIOR CHEST WALL PAIN FOLLOWIN G PULLING INJURY WHILE WEEDING YESTERDA Y. SUSPECT STRAIN OF INTERCOS TALS, PT ELECTS FOR XRAY. REST, HEAT/ICE , NSAID DURING DAY AND NARCOTIC MED AT NIGHT PRN. WILL CONTACT PT WITH RESULT WHEN AVAIL.; RECORDED 05/16/20 12 9:09AM BY ARIANA CARRION MA, ISHA ON/FRANK kohli MD [address] [facility] [address], [facility] [place], [address], [facility] 6 06:40:11 Chest pain 89640824 Completed 201003/03/2014 DATE: 02/05/20 11; IMPRESSI ON: L ANTERIOR CHEST WALL PAIN FOLLOWIN G PULLING INJURY WHILE WEEDING YESTERDA Y. SUSPECT STRAIN OF INTERCOS TALS, PT ELECTS FOR XRAY. REST, HEAT/ICE , NSAID DURING DAY AND NARCOTIC MED AT NIGHT PRN. WILL CONTACT PT WITH RESULT WHEN AVAIL.; RECORDED 05/16/20 12 9:09AM BY ARIANA CARRION MA, ISHA ON/FRANK kohli MD [address] [facility] [address], [facility] [place], [address], [facility] 6 06:40:11 Abdomina l pain 89625210 Completed 201102/04/2014 RECORDED 05/16/20 12 9:09AM BY ARIANA CARRION MA, ISHA ON/ELLIE Ma [address] [facility] [address], [facility] [place], [address], [facility] 2 09:55:02 Screenin g for malignan t neoplasm of breast Completed 201102/04/2014 RECORDED 05/16/20 12 9:09AM BY ARIANA CARRION MA, ISHA ON/FRANK kohli MD [address], [place], [address], [facility] 6 06:40:11 Screenin g for malignan t neoplasm of cervix Completed 201102/04/2014 RECORDED 05/16/20 12 9:09AM BY ARIANA CARRION MA, ANNOTMYCHAL ON/FRANK kohli MD [address], [place], [address], [facility] 6 06:40:11 Degenera tion of interver tebral disc Completed 201102/04/2014 RECORDED 05/16/20 12 9:09AM BY ARIANA CARRION MA, ANNOTATI ON/FRANK kohli MD [address] [facility] [address], [place], [address], [facility] 6 06:40:11 Dysphagi a [id number] Completed 201102/04/2014 RECORDED 05/16/20 12 9:09AM BY ARIANA CARRION MA, ISHA ON/FRANK kohli MD [address] [facility] [address], [place], [address], [facility] 6 06:40:11 Pain of joint of hand 849623092 Completed 201102/04/2014 RECORDED 05/16/20 12 9:09AM BY ARIANA CARRION MA, ISHA ON/FRANK kohli MD [address], [place], [address], [facility] 6 06:40:11 Knee pain Completed 201102/04/2014 RECORDED 05/16/20 12 9:09AM BY ARIANA CARRION MA, ISHA ON/FRANK kohli MD [address] [facility] [address], [place], [address], [facility] 6 06:40:11 Joint pain in ankle and foot Completed 201102/04/2014 RECORDED 05/16/20 12 9:09AM BY ARIANA CARRION MA, ANNOTATI ON/ADDEN DUM Maggy kohli MD [address] [facility] [address], [place], [address], [facility] 6 06:40:11 Screenin g for malignan t neoplasm of colon Completed 201102/04/2014 RECORDED 05/16/20 12 9:09AM BY ARIANA CARRION MA, ISHA ON/ADDEN WAQAS kohli MD [address] [place] [address], [place], [address], [facility] 6 06:40:11 Urge incontin ence of urine 81905641 Completed 201102/04/2014 RECORDED 05/16/20 12 9:09AM BY ARIANA CARRION MA, ANNOTATI ON/ADDEN WAQAS kohli MD [address] [address], [place], [address], [facility] 6 06:40:11 Abdomina l pain 52331535 Completed 201103/03/2014 RECORDED 05/16/20 12 9:09AM BY ARIANA CARRION MA, MERRITTATI ON/ADDEN DUM ELLIE Martinez [address] [facility] [address], [place], [address], [facility] 2 09:55:02 Screenin g for malignan t neoplasm of breast Completed 201103/03/2014 RECORDED 05/16/20 12 9:09AM BY ARIANA CARRION MA, ISHA ON/ADDEN WAQAS kohli MD [address] [address], [place], [address], [facility] 6 06:40:11 Screenin g for malignan t neoplasm of cervix Completed 201103/03/2014 RECORDED 05/16/20 12 9:09AM BY ARIANA CARRION MA, ISHA ON/FRANK kohli MD [address], [place], [address], [facility] 6 06:40:11 Degenera tion of interver tebral disc Completed 201103/03/2014 RECORDED 05/16/20 12 9:09AM BY ARIANA CARRION MA, ISHA ON/FRANK kohli MD [address], [place], [address], [facility] 6 06:40:11 Dysphagi a 22343892 Completed 201103/03/2014 RECORDED 05/16/20 12 9:09AM BY ARIANA CARRION MA, ISHA ON/FRANK kohli MD [address], [place], [address], [facility] 6 06:40:11 Pain of joint of hand 775043655 Completed 201103/03/2014 RECORDED 05/16/20 12 9:09AM BY ARIANA CARRION MA, ISHA ON/FRANK kohli MD [address], [place], [address], [facility] 6 06:40:11 Knee pain Completed 201103/03/2014 RECORDED 05/16/20 12 9:09AM BY ARIANA CARRION MA, ISHA ON/FRANK kohli MD [address], [place], [address], [facility] 6 06:40:11 Joint pain in ankle and foot Completed 201103/03/2014 RECORDED 05/16/20 12 9:09AM BY ARIANA CARRION MA, ISHA ON/FRANK kohli MD [address] [facility] [address], [place], [address], [facility] 6 06:40:11 Screenin g for malignan t neoplasm of colon Completed 201103/03/2014 RECORDED 05/16/20 12 9:09AM BY ARIANA CARRION MA, ISHA ON/FRANK kohli MD [address] [place] [address], [place], [address], [facility] 6 06:40:11 Urge incontin ence of urine 85366606 Completed 201103/03/2014 RECORDED 05/16/20 12 9:09AM BY ARIANA CARRION MA, ISHA ON/FRANK kohli MD [address] [address], [place], [address], [facility] 6 06:40:11 Dermatop hytosis of the body Completed 201102/04/2014 RECORDED 07/20/20 12 11:31AM BY TIA WILEY MA, ISHA BARFIELD/FRANK kohli MD [address] [address], [place], [address], [facility] 6 06:40:10 Dermatop hytosis of the body Completed 201103/03/2014 RECORDED 07/20/20 12 11:31AM BY TIA WILEY MA, ISHA BARFIELD/FRANK kohli MD [address] [address], [place], [address], [facility] 6 06:40:10 Lipoma of skin and subcutan eous tissue of face 14101957 Completed 201202/04/2014 RECORDED 08/01/19 13 9:48AM BY MAGGY CHANDRA MD, ISHA ON/FRANK kohli MD [address] [facility] [address], [facility] [place], [address], [facility] 6 06:40:10 Benign paroxysm al position al vertigo 537385553 Completed 201202/04/2014 IMPRESSI ON: SHE WILL TRY EXERCISE S AND IF THE VERTIGO PERSISTS SHE WILL CALL AND WE WILL DO A REFERRAL TO [facility].; RECORDED 08/01/19 13 9:48AM BY MAGGY CHANDRA MD, ISHA ON/FRANK kohli MD [address] [place] [address], [facility] [place], [address], [facility] 6 06:40:10 Depressi ve disorder 65638817 Completed 201202/04/2014 RECORDED 08/09/19 13 4:37PM BY MOOKIE YOU MA, ISHA ON/FRANK kohli MD [address] [address], [place], [address], [facility] 6 06:40:10 Depressi ve disorder 70631789 Completed 201203/03/2014 RECORDED 08/09/19 13 4:37PM BY MOOKIE YOU MA, ISHA ON/FRANK kohli MD [address] [address], [place], [address], [facility] 6 06:40:10 Adult health examinat ion Completed 201202/04/2014 RECORDED 11/23/19 13 1:10PM BY ISHA GARY ON/FRANK kohli MD [address] [address], [place], [address], [facility] 6 06:40:11 Malaise and fatigue 217180817 Completed 201202/04/2014 RECORDED 11/23/19 13 1:10PM BY ISHA GARY ON/ADDEN DUM Mookie harris MA null, [facility] 8 08:50:10 Administ ration of diphther ia and tetanus vaccine Completed 201202/04/2014 RECORDED 11/23/19 13 1:10PM BY ISHA GARY ON/ADDEN DUM Maggy kohli MD [address] [facility] [address], [place], [phone], [facility] 6 06:40:11 Adult health examinat ion Completed 201203/03/2014 RECORDED 11/23/19 13 1:10PM BY ISHA GARY ON/ADDEN DUM Maggy kohli MD [address], [place], [phone], [facility] 6 06:40:11 Administ ration of diphther ia and tetanus vaccine Completed 201203/03/2014 RECORDED 11/23/19 13 1:10PM BY ISHA GARY ON/ADDEN DUM Maggy kohli MD [address] [facility] [address], [place] [place], [address], [facility] 6 06:40:11 Anxiety state 904808067 Active 2013 Mookie harris [place] null, [facility] 8 08:49:46 Patient status finding [id number] Completed 201307/01/2014 RECORDED 08/06/19 14 9:46AM BY KATTY JO I, OFFICE VISIT Maggy kohli MD [address] [facility], [place], [address], [facility] 6 06:40:11 Urinary bladder problem 276027584 Active 2013 Mookie harris MA null, [facility] 8 08:50:06 History of depressi on 894186907 Completed 201310/10/2014 RECORDED 08/06/19 14 9:43AM BY KATTY JO I, OFFICE VISIT Maggy kohli MD [address], [place], [address], [facility] 6 06:40:11 External hemorrho ids 43908210 Active 2013 Mookie harris MA null, [facility] 8 08:49:52 Adult health examinat ion Completed 201307/01/2014 RECORDED 08/06/19 14 10:23AM BY ESTUARDO FERNANDEZ, HISTORIC AL SUMMARY Maggy kohli MD [address], [place], [address], [facility] 6 06:40:11 Hypercho lesterol emia 53042717 Completed 201302/21/2017 RECORDED 08/06/19 14 9:43AM BY KATTY JO I, OFFICE VISIT Maggy kohli MD [address], [place], [address], [facility] 7 13:46:36 Kidney disease 20132591 Completed 201310/10/2014 RECORDED 08/06/19 14 9:43AM BY KATTY JO I, OFFICE VISIT Maggy kohli MD [address], [place], [address], [facility] 6 06:40:11 Postmeno pausal state 15854591 Active 2013 IMPRESSI ON: MANY OF HER SX (FATIGUE , HAIR CHANGES, SKIN DRYNESS, VAGINAL DRYNESS, COLD INTOLERA NCE) CAN BE RELATED TO MENOPAUS E. 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 8 08:50:03 Oophorec alec Active 2013 RIGHT Mookie harris MA santosh, [facility] 8 08:49:59 Osteopor osis 14952174 Active 2013 Mookie harris MA santosh, [facility] 8 08:50:38 History of clinical finding in subject 257764553 Completed 201307/01/2014 RECORDED 08/06/19 14 9:44AM BY KATTY JO I, OFFICE VISIT Maggy kohli MD [address], [place], [address] 6 06:40:11 Dyspnea 646404246 Completed 201302/04/2014 IMPRESSI ON: NO EVIDENCE FOR HEART OR LUNG DS. SHE WILL USE OTC LORATIDI NE IF HER SX WORSEN.; RECORDED 08/06/19 14 7:03AM BY KATTY JO I, ANNOTATI ON/ADDEN WAQAS frost [facility] 5 11:52:26 Suicide attempt Active 2013 Mookie harris MA santosh, [facility] 8 08:50:40 Dyspnea 586719645 Completed 201303/03/2014 IMPRESSI ON: NO EVIDENCE FOR HEART OR LUNG DS. SHE WILL USE OTC LORATIDI NE IF HER SX WORSEN.; RECORDED 08/06/19 14 7:03AM BY KATTY JO I, ANNOTATI ON/ADDEN WAQAS frost [facility] 5 11:52:26 Laborato ry procedur e performe d 106384516 Completed 201307/01/2014 RECORDED 09/13/19 14 11:38AM BY DRISS FERRER, LAB REQ Maggy kohli MD [address] [facility] [address], [place], [address], [facility] 6 06:40:11 Allergic rhinitis 51672481 Active 2013 SUZY Torres, [facility] 8 08:50:35 Elevated blood-pr essure reading without diagnosi s of hyperten blane 999542536 Active 2013 SUZY Torres, [facility] 8 08:50:30 Gastroes ophageal reflux disease 645804542 Active 2013 SUZY Torres, [facility] 8 08:49:49 Insomnia 502392501 Active 2013 SUZY Torres, [facility] 8 08:50:24 Migraine 19286985 Active 2013 SUZY Torres, [facility] 8 08:50:33 Generali zed osteoart hritis 201906582 Active [address] Sanjeev kohli MD [address] [facility] [address], [place], [address], [facility] 6 17:42:58 Tobacco user 708753024 Completed 201307/01/2014 RECORDED 02/05/20 14 9:01AM BY KATTY JO I, OFFICE VISIT Maggy kohli MD [address] [facility] [address], [place], [address], [facility] 6 06:40:10 Urinary incontin ence 208966326 Active 2013 SUZY Torres, [facility] 8 08:50:14 Anxiety state 795269981 Completed 201303/03/2014 RECORDED 02/05/20 14 7:08AM BY ISHA GARY ON/ADDEN DUM MookieSUZY Servin, [facility] 8 08:49:46 Patient status finding [id number] Completed 201303/03/2014 RECORDED 02/05/20 14 7:07AM BY MERRITT GARYATI ON/ADDEN WAQAS kohli MD [address], [place], [address], [facility] 6 06:40:11 Urinary bladder problem 163225651 Completed 201303/03/2014 RECORDED 02/05/20 14 7:08AM BY ISHA GARY ON/ADDEN DUM Mookie SUZY Goncalves, [facility] 8 08:50:06 History of depressi on 182181222 Completed 201303/03/2014 RECORDED 02/05/20 14 7:08AM BY ISHA GARY ON/ADDEN DUM Maggy kohli MD [address], [place], [address], [facility] 6 06:40:11 External hemorrho ids 57793915 Completed 201303/03/2014 RECORDED 02/05/20 14 7:07AM BY ISHA GARY ON/ADDEN DUM [facility] 8 08:49:52 Gastroes ophageal reflux disease 325299569 Completed 201303/03/2014 RECORDED 02/05/20 14 7:08AM BY ISHA GARY ON/ADDEN DUM SUZY Torres, [facility] 8 08:49:49 Hypercho lesterol emia 85376009 Completed 201303/03/2014 RECORDED 02/05/20 14 7:08AM BY ISHA GARY ON/FRANK kohli MD [address] [facility] [address] [address], [place], [address], [facility] 7 13:46:36 Kidney disease 23844081 Completed 201303/03/2014 RECORDED 02/05/20 14 7:08AM BY ISHA GARY ON/FRANK kohli MD [address] [facility] [address] [address], [place], [address], [facility] 6 06:40:11 Laborato ry procedur e performe d 553131533 Completed 201303/03/2014 RECORDED 02/05/20 14 7:07AM BY ISHA GARY ON/FRANK kohli MD [address] [facility] [address], [place], [address], [facility] 6 06:40:11 Lipoma of skin and subcutan eous tissue of face 24228338 Completed 201303/03/2014 RECORDED 02/05/20 14 7:07AM BY ISHA GARY ON/FRANK kohli MD [address] [facility] [address], [place], [address], [facility] 6 06:40:10 Postmeno pausal state 53881217 Completed 201303/03/2014 IMPRESSI ON: MANY OF HER SX (FATIGUE , HAIR CHANGES, SKIN DRYNESS, VAGINAL DRYNESS, COLD INTOLERA NCE) CAN BE RELATED TO MENOPAUS E. SHE IS WORKING WITH HER LICENSING SPECIALIST ON THIS.; RECORDED 02/05/20 14 7:07AM BY ISHA GARY ON/ADDEN DUM SUZY Torres, [facility] 8 08:50:03 Oophorec alec Completed 201303/03/2014 RIGHT; RECORDED 02/05/20 14 7:08AM BY KATTY JO I ANNOTATI ON/ADDEN DUM SUZY Torres, [facility] 8 08:49:59 Benign paroxysm al position al vertigo 177027790 Completed 201303/03/2014 IMPRESSI ON: SHE WILL TRY EXERCISE S AND IF THE VERTIGO PERSISTS SHE WILL CALL AND WE WILL DO A REFERRAL TO [facility].; RECORDED 02/05/20 14 7:07AM BY KATTY JO I ANNOTATI ON/ADDEN DUM Maggy kohli MD [address] [facility] [address], [place], [address], [facility] 6 06:40:10 Reduced libido 2317463 Active 2013 IMPRESSI ON: REFERRAL TO ENDO FOR FURTHER EVALUATI ON Mookie SUZY Goncalves, [facility] 8 08:50:42 Malaise and fatigue 401335651 Active 2013 IMPRESSI ON: THIS MAY BE RELATED TO HER DEPRESSI ON AND WELL TO HORMONAL CHANGES. WE WILL REFER HER TO ENDO FOR FURTHER EVALUATI ON AND POSSIBLE HORMONE REPLACEM ENT. SUZY Torres, [facility] 8 08:50:10 Pain in left lower limb 159457724 Active 2016 Seen by [facility]; started September 2016 Maggy kohli MD [address] [facility] [address], [place], [address], [facility] 7 21:02:07 Pain of shoulder region 84868879 Active 2016 Seen by [facility]; started September 2016 Maggy kohli MD [address], [place], [address], [facility] 7 21:02:34 Hyperlip idemia 70474939 Active 2016 Maggy kohli MD [address], [place], [address], [facility] 7 13:48:42 Pannicul itis 51154652 Active 2017 mes[address] ic[address] Repeat CT scan done September 2018 w/o change. Maggy kohli MD [address], [place], [address], [facility] 9 08:31:41 Solitary nodule of lung 595926103 Active 2018 RML; will repeat in 1 year given smoking hx. Maggy kohil MD [address], [place], [address], [facility] 9 08:33:06 Pain of left knee region 28016146804 4109 Active 2021 Followed by [facility]; injected . Maggy kohli MD [address], [place], [address], [facility] 2 16:16:44 Piriform is syndrome 245785227 Active 2021 [facility] [address] [facility] [address], [place], [address], [facility] 2 14:52:33 Pain of sacroili ac joint 230196849 Active 2021 [facility] [address], [place], [address], [facility] 2 14:53:26 Left lower quadrant pain 909016383 Active 2021 [facility] [address], [place], [address], [facility] 2 15:12:41 Abdomina l pain 42786657 Active 2021 RECORDED 05/16/20 12 9:09AM BY ARIANA CARRION MA, MERRITTATI ON/ADDEN DUM Nancie Dumont [facility] [address], [facility] [place], [address], [facility] 2 09:55:02 Lumbosac ral radiculi tis 48772962 Active [address] Best. Currentl y treated with meds. Also seen by [facility] and injected . Maggy kohli MD [address] [facility], [facility] [place], [address], [facility] 3 07:41:33 Pain of left thigh 06094742898 9105 Active 2023 Gerardo frost, [facility] 4 16:46:52 Pain of left hip joint 49099969561 9100 Active 2023 Seen by [facility] and hip replacem ent recommen ded. Maggy kohli MD [address] [facility] [facility] [address], [facility] [place], [address], [facility] 4 14:11:10 Fracture of neck of femur 1364634 Active 2023 Maggy kohli MD [address] [facility], [facility] [place], [address], [facility] 4 09:20:04 Dyspnea 435895728 Active 2024 IMPRESSI ON: NO EVIDENCE FOR HEART OR LUNG DS. SHE WILL USE OTC LORATIDI NE IF HER SX WORSEN.; RECORDED 08/06/19 14 7:03AM BY ISHA GARY ON/ADDEN DUM Krishan frost, [facility] 5 11:52:26 Vitamin D deficien cy 04144271 Active [address] [facility] 5 12:01:57 Fatigue 38550110 Active [address] [facility] 5 12:22:31 Problem Notes None recorded. Procedures Surgical History Date Name Laterality Status Provider Name and Address Organization Details Recorded Time 03/23 Most Recent Mammogram completed Daja Silva [facility] 5 15:47:03 03/23 Mammogram screening completed Daja Silva [facility] 5 15:46:21 04/19 revision of hip arthroplasty completed Stephanie Thakur [facility] 4 12:51:04 04/17 Total hip arthroplasty completed Stephanie Thakur [facility] 4 09:50:22 06/07 Advanced Care Planning completed Maggy Floyd MD [address] [facility], [place], [address] , [facility] 3 10:02:52 08/08 injection into lumbar epidural space completed Stephanie Thakur [facility] 3 11:19:32 02/28 arthroscopic knee operation completed Kareem wilkins MA [facility] 2 14:24:10 04/20 Date of Last Colonoscopy completed Janna Garcia [facility] 1 11:25:32 04/20 Colonoscopy completed April Fernandez [facility] 1 15:10:14 04/20 esophagogastroduodenoscopy completed Rina Fernandez [facility] 1 15:10:37 08/13 Six-Item Cognitive Test completed Juliana Ng MA [facility] 1 10:31:00 06/18 Mini-Cog Test completed Katty Mansfield [facility] 9 14:21:34 04/05 Mini-Cog Test completed Katty Mansfield [facility] 8 10:48:47 02/02 decompression of lumbar spine completed Mookie wilkins MA [facility] 2 14:14:37 12/20 Epidurography completed Tisha Ball [facility] 8 13:36:59 02/21 Fall Risk Assessment completed Katty Mansfield [facility] 7 13:20:20 02/21 Mini-Cog Test completed Katty Mansfield [facility] 7 13:20:30 01/02 Hydrocortisone acetate inj completed Katty Mansfield [facility] 7 11:46:08 10/09 Fall Risk Assessment completed Katty Mansfield [facility] 5 11:21:42 10/09 Mini-Cog Test completed Katty Mansfield [facility] 5 11:21:42 04/17 Cancer Surgery completed Katty Mansfield [facility] 8 10:38:08 07/24 Removal kidney open radical completed Kareem wilkins MA [facility] 8 10:02:10 12/22 Hysterectomy completed Katty Mansfield [facility] 8 10:38:08 07/24 Repair bladder defect completed Mookie wilkins MA [facility] 8 10:01:47 07/24 Breast Biopsy completed Katty Mansfield [facility] 5 11:21:42 02/22 Tubal Ligation completed Katty Mansfield [facility] 8 10:38:08 07/11 Appendectomy completed Katty aMnsfield [facility] 8 10:38:08 Removal of ovary(s) completed Jere wilkins MA [facility] 8 10:02:41 Imaging Results None recorded. Procedure Notes None recorded. Medical Equipment None Reported. Allergies Allergen ID Allergen Name Allergen Category Reaction Reaction Severity Criticality Documentation Date Start Date Code Code System Note Provider Name and Address Organization Details Recorded Time 71 Sporanox medicatio n anaphylax is Not available Not available 02/04/20142013 [address] [facility] 1 15:59:28 Medications Name Sig Start Date Stop Date Status Note LastModified by Organization Details LastModified Time fluoxetin e cap 20mgfluox etine hcl active Not Available Not Available No t Available omeprazol e 20 mg cpdr active Not Available Not Available Not Available bupropn hcl tab 300mg xlbupropi on hcl xl active Not Available Not Available No t Available omeprazol e cap 20mgomepr azole active Not Available Not Available Not Available zolpidem tab 5mgzolpid em tartrate active Not Available Not Available Not Available amoxicill in cap 500mgamox icillin active Not Available Not Available Not Available alendrona te sodium 70 mg tabs active Not Available Not Available Not Available bupropion hcl xl 300 mg tb24 active Not Available Not Available Not Available vesicare tab 5mgvesica re active Not Available Not Available Not Available fluoxetin e hcl 20 mg caps active Not Available Not Available Not Available vesicare 5 mg tabs active Not Available Not Available No t Available alendrona te tab 70mgalend ronate sodium active Not Available Not Available Not Available bupropion tab 150mg srbupropi on hcl sr active Not Available Not Available No t Available zolpidem tartrate 5 mg tabs active Not Available Not Available No t Available fluoxetin e 40 mg capsule TAKE [...] TAKE ONE TABLET BY MOUTH AT BEDTIME 2024 active Not Available Not [...] TAKE ONE TABLET BY MOUTH ONCE DAILY FOR BLADDER HYPERACT IVITY 2024 active Not Available Not Available Not [...] 08 2:16PM BY MAGGY CHANDRA MD, ANNOTATI ON/ADD DUM; Not Available Not Available Not Available [...] completed Not Available Not Available Not Available Eliazeem DVT-PE Treatment 30-Day Starter 5 mg (74 tablets) in dose pack 10/07 completed Not Available Not Available Not Available Vitals Date Recorded Body height Body mass index (BMI) Body weight Heart rate Oxygen saturation Oxygen saturation in Arterial blood by Pulse oximetry Body temperature Systolic And Diastolic Provider Name and Address Organization Details Last Updated DateTime 5 165.74 cm 26.4 kg/m2 58983.7 8 g 101 /min 96 % 96 % 97.7 [degF] 123/78 mm[Hg] John perez MA [facility] 5 11:17:40 Date Recorded Body height Body mass index (BMI) Body weight Heart rate Oxygen saturation Oxygen saturation in Arterial blood by Pulse oximetry Body temperature Systolic And Diastolic Provider Name and Address Organization Details Last Updated DateTime 5 165.74 cm 26.8 kg/m2 77382.9 6 g 85 /min 94 % 94 % 98.2 [degF] 135/76 mm[Hg] Heidy Simon MA [facility] 5 12:59:18 Date Recorded Body height Body mass index (BMI) Body weight Oxygen saturation Oxygen saturation in Arterial blood by Pulse oximetry Heart rate Body temperature Systolic And Diastolic Provider Name and Address Organization Details Last Updated DateTime 5 165.74 cm 26.8 kg/m2 99605.3 6 g 98 % 98 % 87 /min 98.1 [degF] 130/81 mm[Hg] Lucita Guzman MA [facility] 5 10:49:21 Date Recorded Body height Provider Name an d Address Organization Details Last Updated DateTime 05/09/2024 165.74 cm Betty Patterson LPN [facility] 05/09/2024 15:18:43 Social History Question Answer Notes LastModified by Organizat ion Details LastModified Time Tobacco Smoking Status Former Smoker Not Available [employer] 05/26/2020 03:36:40 Do You Have An Advance Directive? Yes Information not available 06/14/2022 Is Blood Transfusion Acceptable In An Emergency? Yes [id number] Information not available 05/26/2020 What Is Your Level Of Caffeine Consumption? Moderate 2 Cups Of Coffee Daily [id number] Information not available 05/26/2020 How Much Tobacco Do You Chew? None [id number] Information not available 05/26/2020 In The 14 [...] Type Of Diet Are You Following? REGULAR [id number] Information not available 05/26/2020 Which Illicit Or Recreational Drugs Have You Used? None [id number] Information not available 05/26/2020 When Did You Quit Smoking? 16+yearssin ji josekathy bsvianney Information not available 03/04/2021 Live Alone Or With Others? With Others Keturah Osorio) Information not available 06/14/2022 Do You Take Precautions To Prevent Distracted Driving? Yes Solutionary Information not available 02/21/2017 How Often Do You Need To Have Someone Help You When You Read Instructions, Pamphlets, Or Other Written Material From Your Doctor Or Pharmacy? Never Solutionary Information not available 02/21/2017 Have You Served In The ? No Solutionary Information not available 02/21/2017 Have You Or Anyone In Your Household Had Any Of The Following Symptoms In The Last 14 Days: Sore Throat, Cough, Chills, Body Aches For Unknown Reasons, Shortness Of Breath For Unknown Reasons, Loss Of Smell, Loss Of Taste, Fever At Or Greater Than 100 Degrees Fahrenheit? No Solutionary Information not available 02/17/2020 Are You Or Anyone In Your Household A Health Care Provider Or Emergency Responder? No Information not available 02/17/2020 To The Best Of Your Knowledge Have You Been In Close Proximity To Any Individual Who Tested Positive For COVID-19? No Information not available 02/17/2020 *AWV ONLY* Are [...] Gathering In The Last 10 Days? No [email or web address] Information not available 08/13/2020 Marital Status Informatio [...] Do You Use Protection During Sex? No [id number] Information not available 05/26/2020 Difficulty Reading? Yes Information not available 06/14/2022 Seat Belts Used Routinely Yes Information not available 06/14/2022 Are You Sexually Active? Yes [id number] Information not available 05/26/2020 Smoke Alarm In Home Yes Information not available 06/14/2022 At What Age Did You Start Smoking Tobacco? 16 Quit At 20 Information not available 04/12/2022 Are You Passively Exposed To Smoke? No Information not available 02/21/2017 How Much Tobacco Do You Smoke? 0.5 PPD [id number] Information not available 05/26/2020 Do You Use Sunscreen Routinely? No [id number] Information not available 05/26/2020 How Many Years Have You Smoked Tobacco? 4 [id number] Information not available 05/26/2020 Difficulty Watching TV? No Information not available 06/14/2022 Do You Have Difficulty Walking Or Climbing Stairs? No Information not available 06/14/2022 Sex: Unknown Functional Status Question Answer Note LastModified by Organizat ion Details LastModified Time Do you or have you ever used smokeless tobacco? Never used smokeless tobacco [id number] Information not available 05/26/2020 Are you currently employed? No retired [id number] Information not available 05/26/2020 Difficulty driving at night? Yes Information no t available 06/14/2022 Are you able to care for yourself independently? Yes [id number] Information not available 05/26/2020 Do you have difficulty dressing, bathing, grooming, or toileting? No Information not available 06/14/2022 Do you or have you ever used e-cigarettes or vape? Never used electronic cigarettes Information not available 06/14/2022 What is your exercise level? None [id number] Information not available 05/26/2020 Do you use any illicit or recreational drugs? No Information not available 06/14/2022 Do you or have you ever used any other forms of tobacco or nicotine? No Information not available 06/14/2022 What is your level of alcohol consumption? Occasional [id number] Information not available 05/26/2020 Are you able to walk independently without assistance or assistive devices? YESWOREST Information not available 06/14/2022 Do you have difficulty doing errands alone? 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 No Information no t available 06/14/2022 Family History Relationship Description Onset Age of this Age Resolved Age Notes LastModified by Organization Details LastModified Time Father Myocardial infarction 65 Not available 06/14 13:51:22 Father Harmful pattern of use of alcohol 65 [email or web address] Not available 03/24 11:38:15 Sister Atrial fibrillation 67 Not available 13:51:22 Brother Atrial fibrillation 69 Not available 13:51:22 Brother Malignant tumor of colon [email or web address] Not available 15:43:09 Mother Atrial fibrillation Not [...] of Last Colonoscopy 04/20/2021 Most Recent Mammogram 03/23/2025 Obstetrics History GPAL:G 0 P 0 0 0 0 Immunizations Vaccine Type Date Status Note Provider Nam e and Address Organization Details Recorded Time influenza, unspecified formulation 6 completed [facility]2017 14:02:35 pneumococcal, unspecified formulation 6 completed April frost [facility] 02/21/2017 14:02:55 Pneumococcal conjugate PCV 13 8 completed SUZY Tai [facility] 01/28/2022 09:18:25 Influenza, high-dose, trivalent, PF [address] [facility] 07/15/2021 11:33:10 Influenza, high-dose, trivalent, PF 9 completed Katty Mansfield null, [facility] 06/18/2019 14:18:04 zoster recombinant 0 completed SUZY Tai, [facility] 01/28/2022 09:18:25 Influenza, split virus, quadrivalent, preservative 0 completed SUZY Tai, [facility] 01/28/2022 09:18:25 COVID-19, mRNA, LNP-S, PF, 30 mcg/0.3 mL dose 1 [facility]04[facility] 11:34:30 COVID-19, mRNA, LNP-S, PF, 30 mcg/0.3 mL dose 1 completed SUZY [place], [facility] 03/04/2021 11:34:51 Influenza, split virus, quadrivalent, preservative 1 completed SUZY Avila, [facility] 07/15/2021 11:33:10 COVID-19, mRNA, LNP-S, PF, 30 mcg/0.3 mL dose 1 completed SUZY Vaughan, [facility] 06/07/2021 16:01:23 zoster live 2 completed SUZY Avila, [facility] 07/15/2021 11:33:10 COVID-19, mRNA, LNP-S, PF, 100 mcg/0.5mL dose or 50 mcg/0.25mL dose 2 completed SUZY Tai, [facility] 01/28/2022 09:18:25 pneumococcal polysaccharide PPV23 5 completed SUZY Tai, [facility] 01/28/2022 09:18:26 influenza, unspecified formulation 6 completed Tia Wiley MA null, [facility] 01/28/2022 09:18:26 Influenza, high-dose, quadrivalent, PF 2 completed Mookie Whitmore MA null, [facility] 12/01/2022 15:02:27 Td (adult), 2 Lf tetanus toxoid, preservative free, adsorbed 0 completed Not Available [facility] 02/04/2014 14:00:31 Tdap 3 completed Not Available [facility] 02/04/2014 14:00:31 Td (adult), 2 Lf tetanus toxoid, preservative free, adsorbed 3 completed Maggy Floyd MD [address], [address], [facility] 06/08/2023 08:17:29 Past Encounters Encounter ID Performer Location Encounter Start Date Encounter Closed Date Diagnosis/Indication Diagnosis SNOMED-CT Code Diagnosis ICD10 Code Diagnosis IMO Codes Diagnosis Note [id number] autoEComm erce [address] [facility] [facility] [place] [address] 09/19/2006 00:00:00 [id number] autoEComm erce [address] [facility],[address] [place] [address] 07/18/2006 00:00:00 [id number] autoEComm erce [address] [facility],[address] [facility] [place] [address] 06/29/2006 00:00:00 [id number] autoEComm erce [address] [facility] [place] [address] 05/05/2006 00:00:00 [id number] autoEComm erce [address] [facility],[address] [facility] [place] [address] 10/17/2006 00:00:00 [id number] autoEComm erce [address] [facility],[address] [facility] [place] [address] 11/20/2006 00:00:00 [id number] autoEComm erce [address] [place] [address] 12/05/2006 00:00:00 [id number] autoEComm erce [address] [facility] [address] [place] [address] 01/08/2007 00:00:00 [id number] autoEComm erce [address] [facility],[address] [place] [address] 02/07/2007 00:00:00 [id number] autoEComm erce [address] [facility] [address] [place] [address] 02/22/2007 00:00:00 [id number] autoEComm erce [address] [facility],[address] [place] [address] 09/04/2007 00:00:00 [id number] autoEComm erce [address] [facility] [place] [address] 10/19/2007 00:00:00 [id number] autoEComm erce [address] [facility] [place] [address] 11/05/2007 00:00:00 [id number] autoEComm erce [address] [facility] [place] [address] 10/30/2008 00:00:00 [id number] autoEComm erce [address] [facility] [place] [address] 09/01/2009 00:00:00 [id number] autoEComm erce [address] [facility] [place] [address] 09/21/2009 00:00:00 [id number] autoEComm erce [address] [facility] [place] [address] 07/27/2010 00:00:00 [id number] autoEComm erce [address] [facility] [address] [place] [address] 02/04/2011 00:00:00 [id number] autoEComm erce [address] [facility] [place] [address] 05/25/2011 00:00:00 [id number] autoEComm erce [address] [facility],[address] [place], [place] [address] 05/16/2012 00:00:00 [id number] autoEComm erce [address] [place], [place] [address] 08/01/2012 00:00:00 [id number] autoEComm erce [address] [facility] [place], [place] [address] 11/22/2012 00:00:00 [id number] autoEComm erce [address] [facility] [place] [address] 12/27/2012 00:00:00 [id number] autoEComm erce [address] [facility] [place] [address] 08/06/2013 00:00:00 [id number] autoEComm erce [address] [facility] [place] [address] 02/04/2014 00:00:00 [id number] Maggy Floyd MD Main Office [address] [address] [place] [address] 07/01/2014 10:16:40 07/01/2014 10:47:00 Mass of body structure 093977677 mass at lower left back which appears to be a cyst. [id number] Maggy Floyd MD Main Office [address] [address] [place] [address] 10/09/2014 10:46:17 10/09/2014 11:53:11 Adult health examination 590505100 Menopause present 100854710 Administra tion of pneumococcal vaccine 23207640 Allergic rhinitis 00976014 Hypercholesterolemia 63600034 Varicella vaccination 33105861 [id number] Maggy Floyd MD Main Office [address] [address] [place] [address] 01/13/2016 15:38:45 01/13/2016 16:27:38 Generalized osteoarthritis 819675768 M15.9 Osteopenia 311495995 M85 .80 we looked into boniva because it is only once a month but it is not covered by her insurance. She will look at taking the fosomax at different times but will continue with it. She is also taking calcium and vitamin D. Gastroesop hageal reflux disease 681934862 K21.9 She is concerned about calcium absorption while taking prilosec so she will change to an OTC H2 belkis. [id number] Maggy Floyd MD Main Office [address] [address] [place] [address] 02/21/2017 12:53:36 02/21/2017 14:22:37 Adult health examination 751915572 Z00.00 Urinary incontinence 165 367726 R32 She will try an increased dose of vesicare and if her problem persists after one month she will make a urology appointmen t. Osteopenia 564958406 M85 .80 Taking fosomax and tolerating it well. She is also taking calcium and vitamin D. Gastroesop hageal reflux disease 187334064 K21.9 She was concerned about calcium absorption with a PPI but has continued it since she gets symptom relief. Insomnia 551187714 G47.0 0 Uses prn and it helps. Single austen or depressive episode 055706319 F32.9 Under control with meds. Hyperlipidemia 44838770 E78.5 Not on meds; check fasting level. Varicella vaccination 68 474103 Z23 Administra tion of pneumococcal vaccine 56593250 Z23 Screening for malignant neoplasm of breast 640146490 Z12.39 Hearing loss 94111752 H9 1.93 [id number] Maggy Floyd MD Main Office [address] [address] [place] [address] 09/27/2017 08:45:11 09/27/2017 09:49:54 Insomnia 081738794 G47.00 Uses prn and it helps. Degenerati on of lumbar intervertebral disc 58407148 M51.36 [id number] Maggy Floyd MD Main Office [address] [address] [place] [address] 12/04/2017 10:52:56 12/04/2017 11:59:03 Lymphadenopathy 14731514 R59.9 These are chronic and seen on imaging for more than 10 years. Small, benign and no further work-up is needed. [id number] ELLIE Martinez Main Office [address] [address] [place] [address] 01/25/2018 09:36:11 01/25/2018 10:36:45 Pre-surgery evaluation 385619735 Z01.818 According to Mcqueen stone-op risk assessment , patient has 0.36% risk of stone-op MO or cardiac arrest. EKG unchanged from 2010, no acute abnormalit y, labs and CXR are pending. No further work-up necessary, may proceed as scheduled. Urinary incontinence 165 583434 R32 Degenerati on of lumbar intervertebral disc 56310133 M51.36 having L4-L5 decompress ion and fusion 02/[address] Ephraim Rubalcava 22299540 R53.83 [id number] Maggy Floyd MD Main Office [address] [place] [address] 02/08/2018 09:48:24 02/08/2018 10:13:39 [id number] Maggy Floyd MD Main Office [address] [place] [address] 04/05/2018 10:33:16 04/05/2018 11:59:31 Adult health examination 440159946 Z00.00 Hyperlipidemia 17211208 E78.5 Not on meds; check fasting level. Spinal fernando nosis of lumbar region 48968075 M48.061 resolved with surgery Insomnia 125364555 G47.0 0 Uses prn ambien and it helps. [id number] Maggy Floyd MD Main Office [address] [place] [address] 09/14/2018 08:46:31 09/14/2018 09:21:14 Plantar fasciitis 848482771 M72.2 will refer to podiatry, take meloxicam once daily as directed with food. ice, elevate, wear fasciitis sleeve, supportive shoes, do not walk barefoot, continue exercises. [id number] Maggy Floyd MD Main Office [address] [address] [place] [address] 10/03/2018 10:09:39 10/03/2018 11:03:57 Hyperlipidemia 76870190 E78.5 Not on meds; check fasting level. Urinary incontinence 165 487600 R32 She would like to go down on her vesicare dose because of constipati on which started after increasing the dose. Major depr essive disorder 273955041 F32.9 She feels that this is no longer under good control so will increase her dose of fluoxetine . Osteophyte of bone 76092 57693 77333 M77.9 Bone spur at the left heel. Followed by podiatry. Panniculitis 16982551 M7 9.3 [id number] Maggy Floyd MD Main Office [address] [facility] [address] [place] [address] 06/18/2019 14:08:42 06/18/2019 15:10:03 Adult health examination 030077034 Z00.00 UTD with immunizati ons except due for an updated shingles vaccine. Had a colonoscop y done last year. Hyperlipidemia 49181166 E78.5 Not on meds; check fasting level. Osteoporosis 48001758 M8 1.0 Major depr essive disorder 475667573 F32.1 She feels that this is no longer under good control so will add wellbutrin to her regimen. Solitary n odule of lung 908691606 R91.1 [id number] [facility] MD [facility] [address] [facility] [address] [place] [address] 02/17/2020 13:26:01 02/17/2020 15:03:20 Insomnia 564070978 G47.00 Uses prn ambien and it helps. Major depr essive disorder 537231104 F32.1 She feels that this is no longer under good control so will add wellbutrin to her regimen. Urinary bl adder problem 422406881 N32.9 Anxiety state 941312465 F41.1 [id number] Maggy Floyd MD Main Office [address] [facility] [address] [place] [address] 08/13/2020 10:14:55 08/13/2020 11:20:20 Adult health examination 956355595 Z00.00 UTD with immunizati ons. Had one shingles shot and will be returning for her second one. Had a colonoscop y done in 2018 but because of a poor prep she was advised to repeat it in 1 year. She has not done so yet. Screening for malignant neoplasm of breast 042685649 Z12.39 Screening for malignant neoplasm of colon 154542461 Z12.11 Had a colonoscop y in 2018 but a repeat was recommende d because of poor prep. She will make her own appointmen t. Pain of mu ltiple joints 94163746 M25.50 Fhx of RA. Will do screening labs and refer to rheum. Hyperlipidemia 27587196 E78.5 Not on meds; check fasting level. Major depr essive disorder 544183359 F32.1 Doing well on prozac and wellbutrin . [id number] ELLIE [place] Main Office [address] [facility] 207 [facility] [place] [address] 03/04/2021 11:16:20 03/04/2021 11:55:55 Insomnia 745404320 G47.00 just filled zolpidem 03/03 with 2 refills. Anxiety state 374849077 F41.1 Single austen or depressive episode 311483417 F32.1 Feeling depressed, will increase fluoxetine to 40mg for now, she has been taking 30mg. F/u with PCP in 3 months for recheck. Fatigue 43646517 R53.83 will check labs Vitamin D deficiency 347 92159 E55.9 Low back pain 499471581 M54.5 s/p surgery 3 years ago. will check XR. [id number] Savannah monreal MD Main Office [address] [facility] 207 [place] [place] [address] 06/07/2021 15:21:32 06/07/2021 16:32:44 Pre-surgery evaluation 466843899 Z01.818 Patient is at low risk for cardiopulm onary complicati ons with planned procedure based on comorbidit ies, good exertional tolerance and overall procedure risk. Patient advised to avoid aspirin and NSAIDS for 7 days prior. May proceed to scheduled surgery as planned. Hold meds am of procedure Mcqueen 0.2% Cramp in lower limb 4499 59091 R25.2 try tonic water at night, labs today, stretching Abnormal urine odor 8769 003 R82.90 check urine Bilateral cataracts 9572 2004 H26.9 having surgery for this with progressiv e vision changes [id number] Maggy Floyd MD Main Office [address] [place] [address] 07/15/2021 11:23:35 07/15/2021 12:21:52 Increased frequency of urination 279691648 R35.0 Urine dip looks negative and last urine was also normal but she was treated with 5 days of bactrim. Will order another send out UA with reflex culture and will not treat until results are back. If she does not have a UTI and the symptoms persist we will do a urology referral for further evaluation . [id number] Jarad Bains MD [facility] [address] [place], [place] [address] 01/28/2022 08:30:44 01/28/2022 10:31:02 Pain of left knee joint 5969831090 19552 M25.562 [id number] Maggy Floyd MD Main Office [address] [place] [address] [place], [place] [address] 02/22/2022 09:55:47 02/22/2022 10:33:59 Pre-surgery evaluation 310219395 Z01.818 She is low-risk for surgery and cleared for her upcoming left knee surgery. Tear of me dial meniscus of knee 340969136 S83.242A Having repair of her left medial meniscus done 02/28/[address] Templeton. [id number] Maggy Floyd MD Main Office [address] [place], [place] [address] 04/12/2022 14:08:29 04/12/2022 14:57:50 Left lower quadrant pain 014447223 R10.32 will check labs and urine. History of nephrectomy 9887792503 9104 Z90.5 left, she has one kidney, has been taking nsaids and tylenol Piriformis syndrome 1291 35643 G57.02 Suspect piriformis syndrome causing LLQ and left SI joint pain, will check XRs, muscle relaxer and heat as needed. stretches as tolerated. Pain of sa croiliac joint 130944455 M53.3 Gastroesop hageal reflux disease 118998992 K21.9 tums not helping, GERD sx. will check labs. [id number] Maggy Floyd MD Main Office [address] [facility] [address] [place] [address] 06/14/2022 13:51:03 06/14/2022 14:37:46 Pain of left hip joint 4569779024 58151 M25.552 [id number] Manuel Beasley MD Main Office [address] [facility] [address] [place] [address] 12/01/2022 14:49:15 12/01/2022 15:57:04 Easy bruising 000809211 R58 not on AC or aspirin, will check labs for further evaluation advised pt to be more gentle when applying moisturizi ng lotion, avoid 'banging' into things, and to stay well hydrated [id number] Maggy Floyd MD Main Office [address] [facility] [address] [place] [address] 06/07/2023 09:18:08 06/07/2023 10:36:41 Adult health examination 702744985 Z00.00 UTD with immunizati ons including COVID [...] get another one. Advance care planning 71 3316289 Z71.89 Discussed HCP and MOLST forms. Requires a tetanus booster 074308647 Z23 Dyspnea on exertion 6084 5006 R06.09 [facility]. She has a remote smoking history but her peak flow in the office was 360 which is normal for her age, sex and height. Her EKG shows a prolonged QT. Will refer to cardiology for further evaluation . At [facility] ed risk for falls 800474337 Z91.81 She often feels unsteady on her feet. Hyperlipidemia 14408788 E78.5 Not on meds; check fasting level. [id number] Manuel Beasley MD Main Office [address] [facility] [address] [place] [address] 12/26/2023 14:33:48 12/26/2023 15:55:56 Pain of left thigh 3534662550 40647 M79.652 Presenting for chronic pain in the [...] t, will send referral for Orthopedic s. [id number] Manuel Beasley MD [facility] [address] [facility] [address] [place] [address] 01/08/2024 12:39:47 01/08/2024 13:44:12 Pain of left thigh 9181478275 42657 M79.652 Presenting for chronic pain in the [...] t for consult on this ongoing issue. [id number] Maggy Floyd MD Main Office [address] [address] [place] [address] 05/07/2024 08:11:45 05/07/2024 11:42:11 [id number] Maggy Floyd MD [place] [address] [place] [address] 05/09/2024 15:11:05 05/14/2024 08:58:23 Intertrochanteric fracture 245084509 S72.142A Followed by Dr Donato and has a f/u 05/31/24. Currently pain is controlled with oxycodone and tylenol. Receiving PT and OT. Not yet weight bearing. Osteoporosis 51054891 M8 1.0 Restart calcium Anemia 583786175 D64.9 Received 4 units PRBC's in the hospital. Will check to ensure bleeding has stopped. [id number] Maggy Floyd MD Main Office [address] [address] [place] [address] 10/07/2024 10:49:39 10/07/2024 12:08:34 Dyspnea 997645515 R06.00 Exertional SOB and fatigue for 3 weeks post-COVID infection. Lungs clear to auscultati on, no audible wheezing. Did not have symptoms of prior to COVID infection. We will order CBC (hx of anemia), CMP, and pro bnp. Vitamin D deficiency 347 42789 E55.9 Pt has hx of vitamin D deficiency and is not currently taking supplement s. Will check Vit D levels. Fatigue 31490778 R53.83 Increased fatigue 3 weeks post-COVID infection without significan t improvemen t. Will check TSH to r/o hypothyroi dism. 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 Provoked by surgery in March. Pt. has f/u with vascular in October. Will continue Eliquis as directed until then. [id number] Maggy Floyd MD Main Office [address] [facility] [address] [place] [address] 12/13/2024 12:44:14 12/13/2024 13:51:12 Adult health examination 152557477 Z00.00 UTD with immunizati ons including COVID [...] one. Screening for malignant neoplasm of breast 505320027 Z12.39 She will make her own appointmen t Pure hypercholesterolemia 938065180 E78.00 22128 Insomnia 269304122 G47.0 0 Uses prn ambien and it helps. Pain of le ft hip joint 5874277617 70017 M25.552 Severe austen or depression 612806213 F32.2 [id number] She is on meds that don't seem to be helping. Much of her depression is related to her chronic left hip and leg pain. We will treat that first and then address her depression again. [id number] Maggy Floyd MD Main Office [address] [facility] [address] [place] [address] 01/17/2025 10:39:12 01/17/2025 11:14:55 Preoperative state 03052045 Z01.818 [id number] No medical contraindi cations to proposed procedure. Richar Perioperat jose Cardiac Risk was calculated and the risk for perioperat jose MO is <1%. May proceed to surgery as planned. Pain of le ft hip joint 6293671648 48387 M25.552 pre-operat jose medical clearance for left total hip revision on 02/18/[address] Jj Donato ( ) of [facility] Under general anesthesia with a block Health Concerns Section Related Observation LastModified by Organization Detai ls LastModified Time None Recorded Concern Status LastModified by Organization Details LastModified Time None Recorded Advance Directives Directive Y: Payers Insurance Date Sequence Insurance Name Policy Number Policy Gallegos Covered Member ID Gallegos Member ID Guarantor Name 01/27/2025 2 [employer] Courtney S Jonnathan [id number] Courtney S Jonnathan 01/17/2025 1 MEDIC[place] [employer] Courtney S Jonnathan [id number] Courtney S Jonnathan Notes Date Note Type Note Provider Name and Address Organization Details Recorded Time 4 text/html Hospitalization Contact RecordReported by PatientHospitalization Contact RecordFor follow up, patient reportshospital: snf,admit date: (please enter in format 'mm/dd/yyyy') (04/24/2024),date of discharge: (please enter in format 'mm/dd/yyyy') (05/03/2024), anddate of contact: (please enter in format 'mm/dd/yyyy') ([facility]/07/2024[facility]Medicare covered inpatient stay? yesMedicare CONI with in 48 working hours? yesHigh Complexity code valid on or before:AprilModerate Complexity code valid on or before:AprilHCP on file? yesMOLST on file? noDischarge Summary available? yes 74 year old female [facility] for further medical management and re conditioning due to left hip fracture reconstruction. Patient is not weight bearing in wheel chair at this time. Patient to see ortho on 05/31/2024 will evaluate if able to bear weight at this time. During rehab stay was receiving PT, OT residential . Patient is on strict protocol due [...] pm with PCP. Maggy Floyd MD [address], [address], [facility] 05/07/2024 11:42:08 4 text/html Hospitalization Contact RecordReported by PatientHospitalization Contact RecordFor follow up, patient reportshospital: snf,admit date: (please enter in format 'mm/dd/yyyy') (04/24/2024),date of discharge: (please enter in format 'mm/dd/yyyy') (05/03/2024), anddate of contact: (please enter in format 'mm/dd/yyyy') (05/07/2024)([facility]).Medicare covered inpatient stay? yesMedicare CONI with in 48 working hours? yesHigh Complexity code valid on or before:AprilModerate Complexity code valid on or before:AprilHCP on file? yesMOLST on file? noDischarge Summary available? yes 74 year old female was admitted to [facility] on 04/24/2204 for further medical management and re conditioning due to left hip fracture reconstruction. Patient is not weight bearing in wheel chair at this time. Patient to see ortho on 05/31/2024 will evaluate if able to bear weight at this time. During rehab stay was receiving PT, OT residential . Patient is on strict protocol due [...] at this time. She was admitted to [facility] for a routine left hip [...] tylenol for the pain. Maggy Floyd MD [address] [address], [place], [address], [facility] 05/10/2024 09:07:39 5 text/html FatigueReported by Patient 74 y/o female presents with 3 weeks [...] not been taking omeprazole. Ilda Booker PA-C [address] [address], [place], [address], [facility] 10/07/2024 13:14:57 5 text/html Medicare Annual Wellness VisitReported by PatientSocial/Behavioral HistoryFor fracture risk, patient reportsprevious musculoskeletal injuries (left shoulder)but reportsno history of fractures(also with low back; seeing a chiropractor 3 times a week over the last 2 weeks. no change yet in back pain.). For physical activity, patient reportsdoes not exercise on a regular basis. For diet and nutrition, patient reportshealthy diet,discussed vitamin and supplement use, anddiscussed maintaining calcium balance.Mental Status:For depression risk, patient reportshistory of mood disordersandhistory of depressionbut reportsno loss of interest in activities,no agitation,no loss of energy (sometimes uses meds), andno thoughts of suicide. For orientation, patient reportsno disorientation to time,no disorientation to date, andno disorientation to place. For concentration and memory, patient reportsno decreased concentrating ability,no memory lapses or loss, anddoes not forget words. For speech/motor difficulties, patient reportsno speech difficultiesandno difficulty expressing formulated concepts.Functional AbilityFor falls risk assessment, patient reportsfrequent falls while walking (off balance when getting up from a seated position)but reportsno dizziness/vertigo. For hearing, patient reportsno loss of hearing. For vision, patient reportsno vision problems. For activities of daily living, patient reportsable to bathe with limited or no assistance,able to contol urination and bowels,able to dress with limited or no assistance,able to feed self with limited or no assistance,able to get out of chair or bed with limited or no assistance,able to groom with limited or no assistance, andable to toilet with limited or no assistance. For instrumental activities of daily living, patient reportsable to do house work with limited or no assistance,able to grocery shop with limited or no assistance,able to manage medications with limited or no assistance,able to manage money with limited or no assistance,able to prepare meals with limited or no assistance, andable to use the phone with limited or no assistance. Was having ADDISON but this has resolved. [...] opinion before proceeding. Maggy Floyd MD [address] [address], [place], [address], [facility] 12/14/2024 08:53:06 5 text/html ROS as noted in the HPI Courtney is a 74yr old F who presents for pre-operative medical clearance for left total hip revision on 02/18/[address] Jj Donato ( ) of [facility]. Under general anesthesia with a block. [...] palpitations, fever, chills, and nausea/vomiting. MAKEDA KULKARNI [address] [facility] [address], [place], [address], [facility] 01/17/2025 11:26:39 OBGyn Episode No OBEpisode recorded.
--- OUTSIDE RECORDS SUMMARY | 2025-04-17 18:29 | XMS_ITS | Clinical Summary ---
Author Organization [facility] Address [address] [place] [address] Phone Care Team Providers Care Retail Service Representative Name Role Phone Billy Floyd MD Primary Care Provider [phone] Allergies Active Allergy Reactions Criticality Noted Date [...] Team Description 04/07/2025 Plan of Care Documentation [facility] [address] [place] [address] 04/02/2025 5:37 PM EDT - 04/09/2025 12:20 PM EDT Hospital Encounter [facility] [address] [place] [address] Benita Borrero, Discharge Disposition: Home-Health Care c [...] series) 2024 Cholesterol Screening (Lipid Panel) 05/17/2024 Hepatitis C Screening 05/17/2024 Medicare Annual [...] microscopic and culture (04/05/2025 1:05 PM EDT) Specific [place] Urine 1.013 1.003 - 1.030 LAB URINALYSIS - AUTOMATED METHOD 04/05/2025 1:32 PM [facility] pH, Urine 6.5 5.0 - 8.0 pH LAB URINALYSIS - AUTOMATED METHOD 04/05/2025 1:32 PM [facility] Leukocytes, Urine Trace(A) Negative LAB URINALYSIS - AUTOMATED METHOD 04/05/2025 1:32 PM [facility] Nitrite, Urine Negative Negative LAB URINALYSIS - AUTOMATED METHOD 04/05/2025 1:32 PM [facility] Protein, Urine Trace <=Trace mg/dL LAB URINALYSIS - AUTOMATED METHOD 04/05/2025 1:32 PM [facility] Glucose, Urine Negative Negative mg/dL LAB URINALYSIS - AUTOMATED METHOD 04/05/2025 1:32 PM [facility] Ketones, Urine Negative Negative mg/dL LAB URINALYSIS - AUTOMATED METHOD 04/05/2025 1:32 PM [facility] Urobilinogen, Urine 0.2 0.2 - 1.0 mg/dL LAB URINALYSIS - AUTOMATED METHOD 04/05/2025 1:32 PM [facility] Bilirubin, Urine Negative Negative LAB URINALYSIS - AUTOMATED METHOD 04/05/2025 1:32 PM [facility] Blood, Urine Negative Negative LAB URINALYSIS - AUTOMATED METHOD 04/05/2025 1:32 PM [facility] RBC, Urine 2.0 0 - 4 /HPF LAB URINALYSIS - AUTOMATED METHOD 04/05/2025 1:32 PM EDT [facility] WBC, Urine 1.1 0 - 4 /HPF LAB URINALYSIS - AUTOMATED METHOD 04/05/2025 1:32 PM EDT [facility] Squamous Epithelial, Urine 10 0 - 60 /LPF LAB URINALYSIS - AUTOMATED METHOD 04/05/2025 1:32 PM EDT [facility] Bacteria, Urine Negative Negative /HPF LAB URINALYSIS - AUTOMATED METHOD 04/05/2025 1:32 PM EDT [facility] Hyaline Casts, Urine 0.0 0 - 3 /LPF LAB URINALYSIS - AUTOMATED METHOD 04/05/2025 1:32 PM EDT [facility] Urine Urine specimen obtained by clean catch procedure / Unknown Non-blood Collection / Unknown 04/05/2025 1:05 PM EDT 04/05/2025 1:12 PM EDT us Loraine ASHFORD LAB URINE ORDERABLES Final R esult Performing Organization Address City/[facility] [address]/ZIP Co de Phone Number [facility] [address] [place] [address], [place] [phone] * [facility] urine culture tube (04/05/2025 1:05 PM EDT) Extra Tube Hold for add-ons. 04/05/2025 3:01 PM EDT [facility] Comment:Auto resulted. Urine Urine specimen obtained by clean catch procedure / Unknown Non-blood Collection / Unknown 04/05/2025 1:05 PM EDT 04/05/2025 1:12 PM EDT us Loraine ASHFORD LAB URINE ORDERABLES Final R esult [facility] [address] [place] [address], [place] [phone] * Culture urine (04/05/2025 1:05 PM EDT) [facility] Culture, Urine No growth 04/06/2025 7:24 AM EDT [facility] Urine Urine specimen obtained by clean catch procedure / Unknown Non-blood Collection / Unknown 04/05/2025 1:05 PM EDT 04/05/2025 1:32 PM EDT us Loraine ASHFORD LAB MICROBIOLOGY - GENERAL O RDERABLES Final Result [facility] [address] [place] [address], [place] [phone] * (ABNORMAL) CBC auto differential (04/03/2025 5:18 AM EDT) [facility] WBC 11.6(H) 4.8 - 10.8 K/mcL LAB HEMETOLOGY METHOD 04/03/2025 5:46 AM EDT [facility] RBC 2.80(L) 3.80 - 4.80 M/mcL LAB HEMETOLOGY METHOD 04/03/2025 5:46 AM [facility] Hemoglobin 8.4(L) 11.5 - 16.0 g/dL LAB HEMETOLOGY METHOD 04/03/2025 5:46 AM [facility] Hematocrit 26.4(L) 35.0 - 47.0 % LAB HEMETOLOGY [facility]25 [facility] MCV 95.3 79.0 - 98.0 FL LAB HEMETOLOGY METHOD 04/03/2025 5:[facility] MCH 30.3 27.0 - 32.0 pcg LAB HEMETOLOGY METHOD 04/03/2025 5:46 AM [facility] MCHC 31.8(L) 32.0 - 37.0 g/dL LAB HEMETOLOGY METHOD 04/03/2025 5:46 AM [facility] RDW 14.1 11.0 - 15.0 % LAB HEMETOLOGY METHOD 04/03/2025 5:46 AM [facility] Platelets 201 130 - 400 K/mcL LAB HEMETOLOGY METHOD 04/03/2025 5:46 AM [facility] MPV 9.8 7.0 - 11.0 FL LAB HEMETOLOGY METHOD 04/03/2025 5:46 AM [facility] NRBC 0.0 <1.0 % LAB HEMETOLOGY METHOD 04/03/2025 5:46 AM [facility] NRBC Absolute 0.00 <0.10 K/mcL LAB HEMETOLOGY METHOD 04/03/2025 5:46 AM [facility] Neutrophils Relative 69.2 % LAB HEMETOLOGY METHOD 04/03/2025 5:46 AM [facility] Lymphocytes Relative 15.9 % LAB HEMETOLOGY METHOD 04/03/2025 5:46 AM [facility] Monocytes Relative 10.4 % LAB HEMETOLOGY METHOD 04/03/2025 5:46 AM [facility] Eosinophils Relative 3.6 % LAB HEMETOLOGY METHOD 04/03/2025 5:46 AM [facility] Basophils Relative 0.6 % LAB HEMETOLOGY METHOD 04/03/2025 5:46 AM [facility] Immature Granulocytes Relative 0.3 % LAB HEMETOLOGY METHOD 04/03/2025 5:46 AM [facility] Neutrophils Absolute 8.02(H) 1.50 - 7.00 K/mcL LAB HEMETOLOGY METHOD 04/03/2025 5:46 AM [facility] Lymphocytes Absolute 1.85 1.00 - 5.00 K/[facility] LAB HEMETOLOGY METHOD 04/03/2025 5:46 AM EDT [facility] Monocytes Absolute 1.21(H) 0.20 - 1.00 K/mcL LAB HEMETOLOGY METHOD 04/03/2025 5:46 AM EDT [facility] Eosinophils Absolute 0.42 0.00 - 0.50 K/[facility] LAB HEMETOLOGY METHOD 04/03/2025 5:46 AM EDT [facility] Basophils Absolute 0.07 0.00 - 0.20 K/[facility] LAB HEMETOLOGY METHOD 04/03/2025 5:46 AM EDT [facility] Immature Granulocytes Absolute 0.04(H) 0.00 - 0.03 K/[facility] LAB HEMETOLOGY METHOD 04/03/2025 5:46 AM EDT [facility] Blood Venous blood specimen / Unknown Venipuncture / Unknown 04/03/2025 5:18 AM EDT 04/03/2025 5:37 AM EDT us Krishan Shafer VENDOR SPECIALIST LAB BLOOD ORDERABLES Final Res ult Performing Organization Address City/[facility] [address]/ZIP Co de Phone Number [facility] [address] [place] [address], * (ABNORMAL) Iron (04/03/2025 5:18 AM EDT) Iron 11(L) 40 - 150 mcg/dL LAB CHEMISTRY METHOD 04/04/2025 12:56 PM EDT [facility] Blood Venous blood specimen / Unknown Venipuncture / Unknown 04/03/2025 5:18 AM EDT 04/03/2025 5:37 AM EDT us Loraine Urrutia PA LAB BLOOD ORDERABLES Final R esult [facility] [address] [place] [address], [place] [phone] * Ferritin (04/03/2025 5:18 AM EDT) [facility] Ferritin 221 8 - 252 ng/mL LAB CHEMISTRY METHOD 04/04/2025 12:33 PM EDT [facility] Blood Venous blood specimen / Unknown Venipuncture / Unknown 04/03/2025 5:18 AM EDT 04/03/2025 5:37 AM EDT Loraine ASHFORD LAB BLOOD ORDERABLES Final R esult [facility] [address] [place] [address], [place] [phone] * (ABNORMAL) Comprehensive metabolic panel (04/03/2025 5:18 AM EDT) [facility] Sodium 140 133 - 145 mmol/L LAB CHEMISTRY METHOD 04/03/2025 6:18 AM T [facility] Potassium 4.0 3.5 - 5.5 mmol/L LAB CHEMISTRY METHOD 04/03/2025 6:18 AM [facility] Chloride 107 96 - 110 mmol/L LAB CHEMISTRY METHOD 04/03/2025 6:18 AM [facility] CO2 29 21 - 32 mmol/L LAB CHEMISTRY METHOD 04/03/2025 6:18 AM [facility] Anion Gap 4 3 - 11 LAB CHEMISTRY METHOD 04/03/2025 6:18 AM [facility] Glucose 90 70 - 100 mg/dL LAB CHEMISTRY METHOD 04/03/2025 6:18 AM [facility] BUN 18 5 - 25 mg/dL LAB CHEMISTRY METHOD 04/03/2025 6:18 AM [facility] Creatinine 0.84 0.50 - 1.10 mg/dL LAB CHEMISTRY METHOD 04/03/2025 6:18 AM [facility] eGFR 73 >=60 mL/min/1. 73m2 LAB CHEMISTRY METHOD 04/03/2025 6:18 AM [facility] Comment:Calculation based on the Chronic Kidney Disease Epidemiology Collaboration (CKD-EPI) equation refit without adjustment for race. BUN/Creatinine Ratio 21.4 LAB CHEMISTRY METHOD 04/03/2025 6:18 AM [facility] Calcium 8.4(L) 8.5 - 10.5 mg/dL LAB CHEMISTRY METHOD 04/03/2025 6:18 AM [facility] AST (SGOT) 53(H) 10 - 42 unit/L LAB CHEMISTRY METHOD 04/03/2025 6:18 AM [facility] ALT (SGPT) 16 10 - 60 unit/L LAB CHEMISTRY METHOD 04/03/2025 6:18 AM [facility] Alkaline Phosphatase 68 42 - 121 unit/L LAB CHEMISTRY METHOD 04/03/2025 6:18 AM [facility] Total Protein 5.2(L) 6.0 - 8.0 g/dL LAB CHEMISTRY METHOD 04/03/2025 6:18 AM [facility] Albumin 2.9(L) 3.2 - 5.0 g/dL LAB CHEMISTRY METHOD 04/03/2025 6:18 AM [facility] Total Bilirubin 0.4 0.0 - 1.4 mg/dL LAB CHEMISTRY METHOD 04/03/2025 6:18 AM [facility] Blood Venous blood specimen / Unknown Venipuncture / Unknown 04/03/2025 5:18 AM EDT 04/03/2025 5:37 AM EDT us Krishan Shafer NP LAB BLOOD ORDERABLES Final Res ult [facility] [address] [place] [address], [place] [phone] from Last 3 Months Insurance MEDICARE [facility] Advance Directives Documents on File Type Date Recorded Patient Rn Nursery Expl anation Health Care Decision (hx) 05/13/2024 [...] currently active code status orders. Care Teams Retail Service Representative Relationship Specialty Start Date End Date Billy Floyd MD [address] [facility] [address] [place], [place] PCP - General Internal Medicine 04/03/25
--- OUTSIDE RECORDS SUMMARY | 2025-04-17 18:29 | XMS_ITS | Data Portability ---
Author Organization [place] - Eduard Carr [facility], [facility] Address [address] [place] [address] Assessment Encounter Date Assessment Date Assessment LastModified by Organization Details LastModified Time 02/06/2025 02/06/2025 Imaging: Imaging ordered, independently reviewed and interpreted by Brando Li MD reveals the following findings: XR Hip Left hip: Two views of the hip were obtained including AP pelvis and groin lateral views. Status post hip surgery: Status post revision total hip arthroplasty with no evidence of complication, well fixed, well aligned, and located. There is good episcopalian of leg length and offset without loosening or migration. The greater trochanter appears well-healed to the remainder of the bone, there has been failure of the claw plate which has escape superiorly. Impression: Left total hip arthroplasty Plan: I advised Courtney that I think the plan to remove the claw plate is reasonable and sound. Most of her pain seems to be in this area, the greater trochanter fragment appears fully healed and the claw plate is certainly not doing anything anymore, so I think it makes the most sense to remove this. I advised her that she may follow up with me as needed if she has any other questions or concerns [email or web address] Not available 02/06/2025 15:47:42 Plan of Treatment Reminders Order Date Submit Date Provider Last Modified By Organization Details Last Modified Time Details Appointments None recorded . Lab None recorded . Referral None recorded . Procedures None recorded . Surgeries None recorded . Imaging XR, hip + pelvis, unilater al, 2 or 3 view - RM 201 LTHR pain 2024 025 [facility], [address], [address], [place], [address], 5 10:05:58 XR, hip + pelvis, unilater al, 2 or 3 view 2023 024 Not available 4 08:47:27 XR, lumbar spine 2023 024 [email or web address] [facility] Office, [address], [address], [place], [address], 4 08:47:28 Medication Orders None recorded . Patient TargetsNo targets recorded. Patient InstructionsNo instructions recorded. Reason for Referral None Reported. Results Created Date Observation Date Name Description Value Unit Range Abnormal Flag Note LastModifiedBy Organization Detail LastModifiedTime 03/22/20 24 02/08/2022 imagi ng/alberta hopkins tic resul t No observ ation record ed. [email or web address] Not Available 02/23 06:35:46 02/07/20 25 02/06/2025 XR, hip + pelvi s, unila teral , 2 or 3 view http:/ [email or web address] ?Encry pted=s hAaTro YD8dLq bEUv6g %2BXZw aYqtaq 0bqfl% 2Fg9IQ a4ajBk vP9nXo QUaueC m3YtLR FvZlgJ JJ8mAn HZtai3 3g8198 AC0Kla XWDV6G uKiQtr MwF INTERFACE [facility] [address], [place], [address], 02/06/2025 14:21:46 02/07/20 25 02/06/2025 XR, hip + pelvi s, unila teral , 2 or 3 view http:/ [email or web address] ?Encry pted=s hAaTro YD8dLq bEUv6g %2BXZw aYqtaq 0bqfl% 2Fg9IQ a4ajBk vP9nXo QUaueC m3YtLR FvZlgJ JJ8mAn HZtai3 0y6548 AC0Kla XWDV6G uKiQtr MwF INTERFACE [facility] Office [address], [place], [address], 02/06/2025 14:21:47 Result Notes Documentation Provider Name and Address Organization Details Recorded Time Xr, Hip + Pelvis, Unilateral, 2 Or 3 View : [email or web address] Encrypted=brUtXckWJ6lFyuC Uv6g%5CJMsyQxhum7efeg%2Fg 7EOp1dzGlmB2vYeXWbfqUf1Yl XHZtDfiKQU7eBtFEpbv69q262 0SK6BkmGQAY2BcLbRmrBfX Not Available [facility] 02/06/2025 14:21: 47 Xr, Hip + Pelvis, Unilateral, 2 Or 3 View : [email or web address] Encrypted=zqXzHdqOM3fQbzR Uv6g%8QGAuvQntmn8cifo%2Fg 4EZo7kfBsvU6fLbHJhalKb0Ta BVLcFedWSM0hSjBZbbi47j264 8EG8AqtDCWN6FqVfHscAoX Not Available [facility] 02/06/2025 14:21: 48 Problems Name Problem SNOMED Code Status Onset Date Resolution Date Notes Provider Name and Address Organization Details Recorded Time History of repair of hip joint 789075389 Active 025 Brando Li MD [address], [place], [address], [facility] 5 15:47:41 Problem Notes None recorded. Procedures Surgical History Date Name Laterality Status Provider Name and Address Organization Details Recorded Time 4 Knee Kenalog 40mg 2cc Injection, L/R completed Fidencio Sesay PA-C [address], [place], [address], [facility] 01/11/2024 16:06:28 4 Hip Kenalog Injection, L/R w/US completed Fidencio Sesay PA-C [address], [place], [address], [facility] 01/11/2024 16:07:03 4 Knee Joint(s)/Bursa( e) Aspiration Kenalog 2cc completed Fidencio Sesay PA-C [address], [place], [address], [facility] 10/05/2023 10:46:32 4 Hip Joint/Bursa Aspiration completed Fidencio Sesay PA-C [address], [place], [address], [facility] 10/05/2023 10:48:03 Imaging Results None recorded. Procedure Notes None recorded. Medical Equipment None Reported. Allergies Allergen ID Allergen Name Allergen Category Reaction Reaction Severity Criticality Documentation Date Start Date Code Code System Note Provider Name and Address Organization Details Recorded Time 74345 Cephalosp salty (substanc e) medicatio n Not available Not available Not available 09/25/20232017 52810 7003 SNOMED Not Available [facility] 14:03:39 Medications Name Sig Start Date Stop Date Status Note LastModified by Organization Details LastModified Time atorvastati n 10 mg tablet Take 1 tablet every day by oral route. active Not Available Not Available No t Available pseudoephed rine-guaife nesin ER 80-700 mg tablet,exte nded release Percocet 5-325MG Tablet 1-2 Q 4-6 Hours Prn 02/06 completed Statu s: 'Curr ent'; Not Available Not Available Not Available solifenacin 5 mg tablet active Not Available Not Available Not Available Vesicare active Not Available Not Avai lable Not Available oxycodone HCl-oxycodo ne-ASA as directed 1 Tab po Q 4-6 hrs prn pain. DO NOT DRIVE WHILE TAKING THIS MEDICATIO N 02/06 completed Statu s: 'Curr ent'; Not Available Not Available Not Available Butrans active Not Available Not Avail able Not Available Vitals Date Recorded Body height Body mass index (BMI) Body weight Provider Name and Address Organization Details Last Updated DateTime 10/05/2023 167.64 cm 25 kg/m2 24581.82 g Fidencio Sesay PA-C [address], [place], [address], [facility] 10/05/2023 09:47:57 Date Recorded Body height Body mass index (BMI) Body weight Provider Name and Address Organization Details Last Updated DateTime 01/11/2024 167.64 cm 25 kg/m2 93112.82 g Fidencio Sesay PA-C [address] [facility] [address], [facility] [address] 01/11/2024 15:44:41 Date Recorded Body height Body mass index (BMI) Body weight Provider Name and Address Organization Details Last Updated DateTime 02/06/2025 167.64 cm 26.3 kg/m2 16532.56 g Brando Li MD [address], [place], [address], [facility] 02/06/2025 14:02:08 Social History None recorded. Functional Status None recorded. Mental Status None recorded. Family History Nothing Reported. Medical History Condition Response Allergies/Hayfever N Coronary Artery Disease N Anxiety/Depression N Breathing or lung disorders N Emphysema N Nerve Disorders N Thyroid Problems N COPD N Pacemaker N Anemia N Kidney/Bladder Problems N Vascular Disease N Heart Trouble N Heart Attack ([place]) N Gastrointestinal Disease N Cholesterol N Diabetes N Autoimmune disease N Bleeding Disorder N Inflammatory Joint disease N Orthotics N Arthritis N Seizures/Epilepsy N Blood Clot Y AIDS/HIV N Congestive Heart Failure (CHF) N Acid Reflux (GERD) N Cancer N Stroke N Asthma N Circulation Problems N Peripheral Vascular Disease N Sleep Apnea N Hepatitis N Heart Disease N Rheumatoid Arthritis N Arrhythmia N Pulmonary Embolism N Headaches N Fibromyalgia N Hypertension N Osteoporosis N Gynecological HistoryNo gynecological history recorded. Obstetrics History GPAL:G 0 P 0 0 0 0 Past Encounters Encounter ID Performer Location Encounter Start Date Encounter Closed Date Diagnosis/Indication Diagnosis SNOMED-CT Code Diagnosis ICD10 Code Diagnosis IMO Codes Diagnosis Note [id number] JOGRE Jama [address] [place] [address] 10/05/2023 09:32:36 10/05/2023 11:41:43 Pain of left hip joint 9502150797 78118 M25.552 Osteoarthr itis of left knee joint 0353834579 24972 M17.12 Osteoarthr itis of left hip joint 1892101740 93454 M16.12 [id number] JORGE Jama [address] [place] [address] 01/11/2024 15:34:51 02/09/2024 12:18:07 Osteoarthritis of left knee joint 5350495511 27928 M17.12 Osteoarthr itis of left hip joint 8200437126 22692 M16.12 [id number] MD TAZ Blanco [address] floor [address] [place] [address] 02/06/2025 13:56:38 02/14/2025 10:05:58 Pain of hip region 11370188 M25.552 99424109 History of repair of hip joint 822152052 Z98.890 88261179 Health Concerns Section Related Observation LastModified by Organization Detai ls LastModified Time None Recorded Concern Status LastModified by Organization Details LastModified Time None Recorded Advance Directives Directive None Recorded Payers Insurance Date Sequence Insurance Name Policy Number Policy Gallegos Covered Member ID Gallegos Member ID Guarantor Name 02/06/2025 1 [place] [employer] Courtney S Jonnathan [id number] Courtney Jonnathan 02/14/2025 2 [employer] (MEDICARE SUPPLEMENT) Courtney Jonnathan [id number] Courtney Jonnathan Notes Date Note Type Note Provider Name and Address Organization Details Recorded Time 10/05/2023 text/html I am seeing the patient today under the supervision of Dr. Mena who was available but who did not see the patient.HPI:The patient's a 73-year-old female comes to the office with complaints of discomfort about her left knee and left hip. Her history is outlined by my previous notes. I diagnosed her with mild arthritic change the left hip in 2021. She had an intra-articular injection that helped mildly. At the time she had some significant back issues. Her back issues have resolved. She has pain over the lateral side hip with stiffness in the morning. The pain radiates into the thigh and groin. Also, she has medial sided left knee pain. Also, she complains of stiffness in the knee in the morning. She has a history of a knee arthroscopy with removal of the medial meniscus. She has more pain in the left hip currently.Past family, medical, social history and review of systems has been reviewed, updated and is located in the patient s chart.Examination:T he patient is well appearing and in no apparent distress. Alert and oriented x3. Gait is symmetric. No significant swelling, warmth, erythema the left hip or left knee. Mild tennis the medial joint line left knee. Left knee flexion to 120 with mild pain. Range of motion left hip is flexion to 90 with internal rotation to 10/15 with stiffness and pain and external rotation to approximately 15 . Peripheral, vascular, lymphatic examination, skin, neurological, coordination, reflexes, sensation are within normal limits.X-rays ordered, obtained and reviewed at [facility] 2 views of the left hip reviewed demonstrate moderate to severe arthritic change from zone 2 to zone 3 with subchondral sclerosis.Impression :Mild to moderate left hip arthritis. Osteoarthritis left kneePlan:I reviewed the x-rays and diagnoses with the patient and we discussed conservative options for her arthritic joints. Activity modification discussed. P.r.n. NSAIDs can be used. We discussed the risks associated with NSAID use. We discussed the role of a home exercise program. We discussed injection therapies for the hip and the knee. We did not do x-rays for her left knee. However she has recurrent pain in her left knee, she understands that her next visit we should obtain x-rays of her left knee. She wishes to go forward with conservative management. However, we did discuss total joint replacement surgery for the arthritic hip and knee. We discussed the surgeries itself and rehabilitation process for both joints. Injected 80 mgs of Kenalog, and 8cc of % Marcaine under sterile conditions into the left knee. Patient tolerated the injection well. Moderating activities recommended. I injected 40 mg of Kenalog and 2 cc of lidocaine into the left hip joint using L Bass technique under sterile conditions. Fidencio Sesay PA-C [address], [place], [address], [facility] 10/05/2023 10:48:52 01/11/2024 text/html I am seeing the patient today under the supervision of Dr. Mena who was available but who did not see the patient. HPI: The patient returns for follow-up of left hip pain. The history is outlined by previous notes. The patient has recurrent pain about the left hip. Also, she complains of discomfort about the left knee and has known arthritis of the left knee. Past family, medical, social history and review of systems has been reviewed, updated and is located in the patient s chart. Examination: The patient is well appearing and in no apparent distress. Alert and oriented x3. Gait is symmetric. No significant swelling warmth or erythema about the left hip. Range of motion of the left hip is decreased in all planes. . Positive tenderness of the medial joint line of the left knee. Range of motion left knee is just about full extension and jvjjubn-bwom-szs and 20 Peripheral, vascular, lymphatic examination, skin, neurological, coordination, reflexes, sensation are within normal limits. Impression: Osteoarthritis of the left hip. Osteoarthritis left knee Plan: Reviewed diagnosis with the patient today in the office. We discussed the patient's options. We discussed the risks, options, benefits In regards toa total hip arthroplasty. We discussed the surgery itself and rehabilitation process. We discussed conservative management. Activity modification discussed. P.r.n. NSAIDs can use. We discussed the risks associated with NSAID use. I injected 40 mg of Kenalog and 2 cc of 1% lidocaine into the left hip joint using the ultrasound-guided technique under sterile conditions. The patient tolerated the injection well. I injected 80 mg of Kenalog and 8 cc cortisone Marcaine into the left knee under sterile conditions. Fidencio Sesay PA-C [address] [place], [place] [address] [address], [place], [address], [facility] 01/11/2024 16:07:50 02/06/2025 text/html ROS as noted in the HPI History of present illness:Courtney presents today for second opinion evaluation of her left hip. She had her left hip replaced by Dr. Donato at [facility], she states that 48 hours after her surgery she had a fracture and she had to return to the OR for revision surgery. She has been having difficulty walking since that time, she states that Dr. Donato has told her that he needs to remove the plate that fixed her greater trochanter in order to improve her gait, and she presents today to me to double check to see whether that seems like a reasonable plan.Past family, medical, social history and review of systems has been reviewed and updated, and is located in the patient s chart. Brando Li MD [address], [place], [address], [facility] [place] [facility] 02/06/2025 15:47:49 OBGyn Episode No OBEpisode recorded.
--- OUTSIDE RECORDS SUMMARY | 2025-04-17 18:30 | XMS_ITS | Clinical Summary ---
Author Organization [facility] Address [address] [place] [address] Care Team Providers Care Engineer Internship Name Role Phone Billy Floyd MD Primary Care Provider [phone] Allergies Active Allergy Reactions Criticality Noted Date [...] this topic Medical Devices Implanted Type Area Stave And Bolt Equalizer Device Identifier Shelf Expiration Date Model / Serial / Lot 7-13 Rise 8mm Cage Implanted:Qt y: 1 on 02/06/2018 by Shemar Small MD at [facility] Cage N/A: Spine Lumbar [employer] [id number] / / 35mm Deangelo Implanted:Qt y: 1 on 02/06/2018 by Shemar Small MD at [facility] Nail/Deangelo N/A: Spine Lumbar [employer] MINIMALLY INVASIVE T [id number] / / 40mm Deangelo Implanted:Qt y: 1 on 02/06/2018 by Shemar Small MD at [facility] Nail/Deangelo N/A: Spine Lumbar [employer] MINIMALLY INVASIVE T [id number] / / 6.5 X 55mm Voyager Screw Implanted:Qt y: 1 on 02/06/2018 by Shemar Small MD at [facility] Screw N/A: Spine Lumbar [employer] MINIMALLY INVASIVE T [id number] / / 6.5 X 50mm Voyager Screw Implanted:Qt y: 1 on 02/06/2018 by Shemar Small MD at [facility] Screw N/A: Spine Lumbar [employer] MINIMALLY INVASIVE T [id number] / / 6.5 X 45mm Voyager Screw Implanted:Qt y: 2 on 02/06/2018 by Shemar Small MD at [facility] Screw N/A: Spine Lumbar [employer] MINIMALLY INVASIVE T [id number] / / Fibrinet Implanted:Qt y: 1 on 02/06/2018 by Shemar Small MD at [facility] Tissue N/A: Spine Lumbar Other 03/20/2018 [id number] / / [id number] Insurance MEDICARE PART A & B [facility] Advance Directives * Full Code (Latest Code Status on File) Date Activated Date Inactivated Comments 02/06/2018 3:26 PM Care Teams Engineer Internship Relationship Specialty Start Date End Date Billy Floyd MD [address] [address] PCP - General Internal Medicine 01/30/18
--- OUTSIDE RECORDS SUMMARY | 2025-06-07 20:00 | XMS_ITS | Clinical Summary ---
Author Organization Unknown Care Team Providers Care Skein Yarn Dyer Name Role Phone OSMANY KAY, JJ Unavailable Unavailable CURT PT, [place] Unavailable Unavailable SHERWIN KNOX, YOLI Unavailable Unavailable Payers Payer Name Policy Type Policy Number Effective Date Expira tion Date MEDICARE.NGS.PDGM [id number] Problems Condition Name Condition Details Condition Category Status Onset Date Resolution Date Last Treatment Date Treating Clinician Comments FX UNSP PART OF NK OF L FEMR, SUBS FOR CLOS FX W ROUTN HEAL Active 02-28 00:00: 00 PERIPROSTH FRACTURE AROUND INTERNAL PROSTH L HIP JT, SUBS Active 04-10 00:00: 00 ESSENTIAL (PRIMARY) HYPERTENSION Active 04-10 00:00: 00 ANEMIA, UNSPECIFIED Active 04-10 00:00: 00 ANXIETY DISORDER, UNSPECIFIED Active 04-10 00:00: 00 DEPRESSION, UNSPECIFIED Active 04-10 00:00: 00 OVERACTIVE BLADDER Active 04-10 00:00: 00 FATTY (CHANGE OF) LIVER, NOT ELSEWHERE CLASSIFIED Active 04-10 00:00: 00 HYPERLIPIDEM IA, UNSPECIFIED Active 04-10 00:00: 00 GASTRO-ESOPH AGEAL REFLUX DISEASE WITHOUT ESOPHAGITIS Active 04-10 00:00: 00 JAIL (CURRENT) USE OF ANTICOAGULAN TS Active 04-10 00:00: 00 PERSONAL HISTORY OF OTHER VENOUS THROMBOSIS AND EMBOLISM Active 04-10 00:00: 00 PERSONAL HISTORY OF OTHER MALIGNANT NEOPLASM OF KIDNEY Active 04-10 00:00: 00 PERSONAL HISTORY OF NICOTINE DEPENDENCE Active 04-10 00:00: 00 Allergies, Adverse Reactions, Alerts Allergy Name Allergy Type Status Severity Reaction(s) Onset Date Inactive Date Treating Clinician Comments ITRACONAZOLE Propensity to adverse reactions Active 2025-0 9-18 10:20: 55 Medications Ordered Medication Name Filled Medication Name Start Date Stop Date Current Medication? Ordering Clinician Indication Dosage Frequency Signature (SIG) Comments Components aspirin 325 mg tablet 2023-07 00:00: 00 01-29 23:59 :00 No [id number] NSAID 325 mg 2 TIMES DAILY 325 mg 2 TIMES DAILY (route: oral) Med Classific ation: Analgesic , Anti-infl ammatory or Antipyret ic oxycodone 5 mg capsule 2023-07 00:00: 00 01-29 23:59 :00 No [id number] PAIN 5 mg EVERY 6 HOURS 5 mg EVERY 6 HOURS (route: oral) Med Classific ation: Analgesic , Anti-infl ammatory or Antipyret ic Prozac 40 mg capsule 2023-07 00:00: 00 01-29 23:59 :00 No [id number] DEPRESSION 40 mg DAILY 40 mg DAILY (route: oral) Med Classific ation: Central Nervous System Agents Tylenol 325 mg capsule 2023-07 00:00: 00 01-29 23:59 :00 No [id number] PAIN MED 975 mg 3 TIMES DAILY 975 mg 3 TIMES DAILY (route: oral) Med Classific ation: Analgesic , Anti-infl ammatory or Antipyret ic Vesicare 10 mg tablet 2023-07 00:00: 00 01-29 23:59 :00 No [id number] OVERACTIVE BLADDER 5 mg DAILY 5 mg DAILY (route: oral) Med Classific ation: Genitouri nary Therapy Wellbutrin XL 150 mg 24 hr tablet, extended release 2023-07 00:00: 00 01-29 23:59 :00 No [id number] DEPRESSION 150 mg DAILY 150 mg DAILY (route: oral) Med Classific ation: Central Nervous System Agents Calcium 600 + D(3) 600 mg-10 mcg (400 unit) tablet 2023-07 00:00: 00 01-29 23:59 :00 No [id number] SUPPLEMENT 1 tablet 2 TIMES DAILY 1 tablet 2 TIMES DAILY (route: oral) Med Classific ation: Electroly te Balance-N utritiona l Products Vital Signs Vital Name Observation Time Observation Value Commen ts Temperature 2025-04-16 08:35:00.000 97.7 [degF] Temperature 2025-04-14 17:29:00.000 97.3 [degF] Temperature 2025-04-14 10:09:00.000 97.4 [degF] Temperature 2025-04-10 09:53:00.000 97.1 [degF] BMI (%) 2025-04-10 09:25:55.000 26 kg/m2 Height 2025-04-10 09:25:49.000 66 [in_us] Pulse 2025-04-16 08:35:00.000 68 /min Pulse 2025-04-14 17:29:00.000 70 /min Pulse 2025-04-14 10:09:00.000 65 /min Pulse 2025-04-10 09:53:00.000 68 /min O2 Saturation (%) 2025-04-16 08:36:00.000 97 % O2 Saturation (%) 2025-04-14 17:30:00.000 97.3 % O2 Saturation (%) 2025-04-14 10:10:00.000 97 % O2 Saturation (%) 2025-04-10 09:53:00.000 96 % Respirations 2025-04-16 08:35:00.000 18 /min Respirations 2025-04-14 17:29:00.000 18 /min Respirations 2025-04-14 10:09:00.000 18 /min Respirations 2025-04-10 09:53:00.000 16 /min Weight (lbs) 2025-04-10 09:25:55.000 165 [lb_av] Systolic Blood Pressure 2025-04-16 08:35:00.000 112 mm [Hg] Systolic Blood Pressure 2025-04-14 17:29:00.000 118 mm [Hg] Systolic Blood Pressure 2025-04-14 10:09:00.000 108 mm [Hg] Systolic Blood Pressure 2025-04-10 09:53:00.000 104 mm [Hg] Diastolic Blood Pressure 2025-04-16 08:35:00.000 64 mm [Hg] Diastolic Blood Pressure 2025-04-14 17:29:00.000 68 mm [Hg] Diastolic Blood Pressure 2025-04-14 10:09:00.000 64 mm [Hg] Diastolic Blood Pressure 2025-04-10 09:53:00.000 64 mm [Hg] Plan of Treatment Planned Activity Planned Date Details Comments Future Scheduled Test RN TO OBSE RVE, ASSESS, EVALUATE, AND DEVELOP AN INDIVIDUALIZED PLAN OF CARE. AGENCY MAY ACCEPT ORDERS FROM CONSULTING PHYSICIANS, RN TO OBSERVE AND ASSESS, SHIPFITTER APPRENTICE/CARPENTER MOLD TO OBSERVE FOR RISK FOR FALLS AND INSTRUCT IN FALL PREVENTION, HOME SAFETY, MEDICATION MANAGEMENT, INFECTION PREVENTION, AND NUTRITION MANAGEMENT. RN/SHIPFITTER APPRENTICE/CARPENTER MOLD NURSE MAY PERFORM O2 SATURATION LEVEL ON ADMISSION AND PRN FOR RN TO ASSESS/SHIPFITTER APPRENTICE TO OBSERVE PATIENT, WITH NOTIFICATION TO THE PHYSICIAN IF SATURATION IS 90% IN THE ABSENCE OF MORE SPECIFIC PARAMETERS FROM THE PHYSICIAN. AGENCY MAY PERFORM A RESUMPTION OF CARE VISIT FOLLOWING ANY HOSPITAL ADMISSION. RN/SHIPFITTER APPRENTICE/CARPENTER MOLD TO MONITOR CO-MORBID CONDITIONS LISTED ON THE PLAN OF CARE AND ANY NEW CONDITIONS THAT PRESENT THEMSELVES DURING THIS EPISODE TO IDENTIFY CHANGES AND INTERVENE TO MINIMIZE COMPLICATIONS. [code = RN TO OBSERVE, ASSESS, EVALUATE, AND DEVELOP AN INDIVIDUALIZED PLAN OF CARE. AGENCY MAY ACCEPT ORDERS FROM CONSULTING PHYSICIANS, RN TO OBSERVE AND ASSESS, SHIPFITTER APPRENTICE/CARPENTER MOLD TO OBSERVE FOR RISK FOR FALLS AND INSTRUCT IN FALL PREVENTION, HOME SAFETY, MEDICATION MANAGEMENT, INFECTION PREVENTION, AND NUTRITION MANAGEMENT. RN/SHIPFITTER APPRENTICE/CARPENTER MOLD NURSE MAY PERFORM O2 SATURATION LEVEL ON ADMISSION AND PRN FOR RN TO ASSESS/SHIPFITTER APPRENTICE TO OBSERVE PATIENT, WITH NOTIFICATION TO THE PHYSICIAN IF SATURATION IS 90% IN THE ABSENCE OF MORE SPECIFIC PARAMETERS FROM THE PHYSICIAN. AGENCY MAY PERFORM A RESUMPTION OF CARE VISIT FOLLOWING ANY HOSPITAL ADMISSION. RN/SHIPFITTER APPRENTICE/CARPENTER MOLD TO MONITOR CO-MORBID CONDITIONS LISTED ON THE PLAN OF CARE AND ANY NEW CONDITIONS THAT PRESENT THEMSELVES DURING THIS EPISODE TO IDENTIFY CHANGES AND INTERVENE TO MINIMIZE COMPLICATIONS.] Future Scheduled Test MEDICATION MANAGEMENT; RN/SHIPFITTER APPRENTICE/CARPENTER MOLD TO REVIEW MEDICATIONS FOR INTERACTIONS, EFFECTIVENESS OF DRUG THERAPY, AND SIGNS/SYMPTOMS OF ADVERSE REACTIONS. MAY INSTRUCT AND REINFORCE MEDICATION TEACHING RELATED TO THE USE OF MEDICATIONS, DOSAGE, FREQUENCY, PURPOSE, SIDE EFFECTS, AND TO REPORT COMPLICATIONS. [code = MEDICATION MANAGEMENT; RN/SHIPFITTER APPRENTICE/CARPENTER MOLD TO REVIEW MEDICATIONS FOR INTERACTIONS, EFFECTIVENESS OF DRUG THERAPY, AND SIGNS/SYMPTOMS OF ADVERSE REACTIONS. MAY INSTRUCT AND REINFORCE MEDICATION TEACHING RELATED TO THE USE OF MEDICATIONS, DOSAGE, FREQUENCY, PURPOSE, SIDE EFFECTS, AND TO REPORT COMPLICATIONS.] Future Scheduled Test RN TO ASSE SS/TEACH, SHIPFITTER APPRENTICE,CARPENTER MOLD TO OBSERVE AND TEACH MEASURES FOR RECOVERY AND SELF MANAGEMENT POST HIP REPLACEMENT TO MINIMIZE COMPLICATIONS AND REDUCE RISK OF HOSPITALIZATION. [code = RN TO ASSESS/TEACH, SHIPFITTER APPRENTICE,CARPENTER MOLD TO OBSERVE AND TEACH MEASURES FOR RECOVERY AND SELF MANAGEMENT POST HIP REPLACEMENT TO MINIMIZE COMPLICATIONS AND REDUCE RISK OF HOSPITALIZATION.] Future Scheduled Test RN TO ASSE SS/TEACH, SHIPFITTER APPRENTICE/CARPENTER MOLD TO OBSERVE/TEACH SURGICAL AFTERCARE MANAGEMENT TO AVOID HOSPITALIZATION. [code = RN TO ASSESS/TEACH, SHIPFITTER APPRENTICE/CARPENTER MOLD TO OBSERVE/TEACH SURGICAL AFTERCARE MANAGEMENT TO AVOID HOSPITALIZATION.] Future Scheduled Test RN TO ASSE SS/TEACH, SHIPFITTER APPRENTICE,CARPENTER MOLD TO OBSERVE AND TEACH MEASURES FOR SELF-MANAGEMENT POST A SURGICAL HIP REPLACEMENT OR FEMUR FRACTURE TO MINIMIZE COMPLICATIONS AND REDUCE RISK OF HOSPITALIZATION. [code = RN TO ASSESS/TEACH, SHIPFITTER APPRENTICE,CARPENTER MOLD TO OBSERVE AND TEACH MEASURES FOR SELF-MANAGEMENT POST A SURGICAL HIP REPLACEMENT OR FEMUR FRACTURE TO MINIMIZE COMPLICATIONS AND REDUCE RISK OF HOSPITALIZATION.] Future Scheduled Test PAIN MANAG EMENT; RN TO ASSESS AND TEACH, CARPENTER MOLD/SHIPFITTER APPRENTICE TO OBSERVE AND TEACH AND PROVIDE EDUCATION ON PAIN MANAGEMENT TECHNIQUES. [code = PAIN MANAGEMENT; RN TO ASSESS AND TEACH, CARPENTER MOLD/SHIPFITTER APPRENTICE TO OBSERVE AND TEACH AND PROVIDE EDUCATION ON PAIN MANAGEMENT TECHNIQUES.] Future Scheduled Test BLOOD CLOT MANAGEMENT; RN TO ASSESS AND TEACH/ SHIPFITTER APPRENTICE /CARPENTER MOLD TO OBSERVE AND TEACH AND PROVIDE EDUCATION ON BLOOD CLOT MANAGEMENT. [code = BLOOD CLOT MANAGEMENT; RN TO ASSESS AND TEACH/ SHIPFITTER APPRENTICE /CARPENTER MOLD TO OBSERVE AND TEACH AND PROVIDE EDUCATION ON BLOOD CLOT MANAGEMENT.] Future Scheduled Test FALL REDUC TION MANAGEMENT; RN TO ASSESS AND OBSERVE, SHIPFITTER APPRENTICE/CARPENTER MOLD TO OBSERVE FALL RISK FACTORS AND EDUCATE PATIENT/CAREGIVER ON STRATEGIES TO MINIMIZE THE RISK OF FALLING. [code = FALL REDUCTION MANAGEMENT; RN TO ASSESS AND OBSERVE, SHIPFITTER APPRENTICE/CARPENTER MOLD TO OBSERVE FALL RISK FACTORS AND EDUCATE PATIENT/CAREGIVER ON STRATEGIES TO MINIMIZE THE RISK OF FALLING.] Future Scheduled Test PHYSICAL T HERAPIST TO EVALUATE FOR SAFETY AND STRENGTHENING [code = PHYSICAL THERAPIST TO EVALUATE FOR SAFETY AND STRENGTHENING] Future Scheduled Test OCCUPATION AL THERAPIST TO EVALUATE FOR ADLS AND IADLS WITH HIP PRECAUTIONS [code = OCCUPATIONAL THERAPIST TO EVALUATE FOR ADLS AND IADLS WITH HIP PRECAUTIONS] Future Scheduled Test AGENCY MAY PERFORM A RESUMPTION OF CARE VISIT FOLLOWING ANY HOSPITAL ADMISSION. PT TO EVALUATE, OBSERVE / ASSESS, AND MONITOR, UNLOADER OPERATOR TO OBSERVE AND MONITOR, PROVIDE SKILLED THERAPEUTIC INTERVENTION, ACTIVITY, EDUCATION, AND TRAINING TO ADDRESS; PT/UNLOADER OPERATOR TO PROVIDE GAIT TRAINING FOR IMPROVED MOBILITY AND /OR TO NORMALIZE GAIT PATTERN THERAPEUTIC EXERCISES AND ESTABLISHING A HOME EXERCISE PROGRAM (PT/UNLOADER OPERATOR) PT/UNLOADER OPERATOR TO PROVIDE STAIR TRAINING BED TRANSFERS (PT/UNLOADER OPERATOR) SIT TO/FROM STAND TRANSFERS (PT/UNLOADER OPERATOR) PT / UNLOADER OPERATOR TO MONITOR AND EDUCATE ON OXYGEN SATURATION DURING ADLS/IADLS, NOTIFY PHYSICIAN AND/OR THE RN CLINICAL [employer]ATRA OPENER FOR PHYSICIAN NOTIFICATION AND IF O2 SATS BELOW PHYSICIAN ORDERED PARAMETERS AFTER 10 MIN OF REST PT / UNLOADER OPERATOR TO EDUCATE ON HIP REPLACEMENT SELF-MANAGEMENT PT/UNLOADER OPERATOR TO IDENTIFY FALL RISK FACTORS; EDUCATE THE PATIENT/CAREGIVER ON WAYS TO REDUCE FALL RISK FACTORS AND ESTABLISH HOME EXERCISE PROGRAM TO MINIMIZE FALL RISK. MAY TEACH THE PATIENT FLOOR RECOVERY WHEN CLINICALLY APPROPRIATE PT / UNLOADER OPERATOR MAY EDUCATE ON PAIN MANAGEMENT CLINICALLY INDICATED, INCLUDING NON-PHARMACOLOGICAL PAIN REDUCTION TECHNIQUES. [code = AGENCY MAY PERFORM A RESUMPTION OF CARE VISIT FOLLOWING ANY HOSPITAL ADMISSION. PT TO EVALUATE, OBSERVE / ASSESS, AND MONITOR, UNLOADER OPERATOR TO OBSERVE AND MONITOR, PROVIDE SKILLED THERAPEUTIC INTERVENTION, ACTIVITY, EDUCATION, AND TRAINING TO ADDRESS; PT/UNLOADER OPERATOR TO PROVIDE GAIT TRAINING FOR IMPROVED MOBILITY AND /OR TO NORMALIZE GAIT PATTERN THERAPEUTIC EXERCISES AND ESTABLISHING A HOME EXERCISE PROGRAM (PT/UNLOADER OPERATOR) PT/UNLOADER OPERATOR TO PROVIDE STAIR TRAINING BED TRANSFERS (PT/UNLOADER OPERATOR) SIT TO/FROM STAND TRANSFERS (PT/UNLOADER OPERATOR) PT / UNLOADER OPERATOR TO MONITOR AND EDUCATE ON OXYGEN SATURATION DURING ADLS/IADLS, NOTIFY PHYSICIAN AND/OR THE RN CLINICAL SUMATRA OPENER FOR PHYSICIAN NOTIFICATION AND IF O2 SATS BELOW PHYSICIAN ORDERED PARAMETERS AFTER 10 MIN OF REST PT / UNLOADER OPERATOR TO EDUCATE ON HIP REPLACEMENT SELF-MANAGEMENT PT/UNLOADER OPERATOR TO IDENTIFY FALL RISK FACTORS; EDUCATE THE PATIENT/CAREGIVER ON WAYS TO REDUCE FALL RISK FACTORS AND ESTABLISH HOME EXERCISE PROGRAM TO MINIMIZE FALL RISK. MAY TEACH THE PATIENT FLOOR RECOVERY WHEN CLINICALLY APPROPRIATE PT / UNLOADER OPERATOR MAY EDUCATE ON PAIN MANAGEMENT CLINICALLY INDICATED, INCLUDING NON-PHARMACOLOGICAL PAIN REDUCTION TECHNIQUES.] Goal Patient Goal - TO HEAL THIS TIME Goal Provider Goal - A PLAN OF CARE WILL BE ESTABLISHED THAT MEETS THE PATIENT S NEEDS. PATIENT WILL DEMONSTRATE OXYGEN SATURATION WITHIN NORMAL LIMITS OR PATIENT S OPTIMAL LEVEL ESTABLISHED BY THE PHYSICIAN THROUGHOUT CARE. CHANGES TO CO-MORBID CONDITIONS AND ANY NEW CONDITIONS WILL BE IDENTIFIED AND REPORTED TO THE PHYSICIAN. Goal Provider Goal - PATIENT/CAREGIVER TO VERBALIZE, AND CONSISTENTLY DEMONSTRATE EFFECTIVE, SAFE MANAGEMENT OF MEDICATION INCLUDING KNOWLEDGE OF EFFECTIVENESS, POTENTIAL SIDE EFFECTS AND DRUG REACTIONS AND WHEN TO CONTACT THE APPROPRIATE CARE PROVIDER. PATIENT/CAREGIVER WILL BE ABLE TO VERBALIZE UNDERSTANDING OF MEDICATION REGIMEN AND ACCURATELY TAKE MEDICATIONS PRESCRIBED WITHOUT ADVERSE EFFECTS BY END OF EPISODE Goal Provider Goal - PATIENT/CAREGIVER WILL DEMONSTRATE UNDERSTANDING OF MEASURES FOR SELF-MANAGEMENT OF A HIP REPLACEMENT. Goal Provider Goal - PATIENT/CAREGIVER WILL VERBALIZE/DEMONSTRATE POSTOPERATIVE CARE TO MINIMIZE COMPLICATION AND AVOID HOSPITALIZATIONS BY THE END OF THE EPISODE. Goal Provider Goal - PATIENT/CAREGIVER WILL DEMONSTRATE UNDERSTANDING OF MEASURES FOR SELF-MANAGEMENT OF A FEMUR FRACTURE OR A POST SURGICAL HIP REPLACEMENT. Goal Provider Goal - PATIENT / CAREGIVER WILL VERBALIZE / DEMONSTRATE UNDERSTANDING OF PAIN CONTROL MEASURES BY END OF EPISODE Goal Provider Goal - PATIENT/CAREGIVER WILL VERBALIZE UNDERSTANDING OF CARE AND MANAGEMENT OF BLOOD CLOT BY END OF EPISODE. Goal Provider Goal - PATIENT/CAREGIVER WILL VERBALIZE/DEMONSTRATE UNDERSTANDING OF FALL RISK FACTORS AND IMPLEMENT STRATEGIES TO MINIMIZE FALL RISK. PATIENT/CAREGIVER WILL VERBALIZE/DEMONSTRATE AN ABILITY TO ADHERE TO FALL REDUCTION SELF-MANAGEMENT AND LIFE-STYLE CHANGES BY END OF EPISODE Goal Provider Goal - PATIENT WILL IMPROVE HOUSEHOLD GAIT AND STAIRS FROM CGA AND MOD A TO INDEPENDENT IN 4 WEEKS TO PROMOTE IMPROVED FUNCTIONAL MOBILITY PATIENT WILL DEMO INDEP PERFORMANCE OF HEP IN 2 WEEKS TO PROMOTE LE STABILITY AND ACTIVITY TOLERANCE PATIENT WILL IMPROVE HOUSEHOLD TRANSFERS FROM CGA AND MIN A TO INDEPENDENT IN 3 WEEKS TO PROMOTE IMPROVED FUNCTIONAL MOBILITY PT [...] BE INDEPENDENT WITH IMPLEMENTATION OF HEP WITHIN 3 WEEKS PT LTG: CAREGIVER WILL BE INDEPENDENT ASSISTING PATIENT TO COMPLETE HEP WITHIN 3 WEEKS PT GOAL: PATIENT WILL DEMONSTRATE UNDERSTANDING OF PAIN MANAGEMENT TECHNIQUES BY END OF EPISODE. Progress Notes Progress Notes <paragraph>[Visit Date: 2024 by ALIREZA FERRARI LPN]:</paragraph><paragraph>ALERT AND ORIENTED AMBULATES WITH SLOW GAIT WITH WALKER.VOIDING WITHOUT DIFFICULTY APPETITE AND HYDRATION ADEQUATE PAIN LEVEL TO L HIP 4-10 TAKES OXYCODONE WITH SOME RELIEF.PATIENT EDUCATION ON POSSIBLE CONSTIPATION AND SAFETY WHEN AMBULATORY. PATIENT CHANGED DRESSING YESTERDAY AFTER GETTING WET [facility] INTACT.SCHEDULED REMOVAL FOR 04/17.PATIENT EDUCATION ON PAIN CONTROL.PATIENT TO NOTIFY NURSING OF ANY HEALTH ISSUES</paragraph> Encounters Start Date/Time End Date/Time Encounter Type Admission Type Attending [facility] Department Encounter ID Discharge Date Discharge Status Discharge Condition Discharge Reason Percent Goals Met 2025-04-10 00:00:00 2025-06-08 00:00:00 Outpatient [place] MORGAN [facility] [id number]
--- OUTSIDE RECORDS SUMMARY | 2025-06-07 20:00 | XMS_ITS | Clinical Summary ---
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 04-10 00:00: 00 FDC (CURRENT) USE OF ANTICOAGULAN TS Active 04-10 [...] 2023-07 00:00: 00 01-29 23:59 :00 No [id number] NSAID 325 mg 2 TIMES DAILY 325 mg 2 TIMES DAILY (route: oral) Med Classific ation: Analgesic , Anti-infl ammatory or Antipyret ic oxycodone 5 mg capsule 2023-07 00:00: 00 01-29 23:59 :00 No [id number] PAIN 5 mg EVERY 6 HOURS 5 mg EVERY 6 HOURS (route: oral) Med Classific ation: Analgesic , Anti-infl ammatory or Antipyret ic Prozac 40 mg capsule 2023-07 00:00: 00 01-29 23:59 :00 No [id number] DEPRESSION 40 mg DAILY 40 mg DAILY (route: oral) Med Classific ation: Central Nervous System Agents Tylenol 325 mg capsule 2023-07 00:00: 00 01-29 23:59 :00 No [id number] PAIN MED 975 mg 3 TIMES DAILY 975 mg 3 TIMES DAILY (route: oral) Med Classific ation: Analgesic , Anti-infl ammatory or Antipyret ic Vesicare 10 mg tablet 2023-07 00:00: 00 01-29 23:59 :00 No [id number] OVERACTIVE BLADDER 5 mg DAILY 5 mg DAILY (route: oral) Med Classific ation: Genitouri nary Therapy Wellbutrin XL 150 mg 24 hr tablet, extended release 2023-07 00:00: 00 01-29 23:59 :00 No [id number] DEPRESSION 150 mg DAILY 150 mg DAILY (route: oral) Med Classific ation: Central Nervous System Agents Calcium 600 + D(3) 600 mg-10 mcg (400 unit) tablet 2023-07 00:00: 00 01-29 23:59 :00 No [id number] SUPPLEMENT 1 tablet 2 TIMES DAILY 1 [...] CONSULTING PHYSICIANS, RN TO OBSERVE AND ASSESS, ADVISORY APPLICATION DEVELOPER/TIE CARRIER TO OBSERVE FOR RISK FOR FALLS AND INSTRUCT IN FALL PREVENTION, HOME SAFETY, MEDICATION MANAGEMENT, INFECTION PREVENTION, AND NUTRITION MANAGEMENT. RN/ADVISORY APPLICATION DEVELOPER/TIE CARRIER NURSE MAY PERFORM O2 SATURATION LEVEL ON ADMISSION AND PRN FOR RN TO ASSESS/ADVISORY APPLICATION DEVELOPER TO OBSERVE PATIENT, WITH NOTIFICATION TO THE PHYSICIAN IF SATURATION IS 90% IN THE ABSENCE OF MORE SPECIFIC PARAMETERS FROM THE PHYSICIAN. AGENCY MAY PERFORM A RESUMPTION OF CARE VISIT FOLLOWING ANY HOSPITAL ADMISSION. RN/ADVISORY APPLICATION DEVELOPER/TIE CARRIER TO MONITOR CO-MORBID CONDITIONS LISTED ON THE PLAN OF CARE AND ANY NEW CONDITIONS THAT PRESENT THEMSELVES DURING THIS EPISODE TO IDENTIFY CHANGES AND INTERVENE TO MINIMIZE COMPLICATIONS. [code = RN TO OBSERVE, ASSESS, EVALUATE, AND DEVELOP AN INDIVIDUALIZED PLAN OF CARE. AGENCY MAY ACCEPT ORDERS FROM CONSULTING PHYSICIANS, RN TO OBSERVE AND ASSESS, ADVISORY APPLICATION DEVELOPER/TIE CARRIER TO OBSERVE FOR RISK FOR FALLS AND INSTRUCT IN FALL PREVENTION, HOME SAFETY, MEDICATION MANAGEMENT, INFECTION PREVENTION, AND NUTRITION MANAGEMENT. RN/ADVISORY APPLICATION DEVELOPER/TIE CARRIER NURSE MAY PERFORM O2 SATURATION LEVEL ON ADMISSION AND PRN FOR RN TO ASSESS/ADVISORY APPLICATION DEVELOPER TO OBSERVE PATIENT, WITH NOTIFICATION TO THE PHYSICIAN IF SATURATION IS 90% IN THE ABSENCE OF MORE SPECIFIC PARAMETERS FROM THE PHYSICIAN. AGENCY MAY PERFORM A RESUMPTION OF CARE VISIT FOLLOWING ANY HOSPITAL ADMISSION. RN/ADVISORY APPLICATION DEVELOPER/TIE CARRIER TO MONITOR CO-MORBID CONDITIONS LISTED ON THE PLAN OF CARE AND ANY NEW CONDITIONS THAT PRESENT THEMSELVES DURING THIS EPISODE TO IDENTIFY CHANGES AND INTERVENE TO MINIMIZE COMPLICATIONS.] Future Scheduled Test MEDICATION MANAGEMENT; RN/ADVISORY APPLICATION DEVELOPER/TIE CARRIER TO REVIEW MEDICATIONS FOR INTERACTIONS, EFFECTIVENESS OF DRUG THERAPY, AND SIGNS/SYMPTOMS OF ADVERSE REACTIONS. MAY INSTRUCT AND REINFORCE MEDICATION TEACHING RELATED TO THE USE OF MEDICATIONS, DOSAGE, FREQUENCY, PURPOSE, SIDE EFFECTS, AND TO REPORT COMPLICATIONS. [code = MEDICATION MANAGEMENT; RN/ADVISORY APPLICATION DEVELOPER/TIE CARRIER TO REVIEW MEDICATIONS FOR INTERACTIONS, EFFECTIVENESS OF DRUG THERAPY, AND SIGNS/SYMPTOMS OF ADVERSE REACTIONS. MAY INSTRUCT AND REINFORCE MEDICATION TEACHING RELATED TO THE USE OF MEDICATIONS, DOSAGE, FREQUENCY, PURPOSE, SIDE EFFECTS, AND TO REPORT COMPLICATIONS.] Future Scheduled Test RN TO ASSE SS/TEACH, ADVISORY APPLICATION DEVELOPER,TIE CARRIER TO OBSERVE AND TEACH MEASURES FOR RECOVERY AND SELF MANAGEMENT POST HIP REPLACEMENT TO MINIMIZE COMPLICATIONS AND REDUCE RISK OF HOSPITALIZATION. [code = RN TO ASSESS/TEACH, ADVISORY APPLICATION DEVELOPER,TIE CARRIER TO OBSERVE AND TEACH MEASURES FOR RECOVERY AND SELF MANAGEMENT POST HIP REPLACEMENT TO MINIMIZE COMPLICATIONS AND REDUCE RISK OF HOSPITALIZATION.] Future Scheduled Test RN TO ASSE SS/TEACH, ADVISORY APPLICATION DEVELOPER/TIE CARRIER TO OBSERVE/TEACH SURGICAL AFTERCARE MANAGEMENT TO AVOID HOSPITALIZATION. [code = RN TO ASSESS/TEACH, ADVISORY APPLICATION DEVELOPER/TIE CARRIER TO OBSERVE/TEACH SURGICAL AFTERCARE MANAGEMENT TO AVOID HOSPITALIZATION.] Future Scheduled Test RN TO ASSE SS/TEACH, ADVISORY APPLICATION DEVELOPER,TIE CARRIER TO OBSERVE AND TEACH MEASURES FOR SELF-MANAGEMENT POST A SURGICAL HIP REPLACEMENT OR FEMUR FRACTURE TO MINIMIZE COMPLICATIONS AND REDUCE RISK OF HOSPITALIZATION. [code = RN TO ASSESS/TEACH, ADVISORY APPLICATION DEVELOPER,TIE CARRIER TO OBSERVE AND TEACH MEASURES FOR SELF-MANAGEMENT POST A SURGICAL HIP REPLACEMENT OR FEMUR FRACTURE TO MINIMIZE COMPLICATIONS AND REDUCE RISK OF HOSPITALIZATION.] Future Scheduled Test PAIN MANAG EMENT; RN TO ASSESS AND TEACH, TIE CARRIER/ADVISORY APPLICATION DEVELOPER TO OBSERVE AND TEACH AND PROVIDE EDUCATION ON PAIN MANAGEMENT TECHNIQUES. [code = PAIN MANAGEMENT; RN TO ASSESS AND TEACH, TIE CARRIER/ADVISORY APPLICATION DEVELOPER TO OBSERVE AND TEACH AND PROVIDE EDUCATION ON PAIN MANAGEMENT TECHNIQUES.] Future Scheduled Test BLOOD CLOT MANAGEMENT; RN TO ASSESS AND TEACH/ ADVISORY APPLICATION DEVELOPER /TIE CARRIER TO OBSERVE AND TEACH AND PROVIDE EDUCATION ON BLOOD CLOT MANAGEMENT. [code = BLOOD CLOT MANAGEMENT; RN TO ASSESS AND TEACH/ ADVISORY APPLICATION DEVELOPER /TIE CARRIER TO OBSERVE AND TEACH AND PROVIDE EDUCATION ON BLOOD CLOT MANAGEMENT.] Future Scheduled Test FALL REDUC TION MANAGEMENT; RN TO ASSESS AND OBSERVE, ADVISORY APPLICATION DEVELOPER/TIE CARRIER TO OBSERVE FALL RISK FACTORS AND EDUCATE PATIENT/CAREGIVER ON STRATEGIES TO MINIMIZE THE RISK OF FALLING. [code = FALL REDUCTION MANAGEMENT; RN TO ASSESS AND OBSERVE, ADVISORY APPLICATION DEVELOPER/TIE CARRIER TO OBSERVE FALL RISK FACTORS AND EDUCATE [...] TO EVALUATE, OBSERVE / ASSESS, AND MONITOR, COMBAT CONTROL TO OBSERVE AND MONITOR, PROVIDE SKILLED THERAPEUTIC INTERVENTION, ACTIVITY, EDUCATION, AND TRAINING TO ADDRESS; PT/COMBAT CONTROL TO PROVIDE GAIT TRAINING FOR IMPROVED MOBILITY AND /OR TO NORMALIZE GAIT PATTERN THERAPEUTIC EXERCISES AND ESTABLISHING A HOME EXERCISE PROGRAM (PT/COMBAT CONTROL) PT/COMBAT CONTROL TO PROVIDE STAIR TRAINING BED TRANSFERS (PT/COMBAT CONTROL) SIT TO/FROM STAND TRANSFERS (PT/COMBAT CONTROL) PT / COMBAT CONTROL TO MONITOR AND EDUCATE ON OXYGEN SATURATION DURING ADLS/IADLS, NOTIFY PHYSICIAN AND/OR THE RN CLINICAL PUMP OPERATOR BYPRODUCTS FOR PHYSICIAN NOTIFICATION AND IF O2 SATS BELOW PHYSICIAN ORDERED PARAMETERS AFTER 10 MIN OF REST PT / COMBAT CONTROL TO EDUCATE ON HIP REPLACEMENT SELF-MANAGEMENT PT/COMBAT CONTROL TO IDENTIFY FALL RISK FACTORS; EDUCATE THE PATIENT/CAREGIVER ON WAYS TO REDUCE FALL RISK FACTORS AND ESTABLISH HOME EXERCISE PROGRAM TO MINIMIZE FALL RISK. MAY TEACH THE PATIENT FLOOR RECOVERY WHEN CLINICALLY APPROPRIATE PT / COMBAT CONTROL MAY EDUCATE ON PAIN MANAGEMENT CLINICALLY INDICATED, INCLUDING NON-PHARMACOLOGICAL PAIN REDUCTION TECHNIQUES. [code = AGENCY MAY PERFORM A RESUMPTION OF CARE VISIT FOLLOWING ANY HOSPITAL ADMISSION. PT TO EVALUATE, OBSERVE / ASSESS, AND MONITOR, COMBAT CONTROL TO OBSERVE AND MONITOR, PROVIDE SKILLED THERAPEUTIC INTERVENTION, ACTIVITY, EDUCATION, AND TRAINING TO ADDRESS; PT/COMBAT CONTROL TO PROVIDE GAIT TRAINING FOR IMPROVED MOBILITY AND /OR TO NORMALIZE GAIT PATTERN THERAPEUTIC EXERCISES AND ESTABLISHING A HOME EXERCISE PROGRAM (PT/COMBAT CONTROL) PT/COMBAT CONTROL TO PROVIDE STAIR TRAINING BED TRANSFERS (PT/COMBAT CONTROL) SIT TO/FROM STAND TRANSFERS (PT/COMBAT CONTROL) PT / COMBAT CONTROL TO MONITOR AND EDUCATE ON OXYGEN SATURATION DURING ADLS/IADLS, NOTIFY PHYSICIAN AND/OR THE RN CLINICAL PUMP OPERATOR BYPRODUCTS FOR PHYSICIAN NOTIFICATION AND IF O2 SATS BELOW PHYSICIAN ORDERED PARAMETERS AFTER 10 MIN OF REST PT / COMBAT CONTROL TO EDUCATE ON HIP REPLACEMENT SELF-MANAGEMENT PT/COMBAT CONTROL TO IDENTIFY FALL RISK FACTORS; EDUCATE THE PATIENT/CAREGIVER ON WAYS TO REDUCE FALL RISK FACTORS AND ESTABLISH HOME EXERCISE PROGRAM TO MINIMIZE FALL RISK. MAY TEACH THE PATIENT FLOOR RECOVERY WHEN CLINICALLY APPROPRIATE PT / COMBAT CONTROL MAY EDUCATE ON PAIN MANAGEMENT CLINICALLY INDICATED, [...] 2025-04-10 00:00:00 2025-06-08 00:00:00 Outpatient [place] MOR[facility] [id number] 20.83
== END 2025-04-17 14:47 | disposition home or self-care (01) ==
LOC: HO.HOS 14:01
PROVIDERS: Visit Provider Physician Assistant
DX: M97.02XA Periprosthetic fracture around internal prosthetic left hip joint, initial encounter (principal)
CPT/HCPCS: 99024

== ENCOUNTER → 2025-04-17 14:04 | Outpatient (BNV) | payer MEDICARE, SELFPAY | PROVIDERS: Visit Provider Radiology Diagnostic Radiology | DX: Z96.642 Presence of left artificial hip joint (principal) | CPT/HCPCS: 73502 ==

== ENCOUNTER 2025-05-15 13:00 | Outpatient (REF) | payer MEDICARE, SELFPAY ==
--- NOTE | ~2025-05-15 | XR_ITS ---
EXAMINATION: XR PELVIS 1-2 VIEWS HISTORY: M25.559 - Pain in unspecified hip COMPARISON: Comparison is made with the prior examination dated 04/01/2025. FINDINGS: Two views of the pelvis is submitted. Bones are osteopenic. The patient is status post left total hip arthroplasty. The distal portion of the femoral stem component is excluded. Alignment is anatomic and these AP views. An additional plate and multiple cerclage wires are again noted. There is no fracture or dislocation. The right hip joint space is maintained. The patient is status post lower lumbar fusion with pedicle screws and spinal stabilization rods. XR/XR pelvis 1-2V IMPRESSION: Status post left total hip arthroplasty. Electronically signed by: David uBtt MD 05/15/2025 02:34 PM EDT
--- OUTSIDE RECORDS SUMMARY | 2025-05-15 16:12 | XMS_ITS | Clinical Summary ---
Author Organization [facility] Address [address] [place] [address] Care Team Providers Care Central Supply Assistant Name Role Phone Billy Floyd MD Primary Care Provider [phone] [phone] Allergies Active Allergy Reactions Criticality Noted Date [...] 1949 DTaP/Tdap/Td Vaccines (1 - Tdap) 1968 Pneumococcal Vaccines 50+ (1 of 1 - PCV) 1999 Zoster (Shingles) Vaccine (1 of 2) 1999 DXA Bone Density (Females,Ag es 65 and older) 2014 RSV Vaccine 50 years and old er and Patients (1 - 1-dose 75+ series) 2024 Influenza Vaccine 02/21/2025 05/16/2006 COVID-19 Vaccine ( - 2023-2 5 season) 2025 Hepatitis B Vaccines Aged Out No long er eligible based on patient's age to complete this topic Medical Devices Implanted Type Area Seat Cover Cutter Device Identifier Shelf Expiration Date Model / Serial / Lot 7-13 Rise 8mm Cage Implanted:Qt y: 1 on 02/06/2018 by Shemar Small MD at [facility] Cage N/A: Spine Lumbar [employer] 193.001 / / 35mm Deangelo Implanted:Qt y: 1 on 02/06/2018 by Shemar Small MD at [facility] Nail/Deangelo N/A: Spine Lumbar [employer] [id number] / / 40mm Deangelo Implanted:Qt y: 1 on 02/06/2018 by Shemar Small MD at [facility] Nail/Deangelo N/A: Spine Lumbar [employer] [id number] / / 6.5 X 55mm Voyager Screw Implanted:Qt y: 1 on 02/06/2018 by Shemar Small MD at [facility] Screw N/A: Spine Lumbar [employer] [id number] / / 6.5 X 50mm Voyager Screw Implanted:Qt y: 1 on 02/06/2018 by Shemar Small MD at [facility] Screw N/A: Spine Lumbar [employer] [id number] / / 6.5 X 45mm Voyager Screw Implanted:Qt y: 2 on 02/06/2018 by Shemar Small MD at [facility] Screw N/A: Spine Lumbar [employer] [id number] / / Fibrinet Implanted:Qt y: 1 on 02/06/2018 by Shemar Small MD at [facility] Tissue N/A: Spine Lumbar Other 03/20/2018 [id number] / / [id number] Insurance MEDICARE PART A & B [facility] Advance Directives * Full Code (Latest Code Status on File) Date Activated Date Inactivated Comments 02/06/2018 3:26 PM Care Teams Central Supply Assistant Relationship Specialty Start Date End Date Billy Floyd MD [address] [address] PCP - General Internal Medicine 01/30/18
--- OUTSIDE RECORDS SUMMARY | 2025-05-15 16:12 | XMS_ITS | Data Portability ---
Author Organization ID - Edaurd Carr Maramiro [facility], [facility] Address [address] [place] [address] Assessment Encounter Date Assessment Date Assessment LastModified [...] well aligned, and located. There is good mandaen of leg length and offset without loosening [...] she has any other questions or concerns [email or web address] Not available 02/06/2025 15:47:42 Plan of Treatment [...] [facility], [address], [address], [place], [address], 5 10:05:58 XR, hip + pelvis, unilater al, 2 or 3 view 2023 024 [email or web address] Not available 4 08:47:27 XR, lumbar spine 2023 024 [email or web address] [facility] Office, [address], [address], [place], [address], 4 08:47:28 Medication Orders None recorded . [...] a4ajBk vP9nXo QUaueC m3YtLR FvZlgJ JJ8mAn HZtai3 [id number] AC0Kla XWDV6G uKiQtr MwF INTERFACE [facility] [address], [place], [address], 02/06/2025 14:21:46 02/07/20 25 02/06/2025 XR, hip + pelvi s, unila teral , 2 or 3 view http:/ [email or web address] ?Encry pted=s hAaTro YD8dLq bEUv6g %2BXZw aYqtaq 0bqfl% 2Fg9IQ a4ajBk vP9nXo QUaueC m3YtLR FvZlgJ JJ8mAn HZtai3 7m1575 AC0Kla XWDV6G uKiQtr MwF INTERFACE [facility] Office [address], [place], [address], 02/06/2025 14:21:47 Result Notes Documentation Provider Name and Address Organization Details Recorded Time Xr, Hip + Pelvis, Unilateral, 2 Or 3 View : [email or web address] Encrypted=pwYwBqpIP5sUiuJ Uv6g%6YZUulLqrtj7ageu%2Fg 7OAy1guMbiI8oXcONizmSo1Ub UMKrZyyZRG3qPaERrkx23s780 7HL9NscBIIA5LxMzZlsFmJ Not Available [facility] 02/06/2025 14:21: 47 Xr, Hip + Pelvis, Unilateral, 2 Or 3 View : [email or web address] Encrypted=apDcXueGV3wEisW Uv6g%1YANyqUuqpk9fxrb%2Fg 1QTd5vvPorE3iIcTZtihAh8Ia QKVdDjiQCE2aVtXCgwe31w134 2KQ4NniYOTS4TdHpDloAnX Not Available [facility] 02/06/2025 14:21: 48 Problems Name Problem SNOMED Code Status Onset Date Resolution Date Notes Provider Name and Address Organization Details Recorded Time History of repair of hip joint 340120523 Active 025 Brando Li MD [address], [place], [address], [facility] 5 15:47:41 Problem Notes None recorded. Procedures Surgical History Date Name Laterality Status Provider Name and Address Organization Details Recorded Time 4 Knee Kenalog 40mg 2cc Injection, L/R completed Fidencio Sesay PA-C [address], [place], [address], [facility] 01/11/2024 16:06:28 4 Hip Kenalog Injection, L/R w/US completed Fidencio Sesay PA-C [address], [place], [address], [facility] 01/11/2024 16:07:03 4 Knee Joint(s)/Bursa( e) Aspiration Kenalog 2cc completed Fidencio Sesay PA-C [address], [place], [address], [facility] 10/05/2023 10:46:32 4 Hip Joint/Bursa Aspiration completed Fidencio Sesay PA-C [address], [place], [address], [facility] 10/05/2023 10:48:03 Imaging Results None recorded. Procedure Notes None recorded. Medical Equipment None Reported. Allergies Allergen ID Allergen Name Allergen Category Reaction Reaction Severity Criticality Documentation Date Start Date Code Code System Note Provider Name and Address Organization Details Recorded Time 53202 Cephalosp salty (substanc e) medicatio n Not available Not available Not available 09/25/20232017 04456 7003 SNOMED Not Available [facility] 14:03:39 Medications Name Sig Start Date Stop [...] Updated DateTime 10/05/2023 167.64 cm 25 kg/m2 85033.82 g Fidencio Sesay PA-C [address], [place], [address], [facility] 10/05/2023 09:47:57 Date Recorded Body height Body mass index (BMI) Body weight Provider Name and Address Organization Details Last Updated DateTime 01/11/2024 167.64 cm 25 kg/m2 57903.82 g Fidencio Sesay PA-C [address] [facility] [address], [facility] [address] 01/11/2024 15:44:41 Date Recorded Body height Body mass index (BMI) Body weight Provider Name and Address Organization Details Last Updated DateTime 02/06/2025 167.64 cm 26.3 kg/m2 27076.56 g Brando Li MD [address], [place], [address], [facility] 02/06/2025 14:02:08 Social History None recorded. Functional Status None recorded. Mental Status None recorded. Family History Nothing Reported. Medical History Condition Response Allergies/Hayfever N Coronary Artery Disease N Anxiety/Depression N Breathing or lung disorders N Emphysema N Nerve Disorders N Thyroid Problems N COPD N Pacemaker N Anemia N Kidney/Bladder Problems N Vascular Disease N Heart Trouble N Heart Attack ([place]) N Gastrointestinal Disease N Cholesterol N Diabetes [...] ICD10 Code Diagnosis IMO Codes Diagnosis Note [id number] JORGE Jama [address] [place] [address] 10/05/2023 09:32:36 10/05/2023 11:41:43 Pain of left hip joint 6416061210 27116 M25.552 Osteoarthr itis of left knee joint 9009158482 46281 M17.12 Osteoarthr itis of left hip joint 3500671878 64338 M16.12 [id number] JORGE Jama 2[address] [place] [address] 01/11/2024 15:34:51 02/09/2024 12:18:07 Osteoarthritis of left knee joint 8888761469 44757 M17.12 Osteoarthr itis of left hip joint 0868459951 73732 M16.12 [id number] MD TAZ Blanco 2nd floor [address] [place] [address] 02/06/2025 13:56:38 02/14/2025 10:05:58 Pain of hip region 97693441 M25.552 [id number] History of repair of hip joint 035883316 Z98.890 [id number] Health Concerns Section Related Observation LastModified by Organization Detai ls LastModified Time None Recorded Concern Status LastModified by Organization Details LastModified Time None Recorded Advance Directives Directive None Recorded Payers Insurance Date Sequence Insurance Name Policy Number Policy Gallegos Covered Member ID Gallegos Member ID Guarantor Name 02/06/2025 1 [place] [employer] Courtney S Jonnathan [id number] Courtney Jonnathan 02/14/2025 2 [employer] (MEDICARE SUPPLEMENT) Courtney Jonnathan [id number] Courtney Jonnathan Notes Date Note Type Note [...] normal limits.X-rays ordered, obtained and reviewed at [facility] 2 views of the left hip reviewed [...] Sesay PA-C [address], [place], [address], [facility] 10/05/2023 10:48:52 01/11/2024 text/html [...] knee is just about full extension and qreczbj-djvs-aoq and 20 Peripheral, vascular, lymphatic examination, skin, [...] knee under sterile conditions. Fidencio Sesay PA-C [address] [place], [place] [address] [address], [place], [address], [facility] 01/11/2024 16:07:50 02/06/2025 text/html ROS as noted in the HPI History of present illness:Courtney presents today for second opinion evaluation of her left hip. She had her left hip replaced by Dr. Donato at [facility], she states that 48 hours after her [...] patient s chart. Brando Li MD [address], [place], [address], [facility] 02/06/2025 15:47:49 OBGyn Episode No OBEpisode recorded.
--- OUTSIDE RECORDS SUMMARY | 2025-05-15 16:12 | XMS_ITS | Clinical Summary ---
Author Organization [facility] Address [address] [place] [address] Phone Care Team Providers Care Perinatal Instructor Name Role Phone Billy Floyd MD Primary Care Provider [phone] Allergies Active Allergy Reactions Criticality Noted Date Comments Itraconazole Other High 04/02/2025 Medications solifenacin (VESICARE) 5 mg tablet Take 1 tablet (5 mg total) by mouth 1 (one) time each day. Swallow tablet whole; do not crush, chew, or split. 5 Active atorvastatin (LIPITOR) 10 mg tablet Take 1 tablet (10 mg total) by mouth at bedtime. 30 each 5 Active buPROPion XL (WELLBUTRIN XL) 150 mg 24 hr tablet Take 1 tablet (150 mg total) by mouth 1 (one) time each day. Do not crush, chew, or split. 30 each 5 Active FLUoxetine (PROzac) 40 mg capsule Take 1 capsule (40 mg total) by mouth 1 (one) time each day. 30 each 5 Active cholecalciferol (VITAMIN D-3) 10 mcg (400 unit) tablet Take 1 tablet (400 Units total) by mouth 1 (one) time each day. 30 each 5 04/09/20 26 Active senna (SENOKOT) 8.6 mg tablet Take 2 tablets (17.2 mg total) by mouth at bedtime. 60 each 5 04/08/20 26 Active acetaminophen (TYLENOL) 325 mg tablet Take 2 tablets (650 mg total) by mouth every 6 (six) hours if needed for mild pain or fever - temperature GREATER than 38 C (100.4 F). 30 tablet 5 05/08/20 25 docusate sodium (COLACE) 100 mg capsule Take 1 capsule (100 mg total) by mouth 2 (two) times a day. 60 each 5 05/08/20 25 enoxaparin (LOVENOX) 40 mg/0.4 mL syringeIndicati ons:deep vein thrombosis prevention Inject 0.4 mL (40 mg total) under the skin 1 (one) time each day at the same time. 30 each 5 05/08/20 25 oxyCODONE (ROXICODONE) 5 mg immediate release tablet Take 1 tablet (5 mg total) by mouth every 4 (four) hours if needed for moderate pain for up to 7 days. 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 04/02/2025 Encounters Date Type Department Care Team Description 04/07/2025 Plan of Care Documentation [facility] [address] [place] [address] 04/02/2025 5:37 PM EDT - 04/09/2025 12:20 PM EDT Hospital Encounter [facility] [address] [place] [address] Benita Borrero, DO Discharge Disposition: Home-Health Care [facility] from Last 3 Months Medical History Medical [...] Safety Answer Date Record ed Physical Abuse Unrecognized value 04/02/2025 Verbal Abuse Unrecognized value 04/02/2025 Comments Unknown Sex and Gender Information [...] Zoster Vaccines (3 of 3) 06/19/2020 04/24/2020, 01/2012 RSV Immunization Adult Patients (1 - 1-dose [...] microscopic and culture (04/05/2025 1:05 PM EDT) [facility] Specific [place] Urine 1.013 1.003 - 1.030 LAB URINALYSIS [...] - AUTOMATED METHOD 04/05/2025 1:32 PM EDT [facility] RBC, Urine 2.0 0 - 4 /HPF LAB URINALYSIS - AUTOMATED METHOD 04/05/2025 1:32 PM EDT [facility] WBC, Urine 1.1 0 - 4 /HPF LAB URINALYSIS - AUTOMATED METHOD 04/05/2025 1:32 PM EDT [facility] Squamous Epithelial, Urine 10 0 - 60 /LPF LAB URINALYSIS - AUTOMATED METHOD 04/05/2025 1:32 PM EDT [facility] Bacteria, Urine Negative Negative /HPF LAB URINALYSIS - AUTOMATED METHOD 04/05/2025 1:32 PM EDT [facility] Hyaline Casts, Urine 0.0 0 - 3 /LPF LAB URINALYSIS - AUTOMATED METHOD 04/05/2025 1:32 PM EDT [facility] Urine Urine specimen obtained by clean catch procedure / Unknown Non-blood Collection / Unknown 04/05/2025 1:05 PM EDT 04/05/2025 1:12 PM EDT [facility] URINE ORDERABLES Final R esult Performing Organization Address City/[facility] Co de Phone Number [facility] [address] [place] [address], * [facility] urine culture tube (04/05/2025 1:05 PM EDT) Extra Tube Hold for add-ons. 04/05/2025 3:01 PM EDT [facility] Comment:Auto resulted. Urine Urine specimen obtained by clean catch procedure / Unknown Non-blood Collection / Unknown 04/05/2025 1:05 PM EDT 04/05/2025 1:12 PM EDT us Loraine [facility] LAB URINE ORDERABLES Final R esult [facility] [address] [place] [address], [place] [phone] * Culture urine (04/05/2025 1:05 PM EDT) [facility] Culture, Urine No growth 04/06/2025 7:24 AM EDT [facility] Urine Urine specimen obtained by clean catch procedure / Unknown Non-blood Collection / Unknown 04/05/2025 1:05 PM EDT 04/05/2025 1:32 PM EDT [facility] MICROBIOLOGY - GENERAL O RDERABLES Final Result Performing Organization Address [facility]/ZIP Co de Phone Number [facility] [address] [place] [address], [place] [phone] * (ABNORMAL) CBC auto differential (04/03/2025 5:18 AM EDT) [facility] WBC 11.6(H) 4.8 - 10.8 K/mcL LAB HEMETOLOGY METHOD 04/03/2025 5:46 AM EDT [facility] RBC 2.80(L) 3.80 - 4.80 M/mcL LAB HEMETOLOGY METHOD 04/03/2025 5:46 AM EDT [facility] Hemoglobin 8.4(L) 11.5 - 16.0 g/dL LAB HEMETOLOGY METHOD 04/03/2025 5:46 AM EDT [facility] Hematocrit 26.4(L) 35.0 - 47.0 % LAB HEMETOLOGY METHOD 04/03/2025 5:46 AM EDT [facility] MCV 95.3 79.0 - 98.0 FL LAB HEMETOLOGY METHOD 04/03/2025 5:46 AM EDT [facility] MCH 30.3 27.0 [...] LAB HEMETOLOGY METHOD 04/03/2025 5:46 AM EDT [facility] Lymphocytes Absolute 1.85 1.00 - 5.00 K/[facility] LAB HEMETOLOGY METHOD 04/03/2025 5:46 AM EDT [facility] Monocytes Absolute 1.21(H) 0.20 - 1.00 K/[facility] LAB HEMETOLOGY METHOD 04/03/2025 5:46 AM EDT [facility] Eosinophils Absolute 0.42 0.00 - 0.50 K/[facility] LAB HEMETOLOGY METHOD 04/03/2025 5:46 AM EDT [facility] Basophils Absolute 0.07 0.00 - 0.20 K/[facility] LAB HEMETOLOGY METHOD 04/03/2025 5:46 AM EDT [facility] Immature Granulocytes Absolute 0.04(H) 0.00 - 0.03 K/[facility] LAB HEMETOLOGY METHOD 04/03/2025 5:46 AM EDT [facility] Blood Venous blood specimen / Unknown Venipuncture / Unknown 04/03/2025 5:18 AM EDT 04/03/2025 5:37 AM EDT us Krishan Shafer [facility] LAB BLOOD ORDERABLES Final Res ult [facility] [address] [place] [address], * (ABNORMAL) Iron (04/03/2025 5:18 AM EDT) Iron 11(L) 40 - 150 mcg/dL LAB CHEMISTRY METHOD 04/04/2025 12:56 PM EDT [facility] Blood Venous blood specimen / Unknown Venipuncture / Unknown 04/03/2025 5:18 AM EDT 04/03/2025 5:37 AM EDT us Loraine ASHFORD LAB BLOOD ORDERABLES Final R esult Performing Organization Address City/[facility]/ZIP Co de Phone Number [facility] [address] [place] [address], [place] [phone] * Ferritin (04/03/2025 5:18 AM EDT) Pathologist [facility] Ferritin 221 8 - 252 ng/mL LAB CHEMISTRY METHOD 04/04/2025 12:33 PM EDT [facility] Blood Venous blood specimen / Unknown Venipuncture / Unknown 04/03/2025 5:18 AM EDT 04/03/2025 5:37 AM EDT Loraine ASHFORD LAB BLOOD ORDERABLES Final R esult Performing Organization Address [facility]/ZIP Co de Phone Number [facility] [address] [place] [address], [place] [phone] * (ABNORMAL) Comprehensive metabolic panel (04/03/2025 5:18 AM EDT) [facility] Sodium 140 133 - 145 mmol/L LAB CHEMISTRY METHOD 04/03/2025 6:18 AM T [facility] Potassium 4.0 3.5 - 5.5 mmol/L LAB CHEMISTRY METHOD 04/03/2025 6:18 AM T [facility] Chloride 107 96 - 110 mmol/L LAB CHEMISTRY METHOD 04/03/2025 6:18 AM T [facility] CO2 29 21 - 32 mmol/L LAB CHEMISTRY METHOD 04/03/2025 6:18 AM EDT [facility] Anion Gap 4 3 - 11 LAB CHEMISTRY METHOD 04/03/2025 6:18 AM [facility] Glucose 90 70 - 100 mg/dL LAB CHEMISTRY METHOD [facility] BUN 18 5 - 25 [...] EDT 04/03/2025 5:37 AM EDT us Krishan T Coffin [facility] LAB BLOOD ORDERABLES Final Res ult [facility] [address] [place] [address], from Last 3 Months Insurance MEDICARE [facility] Advance Directives Documents on File Type Date Recorded Patient Ship Joiner Expl anation Health Care Decision (hx) 05/13/2024 [...] currently active code status orders. Care Teams Perinatal Instructor Relationship Specialty Start Date End Date Billy Floyd MD [address] [facility] [address] [place], [place] PCP - General Internal Medicine 04/03/25
== END 2025-05-15 13:01 | disposition home or self-care (01) ==
LOC: HO.HOSX 13:00
PROVIDERS: Visit Provider Orthopaedic Surgery
DX: Z47.1 Aftercare following joint replacement surgery (principal); Z98.890 Other specified postprocedural states; Z87.81 Personal history of (healed) traumatic fracture; M25.552 Pain in left hip
CPT/HCPCS: 72170; 99212

== ENCOUNTER 2025-05-15 13:56 | Outpatient (AMB) | payer MEDICARE, SELFPAY ==
--- NOTE | 2025-05-15 14:26 | MHC.OFFVIS ---
Intake Visit Reasons: 6WKPO: L SAM Rev. w/NE 04/01/25 Intake Note: Courtney is a 75 year old female who presents today for a post operative appointment about 6 weeks s/p L SAM Revision w/NE 04/01/25. At her last visit she was instructed to remain toe touch weightbearing. Patient reports that she is feeling frustrated as the last 6 weeks were tow touch weight bearing so she was unable to start physical therapy. She would like to start physical therapy. She notes that when she starts to weight bear she feels the distal aspect of the incision pushes out. Allergies itraconazole (From Sporanox) Allergy (Severe, Verified 04/17/25 14:20) Facial Swelling, throat swelling HPI HPI 6WKPO: L SAM Rev. w/NE 04/01/25: Details: Courtney is a 75 year old female who presents today for a post operative appointment about 6 weeks s/p L SAM Revision w/NE 04/01/25. At her last visit she was instructed to remain toe touch weightbearing. Patient reports that she is feeling frustrated as the last 6 weeks were tow touch weight bearing so she was unable to start physical therapy. She would like to start physical therapy. She states she feels well and better than before surgery but still wants to do more. Occasionally has difficulty with extended standing or extended sitting. [facility] Medical History COVID-19 Hx of transfusion of packed red blood cells Anemia DVT (deep venous thrombosis) Hx of malignant neoplasm of kidney Fracture neck of femur Suicide attempt Elevated blood pressure reading in office without diagnosis of hypertension Solitary lung nodule Fatigue Scoliosis of lumbar spine Osteopenia Osteoporosis Panniculitis Pes anserinus bursitis Lumbosacral radiculitis Lumbar spondylosis Degeneration of lumbar intervertebral disc Spinal stenosis of lumbar region Piriformis syndrome Allergic rhinitis Carpal tunnel syndrome Migraine Insomnia Hyperlipidemia Vitamin D deficiency Arthritis of left hip Depression Anxiety Arthritis Fatty liver Osteoarthritis Back pain GERD (gastroesophageal reflux disease) History of blood transfusion (~2000) History of kidney cancer Surgical History Hx of surgical procedure History of esophagogastroduodenoscopy (EGD) History of revision of total hip arthroplasty Hx of unilateral oophorectomy History of total left hip arthroplasty History of nephrectomy, left (~2005) History of pubovaginal sling Hx of colonoscopy Hx of tubal ligation Hx of ovarian cystectomy History of back surgery Hx of right knee surgery History of left knee surgery History of hysterectomy H/O bilateral breast biopsy Hx of appendectomy (~1966) Social History Household Members: Spouse Housing: House Are you a primary aged or disabled care worker to a significant other at home: No Do you presently have visiting nurse or other home services: No 75 years or older and lives alone: No Alcohol intake: never Patient Tobacco Use Status: Former Tobacco user Tobacco use type: Cigarette service: No Physical Exam Exam Exam: No acute distress. Incision clean dry and intact. No pain with hip range of motion. Walking comfortably with a walker and partial weight-bearing left lower extremity. Results Reviewed Results Reviewed: I personally reviewed relevant radiographs. Unchanged appearance status post claw plate placement proximal left femur. Assessment & Plan Assessment & Plan (1) Status post-operative repair of closed fracture of left hip: Code(s): Z98.890 - Other specified postprocedural states; Z87.81 - Personal history of (healed) traumatic fracture Category: Surgical Plan: Six weeks status post revision ORIF of a greater trochanteric periprosthetic fracture. No hardware complications and she feels well. She may progress to partial weight-bearing to max out at 50% body weight with a walker. I discussed the importance of gentle ambulation only. I will see her back in 6 weeks' time. Orders: Orders XR pelvis 1-2V Today M25.559 - Pain in unspecified hip Coding Level of Care Code Global (50089) Diagnoses Status post-operative repair of closed fracture of left hip Z98.890; Z87.81
--- OUTSIDE RECORDS SUMMARY | 2025-05-15 17:50 | XMS_ITS | Data Portability ---
Author Organization [place] - Eduard Carr [facility] Address [address] [place] [address] Assessment Encounter Date Assessment Date Assessment LastModified [...] well aligned, and located. There is good anabaptism of leg length and offset without loosening [...] she has any other questions or concerns [email or web address] Not available 02/06/2025 15:47:42 Plan of Treatment [...] [facility], [address], [address], [place], [address], 5 10:05:58 XR, hip + pelvis, unilater al, 2 or 3 view 2023 024 Not available 4 08:47:27 XR, lumbar spine 2023 024 [email or web address] [facility], [address], [address], [place], [address], 4 08:47:28 Medication Orders None recorded . [...] a4ajBk vP9nXo QUaueC m3YtLR FvZlgJ JJ8mAn HZtai3 2j3546 AC0Kla XWDV6G uKiQtr MwF INTERFACE [facility] [address], [place], [address], 02/06/2025 14:21:46 02/07/20 25 02/06/2025 XR, hip + pelvi s, unila teral , 2 or 3 view http:/ [email or web address] ?Encry pted=s hAaTro YD8dLq bEUv6g %2BXZw aYqtaq 0bqfl% 2Fg9IQ a4ajBk vP9nXo QUaueC m3YtLR FvZlgJ JJ8mAn HZtai3 2u7215 AC0Kla XWDV6G uKiQtr MwF INTERFACE [facility] [address], [place], [address], 02/06/2025 14:21:47 Result Notes Documentation Provider Name and Address Organization Details Recorded Time Xr, Hip + Pelvis, Unilateral, 2 Or 3 View : [email or web address] Encrypted=liGhYxvLJ2qJocT Uv6g%5VDRavYoivm2asbl%2Fg 3SIe8cgCbcP8mAcYKdwaGf0Zp TYSaFnxAAB4gLiLGeee00p725 3JS9AobSBDZ4ZtAuSbvYaJ Not Available [facility] 02/06/2025 14:21: 47 Xr, Hip + Pelvis, Unilateral, 2 Or 3 View : [email or web address] Encrypted=sxBlWewAL5hSqaQ Uv6g%5RWGrnWgszj1jnvh%2Fg 3YZc7cjLobF7gJfUXaymOz5Xe SLKtJquPWI1fOhTYwgu23e075 9UH2BovKZRE4DjYqRynAhW Not Available [facility] 02/06/2025 14:21: 48 Problems Name Problem SNOMED Code Status Onset Date Resolution Date Notes Provider Name and Address Organization Details Recorded Time History of repair of hip joint 686683821 Active 025 Brando Li MD [address], [place], [address], [facility] 5 15:47:41 Problem Notes None recorded. Procedures Surgical History Date Name Laterality Status Provider Name and Address Organization Details Recorded Time 4 Knee Kenalog 40mg 2cc Injection, L/R completed Fidencio Sesay PA-C [address], [place], [address], [facility] 01/11/2024 16:06:28 4 Hip Kenalog Injection, L/R w/US completed Fidencio Sesay PA-C [address], [place], [address], [facility] 01/11/2024 16:07:03 4 Knee Joint(s)/Bursa( e) Aspiration Kenalog 2cc completed Fidencio Sesay PA-C [address], [place], [address], [facility] 10/05/2023 10:46:32 4 Hip Joint/Bursa Aspiration completed Fidencio Sesay PA-C [address], [place], [address], [facility] 10/05/2023 10:48:03 Imaging Results None recorded. Procedure Notes None recorded. Medical Equipment None Reported. Allergies Allergen ID Allergen Name Allergen Category Reaction Reaction Severity Criticality Documentation Date Start Date Code Code System Note Provider Name and Address Organization Details Recorded Time 08526 Cephalosp salty (substanc e) medicatio n Not available Not available Not available 09/25/20232017 36817 7003 SNOMED Not Available [facility] 14:03:39 Medications Name Sig Start [...] Updated DateTime 10/05/2023 167.64 cm 25 kg/m2 05607.82 g Fidencio Sesay PA-C [address], [place], [address], [facility] 10/05/2023 09:47:57 Date Recorded Body height Body mass index (BMI) Body weight Provider Name and Address Organization Details Last Updated DateTime 01/11/2024 167.64 cm 25 kg/m2 71904.82 g Fidencio Sesay PA-C [address] [facility] [address] [facility] [address] 01/11/2024 15:44:41 Date Recorded Body height Body mass index (BMI) Body weight Provider Name and Address Organization Details Last Updated DateTime 02/06/2025 167.64 cm 26.3 kg/m2 01313.56 g Brando Li MD [address], [place], [address], [facility] 02/06/2025 14:02:08 Social History None recorded. Functional Status None recorded. Mental Status None recorded. Family History Nothing Reported. Medical History Condition Response Allergies/Hayfever N Coronary Artery Disease N Anxiety/Depression N Breathing or lung disorders N Emphysema N Nerve Disorders N Thyroid Problems N COPD N Pacemaker N Anemia N Kidney/Bladder Problems N Vascular Disease N Heart Trouble N Heart Attack (OR) N Gastrointestinal Disease N Cholesterol N Diabetes [...] ICD10 Code Diagnosis IMO Codes Diagnosis Note [id number] JORGE Jama [address] [place] [address] 10/05/2023 09:32:36 10/05/2023 11:41:43 Pain of left hip joint 0858958670 61787 M25.552 Osteoarthr itis of left knee joint 6449964833 51845 M17.12 Osteoarthr itis of left hip joint 7116877196 21435 M16.12 [id number] JORGE Jmaa [address] [place] [address] 01/11/2024 15:34:51 02/09/2024 12:18:07 Osteoarthritis of left knee joint 1716862819 94402 M17.12 Osteoarthr itis of left hip joint 6499501951 82235 M16.12 [id number] MD TAZ Blanco [address] [place] [address] 02/06/2025 13:56:38 02/14/2025 10:05:58 Pain of hip region 53488594 M25.552 [id number] History of repair of hip joint 567692528 Z98.890 [id number] Health Concerns Section Related Observation LastModified by Organization Detai ls LastModified Time None Recorded Concern Status LastModified by Organization Details LastModified Time None Recorded Advance Directives Directive None Recorded Payers Insurance Date Sequence Insurance Name Policy Number Policy Gallegos Covered Member ID Gallegos Member ID Guarantor Name 02/06/2025 1 [place] [employer] Courtney S Jonnathan [id number] Courtney Jonnathan 02/14/2025 2 [employer] (MEDICARE SUPPLEMENT) Courtney Jonnathan [id number] Courtney Jonnathan Notes Date Note Type Note [...] normal limits.X-rays ordered, obtained and reviewed at [facility] 2 views of the left [...] Sesay PA-C [address], [place], [address], [facility] 10/05/2023 10:48:52 01/11/2024 text/html [...] knee is just about full extension and ffoigpj-czkx-hzk and 20 Peripheral, vascular, lymphatic examination, skin, [...] knee under sterile conditions. Fidencio Sesay PA-C [address] [place], [place] [address] [address], [place], [address], [facility] 01/11/2024 16:07:50 02/06/2025 text/html ROS as noted in the HPI History of present illness:Courtney presents today for second opinion evaluation of her left hip. She had her left hip replaced by Dr. Donato at [facility], she states that 48 hours after her [...] patient s chart. Brando Li MD [address], [place], [address], [facility] 02/06/2025 15:47:49 OBGyn Episode No OBEpisode recorded.
--- OUTSIDE RECORDS SUMMARY | 2025-05-15 17:50 | XMS_ITS | Data Portability ---
Author Organization [facility], Main Office Address [address] [place] [address] Care Team Providers Care Skiver Machine Name Role Phone MAGGY FLOYD Primary Care Provider [facility] Referring Provider ALLEN RUBALCAVA Orthopedic Surgeon [phone] MARTHA PACE Blocklayer JAKE BERNARD Department Store Door Greeter SHARON CASTANEDA Referring Provider [phone] JOSE TEMPLETON Orthopedic Surgeon [phone] Referring Provider ELADIA DUKE [facility] [phone] JJ DONATO Referring Provider OFE AMIN Referring Provider [phone] BETSY NOLASCO Referring Provider Assessment Encounter Date Assessment Date Assessment LastModified by Organization Details LastModified Time 05/09/2024 05/09/2024 This service was provided using telemedicine. Patient consented to video & audio visit Patient was located in the [facility]. Provider was located in the office. [...] to get a second opinion. 2024 025 [facility], [address] [place] [address], [address], 01/06/2025 20:18:56 Procedures None recorded. Surgeries None recorded. Imaging electroca rdiogram 2024 025 [email or web address] In-Office Order, Internal Use Only DO Not Attach Compendium DO Not Attach Compendium, Do Not Delete/merge, [id number] 01/17/2025 12:40:09 MAMMO, screening , bilateral - Perform Diagnosti c Mammogram and Breast Ultrasoun d if needed / Perform Ultrasoun d Guided Aspiratio n and/or Breast Biopsy if warranted 2024 025 [email or web address] [facility], [address] [place] [address], [address], 12/13/2024 13:51:12 Medication Orders zolpidem 5 mg tablet 2024 025 [facility], [address] [place], [address], 12/14/2024 08:38:25 calcium 600 mg (as carbonate )-vitamin D3 10 mcg (400 unit) tablet 2023 024 [facility], [address] [place], [address], 10/07/2024 11:18:45 Patient TargetsNo targets recorded. Patient Instructions Encounter Date Encounter Id Patient Instructions Last Modified By Organization Details Last Modified Time 05/07/2024 [id number] I have reviewed the note and agree with the assessment and plan of care. [email or web address] Not available 05/07/2024 11:42:02 05/09/2024 [id number] osteoporosis: care instructions [email or web address] Not available 05/10/2024 [...] medication. [email or web address] Not available 05/09/2024 15:17:45 12/13/2024 [id number] insomnia: care instructions [email or web address] Not available 12/13/2024 [...] /uL 3.4-10 .8 normal Not Available [facility] ([facility]) [address] [place], [address], 10/08/2024 18:05:50 10/08/19 25 10/07/2024 CBC WITH DIFFE RENTI AL/PL ATELE T RBC 4.54 x10e6 /uL 3.77-5 .28 normal Not Available [facility] ([facility]) [address] [place], [address], 10/08/2024 18:05:50 10/08/19 25 10/07/2024 CBC WITH DIFFE RENTI AL/PL ATELE T hemoglobin 13.5 g/dL 11.1-1 5.9 normal Not Available [facility] ([facility]) [address] [place], [address], 10/08/2024 18:05:50 10/08/19 25 10/07/2024 CBC WITH DIFFE RENTI AL/PL ATELE T hematocrit 40.2 % 34.0-4 6.6 normal Not Available [facility] ([facility]) [address] [place], [address], 10/08/2024 18:05:50 10/08/19 25 10/07/2024 CBC WITH DIFFE RENTI AL/PL ATELE T MCV 89 fL 79-97 normal Not Available [facility] ([facility]) [address] [place], [address], 10/08/2024 18:05:50 10/08/19 25 10/07/2024 CBC WITH DIFFE RENTI AL/PL ATELE T MCH 29.7 pg 26.6-3 3.0 normal Not Available [facility] ([facility]) [address] [place], [address], 10/08/2024 18:05:50 10/08/19 25 10/07/2024 CBC WITH DIFFE RENTI AL/PL ATELE T MCHC 33.6 g/dL 31.5-3 5.7 normal Not Available [facility] ([facility]) [address] [place], [address], 10/08/2024 18:05:50 10/08/19 25 10/07/2024 CBC WITH DIFFE RENTI AL/PL ATELE T RDW 13.3 % 11.7-1 5.4 Not Available [facility] ([facility]) [address] [place], [address], 10/08/2024 18:05:50 10/08/19 25 10/07/2024 CBC WITH DIFFE RENTI AL/PL ATELE T platelets 369 x10e3 /uL 150-45 0 normal Not Available [facility] ([facility]) [address] [place], [address], 10/08/2024 18:05:50 10/08/19 25 10/07/2024 CBC WITH DIFFE RENTI AL/PL ATELE T neutrophils 65 % not estab. normal Not Available [facility] ([facility]) [address] [place], [address], 10/08/2024 18:05:50 10/08/19 25 10/07/2024 CBC WITH DIFFE RENTI AL/PL ATELE T lymphs 22 % not estab. normal Not Available [facility] ([facility]) [address] [place], [address], 10/08/2024 18:05:50 10/08/19 25 10/07/2024 CBC WITH DIFFE RENTI AL/PL ATELE T monocytes 9 % not estab. normal Not Available [facility] ([facility]) [address] [place], [address], 10/08/2024 18:05:50 10/08/19 25 10/07/2024 CBC WITH DIFFE RENTI AL/PL ATELE T eos 2 % not estab. normal Not Available [facility] ([facility]) [address] [place], [address], 10/08/2024 18:05:50 10/08/19 25 10/07/2024 CBC WITH DIFFE RENTI AL/PL ATELE T basos 1 % not estab. normal Not Available [facility] ([facility]) [address] [place], [address], 10/08/2024 18:05:50 10/08/19 25 10/07/2024 CBC WITH DIFFE RENTI AL/PL ATELE T immature cells TRAVEL PT Not Available [facility] ([facility]) [address] [place], [address], 10/08/2024 18:05:50 10/08/19 25 10/07/2024 CBC WITH DIFFE RENTI AL/PL ATELE T neutrophils (absolute) 5.3 x10e3 /uL 1.4-7. 0 normal Not Available [facility] ([facility]) [address] [place], [address], 10/08/2024 18:05:50 10/08/19 25 10/07/2024 CBC WITH DIFFE RENTI AL/PL ATELE T lymphs (absolute) 1.8 x10e3 /uL 0.7-3. 1 normal Not Available [facility] ([facility]) [address] [place], [address], 10/08/2024 18:05:50 10/08/19 25 10/07/2024 CBC WITH DIFFE RENTI AL/PL ATELE T monocytes(ab solute) 0.7 x10e3 /uL 0.1-0. 9 normal Not Available [facility] ([facility]) [address] [facility], [place], [address], 10/08/2024 18:05:50 10/08/19 25 10/07/2024 CBC WITH DIFFE RENTI AL/PL ATELE T eos (absolute) 0.2 x10e3 /uL 0.0-0. 4 normal Not Available [facility] ([facility]) [address] [facility], [place], [address], 10/08/2024 18:05:50 10/08/19 25 10/07/2024 CBC WITH DIFFE RENTI AL/PL ATELE T baso (absolute) 0.1 x10e3 /uL 0.0-0. 2 normal Not Available [facility] ([facility]) [address] [place], [address], 10/08/2024 18:05:50 10/08/19 25 10/07/2024 CBC WITH DIFFE RENTI AL/PL ATELE T immature granulocytes 1 % not estab. Not Available [facility] ([facility]) [address] [place], [address], 10/08/2024 18:05:50 10/08/19 25 10/07/2024 CBC WITH DIFFE RENTI AL/PL ATELE T immature grans (abs) 0.1 x10e3 /uL 0.0-0. 1 Not Available [facility] ([facility]) [address] [place], [address], 10/08/2024 18:05:50 10/08/19 25 10/07/2024 CBC WITH DIFFE RENTI AL/PL ATELE T NRBC TRAVEL PT Not Available [facility] ([facility]) [address] [place], [address], 10/08/2024 18:05:50 10/08/19 25 10/07/2024 CBC WITH DIFFE GABI AL/PL ABALE T hematology comments: TRAVEL PT Not Available [facility] ([facility]) [address] [place], [address], 10/08/2024 18:05:50 10/08/19 25 10/07/2024 COMP. METAB OLIC PANEL (14) glucose 108 mg/dL 70-99 above high normal Not Available [facility] ([facility]) [address] [place], [address], 10/08/2024 18:05:51 10/08/19 25 10/07/2024 COMP. METAB OLIC PANEL (14) BUN 18 mg/dL 8-27 normal Not Available [facility] ([facility]) [address] [facility], [place], [address], 10/08/2024 18:05:51 10/08/19 25 10/07/2024 COMP. METAB OLIC PANEL (14) creatinine 1.12 mg/dL 0.57-1 .00 above high normal Not Available [facility] ([facility]) [address] [place], [address], 10/08/2024 18:05:51 10/08/19 25 10/07/2024 COMP. METAB OLIC PANEL (14) eGFR 51 mL/mi n/1.7 3 >59 below low normal Not Available [facility] ([facility]) [address] [place], [address], 10/08/2024 18:05:51 10/08/19 25 10/07/2024 COMP. METAB OLIC PANEL (14) BUN/creatini ne ratio 16 12-28 normal Not Available [facility] ([facility]) [address] [place], [address], 10/08/2024 18:05:51 10/08/19 25 10/07/2024 COMP. METAB OLIC PANEL (14) sodium 139 mmol/ L 134-14 4 normal Not Available [facility] ([facility]) [address] [place], [address], 10/08/2024 18:05:51 10/08/19 25 10/07/2024 COMP. METAB OLIC PANEL (14) chloride 102 mmol/ L 96-106 normal Not Available [facility] ([facility]) [address] [place], [address], 10/08/2024 18:05:51 10/08/19 25 10/07/2024 COMP. METAB OLIC PANEL (14) carbon dioxide, total 19 mmol/ L 20-29 below low normal Not Available [facility] ([facility]) [address] [place], [address], 10/08/2024 18:05:51 10/08/19 25 10/07/2024 COMP. METAB OLIC PANEL (14) calcium 9.6 mg/dL 8.7-10 .3 normal Not Available [facility] ([facility]) [address] [place], [address], 10/08/2024 18:05:51 10/08/19 25 10/07/2024 COMP. METAB OLIC PANEL (14) protein, total 7.1 g/dL 6.0-8. 5 normal Not Available [facility] ([facility]) [address] [place], [address], 10/08/2024 18:05:51 10/08/19 25 10/07/2024 COMP. METAB OLIC PANEL (14) albumin 4.6 g/dL 3.8-4. 8 normal Not Available [facility] ([facility]) [address] [place], [address], 10/08/2024 18:05:51 10/08/19 25 10/07/2024 COMP. METAB OLIC PANEL (14) globulin, total 2.5 g/dL 1.5-4. 5 Not Available [facility] ([facility]) [address] [facility], [place], [address], 10/08/2024 18:05:51 10/08/19 25 10/07/2024 COMP. METAB OLIC PANEL (14) bilirubin, total 0.4 mg/dL 0.0-1. 2 normal Not Available [facility] ([facility]) [address] [place], [address], 10/08/2024 18:05:51 10/08/19 25 10/07/2024 COMP. METAB OLIC PANEL (14) alkaline phosphatase 128 IU/L 44-121 above high normal Not Available [facility] ([facility]) [address] [place], [address], 10/08/2024 18:05:51 10/08/19 25 10/07/2024 COMP. METAB OLIC PANEL (14) AST (SGOT) 19 IU/L 0-40 normal Not Available [facility] ([facility]) [address] [place], [address], 10/08/2024 18:05:51 10/08/19 25 10/07/2024 COMP. METAB OLIC PANEL (14) ALT (SGPT) 11 IU/L 0-32 normal Not Available [facility] ([facility]) [address] [place], [address], 10/08/2024 18:05:51 10/08/19 25 10/08/2024 COMP. METAB OLIC PANEL (14) potassium 4.4 mmol/ L 3.5-5. 2 normal Not Available [facility] ([facility]) [address] [place], [address], 10/08/2024 18:05:51 10/08/19 25 10/08/2024 VITAM IN [...] um and D. Deana nesbitt [place]: [facility] . 2. Soila montalvo [place], Maribell salinas [place], Bisch off-F errar i POSEY, et al. Evalu ation , treat ment, and preve ntion of vitam in D defic iency : an Endoc rine Socie ty clini pantera pract ice guide line. JCEM. 2010; 96(7) :1911 -30. Not Available [facility] ([facility]) [address] [place], [address], 10/08/2024 18:05:52 10/08/19 25 10/08/2024 B-TYP E NATRI URETI C PEPTI DE B-type natriuretic peptide 14.7 pg/mL 0.0-10 0.0 Sieme ns [facility] metho dolog y Not Available [facility] ([facility]) [address] [place], [address], 10/08/2024 18:05:52 10/08/19 25 10/08/2024 TSH RFX ON ABNOR MAL TO FREE T4 TSH 4.210 uIU/m L 0.450- 4.500 normal Not Available [facility] ([facility]) [address] [place], [address], 10/08/2024 18:05:52 12/19/19 25 12/19/2024 LIPID PANEL cholesterol, total 239 mg/dL 100-19 9 above high normal Not Available [facility] ([facility]) [address] [place], [address], 12/19/2024 06:07:31 12/19/19 25 12/19/2024 LIPID PANEL triglyceride s 97 mg/dL 0-149 normal Not Available [facility] ([facility]) [address] [place], [address], 12/19/2024 06:07:31 12/19/19 25 12/19/2024 LIPID PANEL HDL cholesterol 87 mg/dL >39 normal Not Available [facility] ([facility]) [address] [facility], [place], [address], 12/19/2024 06:07:31 12/19/1912/19/2024 LIPID PANEL VLDL cholesterol pantera 17 mg/dL 5-40 Not Available [facility] ([facility]) [address] [place], [address], 12/19/2024 06:07:31 12/19/1912/19/2024 LIPID PANEL LDL chol calc ([facility]) 135 mg/dL 0-99 above high normal Not Available [facility] ([facility]) [address] [place], [address], 12/19/2024 06:07:31 12/19/1912/19/2024 LIPID PANEL LDL calc comment: TRAVEL PT Not Available [facility] ([facility]) [address] [facility], [place], [address], 12/19/2024 06:07:31 01/18/20 25 01/17/2025 CBC WITH DIFFE RENTI AL/PL ATELE T WBC 6.4 x10e3 /uL 3.4-10 .8 normal Not Available [facility] ([facility]) [address] [place], [address], 01/18/2025 06:07:29 01/18/20 25 01/17/2025 CBC WITH DIFFE RENTI AL/PL ATELE T RBC 4.34 x10e6 /uL 3.77-5 .28 normal Not Available [facility] ([facility]) [address] [place], [address], 01/18/2025 06:07:29 01/18/20 25 01/17/2025 CBC WITH DIFFE RENTI AL/PL ATELE T hemoglobin 13.2 g/dL 11.1-1 5.9 normal Not Available [facility] ([facility]) [address] [place], [address], 01/18/2025 06:07:29 01/18/20 25 01/17/2025 CBC WITH DIFFE RENTI AL/PL ATELE T hematocrit 40.2 % 34.0-4 6.6 normal Not Available [facility] ([facility]) [address] [facility], [place], [address], 01/18/2025 06:07:29 01/18/20 25 01/17/2025 CBC WITH DIFFE RENTI AL/PL ATELE T MCV 93 fL 79-97 normal Not Available [facility] ([facility]) [address] [place], [address], 01/18/2025 06:07:29 01/18/20 25 01/17/2025 CBC WITH DIFFE RENTI AL/PL ATELE T MCH 30.4 pg 26.6-3 3.0 normal Not Available [facility] ([facility]) [address] [place], [address], 01/18/2025 06:07:29 01/18/2001/17/2025 CBC WITH DIFFE RENTI AL/PL ATELE T MCHC 32.8 g/dL 31.5-3 5.7 normal Not Available [facility] ([facility]) [address] [place], [address], 01/18/2025 06:07:29 01/18/20 25 01/17/2025 CBC WITH DIFFE RENTI AL/PL ATELE T RDW 12.9 % 11.7-1 5.4 Not Available [facility] ([facility]) [address] [facility], [place], [address], 01/18/2025 06:07:29 01/18/20 25 01/17/2025 CBC WITH DIFFE RENTI AL/PL ATELE T platelets 281 x10e3 /uL 150-45 0 normal Not Available [facility] ([facility]) [address] [facility], [place], [address], 01/18/2025 06:07:29 01/18/20 25 01/17/2025 CBC WITH DIFFE RENTI AL/PL ATELE T neutrophils 63 % not estab. normal Not Available [facility] ([facility]) [address] [facility], [place], [address], 01/18/2025 06:07:29 01/18/20 25 01/17/2025 CBC WITH DIFFE RENTI AL/PL ATELE T lymphs 25 % not estab. normal Not Available [facility] ([facility]) [address] [facility], [place], [address], 01/18/2025 06:07:29 01/18/20 25 01/17/2025 CBC WITH DIFFE RENTI AL/PL ATELE T monocytes 9 % not estab. normal Not Available [facility] ([facility]) [address] [facility], [place], [address], 01/18/2025 06:07:29 01/18/20 25 01/17/2025 CBC WITH DIFFE RENTI AL/PL ATELE T eos 2 % not estab. normal Not Available [facility] ([facility]) [address] [facility], [place], [address], 01/18/2025 06:07:29 01/18/20 25 01/17/2025 CBC WITH DIFFE RENTI AL/PL ATELE T basos 1 % not estab. normal Not Available [facility] ([facility]) [address] [facility], [place], [address], 01/18/2025 06:07:29 01/18/20 25 01/17/2025 CBC WITH DIFFE RENTI AL/PL ATELE T immature cells TRAVEL PT Not Available [facility] ([facility]) [address] [place], [address], 01/18/2025 06:07:29 01/18/20 25 01/17/2025 CBC WITH DIFFE RENTI AL/PL ATELE T neutrophils (absolute) 4.1 x10e3 /uL 1.4-7. 0 normal Not Available [facility] ([facility]) [address] [place], [address], 01/18/2025 06:07:29 01/18/20 25 01/17/2025 CBC WITH DIFFE RENTI AL/PL ATELE T lymphs (absolute) 1.6 x10e3 /uL 0.7-3. 1 normal Not Available [facility] ([facility]) [address] [place], [address], 01/18/2025 06:07:29 01/18/20 25 01/17/2025 CBC WITH DIFFE RENTI AL/PL ATELE T monocytes(ab solute) 0.6 x10e3 /uL 0.1-0. 9 normal Not Available [facility] ([facility]) [address] [place], [address], 01/18/2025 06:07:29 01/18/20 25 01/17/2025 CBC WITH DIFFE RENTI AL/PL ATELE T eos (absolute) 0.2 x10e3 /uL 0.0-0. 4 normal Not Available [facility] ([facility]) [address] [place], [address], 01/18/2025 06:07:29 01/18/20 25 01/17/2025 CBC WITH DIFFE RENTI AL/PL ATELE T baso (absolute) 0.0 x10e3 /uL 0.0-0. 2 normal Not Available [facility] ([facility]) [address] [facility], [place], [address], 01/18/2025 06:07:29 01/18/20 25 01/17/2025 CBC WITH DIFFE RENTI AL/PL ATELE T immature granulocytes 0 % not estab. Not Available [facility] ([facility]) [address] [facility], [place], [address], 01/18/2025 06:07:29 01/18/20 25 01/17/2025 CBC WITH DIFFE RENTI AL/PL ATELE T immature grans (abs) 0.0 x10e3 /uL 0.0-0. 1 Not Available [facility] ([facility]) [address] [facility], [place], [address], 01/18/2025 06:07:29 01/18/20 25 01/17/2025 CBC WITH DIFFE RENTI AL/PL ATELE T NRBC TRAVEL PT Not Available [facility] ([facility]) [address] [facility], [place], [address], 01/18/2025 06:07:29 01/18/20 25 01/17/2025 CBC WITH DIFFE RENTI AL/PL ATELE T hematology comments: TRAVEL PT Not Available [facility] ([facility]) [address] [facility], [place], [address], 01/18/2025 06:07:29 01/18/20 25 01/18/2025 COMP. METAB OLIC PANEL (14) glucose 82 mg/dL 70-99 normal Not Available [facility] ([facility]) [address] [facility], [place], [address], 01/18/2025 06:07:30 01/18/20 25 01/18/2025 COMP. METAB OLIC PANEL (14) BUN 14 mg/dL 8-27 normal Not Available [facility] ([facility]) [address] [facility], [place], [address], 01/18/2025 06:07:30 01/18/20 25 01/18/2025 COMP. METAB OLIC PANEL (14) creatinine 1.00 mg/dL 0.57-1 .00 normal Not Available [facility] ([facility]) [address] [place], [address], 01/18/2025 06:07:30 01/18/20 25 01/18/2025 COMP. METAB OLIC PANEL (14) eGFR 59 mL/mi n/1.7 3 >59 below low normal Not Available [facility] ([facility]) [address] [place], [address], 01/18/2025 06:07:30 01/18/20 25 01/18/2025 COMP. METAB OLIC PANEL (14) BUN/creatini ne ratio 14 12-28 normal Not Available [facility] ([facility]) [address] [place], [address], 01/18/2025 06:07:30 01/18/20 25 01/18/2025 COMP. METAB OLIC PANEL (14) sodium 140 mmol/ L 134-14 4 normal Not Available [facility] ([facility]) [address] [place], [address], 01/18/2025 06:07:30 01/18/20 25 01/18/2025 COMP. METAB OLIC PANEL (14) potassium 4.7 mmol/ L 3.5-5. 2 normal Not Available [facility] ([facility]) [address] [place], [address], 01/18/2025 06:07:30 01/18/20 25 01/18/2025 COMP. METAB OLIC PANEL (14) chloride 103 mmol/ L 96-106 normal Not Available [facility] ([facility]) [address] [place], [address], 01/18/2025 06:07:30 01/18/20 25 01/18/2025 COMP. METAB OLIC PANEL (14) carbon dioxide, total 20 mmol/ L 20-29 normal Not Available [facility] ([facility]) [address] [place], [address], 01/18/2025 06:07:30 01/18/20 25 01/18/2025 COMP. METAB OLIC PANEL (14) calcium 9.8 mg/dL 8.7-10 .3 normal Not Available [facility] ([facility]) [address] [place], [address], 01/18/2025 06:07:30 01/18/20 25 01/18/2025 COMP. METAB OLIC PANEL (14) protein, total 7.1 g/dL 6.0-8. 5 normal Not Available [facility] ([facility]) [address] [place], [address], 01/18/2025 06:07:30 01/18/20 25 01/18/2025 COMP. METAB OLIC PANEL (14) albumin 4.7 g/dL 3.8-4. 8 normal Not Available [facility] ([facility]) [address] [place], [address], 01/18/2025 06:07:30 01/18/20 25 01/18/2025 COMP. METAB OLIC PANEL (14) globulin, total 2.4 g/dL 1.5-4. 5 Not Available [facility] ([facility]) [address] [place], [address], 01/18/2025 06:07:30 01/18/20 25 01/18/2025 COMP. METAB OLIC PANEL (14) bilirubin, total 0.2 mg/dL 0.0-1. 2 normal Not Available [facility] ([facility]) [address] [place], [address], 01/18/2025 06:07:30 01/18/20 25 01/18/2025 COMP. METAB OLIC PANEL (14) alkaline phosphatase 96 IU/L 44-121 normal Not Available [facility] ([facility]) [address] [place], [address], 01/18/2025 06:07:30 01/18/20 25 01/18/2025 COMP. METAB OLIC PANEL (14) AST (SGOT) 17 IU/L 0-40 normal Not Available [facility] ([facility]) [address] [place], [address], 01/18/2025 06:07:30 01/18/20 25 01/18/2025 COMP. METAB OLIC PANEL (14) ALT (SGPT) 9 IU/L 0-32 normal Not Available [facility] ([facility]) [address] [place], [address], 01/18/2025 06:07:30 01/18/20 25 01/17/2025 PT AND [...] range 2.5 - 3.5 Not Available [facility] ([facility]) [address] [place], [address], 01/18/2025 06:07:30 01/18/20 25 01/17/2025 PT AND PTT prothrombin time 10.5 sec 9.1-12 .0 normal Not Available [facility] ([facility]) [address] [place], [address], 01/18/2025 06:07:30 01/18/20 25 01/17/2025 PT AND [...] tory of Kieran walters. Not Available [facility] ([facility]) [address] [facility], [place], [address], 01/18/2025 06:07:30 04/02/2004/03/2025 TROY TIN ferritin 221 NG/mL 8-[address] [facility] U/S Dept [address] [place] [address], [place], [address], 04/04/2025 12:34:23 04/02/2004/03/2025 TROY TIN note See Report [facility], [address], [place], [facility] [place] [address] Not Available [facility]/S Dept [address] [place], [place] [address]y, [place], [address], 04/04/2025 12:34:23 04/02/20 25 04/03/2025 IRON iron 11 mcg/d L 40-150 low Not Available [facility]/S Dept [address] [place] [address], [place], [address], 04/04/2025 12:57:42 04/02/2004/03/2025 IRON note See Report low [facility], [address], [place], [place] [address] Not Available [facility]/S Dept [address] [place], [place] [address] [place], [address], 04/04/2025 12:57:42 04/02/20 25 04/05/2025 URINA LYSIS WITH REFLE X MICRO SCOPI C AND CULTU RE specific gravity urine 1.013 1.003- 1.030 Not Available [facility]/S Dept [address] [place] [address] [address], [place], [address], 04/05/2025 13:33:39 04/02/2004/05/2025 URINA LYSIS WITH REFLE X MICRO SCOPI C AND CULTU RE pH, urine 6.5 pH 5.0-8. 0 Not Available [address], [place], [address], 04/05/2025 13:33:39 04/02/20 25 04/05/2025 URINA LYSIS WITH REFLE X MICRO SCOPI C AND CULTU RE leukocytes, urine Trace negati ve abnormal Not Available [address], [place], [address], 04/05/2025 13:33:39 04/02/20 25 04/05/2025 URINA LYSIS WITH REFLE X MICRO SCOPI C AND CULTU RE nitrite, urine Negati ve negati ve Not Available [facility] [place] [address] [place] [address] [address], [place], [address], 04/05/2025 13:33:39 04/02/20 25 04/05/2025 URINA LYSIS WITH REFLE X MICRO SCOPI C AND CULTU RE protein, urine Trace mg/dL <=trac e Not Available [address], [place], [address], 04/05/2025 13:33:39 04/02/20 25 04/05/2025 URINA LYSIS WITH REFLE X MICRO SCOPI C AND CULTU RE glucose, urine Negati ve mg/dL negati ve Not Available [facility] [place] [address] [place] [address] [address], [place], [address], 04/05/2025 13:33:39 04/02/20 25 04/05/2025 URINA LYSIS WITH REFLE X MICRO SCOPI C AND CULTU RE ketones, urine Negati ve mg/dL negati ve Not Available [facility]/S Dept [address] [place] [address] [address], [place], [address], 04/05/2025 13:33:39 04/02/2004/05/2025 URINA LYSIS WITH REFLE X MICRO SCOPI C AND CULTU RE urobilinogen , urine 0.2 mg/dL 0.2-1. 0 Not Available [facility] [address] [place] [address] [address], [place], [address], 04/05/2025 13:33:39 04/02/2004/05/2025 URINA LYSIS WITH REFLE X MICRO SCOPI C AND CULTU RE bilirubin, urine Negati ve negati ve Not Available [facility] [address] [place] [address] [address], [facility], [address], 04/05/2025 13:33:39 04/02/2004/05/2025 URINA LYSIS WITH REFLE X MICRO SCOPI C AND CULTU RE blood, urine Negati ve negati ve Not Available [facility] [address] [place] [address] [address], [place], [address], 04/05/2025 13:33:39 04/02/20 25 04/05/2025 URINA LYSIS WITH REFLE X MICRO SCOPI C AND CULTU RE RBC, urine 2.0 /hpf 0-4 Not Available [facility] [address] [place] [address] [address] [facility], [address], 04/05/2025 13:33:39 04/02/2004/05/2025 URINA LYSIS WITH REFLE X MICRO SCOPI C AND CULTU RE WBC, urine 1.1 /hpf 0-4 Not Available [facility] [address] [place] [address] [address] [place], [address], 04/05/2025 13:33:39 04/02/20 25 04/05/2025 URINA LYSIS WITH REFLE X MICRO SCOPI C AND CULTU RE squamous epithelial, urine 10 /lpf 0-60 Not Available [facility]/S Dept [address] [place] [address], [address], 04/05/2025 13:33:39 04/02/20 25 04/05/2025 URINA LYSIS WITH REFLE X MICRO SCOPI C AND CULTU RE bacteria, urine Negati ve /hpf negati ve Not Available [facility]/S Dept [address] [place] [address], [address], 04/05/2025 13:33:39 04/02/20 25 04/05/2025 URINA LYSIS WITH REFLE X MICRO SCOPI C AND CULTU RE hyaline casts, urine 0.0 /lpf 0-3 Not Available [facility]/S Dept [address] [place] [address], [address], 04/05/2025 13:33:39 04/02/20 25 04/05/2025 URINA LYSIS WITH REFLE X MICRO SCOPI C AND CULTU RE note See Report [facility], [address], [place] [address] Not Available [facility]S Dept [address] [place] [address], [address], 04/05/2025 13:33:39 04/02/2004/02/2025 CULTU RE URINE .note See Note Origi nal Order ing Provi effie: TAURUS STEVENS [facility] - [address], [place] [address] Not Available [facility]/S Dept [address] [place] [address], [address], 04/06/2025 07:27:12 04/02/20 25 04/05/2025 CULTU RE URINE culture, urine No growth Not Available [facility]/S Dept [address], [place], [address], 04/06/2025 07:27:12 04/17/20 24 2024 XR, hip + pelvi s, unila teral No observ ation record ed. [facility] (Medical Records) [address] [place], [address], 2024 15:49:57 04/18/2004/18/2024 XR, hip, unila teral No observ ation record ed. [facility] (Medical Records) [address] [place], [address], 04/18/2024 09:20:48 04/19/2004/19/2024 XR, pelvi s No observ ation record ed. [facility] (Medical Records) [address] [place], [address], 04/20/2024 10:54:01 07/29/19 25 07/26/2024 US, duple x, venou s, extre mity, compl ete No observ ation record ed. [facility] [address] [facility] [address] [facility], [place], [address], 07/29/2024 09:27:26 10/11/1910/10/2024 XR, chest , 2 [...] surger y. IMPRES BLANE: Normal chest. WSN: [id number] Orderi ng Physic meghna: Kurtis oBoker Dictat ed By: Rory Bhatti MD Dictat ed Date/T nataliya: 5:04 pm Review ed By: Davy KAY, Rory dale Signed By: Rory Bhatti MD Signed Date/T nataliya: 5:04 pm Transc ribed By: CSB Transc ribed Date/T nataliya: 5:02 pm Patien t Class: Outpat ient [email or web address] [facility] (Outpt Imaging) [address], [place], [address], 10/10/2024 19:54:30 10/11/19 25 10/10/2024 imagi ng/di agnos tic resul t No observ ation record ed. [facility] [address], [place], [address], 10/11/2024 10:44:14 11/21/19 25 11/19/2024 US, duple x, arter ial, lower extre mity, compl ete No observ ation record ed. [facility] [address], [place], [address], 11/20/2024 09:02:12 01/18/20 25 01/17/2025 elect rocar [...] Lay letter mailed to matilde rubio WSN: [id number] Orderi ng Physic meghna: Maggy Quinn Dictat ed By: Maksim Horton MD Dictat ed Date/T nataliya: 5:33 pm Review ed By: Maksim Horton MD Signed By: Maksim Horton MD Signed Date/T nataliya: 5:33 pm Transc ribed By: KAN Transc riptio n Date/T nataliya: 5:31 pm Birads : Matilde t Class: Outpat ient [facility] (Outpt Imaging) [address] [place] [address], [address], 03/25/2025 15:47:16 Result Notes Documentation Provider Name [...] upper quadrant surgery. IMPRESSION: Normal chest. WSN: [id number] Ordering Physician: Ilda Booker Dictated By: Anatoliy Bhatti MD Dictated Date/Time: 10/10/24 5:04 pm Reviewed By: Anatoliy Bhatti MD Signed By: Anatoliy Bhatti MD Signed Date/Time: 10/10/24 5:04 pm Transcribed By: KAN Transcribed Date/Time: 10/10/24 5:02 pm Patient Class: Outpatient Ilda [facility]g [address], [address], [facility] 10/10/2024 19:54:30 Mammo, Screening, Digital, Bilateral [...] (Negative) Lay letter mailed to patient WSN: [id number] Ordering Physician: Maggy Floyd Dictated By: Zay Moreno MD Dictated Date/Time: 03/23/25 5:33 pm Reviewed By: Zay Moreno MD Signed By: Zay Moreno MD Signed Date/Time: 03/23/25 5:33 pm Transcribed By: KAN Marketing Intern Date/Time: 03/23/25 5:31 pm Birads: [facility]25[facility]25 15:47:16 Problems Name Problem SNOMED Code Status Onset Date Resolution Date Notes Provider Name and Address Organization Details Recorded Time Mass of body structur e 025200186 Completed 10/10/2014 Maggy kohli MD [address] [facility] [address], [place], [address], [facility] 6 06:40:11 Carpal tunnel syndrome 27670248 Active Maggy okhli MD [address] [facility] [address], [place], [address], [facility] 6 06:40:10 Spinal stenosis of lumbar region 75144173 Active [facility] Dr Raza because she failed conserva tive treatmen t. 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 790072898 Active Followed by Dr Sanjeev kohli MD [address] [facility] [address], [place], [address], [facility] 6 06:40:10 Scoliosi s of lumbar spine 037791884 Active Followed by Dr Sanjeev kohli MD [address] [facility] [address], [place], [address], [facility] 6 06:40:10 Pes anserinu s bursitis 14778630 Active Followed by Dr Sanjeev kohli MD [address] [facility] [address], [place], [address], [facility] 6 06:40:10 Degenera tion of lumbar interver tebral disc 41104885 Active Followed by Dr Sanjeev kohli MD [address], [facility] [place], [address], [facility] 6 06:40:10 Osteopen ia 275509215 Active Maggy kohli MD [address], [facility] [place], [address], [facility] 6 17:42:58 Primary malignan t neoplasm of kidney 72288508 Active 2005 Maggy kohli MD [address], [facility] [place], [address], [facility] 1 10:56:21 Dizzines s and giddines s 342255942 Completed 200702/04/2014 RESOLVED DATE: 11/05/19 08; RECORDED 11/05/19 08 5:56PM BY MAGGY CHANDRA MD, ANNOTATI ON/ADDEN DUM Maggy kohli MD [address] [facility] [address], [facility] [place], [address], [facility] 6 06:40:11 Dysuria 28996508 Completed 200702/04/2014 RESOLVED DATE: 11/05/19 08; RECORDED 11/05/19 08 5:56PM BY MAGGY CHANDRA MD, ANNOTATI ON/ADDEN DUM Maggy kohli MD [address], [place], [address], [facility] 6 06:40:11 General examinat ion of patient Completed 200702/04/2014 RECORDED 11/05/19 08 5:57PM BY MAGGY CHANDRA MD, ANNOTATI ON/ADDEN DUM Maggy kohli MD [address], [facility] [place], [address], [facility] 6 06:40:11 Sign or symptom of the urinary system 78888390 Completed 200702/04/2014 RESOLVED DATE: 11/05/19 08; KULWINDER ON: D/C DETROL SAMPLES OF ENABLEX FOR TRIAL; RECORDED 11/05/19 08 5:56PM BY MAGGY CHANDRA MD, MERRITTATI ON/ DUM Maggy kohli MD [address] [facility] [address], [place], [address], [facility] 6 06:40:11 Conjunct ival hemorrha ge 03864598 Completed 200702/04/2014 RESOLVED DATE: 11/05/19 08; RECORDED 11/05/19 08 5:56PM BY MAGGY CHANDRA MD, ANNOTATI ON/ Maggy kohli MD [address] [facility] [address], [facility] [place], [address], [facility] 6 06:40:10 Urinary tract infectio us disease 24166184 Completed 200702/04/2014 RESOLVED DATE: 11/05/19 08; RECORDED 11/05/19 08 5:57PM BY MAGGY CHANDRA MD, ANNOTATI ON/ Maggy kohli MD [address] [facility] [address], [facility] [place], [address], [facility] 6 06:40:11 Dizzines s and giddines s 418813607 Completed 200703/03/2014 RESOLVED DATE: 11/05/19 08; RECORDED 11/05/19 08 5:56PM BY MAGGY CHANDRA MD, MERRITTATI / Maggy kohli MD [address] [facility] [address], [facility] [place], [address], [facility] 6 06:40:11 Dysuria 28377335 Completed 200703/03/2014 RESOLVED DATE: 11/05/19 08; RECORDED 11/05/19 08 5:56PM BY MAGGY CHANDRA MD, ANNOTATI ON/ADD DUM Maggy kohli MD [address] [facility] [address], [facility] [place], [address], [facility] 6 06:40:11 General examinat ion of patient Completed 200703/03/2014 RECORDED 11/05/19 08 5:57PM BY MAGGY CHANDRA MD, ANNOTATI ON/ Maggy kohli MD [address] [facility] [address], [facility] [place], [address], [facility] 6 06:40:11 Sign or symptom of the urinary system 75069338 Completed 200703/03/2014 RESOLVED DATE: 11/05/19 08; IMPRESSI ON: D/C DETROL SAMPLES OF ENABLEX FOR TRIAL; RECORDED 11/05/19 08 5:56PM BY MAGGY CHANDRA MD, ANNOTATI ON/ Maggy kohli MD [address] [facility] [address], [facility] [place], [address], [facility] 6 06:40:11 Conjunct ival hemorrha ge 59393177 Completed 200703/03/2014 RESOLVED DATE: 11/05/19 08; RECORDED 11/05/19 08 5:56PM BY MAGGY CHANDRA MD, ANNOTATI ON/ Maggy kohli MD [address] [facility] [address], [facility] [place], [address], [facility] 6 06:40:10 Urinary tract infectio us disease 05262704 Completed 200703/03/2014 RESOLVED DATE: 11/05/19 08; RECORDED 11/05/19 08 5:57PM BY MAGGY CHANDRA MD, ANNOTATI ON/ Maggy kohli MD [address] [facility] [address], [facility] [place], [address], [facility] 6 06:40:11 Chest pain 05597587 Completed 201002/04/2014 DATE: 02/05/20 11; IMPRESSI ON: L ANTERIOR CHEST WALL PAIN FOLLOWIN G PULLING INJURY WHILE WEEDING YESTERDA Y. SUSPECT STRAIN OF INTERCOS TALS, PT ELECTS FOR XRAY. REST, HEAT/ICE , NSAID DURING DAY AND NARCOTIC MED AT NIGHT PRN. WILL CONTACT PT WITH RESULT WHEN AVAIL.; RECORDED 05/16/20 12 9:09AM BY ARIANA CARRION MA, ISHA ON/FRANK kohli MD [address] [facility] [address], [facility] [place], [address], [facility] 6 06:40:11 Chest pain 91558723 Completed 201003/03/2014 DATE: 02/05/20 11; IMPRESSI ON: L ANTERIOR CHEST WALL PAIN FOLLOWIN G PULLING INJURY WHILE WEEDING YESTERDA Y. SUSPECT STRAIN OF INTERCOS TALS, PT ELECTS FOR XRAY. REST, HEAT/ICE , NSAID DURING DAY AND NARCOTIC MED AT NIGHT PRN. WILL CONTACT PT WITH RESULT WHEN AVAIL.; RECORDED 05/16/20 12 9:09AM BY ARIANA CARRION MA, ISHA ON/FRANK kohli MD [address] [facility] [address], [facility] [place], [address], [facility] 6 06:40:11 Abdomina l pain 60682362 Completed 201102/04/2014 RECORDED 05/16/20 12 9:09AM BY ARIANA CARRION MA, ISHA ON/ELLIE Ma [address] [facility] [address], [facility] [place], [address], [facility] 2 09:55:02 Screenin g for malignan t neoplasm of breast Completed 201102/04/2014 RECORDED 05/16/20 12 9:09AM BY ARIANA CARRION MA, ISHA ON/FRANK kohli MD [address], [place], [address], [facility] 6 06:40:11 Screenin g for malignan t neoplasm of cervix Completed 201102/04/2014 RECORDED 05/16/20 12 9:09AM BY ARIANA CARRION MA, ANNOTMYCHAL ON/FRANK kohli MD [address], [place], [address], [facility] 6 06:40:11 Degenera tion of interver tebral disc Completed 201102/04/2014 RECORDED 05/16/20 12 9:09AM BY ARIANA CARRION MA, ANNOTATI ON/FRANK kohli MD [address] [facility] [address], [place], [address], [facility] 6 06:40:11 Dysphagi a 51321212 Completed 201102/04/2014 RECORDED 05/16/20 12 9:09AM BY ARIANA CARRION MA, ISHA ON/FRANK kohli MD [address] [facility] [address], [place], [address], [facility] 6 06:40:11 Pain of joint of hand 079640114 Completed 201102/04/2014 RECORDED 05/16/20 12 9:09AM BY ARIANA CARRION MA, ISHA ON/FRANK kohli MD [address], [place], [address], [facility] 6 06:40:11 Knee pain Completed 201102/04/2014 RECORDED 05/16/20 12 9:09AM BY ARIANA CARRION MA, ISHA ON/FRANK kohli MD [address] [facility] [address], [place], [address], [facility] 6 06:40:11 Joint pain in ankle and foot Completed 201102/04/2014 RECORDED 05/16/20 12 9:09AM BY ARIANA CARRION MA, ANNOTATI ON/ADDEN DUM Maggy kohli MD [address] [facility] [address], [place], [address], [facility] 6 06:40:11 Screenin g for malignan t neoplasm of colon Completed 201102/04/2014 RECORDED 05/16/20 12 9:09AM BY ARIANA CARRION MA, ISHA ON/ADDEN WAQAS kohli MD [address] [address], [place], [address], [facility] 6 06:40:11 Urge incontin ence of urine 75374192 Completed 201102/04/2014 RECORDED 05/16/20 12 9:09AM BY RAIANA CARRION MA, ANNOTATI ON/ADDEN WAQAS kohli MD [address] [address], [place], [address], [facility] 6 06:40:11 Abdomina l pain 30424304 Completed 201103/03/2014 RECORDED 05/16/20 12 9:09AM BY ARIANA CARRION MA, MERRITTATI ON/ADDEN DUM ELLIE Martinez [address] [facility] [address], [place], [address], [facility] 2 09:55:02 Screenin g for malignan t neoplasm of breast Completed 201103/03/2014 RECORDED 05/16/20 12 9:09AM BY ARIANA CARRION MA, ISHA ON/ADDEN WAQAS kohli MD [address] [address], [place], [address], [facility] 6 06:40:11 Screenin g for malignan t neoplasm of cervix Completed 201103/03/2014 RECORDED 05/16/20 12 9:09AM BY ARIANA CARRION MA, ISHA ON/FRANK kohli MD [address], [place], [address], [facility] 6 06:40:11 Degenera tion of interver tebral disc Completed 201103/03/2014 RECORDED 05/16/20 12 9:09AM BY ARIANA CARRION MA, ISHA ON/FRANK kohli MD [address], [place], [address], [facility] 6 06:40:11 Dysphagi a [id number] Completed 201103/03/2014 RECORDED 05/16/20 12 9:09AM BY ARIANA CARRION MA, ISHA ON/FRANK kohli MD [address], [place], [address], [facility] 6 06:40:11 Pain of joint of hand 433410441 Completed 201103/03/2014 RECORDED 05/16/20 12 9:09AM BY ARIANA CARRION MA, ISHA ON/FRANK kohli MD [address], [place], [address], [facility] 6 06:40:11 Knee pain Completed 201103/03/2014 RECORDED 05/16/20 12 9:09AM BY ARIANA CARRION MA, ISHA ON/FRANK kohli MD [address], [place], [address], [facility] 6 06:40:11 Joint pain in ankle and foot Completed 201103/03/2014 RECORDED 05/16/20 12 9:09AM BY ARIANA CARRION MA, ISHA ON/FRANK kohli MD [address] [facility] [address], [place], [address], [facility] 6 06:40:11 Screenin g for malignan t neoplasm of colon Completed 201103/03/2014 RECORDED 05/16/20 12 9:09AM BY ARIANA CARRION MA, ISHA ON/FRANK kohli MD [address] [address], [place], [address], [facility] 6 06:40:11 Urge incontin ence of urine 70005706 Completed 201103/03/2014 RECORDED 05/16/20 12 9:09AM BY ARIANA CARRION MA, ISHA ON/FRANK kohli MD [address] [address], [place], [address], [facility] 6 06:40:11 Dermatop hytosis of the body Completed 201102/04/2014 RECORDED 07/20/20 12 11:31AM BY TIA WILEY MA, ISHA BARFIELD/FRANK kohli MD [address] [address], [place], [address], [facility] 6 06:40:10 Dermatop hytosis of the body Completed 201103/03/2014 RECORDED 07/20/20 12 11:31AM BY TIA WILEY MA, ISHA BARFIELD/FRANK kohli MD [address] [address], [place], [address], [facility] 6 06:40:10 Lipoma of skin and subcutan eous tissue of face 16610106 Completed 201202/04/2014 RECORDED 08/01/19 13 9:48AM BY MAGGY CHANDRA MD, ISHA ON/FRANK kohli MD [address] [facility] [address], [facility] [place], [address], [facility] 6 06:40:10 Benign paroxysm al position al vertigo 952880501 Completed 201202/04/2014 IMPRESSI ON: SHE WILL TRY EXERCISE S AND IF THE VERTIGO PERSISTS SHE WILL CALL AND WE WILL DO A REFERRAL TO [facility].; RECORDED 08/01/19 13 9:48AM BY MAGGY CHANDRA MD, ISHA ON/FRANK kohli MD [address] [address], [facility] [place], [address], [facility] 6 06:40:10 Depressi ve disorder 37474561 Completed 201202/04/2014 RECORDED 08/09/19 13 4:37PM BY MOOKIE YOU MA, ISHA ON/FRANK kohli MD [address] [address], [place], [address], [facility] 6 06:40:10 Depressi ve disorder 76160464 Completed 201203/03/2014 RECORDED 08/09/19 13 4:37PM BY MOOKIE YOU MA, ISHA ON/FRANK kohli MD [address] [address], [place], [address], [facility] 6 06:40:10 Adult health examinat ion Completed 201202/04/2014 RECORDED 11/23/19 13 1:10PM BY ISHA GARY ON/FRANK kohli MD [address] [address], [place], [address], [facility] 6 06:40:11 Malaise and fatigue 435437976 Completed 201202/04/2014 RECORDED 11/23/19 13 1:10PM BY ISHA GARY ON/ADDEN DUM Mookie harris MA null, [facility] 8 08:50:10 Administ ration of diphther ia and tetanus vaccine Completed 201202/04/2014 RECORDED 11/23/19 13 1:10PM BY ISHA GARY ON/ADDEN DUM Maggy kohli MD [address] [facility] [address], [place], [address], [facility] 6 06:40:11 Adult health examinat ion Completed 201203/03/2014 RECORDED 11/23/19 13 1:10PM BY ISHA GARY ON/ADDEN DUM Maggy kohli MD [address], [place], [address], [facility] 6 06:40:11 Administ ration of diphther ia and tetanus vaccine Completed 201203/03/2014 RECORDED 11/23/19 13 1:10PM BY ISHA GARY ON/ADDEN DUM Maggy kohli MD [address] [facility] [address], [place], [address], [facility] 6 06:40:11 Anxiety state 264162439 Active 2013 Mookie harris MA null, [facility] 8 08:49:46 Patient status finding [id number] Completed 201307/01/2014 RECORDED 08/06/19 14 9:46AM BY KATTY JO I, OFFICE VISIT Maggy kohli MD [address] [facility] [address], [place], [address], [facility] 6 06:40:11 Urinary bladder problem 098841513 Active 2013 Mookie harris MA null, [facility] 8 08:50:06 History of depressi on 407443878 Completed 201310/10/2014 RECORDED 08/06/19 14 9:43AM BY KATTY JO I, OFFICE VISIT Maggy kohli MD [address], [place], [address], [facility] 6 06:40:11 External hemorrho ids 44168317 Active 2013 Mookie harris MA null, [facility] 8 08:49:52 Adult health examinat ion Completed 201307/01/2014 RECORDED 08/06/19 14 10:23AM BY ESTUARDO FERNANDEZ, HISTORIC AL SUMMARY Maggy kohli MD [address], [place], [address], [facility] 6 06:40:11 Hypercho lesterol emia 24423855 Completed 201302/21/2017 RECORDED 08/06/19 14 9:43AM BY KATTY JO I, OFFICE VISIT Maggy kohli MD [address], [place], [address], [facility] 7 13:46:36 Kidney disease 65622925 Completed 201310/10/2014 RECORDED 08/06/19 14 9:43AM BY KATTY JO I, OFFICE VISIT Maggy kohli MD [address], [place], [address], [facility] 6 06:40:11 Postmeno pausal state 32390338 Active 2013 IMPRESSI ON: MANY OF HER SX (FATIGUE , HAIR CHANGES, SKIN DRYNESS, VAGINAL DRYNESS, COLD INTOLERA NCE) CAN BE RELATED TO MENOPAUS E. SHE IS WORKING WITH HER BD SPECIAL EDUCATION TEACHER ON THIS Mookie harris MA santosh, [facility] 8 08:50:03 Oophorec alec Active 2013 RIGHT Mookie harris MA santosh, [facility] 8 08:49:59 Osteopor osis 11265976 Active 2013 Mookie harris MA santosh, [facility] 8 08:50:38 History of clinical finding in subject 213032929 Completed 201307/01/2014 RECORDED 08/06/19 14 9:44AM BY KATTY JO I, OFFICE VISIT Maggy kohli MD [address], [place], [address] 6 06:40:11 Dyspnea [id number] Completed 201302/04/2014 IMPRESSI ON: NO EVIDENCE FOR HEART OR LUNG DS. SHE WILL USE OTC LORATIDI NE IF HER SX WORSEN.; RECORDED 08/06/19 14 7:03AM BY KATTY JO I, ANNOTATI ON/ADDEN WAQAS frost [facility] 5 11:52:26 Suicide attempt Active 2013 Mookie harris MA santosh, [facility] 8 08:50:40 Dyspnea [id number] Completed 201303/03/2014 IMPRESSI ON: NO EVIDENCE FOR HEART OR LUNG DS. SHE WILL USE OTC LORATIDI NE IF HER SX WORSEN.; RECORDED 08/06/19 14 7:03AM BY KATTY JO I, ANNOTATI ON/ADDEN WAQAS frost [facility] 5 11:52:26 Laborato ry procedur e performe d [id number] Completed 201307/01/2014 RECORDED 09/13/19 14 11:38AM BY DRISS FERRER, LAB REQ Maggy kohli MD [address] [facility] [address], [place], [address], [facility] 6 06:40:11 Allergic rhinitis 44269800 Active 2013 SUZY Torres, [facility] 8 08:50:35 Elevated blood-pr essure reading without diagnosi s of hyperten blane 123660440 Active 2013 SUZY Torres, [facility] 8 08:50:30 Gastroes ophageal reflux disease 135166328 Active 2013 SUZY Torres, [facility] 8 08:49:49 Insomnia 812362164 Active 2013 SUZY Torres, [facility] 8 08:50:24 Migraine 35874028 Active 2013 SUZY Torres, [facility] 8 08:50:33 Generali zed osteoart hritis 199776695 Active [address] Sanjeev kohli MD [address] [facility] [address], [place], [address], [facility] 6 17:42:58 Tobacco user [id number] Completed 201307/01/2014 RECORDED 02/05/20 14 9:01AM BY KATTY JO I, OFFICE VISIT Maggy kohli MD [address] [facility] [address], [place], [address], [facility] 6 06:40:10 Urinary incontin ence 034548476 Active 2013 SUZY Torres, [facility] 8 08:50:14 Anxiety state 557691474 Completed 201303/03/2014 RECORDED 02/05/20 14 7:08AM BY ISHA GARY ON/ADDEN DUM MookieSUZY Servin, [facility] 8 08:49:46 Patient status finding [id number] Completed 201303/03/2014 RECORDED 02/05/20 14 7:07AM BY MERRITT GARYATI ON/ADDEN WAQAS kohli MD [address], [place], [address], [facility] 6 06:40:11 Urinary bladder problem 332304054 Completed 201303/03/2014 RECORDED 02/05/20 14 7:08AM BY ISHA GARY ON/ADDEN DUM Mookie SUZY Goncalves, [facility] 8 08:50:06 History of depressi on 283253405 Completed 201303/03/2014 RECORDED 02/05/20 14 7:08AM BY ISHA GARY ON/ADDEN DUM Maggy kohli MD [address], [place], [address], [facility] 6 06:40:11 External hemorrho ids [id number] Completed 201303/03/2014 RECORDED 02/05/20 14 7:07AM BY ISHA GARY ON/ADDEN DUM [facility] 8 08:49:52 Gastroes ophageal reflux disease 392982006 Completed 201303/03/2014 RECORDED 02/05/20 14 7:08AM BY ISHA GARY ON/ADDEN DUM SUZY Torres, [facility] 8 08:49:49 Hypercho lesterol emia 00485119 Completed 201303/03/2014 RECORDED 02/05/20 14 7:08AM BY ISHA GARY ON/FRANK kohli MD [address], [place], [address], [facility] 7 13:46:36 Kidney disease 06709201 Completed 201303/03/2014 RECORDED 02/05/20 14 7:08AM BY ISHA GARY ON/FRANK kohli MD [address], [place], [address], [facility] 6 06:40:11 Laborato ry procedur e performe d [id number] Completed 201303/03/2014 RECORDED 02/05/20 14 7:07AM BY ISHA GARY ON/FRANK kohli MD [address], [place], [address], [facility] 6 06:40:11 Lipoma of skin and subcutan eous tissue of face 11474376 Completed 201303/03/2014 RECORDED 02/05/20 14 7:07AM BY ISHA GARY ON/FRANK kohli MD [address], [place], [address], [facility] 6 06:40:10 Postmeno pausal state 33518886 Completed 201303/03/2014 IMPRESSI ON: MANY OF HER SX (FATIGUE , HAIR CHANGES, SKIN DRYNESS, VAGINAL DRYNESS, COLD INTOLERA NCE) CAN BE RELATED TO MENOPAUS E. SHE IS WORKING WITH HER BD SPECIAL EDUCATION TEACHER ON THIS.; RECORDED 02/05/20 14 7:07AM BY ISHA GARY ON/ADDEN DUM SUZY Torres, [facility] 8 08:50:03 Oophorec alec Completed 201303/03/2014 RIGHT; RECORDED 02/05/20 14 7:08AM BY KATTY JO I ANNOTATI ON/ADDEN DUM SUZY Torres, [facility] 8 08:49:59 Benign paroxysm al position al vertigo 242394262 Completed 201303/03/2014 IMPRESSI ON: SHE WILL TRY EXERCISE S AND IF THE VERTIGO PERSISTS SHE WILL CALL AND WE WILL DO A REFERRAL TO [facility].; RECORDED 02/05/20 14 7:07AM BY KATTY JO I ANNOTATI ON/ADDEN DUM Maggy kohli MD [address] [facility] [address], [place], [address], [facility] 6 06:40:10 Reduced libido 0476801 Active 2013 IMPRESSI ON: REFERRAL TO ENDO FOR FURTHER EVALUATI ON Mookie SUZY Goncalves, [facility] 8 08:50:42 Malaise and fatigue 222405900 Active 2013 IMPRESSI ON: THIS MAY BE RELATED TO HER DEPRESSI ON AND WELL TO HORMONAL CHANGES. WE WILL REFER HER TO ENDO FOR FURTHER EVALUATI ON AND POSSIBLE HORMONE REPLACEM ENT. SUZY Torres, [facility] 8 08:50:10 Pain in left lower limb 590331603 Active 2016 Seen by [facility]; started September 2016 Maggy kohli MD [address] [facility] [address], [place], [address], [facility] 7 21:02:07 Pain of shoulder region 61218848 Active 2016 Seen by [facility]; started September 2016 Maggy kohli MD [address], [place], [address], [facility] 7 21:02:34 Hyperlip idemia 45543745 Active 2016 Maggy kohli MD [address], [place], [address], [facility] 7 13:48:42 Pannicul itis 72286197 Active [address] scan done September 2018 w/o change. Maggy kohli MD [address], [place], [address], [facility] 9 08:31:41 Solitary nodule of lung 018748703 Active 2018 RML; will repeat in 1 year given smoking hx. Maggy kohli MD [address], [place], [address], [facility] 9 08:33:06 Pain of left knee region 69812211899 4109 Active 2021 Followed by [facility]; injected . Maggy kohli MD [address], [place], [address], [facility] 2 16:16:44 Piriform is syndrome 137157923 Active 2021 [facility] [address], [place], [address], [facility] 2 14:52:33 Pain of sacroili ac joint 752126110 Active 2021 [facility] [address], [place], [address], [facility] 2 14:53:26 Left lower quadrant pain 108305701 Active 2021 [facility] [address], [place], [address], [facility] 2 15:12:41 Abdomina l pain 02237760 Active 2021 RECORDED 05/16/20 12 9:09AM BY ARIANA CARRION MA, MERRITTATI ON/ADDEN DUM Nancie Dumont [facility] [address], [place], [address], [facility] 2 09:55:02 Lumbosac ral radiculi tis 63607717 Active [address] Best. Currentl y treated with meds. Also seen by [facility] and injected . Maggy kohli MD [address], [facility] [place], [address], [facility] 3 07:41:33 Pain of left thigh 35953512492 9105 Active 2023 Gerardo frost, [facility] 4 16:46:52 Pain of left hip joint 70010282256 9100 Active 2023 Seen by [facility] and hip replacem ent recommen ded. Maggy kohli MD [address], [place], [address], [facility] 4 14:11:10 Fracture of neck of femur 5532093 Active 2023 Maggy kohli MD [address], [place], [address], [facility] 4 09:20:04 Dyspnea 961962107 Active 2024 IMPRESSI ON: NO EVIDENCE FOR HEART OR LUNG DS. SHE WILL USE OTC LORATIDI NE IF HER SX WORSEN.; RECORDED 08/06/19 14 7:03AM BY ISHA GARY ON/ADDEN DUM Krishan frost, [facility] 5 11:52:26 Vitamin D deficien cy 62018599 Active 2024 Krishan frost [facility] 5 12:01:57 Fatigue 64463752 Active 2024 Krishan frost [facility] 5 12:22:31 Problem Notes None recorded. Procedures Surgical History Date Name Laterality Status Provider Name and Address Organization Details Recorded Time 03/23 Most Recent Mammogram completed Daja Silva [facility] 5 15:47:03 03/23 Mammogram screening completed Daja Silva [facility] 5 15:46:21 04/19 revision of hip arthroplasty completed Stephanie Thakur [facility] 4 12:51:04 04/17 Total hip arthroplasty completed Stephanie Thakur [facility] 4 09:50:22 06/07 Advanced Care Planning completed Maggy Floyd MD [address], [place], [address] , [facility] 3 10:02:52 08/08 injection into lumbar epidural space completed Stephanie Thakur [facility] 3 11:19:32 02/28 arthroscopic knee operation completed Kareem wilkins MA [facility] 2 14:24:10 04/20 Date of Last Colonoscopy completed Janna Garcia [facility] 1 11:25:32 04/20 Colonoscopy completed April Fernandez [facility] 1 15:10:14 04/20 esophagogastroduodenoscopy completed Rina Fernandez [facility] 1 15:10:37 08/13 Six-Item Cognitive Test completed Juliana Ng MA [facility] 1 10:31:00 06/18 Mini-Cog Test completed Katty Mansfield [facility] 9 14:21:34 04/05 Mini-Cog Test completed Katty Mansfield [facility] 8 10:48:47 02/02 decompression of lumbar spine completed Mookie wilkins MA [facility] 2 14:14:37 12/20 Epidurography completed Tisha Ball [facility] 8 13:36:59 02/21 Fall Risk Assessment completed Katty Mansfield [facility] 7 13:20:20 02/21 Mini-Cog Test completed Katty Mansfield [facility] 7 13:20:30 01/02 Hydrocortisone acetate inj completed Katty Mansfield [facility] 7 11:46:08 10/09 Fall Risk Assessment completed Katty Mansfield [facility] 5 11:21:42 10/09 Mini-Cog Test completed Katty Mansfield [facility] 5 11:21:42 04/17 Cancer Surgery completed Katty Mansfield [facility] 8 10:38:08 07/24 Removal kidney open radical completed Kareem wilkins MA [facility] 8 10:02:10 12/22 Hysterectomy completed Katty Mansfield [facility] 8 10:38:08 07/24 Repair bladder defect completed Mookie wilkins MA [facility] 8 10:01:47 07/24 Breast Biopsy completed Katty Mansfield [facility] 5 11:21:42 02/22 Tubal Ligation completed Katty Mansfield [facility] 8 10:38:08 07/11 Appendectomy completed Katty Mansfield [facility] 8 10:38:08 Removal of ovary(s) completed Jere wilkins MA [facility] 8 10:02:41 Imaging Results None recorded. Procedure Notes None recorded. Medical Equipment None Reported. Allergies Allergen ID Allergen Name Allergen Category Reaction Reaction Severity Criticality Documentation Date Start Date Code Code System Note Provider Name and Address Organization Details Recorded Time 7114 Sporanox medicatio n anaphylax is Not available Not available 02/04/20142013 6 RxNorm SUZY Vaughan [facility] 1 15:59:28 Medications Name Sig Start [...] Updated DateTime 5 165.74 cm 26.4 kg/m2 91212.7 8 g 101 /min 96 % 96 % 97.7 [degF] 123/78 mm[Hg] John perez MA [facility] 5 11:17:40 Date Recorded Body height Body mass index (BMI) Body weight Heart rate Oxygen saturation Oxygen saturation in Arterial blood by Pulse oximetry Body temperature Systolic And Diastolic Provider Name and Address Organization Details Last Updated DateTime 5 165.74 cm 26.8 kg/m2 21291.9 6 g 85 /min 94 % 94 % 98.2 [degF] 135/76 mm[Hg] Heidy Simon MA [facility] 5 12:59:18 Date Recorded Body height Body mass index (BMI) Body weight Oxygen saturation Oxygen saturation in Arterial blood by Pulse oximetry Heart rate Body temperature Systolic And Diastolic Provider Name and Address Organization Details Last Updated DateTime 5 165.74 cm 26.8 kg/m2 27132.3 6 g 98 % 98 % 87 /min 98.1 [degF] 130/81 mm[Hg] Lucita Guzman MA [facility] 5 10:49:21 Date Recorded Body height Provider Name an d Address Organization Details Last Updated DateTime 05/09/2024 165.74 cm Betty Patterson LPN [facility] 05/09/2024 15:18:43 Social History Question Answer Notes LastModified by Organizat ion Details LastModified Time Tobacco Smoking Status Former Smoker Not Available [employer] 05/26/2020 03:36:40 Do You Have An Advance Directive? Yes Information not available 06/14/2022 Is Blood Transfusion Acceptable In An Emergency? Yes [id number] Information not available 05/26/2020 What Is Your Level Of Caffeine Consumption? Moderate 2 Cups Of Coffee Daily [id number] Information not available 05/26/2020 How Much Tobacco Do You Chew? None [id number] Information not available 05/26/2020 In The 14 [...] Type Of Diet Are You Following? REGULAR [id number] Information not available 05/26/2020 Which Illicit Or Recreational Drugs Have You Used? None [id number] Information not available 05/26/2020 When Did You Quit Smoking? 15+yearssin ji josekathy bsvianney Information not available 03/04/2021 Live Alone Or With Others? With Others Keturah Osorio) Information not available 06/14/2022 Do You Take Precautions To Prevent Distracted Driving? Yes KARALIT Information not available 02/21/2017 How Often Do You Need To Have Someone Help You When You Read Instructions, Pamphlets, Or Other Written Material From Your Doctor Or Pharmacy? Never KARALIT Information not available 02/21/2017 Have You Served In The ? No KARALIT Information not available 02/21/2017 Have You Or Anyone In Your Household Had Any Of The Following Symptoms In The Last 14 Days: Sore Throat, Cough, Chills, Body Aches For Unknown Reasons, Shortness Of Breath For Unknown Reasons, Loss Of Smell, Loss Of Taste, Fever At Or Greater Than 100 Degrees Fahrenheit? No KARALIT Information not available 02/17/2020 Are You Or [...] Gathering In The Last 10 Days? No [email or web address] Information not available 08/13/2020 Marital Status Informatio [...] Do You Use Protection During Sex? No [id number] Information not available 05/26/2020 Difficulty Reading? Yes Information not available 06/14/2022 Seat Belts Used Routinely Yes Information not available 06/14/2022 Are You Sexually Active? Yes [id number] Information not available 05/26/2020 Smoke Alarm In Home Yes Information not available 06/14/2022 At What Age Did You Start Smoking Tobacco? 16 Quit At 20 Information not available 04/12/2022 Are You Passively Exposed To Smoke? No Information not available 02/21/2017 How Much Tobacco Do You Smoke? 0.5 PPD [id number] Information not available 05/26/2020 Do You Use Sunscreen Routinely? No [id number] Information not available 05/26/2020 How Many Years Have You Smoked Tobacco? 4 [id number] Information not available 05/26/2020 Difficulty Watching TV? No Information not available 06/14/2022 Do You Have Difficulty Walking Or Climbing Stairs? No Information not available 06/14/2022 Sex: Unknown Functional Status Question Answer Note LastModified by Organizat ion Details LastModified Time Do you or have you ever used smokeless tobacco? Never used smokeless tobacco [id number] Information not available 05/26/2020 Are you currently employed? No retired [id number] Information not available 05/26/2020 [address]iculty driving at night? Yes Information no t available 06/14/2022 Are you able to care for yourself independently? Yes [id number] Information not available 05/26/2020 Do you have difficulty dressing, bathing, grooming, or toileting? No Information not available 06/14/2022 Do you or have you ever used e-cigarettes or vape? Never used electronic cigarettes Information not available 06/14/2022 What is your exercise level? None [id number] Information not available 05/26/2020 Do you use any illicit or recreational drugs? No Information not available 06/14/2022 Do you or have you ever used any other forms of tobacco or nicotine? No Information not available 06/14/2022 What is your level of alcohol consumption? Occasional [id number] Information not available 05/26/2020 Are you able to walk independently without assistance or assistive devices? YESWOREST Information not available 06/14/2022 Do you have difficulty doing errands alone? 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 [email or web address] [facility] [facility] Information not available 01/25/2018 Mental Status Question [...] fibrillation 68 Not available 13:51:22 Brother Malignant neoplasm of colon [email or web address] Not available 15:43:09 Mother Atrial fibrillation Not available 13:51:22 Mother Arthritis 83 [email or web address] Not avail able 04/05/2018 11:38:46 Mother Chronic renal failure 83 Not available 2021 13:51:22 Notes:1 older sister and 1 o lder brother Medical History Condition Response Gout N Other N Kidney Stones N Blood Diseases N Hyperthyroidism N Breast Cancer N Hypothyroidism N Lung Disease N Depression N COPD N Defects or Inherited Disease N Anesthesia Complications N Headaches/Migraines N Anxiety Disorder N Varicose Veins N Obesity N Vision or Eye Problems N Arthritis N Head Injury/Concussion N Infertility N Polyps N Congenital Anomalies N Acid Reflux (GERD) Y Cancer Y Stroke N ADHD N Endometriosis N High Cholesterol N Liver Disease N Fibromyalgia N Kidney Disease N Heart Problems N Ear or Hearing Problems N Hospitalizations N Thyroid Problems N GI Problems N Acne N Eating Disorder N Skin Problems N Anemia N Constipation N Bladder Problems N Mental Illness N Diabetes N Ovarian Cancer N Blood Transfusions N Seizures/Epilepsy N Tuberculosis N AIDS/HIV N Congestive Heart Failure (CHF) N Eczema N Abuse/Domestic Violence N Diverticulitis N Asthma N Allergies Y Reflux/GERD N [...] influenza, unspecified formulation 6 completed April [facility] 02/21/2017 14:02:35 pneumococcal, unspecified formulation 6 completed April frost [facility] 02/21/2017 14:02:55 Pneumococcal conjugate PCV 13 8 completed SUZY Tai [facility] 01/28/2022 09:18:25 Influenza, high-dose, trivalent, PF 8 completed SUZY Avila [facility] 07/15/2021 11:33:10 Influenza, high-dose, trivalent, PF 9 completed Katty Mansfield null, [facility] 06/18/2019 14:18:04 zoster recombinant 0 completed SUZY Tai, [facility] 01/28/2022 09:18:25 Influenza, split virus, quadrivalent, preservative 0 completed SUZY Tai, [facility] 01/28/2022 09:18:25 COVID-19, mRNA, LNP-S, PF, 30 mcg/0.3 mL dose 1 [facility]/04/2021 11:34:30 COVID-19, mRNA, LNP-S, PF, 30 mcg/0.3 mL dose 1 completed SUZY Washington, [facility] 03/04/2021 11:34:51 Influenza, split virus, quadrivalent, preservative 1 completed SUZY Avila, [facility] 07/15/2021 11:33:10 COVID-19, mRNA, LNP-S, PF, 30 mcg/0.3 mL dose 1 completed SUZY Vaughan, [facility] 06/07/2021 16:01:23 zoster live 2 completed SUZY Avila, [facility] 07/15/2021 11:33:10 COVID-19, mRNA, LNP-S, PF, 100 mcg/0.5mL dose or 50 mcg/0.25mL dose 2 completed SUZY Tai, [facility] 01/28/2022 09:18:25 pneumococcal polysaccharide PPV23 5 completed SUZY Tai, [facility] 01/28/2022 09:18:26 influenza, unspecified formulation 6 completed Tia Wiley MA null, [facility] [place] 01/28/2022 09:18:26 Influenza, high-dose, quadrivalent, PF 2 completed Mookie Whitmore MA null, [facility] [place] 12/01/2022 15:02:27 Td (adult), 2 Lf tetanus toxoid, preservative free, adsorbed 0 completed Not Available [facility] 02/04/2014 14:00:31 Tdap 3 completed Not Available [facility] 02/04/2014 14:00:31 Td (adult), 2 Lf tetanus toxoid, preservative free, adsorbed 3 completed Maggy Floyd MD [address], [address], [facility] 06/08/2023 08:17:29 Past Encounters Encounter ID Performer Location Encounter Start Date Encounter Closed Date Diagnosis/Indication Diagnosis SNOMED-CT Code Diagnosis ICD10 Code Diagnosis IMO Codes Diagnosis Note [id number] auto[facility]Comm erce [address] [facility] [place] [address] 09/19/2006 00:00:00 [id number] autoEComm erce [address] [facility] [place] [address] 07/18/2006 00:00:00 [id number] autoEComm erce [address] [facility] [place] [address] 06/29/2006 00:00:00 [id number] autoEComm erce [address] [facility] [place] [address] 05/05/2006 00:00:00 [id number] autoEComm erce [address] [facility] [place] [address] 10/17/2006 00:00:00 [id number] autoEComm erce [address] [facility] [place] [address] 11/20/2006 00:00:00 [id number] auto[address]Comm erce [address] [place] [address] 12/05/2006 00:00:00 [id number] autoEComm erce [address] [place] [address] 01/08/2007 00:00:00 [id number] autoEComm erce [address] [facility] [place] [address] 02/07/2007 00:00:00 [id number] autoEComm erce [address] [place] [address] 02/22/2007 00:00:00 [id number] autoEComm erce [address] [facility] [place] [address] 09/04/2007 00:00:00 [id number] autoEComm erce [address] [facility] [place] [address] 10/19/2007 00:00:00 [id number] autoEComm erce [address] [facility] [place] [address] 11/05/2007 00:00:00 [id number] autoEComm erce [address] [facility] [place] [address] 10/30/2008 00:00:00 [id number] autoEComm erce [address] [facility] [place] [address] 09/01/2009 00:00:00 [id number] autoEComm erce [address] [facility] [place] [address] 09/21/2009 00:00:00 [id number] autoEComm erce [address] [facility] [place] [address] 07/27/2010 00:00:00 [id number] autoEComm erce [address] [facility] [address] [place] [address] 02/04/2011 00:00:00 [id number] autoEComm erce [address] [facility] [place] [address] 05/25/2011 00:00:00 [id number] autoEComm erce [address] [facility] [place], [place] [address] 05/16/2012 00:00:00 [id number] autoEComm erce [address] [place], [place] [address] 08/01/2012 00:00:00 [id number] autoEComm erce [address] [facility] [place], [place] [address] 11/22/2012 00:00:00 [id number] autoEComm erce [address] [facility] [place], [place] [address] 12/27/2012 00:00:00 [id number] autoEComm erce [address] [facility] [place], [place] [address] 08/06/2013 00:00:00 [id number] autoEComm erce [address] [facility] [place] [address] 02/04/2014 00:00:00 [id number] Maggy Floyd MD Main Office [address] [place] [place] [address] [place] [address] 07/01/2014 10:16:40 07/01/2014 10:47:00 Mass of body structure 497257075 mass at lower left back which appears to be a cyst. [id number] Maggy Floyd MD Main Office [address] [address] [place] [address] 10/09/2014 10:46:17 10/09/2014 11:53:11 Adult health examination 998576010 Menopause present 915094238 Administra tion of pneumococcal vaccine 44460764 Allergic rhinitis 72923449 Hypercholesterolemia 06905003 Varicella vaccination 86012707 [id number] Maggy Floyd MD Main Office [address] [address] [place] [address] 01/13/2016 15:38:45 01/13/2016 16:27:38 Generalized osteoarthritis 935569018 M15.9 Osteopenia 325101217 M85 .80 we looked into boniva because it is only once a month but it is not covered by her insurance. She will look at taking the fosomax at different times but will continue with it. She is also taking calcium and vitamin D. Gastroesop hageal reflux disease 025775399 K21.9 She is concerned about calcium absorption while taking prilosec so she will change to an OTC H2 belkis. [id number] Maggy Floyd MD Main Office [address] [address] [place] [address] 02/21/2017 12:53:36 02/21/2017 14:22:37 Adult health examination 113638161 Z00.00 Urinary incontinence 165 029576 R32 She will try an increased dose of vesicare and if her problem persists after one month she will make a urology appointmen t. Osteopenia 762771054 M85 .80 Taking fosomax and tolerating it well. She is also taking calcium and vitamin D. Gastroesop hageal reflux disease 867369756 K21.9 She was concerned about calcium absorption with a PPI but has continued it since she gets symptom relief. Insomnia 366342062 G47.0 0 Uses prn and it helps. Single austen or depressive episode 936604930 F32.9 Under control with meds. Hyperlipidemia 59769042 E78.5 Not on meds; check fasting level. Varicella vaccination 68 219770 Z23 Administra tion of pneumococcal vaccine 47651126 Z23 Screening for malignant neoplasm of breast 964419037 Z12.39 Hearing loss 46913284 H9 1.93 [id number] Maggy Floyd MD Main Office [address] [address] [place] [address] 09/27/2017 08:45:11 09/27/2017 09:49:54 Insomnia 918945399 G47.00 Uses prn and it helps. Degenerati on of lumbar intervertebral disc 16751882 M51.36 [id number] Maggy Floyd MD Main Office [address] [address] [place] [address] 12/04/2017 10:52:56 12/04/2017 11:59:03 Lymphadenopathy 74515943 R59.9 These are chronic and seen on imaging for more than 10 years. Small, benign and no further work-up is needed. [id number] ELLIE Martinez Main Office [address] [address] [place] [address] 01/25/2018 09:36:11 01/25/2018 10:36:45 Pre-surgery evaluation 493265070 Z01.818 According to Mcqueen stone-op risk assessment , patient has 0.36% risk of stone-op MN or cardiac arrest. EKG unchanged from 2010, no acute abnormalit y, labs and CXR are pending. No further work-up necessary, may proceed as scheduled. Urinary incontinence 165 290251 R32 Degenerati on of lumbar intervertebral disc 98064453 M51.36 having L4-L5 decompress ion and fusion 02/[address] Ephraim Rubalcava 82278839 R53.83 [id number] Maggy Floyd MD Main Office [address] [place] [address] 02/08/2018 09:48:24 02/08/2018 10:13:39 [id number] Maggy Floyd MD Main Office [address] [place] [address] 04/05/2018 10:33:16 04/05/2018 11:59:31 Adult health examination 226260863 Z00.00 Hyperlipidemia 35243806 E78.5 Not on meds; check fasting level. Spinal fernando nosis of lumbar region 32288084 M48.061 resolved with surgery Insomnia 752388522 G47.0 0 Uses prn ambien and it helps. [id number] Maggy Floyd MD Main Office [address] [place] [address] 09/14/2018 08:46:31 09/14/2018 09:21:14 Plantar fasciitis 312068763 M72.2 will refer to podiatry, take meloxicam once daily as directed with food. ice, elevate, wear fasciitis sleeve, supportive shoes, do not walk barefoot, continue exercises. [id number] Maggy Floyd MD Main Office [address] [address] [place] [address] 10/03/2018 10:09:39 10/03/2018 11:03:57 Hyperlipidemia 62821892 E78.5 Not on meds; check fasting level. Urinary incontinence 165 715736 R32 She would like to go down on her vesicare dose because of constipati on which started after increasing the dose. Major depr essive disorder 619310786 F32.9 She feels that this is no longer under good control so will increase her dose of fluoxetine . Osteophyte of bone 68817 41450 09098 M77.9 Bone spur at the left heel. Followed by podiatry. Panniculitis 08187853 M7 9.3 [id number] Maggy Floyd MD Main Office [address] [facility] [address] [place] [address] 06/18/2019 14:08:42 06/18/2019 15:10:03 Adult health examination 055778157 Z00.00 UTD with immunizati ons except due for an updated shingles vaccine. Had a colonoscop y done last year. Hyperlipidemia 68804537 E78.5 Not on meds; check fasting level. Osteoporosis 25881946 M8 1.0 Major depr essive disorder 189672645 F32.1 She feels that this is no longer under good control so will add wellbutrin to her regimen. Solitary n odule of lung 821386394 R91.1 [id number] Maggy Floyd MD [facility] [address] [facility] [address] [place] [address] 02/17/2020 13:26:01 02/17/2020 15:03:20 Insomnia 466823975 G47.00 Uses prn ambien and it helps. Major depr essive disorder 859574951 F32.1 She feels that this is no longer under good control so will add wellbutrin to her regimen. Urinary bl adder problem 496110417 N32.9 Anxiety state 890139206 F41.1 [id number] Maggy Floyd MD Main Office [address] [facility] [address] [place] [address] 08/13/2020 10:14:55 08/13/2020 11:20:20 Adult health examination 822295836 Z00.00 UTD with immunizati ons. Had one shingles shot and will be returning for her second one. Had a colonoscop y done in 2018 but because of a poor prep she was advised to repeat it in 1 year. She has not done so yet. Screening for malignant neoplasm of breast 900340838 Z12.39 Screening for malignant neoplasm of colon 994768245 Z12.11 Had a colonoscop y in 2018 but a repeat was recommende d because of poor prep. She will make her own appointmen t. Pain of mu ltiple joints 45702352 M25.50 Fhx of RA. Will do screening labs and refer to rheum. Hyperlipidemia 59188375 E78.5 Not on meds; check fasting level. Major depr essive disorder 685466955 F32.1 Doing well on prozac and wellbutrin . [id number] ELLIE Martinez Main Office [address] [facility] [address] [place] [address] 03/04/2021 11:16:20 03/04/2021 11:55:55 Insomnia 334956274 G47.00 just filled zolpidem 03/03 with 2 refills. Anxiety state 574047724 F41.1 Single austen or depressive episode 782812555 F32.1 Feeling depressed, will increase fluoxetine to 40mg for now, she has been taking 30mg. F/u with PCP in 3 months for recheck. Fatigue 35348965 R53.83 will check labs Vitamin D deficiency 347 66782 E55.9 Low back pain 833098367 M54.5 s/p surgery 3 years ago. will check XR. [id number] Savannah monreal MD Main Office [address] [facility] [address] [place] [address] 06/07/2021 15:21:32 06/07/2021 16:32:44 Pre-surgery evaluation 561355390 Z01.818 Patient is at low risk for cardiopulm onary complicati ons with planned procedure based on comorbidit ies, good exertional tolerance and overall procedure risk. Patient advised to avoid aspirin and NSAIDS for 7 days prior. May proceed to scheduled surgery as planned. Hold meds am of procedure Mcqueen 0.2% Cramp in lower limb 4499 36246 R25.2 try tonic water at night, labs today, stretching Abnormal urine odor 8769 003 R82.90 check urine Bilateral cataracts 9572 2004 H26.9 having surgery for this with progressiv e vision changes [id number] Maggy Floyd MD Main Office [address] [place] [address] 07/15/2021 11:23:35 07/15/2021 12:21:52 Increased frequency of urination 551318402 R35.0 Urine dip looks negative and last urine was also normal but she was treated with 5 days of bactrim. Will order another send out UA with reflex culture and will not treat until results are back. If she does not have a UTI and the symptoms persist we will do a urology referral for further evaluation . [id number] Jarad Bains MD [facility] [address] [place], [place] [address] 01/28/2022 08:30:44 01/28/2022 10:31:02 Pain of left knee joint 6865290805 14430 M25.562 [id number] Maggy Floyd MD Main Office [address] [place] [address] [place], [place] [address] 02/22/2022 09:55:47 02/22/2022 10:33:59 Pre-surgery evaluation 464674841 Z01.818 She is low-risk for surgery and cleared for her upcoming left knee surgery. Tear of me dial meniscus of knee 000678627 S83.242A Having repair of her left medial meniscus done 02/28/[address] Templeton. [id number] Maggy Floyd MD Main Office [address] [place], [place] [address] 04/12/2022 14:08:29 04/12/2022 14:57:50 Left lower quadrant pain 154237862 R10.32 will check labs and urine. History of nephrectomy 3335755393 9104 Z90.5 left, she has one kidney, has been taking nsaids and tylenol Piriformis syndrome 1291 67240 G57.02 Suspect piriformis syndrome causing LLQ and left SI joint pain, will check XRs, muscle relaxer and heat as needed. stretches as tolerated. Pain of sa croiliac joint 948489111 M53.3 Gastroesop hageal reflux disease 543800801 K21.9 tums not helping, GERD sx. will check labs. [id number] Maggy Floyd MD Main Office [address] [facility] [address] [place] [address] 06/14/2022 13:51:03 06/14/2022 14:37:46 Pain of left hip joint 2620120865 24555 M25.552 [id number] Manuel Beasley MD Main Office [address] [facility] [address] [place] [address] 12/01/2022 14:49:15 12/01/2022 15:57:04 Easy bruising 607543283 R58 not on AC or aspirin, will check labs for further evaluation advised pt to be more gentle when applying moisturizi ng lotion, avoid 'banging' into things, and to stay well hydrated [id number] Maggy Floyd MD Main Office [address] [facility] [address] [place] [address] 06/07/2023 09:18:08 06/07/2023 10:36:41 Adult health examination 238782818 Z00.00 UTD with immunizati ons including COVID [...] get another one. Advance care planning 71 9588441 Z71.89 Discussed HCP and MOLST forms. Requires a tetanus booster 814980719 Z23 Dyspnea on exertion 6084 5006 R06.09 [facility]. She has a remote smoking history but her peak flow in the office was 360 which is normal for her age, sex and height. Her EKG shows a prolonged QT. Will refer to cardiology for further evaluation . At [facility] ed risk for falls 809013521 Z91.81 She often feels unsteady on her feet. Hyperlipidemia 08347101 E78.5 Not on meds; check fasting level. [id number] Manuel Beasley MD Main Office [address] [facility] [address] [place] [address] 12/26/2023 14:33:48 12/26/2023 15:55:56 Pain of left thigh 0174061456 07823 M79.652 Presenting for chronic pain in the [...] t, will send referral for Orthopedic s. [id number] Manuel Beasley MD [facility] [address] [facility] [address] [place] [address] 01/08/2024 12:39:47 01/08/2024 13:44:12 Pain of left thigh 6830324540 72080 M79.652 Presenting for chronic pain in the [...] t for consult on this ongoing issue. [id number] Maggy Floyd MD Main Office [address] [address] [place] [address] 05/07/2024 08:11:45 05/07/2024 11:42:11 [id number] Maggy Floyd MD [address] [address] [place] [address] 05/09/2024 15:11:05 05/14/2024 08:58:23 Intertrochanteric fracture 989329870 S72.142A Followed by Dr Donato and has a f/u 05/31/24. Currently pain is controlled with oxycodone and tylenol. Receiving PT and OT. Not yet weight bearing. Osteoporosis 91788742 M8 1.0 Restart calcium Anemia 398091632 D64.9 Received 4 units PRBC's in the hospital. Will check to ensure bleeding has stopped. [id number] Maggy Floyd MD Main Office [address] [address] [place] [address] 10/07/2024 10:49:39 10/07/2024 12:08:34 Dyspnea 535692548 R06.00 Exertional SOB and fatigue for 3 weeks post-COVID infection. Lungs clear to auscultati on, no audible wheezing. Did not have symptoms of prior to COVID infection. We will order CBC (hx of anemia), CMP, and pro bnp. Vitamin D deficiency 347 95301 E55.9 Pt has hx of vitamin D deficiency and is not currently taking supplement s. Will check Vit D levels. Fatigue 47243525 R53.83 Increased fatigue 3 weeks post-COVID infection without significan t improvemen t. Will check TSH to r/o hypothyroi dism. 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 Provoked by surgery in March. Pt. has f/u with vascular in October. Will continue Eliquis as directed until then. [id number] Maggy Floyd MD Main Office [address] [facility] [address] [place] [address] 12/13/2024 12:44:14 12/13/2024 13:51:12 Adult health examination 011883556 Z00.00 UTD with immunizati ons including COVID [...] one. Screening for malignant neoplasm of breast 911961690 Z12.39 She will make her own appointmen t Pure hypercholesterolemia 715156928 E78.00 05950 Insomnia 553184337 G47.0 0 Uses prn ambien and it helps. Pain of le ft hip joint 2237581377 62688 M25.552 Severe austen or depression 435479907 F32.2 392528 She is on meds that don't seem to be helping. Much of her depression is related to her chronic left hip and leg pain. We will treat that first and then address her depression again. [id number] Maggy Floyd MD Main Office [address] [facility] [address] [place] [address] 01/17/2025 10:39:12 01/17/2025 11:14:55 Preoperative state 19582893 Z01.818 [id number] No medical contraindi cations to proposed procedure. Richar Perioperat jose Cardiac Risk was calculated and the risk for perioperat jose MN is <1%. May proceed to surgery as planned. Pain of le ft hip joint 5807680602 05537 M25.552 pre-operat jose medical clearance for left total hip revision on 02/18/[address] Jj Donato ( ) of [facility] Under general anesthesia with a block Health Concerns Section Related Observation LastModified by Organization Detai ls LastModified Time None Recorded Concern Status LastModified by Organization Details LastModified Time None Recorded Advance Directives Directive Y: Payers Insurance Date Sequence Insurance Name Policy Number Policy Gallegos Covered Member ID Gallegos Member ID Guarantor Name 01/27/2025 2 [employer] Courtney S Jonnathan [id number] Courtney S Jonnathan 01/17/2025 1 MEDICARE [place]: [employer] Courtney S Jonnathan [id number] Courtney S Jonnathan Notes Date Note Type Note Provider Name and Address Organization Details Recorded Time 4 text/html Hospitalization Contact RecordReported by PatientHospitalization Contact RecordFor follow up, patient reportshospital: snf,admit date: (please enter in format 'mm/dd/yyyy') (04/24/2024),date of discharge: (please enter in format 'mm/dd/yyyy') (05/03/2024), anddate of contact: (please enter in format 'mm/dd/yyyy') ([facility]07/[facility]Medicare covered inpatient stay? yesMedicare CONI with in 48 working hours? yesHigh Complexity code valid on or before:AprilModerate Complexity code valid on or before:AprilHCP on file? yesMOLST on file? noDischarge Summary available? yes 74 [facility] further medical management and re conditioning due to left hip fracture reconstruction. Patient is not weight bearing in wheel chair at this time. Patient to see ortho on 05/31/2024 will evaluate if able to bear weight at this time. During rehab stay was receiving PT, OT senior living . Patient is on strict protocol due [...] pm with PCP. Maggy Floyd MD [address], [address], [facility] 05/07/2024 11:42:08 4 text/html Hospitalization Contact RecordReported by PatientHospitalization Contact RecordFor follow up, patient reportshospital: snf,admit date: (please enter in format 'mm/dd/yyyy') (04/24/2024),date of discharge: (please enter in format 'mm/dd/yyyy') (05/03/2024), anddate of contact: (please enter in format 'mm/dd/yyyy') (05/07/2024)([facility]).Medicare covered inpatient stay? yesMedicare CONI with in 48 working hours? yesHigh Complexity code valid on or before:AprilModerate Complexity code valid on or before:AprilHCP on file? yesMOLST on file? noDischarge Summary available? yes 74 year old female was admitted to [facility] on 04/24/2204 for further medical management and re conditioning due to left hip fracture reconstruction. Patient is not weight bearing in wheel chair at this time. Patient to see ortho on 05/31/2024 will evaluate if able to bear weight at this time. During rehab stay was receiving PT, OT senior living . Patient is on strict protocol due [...] at this time. She was admitted to [facility] for a routine left hip replacement secondary [...] tylenol for the pain. Maggy Floyd MD [address] [address], [place], [address], [facility], [place] [facility] 05/10/2024 09:07:39 5 text/html FatigueReported by [...] been taking omeprazole. Ilda Booker PA-C [address] [address], [place], [address], [facility] 10/07/2024 13:14:57 5 text/html Medicare Annual Wellness [...] opinion before proceeding. Maggy Floyd MD [address] [address], [place], [address], [facility] 12/14/2024 08:53:06 5 text/html ROS as noted in the HPI Courtney is a 74yr old F who presents for pre-operative medical clearance for left total hip revision on 02/18/[address] Jj Donato ( ) of [facility]. Under general anesthesia with a block. [...] fever, chills, and nausea/vomiting. MAKEDA KULKARNI [address] [facility] [address], [place], [address], [facility] 01/17/2025 11:26:39 OBGyn Episode No OBEpisode recorded.
--- OUTSIDE RECORDS SUMMARY | 2025-06-07 20:00 | XMS_ITS | Clinical Summary ---
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 Ordering Clinician Indication Dosage Frequency Signature (SIG) Comments Components aspirin 325 mg tablet 2023-07 00:00: 00 01-29 23:59 :00 No [id number] NSAID 325 mg 2 TIMES DAILY 325 mg 2 TIMES DAILY (route: oral) Med Classific ation: Analgesic , Anti-infl ammatory or Antipyret ic oxycodone 5 mg capsule 2023-07 00:00: 00 01-29 23:59 :00 No [id number] PAIN 5 mg EVERY 6 HOURS 5 mg EVERY 6 HOURS (route: oral) Med Classific ation: Analgesic , Anti-infl ammatory or Antipyret ic Prozac 40 mg capsule 2023-07 00:00: 00 01-29 23:59 :00 No [id number] DEPRESSION 40 mg DAILY 40 mg DAILY (route: oral) Med Classific ation: Central Nervous System Agents Tylenol 325 mg capsule 2023-07 00:00: 00 01-29 23:59 :00 No [id number] PAIN MED 975 mg 3 TIMES DAILY 975 mg 3 TIMES DAILY (route: oral) Med Classific ation: Analgesic , Anti-infl ammatory or Antipyret ic Vesicare 10 mg tablet 2023-07 00:00: 00 01-29 23:59 :00 No [id number] OVERACTIVE BLADDER 5 mg DAILY 5 mg DAILY (route: oral) Med Classific ation: Genitouri nary Therapy Wellbutrin XL 150 mg 24 hr tablet, extended release 2023-07 00:00: 00 01-29 23:59 :00 No [id number] DEPRESSION 150 mg DAILY 150 mg DAILY (route: oral) Med Classific ation: Central Nervous System Agents Calcium 600 + D(3) 600 mg-10 mcg (400 unit) tablet 2023-0724 00:00: 00 01-29 23:59 :00 No [id number] SUPPLEMENT 1 tablet 2 TIMES DAILY 1 tablet 2 TIMES DAILY (route: oral) Med Classific ation: Electroly te Balance-N utritiona l Products atorvastati n 10 mg tablet 04-10 00:00: 00 Yes [id number] HIGH CHOLESTEROL 1 tablet DAILY 1 tablet DAILY (route: oral) Med Classific ation: Cardiovas cular Therapy Agents bupropion HCl 150 mg tablet,12 hr sustained-r elease(smok ing deterrent) 04-10 00:00: 00 Yes [id number] DEPRESSION 1 tablet DAILY 1 tablet DAILY (route: oral) Med Classific ation: Chemical Dependenc y, Agents to Treat enoxaparin 40 mg/0.4 mL subcutaneou s syringe 04-10 00:00: 00 Yes [id number] BLOOD THINNER Per instruc tions DAILY Per instructio ns DAILY (route: subcutaneo us) Med Classific ation: Hematolog ical Agents fluoxetine 40 mg capsule 04-10 00:00: 00 Yes [id number] DEPRESSION 1 capsule DAILY 1 capsule DAILY (route: oral) Med Classific ation: Central Nervous System Agents oxycodone 5 mg tablet 04-10 00:00: 00 Yes [id number] PAIN 1 tablet EVERY 4 HOURS 1 tablet EVERY 4 HOURS (route: oral) Med Classific ation: Analgesic , Anti-infl ammatory or Antipyret ic solifenacin 5 mg tablet 04-10 00:00: 00 Yes [id number] OAB 1 tablet DAILY 1 tablet DAILY (route: oral) Med Classific ation: Genitouri nary Therapy Vitamin D3 10 mcg (400 unit) capsule 04-10 00:00: 00 Yes [id number] VITAMIN 1 capsule DAILY 1 capsule DAILY (route: oral) Med Classific ation: Electroly te Balance-N utritiona l Products senna 8.6 mg tablet 04-08 00:00: 00 Yes [id number] CONSTIPATIO N 2 tablet DAILY 2 tablet DAILY (route: oral) Med Classific ation: Gastroint estinal Therapy Agents Colace 100 mg capsule 04-08 00:00: 00 Yes [id number] CONSTIPATIO N 1 capsule 2 TIMES DAILY 1 capsule 2 TIMES DAILY (route: oral) Med Classific ation: Gastroint estinal Therapy Agents Vital Signs Vital Name Observation Time Observation Value Commen ts Temperature 2025-05-06 20:25:00.000 98.1 [degF] Temperature 2025-04-28 09:30:00.000 97.9 [degF] Temperature 2025-04-23 09:04:00.000 98 [degF] Temperature 2025-04-22 14:11:00.000 98.4 [degF] Temperature 2025-04-18 11:34:00.000 98.3 [degF] Temperature 2025-04-16 08:35:00.000 97.7 [degF] Temperature 2025-04-14 17:29:00.000 97.3 [degF] Temperature 2025-04-14 10:09:00.000 97.4 [degF] Temperature 2025-04-10 09:53:00.000 97.1 [degF] BMI (%) 2025-04-10 09:25:55.000 26 kg/m2 Height 2025-04-10 09:25:49.000 66 [in_us] Pulse 2025-05-06 20:25:00.000 66 /min Pulse 2025-04-28 09:30:00.000 67 /min Pulse 2025-04-23 09:04:00.000 68 /min Pulse 2025-04-22 14:11:00.000 68 /min Pulse 2025-04-18 11:34:00.000 66 /min Pulse 2025-04-16 08:35:00.000 68 /min Pulse 2025-04-14 17:29:00.000 70 /min Pulse 2025-04-14 10:09:00.000 65 /min Pulse 2025-04-10 09:53:00.000 68 /min O2 Saturation (%) 2025-05-06 20:25:00.000 98 % O2 Saturation (%) 2025-04-28 09:31:00.000 98 % O2 Saturation (%) 2025-04-23 09:05:00.000 98 % O2 Saturation (%) 2025-04-22 14:11:00.000 97 % O2 Saturation (%) 2025-04-18 11:34:00.000 98 % O2 Saturation (%) 2025-04-16 08:36:00.000 97 % O2 Saturation (%) 2025-04-14 17:30:00.000 97.3 % O2 Saturation (%) 2025-04-14 10:10:00.000 97 % O2 Saturation (%) 2025-04-10 09:53:00.000 96 % Respirations 2025-05-06 20:25:00.000 18 /min Respirations 2025-04-28 09:30:00.000 18 /min Respirations 2025-04-23 09:04:00.000 18 /min Respirations 2025-04-22 14:11:00.000 18 /min Respirations 2025-04-18 11:34:00.000 18 /min Respirations 2025-04-16 08:35:00.000 18 /min Respirations 2025-04-14 17:29:00.000 18 /min Respirations 2025-04-14 10:09:00.000 18 /min Respirations 2025-04-10 09:53:00.000 16 /min Weight (lbs) 2025-04-10 09:25:55.000 165 [lb_av] Systolic Blood Pressure 2025-05-06 20:25:00.000 120 mm [Hg] Systolic Blood Pressure 2025-04-28 09:30:00.000 118 mm [Hg] Systolic Blood Pressure 2025-04-23 09:04:00.000 116 mm [Hg] Systolic Blood Pressure 2025-04-22 14:11:00.000 114 mm [Hg] Systolic Blood Pressure 2025-04-18 11:34:00.000 112 mm [Hg] Systolic Blood Pressure 2025-04-16 08:35:00.000 112 mm [Hg] Systolic Blood Pressure 2025-04-14 17:29:00.000 118 mm [Hg] Systolic Blood Pressure 2025-04-14 10:09:00.000 108 mm [Hg] Systolic Blood Pressure 2025-04-10 09:53:00.000 104 mm [Hg] Diastolic Blood Pressure 2025-05-06 20:25:00.000 62 mm [Hg] Diastolic Blood Pressure 2025-04-28 09:30:00.000 64 mm [Hg] Diastolic Blood Pressure 2025-04-23 09:04:00.000 64 mm [Hg] Diastolic Blood Pressure 2025-04-22 14:11:00.000 62 mm [Hg] Diastolic Blood Pressure 2025-04-18 11:34:00.000 70 mm [Hg] Diastolic Blood Pressure 2025-04-16 08:35:00.000 [...] CONSULTING PHYSICIANS, RN TO OBSERVE AND ASSESS, UTILIZATION REVIEWER/AGRONOMY INTERNSHIP TO OBSERVE FOR RISK FOR FALLS AND INSTRUCT IN FALL PREVENTION, HOME SAFETY, MEDICATION MANAGEMENT, INFECTION PREVENTION, AND NUTRITION MANAGEMENT. RN/UTILIZATION REVIEWER/AGRONOMY INTERNSHIP NURSE MAY PERFORM O2 SATURATION LEVEL ON ADMISSION AND PRN FOR RN TO ASSESS/UTILIZATION REVIEWER TO OBSERVE PATIENT, WITH NOTIFICATION TO THE PHYSICIAN IF SATURATION IS 90% IN THE ABSENCE OF MORE SPECIFIC PARAMETERS FROM THE PHYSICIAN. AGENCY MAY PERFORM A RESUMPTION OF CARE VISIT FOLLOWING ANY HOSPITAL ADMISSION. RN/UTILIZATION REVIEWER/AGRONOMY INTERNSHIP TO MONITOR CO-MORBID CONDITIONS LISTED ON THE PLAN OF CARE AND ANY NEW CONDITIONS THAT PRESENT THEMSELVES DURING THIS EPISODE TO IDENTIFY CHANGES AND INTERVENE TO MINIMIZE COMPLICATIONS. [code = RN TO OBSERVE, ASSESS, EVALUATE, AND DEVELOP AN INDIVIDUALIZED PLAN OF CARE. AGENCY MAY ACCEPT ORDERS FROM CONSULTING PHYSICIANS, RN TO OBSERVE AND ASSESS, UTILIZATION REVIEWER/AGRONOMY INTERNSHIP TO OBSERVE FOR RISK FOR FALLS AND INSTRUCT IN FALL PREVENTION, HOME SAFETY, MEDICATION MANAGEMENT, INFECTION PREVENTION, AND NUTRITION MANAGEMENT. RN/UTILIZATION REVIEWER/AGRONOMY INTERNSHIP NURSE MAY PERFORM O2 SATURATION LEVEL ON ADMISSION AND PRN FOR RN TO ASSESS/UTILIZATION REVIEWER TO OBSERVE PATIENT, WITH NOTIFICATION TO THE PHYSICIAN IF SATURATION IS 90% IN THE ABSENCE OF MORE SPECIFIC PARAMETERS FROM THE PHYSICIAN. AGENCY MAY PERFORM A RESUMPTION OF CARE VISIT FOLLOWING ANY HOSPITAL ADMISSION. RN/UTILIZATION REVIEWER/AGRONOMY INTERNSHIP TO MONITOR CO-MORBID CONDITIONS LISTED ON THE PLAN OF CARE AND ANY NEW CONDITIONS THAT PRESENT THEMSELVES DURING THIS EPISODE TO IDENTIFY CHANGES AND INTERVENE TO MINIMIZE COMPLICATIONS.] Future Scheduled Test MEDICATION MANAGEMENT; RN/UTILIZATION REVIEWER/AGRONOMY INTERNSHIP TO REVIEW MEDICATIONS FOR INTERACTIONS, EFFECTIVENESS OF DRUG THERAPY, AND SIGNS/SYMPTOMS OF ADVERSE REACTIONS. MAY INSTRUCT AND REINFORCE MEDICATION TEACHING RELATED TO THE USE OF MEDICATIONS, DOSAGE, FREQUENCY, PURPOSE, SIDE EFFECTS, AND TO REPORT COMPLICATIONS. [code = MEDICATION MANAGEMENT; RN/UTILIZATION REVIEWER/AGRONOMY INTERNSHIP TO REVIEW MEDICATIONS FOR INTERACTIONS, EFFECTIVENESS OF DRUG THERAPY, AND SIGNS/SYMPTOMS OF ADVERSE REACTIONS. MAY INSTRUCT AND REINFORCE MEDICATION TEACHING RELATED TO THE USE OF MEDICATIONS, DOSAGE, FREQUENCY, PURPOSE, SIDE EFFECTS, AND TO REPORT COMPLICATIONS.] Future Scheduled Test RN TO ASSE SS/TEACH, UTILIZATION REVIEWER,AGRONOMY INTERNSHIP TO OBSERVE AND TEACH MEASURES FOR RECOVERY AND SELF MANAGEMENT POST HIP REPLACEMENT TO MINIMIZE COMPLICATIONS AND REDUCE RISK OF HOSPITALIZATION. [code = RN TO ASSESS/TEACH, UTILIZATION REVIEWER,AGRONOMY INTERNSHIP TO OBSERVE AND TEACH MEASURES FOR RECOVERY AND SELF MANAGEMENT POST HIP REPLACEMENT TO MINIMIZE COMPLICATIONS AND REDUCE RISK OF HOSPITALIZATION.] Future Scheduled Test RN TO ASSE SS/TEACH, UTILIZATION REVIEWER/AGRONOMY INTERNSHIP TO OBSERVE/TEACH SURGICAL AFTERCARE MANAGEMENT TO AVOID HOSPITALIZATION. [code = RN TO ASSESS/TEACH, UTILIZATION REVIEWER/AGRONOMY INTERNSHIP TO OBSERVE/TEACH SURGICAL AFTERCARE MANAGEMENT TO AVOID HOSPITALIZATION.] Future Scheduled Test RN TO ASSE SS/TEACH, UTILIZATION REVIEWER,AGRONOMY INTERNSHIP TO OBSERVE AND TEACH MEASURES FOR SELF-MANAGEMENT POST A SURGICAL HIP REPLACEMENT OR FEMUR FRACTURE TO MINIMIZE COMPLICATIONS AND REDUCE RISK OF HOSPITALIZATION. [code = RN TO ASSESS/TEACH, UTILIZATION REVIEWER,AGRONOMY INTERNSHIP TO OBSERVE AND TEACH MEASURES FOR SELF-MANAGEMENT POST A SURGICAL HIP REPLACEMENT OR FEMUR FRACTURE TO MINIMIZE COMPLICATIONS AND REDUCE RISK OF HOSPITALIZATION.] Future Scheduled Test PAIN MANAG EMENT; RN TO ASSESS AND TEACH, AGRONOMY INTERNSHIP/UTILIZATION REVIEWER TO OBSERVE AND TEACH AND PROVIDE EDUCATION ON PAIN MANAGEMENT TECHNIQUES. [code = PAIN MANAGEMENT; RN TO ASSESS AND TEACH, AGRONOMY INTERNSHIP/UTILIZATION REVIEWER TO OBSERVE AND TEACH AND PROVIDE EDUCATION ON PAIN MANAGEMENT TECHNIQUES.] Future Scheduled Test BLOOD CLOT MANAGEMENT; RN TO ASSESS AND TEACH/ UTILIZATION REVIEWER /AGRONOMY INTERNSHIP TO OBSERVE AND TEACH AND PROVIDE EDUCATION ON BLOOD CLOT MANAGEMENT. [code = BLOOD CLOT MANAGEMENT; RN TO ASSESS AND TEACH/ UTILIZATION REVIEWER /AGRONOMY INTERNSHIP TO OBSERVE AND TEACH AND PROVIDE EDUCATION ON BLOOD CLOT MANAGEMENT.] Future Scheduled Test FALL REDUC TION MANAGEMENT; RN TO ASSESS AND OBSERVE, UTILIZATION REVIEWER/AGRONOMY INTERNSHIP TO OBSERVE FALL RISK FACTORS AND EDUCATE PATIENT/CAREGIVER ON STRATEGIES TO MINIMIZE THE RISK OF FALLING. [code = FALL REDUCTION MANAGEMENT; RN TO ASSESS AND OBSERVE, UTILIZATION REVIEWER/AGRONOMY INTERNSHIP TO OBSERVE FALL RISK FACTORS AND EDUCATE [...] TO EVALUATE, OBSERVE / ASSESS, AND MONITOR, PIECE MAKER TO OBSERVE AND MONITOR, PROVIDE SKILLED THERAPEUTIC INTERVENTION, ACTIVITY, EDUCATION, AND TRAINING TO ADDRESS; PT/PIECE MAKER TO PROVIDE GAIT TRAINING FOR IMPROVED MOBILITY AND /OR TO NORMALIZE GAIT PATTERN THERAPEUTIC EXERCISES AND ESTABLISHING A HOME EXERCISE PROGRAM (PT/PIECE MAKER) PT/PIECE MAKER TO PROVIDE STAIR TRAINING BED TRANSFERS (PT/PIECE MAKER) SIT TO/FROM STAND TRANSFERS (PT/PIECE MAKER) PT / PIECE MAKER TO MONITOR AND EDUCATE ON OXYGEN SATURATION DURING ADLS/IADLS, NOTIFY PHYSICIAN AND/OR THE RN CLINICAL OIL SALES AND SERVICE REP FOR PHYSICIAN NOTIFICATION AND IF O2 SATS BELOW PHYSICIAN ORDERED PARAMETERS AFTER 10 MIN OF REST PT / PIECE MAKER TO EDUCATE ON HIP REPLACEMENT SELF-MANAGEMENT PT/PIECE MAKER TO IDENTIFY FALL RISK FACTORS; EDUCATE THE PATIENT/CAREGIVER ON WAYS TO REDUCE FALL RISK FACTORS AND ESTABLISH HOME EXERCISE PROGRAM TO MINIMIZE FALL RISK. MAY TEACH THE PATIENT FLOOR RECOVERY WHEN CLINICALLY APPROPRIATE PT / PIECE MAKER MAY EDUCATE ON PAIN MANAGEMENT CLINICALLY INDICATED, INCLUDING NON-PHARMACOLOGICAL PAIN REDUCTION TECHNIQUES. [code = AGENCY MAY PERFORM A RESUMPTION OF CARE VISIT FOLLOWING ANY HOSPITAL ADMISSION. PT TO EVALUATE, OBSERVE / ASSESS, AND MONITOR, PIECE MAKER TO OBSERVE AND MONITOR, PROVIDE SKILLED THERAPEUTIC INTERVENTION, ACTIVITY, EDUCATION, AND TRAINING TO ADDRESS; PT/PIECE MAKER TO PROVIDE GAIT TRAINING FOR IMPROVED MOBILITY AND /OR TO NORMALIZE GAIT PATTERN THERAPEUTIC EXERCISES AND ESTABLISHING A HOME EXERCISE PROGRAM (PT/PIECE MAKER) PT/PIECE MAKER TO PROVIDE STAIR TRAINING BED TRANSFERS (PT/PIECE MAKER) SIT TO/FROM STAND TRANSFERS (PT/PIECE MAKER) PT / PIECE MAKER TO MONITOR AND EDUCATE ON OXYGEN SATURATION DURING ADLS/IADLS, NOTIFY PHYSICIAN AND/OR THE RN CLINICAL OIL SALES AND SERVICE REP FOR PHYSICIAN NOTIFICATION AND IF O2 SATS BELOW PHYSICIAN ORDERED PARAMETERS AFTER 10 MIN OF REST PT / PIECE MAKER TO EDUCATE ON HIP REPLACEMENT SELF-MANAGEMENT PT/PIECE MAKER TO IDENTIFY FALL RISK FACTORS; EDUCATE THE PATIENT/CAREGIVER ON WAYS TO REDUCE FALL RISK FACTORS AND ESTABLISH HOME EXERCISE PROGRAM TO MINIMIZE FALL RISK. MAY TEACH THE PATIENT FLOOR RECOVERY WHEN CLINICALLY APPROPRIATE PT / PIECE MAKER MAY EDUCATE ON PAIN MANAGEMENT CLINICALLY INDICATED, [...] End Date/Time Encounter Type Admission Type Attending [facility] Department Encounter ID Discharge Date Discharge Status Discharge Condition Discharge Reason Percent Goals Met 2025-04-10 00:00:00 2025-06-08 00:00:00 Outpatient [place] [facility] [id number] 48.00
== END 2025-05-15 14:53 | disposition home or self-care (01) ==
LOC: HO.HOS 13:57
PROVIDERS: Visit Provider Orthopaedic Surgery
DX: Z98.890 Other specified postprocedural states (principal); Z87.81 Personal history of (healed) traumatic fracture
CPT/HCPCS: 99024

== ENCOUNTER → 2025-05-15 14:03 | Outpatient (BNV) | payer MEDICARE, SELFPAY | PROVIDERS: Visit Provider Radiology Diagnostic Radiology | DX: M25.552 Pain in left hip (principal); Z96.642 Presence of left artificial hip joint | CPT/HCPCS: 72170 ==

== ENCOUNTER 2025-06-26 08:02 | Outpatient (REF) | payer MEDICARE, SELFPAY ==
--- OUTSIDE RECORDS SUMMARY | 2025-01-30 06:34 | XMS_ITS | Continuity of Care Document ---
Author Organization [facility] Address [address] [place] [address] Phone Care Team Providers Care Muffler Tender Name Role Phone Van KAY, RVT, RPVI, [...] Providers Copied on Encounter [facility], [address] [place] [address] [address], [id number], [phone] CVR - [place] No Information 5 Van KAY RVT, RUKHSANA Hernandez. [address] [place] [address], [place], [place], [id number] , [place]. tel:[phone] [facility], [address] [place] [address] [address], [place], [id number], tel:[phone] CVR - [place] No Information 5 Van KAY RVT, RUKHSANA Hernandez. [address] [place] [address], [place], [place], [id number] , [place]. tel:[phone] Referring Provider: Billy Turcios, [address] [place] [address], [address]. tel:[phone] [facility], [address] [place] [address], [place], [id number], tel:[phone] CVR [place] Pain in left leg 5 Van KAY RVT, RUKHSANA Hernandez. [address] [place] [address], [place], [place], [id number] , [place]. tel:[phone] Referring Provider: Billy Turcios, [address] [place] [address], [place], [address]. tel:[phone] [facility], [address] [place] [address] [address], [id number], [place] tel:[phone] CVR - [place] No Information 5 Van KAY RVT, RUKHSANA Hernandez. [address] [place] [address], [place], [place], [id number] , [place]. [phone] Referring Provider: Billy Turcios, [address] [place] [address], [place], [address]. tel:[phone] [facility], [address] [place] [address] [facility], [place], [id number], [place] tel:[phone] CVR - [place] Chronic embolism and thrombosis of left femoral veinPain in left leg 5 Van KAY RVT, RUKHSANA Hernandez. [address] [place] [address], [place], [place], [id number] , [place]. [phone] Referring Provider: Billy Floyd MD J, [address] [place] [address] [address], [place], [address]. tel:[phone] Office/Oupt E&M New Pt 30 Mins- CT & [place] [facility], [address] [place] [address] [facility] [address] [address], [id number], [place] tel:[phone] CVR - [place] Chronic venous hypertension (idiopathic) without complications of left lower extremityPostt hrombotic syndrome with other complications of left lower extremityLymph edema, not elsewhere classifiedHere ditary lymphedema 5 Van KAY RVT, RUKHSANA Hernandez. [address] [place] [address], [place], [place], [id number] , [place]. tel:[phone] [place] [facility], [address] [place] [address] [facility] 1000[facility] 1000[place], [id number], [place] [phone] CVR - [facility] Pain in left leg 5 Van KAY RVT, RPVI Robert. [address] [place] [address], [place], [place], [id number] , [place]. tel:[phone] Referring Provider: David Araujo MD, RVT, RPVI, [address] [place] [address], [place], [address]. tel:[phone] Family History Family Member Type Diagnosis Age At Onset No Information Payers Payer name Insurance type Covered alliance party ID Authoriza tion(s) Medicare SUZY JOY [id number] [facility] AARP Supplement CI [id number] Social History Type Description Quantity Date Captured Comments Alcohol Use Details Unknown Caffeine Use Details Unknown Tobacco Use Status No Information Smoking Status No Information Sex Female Chief Complaint And Reason For Visit No Information Reason For Referral Reason For Referral No Information Plan Of Treatment Date Type Action Status Goal Tobacco cessation counseling completed Goal Diet education completed Referral Ordered: Weight management: Referral to physician timeframe: 3 Months (related to Body mass index (BMI) 25.0-25.9, adult) ordered History Of Present Illness Encounter Date Complaint History Of Prese nt Illness No Information Functional Status Date Functional Assessmen t No Information Instructions Date Instruction Additional Infor mation Compression stocking usage as conservative measure Related to Chronic venous hypertension (idiopathic) without complications of left lower extremity Lifestyle education Related to B verónica mass index (BMI) 25.0-25.9, adult Giving Encouragement to exercise Related to Body mass index (BMI) 25.0-25.9, adult Diet education Related to Body mass index (BMI) 25.0-25.9, adult Patient education booklet given Related to Chronic venous hypertension (idiopathic) without complications of left lower extremity Assessments Type Assessment Date No Information Patient Care Teams Name Effective Dates (start - stop) Status Members No Information
--- NOTE | ~2025-06-26 | XR_ITS ---
EXAMINATION: XR HIP 2 OR MORE VIEWS LEFT HISTORY: M25.552 - Pain in left hip COMPARISON: Comparison is made with the prior examination dated 04/17/2025. FINDINGS: A single AP view of the pelvis and two views of the left hip are submitted. The patient is again noted to be status post left total hip arthroplasty. The orthopedic elements are in anatomic alignment. There is no radiographic evidence of loosening. There is no fracture or dislocation. The right hip joint is maintained. The patient is status post fusion of L4 and L5. The soft tissues are unremarkable. XR/XR hip LT min 2V IMPRESSION: Status post left total hip arthroplasty. Electronically signed by: David Butt MD 06/26/2025 01:48 PM JOSE RAUL
--- OUTSIDE RECORDS SUMMARY | 2025-06-26 08:16 | XMS_ITS | Clinical Summary ---
Author Organization [facility] Address [address] [place] [address] Care Team Providers Care Frame Cleaner Name Role Phone Billy Floyd MD Primary Care Provider [phone] Allergies Active Allergy Reactions Criticality Noted Date [...] Years Used Date Smoking Tobacco: Former Cigarettes 0 Q uit: 01/31/1968 Smokeless Tobacco: Former Alcohol [...] Vaccine 02/21/2025 05/16/2006 COVID-19 Vaccine ( - 2024-2 6 season) 2025 Hepatitis B Vaccines Aged Out No long er eligible based on patient's age to complete this topic Medical Devices Implanted Type Area Supervisor Harvesting Device Identifier Shelf Expiration Date Model / Serial / Lot 7-13 Rise 8mm Cage Implanted:Qt y: 1 on 02/06/2018 by Shemar Small MD at [facility] Cage N/A: Spine Lumbar [employer] [id number] / / 35mm Deangelo Implanted:Qt y: 1 on 02/06/2018 by Shemar Small MD at [facility] Nail/Deangelo N/A: Spine Lumbar [employer] MINIMALLY INVASIVE T [id number] / / 40mm Deangelo Implanted:Qt y: 1 on 02/06/2018 by Shemar Small MD at [facility] Nail/Deangelo N/A: Spine Lumbar [employer] MINIMALLY INVASIVE T [id number] / / 6.5 X 55mm Voyager Screw Implanted:Qt y: 1 on 02/06/2018 by Shemar Small MD at [facility] Screw N/A: Spine Lumbar [employer] MINIMALLY INVASIVE T [id number] / / 6.5 X 50mm Voyager Screw Implanted:Qt y: 1 on 02/06/2018 by Shemar Small MD at [facility] Screw N/A: Spine Lumbar [employer] MINIMALLY INVASIVE T [id number] / / 6.5 X 45mm Voyager Screw Implanted:Qt y: 2 on 02/06/2018 by Shemar Small MD at [facility] Screw N/A: Spine Lumbar [employer] MINIMALLY INVASIVE T [id number] / / Fibrinet Implanted:Qt y: 1 on 02/06/2018 by Shemar Small MD at [facility] Tissue N/A: Spine Lumbar Other 03/20/2018 [id number] / / [id number] Insurance MEDICARE PART A & B [facility] Advance Directives * Full Code (Latest Code Status on File) Date Activated Date Inactivated Comments 02/06/2018 3:26 PM Care Teams Frame Cleaner Relationship Specialty Start Date End Date Billy Floyd MD [address] [address] PCP - General Internal Medicine 01/30/18
== END 2025-06-26 08:03 | disposition home or self-care (01) ==
LOC: HO.HOSX 08:02
PROVIDERS: Visit Provider Orthopaedic Surgery
DX: Z98.890 Other specified postprocedural states (principal); Z87.81 Personal history of (healed) traumatic fracture
CPT/HCPCS: 73502; 99212

== ENCOUNTER 2025-06-26 13:26 | Outpatient (AMB) | payer MEDICARE, SELFPAY ==
--- NOTE | 2025-06-26 13:40 | MHC.OFFVIS ---
Intake Visit Reasons: PO: L SAM Rev. w/NE 04/01/25 Intake Note: Courtney is a 74 year old female who presents today for a post operative follow up about 3 months s/p Revision of ORIF Left Greater Trochanter Periprosthetic fracture 04/01/25. At her last visit she was instructed to begin toe touch weight bearing to 50% body weight with a walker. She reports that she has been working on her toe touch weight bearing. She reports that she is feeling ok When walking she reports feeling instability when weight bearing in the left side. Allergies itraconazole (From Sporanox) Allergy (Severe, Verified 04/17/25 14:20) Facial Swelling, throat swelling HPI HPI PO: L SAM Rev. w/NE 04/01/25: Details: Courtney is 3 months status post left hip revision for fracture greater trochanter. She has been increasing her weight-bearing and walking with a walker. She has no pain. [facility] Medical History COVID-19 Hx of transfusion of packed red blood cells Anemia DVT (deep venous thrombosis) Hx of malignant neoplasm of kidney Fracture neck of femur Suicide attempt Elevated blood pressure reading in office without diagnosis of hypertension Solitary lung nodule Fatigue Scoliosis of lumbar spine Osteopenia Osteoporosis Panniculitis Pes anserinus bursitis Lumbosacral radiculitis Lumbar spondylosis Degeneration of lumbar intervertebral disc Spinal stenosis of lumbar region Piriformis syndrome Allergic rhinitis Carpal tunnel syndrome Migraine Insomnia Hyperlipidemia Vitamin D deficiency Arthritis of left hip Depression Anxiety Arthritis Fatty liver Osteoarthritis Back pain GERD (gastroesophageal reflux disease) History of blood transfusion (~2000) History of kidney cancer Surgical History Hx of surgical procedure History of esophagogastroduodenoscopy (EGD) History of revision of total hip arthroplasty Hx of unilateral oophorectomy History of total left hip arthroplasty History of nephrectomy, left (~2005) History of pubovaginal sling Hx of colonoscopy Hx of tubal ligation Hx of ovarian cystectomy History of back surgery Hx of right knee surgery History of left knee surgery History of hysterectomy H/O bilateral breast biopsy Hx of appendectomy (~1966) Social History Household Members: Spouse Housing: House Are you a primary health care law specialist to a significant other at home: No Do you presently have visiting nurse or other home services: No 75 years or older and lives alone: No Alcohol intake: never Patient Tobacco Use Status: Former Tobacco user Tobacco use type: Cigarette service: No Physical Exam Exam Exam: No pain with hip range of motion. Mild fullness over the lateral hip. Incision well healed. Trendelenburg gait. Results Reviewed Results Reviewed: I personally reviewed relevant radiographs. Unchanged appearance of hardware. There is a fragmented greater trochanter without evidence of further displacement but evidence of healing minimal as well. Assessment & Plan Assessment & Plan (1) Status post-operative repair of closed fracture of left hip: Code(s): Z98.890 - Other specified postprocedural states; Z87.81 - Personal history of (healed) traumatic fracture Category: Surgical Plan: Status post revision left hip for displaced greater trochanteric fragment. Hardware is intact and there is no change in alignment. He has been 3 months she had a begin weight-bearing as tolerated. PT order written. Avoid active abduction and possible. Follow up in 3 months. Orders: Orders XR pelvis 1-2V 06/26/25 M25.559 - Pain in unspecified hip PT Evaluation and Treatment Today Z87.81 - Personal history of (healed) traumatic fracture, Z98.890 - Other specified postprocedural states Coding Level of Care Code Global (62455) Diagnoses Status post-operative repair of closed fracture of left hip Z98.890; Z87.81
== END 2025-06-26 14:03 | disposition home or self-care (01) ==
LOC: HO.HOS 13:26
PROVIDERS: Visit Provider Orthopaedic Surgery
DX: Z98.890 Other specified postprocedural states (principal); Z87.81 Personal history of (healed) traumatic fracture
CPT/HCPCS: 99024

== ENCOUNTER → 2025-06-26 13:33 | Outpatient (BNV) | payer MEDICARE, SELFPAY | PROVIDERS: Visit Provider Radiology Diagnostic Radiology | DX: M25.552 Pain in left hip (principal); Z96.642 Presence of left artificial hip joint | CPT/HCPCS: 73502 ==